=== PATIENT | male | born 1950 | race Caucasian/White ===

== ENCOUNTER 2017-05-04 03:11 | Emergency (ER) | payer MEDICARE, SELFPAY ==
[2017-05-04 03:12] VITALS: BP 147/76; PULSE 65; RESP 17; TEMP 36.6; O2SAT 98; BMI 24.0
--- NOTE | 2017-05-04 03:29 | CT_ITS ---
STUDY: CT ABDOMEN AND PELVIS WITHOUT CONTRAST REASON FOR EXAM: Male, 66 years old. Left flank pain RADIATION DOSAGE (If Supplied By Facility): CTDIvol = ( 6.31 ) mGy, DLP = ( 321.82 ) mGycm TECHNIQUE: Transaxial images were obtained from the dome of the diaphragm to the symphysis pubis without oral contrast, and without intravenous contrast. Sagittal and coronal images were reconstructed. Individualized dose optimization techniques were used for this CT. COMPARISON: October 28, 2013 FINDINGS: A stable 5 mm nodule is present in the right lower lobe, considered benign. The visualized portions of the heart are within normal limits. Normal liver. Normal gallbladder and extrahepatic biliary system. Normal spleen. Normal pancreas. Normal bilateral adrenal glands. Multiple bilateral nonobstructing renal calculi. A 5 mm stone is present in the distal left ureter at the level of the ureterovesical junction. There are changes of moderate acute obstructive uropathy on the left. Normal visualized stomach. Normal small intestine. Normal colon. The appendix is visualized and appears normal. There is diffuse atherosclerotic calcification of the abdominal aorta, without a demonstrated aneurysm. Normal inferior vena cava. Normal retroperitoneum. Normal urinary bladder. Normal abdominal wall. Bilateral nondisplaced L5-S1 pars interarticularis defects. CT/Abdomen/Pelvis without Cont IMPRESSION: A 5 mm stone is present in the distal left ureter at the level of the ureterovesical junction. There are changes of moderate acute obstructive uropathy on the left. Electronically Signed: Carlos Graham MD at 4:13 EST Tel , Service support ,
[2017-05-04 03:42] LABS: Absolute Lymphocyte Count 1.65 X10^3/ul (0.83-4.51); Absolute Neutrophil Count 9.8 X10^3/uL (2.0-7.7); Basophil# 0.02 X10^3/uL; Basophil% 0.2 % (0-1); Eosinophil# 0.45 X10^3/uL; Eosinophils% 3.4 % (0-5); Hemoglobin 13.3 g/dl (13.0-16.5); Lymphocyte # 1.65 X10^3/ul (4.0); Lymphocyte % 12.6 % (19-41); Mean Corpuscular Hgb 31.8 pg (27.0-32.0); Mean Corpuscular Volume 90.9 fL (80-94); Mean Platelet Vol. 8.7 fl (6.2-12.0); Monocyte# 1.16 X10^3/uL; Monocyte% 8.8 % (0-10); Neutrophil # 9.81 X10^3/uL (2.7-7.7); Neutrophil % 74.8 % (47-70); Platelet Count 307 K/mm3 (150-450); RBC Distribution Width SD 42.4 fl (35.1-43.9); Red Blood Count 4.18 M/mm3 (4.6-6.2); White Blood Count 13.1 K/mm3 (4.4-11.0)
[2017-05-04 03:46] LABS: POSITIVE COUNT NO; POSITIVE DIFFERENTIAL NO; POSITIVE MORPHOLOGY NO
[2017-05-04 03:51] LABS: Anion Gap 11 (5-15); BUN 31 mg/dL (7-18); BUN/Creat Ratio 19.6 RATIO (10-20); Calcium,Total 9.3 mg/dL (8.5-10.1); Chloride 105 mmol/L (98-107); Creatinine, Serum 1.58 mg/dL (0.70-1.30); EST Glomerular Filtration Rate 47 mL/min (>60); Est Glom Filt Rate - Afr Amer 56 mL/min (>60); Estimated Creatinine Clearance 46.84 ml/min; Glucose 127 mg/dL (74-106); Potassium 4.3 mmol/L (3.5-5.1); Sodium Level 140 mmol/L (136-145)
[2017-05-04] MEDS: Ketorolac 30 MG/ML Syringe IV (04:04)
[2017-05-04] MEDS: 0.9% Normal Saline 1,000 ML 250 ML IV (04:04)
[2017-05-04 04:14] LABS: Mucous, Urine 0 SEEN /hpf (<or=2+); Red Blood Cells-Urine 0 SEEN /hpf (0-5)
[2017-05-04 04:28] LABS: Color, Urine Yellow (Yellow); Glucose, Dipstick Normal (Normal); Ketone-Dipstick Negative (Negative); Leukocyte Esterase-Dipstick Negative /ul (Negative); Nitrite-Dipstick Negative (Negative); Occult Blood-Urine 150 /ul (Negative); Protein-Dipstick Negative (Negative); Urine Bilirubin Dipstick Negative (Negative); Urine Clarity Sl. Cloudy (Clear); Urine Urobilinogen Normal (Normal)
--- NOTE | 2017-05-04 04:29 | ED.VISSUMM ---
- ER Visit Summary Date of Service: 05/04/17 Chief Complaint: Suprapubic pain History of Present Illness: The patient is a 66 M sudden suprapubic tenderness awakening him at midnight. No nausea or vomiting. Normal bowel movement prior to midnight. Patient states similar symptoms in 2013 was found to have a kidney stone. Denies urinary symptoms. Her pain states constipation feeling however 7 out of 10. Colonoscopy 5-7 years ago with no acute findings. Denies any history of gastric ulcers or acute kidney injury. Past medical history: Hypertension, hypercholesterolemia, IA with one right coronary stent. GERD, sarcoidosis, kidney stones. Physical Examination: General: Alert and oriented ?3, mild distress HEENT: Normocephalic, atraumatic. Moist mucosa membranes Neck: supple, nontender. Cardiovascular: Regular rate and rhythm, no murmurs Respiratory: Normal breath sounds, symmetric, no distress Abdomen: Soft, mild suprapubic tenderness without guarding or rebound, nondistended. Normal bowel sounds. Back: No CVA tenderness. Extremities: Nontender, no edema, pulses intact ?4 Neuro: no focal neurological deficits. Test Results: WBC 13.1. Creatinine 1.58. Urine hematuria, no infection. CT abdomen pelvis: 5 mm left UVJ stone with moderate hydro- Emergency Department Course and Treatment: Patient nontoxic, nonsurgical abdomen. History similar with suprapubic discomfort, renal stone protocol initiated. States he had no kidney injuries or ulcers in the past therefore morphine and Toradol with and fluids were given. Creatinine did return slightly elevated 1.58. White count 13. Urine with blood without infection. CT scan notes a 5 mm left UVJ stone with moderate hydronephrosis. His symptoms were more controlled. He was started on Flomax he does see Dr. Lane. Plan will be continue Flomax, Percocet and Zofran as needed. Will hold NSAIDs due to renal insufficiency. States he has stone tested in the past may have been calcium stones. Treatment Plan: Symptomatic Disposition: [] Impression: Left urolithiasis This note was generated with [employer] dictation software. It may contain incorrect words, spelling, and punctuation that were not noted in review of the chart prior to signing ED Disposition - Plan for ED Patient: Disposition: Home or Assisted Living Chief Complaint: Abd Pain Diagnosis: Urolithiasis Instructions: ED Stone Renal W Colic Prescriptions: Oxycodone HCl/Acetaminophen [Percocet 5/325] 1 tablet PO Q6H PRN PRN 3 Days #12 tablet PRN Reason: Pain Ondansetron [Zofran Odt] 8 mg PO Q8H PRN PRN #10 tab PRN Reason: Nausea Tamsulosin HCl [Flomax] 0.4 mg PO DAILY #7 capsule Referrals: Abel Cunningham [Primary Care Provider] - Rufus Lane MD [STAFF PHYSICIAN] - 3-5 Days
[2017-05-04 04:35] LABS: White Blood Cells 0-5 SEEN /hpf (0-5)
[2017-05-04 04:36] LABS: Amorphous Sediment 1+; Bacteria 1+ /hpf (None Seen); Squamous Epithelial Cells - UA 0-5 SEEN /hpf (0-5)
[2017-05-04] MEDS: Tamsulosin HCl 0.4 MG Capsule PO (05:09)
[2017-05-04 05:15] VITALS: BP 132/59; PULSE 71; RESP 17; O2SAT 98
--- NOTE | 2017-05-04 05:15 | ED.RN ---
IV DC'ED, CATHETER INTACT, SMALL GAUZE DRESSING PLACED. PT WAITING UNTIL APPROX 6 AM TO CALL FOR RIDE.
--- NOTE | 2017-05-04 06:22 | ED.RN ---
DISCHARGE INSTRUCTIONS GIVEN TO AND REVIEWED WITH PATIENT, PATIENT DENIES QUESTIONS OR CONCERNS AND VOICES UNDERSTANDING OF DISCHARGE INSTRUCTIONS. PT AMBULATES OUT OF ROOM WITHOUT DIFFICULTY.
== END 2017-05-04 06:23 | disposition home or self-care (01) ==
PROVIDERS: Emergency Provider Emergency Medicine; Family Provider Internal Medicine; PCP Internal Medicine
DX: N13.2 Hydronephrosis with renal and ureteral calculous obstruction (principal); I25.10 Atherosclerotic heart disease of native coronary artery without angina pectoris; I25.2 Old myocardial infarction; K21.9 Gastro-esophageal reflux disease without esophagitis; I10 Essential (primary) hypertension; E78.00 Pure hypercholesterolemia, unspecified; D86.9 Sarcoidosis, unspecified; Z87.442 Personal history of urinary calculi; Z95.5 Presence of coronary angioplasty implant and graft; Z79.82 Long term (current) use of aspirin; Z79.899 Other long term (current) drug therapy
CPT/HCPCS: 74176; 80048; 81001; 85025; 96361; 96374; 96375; 99284; J7030; A4216

== ENCOUNTER 2017-05-18 12:20 | Day surgery (SDC) | payer MEDICARE, SELFPAY ==
[2017-05-11 09:19] VITALS: BP 142/68; PULSE 64; RESP 16; TEMP 36.6; O2SAT 99; BMI 24.5
[2017-05-18 12:40] VITALS: BP 136/71; PULSE 63; RESP 14; TEMP 36.9; O2SAT 98; BMI 24.5
[2017-05-18] MEDS: Cefazolin 2 GM in 0.9% Normal Saline 100 ML IV (15:15)
--- NOTE | 2017-05-18 15:49 | PCM.DC.URO ---
Discharge Diet: Light diet - advance as tolerated Discharge Activity: Return to Normal Activity Call your doctor if you observe: Fever of 101 or Higher, Uncontrolled pain Instructions: Shock Wave Lithotripsy Allergies/Adverse Reactions: Allergies No Known Allergies Allergy (Verified 05/11/17 08:58) Medications to take at Discharge Amlodipine [Norvasc] 10 mg PO QHS 05/04/17 Aspirin [Aspirin, Baby] 81 mg PO DAILY@0800 05/04/17 Atorvastatin Calcium [Lipitor] 40 mg PO QHS 05/04/17 Clopidogrel Bisulfate [Clopidogrel] 75 mg PO DAILY 05/04/17 Losartan Potassium [Cozaar] 100 mg PO DAILY 05/04/17 Omeprazole [Prilosec] 20 mg PO QODAY 05/04/17 Ranitidine [Zantac] 150 mg PO QODAY 05/04/17 Tamsulosin HCl [Flomax] 0.4 mg PO DAILY #7 capsule 05/04/17 Ascorbic Acid [Vitamin C] 500 mg PO DAILY 05/11/17 Hydrocodone/Acetaminophen [[place] 5-325 Tablet] 1 ea PO Q4H PRN PRN 7 Days #20 tab 05/18/17 The following prescriptions were given: Hydrocodone/Acetaminophen [[place] 5-325 Tablet] 1 ea PO Q4H PRN PRN 7 Days #20 tab PRN Reason: Pain Primary Care Physician: Abel Cunningham [Primary Care Provider] - Please Follow Up With: Rufus Lane MD - call if need to change appt. When: SundayJune 05 at 11 am, get xray before appt.
--- NOTE | 2017-05-18 15:55 | DCINST_ITS ---
Discharge Diet: Light diet - advance as tolerated Discharge Activity: Return to Normal Activity Call your doctor if you observe: Fever of 101 or Higher, Uncontrolled pain Instructions: Shock Wave Lithotripsy Allergies/Adverse Reactions: Allergies No Known Allergies Allergy (Verified 05/11/17 08:58) Medications to take at Discharge Amlodipine [Norvasc] 10 mg PO QHS 05/04/17 Aspirin [Aspirin, Baby] 81 mg PO DAILY@0800 05/04/17 Atorvastatin Calcium [Lipitor] 40 mg PO QHS 05/04/17 Clopidogrel Bisulfate [Clopidogrel] 75 mg PO DAILY 05/04/17 Losartan Potassium [Cozaar] 100 mg PO DAILY 05/04/17 Omeprazole [Prilosec] 20 mg PO QODAY 05/04/17 Ranitidine [Zantac] 150 mg PO QODAY 05/04/17 Tamsulosin HCl [Flomax] 0.4 mg PO DAILY #7 capsule 05/04/17 Ascorbic Acid [Vitamin C] 500 mg PO DAILY 05/11/17 Hydrocodone/Acetaminophen [[place] 5-325 Tablet] 1 ea PO Q4H PRN PRN 7 Days #20 tab 05/18/17 The following prescriptions were given: Hydrocodone/Acetaminophen [[place] 5-325 Tablet] 1 ea PO Q4H PRN PRN 7 Days #20 tab PRN Reason: Pain Primary Care Physician: Abel Cunningham [Primary Care Provider] - Please Follow Up With: Rufus Lane MD - call if need to change appt. When: SundayJune 05 at 11 am, get xray before appt.
--- NOTE | 2017-05-18 16:12 | PCM.OPRPT ---
Problem List (1) Calculus of left kidney Status: Acute Report of Operation Date of Procedure: 05/18/17 Pre-Operative Diagnosis: Left kidney stones and distal left ureter stone Post-Operative Diagnosis: Ureteral stone had passed, treatment of left kidney stones Surgery/Procedure Performed:: Cystoscopy and placement of a left ureteral catheter and left extracorporeal shockwave lithotripsy Description of Surgical Findings:: 66-year-old male was taken back to the operating room at the smooth induction of general anesthesia he was placed supine on the table the penis and testicles were prepped and draped in usual sterile fashion. Went into the bladder with a 21 [place] rigid cystourethroscope, the entire length the urethra is normal sphincter normal the prostate is normal cannulated the left ureteral orifice with a Glidewire and a Pollack catheter and was made not able to see a stone in the distal left ureter therefore no treatment was done to get past the stone. Preoperatively reported no more pain. I then removed the wire and drain the bladder remove the cystoscope we then repositioned the patient on the lithotripter table he had some stones lower pole the left kidney the stones and underwent treatment with shockwave lithotripsy a total of 3000 shocks were delivered to the stones at a rate of 90, power of 7. At the end of the treatment cycle looks of the stones only broken some not a complete fragmentation appeared to be really hard stones he may require either a second treatment or ureteroscopy and laser to break the stones no stent was placed at the stones are nonobstructive patient anesthetic was reversed and he was taken back to PACU in good condition. He will follow-up in the office with a KUB. Type of Anesthesia:: General Drains: none - Admit VTE Documentation VTE Present on Admission: No VTE Mechan Device Prophylaxis: SCD's
[2017-05-18 16:26] VITALS: BP 120/68; BP 136/71; PULSE 68; RESP 18; TEMP 36.4; O2SAT 95
[2017-05-18 16:30] VITALS: BP 126/71; BP 136/71; PULSE 68; RESP 18; O2SAT 96
[2017-05-18 16:46] VITALS: BP 135/74; BP 136/71; PULSE 70; RESP 18; TEMP 36.2; O2SAT 98
[2017-05-18 18:25] VITALS: BP 136/71
== END 2017-05-18 18:26 | disposition home or self-care (01) ==
LOC: SDC 12:21 → AC 12:22
PROVIDERS: Family Provider Internal Medicine; PCP Internal Medicine; Visit Provider Urology
PROC: (CPT 50590; principal; 2017-05-18 14:00)
DX: N20.2 Calculus of kidney with calculus of ureter (principal); I25.2 Old myocardial infarction; H91.90 Unspecified hearing loss, unspecified ear; H54.7 Unspecified visual loss; I10 Essential (primary) hypertension; Z95.5 Presence of coronary angioplasty implant and graft; Z79.02 Long term (current) use of antithrombotics/antiplatelets; Z79.899 Other long term (current) drug therapy; Z79.82 Long term (current) use of aspirin; K21.9 Gastro-esophageal reflux disease without esophagitis; E78.00 Pure hypercholesterolemia, unspecified; Z87.442 Personal history of urinary calculi; Z85.828 Personal history of other malignant neoplasm of skin
CPT/HCPCS: 50590; 86850; 86900; J7120; C1769; J2405

== ENCOUNTER → 2017-06-04 16:00 | Outpatient (CLI) | payer MEDICARE, SELFPAY ==
--- NOTE | 2017-06-04 16:00 | RAD_ITS ---
STUDY: X-RAY - ABDOMEN/PELVIS REASON FOR EXAM: Male, 66 years old. Left kidney stone status post lithotripsy. TECHNIQUE: Single AP view of the abdomen / pelvis. COMPARISON: CT scan 05/04/2017, KUB 11/21/2016. FINDINGS: Normal visualized lung bases. There is an unremarkable bowel gas pattern. There is no demonstrated free abdominal air. There is a 1.4 cm elongated stone or collection of tiny stones in the lower pole of the left kidney, very likely a collection of gravel from previous lithotripsy. No other definite renal or ureteral stones. The visualized liver, spleen and kidneys are grossly normal in size and morphology. Normal soft tissue structures. Normal visualized osseous structures. RAD/Abdomen Single View IMPRESSION: Probable 1.4 cm collection of tiny stones in the lower pole of the left kidney. Electronically Signed: Amol Fiore MD at 23:35 EDT , Service support ,
== END ==
PROVIDERS: Family Provider Internal Medicine; PCP Internal Medicine; Visit Provider Nurse Practitioner Adult Health
DX: N20.0 Calculus of kidney (principal)
CPT/HCPCS: 74018

== ENCOUNTER → 2017-06-12 15:55 | Outpatient (CLI) | payer MEDICARE, SELFPAY ==
[2017-06-12 17:34] LABS: BNP,B-Type NATRIURETIC PEPTIDE 24.4 pg/mL (0-100)
[2017-06-12 17:37] LABS: Anion Gap 8 (5-15); BUN 23 mg/dL (7-18); BUN/Creat Ratio 16.2 RATIO (10-20); Calcium,Total 9.2 mg/dL (8.5-10.1); Chloride 107 mmol/L (98-107); Creatinine, Serum 1.42 mg/dL (0.70-1.30); EST Glomerular Filtration Rate 53 mL/min (>60); Est Glom Filt Rate - Afr Amer 64 mL/min (>60); Glucose 74 mg/dL (74-106); Potassium 4.4 mmol/L (3.5-5.1); Sodium Level 141 mmol/L (136-145)
== END ==
PROVIDERS: Family Provider Internal Medicine; PCP Internal Medicine; Visit Provider Physician Assistant Medical
DX: I25.10 Atherosclerotic heart disease of native coronary artery without angina pectoris (principal); I15.9 Secondary hypertension, unspecified; R06.09 Other forms of dyspnea
CPT/HCPCS: 36415; 80048; 83880

== ENCOUNTER → 2017-09-07 06:45 | Outpatient (CLI) | payer MEDICARE, SELFPAY ==
--- NOTE | 2017-09-07 14:30 | STRESSREP_ITS ---
Stress Test Report Exercise myocardial perfusion stress test. 67-year-old man with a history of shortness of breath previous known coronary artery disease in the left anterior descending artery distribution. Medication aspirin clopidogrel Cozaar Prilosec amlodipine atorvastatin. Stress protocol: Resting EKG demonstrates sinus rhythm with a rate of 62 bpm normal intervals and noted resting blood pressure is 138/80 mmHg. The patient exercised according to regular Teo protocol for 7 minutes and 15 seconds attaining a maximum heart rate of 141 bpm 92% of maximum predicted heart rate. Patient completed 1 minute and 15 seconds to stage III of the Teo protocol. The maximum workload attained was 8.9 metabolic equivalents. At rest no ST or T- wave changes were noted suggest ischemia. At peak exercise was approximately 1.[address] depression noted in lead V5 and V6 which rapidly normalized during recovery. The above findings are not diagnostic of ischemia. The resting blood pressure 138/80 mmHg with a peak blood pressure 184/40 mmHg rate pressure product was 24,400. Patient experienced slight shortness of breath but no chest pain. Myocardial perfusion protocol: 10.8 mCi of technetium 99m sestamibi was injected at rest. The patient exercised according to regular Teo protocol for 7 minutes and 15 seconds attaining 92% of maximum predicted heart rate at peak exercise 32.3 mCi of technetium 99m sestamibi was injected stress images were obtained stress and rest images were reconstructed and compared in the short axis vertical long and horizontal long axis. Gated images were also obtained. Perfusion SPECT analysis: Review of the stress images demonstrate normal uptake of tracer noted in all areas of the myocardium. The resting images similarly demonstrate normal uptake of tracer noted in all areas of the myocardium. No areas of reversibility are noted suggest ischemia and no previous infarct is noted. Gated SPECT analysis. The gated ejection fraction is 63%. Conclusion: Exercise myocardial perfusion stress test with no evidence of ischemia noted at a moderate workload. No clinical angina noted. Preserved ejection fraction.
== END ==
PROVIDERS: Family Provider Internal Medicine; PCP Internal Medicine; Visit Provider Internal Medicine Cardiovascular Disease
DX: R06.02 Shortness of breath (principal)
CPT/HCPCS: 78452; 93017; A9500; A4216

== ENCOUNTER → 2017-11-23 07:20 | Outpatient (CLI) | payer MEDICARE, SELFPAY ==
[2017-11-23 07:46] LABS: Absolute Lymphocyte Count 1.08 X10^3/ul (0.83-4.51); Absolute Neutrophil Count 4.6 X10^3/uL (2.0-7.7); Basophil# 0.02 X10^3/uL; Basophil% 0.3 % (0-1); Eosinophil# 0.57 X10^3/uL; Eosinophils% 7.7 % (0-5); Hematocrit 37.7 % (40-54); Hemoglobin 12.7 g/dl (13.0-16.5); Lymphocyte # 1.08 X10^3/ul (4.0); Lymphocyte % 14.6 % (19-41); Mean Corp Hgb Conc 33.7 g/gl (32-36); Mean Corpuscular Hgb 30.9 pg (27.0-32.0); Mean Corpuscular Volume 91.7 fL (80-94); Mean Platelet Vol. 8.4 fl (6.2-12.0); Monocyte% 14.9 % (0-10); Neutrophil # 4.61 X10^3/uL (2.7-7.7); Neutrophil % 62.4 % (47-70); POSITIVE COUNT NO; POSITIVE DIFFERENTIAL NO; POSITIVE MORPHOLOGY NO; Platelet Count 262 K/mm3 (150-450); RBC Distribution Width CV 13.1 % (11.6-14.6); RBC Distribution Width SD 43.8 fl (35.1-43.9); Red Blood Count 4.11 M/mm3 (4.6-6.2); White Blood Count 7.4 K/mm3 (4.4-11.0)
[2017-11-23 08:12] LABS: AST(SGOT) 21 U/L (15-37); Alanine Aminotransfer ALT/SGPT 31 U/L (16-61); Albumin, Serum 3.8 g/dL (3.2-5.0); Alkaline Phosphatase 80 U/L (45-117); Anion Gap 6 (5-15); BUN 32 mg/dL (7-18); BUN/Creat Ratio 18.7 RATIO (10-20); Calcium,Total 9.2 mg/dL (8.5-10.1); Chloride 107 mmol/L (98-107); Cholesterol 128 mg/dL (200); Creatinine, Serum 1.71 mg/dL (0.70-1.30); EST Glomerular Filtration Rate 43 mL/min (>60); Est Glom Filt Rate - Afr Amer 51 mL/min (>60); Globulin 3.8 g/dL (2.2-4.2); Glucose 92 mg/dL (74-106); High Density Lipoprotein 38 mg/dL; PSA,Total - Annual Screen 3.61 ng/mL (0.00-4.00); Potassium 4.7 mmol/L (3.5-5.1); Protein, Total 7.6 g/dL (6.4-8.2); Sodium Level 142 mmol/L (136-145); Triglycerides 181 mg/dL; Very Low Density Lipoprotein 36 mg/dL (5-40)
== END ==
PROVIDERS: Family Provider Internal Medicine; PCP Internal Medicine; Referring Provider Internal Medicine; Visit Provider Internal Medicine
DX: I25.10 Atherosclerotic heart disease of native coronary artery without angina pectoris (principal); Z12.5 Encounter for screening for malignant neoplasm of prostate
CPT/HCPCS: 36415; 80053; 80061; 84153; 85025; G0103

== ENCOUNTER → 2018-01-07 14:07 | Outpatient (CLI) | payer MEDICARE, SELFPAY ==
[2018-01-07 16:08] LABS: BUN 36 mg/dL (7-18); Creatinine, Serum 1.64 mg/dL (0.70-1.30); Glucose 86 mg/dL (74-106)
[2018-01-07 16:09] LABS: Anion Gap 9 (5-15); Chloride 108 mmol/L (98-107); EST Glomerular Filtration Rate 45 mL/min (>60); Est Glom Filt Rate - Afr Amer 54 mL/min (>60); Potassium 4.1 mmol/L (3.5-5.1); Sodium Level 140 mmol/L (136-145)
== END ==
PROVIDERS: Family Provider Internal Medicine; PCP Internal Medicine; Referring Provider Internal Medicine; Visit Provider Internal Medicine
DX: N18.3 Chronic kidney disease, stage 3 (moderate) (principal)
CPT/HCPCS: 36415; 80048

== ENCOUNTER → 2018-02-20 08:16 | Outpatient (CLI) | payer MEDICARE, SELFPAY ==
--- NOTE | 2018-02-20 08:19 | US_ITS ---
STUDY: RENAL ULTRASOUND - COMPLETE REASON FOR EXAM: Male, 67 years old. TECHNIQUE: Ultrasound evaluation of the kidneys was performed with real-time and static kenney-scale imaging. COMPARISON: None. FINDINGS: RIGHT KIDNEY: Normal location of the right kidney, which is normal in size. The right kidney measures 9.7 x 4.5 x 4 cm cm. There is a normal cortex of the right kidney. The renal cortex measures 1 cm. There is no right renal mass or cyst. There are no right renal calculi. There is no right hydronephrosis. DISTAL RIGHT URETER: There is non-visualization of the distal right ureter. There is no demonstrated right ureterovesical junction calculus. There is a visualized right ureteral jet. LEFT KIDNEY: Normal location of the left kidney, which is normal in size. The left kidney measures 9.7 x 5.9 x 5 cm cm. There is a normal cortex of the left kidney. The renal cortex measures 1.5 cm. There is no left renal mass or cyst. There are 3 calculi measure: 5 mm, 2 mm of 2 mm. There is no left hydronephrosis. DISTAL LEFT URETER: There is non-visualization of the distal left ureter. There is no demonstrated left ureterovesical junction calculus. There is a visualized left ureteral jet. BLADDER: The distended urinary bladder has a volume of 327 ml. The empty urinary bladder has a volume of 39 ml. There is a normal wall thickness of the distended urinary bladder. There is no demonstrated mass within the urinary bladder. There are no demonstrated bladder calculi. US/Kidney and Bladder IMPRESSION: Normal ultrasound of the kidneys and urinary bladder. Electronically Signed: Luisa Velazquez, at 11:03 EST Tel , Service support ,
== END ==
PROVIDERS: Family Provider Internal Medicine; PCP Internal Medicine; Referring Provider Internal Medicine Nephrology; Visit Provider Internal Medicine Nephrology
DX: N18.3 Chronic kidney disease, stage 3 (moderate) (principal)
CPT/HCPCS: 76770

== ENCOUNTER → 2018-05-03 06:45 | Outpatient (CLI) | payer MEDICARE, SELFPAY ==
[2017-08-16 13:23] VITALS: BMI 23.9
[2018-05-03 07:40] LABS: ALB/GLOB Ratio 1.1 RATIO (0.9-2.4); AST(SGOT) 25 U/L (15-37); Alanine Aminotransfer ALT/SGPT 29 U/L (16-61); Albumin, Serum 3.9 g/dL (3.2-5.0); Alkaline Phosphatase 91 U/L (45-117); Anion Gap 6 (5-15); BUN 26 mg/dL (7-18); BUN/Creat Ratio 17.8 RATIO (10-20); Calcium,Total 8.7 mg/dL (8.5-10.1); Chloride 109 mmol/L (98-107); Creatinine, Serum 1.46 mg/dL (0.70-1.30); EST Glomerular Filtration Rate 51 mL/min (>60); Est Glom Filt Rate - Afr Amer 62 mL/min (>60); Globulin 3.7 g/dL (2.2-4.2); Glucose 95 mg/dL (74-106); Potassium 4.7 mmol/L (3.5-5.1); Protein, Total 7.6 g/dL (6.4-8.2); Sodium Level 139 mmol/L (136-145)
== END ==
PROVIDERS: Family Provider Internal Medicine; PCP Internal Medicine; Referring Provider Internal Medicine; Visit Provider Internal Medicine
DX: N18.3 Chronic kidney disease, stage 3 (moderate) (principal); I25.10 Atherosclerotic heart disease of native coronary artery without angina pectoris
CPT/HCPCS: 36415; 80053

== ENCOUNTER → 2018-06-18 | Outpatient (CLI) | payer MEDICARE, SELFPAY ==
[2018-06-18 15:34] LABS: Absolute Neutrophil Count 3.8 X10^3/uL (2.0-7.7); Basophil# 0.02 X10^3/uL; Basophil% 0.3 % (0-1); Eosinophil# 0.42 X10^3/uL; Eosinophils% 6.7 % (0-5); Hematocrit 36.7 % (40-54); Hemoglobin 12.5 g/dl (13.0-16.5); Lymphocyte % 17.5 % (19-41); Mean Corp Hgb Conc 34.1 g/gl (32-36); Mean Corpuscular Hgb 31.1 pg (27.0-32.0); Mean Corpuscular Volume 91.3 fL (80-94); Mean Platelet Vol. 8.3 fl (6.2-12.0); Monocyte# 0.96 X10^3/uL; Monocyte% 15.3 % (0-10); Neutrophil # 3.78 X10^3/uL (2.7-7.7); Platelet Count 271 K/mm3 (150-450); Red Blood Count 4.02 M/mm3 (4.6-6.2); White Blood Count 6.3 K/mm3 (4.4-11.0)
[2018-06-18 15:35] LABS: POSITIVE COUNT NO; POSITIVE DIFFERENTIAL NO; POSITIVE MORPHOLOGY NO
[2018-06-18 15:46] LABS: Albumin, Serum 4.1 g/dL (3.2-5.0); BUN 28 mg/dL (7-18); BUN/Creat Ratio 19.2 RATIO (10-20); Chloride 108 mmol/L (98-107); Creatinine, Serum 1.46 mg/dL (0.70-1.30); EST Glomerular Filtration Rate 51 mL/min (>60); Est Glom Filt Rate - Afr Amer 62 mL/min (>60); Glucose 91 mg/dL (74-106); PSA,Total- Diagnostic 4.03 ng/mL (0.0-4.0); Phosphorus 3.2 mg/dL (2.5-4.9); Potassium 4.5 mmol/L (3.5-5.1); Sodium Level 137 mmol/L (136-145)
[2018-06-18 15:56] LABS: PTHIN 31.2 pg/mL (18.4-80.1); Vitamin D,25 Hydroxy 15.5 ng/mL (29.95-100.01)
[2018-06-18 16:10] LABS: Protein, Urine (Random) < 6.0 mg/dL (<11.9)
== END | disposition home or self-care (01) ==
PROVIDERS: Family Provider Internal Medicine; PCP Internal Medicine; Referring Provider Internal Medicine Nephrology; Visit Provider Internal Medicine Nephrology
DX: N18.3 Chronic kidney disease, stage 3 (moderate) (principal); R97.20 Elevated prostate specific antigen [PSA]; Z13.0 Encounter for screening for diseases of the blood and blood-forming organs and certain disorders involving the immune mechanism
CPT/HCPCS: 36415; 80069; 82306; 82570; 83970; 84153; 84156; 85025

== ENCOUNTER → 2018-08-08 | Outpatient (CLI) | payer MEDICARE, SELFPAY ==
[2017-08-16 13:23] VITALS: BMI 23.9
--- NOTE | 2018-08-08 | IMM_PTH ---
PATIENT: ANDRÉS GUEVARA LOC: [facility] U#:[id number] AGE/SX: 68/M ROOM: RE08/08/[address]: Dr. Rufus Lane MD : 1950 BED: DIS: 08/08/2018 SPEC #: [id number] RECD: 08/12/18 10:31 STATUS: GUERITA REQ #: [id number] ALE: 08/08/18 00:[address]: Rufus Lane DEPT: IMMUNOHISTOCHEMISTRY RECD BY: Jayde Melo ENTERED: 08/12/18 10:33 SP TYPE: IMMUNO OTHR DR: Dr. Abel Cunningham MD Tissues: C - PROSTATE RIGHT D - PROSTATE LEFT E - PROSTATE LEFT F - PROSTATE LEFT Procedures: 34BE12 (add) P40 (add) 34BE12 (initial) PHYSICIAN & INSTITUTION [place] [id number] SPECIMEN INFORMATION: Tissue Source: C - Right base, D - Left apex, E - Left mid, F - Left base Clinical Info: Elevated PSA Specimen Number: [id number] C-F CPT code: 85675, 06846 x7 METHODOLOGY: Deparaffinized sections of prefer/formalin-fixed tissue or PAP/DQ stained slides are incubated with monoclonal/polyclonal antibodies/oligonucleotide probes. Localization is made via biotin free immunoperoxidase method. Appropriate controls are performed and reacted as expected. Results on target cell population are indicated in the following table: RESULTS: ANTIBODY / CLONE RESULT Block C P40 (BC28) negative 34BE12 (34BE12) negative Block D P40 (BC28) negative 34BE12 (34BE12) negative Block E P40 (BC28) positive 34BE12 (34BE12) positive Block F P40 (BC28) positive 34BE12 (34BE12) positive These tests were developed and their performance characteristics determined by [facility]. They may not have been cleared or approved by the U.S. Food and Drug Administration. The FDA has determined that such clearance or approval is not necessary. INTERPRETATION: C. Right prostate, base, core biopsy: Adenocarcinoma. D. Left prostate, apex, core biopsy: Adenocarcinoma. E. Left prostate, mid, core biopsy: Focal high-grade prostatic intraepithelial neoplasia. F. Left prostate, base, core biopsy: Focal high-grade prostatic intraepithelial neoplasia. AM:tutu 08/13/18
--- NOTE | 2018-08-08 08:00 | PROSBIL_PTH ---
PATIENT: ANDRÉS GUEVARA LOC: [facility] U#:[id number] AGE/SX: 68/M ROOM: RE08/08/[address]: Dr. Rufus Lane MD : 1950 BED: DIS: 08/08/2018 SPEC #: [id number] RECD: 08/08/18 14:51 STATUS: GUERITA DINESH #: [id number] ALE: 08/08/18 08:[address]: Rufus Lane DEPT: SURGICAL PATHOLOGY RECD BY: Madan Martinez ENTERED: 08/09/18 09:05 SP TYPE: PROST BX SUN DR: Dr. Abel Cunningham MD Tissues: A - PROSTATE RIGHT B - PROSTATE RIGHT C - PROSTATE RIGHT D - PROSTATE LEFT E - PROSTATE LEFT F - PROSTATE LEFT Procedures: PROSTATE BX HEADER OPERATION: Prostate biopsy PRE-OP DIAGNOSIS: R97.20 TISSUE SUBMITTED: A - Right apex, B - Right mid, C - Right base, D - Left apex, E - Left mid, F - Left base MICROSCOPIC DIAGNOSIS A. Right prostate, apex, core biopsy: Adenocarcinoma: Nelson grade: 6 (3+3) Cores involved: 1 out of 1 core Tissue involved: 60% Greatest tumor length: 9 mm (discontinuous) B. Right prostate, mid, core biopsy: Adenocarcinoma: [place] grade: 6 (3+3) Cores involved: 2 out of 2 cores Tissue involved: 35% Greatest tumor length: 4 mm C. Right prostate, base, core biopsy: Adenocarcinoma: Nelson grade: 6 (3+3) Cores involved: 2 out of 2 cores Tissue involved: 35% Greatest tumor length: <1 mm (two foci each measuring <1 mm each) See comment. D. Left prostate, apex, core biopsy: Adenocarcinoma: [place] grade: 6 (3+3) Cores involved: 1 out of 1 core Tissue involved: 2% Greatest tumor length: 1 mm See comment. E. Left prostate, mid, core biopsy: Focal high-grade prostatic intraepithelial neoplasia (HGPIN). See comment. F. Left prostate, base, core biopsy: Focal high-grade prostatic intraepithelial neoplasia (HGPIN). See comment. AM:tutu 08/12/18 COMMENT C-F. Immunohistochemistry ([id number]) supports the above diagnosis. Case has been reviewed in consultation with Dr. Perez who concurs with the above diagnosis. IDC:SJ MICROSCOPIC DESCRIPTION Slides are reviewed. GROSS DESCRIPTION A - Received is one container designated prostate, right apex. The specimen consists of one elongated fragment of light gonzales-white soft tissue measuring 1.5 cm in length and 0.1 cm in diameter. The specimen is totally submitted in one cassette. B - Received is one container designated prostate, right mid. The specimen consists of two elongated fragments of light gonzales-white soft tissue measuring 1.5 and 1.8 cm in length and 0.1 cm in diameter. The specimen is totally submitted in one cassette. C - Received is one container designated prostate, right base. The specimen consists of two elongated fragments of light gonzales-white soft tissue measuring 1 and 1.5 cm in length and 0.1 cm in diameter. The specimen is totally submitted in one cassette. D - Received is one container designated prostate, left apex. The specimen consists of one elongated fragment of light gonzales-white soft tissue measuring 1 cm in length and 0.1 cm in diameter. The specimen is totally submitted in one cassette. E - Received is one container designated prostate, left mid. The specimen consists of two elongated fragments of light gonzales-white soft tissue each measuring 1.3 cm in length and 0.1 cm in diameter. The specimen is totally submitted in one cassette. F - Received is one container designated prostate, left base. The specimen consists of two elongated fragments of light gonzales-white soft tissue each measuring 1.7 cm in length and 0.1 cm in diameter. The specimen is totally submitted in one cassette. / SJ:rg 08/09/18 TC:0 [facility]: [id number]
== END | disposition home or self-care (01) ==
LOC: LABSPEC 15:00
PROVIDERS: Family Provider Internal Medicine; PCP Internal Medicine; Referring Provider Urology; Visit Provider Urology
DX: C61 Malignant neoplasm of prostate (principal)
CPT/HCPCS: 88305; 88341; 88342; G0416

== ENCOUNTER 2018-09-18 05:56 | Day surgery (SDC) | payer MEDICARE, SELFPAY ==
[2018-08-21 08:51] VITALS: BMI 23.8
[2018-09-09 13:39] VITALS: BP 134/71; PULSE 56; RESP 16; TEMP 36.5; O2SAT 98; BMI 24.2
--- NOTE | 2018-09-09 13:54 | SDCEKG_ITS ---
Test Reason : Blood Pressure : / mmHG Vent. Rate : 053 BPM Atrial Rate : 053 BPM P-R Int : 200 ms QRS Dur : 106 ms QT Int : 418 ms P-R-T Axes : 044 062 041 degrees QTc Int : 392 ms Sinus bradycardia Otherwise normal ECG Confirmed by JUNE MEDINA, EVELYN ([id number]), editor book JOSEPH MAO ([id number]) on 09/13/2018 1:43:33 PM Referred By: Rufus Lane Confirmed By:JOSH WATKINS MD
[2018-09-10 11:50] LABS: Hematocrit 35.9 % (40-54); Hemoglobin 12.1 g/dL (13.0-16.5); Mean Corp Hgb Conc 33.7 g/dL (32-36); Mean Corpuscular Hgb 31.5 pg (27.0-32.0); Mean Corpuscular Volume 93.5 fL (80-94); Mean Platelet Vol. 8.9 fl (6.2-12.0); Platelet Count 251 K/mm3 (150-450); RBC Distribution Width CV 12.6 % (11.6-14.6); RBC Distribution Width SD 42.9 fl (35.1-43.9); Red Blood Count 3.84 M/mm3 (4.6-6.2); White Blood Count 5.6 K/mm3 (4.4-11.0)
[2018-09-10 12:16] LABS: Anion Gap 9 (5-15); BUN 30 mg/dL (7-18); BUN/Creat Ratio 19.5 RATIO (10-20); Calcium,Total 9.2 mg/dL (8.5-10.1); Chloride 108 mmol/L (98-107); Creatinine, Serum 1.54 mg/dL (0.70-1.30); EST Glomerular Filtration Rate 48 mL/min (>60); Est Glom Filt Rate - Afr Amer 58 mL/min (>60); Estimated Creatinine Clearance 45.27 ml/min; Glucose 89 mg/dL (74-106); Potassium 4.4 mmol/L (3.5-5.1); Sodium Level 142 mmol/L (136-145)
[2018-09-18] VITALS (10 sets, daily range): BP systolic 88–119; BP diastolic 47–67; PULSE 53–74; RESP 14–18; TEMP 36.1–37.7; O2SAT 92–100; BMI 24.2
[2018-09-18] MEDS: Cefazolin 2 GM in 0.9% Normal Saline 100 ML IV (00:26)
--- NOTE | 2018-09-18 07:30 | PROST_PTH ---
PATIENT: ANDRÉS GUEVARA LOC: [facility] U#:[id number] AGE/SX: 68/M ROOM: RE09/18/[address]: Dr. Rufus Lane MD : 1950 BED: DIS: 09/19/2018 SPEC #: [id number] RECD: 09/18/18 11:33 STATUS: GUERITA REGenet #: [id number] ALE: 09/18/18 07:[address]: Rufus Lane DEPT: SURGICAL PATHOLOGY RECD BY: Aleksandr Fofana ENTERED: 09/18/18 12:30 SP TYPE: PROSTATE OTHR DR: Dr. Abel Cunningham MD Tissues: B - Prostate, NOS A - Prostate, NOS Procedures: Surgery Specimen Level IV Surgery Specimen Level HEADER OPERATION: Laparoscopic robotic radical prostatectomy with nerve monitor PRE-OP DIAGNOSIS: Malignant neoplasm of prostate; family history of malignant neoplasm of prostate; elevated PSA TISSUE SUBMITTED: A - Fat over prostate, B - Prostate MICROSCOPIC DIAGNOSIS A. Fat over prostate, biopsy: Mature adipose tissue. Negative for carcinoma. B. Prostate, radical prostatectomy: Invasive adenocarcinoma. See cancer checklist below. AM:tutu 09/20/18 COMMENT PROSTATE CANCER (RADICAL) SUMMARY: Procedure - radical prostatectomy Prostate size - 4 x 3.5 x 3 cm Prostate weight - 34.5gm Lymph node sampling - one incidental, benign microscopic idania prostatic lymph node Histologic type - adenocarcinoma Histologic grade (Kemmerer Pattern): Primary pattern - 3 Secondary pattern - 4 Tertiary pattern - N/A Total Kemmerer score - 7 Tumor Quantitation - 2.5 x 2 x 1.2 cm (from glass slides) Extraprostatic extension - not identified Seminal vesicle invasion - not identified Margins - Margins focally involved by invasive carcinoma (anterior margin). Treatment effect on carcinoma - unknown Lymph-Vascular invasion - not identified Perineural invasion - focally present Other findings - Focal high-grade prostatic intraepithelial neoplasia. PATHOLOGIC STAGE: pT2c N0 Mx The above summary is in compliance with [employer] [place] Pathology (CAP) Cancer Protocols Checklist and [place] Joint Committee on Cancer (AJCC), Staging Manual, 8th Ed. A single minute periprostatic lymph node is identified and is negative for metastatic carcinoma. Case has been reviewed in consultation with Dr. Perez who concurs with the above diagnosis. IDC:[id number] MICROSCOPIC DESCRIPTION Slides are reviewed. GROSS DESCRIPTION A - Received in fixative is one container labeled with the patient's name and designated fat over prostate. The specimen consists of a piece of yellow adipose tissue measuring 3.5 x 2.5 x 0.4 cm. No mass lesion is identified. The entire specimen is submitted in one cassette. The specimen will be submitted after overnight fixation. / SJ:rg 09/18/18 B - Received in fixative is one container labeled with the patient's name and designated prostate. The specimen consists of a radical prostatectomy specimen consisting of prostate and bilateral seminal vesicle and vas deferens weighing 34.5 gm. The prostate measures 4 cm transversely, 3.5 cm anterior-posteriorly and 3 cm from superior to inferior margin. The right seminal vesicle measures 3 x 2.5 x 0.5 cm and right vas deferens measures 2.5 cm in length and 0.4 cm in diameter and left seminal vesicle measures 2.5 x 1 x 0.5 cm and left vas deferens measures 2 cm in length and 0.4 cm in diameter. The specimen is inked as follows: prostate anterior surface - yellow, posterior surface - black, right lateral surface - blue, left lateral surface - green, anterior surface right seminal vesicle and vas deferens - blue, anterior surface left seminal vesicle and vas deferens - green and posterior surface, bilateral seminal vesicle and vas deferens - black. Sections do not reveal any obviously mass lesion. Mileage Clerk sections are submitted in 20 cassettes as follows: 1 - right vas deferens and seminal vesicle, 2 - left vas deferens and seminal vesicle, 3 - distal urethral margin, 4 & 5 - bladder shave (distal mucosal margin) and including most basal portion of prostate, 6-10 - apical portion of prostate, 11-14 - middle portion of prostate, 1520 - basal portion of prostate. More than 95% of the prostate is submitted. / SJ:rg 09/19/18 TC:0 CPT: 75909, 65746
--- NOTE | 2018-09-18 07:42 | DCINST_ITS ---
Discharge Diet: Light diet - advance as tolerated Discharge Activity: May not drive while taking narcotic pain medications., May Shower Return to work on:: 10/30/18 May shower in (days): 1 Call your doctor if your incision/area has: Continuous Slow Oozing, Sudden Increased Bleeding, Increased Pain/ Swelling, Increased Redness, Foul Smelling Discharge, Swelling at the incision site Call your doctor if you observe: Fever of 101 or Higher, Inability to urinate, Inability to have a bowel movement, Shortness of breath, Chest pain, Calf discomfort, Uncontrolled pain Suture Line Care: Avoid Pulling/Pushing, Avoid Pinching/Bending Cleanse incision/area with: Soap & Water Catheter: Moya to leg bag, Moya to large bag Drain: [place] Instructions: Radical Prostatectomy Allergies/Adverse Reactions: Allergies No Known Allergies Allergy (Verified 09/09/18 13:21) Medications to take at Discharge Aspirin [Aspirin, Baby] 81 mg PO DAILY@0800 05/04/17 clopidogrel 75 mg tablet 75 mg PO DAILY #90 tab 03/18/18 losartan 100 mg tablet 100 mg PO DAILY #90 tab 04/12/18 amlodipine 10 mg tablet 10 mg PO QHS #90 tab 05/22/18 atorvastatin 40 mg tablet 40 mg PO QHS #90 tab 05/22/18 ranitidine 75 mg tablet 75 mg PO BID 08/21/18 Orders to be completed after discharge: T&S with Crossmatch, Red Cells Time Frame: 09/09/18, Facility: [facility], Location: Laboratory Type & Screen Time Frame: 09/09/18, Facility: [facility], Location: Laboratory Basic Metabolic Profile (BMP) Time Frame: 09/09/18, Facility: [facility], Location: Laboratory CBC-Complete Blood Cnt No Diff Time Frame: 09/09/18, Facility: [facility], Location: Laboratory Primary Care Physician: Abel Cunningham [Primary Care Provider] - Test Results: Test results from this visit will be discussed in further detail at your follow- up appointment, if applicable. Please Follow Up With: Rufus Lane MD When: please call to make an appointment- next to karen moya Proposed Discharge Date: 09/19/18
[2018-09-18] MEDS: Bupivacaine Mpf 0.5% 30 ML VIAL (10:30)
--- NOTE | 2018-09-18 10:38 | PCM.OPRPT ---
Report of Operation Date of Procedure: 09/18/18 Pre-Operative Diagnosis: Prostate cancer Post-Operative Diagnosis: Same Surgery/Procedure Performed:: Laparoscopic robotic assisted radical prostatectomy with bilateral nerve sparing, EMG monitoring of pelvic nerves, suture suspension of the urethra. Description of Surgical Findings:: 68-year-old male was taken back to the operating room after smooth induction of general anesthesia he was placed in dorsal lithotomy position with the legs in stirrups we made sure all his pressure points were padded. He underwent general anesthesia with Dr. Chang. After endotracheal intubation was completed he was given IV antibiotics, SCDs were in place for DVT prophylaxis. The abdomen was shaved prepped and draped in usual sterile fashion as well as the penis and testicles were prepped into the field. We then draped the field. Gibbs catheter was placed into the bladder with 10 cc of put into the catheter and yellow return of urine. I then made in the infiltrated the umbilicus made a small incision across the umbilicus and advanced the Veress needle into the peritoneal cavity and infiltrated the peritoneal cavity with CO2 gas. Once pneumoperitoneum was obtained then we placed our camera trocar in the midline we went to the right side and placed lidocaine gel into the incision made a small incision in the abdomen place her right arm trocar that the same thing on the left side with the left arm trocar and a second left arm trocar. We then placed our air seal port for the dental assistant teacher and then we placed a 5 mm port for suction. Once all the ports were placed then the robot was docked and were proceeded with the dissection. I used the right arm scissors monopolar with no no cautery left and bipolar dissected posterior to the bladder identified the vas deferens on the right side dissected down the right vas deferens to the prostate posteriorly. Dissected out the right vas deferens and seminal vesicles in the right side using bipolar only and no monopolar. After dissecting out the vas deferens and seminal vesicles we went to the left side dissected out the left side vas deferens and seminal vesicles. I then identified tenotomies fascia I was able to go above the knee obvious fascia between the obvious fascia and the prostate. I swept the non-BAs fascia off the prostate and created a space below the prostate and the deny obvious fascia. At this point the right and left seminal vesicle and vas deferens were dissected free I then went up and we drop the bladder I used electrocautery for this part of the main incision and the peritoneum into the space of Retzius drop the bladder but the bladder on traction with the fourth arm and then very carefully cleaned off the fatty tissue above the prostate this was sent off as a separate specimen we then incised the endopelvic fascia and the junction between the prostate and the levator muscles and dissected the prostate off the levator muscles and up to the apex dissected through the puboprostatic ligaments on the right and left side and identify the dorsal vein complex stitch was then placed in the dorsal vein complex to secure this the vein venous complex. I then pulled back to identify the junction between the prostate and the bladder and then dissected using electrocautery between the prostate and bladder all the way down until we encountered the catheter catheter but the balloon was taken down the catheter was pulled back and then I dissected dissected between the prostate and the catheter further down until I encountered the seminal vesicles and vasa deferens posteriorly. Then at this point we placed the EMG electrodes into the abdomen we placed electrodes into the levator muscles the right left side of the pelvis we traced the EMG electrode nerve tracing on the right side and are trace in the left side to identify the pudendal branches nerves going to the sphincter and the prostate in the right and left side once these were identified for dissection then I proceeded with dissection of the right side I took the pedicle in the right side we incised the prostatic fascia over the prostate and then sized the fatty tissue of the prostate swept a soft laterally in order to sweep off the neurovascular bundle in the on the right side identified the space between the neurovascular bundle of the prostate on the right lateral side swept back to the prostate took to the prostatic vascular pedicles with clips and then I was able to dissect the neurovascular bundle off the prostate underside all the way to the prostate and very nice meticulous fashion we then went to the left side and again incised the endopelvic fascia over the prostate identified the fatty tissue and the capsule over the prostate this was incised and swept laterally in order to sweep the neurovascular bundle off the lateral side of the prostate and then created the space between the neurovascular bundle and the prostate in the left side dissected back towards the pedicle the pedicles and taken with clips I then dissected inferiorly to sweep the neurovascular bundle off the prostate and fairly all the way up to the apex. We then went back in with the electrodes and checked the right and left side with the EMG stimulation in both right and left side stimulation was intact with good action potential seen on right side pelvic lymph nerves and left-sided pelvic pudendal nerves were then identified and spared using the EMG tracer to identify these. I then proceeded with transecting through the dorsal vein complex we then place an extra stitch of the dorsal vein complex with 3-0 Vicryl in a running fashion to secure the dorsal vein complex there is no bleeding we lower lower the 2 5 and again there was no bleeding we then transected between the prostate apex and the urethra making sure not to violate any prostatic tissue once this is transected and the prostate was removed and put an Endo Catch bag. We then proceeded with a suture splint to the urethra of the urethra was suspended up to the bladder neck with a 30V lock stitch in a running fashion starting at the 6:00 and ending at the 12 o'clock position this was completed over catheter we then put the catheter into the bladder and flushed the catheter was no leakage whatsoever. Then at this point the prostate bag was switched to the camera trocar we undocked the robot we closed the air seal port with a 1012 Jorge start Ramsey stitch we extracted the prostate to the supra umbilical site we undocked the robot we placed the position patient flat on the table and closed all the stent is a particular stitches with with stitches using 4-0 Monocryl dressings and bandages were placed the catheter was flushed it was draining well clear with no blood in the urine. The patient anesthetic was reversed varies but very minimal to no bleeding during the case good nerve sparing bilaterally good good EMG tracing bilaterally all the lymph node tissue that was identified and the case was not enlarged we did not do a lymph node dissection. Patient was clinically stable was extubated taken back to the PACU in good condition. Type of Anesthesia:: General Anesthesiologist: Wesley Chang Specimen's removed: prostate Estimated Blood Loss (mL): 50 - Admit VTE Documentation VTE Present on Admission: No VTE Mechan Device Prophylaxis: SCD's
[2018-09-18] MEDS: 0.9% Normal Saline 1,000 ML 125 ML IV ×2 (11:01→20:34)
[2018-09-18] MEDS: Ciprofloxacin 500 MG Tablet PO ×2 (13:21→22:43)
[2018-09-18] MEDS: Pantoprazole Sodium 40 MG Tablet PO (13:21)
[2018-09-18] MEDS: Docusate Sodium 100 MG Capsule PO ×2 (13:21→22:43)
[2018-09-18] MEDS: Atorvastatin Calcium 40 MG Tablet PO (22:43)
[2018-09-18] MEDS: amLODIPine 10 MG Tablet PO (22:43)
[2018-09-18] MEDS: Acetaminophen 325 MG Tablet PO (22:50)
[2018-09-19 04:30] VITALS: BP 103/43; PULSE 65; RESP 18; TEMP 37.3; O2SAT 92
[2018-09-19] MEDS: 0.9% Normal Saline 1,000 ML 125 ML IV (05:40)
[2018-09-19 06:18] LABS: Anion Gap 8 (5-15); BUN 20 mg/dL (7-18); BUN/Creat Ratio 13.2 RATIO (10-20); Calcium,Total 7.6 mg/dL (8.5-10.1); Chloride 113 mmol/L (98-107); Creatinine, Serum 1.52 mg/dL (0.70-1.30); EST Glomerular Filtration Rate 49 mL/min (>60); Est Glom Filt Rate - Afr Amer 59 mL/min (>60); Estimated Creatinine Clearance 45.87 ml/min; Glucose 94 mg/dL (74-106); Potassium 4.2 mmol/L (3.5-5.1); Sodium Level 144 mmol/L (136-145)
[2018-09-19 06:23] LABS: Hematocrit 36.6 % (40-54); Hemoglobin 12.4 g/dL (13.0-16.5); Mean Corp Hgb Conc 33.9 g/dL (32-36); Mean Corpuscular Hgb 31.6 pg (27.0-32.0); Mean Corpuscular Volume 93.1 fL (80-94); Mean Platelet Vol. 8.8 fl (6.2-12.0); Platelet Count 173 K/mm3 (150-450); RBC Distribution Width CV 12.9 % (11.6-14.6); RBC Distribution Width SD 44.4 fl (35.1-43.9); Red Blood Count 3.93 M/mm3 (4.6-6.2); White Blood Count 7.7 K/mm3 (4.4-11.0)
[2018-09-19 09:28] VITALS: BP 108/51; PULSE 61; RESP 16; TEMP 37.1; O2SAT 94
[2018-09-19] MEDS: Acetaminophen 325 MG Tablet PO (09:52)
[2018-09-19] MEDS: Famotidine 20 MG Tablet PO (09:53)
[2018-09-19] MEDS: Docusate Sodium 100 MG Capsule PO (09:53)
[2018-09-19] MEDS: Ciprofloxacin 500 MG Tablet PO (09:53)
[2018-09-19] MEDS: Losartan Potassium 100 MG Tablet PO (09:54)
[2018-09-19 12:00] VITALS: BP 110/52; PULSE 62; RESP 16; TEMP 37.1; O2SAT 95
--- NOTE | 2018-09-19 14:49 | CASEMGMT ---
As per nursing assessment, pt has LW/POA but is not able to bring in the documents. Son and daughter are POAs. BANDAR Cha
--- NOTE | 2018-09-19 15:37 | NURSING ---
Addendum entered by Riccadro Savage 09/19/18 15:38: Pt and daughter both verbalized understanding of d/c instructions. Original Note: Patient d/c home w/moya to leg bag. Extensive teaching done to him and his daughter regarding care. Also provided Krames education about catheter care.
== END 2018-09-19 15:07 | disposition home or self-care (01) ==
LOC: SDC 05:57 → AC 05:57 → ACINP 10:19 → PCU 12:23
PROVIDERS: Family Provider Internal Medicine; PCP Internal Medicine; Referring Provider Urology; Visit Provider Urology
PROC: 0VT04ZZ Resection of Prostate, Percutaneous Endoscopic Approach (ICD-10-PCS; CPT 55866; principal; 2018-09-18 07:10)
DX: C61 Malignant neoplasm of prostate (principal); K21.9 Gastro-esophageal reflux disease without esophagitis; Z79.899 Other long term (current) drug therapy; Z79.82 Long term (current) use of aspirin; Z79.02 Long term (current) use of antithrombotics/antiplatelets; I25.10 Atherosclerotic heart disease of native coronary artery without angina pectoris; I25.2 Old myocardial infarction; Z95.5 Presence of coronary angioplasty implant and graft; R00.1 Bradycardia, unspecified; I10 Essential (primary) hypertension; E78.5 Hyperlipidemia, unspecified
CPT/HCPCS: 00860; 55866; 36415; 80048; 85027; 86850; 86900; 86920; 86922; 88305; 88309; 93005; J7030; J7120; J2405

== ENCOUNTER → 2018-10-29 | Outpatient (CLI) | payer MEDICARE, SELFPAY ==
[2018-09-18 06:43] VITALS: BMI 24.2
[2018-10-30 10:05] LABS: ALB/GLOB Ratio 1.1 RATIO (0.9-2.4); AST(SGOT) 22 U/L (15-37); Alanine Aminotransfer ALT/SGPT 22 U/L (16-61); Albumin, Serum 3.9 g/dL (3.2-5.0); Alkaline Phosphatase 84 U/L (45-117); Anion Gap 7 (5-15); BUN 29 mg/dL (7-18); BUN/Creat Ratio 19.5 RATIO (10-20); Calcium,Total 8.9 mg/dL (8.5-10.1); Chloride 107 mmol/L (98-107); Creatinine, Serum 1.49 mg/dL (0.70-1.30); EST Glomerular Filtration Rate 50 mL/min (>60); Est Glom Filt Rate - Afr Amer 60 mL/min (>60); Globulin 3.6 g/dL (2.2-4.2); Glucose 66 mg/dL (74-106); Potassium 4.4 mmol/L (3.5-5.1); Protein, Total 7.5 g/dL (6.4-8.2); Sodium Level 140 mmol/L (136-145)
[2018-10-30 10:09] LABS: Vitamin D,25 Hydroxy 23.2 ng/mL (29.95-100.01)
[2018-10-30 10:10] LABS: Absolute Lymphocyte Count 1.23 X10^3/uL (0.83-4.51); Absolute Neutrophil Count 5.6 X10^3/uL (2.0-7.7); Basophil# 0.05 X10^3/uL; Basophil% 0.6 % (0-1); Eosinophil# 0.56 X10^3/uL; Eosinophils% 6.6 % (0-5); Hematocrit 38.1 % (40-54); Hemoglobin 12.7 g/dL (13.0-16.5); Lymphocyte # 1.23 X10^3/ul (4.0); Lymphocyte % 14.4 % (19-41); Mean Corp Hgb Conc 33.3 g/dL (32-36); Mean Corpuscular Hgb 31.8 pg (27.0-32.0); Mean Corpuscular Volume 95.3 fL (80-94); Mean Platelet Vol. 8.9 fl (6.2-12.0); Monocyte# 1.06 X10^3/uL; Monocyte% 12.4 % (0-10); NRBC Flagged by Analyzer 0 % (0-5); Neutrophil # 5.62 X10^3/uL (2.7-7.7); Neutrophil % 65.8 % (47-70); Platelet Count 280 K/mm3 (150-450); RBC Distribution Width CV 12.9 % (11.6-14.6); RBC Distribution Width SD 45.4 fl (35.1-43.9); White Blood Count 8.5 K/mm3 (4.4-11.0)
== END | disposition home or self-care (01) ==
PROVIDERS: Family Provider Internal Medicine; PCP Internal Medicine; Referring Provider Internal Medicine; Visit Provider Internal Medicine
DX: F41.8 Other specified anxiety disorders (principal); N18.2 Chronic kidney disease, stage 2 (mild); E55.9 Vitamin D deficiency, unspecified
CPT/HCPCS: 36415; 80053; 82306; 85025

== ENCOUNTER → 2018-12-19 15:04 | Outpatient (CLI) | payer MEDICARE, SELFPAY ==
[2018-09-18 06:43] VITALS: BMI 24.2
[2018-12-19 16:16] LABS: PSA,Total- Diagnostic 0.02 ng/mL (0.0-4.0)
== END ==
PROVIDERS: Family Provider Internal Medicine; PCP Internal Medicine; Referring Provider Urology; Visit Provider Urology
DX: C61 Malignant neoplasm of prostate (principal)
CPT/HCPCS: 36415; 84153

== ENCOUNTER → 2019-02-10 14:27 | Outpatient (CLI) | payer MEDICARE, SELFPAY ==
[2018-09-18 06:43] VITALS: BMI 24.2
--- NOTE | 2019-02-10 14:40 | RAD_ITS ---
STUDY: X-RAY - LEFT HAND REASON FOR EXAM: Male, 68 years old. Pain, more at the thumb. TECHNIQUE: 3 view(s) of the hand. COMPARISON: None. FINDINGS: Normal radiocarpal articulation. Normal distal radioulnar joint. Normal visualized carpal bones. Normal carpal articulations Normal carpometacarpal articulation of the thumb. Normal second through fifth carpometacarpal joints. Normal metacarpi. Normal metacarpophalangeal joint of the thumb. Normal interphalangeal joint of the thumb. Normal proximal and distal phalanges of the thumb. Normal metacarpophalangeal joints of the second through fifth fingers. Normal proximal and distal interphalangeal joints of the second through fifth fingers. Normal phalanges of the second through fifth fingers. The soft tissue structures are unremarkable. RAD/Hand Min 3 Views IMPRESSION: Normal x-ray examination of the hand. Electronically Signed: Dasha Garza MD at 0:32 EST , Service support ,
== END ==
PROVIDERS: Family Provider Internal Medicine; PCP Internal Medicine; Referring Provider Internal Medicine; Visit Provider Internal Medicine
DX: M79.642 Pain in left hand (principal); R60.0 Localized edema
CPT/HCPCS: 73130

== ENCOUNTER → 2019-03-21 14:27 | Outpatient (CLI) | payer MEDICARE, SELFPAY ==
[2018-09-18 06:43] VITALS: BMI 24.2
[2019-03-21 16:32] LABS: PSA,Total- Diagnostic 0.01 ng/mL (0.0-4.0)
== END ==
PROVIDERS: PCP Internal Medicine; Referring Provider Urology; Visit Provider Urology
DX: C61 Malignant neoplasm of prostate (principal)
CPT/HCPCS: 36415; 84153

== ENCOUNTER 2019-03-29 04:55 | Observation (INO) | payer MEDICARE, SELFPAY ==
[2018-09-18 06:43] VITALS: BMI 24.2
[2019-03-29] VITALS (8 sets, daily range): BP systolic 128–164; BP diastolic 60–80; PULSE 64–95; RESP 11–18; TEMP 36.5–36.7; O2SAT 95–98; BMI 24.5; BMI 24.0; BMI 24.1
--- NOTE | 2019-03-29 05:02 | EKG12_ITS ---
Test Reason : CP Blood Pressure : / mmHG Vent. Rate : 089 BPM Atrial Rate : 089 BPM P-R Int : 192 ms QRS Dur : 104 ms QT Int : 370 ms P-R-T Axes : 027 073 046 degrees QTc Int : 450 ms Normal sinus rhythm Normal ECG Confirmed by SUZETTE MEDINA, JASBIR ([id number]), editor magazine [employer]ED TOLEDO ([id number]) on 04/01/2019 8:28:32 AM Referred By: Abel Cunningham Confirmed By:JASBIR BRADFORD MD
--- NOTE | 2019-03-29 05:15 | RAD_ITS ---
STUDY: X-RAY CHEST REASON FOR EXAM: Male, 68 years old. CHEST PAIN TECHNIQUE: AP portable COMPARISON: 05/15/2016 FINDINGS: The lungs are clear and expanded. There is no demonstrated pleural abnormality. Normal size heart. Normal mediastinum and beto. Normal visualized pulmonary arteries. Normal visualized aortic arch and descending thoracic aorta. Normal visualized thoracic spine. Normal visualized ribs, clavicles, and shoulders. There is no demonstrated abnormality of the visualized soft tissue structures of the upper abdomen. RAD/Chest 1 View (Portable) IMPRESSION: Negative x-ray examination of the chest. Electronically Signed: Minor Rizo, at 5:54 EST Tel , Service support ,
[2019-03-29] MEDS: Aspirin 81 MG TAB.CHEW 324 MG PO (05:20)
[2019-03-29 05:23] LABS: Absolute Lymphocyte Count 1.31 X10^3/uL (0.83-4.51); Absolute Neutrophil Count 5.5 X10^3/uL (2.0-7.7); Basophil# 0.02 X10^3/uL; Basophil% 0.2 % (0-1); Eosinophil# 0.18 X10^3/uL; Eosinophils% 2.2 % (0-5); Hematocrit 39.7 % (40-54); Hemoglobin 13.7 g/dL (13.0-16.5); Lymphocyte # 1.31 X10^3/ul (4.0); Lymphocyte % 16.4 % (19-41); Mean Corp Hgb Conc 34.5 g/dL (32-36); Mean Corpuscular Hgb 31.9 pg (27.0-32.0); Mean Corpuscular Volume 92.3 fL (80-94); Mean Platelet Vol. 8.4 fl (6.2-12.0); Monocyte# 1.03 X10^3/uL; Monocyte% 12.9 % (0-10); NRBC Flagged by Analyzer 0 % (0-5); Neutrophil # 5.45 X10^3/uL (2.7-7.7); Neutrophil % 68.1 % (47-70); Platelet Count 281 K/mm3 (150-450); RBC Distribution Width CV 12.8 % (11.6-14.6); RBC Distribution Width SD 43.4 fl (35.1-43.9)
[2019-03-29 05:46] LABS: Anion Gap 7 (5-15); BUN 26 mg/dL (7-18); Chloride 107 mmol/L (98-107); Creatinine, Serum 1.53 mg/dL (0.70-1.30); EST Glomerular Filtration Rate 48 mL/min (>60); Est Glom Filt Rate - Afr Amer 58 mL/min (>60); Estimated Creatinine Clearance 47.05 ml/min; Glucose 90 mg/dL (74-106); Potassium 4.4 mmol/L (3.5-5.1); Sodium Level 138 mmol/L (136-145)
--- NOTE | 2019-03-29 05:54 | ED.VISSUMM ---
- ER Visit Summary Date of Service: 03/29/19 Chief Complaint: Chest pain History of Present Illness: The patient is a [address] Medina for he and Dr. Victoria Moore. He reports that he has indigestion that is been intermittent for the past 3 days. States initially it was lasting minutes at a time. Is been constant for the past 5 hours. States this is similar to when he had an NV in the past. States is 5-10 worsened to a 10 currently. Is worsened by nothing. It is also relieved by nothing. He is taken antacids without relief. Reports it makes him nauseated and diaphoretic. Is also felt very fatigued. Physical Examination: Vitals: Stable. Afebrile. General: Well-nourished and well-developed. Head: Normocephalic atraumatic. Neck: Supple, no lymphadenopathy. No JVD. Nontender. Cardiovascular: Regular rate and rhythm. No murmurs. Respiratory: No respiratory distress. Clear to auscultation bilaterally. Abdominal: Soft, nontender, nondistended, normal bowel sounds. No guarding, rebound, or peritoneal signs. Back: Nontender. Extremities: Nontender, no edema. Skin: Normal color, no rash. Neurologic: Alert and oriented ?3. Cranial nerves II through XII are intact. Normal strength and sensation. Psych: Normal affect. Test Results: EKG is sinus at [address] changes. Troponin is negative. Chem-7 shows a BUN 26 and creatinine 1.53. CBC shows a hematocrit of 39.7, lymphocytes of 16, monocytes of 13. Chest x-ray shows chronic changes. Emergency Department Course and Treatment: Patient was given aspirin. Is resting comfortably. Is been pain-free while here. Treatment Plan: Patient's heart score is 5. His LINA score is 4. His pain is atypical, but this is similar to his prior pain that required a stent. He was discussed with Dr. Crews. He will be admitted for further evaluation and treatment. Disposition: Admitted in stable condition. Impression: 1 1. Chest pain. 2. Heart score of 5. 3. LINA score of 4. This note was generated with [employer] software. It may contain incorrect words, spelling, and punctuation that were not noted in review of the chart prior to signing ED Disposition - Plan for ED Patient: Referrals: Abel Cunningham [Primary Care Provider] -
--- NOTE | 2019-03-29 06:13 | PCM.HP.STD ---
Problem List (1) Stage III chronic kidney disease Status: Chronic (2) Prostate cancer Status: Chronic (3) History of non-ST elevation myocardial infarction (NSTEMI) Status: Chronic (4) Atherosclerosis of coronary artery of [place] heart without angina pectoris Status: Chronic Comment: PCI-KENA-RCA 05/22/15 (5) History of coronary artery stent placement Status: Chronic Comment: PCI-KENA-RCA 05/22/15 (6) Essential (primary) hypertension Status: Chronic (7) Hyperlipidemia Status: Chronic History of Present Illness Date of Admission: 03/29/19 Chief Complaint: Chest pain. The patient is a 68 year old M patient with past medical history as mentioned above presented to the emergency room because of chest pain. He woke up this morning around 3 AM from sleep because of chest pain, described as indigestion, retrosternal and epigastric in location, not radiating, 3-4 out of 10 in severity, associated with diaphoresis and without aggravating or relieving factors. He mentioned that he has been not feeling well over the last week, has been having intermittent indigestion which he described as similar to the chest pain that he had 4 years ago when he had heart attack. He denied abdominal pain, nausea or vomiting. In the emergency department, initial blood pressure was elevated but later improved, other vital signs were stable. Routine blood work was remarkable for BUN of 26 and creatinine of 1.53 and those are chronic. EKG revealed normal sinus rhythm, normal OH interval, normal QRS, normal QTC, no acute segment changes. Troponin was negative. Chest x-ray showed no acute findings. He is being admitted for atypical chest pain for evaluation. Past Medical History Past Medical History (Chronic Problems): Chronic Problems (Last Updated 03/29/19 @ 05:57 by Lamin Crews MD) Stage III chronic kidney disease (Chronic) Prostate cancer (Chronic) Nonrheumatic mitral (valve) insufficiency (Chronic) History of non-ST elevation myocardial infarction (NSTEMI) (Chronic 05/22/15) Atherosclerosis of coronary artery of [place] heart without angina pectoris (Chronic) PCI-KENA-RCA 05/22/15 History of coronary artery stent placement (Chronic 05/22/15) PCI-KENA-RCA 05/22/15 Essential (primary) hypertension (Chronic) Hyperlipidemia (Chronic) Medical History: Medical History (Last Updated 03/29/19 @ 05:57 by Lamin Crews MD) Nonrheumatic mitral (valve) insufficiency (Chronic) I34.0 History of non-ST elevation myocardial infarction (NSTEMI) (Chronic) Onset Date: 05/22/15 I25.2 Atherosclerosis of coronary artery of [place] heart without angina pectoris (Chronic) I25.10 PCI-KENA-RCA 05/22/15 Essential (primary) hypertension (Chronic) I10 Hyperlipidemia (Chronic) E78.5 GERD (gastroesophageal reflux disease) K21.9 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 Calculus of left kidney N20.0 Allergies No Known Allergies Allergy (Verified 03/29/19 04:56) Home Medications: Ambulatory Orders Medication Instructions Recorded atorvastatin 40 mg tablet 40 mg PO QHS #90 tab 05/22/18 Amlodipine [Norvasc] 1 tab PO QHS 09/18/18 Aspirin [Aspirin, Baby] 81 mg PO DAILY@0800 09/18/18 Clopidogrel Bisulfate [Clopidogrel] 1 tab PO DAILY 09/18/18 Losartan Potassium 1 tab PO DAILY 09/18/18 Ranitidine HCl 1 tab PO BID 09/18/18 Surgical History: Surgical History (Last Updated 03/29/19 @ 05:57 by Lamin Crews MD) History of coronary artery stent placement (Chronic) Onset Date: 05/22/15 Z95.5 PCI-KENA-RCA 05/22/15 H/O shoulder surgery Z98.890 History of extraction of renal calculus Z98.890, Z87.448 may 2017 Surgical History: cataract - Prostatectomy for prostate cancer., rotator cuff repair - Left shoulder, kidney stones twice w/ lithrotripsy, colonoscopy., - Psychiatric History: No pertinent psych hx Lives: Spouse/ Significant Other Smoking Status: Never smoker Alcohol: None Drugs: None - *Family History Maternal Family History: Family History (Last Reviewed 03/29/19 @ 06:17 by Lamin Crews MD) Father Hypertension Review of Systems Constitutional: Denies: Anorexia, Chills, Fever, Weakness Eyes: Denies: Blurred vision, Double vision, Drainage, Redness HEENT: Denies: Difficulty Hearing, Ear Pain, Eye Pain, Nasal Congestion, Sore Throat Cardiovascular: Reports: Chest Pain, Chest Pressure. Denies: Heaviness, Light Headedness, Palpitations, Paroxysmal Noc. Dyspnea, Syncope Respiratory: Denies: Cough, Pleuritic Pain, Shortness of Breath, Sputum production, Wheezing Gastrointestinal: Reports: Nausea. Denies: Abdominal Pain, Constipation, Diarrhea, Vomiting Genitourinary: Denies: Dysuria, Frequency, Hematuria Musculoskeletal: Denies: Arm Pain, Back Pain, Foot Pain Skin: Denies: Dryness, Rash Neurological: Denies: Balance problems, Double vision, Slurred speech, Confusion, Headaches, Incoordination, Numbness Psychiatric: Denies: Anxiety, Depression Endocrine: Denies: Change in Body Habitus, Polydipsia, Polyuria VTE Information - Inpt Only VTE Present on Admission: No VTE Mechan Device Prophylaxis: None VTE Pharm Prophylaxis ordered?: Yes - Physical Exam Vitals/I&O's: Vital Signs Temp Pulse Resp BP Pulse Ox 98.0 F 76 11 L 129/74 H 97 03/29/19 04:57 03/29/19 06:07 03/29/19 06:07 03/29/19 06:07 03/29/19 06:07 Oxygen Delivery Method Room Air Weight: 170 lb 13.732 oz Body Mass Index (BMI) 24.5 General: Alert, Oriented x3, Cooperative, No apparent distress HEENT: Atraumatic, PERRLA, EOMI, Normocephalic Oral: Moist Mucosa, No Gingival or Mucosal Lesions/ Ulcerations Neck: Supple, No JVD, Negative Carotid Bruits Lungs: Clear to auscultation, Normal air movement, No rhonchi, No wheeze, No rales Cardiovascular: Regular rate, Regular Rhythm, Normal S1, Normal S2, No murmurs, PMI Normal Abdomen: Bowel Sounds Present, Soft, Non Tender, Non-Distended, No Hepato-splenomegaly Extremities: No clubbing, No cyanosis, No edema Skin: No rashes, No breakdown Lymphatic: No Cervical, Supraclavicular, or Inguinal Adenopathy Neurological: Cranial nerves II-XII grossly intact, Motor Exam 5/5 strength throughout Psych/Mental Status: Normal Affect, Appropriate, Alert and oriented to time, place, person, mood and affect Laboratory Results 03/29/19 05:15: WBC 8.0, RBC 4.30 L, Hgb 13.7, Hct 39.7 L, MCV 92.3, MCH 31.9, MCHC 34.5, RDW Std Deviation 43.4, RDW Coeff of Gaby 12.8, Plt Count 281, MPV 8.4, Immature Gran % (Auto) 0.200, Neut % (Auto) 68.1, Lymph % (Auto) 16.4 L, [place] % (Auto) 12.9 H, Eos % (Auto) 2.2, Baso % (Auto) 0.2, Absolute Neuts (auto) 5.5, Absolute Lymphs (auto) 1.31, Nucleated RBC % 0 03/29/19 05:15: Sodium 138, Potassium 4.4, Chloride 107, Carbon Dioxide 24.0, Anion Gap 7, BUN 26 H, Creatinine 1.53 H, Estim Creat Clear Calc 47.05, Est GFR (MDRD) Af Amer 58 L, Est GFR (MDRD) Non-Af 48 L, BUN/Creatinine Ratio 17.0, Glucose 90, Calcium 9.0, Troponin I < 0.015 Clinical Impression(s) from Imaging Studies Chest X-Ray 03/29/19 05:15 IMPRESSION: Negative x-ray examination of the chest. Electronically Signed: Minor Darrius, at 5:54 EST Tel , Service support , Assessment/Plan This is a 68-year-old male patient presented to the emergency room because of chest pain described as indigestion and he is being admitted for atypical chest pain for evaluation. #1 atypical chest pain: Described as indigestion, similar to the pain that he had 4 years ago when he was found to have heart attack and had stents. His HEART score is 5, moderate risk. KG showed no acute ischemic changes. Troponin was negative. Chest x-ray was unremarkable. This pain could be due to CAD versus GERD. Plan: Admit to PCU for observation, cardiac monitoring, serial cardiac enzymes, nitroglycerin PRN, IV fluids, IV antiemetics PRN, nuclear stress test this morning if cardiac enzymes are negative, continue aspirin, statins, Plavix, losartan, will check lipid profile, serum lipase, trial of Protonix and Mylanta as needed. #2 CAD status post stents: Plan as above, continue aspirin, Plavix, statins and statin. #3 stage III chronic kidney disease: Baseline creatinine has been around 1.3 to 1.6 mg/dL. Admission creatinine is 1.53, stable at baseline. #4 hypertension: Initial blood pressure was elevated but improved. Continue Norvasc and losartan. #5 hyperlipidemia: Continue statins. #6 history of prostate cancer: Status post prostatectomy, stable in remission. #7 DVT prophylaxis, subcu heparin. This note was generated with [employer] dictation software. It may contain incorrect words, spelling, and punctuation that were not noted in checking the note before signing. Code Visit OBSV E&M: 61138 Initial observation care L3
--- NOTE | 2019-03-29 06:40 | ED.RN ---
ATTEMPTED TO GIVE REPORT TO ICU NURSE AFTER 25 MINUTES OF WAITING, AND THEY SAID THEY WOULD CALL ME BACK.
--- NOTE | 2019-03-29 07:03 | EKG12_ITS ---
Test Reason : CP Blood Pressure : / mmHG Vent. Rate : 066 BPM Atrial Rate : 066 BPM P-R Int : 182 ms QRS Dur : 104 ms QT Int : 392 ms P-R-T Axes : 045 085 038 degrees QTc Int : 410 ms Normal sinus rhythm Normal ECG No previous ECGs available Confirmed by SUZETTE MEDINA, JASBIR ([id number]), film editor supervisor TOÑA SERRANO ([id number]) on 04/01/2019 11:01:39 AM Referred By: Abel Cunningham Confirmed By:JASBIR BRADOFRD MD
--- NOTE | 2019-03-29 07:08 | PN_ITS ---
Subjective: Patient denies any acute events overnight per self and per nursing report since admission and notes that prior chest discomfort which had been retrosternal and epigastric in location with burping has not recurred but he does note he has had some bilateral lower extremity muscle cramping. Discussed patient activity and he is extremely active with questionable appropriate matching oral hydration intake. Electrolytes were obtained and was noted to have low phosphorus and was amenable to supplementation. Cardiac stress testing was performed and unremarkable with normal EKGs and serial cardiac enzymes remained unremarkable. Discussed current presentation at length with decision for discharge to home given improvement with follow-up with PCP and cardiology to which him and his daughter were amenable. Patient denies fevers, chills, nausea, emesis, abdominal pain, recurrent or worsened chest pain or dyspnea. Objective: Physical Examination: General: awake, alert, oriented x 3 and cooperative, seated upright in the PCU status ICU bed, no acute distress, no current chest pain. Skin: normal color, turgor, no icterus, cyanosis. HEENT: AT/NC, EOMI, PERRLA, MMM. Lungs: CTA bilaterally, moderate effort, mild decrease BL bases, no rales, ronchi or wheezing. Heart: Regular rate and rhythm; no gallop, rub audible. Abdomen: soft, NTTP, ND, normal BS. Extremities: no cyanosis, clubbing, or edema. Neurological: patient awake, alert, oriented x 3; cognitive function intact; pupils equally reactive to light and accomodation; cranial nerves II-XII grossly normal, moving all 4 extremities, no focal deficits, strength proved, mildly global decrease given recent complaints but nearly preserved now. Psychiatric: affect appears mildly fatigued, otherwise normal, no acute evidence of depressive or anxiety feelings. Vitals/I&O's: Vital Signs Temp Pulse Resp BP Pulse Ox 98.0 F 76 11 L 129/74 H 97 03/29/19 04:57 03/29/19 06:07 03/29/19 06:07 03/29/19 06:07 03/29/19 06:07 Oxygen Delivery Method Room Air Weight: 170 lb 13.732 oz Body Mass Index (BMI) 24.5 Laboratory Results 03/29/19 05:15: WBC 8.0, RBC 4.30 L, Hgb 13.7, Hct 39.7 L, MCV 92.3, MCH 31.9, MCHC 34.5, RDW Std Deviation 43.4, RDW Coeff of Gaby 12.8, Plt Count 281, MPV 8.4 , Immature Gran % (Auto) 0.200, Neut % (Auto) 68.1, Lymph % (Auto) 16.4 L, [place] % (Auto) 12.9 H, Eos % (Auto) 2.2, Baso % (Auto) 0.2, Absolute Neuts (auto) 5.5, Absolute Lymphs (auto) 1.31, Nucleated RBC % 0 03/29/19 05:15: Sodium 138, Potassium 4.4, Chloride 107, Carbon Dioxide 24.0, Anion Gap 7, BUN 26 H, Creatinine 1.53 H, Estim Creat Clear Calc 47.05, Est GFR (MDRD) Af Amer 58 L, Est GFR (MDRD) Non-Af 48 L, BUN/Creatinine Ratio 17.0, Glucose 90, Calcium 9.0, Troponin I < 0.015 STROKE Vital Signs/Narrative: Vital Signs Temp Pulse Resp BP Pulse Ox 03/29/19 06:07 76 11 L 129/74 H 97 03/29/19 05:05 95 03/29/19 04:57 98.0 F 95 18 164/74 H 97 Medical Necessity - Tobacco Use Smoking Status: Never smoker Assessment/Plan The patient is a 68 y/o M w/ PMHx: CAD s/p PCI KENA RCA 2016, HTN, HLD, Hx NSTEMI, Hx prostate CA, CKD stage III who presents to the [facility] ED on 03/29/19 with history of onset retrosternal epigastric chest discomfort awakening him at approximately 3 AM with concurrent indigestion, burping, rated 3-10 in severity with mild diaphoresis prompting eventual ED presentation. 1. Atypical chest pain, suspected noncardiac, possibly reflux related: EKG in ED with no acute evidence of ischemia with repeat similar, CXR w/ no acute cardiopulmonary findings, initial trop normal x1. Patient admitted to the ICU as PCU status, place on a monitored bed to assure no acute myocardial infarction with serial cardiac enzymes and EKGs which remained unremarkable. Patient underwent 03/29/2019 a.m. cardiac nuclear stress testing which demonstrated no evidence of reproducible ischemia. Magnesium level was obtained and normal. Phosphorus level was obtained and supplementation was administered. CK level also obtained given patient's history of muscle cramping and was noted to be normal. Patient given education on appropriate oral hydration given his level of activity. Recommended that patient temporarily hold his statin therapy and monitor for improvement of muscle cramping with plan follow-up with cardiology office [facility] [facility] in 1 to 2 weeks with discussions at that time if appears to resolve for alterations to statin therapy of potentially the etiology if no improvement with titration concurrently as noted. ASA, NG, morphine. 2. Hypophosphatemia: Phosphorus level 1.7, level obtained secondary to complaints of muscle cramping, supplementation administered. 3. CAD: Status post PCI as noted, continued on aspirin, Plavix, losartan, not on beta-john therapy. 4. Hypertension: Continue home regimen including losartan, Norvasc, PRN hydralazine. Initially elevated upon presentation, improved during admission, no medication changes made to hypertensive regimen. Close follow-up requested at discharge with patient cardiology [facility]. 5. Hyperlipidemia: Home statin with recommendation for hold upon discharge given patient cramping and muscle complaints, phosphorus supplemented otherwise potassium and magnesium normal level, encouraged appropriate hydration given activity level with follow-up closely with [facility] [facility] cardiology office within 1 to 2 weeks with alterations to statin therapy if felt needed. 6. Chronic Kidney Disease Stage III: Admission BUN/Cr 26/1.53, baseline renal function 1.4-1.6 appears baseline, similar, stable. 7. History of prostate cancer: Noted to be in remission, encourage continued follow-up outpatient. 8. DVT prophylaxis: SCDs, heparin.
[2019-03-29 08:34] LABS: Magnesium 2.2 mg/dL (1.6-2.6); Phosphorus 1.7 mg/dL (2.5-4.9)
[2019-03-29 08:41] LABS: AST(SGOT) 28 U/L (15-37); Alanine Aminotransfer ALT/SGPT 34 U/L (16-61); Albumin, Serum 3.6 g/dL (3.2-5.0); Alkaline Phosphatase 84 U/L (45-117); Bilirubin, Direct 0.22 mg/dL (0.00-0.30); Globulin 3.6 g/dL (2.2-4.2); Lipase 127 U/L (73-393); Protein, Total 7.2 g/dL (6.4-8.2)
[2019-03-29 10:30] LABS: CPK Total, Creatine Kinase 78 U/L (39-308)
[2019-03-29] MEDS: Famotidine 20 MG Tablet PO (12:18)
[2019-03-29] MEDS: Pantoprazole Sodium 40 MG Tablet PO (12:18)
[2019-03-29] MEDS: Losartan Potassium 100 MG Tablet PO (12:18)
[2019-03-29] MEDS: Clopidogrel Bisulfate 75 MG Tablet PO (12:18)
--- NOTE | 2019-03-29 12:42 | STRESSREP ---
Stress Test Report Date: 03-29-2019 Procedure: Pharmacologic stress nuclear imaging study Indications: Chest pain Consent: Per the patient Procedure: The patient underwent pharmacologic (Regadenoson) evaluation with a peak heart rate of 85 beats per minute (56 %predicted maximal heart rate) and a peak blood pressure of 124/62 mmHg. The baseline ECG demonstrated sinus rhythm. The peak pharmacologic ECG demonstrated no obvious ECG changes. There were no cardiac dysrhythmias pretest, during pharmacologic infusion, or recovery. There was no complaint of chest discomfort during pharmacologic infusion or recovery. The examination was discontinued secondary to completion of protocol. Impression: 1. Pharmacologic (Regadenoson) evaluation 2. Peak pharmacologic ECG with with no obvious ECG changes. 3. There were no cardiac dysrhythmias pretest, during pharmacologic infusion, or recovery. 4. Nuclear images pending Myocardial perfusion imaging study: Technique: The patient was injected with 12.0 millicuries of technetium 99m Cardiolite and subsequently rest SPECT Cardiolite nuclear imaging was obtained in the horizontal long, vertical long, and short axis views. The patient underwent pharmacologic (Regadenoson) evaluation with a peak heart rate of 85 beats per minute (56 % percent predicted maximal heart rate) and a peak blood pressure of 124/62 mmHg. The patient was injected with 36.0 millicuries of technetium 99m Cardiolite and subsequently stress SPECT Cardiolite nuclear imaging was obtained in the horizontal long, vertical long, and short axis views. A gated Cardiolite study at peak stress was obtained. Interpretation: Rest and stress SPECT Cardiolite nuclear imaging status post realignment, normalization, and attenuation correction demonstrate relative uniform tracer uptake and myocardial perfusion appearing within normal limits. There is end systolic thickening and brightening. The gated Cardiolite study demonstrates myocardial thickening and inward wall motion. The reported LVEF is 67 %. Impression: 1. Rest and stress SPECT Cardiolite nuclear imaging demonstrate relative uniform tracer uptake and myocardial perfusion appearing within normal limits. 2. The gated Cardiolite study reports an LVEF of 67 %. This note was generated with [employer] software. It may contain incorrect words, spelling, and punctuation that were not noted in checking the note before signing.
--- NOTE | 2019-03-29 12:59 | PCM.DC ---
- Discharge Diagnoses Current Active Problems: Current Active and Chronic Problems (Last Updated 03/29/19 @ 05:57 by Lamin Crews MD) #1 Atypical chest pain, suspected non-cardiac with normal stress testing, normal cardiac enzymes and EKGs #2 CAD status post stents #3 Stage III chronic kidney disease #4 Hypertension #5 Hyperlipidemia #6 History of prostate cancer #7 Hypopotassium You will use the following diet at home:: Cardiac Your food should be the consistency of: Regular Your liquids should be the consistency of: Regular/Thin Discharge Activity: - - Please continue your prior level of activity; however, we strongly recommend you maintain appropriate hydration to avoid muscle cramping given your heightened level of exercise. May resume sexual activity in: No Restrictions Call your doctor if you observe: Fever of 101 or Higher, Inability to urinate, Inability to have a bowel movement, Shortness of breath, Dizziness, Fainting spells, Chest pain, Uncontrolled pain Instructions: CHEST PAIN, NonCardiac, CHEST PAIN, Uncertain Cause, Dehydration Additional Instructions: The chest pain you experienced is not from your heart. The stress test is negative and your heart squeezed normally. The alarm security or surveillance monitor you wore showed no problem with the rhythm of your heart. Additionally, the cardiac enzyme series performed remained normal. Sometimes chest pain can come from a problem with the muscles or skeleton and/or associated with straining or doing some strenuous activity you do not normally perform. Generally Aleve or Motrin will help allieviate this discomfort if these medications are appropriate for you to take. Chest pain can also be associated with anxiety and with this you frequently have racing heart, trouble sleeping and irritability. It can also come from gastroesophageal reflux disease or heartburn. People who smoke experience increased heartburn because nicotine decreases the pressure in the lower esophageal sphincter and causes reflux. This type of discomfort is well treated with drinking a large glass of cold water which strips the acid out of the esophagus or taking Mylanta, Maalox or Pepto-Bismol. Other foods to avoid if you have reflux are chocolate, peppermint and calcium containing products such as Tums. During the admission also your phosporous level was decreased and IV supplementation was administered. Please assure you maintain appropriate hydration given your elevated level of activity routinely. Allergies/Adverse Reactions: Allergies No Known Allergies Allergy (Verified 02/01/20 04:56) Medications to take at Discharge atorvastatin 40 mg tablet 40 mg PO QHS #90 tab 05/22/18 Amlodipine [Norvasc] 1 tab PO QHS 09/18/18 Aspirin [Aspirin, Baby] 81 mg PO DAILY@0800 09/18/18 Clopidogrel Bisulfate [Clopidogrel] 1 tab PO DAILY 09/18/18 Losartan Potassium 1 tab PO DAILY 09/18/18 Ranitidine HCl 1 tab PO BID 09/18/18 Primary Care Physician: Abel Cunningham [Primary Care Provider] - Please follow up with your Primary Care Physician in: Follow-up within 3-5 days to review admission. Test Results: Test results from this visit will be discussed in further detail at your follow-up appointment, if applicable. Please Follow Up With: Himanshu Koch MD When: Please follow-up with Dr. Koch office, may see Cardio [facility]ESTHETIC ASSISTANT, 1-2 weeks. Proposed Discharge Date: 03/29/19
--- NOTE | 2019-03-29 13:06 | DS.PCM_ITS ---
Discharge Date and Diagnosis Date of Admission: 03/29/19 Date of Discharge: 03/29/19 - Primary Discharge Diagnosis 1. Atypical chest pain, suspected noncardiac, possibly reflux related 2. Hypophosphatemia 3. CAD 4. Hypertension 5. Hyperlipidemia 6. Chronic Kidney Disease Stage III 7. History of prostate cancer 8. Muscle cramping, unclear specific etiology, possible dehydration, electrolyte disturbance as noted versus possible statin side effect - Secondary Discharge Diagnosis Chronic Problems (Last Updated 03/29/19 @ 05:57 by Lamin Crews MD) Stage III chronic kidney disease (Chronic) Prostate cancer (Chronic) Nonrheumatic mitral (valve) insufficiency (Chronic) History of non-ST elevation myocardial infarction (NSTEMI) (Chronic 05/22/15) Atherosclerosis of coronary artery of [place] heart without angina pectoris (Chronic) PCI-KENA-RCA 05/22/15 History of coronary artery stent placement (Chronic 05/22/15) PCI-KENA-RCA 05/22/15 Essential (primary) hypertension (Chronic) Hyperlipidemia (Chronic) Hospital Course and Treatment Imaging Results: 03/29/19 05:15 Chest 1 View (Portable) [RAD] Stat 03/29/19 07:12 Nuclear Stress Test - Chemical [NM] Urgent Operations: None Procedures: EKG, Stress test Summary of Care Provided: The patient is a 68 y/o M w/ PMHx: CAD s/p PCI KENA RCA 2016, HTN, HLD, Hx NSTEMI, Hx prostate CA, CKD stage III who presented to the [facility] ED on 03/29/19 with history of onset retrosternal epigastric chest discomfort awakening him at approximately 3 AM with concurrent indigestion, burping, rated 3-10 in severity with mild diaphoresis prompting eventual ED presentation. EKG in ED with no acute evidence of ischemia with repeat similar, CXR w/ no acute cardiopulmonary findings, initial trop normal x1. Patient admitted to the ICU as PCU status, place on a monitored bed to assure no acute myocardial infarction with serial cardiac enzymes and EKGs which remained unremarkable. Patient underwent 03/29/2019 a.m. cardiac nuclear stress testing which demonstrated no evidence of reproducible ischemia. Magnesium level was obtained and normal. Phosphorus level was obtained and supplementation was administered. CK level also obtained given patient's history of muscle cramping and was noted to be normal. Patient given education on appropriate oral hydration given his level of activity. Recommended that patient temporarily hold his statin therapy and monitor for improvement of muscle cramping with plan follow-up with cardiology office [facility] in 1 to 2 weeks with discussions at that time if appears to resolve for alterations to statin therapy of potentially the etiology if no improvement with titration concurrently as noted. ASA, NG, morphine. - Physical Exam Vitals/I&O's: Vital Signs Temp Pulse Resp BP Pulse Ox 97.7 F L 69 17 128/60 H 98 03/29/19 12:00 03/29/19 12:00 03/29/19 12:00 03/29/19 12:03/29/19 12:00 Oxygen Delivery Method Room Air Weight: 167 lb 12.348 oz Body Mass Index (BMI) 24.0 Laboratory Results 03/29/19 05:15: WBC 8.0, RBC 4.30 L, Hgb 13.7, Hct 39.7 L, MCV 92.3, MCH 31.9, MCHC 34.5, RDW Std Deviation 43.4, RDW Coeff of Gaby 12.8, Plt Count 281, MPV 8.4, Immature Gran % (Auto) 0.200, Neut % (Auto) 68.1, Lymph % (Auto) 16.4 L, [place] % (Auto) 12.9 H, Eos % (Auto) 2.2, Baso % (Auto) 0.2, Absolute Neuts (auto) 5.5, Absolute Lymphs (auto) 1.31, Nucleated RBC % 0 03/29/19 05:15: Sodium 138, Potassium 4.4, Chloride 107, Carbon Dioxide 24.0, Anion Gap 7, BUN 26 H, Creatinine 1.53 H, Estim Creat Clear Calc 47.05, Est GFR (MDRD) Af Amer 58 L, Est GFR (MDRD) Non-Af 48 L, BUN/Creatinine Ratio 17.0, Glucose 90, Calcium 9.0, Troponin I < 0.015 03/29/19 08:00: Total Bilirubin 0.70, Direct Bilirubin 0.22, AST 28, ALT 34, Alkaline Phosphatase 84, Troponin I < 0.015, Total Protein 7.2, Albumin 3.6, Globulin 3.6, Lipase 127 03/29/19 08:00: Phosphorus 1.7 L, Magnesium 2.2 03/29/19 08:00: Total Creatine Kinase 78 03/29/19 11:10: Troponin I < 0.015 Current Medications Acetaminophen (Tylenol) 650 mg PO Q6H PRN PRN PRN Reason: Pain Score 1-3/Temp > 100.7 F Al Hydroxide/Mg Hydroxide (Mylanta Ii) 30 ml PO Q6H PRN PRN PRN Reason: Heartburn, indigestion. Amlodipine Besylate (Norvasc) 10 mg PO QHS [facility] Aspirin (Aspirin, Baby) 81 mg PO DAILY@0800 [facility] Atorvastatin Calcium (Lipitor) 40 mg PO QHS [facility] Clopidogrel Bisulfate (Plavix) 75 mg PO DAILY [facility] Last Admin: 03/29/19 12:18 Dose: 75 mg Documented by: Famotidine (Pepcid) 20 mg PO DAILY [facility] Last Admin: 03/29/19 12:18 Dose: 20 mg Documented by: Heparin Sodium (Porcine) (Heparin Na) 5,000 unit SC Q8 [facility] Sodium Chloride () 250 mls @ 15 mls/hr IV .[id number] PRN PRN Reason: Saline Flush Sodium Chloride () 250 mls @ 15 mls/hr IV .[id number] PRN PRN Reason: Additional IVPB Infusion Sodium Phosphate 21 mm/ Sodium (Chloride) 257 mls @ 84 mls/hr IV X1 ONE Stop: 03/29/19 13:48 Last Admin: 03/29/19 12:18 Dose: 84 mls/hr Documented by: Losartan Potassium (Cozaar) 100 mg PO DAILY [facility] Last Admin: 03/29/19 12:18 Dose: 100 mg Documented by: Nitroglycerin (Nitrostat) 0.4 mg SUBLINGUAL Q5M PRN PRN Reason: CARDIAC/CHEST PAIN Ondansetron HCl (Zofran) 4 mg IV Q8H PRN PRN PRN Reason: NAUSEA/VOMITING Pantoprazole Sodium (Protonix) 40 mg PO DAILY [facility] Last Admin: 03/29/19 12:18 Dose: 40 mg Documented by: Sodium Chloride () 10 - 40 ml IV UD PRN PRN Reason: SALINE FLUSH Discharge Activity: - - Please continue your prior level of activity; however, we strongly recommend you maintain appropriate hydration to avoid muscle cramping given your heightened level of exercise. May resume sexual activity in: No Restrictions Call your doctor if you observe: Fever of 101 or Higher, Inability to urinate, Inability to have a bowel movement, Shortness of breath, Dizziness, Fainting spells, Chest pain, Uncontrolled pain Home Medications: Medications to take at Discharge atorvastatin 40 mg tablet 40 mg PO QHS #90 tab 05/22/18 Amlodipine [Norvasc] 1 tab PO QHS 09/18/18 Aspirin [Aspirin, Baby] 81 mg PO DAILY@0800 09/18/18 Clopidogrel Bisulfate [Clopidogrel] 1 tab PO DAILY 09/18/18 Losartan Potassium 1 tab PO DAILY 09/18/18 Ranitidine HCl 1 tab PO BID 09/18/18 Primary Care Physician: Abel Cunningham [Primary Care Provider] - Please follow up with your Primary Care Physician in: Follow-up within 3-5 days to review admission. Please Follow Up With: Himanshu Koch MD When: Please follow-up with Dr. Koch office, may see Cardio [facility], 1-2 weeks. Patient Instructions: Dehydration, CHEST PAIN, NonCardiac, CHEST PAIN, Uncertain Cause Disposition: Home Minutes spent on discharge:: 35 Patient Condition:: Fair Medical Necessity - Tobacco Use Smoking Status: Never smoker Meaningful Use Info Meaningful Use Diagnoses (Choose all that apply): None applicable Code Visit OBSV E&M: 97213 Observation care discharge
== END 2019-03-29 15:50 | disposition home or self-care (01) ==
LOC: ED 05:30 → ICU 06:13
PROVIDERS: Admitting Provider Hospitalist; Emergency Provider Emergency Medicine; PCP Internal Medicine; Referring Provider Internal Medicine; Visit Provider Family Medicine
DX: R07.89 Other chest pain (principal); I25.10 Atherosclerotic heart disease of native coronary artery without angina pectoris; E78.5 Hyperlipidemia, unspecified; I25.2 Old myocardial infarction; E83.39 Other disorders of phosphorus metabolism; I12.9 Hypertensive chronic kidney disease with stage 1 through stage 4 chronic kidney disease, or unspecified chronic kidney disease; N18.3 Chronic kidney disease, stage 3 (moderate); Z85.46 Personal history of malignant neoplasm of prostate; Z79.899 Other long term (current) drug therapy; Z79.82 Long term (current) use of aspirin; Z79.02 Long term (current) use of antithrombotics/antiplatelets
CPT/HCPCS: 71045; 78452; 80048; 80076; 82550; 83690; 83735; 84100; 84484; 85025; 93005; 93017; 96360; 96361; 99218; 99285; A9500; J7030; J7050; A4216; G0378; J2785

== ENCOUNTER → 2019-04-01 09:42 | Outpatient (CLI) | payer MEDICARE, SELFPAY ==
[2019-03-29 06:47] VITALS: BMI 24.0
[2019-04-01 10:48] LABS: Absolute Lymphocyte Count 1.09 X10^3/uL (0.83-4.51); Absolute Neutrophil Count 3.9 X10^3/uL (2.0-7.7); Basophil# 0.02 X10^3/uL; Basophil% 0.3 % (0-1); Eosinophil# 0.17 X10^3/uL; Eosinophils% 2.9 % (0-5); Hematocrit 35.6 % (40-54); Lymphocyte # 1.09 X10^3/ul (4.0); Lymphocyte % 18.9 % (19-41); Mean Corp Hgb Conc 33.7 g/dL (32-36); Mean Corpuscular Hgb 31.3 pg (27.0-32.0); Mean Platelet Vol. 8.5 fl (6.2-12.0); Monocyte# 0.55 X10^3/uL; Monocyte% 9.5 % (0-10); NRBC Flagged by Analyzer 0 % (0-5); Neutrophil # 3.93 X10^3/uL (2.7-7.7); Neutrophil % 68.1 % (47-70); Platelet Count 300 K/mm3 (150-450); RBC Distribution Width CV 12.9 % (11.6-14.6); RBC Distribution Width SD 43.7 fl (35.1-43.9); Red Blood Count 3.83 M/mm3 (4.6-6.2); White Blood Count 5.8 K/mm3 (4.4-11.0)
[2019-04-01 11:01] LABS: Erythrocyte Sedimentation Rate 6 mm/hr (0-20)
[2019-04-01 11:19] LABS: PTHIN 66.2 pg/mL (18.4-80.1); Vitamin D,25 Hydroxy 60.4 ng/mL (29.95-100.01)
[2019-04-01 11:34] LABS: ALB/GLOB Ratio 1.1 RATIO (0.9-2.4); AST(SGOT) 20 U/L (15-37); Alanine Aminotransfer ALT/SGPT 29 U/L (16-61); Albumin, Serum 3.9 g/dL (3.2-5.0); Alkaline Phosphatase 79 U/L (45-117); Anion Gap 6 (5-15); BUN 26 mg/dL (7-18); BUN/Creat Ratio 18.1 RATIO (10-20); Chloride 111 mmol/L (98-107); Creatinine, Serum 1.44 mg/dL (0.70-1.30); EST Glomerular Filtration Rate 52 mL/min (>60); Est Glom Filt Rate - Afr Amer 62 mL/min (>60); Globulin 3.5 g/dL (2.2-4.2); Glucose 86 mg/dL (74-106); Magnesium 1.9 mg/dL (1.6-2.6); Phosphorus 2.1 mg/dL (2.5-4.9); Potassium 4.3 mmol/L (3.5-5.1); Protein, Total 7.4 g/dL (6.4-8.2); Sodium Level 140 mmol/L (136-145); T4 Free Direct 0.97 ng/dL (0.76-1.46); Thyroid Stim Hormone (TSH) 2.46 uIU/mL (0.358-3.74)
== END ==
PROVIDERS: PCP Internal Medicine; Referring Provider Internal Medicine; Visit Provider Internal Medicine
DX: R25.2 Cramp and spasm (principal); R53.1 Weakness; E83.39 Other disorders of phosphorus metabolism
CPT/HCPCS: 80053; 82306; 83735; 83970; 84100; 84439; 84443; 85025; 85652

== ENCOUNTER → 2019-04-02 07:15 | Outpatient (CLI) | payer MEDICARE, SELFPAY ==
[2019-03-29 06:47] VITALS: BMI 24.0
== END ==
PROVIDERS: PCP Internal Medicine; Referring Provider Internal Medicine; Visit Provider Internal Medicine
DX: R25.2 Cramp and spasm (principal); R53.1 Weakness; E83.39 Other disorders of phosphorus metabolism
CPT/HCPCS: 81050

== ENCOUNTER → 2019-05-08 06:51 | Outpatient (CLI) | payer MEDICARE, SELFPAY ==
[2019-04-11 08:38] VITALS: BMI 23.9
[2019-05-08 08:17] LABS: Absolute Lymphocyte Count 1.19 X10^3/uL (0.83-4.51); Absolute Neutrophil Count 4.7 X10^3/uL (2.0-7.7); Basophil# 0.02 X10^3/uL; Basophil% 0.3 % (0-1); Eosinophil# 0.38 X10^3/uL; Eosinophils% 5.3 % (0-5); Hematocrit 37.6 % (40-54); Hemoglobin 12.7 g/dL (13.0-16.5); Lymphocyte # 1.19 X10^3/ul (4.0); Lymphocyte % 16.7 % (19-41); Mean Corp Hgb Conc 33.8 g/dL (32-36); Mean Corpuscular Hgb 31.5 pg (27.0-32.0); Mean Corpuscular Volume 93.3 fL (80-94); Mean Platelet Vol. 8.8 fl (6.2-12.0); Monocyte# 0.76 X10^3/uL; Monocyte% 10.7 % (0-10); NRBC Flagged by Analyzer 0 % (0-5); Neutrophil # 4.74 X10^3/uL (2.7-7.7); Neutrophil % 66.4 % (47-70); Platelet Count 351 K/mm3 (150-450); RBC Distribution Width CV 12.8 % (11.6-14.6); RBC Distribution Width SD 43.9 fl (35.1-43.9); Red Blood Count 4.03 M/mm3 (4.6-6.2); White Blood Count 7.1 K/mm3 (4.4-11.0)
[2019-05-08 09:01] LABS: Vitamin B12 403 pg/mL (211-911)
[2019-05-08 09:12] LABS: AST(SGOT) 30 U/L (15-37); Alanine Aminotransfer ALT/SGPT 33 U/L (16-61); Albumin, Serum 3.7 g/dL (3.2-5.0); Alkaline Phosphatase 98 U/L (45-117); Anion Gap 5 (5-15); BUN 23 mg/dL (7-18); Calcium,Total 8.9 mg/dL (8.5-10.1); Chloride 111 mmol/L (98-107); Creatinine, Serum 1.53 mg/dL (0.70-1.30); EST Glomerular Filtration Rate 48 mL/min (>60); Est Glom Filt Rate - Afr Amer 58 mL/min (>60); Ferritin 122 ng/mL (26-388); Globulin 3.6 g/dL (2.2-4.2); Glucose 86 mg/dL (74-106); Iron 53 ug/dL (65-175); Iron Binding Capacity,Total 286 ug/dL (250-450); Phosphorus 3.1 mg/dL (2.5-4.9); Potassium 4.7 mmol/L (3.5-5.1); Protein, Total 7.3 g/dL (6.4-8.2); Sodium Level 141 mmol/L (136-145)
== END ==
PROVIDERS: PCP Internal Medicine; Referring Provider Internal Medicine; Visit Provider Internal Medicine
DX: I25.10 Atherosclerotic heart disease of native coronary artery without angina pectoris (principal); N18.3 Chronic kidney disease, stage 3 (moderate); K21.9 Gastro-esophageal reflux disease without esophagitis; E55.9 Vitamin D deficiency, unspecified; D64.9 Anemia, unspecified
CPT/HCPCS: 36415; 80053; 82607; 82728; 82746; 83540; 83550; 84100; 85025

== ENCOUNTER → 2019-06-27 10:30 | Outpatient (CLI) | payer MEDICARE, SELFPAY ==
[2019-04-11 08:38] VITALS: BMI 23.9
[2019-06-27 11:24] LABS: Hematocrit 42.1 % (40-54); Hemoglobin 13.9 g/dL (13.0-16.5); Mean Corpuscular Hgb 31.1 pg (27.0-32.0); Mean Corpuscular Volume 94.2 fL (80-94); Mean Platelet Vol. 8.5 fl (6.2-12.0); Platelet Count 306 K/mm3 (150-450); RBC Distribution Width CV 13.3 % (11.6-14.6); RBC Distribution Width SD 45.9 fl (35.1-43.9); Red Blood Count 4.47 M/mm3 (4.6-6.2); White Blood Count 7.6 K/mm3 (4.4-11.0)
[2019-06-27 11:39] LABS: Protein, Urine (Random) < 6.0 mg/dL (<11.9); Protein:Creat Ratio 61 mg/g CRE (0-200)
[2019-06-27 11:49] LABS: BUN 33 mg/dL (7-18); BUN/Creat Ratio 23.7 RATIO (10-20); Calcium,Total 9.7 mg/dL (8.5-10.1); Chloride 109 mmol/L (98-107); Creatinine, Serum 1.39 mg/dL (0.70-1.30); EST Glomerular Filtration Rate 54 mL/min (>60); Est Glom Filt Rate - Afr Amer 65 mL/min (>60); Glucose 80 mg/dL (74-106); Phosphorus 3.6 mg/dL (2.5-4.9); Potassium 4.5 mmol/L (3.5-5.1); Sodium Level 140 mmol/L (136-145)
[2019-06-27 12:02] LABS: PTHIN 25.6 pg/mL (18.4-80.1)
[2019-06-27 12:06] LABS: Vitamin D,25 Hydroxy 62.3 ng/mL
== END ==
PROVIDERS: PCP Internal Medicine; Referring Provider Internal Medicine Nephrology; Visit Provider Internal Medicine Nephrology
DX: N18.3 Chronic kidney disease, stage 3 (moderate) (principal); Z13.0 Encounter for screening for diseases of the blood and blood-forming organs and certain disorders involving the immune mechanism
CPT/HCPCS: 36415; 80069; 82306; 82570; 83970; 84156; 85027

== ENCOUNTER 2019-07-09 07:58 | Day surgery (SDC) | payer MEDICARE, SELFPAY ==
--- NOTE | 2019-07-01 03:27 | HP_ITS ---
Intake Vital Signs 07/01/19 BMI 23.9 07/01/19 Height 5 ft 10 in 07/01/19 Weight: 165 lb 07/01/19 BMI 23.6 07/01/19 BP 127/86 H 07/01/19 Blood Pressure Location Rt brachial 07/01/19 Position Sitting 07/01/19 Respiration 18 07/01/19 Pulse 65 07/01/19 Pulse Source Monitor 07/01/19 Temp 97.9 F 07/01/19 Temp Source Oral 07/01/19 Pulse Oximetry (%) 99 07/01/19 Oxygen Delivery Method room air Intake Visit Reasons: INGUINAL HERNIA Chief Complaint: evaluate for hernia right groin Group Counselor Required: No Accompanied by: Daughter Is patient in pain?: No Allergies No Known Allergies Allergy (Verified 07/01/19 13:48) Medications Aspirin [Aspirin, Baby] 81 mg PO DAILY@0800 09/18/18 [History Confirmed 07/01/19] ergocalciferol (vitamin D2) 1,250 mcg (50,000 unit) capsule 1,250 mcg PO QWEEK 04/11/19 [History Confirmed 07/01/19] famotidine 20 mg tablet 20 mg PO DAILY 04/11/19 [History Confirmed 07/01/19] losartan 100 mg tablet 100 mg PO DAILY #90 tab 05/05/19 [Rx Confirmed 07/01/19] clopidogrel 75 mg tablet 75 mg PO DAILY #90 tab 05/19/19 [Rx Confirmed 07/01/19] amlodipine 10 mg tablet 2.5 mg PO QHS tab 07/01/19 [History] ascorbate calcium (vitamin C) 500 mg tablet 500 mg PO DAILY 07/01/19 [History Confirmed 07/01/19] atorvastatin 40 mg tablet 40 mg PO .qod tab 07/01/19 [History Confirmed 07/01/19] multivitamin-ferrous fumarate-folic acid 18 mg-400 mcg tablet 1 tab PO DAILY 07/01/19 [History Confirmed 07/01/19] potassium, sodium phosphates 280 mg-160 mg-250 mg oral powder packet 1 packet PO DAILY ea 07/01/19 [History Confirmed 07/01/19] PFSH Medical History (Updated 07/01/19 @ 15:[address] Dario Amin MD) Right inguinal hernia (Acute) Nonrheumatic mitral (valve) insufficiency (Chronic) History of non-ST elevation myocardial infarction (NSTEMI) (Chronic 05/22/15) Atherosclerosis of coronary artery of [place] heart without angina pectoris (Chronic) Essential (primary) hypertension (Chronic) Hyperlipidemia (Chronic) History of back problems (Acute) Right inguinal hernia (Acute) GERD (gastroesophageal reflux disease) (Chronic) Sarcoidosis of lung (Chronic) Calculus of left kidney (Resolved) Surgical History (Updated 07/01/19 @ 13:47 by Adry Diego) History of coronary artery stent placement (Chronic 05/22/15) History of cataract surgery (Acute) History of colonoscopy (Acute ~2011) History of prostatectomy (Acute) H/O shoulder surgery (Chronic) History of extraction of renal calculus (Resolved) Family History Father Hypertension Social History (Updated 07/01/19 @ 15:[address] Dario Amin MD) Smoking Status: Never smoker alcohol intake: never substance use type: does not use caffeine: Yes Type: carbonated beverages Number of servings: 1 what type of physical activity do you participate in: walking, bicycling frequency: daily duration: 60-90 minutes/day seatbelt use: always do you feel safe at home: Yes HPI HPI HPI: ANDRÉS GUEVARA, is a 69 M who presents to the office today for HPI HPI Surgical H&P: Yes HPI: ANDRÉS GUEVARA, is a 69 M who presents to the office today for surgical consultation regarding a symptomatic right inguinal hernia. Dr Cunningham is his primary care physician and Dr. Himanshu Koch is his software qa system specialist. Dr Lane is his urologist and he referred the patient for general surgical review after detecting this hernia on exam. A written copy of my surgical consult and recommendations will be returned to him.. Ongoing now for several weeks he has had a bulge and discomfort in the right groin. It is particularly uncomfortable when he is standing. He is approximately 1 year status post a robotic prostatectomy for prostate cancer. He has never previously had an inguinal hernia repair. He presents with his daughter Senait RojasJOSE A. About 4 weeks ago he had a syncopal spell. He wore a heart monitor for 7 days. Heart rate can be variable but on occasion down into the 40s. His typical heart rate is 40s to 50s. He had previous been on amlodipine. That was at 10 mg and he is now at 2.5 mg. He does have occasional nocturia and occasional urinary incontinence. To date there is been no discussion regarding placement of the pacemaker as far as I am aware. Laboratory as of June 27, 2019 shows a BUN of 33 and creatinine of 1.39. White blood cell count 7.6 with a hemoglobin 13.9 and hematocrit 42.1 and a platelet count of 306,000 It is of additional note at the [facility] on March 29, 2019 had a cardiac stress test showing an ejection fraction of 67%. No evidence for ischemia ROS General General: No weight change, appetite, fatigue, colon cancer, breast cancer or weakness HEENT HEENT: Yes eye surgery; no difficulty swallowing, eye injury, swollen glands or hoarseness Endo Endocrine: No thyroid disease, diabetes mellitus, thyroid cancer, Hair loss, heat intolerance or cold intolerance Skin Skin: No rash or changing moles Breast Breast: No left breast lump, right breast lump, nipple discharge, breast pain, abnormal mammogram, abnormal US or breast enlargement Musc Musculoskeletal: Yes back problems; no arthritis, rheumatoid arthritis, gout or joint pain Cardio Cardiovascular: Yes heart disease, high blood pressure, heart attack and heart stent; no murmur, pacemaker, atrial fibrillation, palpitations, shortness of breat with exertion or chest pain Psych Psychiatric: No depression, anxiety or hearing voices Resp Respiratory: No shortness of breath, No sleep apnea, No cough, No COPD, No asthma, No emphysema, No wheezing Gastro Gastrointestinal: No abdominal pain, No nausea or vomiting, No diarrhea, No constipation, No blood in stool, Yes acid reflux, No hemorrhoids, No ulcers, No gallbladder problem, No black,tarry stools [place] Hematologic: Yes blood thinners, No blood disorders, No bleeding, No anemia, No blood clots Neuro Neurologic: No system reviewed and no additional complaints, except as docu, No as per HPI, No abnormal walking, No abnormal hearing, No abnormal movements, No abnormal speech, No behavioral changes, No burning sensations, No confusion, No seizure-like activity, No unsteadiness, No dizziness, No localized weakness, No frequent falls, No headache(s), No lack of coordination, No loss of vision, No memory loss, No numbness, No other visual disturbances, No radiating pain, No restless legs, No sensory deficit, No fainting, No tingling, No tremor(s), No weakness, No other Exam Const General: cooperative, healthy appearing, comfortable, no acute distress, well developed Nutritional Appearance: average body habitus Orientation: alert, awake, oriented x3 HENMT Head: normal to inspection Eyes General: appearance normal, both eyes and all related structures Chest Chest palpation & inspection: normal inspection of the chest Breast Palpation: No nipple discharge Resp Effort & Inspection: normal respiratory effort Auscultation: clear to auscultation bilaterally Cardio Rate: regular rate Rhythm: regular rhythm Heart Sounds: no murmurs GI Palpation: soft, no hepatosplenomegaly Auscultation: normal bowel sounds, no bruits Other: Testicles are descended bilaterally without mass. Obvious indirect right inguinal hernia currently reducible. Very slight give left external ring no obvious hernia Musc Cervical Spine: normal cervical lordosis Skin Other: Skin of the abdomen and groins clean Neuro Cognition: normal cognition Extrem General: calf tenderness Psych Affect: normal affect Assessment & Plan Problems 1. Right inguinal hernia K40.90 Plan 69-year-old gentleman with a symptomatic right inguinal hernia. He has had a robotic prostatectomy. I propose for him a Kirby right inguinal herniorrhaphy performed with monitored anesthesia care and local anesthetic. I have described him technique, benefit, risk, alternatives. He is on aspirin and clopidogrel. He may continue the aspirin. We will confer with Dr. Himanshu Koch regarding duration of time off the clopidogrel. I would request 4 days. We will also need to discuss with Dr. Himanshu Koch the patient's recent history of relative bradycardia. Otherwise the patient is interested in pursuing scheduling and treatment. He is very active for 69 years of age. He is interested in returning to his gardening. I very much appreciate the opportunity of assisting with his surgical care. We will contact Dr. Himanshu Koch and we will send copies of this note to Dr. Koch and and Dr Ariana Amin M.D., F.A.C.S. Coding Level of Care Code 86937 Diagnoses Right inguinal hernia K40.90 07/01/19 1527 <Electronically signed by Dario brown MD> Date _ Dario Amin MD
[2019-07-01 13:53] VITALS: BMI 23.9
[2019-07-09] VITALS (9 sets, daily range): BP systolic 81–115; BP diastolic 58–69; PULSE 45–65; RESP 15–16; TEMP 36.2–36.9; O2SAT 94–100; BMI 23.0
--- NOTE | 2019-07-09 08:21 | HP.PCM_ITS ---
Problem List (1) Right inguinal hernia Status: Acute History and Physical Date of Admission: 07/09/19 Intake Visit Reasons: INGUINAL HERNIA Chief Complaint: evaluate for hernia right groin Tray Drier Operator Required: No Accompanied by: Daughter Is patient in pain?: No Allergies No Known Allergies Allergy (Verified 07/01/19 13:48) Medications Aspirin [Aspirin, Baby] 81 mg PO DAILY@0800 09/18/18 [History Confirmed 07/01/19] ergocalciferol (vitamin D2) 1,250 mcg (50,000 unit) capsule 1,250 mcg PO QWEEK 04/11/19 [History Confirmed 07/01/19] famotidine 20 mg tablet 20 mg PO DAILY 04/11/19 [History Confirmed 07/01/19] losartan 100 mg tablet 100 mg PO DAILY #90 tab 05/05/19 [Rx Confirmed 07/01/19] clopidogrel 75 mg tablet 75 mg PO DAILY #90 tab 05/19/19 [Rx Confirmed 07/01/19] amlodipine 10 mg tablet 2.5 mg PO QHS tab 07/01/19 [History] ascorbate calcium (vitamin C) 500 mg tablet 500 mg PO DAILY 07/01/19 [History Confirmed 07/01/19] atorvastatin 40 mg tablet 40 mg PO .qod tab 07/01/19 [History Confirmed 0 07/01/19] multivitamin-ferrous fumarate-folic acid 18 mg-400 mcg tablet 1 tab PO DAILY 07/01/19 [History Confirmed 07/01/19] potassium, sodium phosphates 280 mg-160 mg-250 mg oral powder packet 1 packet PO DAILY ea 07/01/19 [History Confirmed 07/01/19] [facility] Medical History (Updated 07/01/19 @ 15:[address] Dario Amin MD) Right inguinal hernia (Acute) Nonrheumatic mitral (valve) insufficiency (Chronic) History of non-ST elevation myocardial infarction (NSTEMI) (Chronic 05/22/15) Atherosclerosis of coronary artery of [place] heart without angina pectoris (Chronic) Essential (primary) hypertension (Chronic) Hyperlipidemia (Chronic) History of back problems (Acute) Right inguinal hernia (Acute) GERD (gastroesophageal reflux disease) (Chronic) Sarcoidosis of lung (Chronic) Calculus of left kidney (Resolved) Surgical History (Updated 07/01/19 @ 13:47 by Adry Diego) History of coronary artery stent placement (Chronic 05/22/15) History of cataract surgery (Acute) History of colonoscopy (Acute ~2011) History of prostatectomy (Acute) H/O shoulder surgery (Chronic) History of extraction of renal calculus (Resolved) Family History Father Hypertension Social History (Updated 07/01/19 @ 15:[address] Dario Amin MD) Smoking Status: Never smoker alcohol intake: never substance use type: does not use caffeine: Yes Type: carbonated beverages Number of servings: 1 what type of physical activity do you participate in: walking, bicycling frequency: daily duration: 60-90 minutes/day seatbelt use: always do you feel safe at home: Yes HPI HPI HPI: ANDRÉS GUEVARA, is a 69 M who presents to the office today for HPI HPI Surgical H&P: Yes HPI: ANDRÉS GUEVARA, is a 69 M who presents to the office today for surgical consultation regarding a symptomatic right inguinal hernia. Dr Cunningham is his primary care physician and Dr. Himanshu Koch is his scientist propagator. Dr Lane is his urologist and he referred the patient for general surgical review after detecting this hernia on exam. A written copy of my surgical consult and recommendations will be returned to him.. Ongoing now for several weeks he has had a bulge and discomfort in the right groin. It is particularly uncomfortable when he is standing. He is approximately 1 year status post a robotic prostatectomy for prostate cancer. He has never previously had an inguinal hernia repair. He presents with his daughter Senait JOSE A Rojas. About 4 weeks ago he had a syncopal spell. He wore a heart monitor for 7 days. Heart rate can be variable but on occasion down into the 40s. His typical heart rate is 40s to 50s. He had previous been on amlodipine. That was at 10 mg and he is now at 2.5 mg. He does have occasional nocturia and occasional urinary incontinence. To date there is been no discussion regarding placement of the pacemaker as far as I am aware. Laboratory as of June 27, 2019 shows a BUN of 33 and creatinine of 1.39. White blood cell count 7.6 with a hemoglobin 13.9 and hematocrit 42.1 and a platelet count of 306,000 It is of additional note at the [facility] on March 29, 2019 had a cardiac stress test showing an ejection fraction of 67%. No evidence for ischemia ROS General General: No weight change, appetite, fatigue, colon cancer, breast cancer or weakness HEENT HEENT: Yes eye surgery; no difficulty swallowing, eye injury, swollen glands or hoarseness Endo Endocrine: No thyroid disease, diabetes mellitus, thyroid cancer, Hair loss, heat intolerance or cold intolerance Skin Skin: No rash or changing moles Breast Breast: No left breast lump, right breast lump, nipple discharge, breast pain, abnormal mammogram, abnormal US or breast enlargement Musc Musculoskeletal: Yes back problems; no arthritis, rheumatoid arthritis, gout or joint pain Cardio Cardiovascular: Yes heart disease, high blood pressure, heart attack and heart stent; no murmur, pacemaker, atrial fibrillation, palpitations, shortness of breat with exertion or chest pain Psych Psychiatric: No depression, anxiety or hearing voices Resp Respiratory: No shortness of breath, No sleep apnea, No cough, No COPD, No asthma, No emphysema, No wheezing Gastro Gastrointestinal: No abdominal pain, No nausea or vomiting, No diarrhea, No constipation, No blood in stool, Yes acid reflux, No hemorrhoids, No ulcers, No gallbladder problem, No black,tarry stools [place] Hematologic: Yes blood thinners, No blood disorders, No bleeding, No anemia, No blood clots Neuro Neurologic: No system reviewed and no additional complaints, except as docu, No as per HPI, No abnormal walking, No abnormal hearing, No abnormal movements, No abnormal speech, No behavioral changes, No burning sensations, No confusion, No seizure-like activity, No unsteadiness, No dizziness, No localized weakness, No frequent falls, No headache(s), No lack of coordination, No loss of vision, No memory loss, No numbness, No other visual disturbances, No radiating pain, No restless legs, No sensory deficit, No fainting, No tingling, No tremor(s), No weakness, No other Exam Const General: cooperative, healthy appearing, comfortable, no acute distress, well de veloped Nutritional Appearance: average body habitus Orientation: alert, awake, oriented x3 HENMT Head: normal to inspection Eyes General: appearance normal, both eyes and all related structures Chest Chest palpation & inspection: normal inspection of the chest Breast Palpation: No nipple discharge Resp Effort & Inspection: normal respiratory effort Auscultation: clear to auscultation bilaterally Cardio Rate: regular rate Rhythm: regular rhythm Heart Sounds: no murmurs GI Palpation: soft, no hepatosplenomegaly Auscultation: normal bowel sounds, no bruits Other: Testicles are descended bilaterally without mass. Obvious indirect right inguinal hernia currently reducible. Very slight give left external ring no obvious hernia Musc Cervical Spine: normal cervical lordosis Skin Other: Skin of the abdomen and groins clean Neuro Cognition: normal cognition Extrem General: calf tenderness Psych Affect: normal affect Assessment & Plan Problems 1. Right inguinal hernia K40.90 Plan 69-year-old gentleman with a symptomatic right inguinal hernia. He has had a robotic prostatectomy. I propose for him a Kirby right inguinal herniorrhaphy performed with monitored anesthesia care and local anesthetic. I have described him technique, benefit, risk, alternatives. He is on aspirin and clopidogrel. He may continue the aspirin. We will confer with Dr. Himanshu Koch regarding duration of time off the clopidogrel. I would request 4 days. We will also need to discuss with Dr. Himanshu Koch the patient's recent history of relative bradycardia. Otherwise the patient is interested in pursuing scheduling and treatment. He is very active for 69 years of age. He is interested in returning to his gardening. I very much appreciate the opportunity of assisting with his surgical care. We will contact Dr. Himanshu Koch and we will send copies of this note to Dr. Koch and and Dr Ariana Amin M.D., F.A.C.S. Coding Level of Care Code 34580 Diagnoses Right inguinal hernia K40.90 07/01/19 1527 <Electronically signed by Dario brown MD> Date _ Dario Amin MD I have re-examined the patient. There are no clinical changes since date of exam. I have discussed with the patient that this is being performed during the COVID- 19 pandemic. The [facility] as demonstrated a lower risk though of course no guarantees can be offered. The patient is aware.
--- NOTE | 2019-07-09 08:24 | PCM.DC.GS ---
Discharge Diet: Light diet - advance as tolerated - if you have questions about your diet instructions, please talk to you doctor. Discharge Activity: May Not Drive - for 1 week or while taking narcotic pain medicine. May shower in (days): 1 Lifting Restrictions: 10 pounds Call your doctor if your incision/area has: Continuous Slow Oozing, Sudden Increased Bleeding, Increased Pain/ Swelling, Increased Redness, Foul Smelling Discharge Call your doctor if you observe: Fever of 101 or Higher Suture Line Care: Avoid Pulling/Pushing, Avoid Pinching/Bending Additional Dressing/Incision Instructions:: Change or remove dressing in 4 days. Leave steri-strips in place for 1 week. Additional Instructions: May restart clopidogrel on if no evidence of bleeding from the time of surgery please Allergies/Adverse Reactions: Allergies No Known Allergies Allergy (Verified 07/09/19 08:14) Medications to take at Discharge Aspirin [Aspirin, Baby] 81 mg PO DAILY@0800 09/18/18 ergocalciferol (vitamin D2) 1,250 mcg (50,000 unit) capsule 1,250 mcg PO QWEEK 04/11/19 famotidine 20 mg tablet 20 mg PO QHS 04/11/19 clopidogrel 75 mg tablet 75 mg PO DAILY #90 tab 05/19/19 amlodipine 10 mg tablet 2.5 mg PO QHS tab 07/01/19 ascorbate calcium (vitamin C) 500 mg tablet 500 mg PO DAILY 07/01/19 atorvastatin 40 mg tablet 40 mg PO .qod tab 07/01/19 multivitamin-ferrous fumarate-folic acid 18 mg-400 mcg tablet 1 tab PO QHS 07/01/19 potassium, sodium phosphates 280 mg-160 mg-250 mg oral powder packet 1 packet PO DAILY ea 07/01/19 Losartan Potassium 1 tab PO DAILY 07/07/19 Peg 400/Hypromellose/Glycerin [Dry Eye Relief Eye Drops] 1 drp OP DAILY 07/07/19 Hydrocodone Bitart/Apap 5-325 [[place] 5MG-325MG] 1 tablet PO Q6H PRN PRN 2 Days #5 tablet 07/09/19 The following prescriptions were given: Hydrocodone Bitart/Apap 5-325 [[place] 5MG-325MG] 1 tablet PO Q6H PRN PRN 2 Days #5 tablet PRN Reason: Pain Transmission Status: Sent to [facility] Primary Care Physician: Abel Cunningham MD [Primary Care Provider] - Test Results: Test results from this visit will be discussed in further detail at your follow-up appointment, if applicable. Please Follow Up With: Dario Amin MD - [phone] When: Call to make an appointment to be seen in about 10 days. Virtual
[2019-07-09] MEDS: Lactated Ringers 1,000 ML 100 ML IV ×2 (08:44→11:38)
[2019-07-09] MEDS: Cefazolin 2 GM in 0.9% Normal Saline 100 ML IV (09:44)
--- NOTE | 2019-07-09 10:00 | HERN_PTH ---
PATIENT: ANDRÉS GUEVARA [place] [facility] [place][id number] AGE/SX: 69/M ROOM: RE07/09/[address]: Dr. Dario Amin MD : [id number] BED: DIS: 07/09/2019 SPEC #: [id number] RECD: 07/09/19 12:10 STATUS: GUERITA DINESH #: [id number] ALE: 07/09/19 10:[address]: Dario Amin DEPT: SURGICAL PATHOLOGY RECD BY: Shamir Gifford ENTERED: 07/10/19 08:46 SP TYPE: Hernia OTHR DR: Dr. Abel Cunningham MD Tissues: HERNIA Procedures: Surgery Specimen Level II HEADER OPERATION: Right inguinal hernia with mesh PRE-OP DIAGNOSIS: Right inguinal hernia K40.90 TISSUE SUBMITTED: Right inguinal hernia sac MICROSCOPIC DIAGNOSIS Soft tissue of right inguinal region, excision: Hernia sac with fibrosis and minimal chronic inflammation. AM:tutu 07/11/19 MICROSCOPIC DESCRIPTION Slides are reviewed. GROSS DESCRIPTION Received in fixative is one container labeled with the patient's name and designated right inguinal hernia sac and cord lipoma. The specimen consists of a piece of gonzales, membranous sac measuring 2 cm in length and up to 1.5 cm in diameter. Also present in the container is a piece of yellow adipose tissue measuring 7 x 2.5 x 1 cm. Sectioning of the adipose tissue reveal yellow adipose cut surfaces without area of necrosis, cystic degeneration or hemorrhage. Shell Machine Operator sections are submitted in one cassette. / SJ:tutu 07/10/19 TC:5 CPT: 84559
[2019-07-09] MEDS: Bupivacaine Mpf 0.5% 30 ML VIAL (10:44)
--- NOTE | 2019-07-09 10:56 | OP.PCM_ITS ---
Problem List (1) Right inguinal hernia Status: Acute Report of Operation Date of Procedure: 07/09/19 Pre-Operative Diagnosis: Indirect right inguinal hernia Post-Operative Diagnosis: Indirect right inguinal hernia with cord lipoma Surgery/Procedure Performed:: Kirby right inguinal herniorrhaphy with excision cord lipoma Description of Surgical Findings:: Timeout and informed consent was obtained. 69-year-old gentleman was taken the operating placed by the table underwent monitored anesthesia care. Ancef 2 g were given intravenously. The right groin was sterilely prepped and draped. 1% lidocaine mixed 50-50 with 0.5% Marcaine was used as a local anesthetic. Throughout the procedure total 20 cc was used. Transverse incision was made in the right groin sharp dissection carried down through the subcutaneous tissue. The external oblique identified and was inside along with this fascia. The ileal nerve identified protected. Circumferential control was taken to the cord structures. The internal ring was identified and a hernia sac identified. This was dissected free to the internal ring. A cord I do not lipoma was identified this was high ligated with 2-0 Vicryl and submitted the specimen. The hernia sac was twisted and then secured with suture ligature of 3-0 Vicryl. I then had the direct space dissected free. I approximated the transversalis fascia to itself with a running 3-0 Ethibond and I used that to reapproximate the internal ring. I then placed a apron cover mesh placed around the internal ring and secured it to itself with 3-0 Ethibond. The ilioinguinal nerve was protected with the cord structures. The lateral tails were trimmed and placed beneath the external oblique. The mesh was then secured to the pubic tubercle the shelving edge of Poupart's and the aponeurosis of the internal/external oblique with multiple interrupted 3-0 Ethibond sutures. Excellent positioning and securement was achieved. The external oblique was approximated laterally with a running 3- 0 Vicryl. Subdermal tissues approximated with simple sutures of interrupted 2-0 Vicryl. The skin edges approximated running septic or 4-0 Monocryl. Steri- Strips Telfa OpSite dressings applied. Sponge and instrument and needle counts were reported to the surgeon to be correct. Blood loss minimal. Specimen hernia sac and cord lipoma. Drains none. Blood loss minimal. He was taken to the recovery room in satisfactory condition without apparent complication Dario D. Cebul, M.D., F.A.C.S. Type of Anesthesia:: Local MAC Anesthesiologist: Evan Villegas
== END 2019-07-09 12:49 | disposition home or self-care (01) ==
LOC: SDC 07:58 → AC 07:58
PROVIDERS: PCP Internal Medicine; Referring Provider Surgery; Visit Provider Surgery
PROC: (CPT 49505; principal; 2019-07-09 09:45)
DX: K40.90 Unilateral inguinal hernia, without obstruction or gangrene, not specified as recurrent (principal); D17.6 Benign lipomatous neoplasm of spermatic cord; Z11.59 Encounter for screening for other viral diseases; I10 Essential (primary) hypertension; I34.0 Nonrheumatic mitral (valve) insufficiency; I25.2 Old myocardial infarction; I25.10 Atherosclerotic heart disease of native coronary artery without angina pectoris; K21.9 Gastro-esophageal reflux disease without esophagitis; D86.0 Sarcoidosis of lung; E78.00 Pure hypercholesterolemia, unspecified; Z85.46 Personal history of malignant neoplasm of prostate; Z87.442 Personal history of urinary calculi; Z85.828 Personal history of other malignant neoplasm of skin; Z95.5 Presence of coronary angioplasty implant and graft; Z79.82 Long term (current) use of aspirin; Z79.02 Long term (current) use of antithrombotics/antiplatelets; Z79.899 Other long term (current) drug therapy
CPT/HCPCS: 00840; 49505; 87635; 88302; G2023; J7120; C1781; J2405; U0002

== ENCOUNTER → 2019-09-25 11:46 | Outpatient (CLI) | payer MEDICARE, SELFPAY ==
[2019-07-09 08:17] VITALS: BMI 23.0
[2019-09-25 12:48] LABS: PSA,Total- Diagnostic < 0.01 ng/mL (0.0-4.0)
== END ==
PROVIDERS: PCP Internal Medicine; Referring Provider Urology; Visit Provider Urology
DX: C61 Malignant neoplasm of prostate (principal)
CPT/HCPCS: 36415; 84153

== ENCOUNTER → 2019-11-24 06:56 | Outpatient (CLI) | payer MEDICARE, SELFPAY ==
[2019-10-07 13:49] VITALS: BMI 23.3
[2019-11-24 07:30] LABS: Absolute Lymphocyte Count 1.04 X10^3/uL (0.83-4.51); Absolute Neutrophil Count 4.3 X10^3/uL (2.0-7.7); Basophil# 0.02 X10^3/uL; Basophil% 0.3 % (0-1); Eosinophils% 7.5 % (0-5); Hematocrit 40.1 % (40-54); Hemoglobin 13.4 g/dL (13.0-16.5); Lymphocyte # 1.04 X10^3/ul (4.0); Lymphocyte % 15.6 % (19-41); Mean Corp Hgb Conc 33.4 g/dL (32-36); Mean Corpuscular Hgb 31.8 pg (27.0-32.0); Mean Corpuscular Volume 95.2 fL (80-94); Mean Platelet Vol. 8.5 fl (6.2-12.0); NRBC Flagged by Analyzer 0 % (0-5); Neutrophil % 64.3 % (47-70); Platelet Count 306 K/mm3 (150-450); RBC Distribution Width SD 45.1 fl (35.1-43.9); Red Blood Count 4.21 M/mm3 (4.6-6.2); White Blood Count 6.7 K/mm3 (4.4-11.0)
[2019-11-24 07:47] LABS: AST(SGOT) 27 U/L (15-37); Alanine Aminotransfer ALT/SGPT 27 U/L (16-61); Albumin, Serum 3.9 g/dL (3.2-5.0); Alkaline Phosphatase 76 U/L (45-117); Anion Gap 4 (5-15); BUN 34 mg/dL (7-18); BUN/Creat Ratio 22.1 RATIO (10-20); Calcium,Total 9.2 mg/dL (8.5-10.1); Chloride 106 mmol/L (98-107); Cholesterol 164 mg/dL (200); Creatinine, Serum 1.54 mg/dL (0.70-1.30); EST Glomerular Filtration Rate 48 mL/min (>60); Est Glom Filt Rate - Afr Amer 58 mL/min (>60); Globulin 3.8 g/dL (2.2-4.2); Glucose 82 mg/dL (74-106); High Density Lipoprotein 54 mg/dL; Potassium 4.2 mmol/L (3.5-5.1); Protein, Total 7.7 g/dL (6.4-8.2); Sodium Level 137 mmol/L (136-145); Triglycerides 109 mg/dL; Very Low Density Lipoprotein 22 mg/dL (5-40)
[2019-11-24 08:44] LABS: Vitamin D,25 Hydroxy 66.2 ng/mL
== END ==
PROVIDERS: PCP Internal Medicine; Referring Provider Internal Medicine; Visit Provider Internal Medicine
DX: I25.10 Atherosclerotic heart disease of native coronary artery without angina pectoris (principal); E55.9 Vitamin D deficiency, unspecified; E83.39 Other disorders of phosphorus metabolism; I12.9 Hypertensive chronic kidney disease with stage 1 through stage 4 chronic kidney disease, or unspecified chronic kidney disease; N18.3 Chronic kidney disease, stage 3 (moderate)
CPT/HCPCS: 36415; 80053; 80061; 82306; 85025

== ENCOUNTER → 2019-12-12 08:42 | Outpatient (CLI) | payer MEDICARE, SELFPAY ==
[2019-10-07 13:49] VITALS: BMI 23.3
--- NOTE | 2019-12-12 08:44 | AAAS_ITS ---
Reason For Study: AAA, Z13.6 Aorta Measurements Aorta Doppler Measurements Proximal aorta measures1.8 X 1.8cm. in cross- Peak systolic flow velocities within the proximal sectional axis. aorta measure 117 cm/sec. Proximal aorta measures1.8cm. in longitudinal Peak systolic flow velocities within the mid aorta axis. measure 89 cm/sec. Mid aorta measures1.6 X 1.6cm. in cross-sectional Peak systolic flow velocities within the distal axis. aorta measure 78 cm/sec. Mid aorta measures1.6cm. in longitudinal axis. Distal aorta measures1.4 X 1.4cm. in cross- sectional axis. Distal aorta measures1.4cm. in longitudinal axis. Left Iliac Artery Left iliac artery measures 1.1 X 1.1 cm. in the longitudinal axis. Left iliac artery measures 1.1 cm. in the cross-sectional axis. Peak systolic velocity in the left iliac artery measures 132 cm/sec. Right Iliac Artery Right iliac artery measures 1.2 X 1.2 cm. in the cross-sectional axis. Right iliac artery measures 1.2 cm. in the longitudinal axis. Peak systolic velocity in the right iliac artery measures 99 cm/sec. Procedure Aorta IVC Iliac vasculature or bypass grafts 67131. Exam performed in department. Interpretation Summary Maximal aortic diameter 1.8 x 1.8 cm proximally Left common iliac 1.1 x 1.1 cm Right common iliac 1.2 x 1.2 cm No evidence for abdominal aortic aneurysm. Ordering Physician: Abel Cunningham Referring Physician: Abel Cunningham Performed By: Kira Guerra, RDCS, RVT
== END ==
PROVIDERS: PCP Internal Medicine; Referring Provider Internal Medicine; Visit Provider Internal Medicine
DX: Z13.6 Encounter for screening for cardiovascular disorders (principal)
CPT/HCPCS: 76706

== ENCOUNTER → 2020-03-30 09:37 | Outpatient (CLI) | payer MEDICARE, SELFPAY ==
[2020-03-30 10:46] LABS: PSA,Total- Diagnostic < 0.01 ng/mL (0.0-4.0)
== END ==
PROVIDERS: PCP Internal Medicine; Referring Provider Urology; Visit Provider Urology
DX: C61 Malignant neoplasm of prostate (principal)
CPT/HCPCS: 36415; 84153

== ENCOUNTER → 2020-05-25 09:36 | Outpatient (CLI) | payer MEDICARE, SELFPAY ==
[2020-05-25 10:38] LABS: Absolute Lymphocyte Count 0.84 X10^3/uL (0.83-4.51); Basophil# 0.03 X10^3/uL; Basophil% 0.4 % (0-1); Eosinophil# 0.41 X10^3/uL; Eosinophils% 5.7 % (0-5); Hematocrit 37.8 % (40-54); Hemoglobin 12.6 g/dL (13.0-16.5); Lymphocyte # 0.84 X10^3/ul (4.0); Lymphocyte % 11.6 % (19-41); Mean Corp Hgb Conc 33.3 g/dL (32-36); Mean Corpuscular Hgb 31.7 pg (27.0-32.0); Mean Corpuscular Volume 95.2 fL (80-94); Mean Platelet Vol. 8.9 fl (6.2-12.0); Monocyte% 12.4 % (0-10); NRBC Flagged by Analyzer 0 % (0-5); Neutrophil # 5.04 X10^3/uL (2.7-7.7); Neutrophil % 69.6 % (47-70); Platelet Count 323 K/mm3 (150-450); RBC Distribution Width CV 12.7 % (11.6-14.6); RBC Distribution Width SD 44.3 fl (35.1-43.9); Red Blood Count 3.97 M/mm3 (4.6-6.2); White Blood Count 7.2 K/mm3 (4.4-11.0)
[2020-05-25 10:56] LABS: Protein:Creat Ratio 44 mg/g CRE (0-200)
[2020-05-25 11:06] LABS: PTHIN 38.9 pg/mL (18.4-80.1)
[2020-05-25 11:10] LABS: Vitamin D,25 Hydroxy 53.6 ng/mL
[2020-05-25 11:15] LABS: ALB/GLOB Ratio 1.1 RATIO (0.9-2.4); AST(SGOT) 20 U/L (15-37); Alanine Aminotransfer ALT/SGPT 26 U/L (16-61); Albumin, Serum 3.8 g/dL (3.2-5.0); Alkaline Phosphatase 74 U/L (45-117); Anion Gap 5 (5-15); BUN 29 mg/dL (7-18); Calcium,Total 9.1 mg/dL (8.5-10.1); Chloride 108 mmol/L (98-107); Creatinine, Serum 1.53 mg/dL (0.70-1.30); EST Glomerular Filtration Rate 48 mL/min (>60); Est Glom Filt Rate - Afr Amer 58 mL/min (>60); Globulin 3.5 g/dL (2.2-4.2); Glucose 89 mg/dL (74-106); Phosphorus 3.1 mg/dL (2.5-4.9); Potassium 4.4 mmol/L (3.5-5.1); Protein, Total 7.3 g/dL (6.4-8.2); Sodium Level 140 mmol/L (136-145)
== END ==
PROVIDERS: PCP Internal Medicine; Referring Provider Internal Medicine Nephrology; Visit Provider Internal Medicine Nephrology
DX: I12.9 Hypertensive chronic kidney disease with stage 1 through stage 4 chronic kidney disease, or unspecified chronic kidney disease (principal); N18.30 Chronic kidney disease, stage 3 unspecified; E55.9 Vitamin D deficiency, unspecified; Z13.0 Encounter for screening for diseases of the blood and blood-forming organs and certain disorders involving the immune mechanism
CPT/HCPCS: 36415; 80053; 82306; 82570; 83970; 84100; 84156; 85025

== ENCOUNTER → 2020-10-01 07:02 | Outpatient (CLI) | payer MEDICARE, SELFPAY ==
--- NOTE | 2020-10-01 07:17 | RAD_ITS ---
STUDY: X-RAY - ABDOMEN/PELVIS REASON FOR EXAM: Male, 70 years old. CALCULUS OF KIDNEY TECHNIQUE: Single AP view of the abdomen / pelvis. COMPARISON: CT 05/04/2017 FINDINGS: Excluded lung bases. There is an unremarkable bowel gas pattern. There is no demonstrated free abdominal air. Calcifications project over the inferior left kidney measuring up to 11 mm. No suspicious calcifications along the expected course of either ureter. There are calcified phleboliths in the pelvis. Normal visualized osseous structures. RAD/Abdomen Single View IMPRESSION: Inferior left kidney nephrolithiasis, similar since prior CT. Electronically Signed: Tom Rosado MD ([place]) at 11:35 EDT , Service support ,
[2020-10-01 08:19] LABS: PSA,Total- Diagnostic < 0.01 ng/mL (0.0-4.0)
== END ==
PROVIDERS: PCP Internal Medicine; Referring Provider Urology; Visit Provider Urology
DX: N20.0 Calculus of kidney (principal); C61 Malignant neoplasm of prostate
CPT/HCPCS: 36415; 74018; 84153

== ENCOUNTER → 2020-11-27 07:29 | Outpatient (CLI) | payer MEDICARE, SELFPAY ==
[2020-11-27 07:59] LABS: Absolute Lymphocyte Count 1.22 X10^3/uL (0.83-4.51); Absolute Neutrophil Count 4.7 X10^3/uL (2.0-7.7); Basophil# 0.03 X10^3/uL; Basophil% 0.4 % (0-1); Eosinophil# 0.56 X10^3/uL; Eosinophils% 7.7 % (0-5); Hematocrit 39.1 % (40-54); Hemoglobin 13.3 g/dL (13.0-16.5); Lymphocyte # 1.22 X10^3/ul (0.83-4.51); Lymphocyte % 16.8 % (19-41); Mean Corpuscular Hgb 31.7 pg (27.0-32.0); Mean Corpuscular Volume 93.3 fL (80-94); Mean Platelet Vol. 8.4 fl (6.2-12.0); Monocyte# 0.77 X10^3/uL; Monocyte% 10.6 % (0-10); NRBC Flagged by Analyzer 0 % (0-5); Neutrophil # 4.68 X10^3/uL (2.7-7.7); Neutrophil % 64.4 % (47-70); Platelet Count 293 K/mm3 (150-450); RBC Distribution Width CV 13.2 % (11.6-14.6); RBC Distribution Width SD 45.1 fl (35.1-43.9); Red Blood Count 4.19 M/mm3 (4.6-6.2); White Blood Count 7.3 K/mm3 (4.4-11.0)
[2020-11-27 08:34] LABS: ALB/GLOB Ratio 0.9 RATIO (0.9-2.4); AST(SGOT) 18 U/L (15-37); Alanine Aminotransfer ALT/SGPT 28 U/L (16-61); Albumin, Serum 3.7 g/dL (3.2-5.0); Alkaline Phosphatase 75 U/L (45-117); Anion Gap 8 (5-15); BUN 30 mg/dL (7-18); BUN/Creat Ratio 20.3 RATIO (10-20); Calcium,Total 9.2 mg/dL (8.5-10.1); Chloride 106 mmol/L (98-107); Cholesterol 162 mg/dL (200); Creatinine, Serum 1.48 mg/dL (0.70-1.30); EST Glomerular Filtration Rate 50 mL/min (>60); Est Glom Filt Rate - Afr Amer 60 mL/min (>60); Globulin 4.3 g/dL (2.2-4.2); Glucose 86 mg/dL (74-106); High Density Lipoprotein 48 mg/dL; Potassium 4.2 mmol/L (3.5-5.1); Sodium Level 140 mmol/L (136-145); Triglycerides 135 mg/dL; Very Low Density Lipoprotein 27 mg/dL (5-40)
[2020-11-27 09:24] LABS: Erythrocyte Sedimentation Rate 10 mm/hr (0-20)
[2020-11-29 08:31] LABS: Vitamin D,25 Hydroxy 50.8 ng/mL
== END ==
PROVIDERS: PCP Internal Medicine; Referring Provider Internal Medicine; Visit Provider Internal Medicine
DX: I12.9 Hypertensive chronic kidney disease with stage 1 through stage 4 chronic kidney disease, or unspecified chronic kidney disease (principal); N18.30 Chronic kidney disease, stage 3 unspecified; E55.9 Vitamin D deficiency, unspecified; E83.39 Other disorders of phosphorus metabolism
CPT/HCPCS: 36415; 80053; 80061; 82306; 85025; 85652

== ENCOUNTER 2021-04-08 07:35 | Outpatient (CLI) | payer MEDICARE, SELFPAY ==
[2021-04-08 08:48] LABS: PSA,Total- Diagnostic 0.01 ng/mL (0.0-4.0)
== END 2021-04-08 23:59 | disposition home or self-care (01) ==
LOC: LAB 07:38
PROVIDERS: PCP Internal Medicine; Referring Provider Urology; Visit Provider Urology
DX: C61 Malignant neoplasm of prostate (principal)
CPT/HCPCS: 36415; 84153

== ENCOUNTER 2021-05-25 06:43 | Outpatient (CLI) | payer MEDICARE, SELFPAY ==
[2021-05-25 07:31] LABS: Absolute Lymphocyte Count 1.11 X10^3/uL (0.83-4.51); Absolute Neutrophil Count 5.5 X10^3/uL (2.0-7.7); Basophil# 0.03 X10^3/uL; Basophil% 0.4 % (0-1); Eosinophil# 0.57 X10^3/uL; Eosinophils% 6.9 % (0-5); Hematocrit 40.5 % (40-54); Hemoglobin 14.4 g/dL (13.0-16.5); Lymphocyte # 1.11 X10^3/ul (0.83-4.51); Lymphocyte % 13.5 % (19-41); Mean Corp Hgb Conc 35.6 g/dL (32-36); Mean Corpuscular Volume 92.7 fL (80-94); Mean Platelet Vol. 8.6 fl (6.2-12.0); Monocyte# 0.94 X10^3/uL; Monocyte% 11.4 % (0-10); NRBC Flagged by Analyzer 0 % (0-5); Neutrophil # 5.52 X10^3/uL (2.7-7.7); Neutrophil % 67.3 % (47-70); Platelet Count 326 K/mm3 (150-450); RBC Distribution Width SD 44.3 fl (35.1-43.9); Red Blood Count 4.37 M/mm3 (4.6-6.2); White Blood Count 8.2 K/mm3 (4.4-11.0)
[2021-05-25 08:48] LABS: AST(SGOT) 33 U/L (15-37); Alanine Aminotransfer ALT/SGPT 43 U/L (16-61); Alkaline Phosphatase 88 U/L (45-117); Anion Gap 5 (5-15); BUN 34 mg/dL (7-18); BUN/Creat Ratio 21.2 RATIO (10-20); Calcium,Total 9.7 mg/dL (8.5-10.1); Chloride 107 mmol/L (98-107); EST Glomerular Filtration Rate 45 mL/min (>60); Est Glom Filt Rate - Afr Amer 55 mL/min (>60); Globulin 3.9 g/dL (2.2-4.2); Glucose 93 mg/dL (74-106); Potassium 4.4 mmol/L (3.5-5.1); Protein, Total 7.9 g/dL (6.4-8.2); Sodium Level 139 mmol/L (136-145); Thyroid Stim Hormone (TSH) 2.28 uIU/mL (0.358-3.74); Vitamin B12 > 2000 pg/mL (211-911); Vitamin D,25 Hydroxy 49.7 ng/mL
[2021-05-25 10:36] LABS: Folates, (Folic Acid) > 100.00 ng/mL (3.1-55.4)
== END 2021-05-25 23:59 | disposition home or self-care (01) ==
PROVIDERS: PCP Internal Medicine; Referring Provider Internal Medicine; Visit Provider Internal Medicine
DX: E55.9 Vitamin D deficiency, unspecified (principal); C61 Malignant neoplasm of prostate; N18.30 Chronic kidney disease, stage 3 unspecified; I12.9 Hypertensive chronic kidney disease with stage 1 through stage 4 chronic kidney disease, or unspecified chronic kidney disease
CPT/HCPCS: 36415; 80053; 82306; 82607; 82746; 84443; 85025

== ENCOUNTER → 2021-06-21 | Outpatient (CLI) | payer MEDICARE, SELFPAY ==
[2021-06-21 11:08] LABS: Absolute Lymphocyte Count 1.01 X10^3/uL (0.83-4.51); Absolute Neutrophil Count 8.6 X10^3/uL (2.0-7.7); Basophil# 0.04 X10^3/uL; Basophil% 0.3 % (0-1); Eosinophil# 0.58 X10^3/uL; Hematocrit 37.1 % (40-54); Hemoglobin 12.6 g/dL (13.0-16.5); Lymphocyte # 1.01 X10^3/ul (0.83-4.51); Lymphocyte % 8.7 % (19-41); Mean Corpuscular Hgb 32.1 pg (27.0-32.0); Mean Corpuscular Volume 94.6 fL (80-94); Mean Platelet Vol. 8.7 fl (6.2-12.0); Monocyte# 1.35 X10^3/uL; Monocyte% 11.6 % (0-10); NRBC Flagged by Analyzer 0 % (0-5); Neutrophil # 8.62 X10^3/uL (2.7-7.7); Neutrophil % 74.1 % (47-70); Platelet Count 321 K/mm3 (150-450); RBC Distribution Width CV 13.1 % (11.6-14.6); RBC Distribution Width SD 45.6 fl (35.1-43.9); Red Blood Count 3.92 M/mm3 (4.6-6.2); White Blood Count 11.6 K/mm3 (4.4-11.0)
[2021-06-21 11:27] LABS: Protein:Creat Ratio 94 mg/g CRE (0-200)
[2021-06-21 11:35] LABS: PTHIN 38.2 pg/mL (18.4-80.1)
[2021-06-21 11:38] LABS: ALB/GLOB Ratio 0.8 RATIO (0.9-2.4); AST(SGOT) 33 U/L (15-37); Alanine Aminotransfer ALT/SGPT 35 U/L (16-61); Albumin, Serum 3.6 g/dL (3.2-5.0); Alkaline Phosphatase 86 U/L (45-117); Anion Gap 6 (5-15); BUN 33 mg/dL (7-18); BUN/Creat Ratio 18.9 RATIO (10-20); Calcium,Total 9.4 mg/dL (8.5-10.1); Chloride 108 mmol/L (98-107); Creatinine, Serum 1.75 mg/dL (0.70-1.30); EST Glomerular Filtration Rate 41 mL/min (>60); Est Glom Filt Rate - Afr Amer 50 mL/min (>60); Globulin 4.3 g/dL (2.2-4.2); Glucose 95 mg/dL (74-106); Magnesium 2.2 mg/dL (1.6-2.6); Phosphorus 2.6 mg/dL (2.5-4.9); Potassium 4.3 mmol/L (3.5-5.1); Protein, Total 7.9 g/dL (6.4-8.2); Sodium Level 138 mmol/L (136-145)
[2021-06-21 11:39] LABS: Vitamin D,25 Hydroxy 47.5 ng/mL
== END | disposition home or self-care (01) ==
LOC: LAB 10:15
PROVIDERS: PCP Internal Medicine; Referring Provider Internal Medicine; Visit Provider Internal Medicine
DX: N18.31 Chronic kidney disease, stage 3a (principal); R25.2 Cramp and spasm; J06.9 Acute upper respiratory infection, unspecified
CPT/HCPCS: 36415; 80053; 82306; 82570; 83735; 83970; 84100; 84156; 85025

== ENCOUNTER → 2021-10-04 | Outpatient (CLI) | payer MEDICARE, SELFPAY ==
[2021-10-04 10:20] LABS: PSA,Total- Diagnostic 0.04 ng/mL (0.0-4.0)
== END | disposition home or self-care (01) ==
LOC: LAB 08:27
PROVIDERS: PCP Internal Medicine; Referring Provider Urology; Visit Provider Urology
DX: C61 Malignant neoplasm of prostate (principal)
CPT/HCPCS: 36415; 84153

== ENCOUNTER → 2021-12-02 | Outpatient (CLI) | payer MEDICARE, SELFPAY ==
--- NOTE | 2021-12-02 08:02 | RAD_ITS ---
INDICATION: D86.0 EXAMINATION/TECHNIQUE: X-RAY - XR Chest 2 Views COMPARISON: 03/29/2019. FINDINGS: The lungs are clear. The cardiomediastinal silhouette is unremarkable. No pleural effusion or pneumothorax. Degenerative changes of the thoracic spine. RAD/Chest PA and Lateral IMPRESSION: No acute radiographic abnormalities. Electronically Signed: Minor Hyde MD at 16:57 EDT ,
[2021-12-02 09:07] LABS: Erythrocyte Sedimentation Rate 10 mm/hr (0-20)
[2021-12-02 09:21] LABS: Vitamin D,25 Hydroxy 58.8 ng/mL
[2021-12-02 10:05] LABS: ALB/GLOB Ratio 1.1 RATIO (0.9-2.4); AST(SGOT) 27 U/L (15-37); Alanine Aminotransfer ALT/SGPT 38 U/L (16-61); Albumin, Serum 3.9 g/dL (3.2-5.0); Alkaline Phosphatase 80 U/L (45-117); Anion Gap 7 (5-15); BUN 28 mg/dL (7-18); BUN/Creat Ratio 18.3 RATIO (10-20); CRP < 2.90 mg/L (0.0-3.0); Calcium,Total 9.3 mg/dL (8.5-10.1); Chloride 108 mmol/L (98-107); Cholesterol 182 mg/dL (200); Creatinine, Serum 1.53 mg/dL (0.70-1.30); EST Glomerular Filtration Rate 48 mL/min (>60); Est Glom Filt Rate - Afr Amer 58 mL/min (>60); Ferritin 192 ng/mL (26-388); Globulin 3.6 g/dL (2.2-4.2); Glucose 90 mg/dL (74-106); High Density Lipoprotein 51 mg/dL; Iron 102 ug/dL (65-175); Iron Binding Capacity,Total 300 ug/dL (250-450); Potassium 4.6 mmol/L (3.5-5.1); Protein, Total 7.5 g/dL (6.4-8.2); Sodium Level 140 mmol/L (136-145); Thyroid Stim Hormone (TSH) 2.04 uIU/mL (0.358-3.74); Triglycerides 158 mg/dL; Very Low Density Lipoprotein 32 mg/dL (5-40)
[2021-12-06 08:37] LABS: Angiotensin Convert Enzyme 34 U/L (14-82)
== END | disposition home or self-care (01) ==
LOC: LAB 07:41
PROVIDERS: PCP Internal Medicine; Visit Provider Internal Medicine
DX: D86.0 Sarcoidosis of lung (principal); N18.30 Chronic kidney disease, stage 3 unspecified; I12.9 Hypertensive chronic kidney disease with stage 1 through stage 4 chronic kidney disease, or unspecified chronic kidney disease; I25.10 Atherosclerotic heart disease of native coronary artery without angina pectoris; E55.9 Vitamin D deficiency, unspecified; D64.9 Anemia, unspecified
CPT/HCPCS: 36415; 71046; 80053; 80061; 82164; 82306; 82728; 82746; 83540; 83550; 84443; 85652; 86140

== ENCOUNTER 2021-12-08 06:49 | Emergency (ER) | payer MEDICARE, SELFPAY ==
[2021-12-08 06:50] VITALS: BP 162/83; PULSE 95; RESP 18; TEMP 36.5; O2SAT 98; BMI 24.0
--- NOTE | 2021-12-08 07:33 | RAD_ITS ---
EXAM: XR CHEST, 1 VIEW CLINICAL INDICATION: chest pain TECHNIQUE: Frontal view of the chest. This report was created using HeartFlow report generation technology. COMPARISON: XR Chest dated 12/02/2021 FINDINGS: LUNGS AND PLEURAL SPACES: Residual left lower lobe pneumonia/atelectasis/scarring. No pneumothorax. No effusion. HEART: Normal heart size. MEDIASTINUM: No mediastinal or hilar mass. BONES/JOINTS: No acute abnormality. SOFT TISSUES: Normal. RAD/Chest 1 View (Portable) IMPRESSION: Left lower lobe pneumonia/atelectasis/scarring. Electronically Signed: Jaydon Terry MD at 8:18 EDT ,
--- NOTE | 2021-12-08 07:33 | EKG12_ITS ---
Test Reason : CP Blood Pressure : / mmHG Vent. Rate : 076 BPM Atrial Rate : 076 BPM P-R Int : 180 ms QRS Dur : 102 ms QT Int : 380 ms P-R-T Axes : 020 081 042 degrees QTc Int : 427 ms Normal sinus rhythm Normal ECG Confirmed by JESSICA MEDINA, EDIS ([id number]), commissioning editor FRED TOLEDO ([id number]) on 12/13/2021 11:07:12 AM Referred By: JACKIE Confirmed By:EDIS LOPEZ MD
[2021-12-08 07:50] VITALS: O2SAT 95
[2021-12-08] MEDS: Aspirin 81 MG TAB.CHEW 324 MG PO (07:51)
--- NOTE | 2021-12-08 07:52 | EDS_ITS ---
HPI History of Present Illness Chief Complaint: Chest Other Narrative Narrative: Patient presents with epigastric pain that began approximate 11 hours prior to arrival. Patient states it came on gradually. Patient states he had difficulty sleeping last night due to the pain. Patient states it has been constant. Patient describes the pain as dull. Patient states pain is over the mid epigastric area and mid abdomen. Patient states nothing makes it better nothing makes it worse. Patient denies any nausea or vomiting. Patient denies any diaphoresis but states he felt clammy. Patient denies any fevers or chills. Patient denies any shortness of breath. Patient does admit to a sore throat and thinks this may be pain from his GERD. CVD Risk Factors: Positive for Hypertension; Negative for Diabetes, Hypercholesterolemia, Family History 1' </=55 or Smoking PE Risk Factors: Positive for Cancer; Negative for Recent Travel/Surgery, Recent Immobilization, Prior DVT or PE or OCP + Smoking + >/=35 PFSH PFSH Medical History Atherosclerosis of coronary artery of [place] heart without angina pectoris Calculus of left kidney Essential (primary) hypertension GERD (gastroesophageal reflux disease) History of back problems History of non-ST elevation myocardial infarction (NSTEMI) (05/22/15) Hyperlipidemia Myocardial infarct Neuralgia of groin Nonrheumatic mitral (valve) insufficiency Prostate cancer Right inguinal hernia 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 Home Medications aspirin 81 mg chewable tablet 81 mg PO DAILY@0800 09/18/18 [History Last Taken Unknown] famotidine 20 mg tablet (Acid Tax Examining Technician (famotidine)) 20 mg PO QHS gerd 04/11/19 [History Last Taken Unknown] ascorbate calcium (vitamin C) 500 mg tablet 500 mg PO DAILY 07/01/19 [History Last Taken Unknown] multivitamin-ferrous fumarate-folic acid 18 mg-400 mcg tablet (Centrum Complete) 1 tab PO QHS 07/01/19 [History Last Taken Unknown] potassium, sodium phosphates 280 mg-160 mg-250 mg oral powder packet (Phos-NaK) 1 packet PO DAILY supplement 07/01/19 [History Last Taken Unknown] ergocalciferol (vitamin D2) 1,250 mcg (50,000 unit) capsule (Vitamin D2) 1,250 mcg PO Q2W 10/07/19 [History Last Taken Unknown] losartan 100 mg tablet 100 mg PO DAILY htn #90 tabs 04/28/21 [Rx Last Taken Unknown] clopidogrel 75 mg tablet 75 mg PO DAILY #90 tabs 06/02/21 [Rx Last Taken Unknown] atorvastatin 40 mg tablet 40 mg PO .qod #45 tabs 09/12/21 [Rx Last Taken Unknown] amlodipine 2.5 mg tablet 2.5 mg PO BID #180 tabs 09/22/21 [Rx Last Taken Unknown] dicyclomine 10 mg capsule 20 mg PO TIDAC PRN Abdominal Discomfort #20 CAPSULES 12/08/21 [Rx Last Taken Unknown] Allergy/AdvReac Type Severity Reaction Status Date / Time No Known Allergies Allergy Verified 12/08/21 06:53 Family History Father Hypertension Surgical History H/O shoulder surgery History of cataract surgery History of colonoscopy (2011) History of coronary artery stent placement (05/22/15) History of extraction of renal calculus History of inguinal herniorrhaphy (07/09/19) History of prostatectomy Social History Smoking Status: Never smoker alcohol intake: never substance use type: does not use caffeine: Yes Type: carbonated beverages Number of servings: 1 what type of physical activity do you participate in: walking and bicycling frequency: daily duration: 60-90 minutes/day seatbelt use: always do you feel safe at home: Yes ROS ROS ED Constitutional Constitutional ED: Denies chills or fever(s) Eyes Eyes: Denies blurry vision or change in vision ENT ENT ED: Reports sore throat; Denies rhinorrhea Cardiovascular Cardiovascular: Denies chest pain or palpitations Respiratory/Chest Respiratory/Chest: Denies cough or dyspnea Gastrointestinal Gastrointestinal: Denies nausea or vomiting Genitourinary Genitourinary ED: Denies dysuria or hematuria Musculoskeletal Musculoskeletal: Denies back pain or neck pain Integumentary Denies abscess or rash Neurologic Neurologic: Denies headache(s) or weakness Allergic/Immunologic Allergic/Immunologic ED: Denies mouth swelling or urticaria EXAM Physical Exam Const Vital Signs: 12/08/21 06:50 12/08/21 06:55 12/08/21 07:50 Temperature 97.7 F L Temperature Source Temporal Pulse Rate 95 Respiratory Rate 18 Respiratory Effort Normal Non-Labored Blood Pressure 162/83 H Blood Pressure Mean 109 Pulse Ox 98 95 Oxygen Delivery Method Room Air Room Air 12/08/21 10:24 Temperature Temperature Source Pulse Rate 76 Respiratory Rate 13 Respiratory Effort Blood Pressure 126/79 H Blood Pressure Mean 94 Pulse Ox 94 Oxygen Delivery Method Room Air Positive well nourished and well developed General Appearance ED: well developed and NAD HEENT Reports moist mucous membranes Neck supple and no JVD Resp normal respiratory effort and clear to auscultation bilaterally Cardio regular rate, regular rhythm and no murmurs GI normal to inspection, nondistended, normoactive bowel sounds GI Narrative: There is mild tenderness over the epigastric area. There is no rebound or guarding noted. Palpation: soft Extremity normal to inspection General Extremety ED: Negative for edema or tenderness General Extremity: Negative for edema Neuro oriented x3, CN's II-XII intact bilaterally and no sensory deficits noted Sensorium / Orientation: alert Motor Exam: strength 5/5 throughout Psych mental status grossly normal Skin no rashes or lesions noted Heart Score History: Slightly/Non-Suspicious ECG: Normal Age: >/= 65 years Risk Factors: 1 or 2 Risk Factors Troponin: </= Normal Limit Score: 3 MDM MDM MDM Narrative Medical decision making narrative: Patient was given aspirin. Patient was given a GI cocktail. EKG was obtained. On my interpretation, it showed a normal sinus rhythm with a rate of 76. MA interval, QRS interval, and QTc intervals were all normal. Sparks was normal. There are no acute ST or T wave changes. Portable 1 view chest x-ray was obtained. On my interpretation, lung bhatt show atelectasis and scarring in the left lower lobe. There is normal cardiac silhouette. Bony thorax is normal. There is no acute process noted. Radiologist also interpreted the x- ray and agrees. CBC shows a mild leukocytosis of 13.4. Basic metabolic profile shows a BUN of 26 and creatinine of 1.6. These are consistent with prior results. Initial high-sensitivity troponin was 7. 2-hour repeat high-sensiti vity troponin was 10. Patient is feeling better on reevaluation. Patient was advised of his findings. Patient was given a prescription for Bentyl. Patient has a HEART score of 3. Patient was advised that this is low risk for acute cardiac event. Patient was instructed to follow-up with his primary care physician in 5 to 7 days. Patient understood and was agreeable with the plan. All questions were answered. Lab Data Attestation: I reviewed the patient's lab results. Labs: Laboratory Results - last 24 hr 12/08/21 12/08/21 12/08/21 07:50 07:50 10:23 WBC 13.4 H RBC 4.22 L Hgb 13.5 Hct 39.3 L MCV 93.1 MCH 32.0 MCHC 34.4 RDW Std Deviation 46.7 H RDW Coeff of Gaby 13.8 Plt Count 335 MPV 8.6 Immature Gran % (Auto) 0.500 Neut % (Auto) 84.4 H Lymph % (Auto) 7.9 L [place] % (Auto) 6.9 Eos % (Auto) 0.2 Baso % (Auto) 0.1 Absolute Neuts (auto) 11.3 H Absolute Lymphs (auto) 1.06 Nucleated RBC % 0 Sodium 137 Potassium 4.4 Chloride 106 Carbon Dioxide 25.0 Anion Gap 6 BUN 26 H Creatinine 1.60 H Estim Creat Clear Calc 43.09 Est GFR (MDRD) Af Amer 55 L Est GFR (MDRD) Non-Af 45 L BUN/Creatinine Ratio 16.2 Glucose 130 H Calcium 9.9 Troponin I High Sens 7 10 Radiography Diagnostic Testing: Clinical Impression(s) from Imaging Studies Chest X-Ray 12/08/21 07:33 IMPRESSION: Left lower lobe pneumonia/atelectasis/scarring. Electronically Signed: Jaydon Terry MD at 8:18 EDT , EKG Initial EKG: Attestation: I personally reviewed and interpreted this EKG as follows: Interpretation: Sinus Rhythm (76) and No Acute Injury Pattern Prior EKG tracings: available for review Prior: Unchanged (03/29/2019) Discharge Plan Triage Chief Complaint: Chest Other ED Provider: Wesley Rios Dx/Rx/DC Orders Clinical Impression: Chest pain of uncertain etiology, Gastritis, Gastroesophageal reflux disease Instructions: ED Chest Pain, Uncertain Cause, ED GERD (Adult), ED Gastritis (Adult) Prescriptions: New dicyclomine 10 MG capsule 20 mg PO TIDAC PRN (Reason: Abdominal Discomfort) Qty: 20 0RF No Action famotidine [Acid Tax Examining Technician (famotidine)] 20 mg tablet 20 mg PO QHS ergocalciferol (vitamin D2) [Vitamin D2] 1,250 mcg (50,000 unit) capsule 1,250 mcg PO Q2W Label Comments: states every other month potassium, sodium phosphates [Phos-NaK] 280-160-250 mg powder in packet 1 packet PO DAILY ascorbate calcium (vitamin C) 500 mg tablet 500 mg PO DAILY Centrum Complete 18-400 mg-mcg tablet 1 tab PO QHS aspirin 81 MG tablet,chewable 81 mg PO DAILY@0800 Label Comments: states dr woods did not want held losartan 100 mg tablet 100 mg PO DAILY Qty: 90 3RF clopidogrel 75 mg tablet 75 mg PO DAILY Qty: 90 4RF Label Comments: stopped per instructions for surgery atorvastatin 40 mg tablet 40 mg PO .qod Qty: 45 3RF amlodipine 2.5 mg tablet 2.5 mg PO BID Qty: 180 3RF Primary Care Provider: Abel Cunningham Referrals: Abel Cunningham MD [Primary Care Provider] - 5-7 Days Disposition Disposition: Home, Self Care Discharge Date/Time: 12/08/21 11:41
[2021-12-08 07:53] LABS: Absolute Lymphocyte Count 1.06 X10^3/uL (0.83-4.51); Absolute Neutrophil Count 11.3 X10^3/uL (2.0-7.7); Basophil# 0.02 X10^3/uL; Basophil% 0.1 % (0-1); Eosinophil# 0.03 X10^3/uL; Eosinophils% 0.2 % (0-5); Hematocrit 39.3 % (40-54); Hemoglobin 13.5 g/dL (13.0-16.5); Lymphocyte # 1.06 X10^3/ul (0.83-4.51); Lymphocyte % 7.9 % (19-41); Mean Corp Hgb Conc 34.4 g/dL (32-36); Mean Corpuscular Volume 93.1 fL (80-94); Mean Platelet Vol. 8.6 fl (6.2-12.0); Monocyte# 0.93 X10^3/uL; Monocyte% 6.9 % (0-10); NRBC Flagged by Analyzer 0 % (0-5); Neutrophil % 84.4 % (47-70); Platelet Count 335 K/mm3 (150-450); RBC Distribution Width CV 13.8 % (11.6-14.6); RBC Distribution Width SD 46.7 fl (35.1-43.9); Red Blood Count 4.22 M/mm3 (4.6-6.2); White Blood Count 13.4 K/mm3 (4.4-11.0)
[2021-12-08] MEDS: Mag Hydrox/Al Hydrox/Simeth 30 ML UDC PO (07:54)
[2021-12-08 08:20] LABS: Anion Gap 6 (5-15); BUN 26 mg/dL (7-18); BUN/Creat Ratio 16.2 RATIO (10-20); Calcium,Total 9.9 mg/dL (8.5-10.1); Chloride 106 mmol/L (98-107); EST Glomerular Filtration Rate 45 mL/min (>60); Est Glom Filt Rate - Afr Amer 55 mL/min (>60); Estimated Creatinine Clearance 43.09 ml/min; Glucose 130 mg/dL (74-106); Potassium 4.4 mmol/L (3.5-5.1); Sodium Level 137 mmol/L (136-145); Troponin-I HS (w/2H Reflex) 7 pg/mL (3.0-78.0)
[2021-12-08 09:51] LABS: Reflex Troponin-HS? (from REC) Y
[2021-12-08 10:24] VITALS: BP 126/79; PULSE 76; RESP 13; O2SAT 94
[2021-12-08 10:48] LABS: Troponin-I HS 10 pg/mL (3.0-78.0)
== END 2021-12-08 11:41 | disposition home or self-care (01) ==
PROVIDERS: Emergency Provider Emergency Medicine; PCP Internal Medicine; Visit Provider Emergency Medicine
DX: R07.9 Chest pain, unspecified (principal); N18.30 Chronic kidney disease, stage 3 unspecified; J02.9 Acute pharyngitis, unspecified; K29.70 Gastritis, unspecified, without bleeding; E78.5 Hyperlipidemia, unspecified; I25.10 Atherosclerotic heart disease of native coronary artery without angina pectoris; I12.9 Hypertensive chronic kidney disease with stage 1 through stage 4 chronic kidney disease, or unspecified chronic kidney disease; K21.9 Gastro-esophageal reflux disease without esophagitis; R10.13 Epigastric pain
CPT/HCPCS: 71045; 80048; 84484; 85025; 93005; 99283

== ENCOUNTER → 2022-01-06 | Outpatient (CLI) | payer MEDICARE, SELFPAY ==
--- NOTE | 2022-01-06 09:05 | RAD_ITS ---
EXAM: XR LUMBOSACRAL SPINE, 4 OR 5 VIEWS CLINICAL INDICATION: PAIN TECHNIQUE: Frontal, lateral and bilateral oblique views of the lumbar spine. This report was created using [employer] report [employer] technology. COMPARISON: None. FINDINGS: VERTEBRAE: Unremarkable. Preserved vertebral body height. No fracture. No spondylolisthesis. Preservation of the normal lumbar lordosis. No significant facet arthropathy. DISC SPACES: No acute findings. Disc spaces are maintained. GASTROINTESTINAL TRACT: Unremarkable as visualized. Included bowel gas pattern is non-obstructive. RAD/L/S Spine Min 4 Views IMPRESSION: No evidence of lumbar spinal fracture or spondylolisthesis. Electronically Signed: Devin Sutton MD at 19:45 EST ,
== END | disposition home or self-care (01) ==
LOC: RAD 08:59
PROVIDERS: PCP Internal Medicine; Visit Provider Internal Medicine
DX: M54.50 Low back pain, unspecified (principal)
CPT/HCPCS: 72110

== ENCOUNTER 2022-01-13 14:21 | Outpatient (CLI) | payer MEDICARE, SELFPAY ==
--- NOTE | 2022-01-13 14:24 | CT_ITS ---
INDICATION: Chronic cough. History of sarcoidosis and hypertension. EXAMINATION: CT CHEST WITHOUT CONTRAST - CT Chest W/O Contrast Injection TECHNIQUE: Helically acquired images were obtained of the chest. A radiation dose optimization technique was used for this scan. IV Contrast dosage and agent: None. COMPARISON: Chest, December 08, 2021. FINDINGS: LUNGS, PLEURA AND LARGE AIRWAYS: Lungs are well expanded. There are scattered soft tissue nodules throughout both lung most marked in the perihilar regions. These are subcentimeter in size. There is linear atelectasis at the left lung base. No consolidation. No pleural effusion or thickening. No pneumothorax. THYROID: No thyroid lesions. HEART AND PERICARDIUM: Heart size is normal. No pericardial effusion. CORONARY ARTERIES: Mild coronary artery calcifications. VESSELS: Minimal atherosclerotic changes of the thoracic aorta without aneurysm. Normal pulmonary arteries. MEDIASTINUM AND KENDY: Mediastinal lymphadenopathy. Bilateral hilar lymphadenopathy most marked on the right. Normal esophagus. No evidence of hiatal hernia. UPPER ABDOMEN: No acute pathology. BONES: Degenerative changes of the thoracic spine. No fracture. No lytic or blastic lesions are seen. CT/Chest without Contrast IMPRESSION: 1. Mediastinal and right hilar lymphadenopathy consistent with pulmonary sarcoidosis. 2. Scattered subcentimeter pulmonary nodules. This is consistent with his last common manifestation of sarcoid. The possibility of other etiologies cannot be ruled out on the current exam. Electronically Signed: Prosper Abreu DO at 19:45 [facility] ,
== END 2022-01-13 23:59 | disposition home or self-care (01) ==
LOC: CT 14:21
PROVIDERS: PCP Internal Medicine; Referring Provider Internal Medicine Pulmonary Disease; Visit Provider Internal Medicine Pulmonary Disease
DX: R05.3 Chronic cough (principal); D86.0 Sarcoidosis of lung
CPT/HCPCS: 71250

== ENCOUNTER → 2022-02-28 | Outpatient (CLI) | payer MEDICARE, SELFPAY ==
[2022-02-28 09:17] LABS: Absolute Lymphocyte Count 1.83 X10^3/uL (0.83-4.51); Absolute Neutrophil Count 11.6 X10^3/uL (2.0-7.7); Basophil# 0.03 X10^3/uL; Basophil% 0.2 % (0-1); Eosinophil# 0.03 X10^3/uL; Eosinophils% 0.2 % (0-5); Hematocrit 40.1 % (40-54); Hemoglobin 13.3 g/dL (13.0-16.5); Lymphocyte # 1.83 X10^3/ul (0.83-4.51); Lymphocyte % 12.4 % (19-41); Mean Corp Hgb Conc 33.2 g/dL (32-36); Mean Corpuscular Hgb 32.4 pg (27.0-32.0); Mean Corpuscular Volume 97.6 fL (80-94); Mean Platelet Vol. 8.8 fl (6.2-12.0); Monocyte% 7.4 % (0-10); NRBC Flagged by Analyzer 0 % (0-5); Neutrophil # 11.63 X10^3/uL (2.7-7.7); Neutrophil % 78.5 % (47-70); Platelet Count 336 K/mm3 (150-450); Red Blood Count 4.11 M/mm3 (4.6-6.2); White Blood Count 14.8 K/mm3 (4.4-11.0)
[2022-02-28 09:54] LABS: AST(SGOT) 16 U/L (15-37); Alanine Aminotransfer ALT/SGPT 37 U/L (16-61); Albumin, Serum 3.5 g/dL (3.2-5.0); Alkaline Phosphatase 70 U/L (45-117); Bilirubin, Direct 0.22 mg/dL (0.00-0.30); CRP < 2.90 mg/L (0.0-3.0); Calcium,Total 9.2 mg/dL (8.5-10.1); Globulin 3.4 g/dL (2.2-4.2); Protein, Total 6.9 g/dL (6.4-8.2)
== END | disposition home or self-care (01) ==
LOC: LAB 08:25
PROVIDERS: PCP Internal Medicine; Referring Provider Internal Medicine Pulmonary Disease; Visit Provider Internal Medicine Pulmonary Disease
DX: D86.0 Sarcoidosis of lung (principal); R05.9 Cough, unspecified
CPT/HCPCS: 36415; 80076; 82310; 85025; 86140

== ENCOUNTER → 2022-04-07 | Outpatient (CLI) | payer MEDICARE, SELFPAY ==
[2022-04-07 09:35] LABS: PSA,Total- Diagnostic < 0.01 ng/mL (0.0-4.0)
== END | disposition home or self-care (01) ==
LOC: LAB 08:41
PROVIDERS: PCP Internal Medicine; Referring Provider Registered Nurse; Visit Provider Registered Nurse
DX: C61 Malignant neoplasm of prostate (principal)
CPT/HCPCS: 36415; 84153

== ENCOUNTER → 2022-04-19 | Outpatient (CLI) | payer MEDICARE, SELFPAY ==
--- NOTE | 2022-04-19 13:36 | CT_ITS ---
STUDY: CT CHEST WITHOUT CONTRAST REASON FOR EXAM: Male, 71 years old. SARCOIDOSIS RADIATION DOSAGE (If Supplied By Facility): CTDIvol = ( 10.05 ) mGy, DLP = ( 407.02 ) mGycm TECHNIQUE: Transaxial imaging was performed without the administration of intravenous contrast material. Multiplanar coronal and sagittal images were reformatted. Individualized dose optimization techniques were used for this CT. COMPARISON: Comparison is made with prior study dated 01/13/2022. FINDINGS: CHEST Stable scarring in both lower lobes as well as in the medial aspect of the right middle lobe and lingula segment of the left upper lobe. Stable scattered bilateral subcentimeter pulmonary nodules. There is no demonstrated pleural abnormality. There are calcifications of the coronary arteries. There are multiple small lymph nodes within the mediastinum, which are normal in size and morphology most compatible with reactive lymph hyperplasia. Mild degree of right hilar enlargement. Normal unenhanced pulmonary arteries. There is atherosclerotic calcification of the aortic arch with tortuosity and elongation of the aortic arch and descending thoracic aorta. There are degenerative changes of the thoracic spine. There is no demonstrated abnormality of the visualized upper abdomen. CT/Chest without Contrast IMPRESSION: Stable examination. Electronically Signed: Aiden Giordano MD at 15:11 EST ,
== END | disposition home or self-care (01) ==
LOC: CT 13:35
PROVIDERS: PCP Internal Medicine; Referring Provider Internal Medicine Pulmonary Disease; Visit Provider Internal Medicine Pulmonary Disease
DX: D86.0 Sarcoidosis of lung (principal); R05.9 Cough, unspecified
CPT/HCPCS: 71250

== ENCOUNTER → 2022-06-08 | Outpatient (CLI) | payer MEDICARE, SELFPAY ==
[2022-06-08 07:43] LABS: Absolute Lymphocyte Count 1.52 X10^3/uL (0.83-4.51); Absolute Neutrophil Count 3.1 X10^3/uL (2.0-7.7); Basophil# 0.02 X10^3/uL; Basophil% 0.3 % (0-1); Eosinophil# 0.46 X10^3/uL; Eosinophils% 7.8 % (0-5); Hematocrit 39.1 % (40-54); Hemoglobin 13.1 g/dL (13.0-16.5); Lymphocyte # 1.52 X10^3/ul (0.83-4.51); Lymphocyte % 25.9 % (19-41); Mean Corp Hgb Conc 33.5 g/dL (32-36); Mean Corpuscular Hgb 32.4 pg (27.0-32.0); Mean Corpuscular Volume 96.8 fL (80-94); Mean Platelet Vol. 8.5 fl (6.2-12.0); Monocyte# 0.77 X10^3/uL; Monocyte% 13.1 % (0-10); NRBC Flagged by Analyzer 0 % (0-5); Neutrophil % 52.7 % (47-70); Platelet Count 319 K/mm3 (150-450); RBC Distribution Width CV 12.9 % (11.6-14.6); RBC Distribution Width SD 46.1 fl (35.1-43.9); Red Blood Count 4.04 M/mm3 (4.6-6.2); White Blood Count 5.9 K/mm3 (4.4-11.0)
[2022-06-08 07:54] LABS: Protein, Urine (Random) 6.2 mg/dL (<11.9); Protein:Creat Ratio 38 mg/g CRE (0-200)
[2022-06-08 08:10] LABS: PTHIN 50.7 pg/mL (18.4-80.1)
[2022-06-08 08:14] LABS: Vitamin D,25 Hydroxy 64.8 ng/mL
[2022-06-08 08:18] LABS: ALB/GLOB Ratio 1.3 RATIO (0.9-2.4); AST(SGOT) 25 U/L (15-37); Alanine Aminotransfer ALT/SGPT 30 U/L (16-61); Albumin, Serum 3.9 g/dL (3.2-5.0); Alkaline Phosphatase 82 U/L (45-117); Anion Gap 4 (5-15); BUN 27 mg/dL (7-18); BUN/Creat Ratio 16.6 RATIO (10-20); Calcium,Total 9.3 mg/dL (8.5-10.1); Chloride 110 mmol/L (98-107); Creatinine, Serum 1.63 mg/dL (0.70-1.30); EST Glomerular Filtration Rate 44 mL/min (>60); Est Glom Filt Rate - Afr Amer 54 mL/min (>60); Globulin 3.1 g/dL (2.2-4.2); Glucose 94 mg/dL (74-106); Phosphorus 3.2 mg/dL (2.5-4.9); Potassium 4.4 mmol/L (3.5-5.1); Sodium Level 138 mmol/L (136-145)
== END | disposition home or self-care (01) ==
LOC: LAB 06:57
PROVIDERS: PCP Internal Medicine; Referring Provider Internal Medicine Nephrology; Visit Provider Internal Medicine Nephrology
DX: D64.9 Anemia, unspecified (principal); N18.31 Chronic kidney disease, stage 3a; E55.9 Vitamin D deficiency, unspecified
CPT/HCPCS: 36415; 80053; 82306; 82570; 83970; 84100; 84156; 85025

== ENCOUNTER → 2022-07-18 | Outpatient (CLI) | payer MEDICARE, SELFPAY ==
[2022-07-18 14:42] LABS: Erythrocyte Sedimentation Rate 8 mm/hr (0-20)
[2022-07-18 15:31] LABS: CRP < 2.90 mg/L (0.0-3.0)
[2022-07-20 15:08] LABS: Angiotensin Convert Enzyme 37 U/L (14-82)
== END | disposition home or self-care (01) ==
LOC: LAB 14:12
PROVIDERS: PCP Internal Medicine; Referring Provider Internal Medicine Pulmonary Disease; Visit Provider Internal Medicine Pulmonary Disease
DX: R05.9 Cough, unspecified (principal); D86.0 Sarcoidosis of lung
CPT/HCPCS: 36415; 82164; 85652; 86140

== ENCOUNTER → 2022-12-08 | Outpatient (CLI) | payer MEDICARE, SELFPAY ==
[2022-12-08 09:25] LABS: Absolute Lymphocyte Count 1.26 X10^3/uL (0.83-4.51); Absolute Neutrophil Count 4.4 X10^3/uL (2.0-7.7); Basophil# 0.02 X10^3/uL; Basophil% 0.3 % (0-1); Eosinophil# 0.42 X10^3/uL; Hematocrit 38.5 % (40-54); Lymphocyte # 1.26 X10^3/ul (0.83-4.51); Lymphocyte % 18.1 % (19-41); Mean Corp Hgb Conc 33.8 g/dL (32-36); Mean Corpuscular Hgb 32.3 pg (27.0-32.0); Mean Corpuscular Volume 95.8 fL (80-94); Mean Platelet Vol. 8.8 fl (6.2-12.0); Monocyte# 0.87 X10^3/uL; Monocyte% 12.5 % (0-10); NRBC Flagged by Analyzer 0 % (0-5); Neutrophil # 4.37 X10^3/uL (2.7-7.7); Neutrophil % 62.5 % (47-70); Platelet Count 354 K/mm3 (150-450); RBC Distribution Width CV 13.2 % (11.6-14.6); RBC Distribution Width SD 46.5 fl (35.1-43.9); Red Blood Count 4.02 M/mm3 (4.6-6.2)
[2022-12-08 09:46] LABS: ALB/GLOB Ratio 1.1 RATIO (0.9-2.4); AST(SGOT) 30 U/L (15-37); Alanine Aminotransfer ALT/SGPT 31 U/L (16-61); Albumin, Serum 3.7 g/dL (3.2-5.0); Alkaline Phosphatase 80 U/L (45-117); Anion Gap 3 (5-15); BUN 37 mg/dL (7-18); BUN/Creat Ratio 25.3 RATIO (10-20); Calcium,Total 9.3 mg/dL (8.5-10.1); Chloride 111 mmol/L (98-107); Cholesterol 166 mg/dL (200); Creatinine, Serum 1.46 mg/dL (0.70-1.30); EST Glomerular Filtration Rate 50 mL/min (>60); Est Glom Filt Rate - Afr Amer 61 mL/min (>60); Globulin 3.5 g/dL (2.2-4.2); Glucose 88 mg/dL (74-106); High Density Lipoprotein 47 mg/dL; Phosphorus 3.1 mg/dL (2.5-4.9); Potassium 4.5 mmol/L (3.5-5.1); Protein, Total 7.2 g/dL (6.4-8.2); Sodium Level 141 mmol/L (136-145); Triglycerides 110 mg/dL; Very Low Density Lipoprotein 22 mg/dL (5-40)
[2022-12-08 10:29] LABS: Vitamin D,25 Hydroxy 58.9 ng/mL
== END | disposition home or self-care (01) ==
LOC: LAB 08:07
PROVIDERS: PCP Internal Medicine; Referring Provider Internal Medicine; Visit Provider Internal Medicine
DX: I25.10 Atherosclerotic heart disease of native coronary artery without angina pectoris (principal); N18.30 Chronic kidney disease, stage 3 unspecified; E55.9 Vitamin D deficiency, unspecified
CPT/HCPCS: 36415; 80053; 80061; 82306; 84100; 85025

== ENCOUNTER → 2023-01-05 | Outpatient (CLI) | payer MEDICARE, SELFPAY ==
[2023-01-05 08:39] LABS: PSA,Total - Annual Screen < 0.01 ng/mL (0.00-4.00)
== END | disposition home or self-care (01) ==
LOC: LAB 07:37
PROVIDERS: PCP Internal Medicine; Referring Provider Registered Nurse; Visit Provider Registered Nurse
DX: C61 Malignant neoplasm of prostate (principal); Z12.5 Encounter for screening for malignant neoplasm of prostate
CPT/HCPCS: 36415; 84153; G0103

== ENCOUNTER 2023-04-08 17:10 | Inpatient (IN) | payer MEDICARE, SELFPAY ==
[2023-04-08] VITALS (12 sets, daily range): BP systolic 74–170; BP diastolic 52–94; PULSE 80–120; RESP 14–44; TEMP 36.6–40.9; O2SAT 78–97; BMI 23.1; BMI 23.6
--- NOTE | 2023-04-08 17:43 | EKG12_ITS ---
Test Reason : SOB Blood Pressure : / mmHG Vent. Rate : 083 BPM Atrial Rate : 083 BPM P-R Int : 172 ms QRS Dur : 104 ms QT Int : 346 ms P-R-T Axes : 021 069 034 degrees QTc Int : 406 ms Normal sinus rhythm Normal ECG Confirmed by Palomo Garay ([id number]), editor & co founder FRED TOLEDO ([id number]) on 04/10/2023 9:25:03 AM Referred By: Confirmed By:Palomo Garay
--- NOTE | 2023-04-08 17:53 | EDS_ITS ---
HPI <LISETTE Swift - Last Filed: 04/08/23 21:20> History of Present Illness Chief Complaint: Fever Narrative Narrative: Patient is 72-year-old male with history of CAD, hyperlipidemia, kidney disease, GERD, [place] who presents to the emergency department with 3 days of generalized malaise, 2 days of fever and chills, nausea and vomiting, shortness of breath. Patient states that he is just so weak over the last 24 hours, is having trouble getting out of bed. Per the daughter who is also in the medical field, is not acting like himself. Denies any sick contacts, denies any recent antibiotic use. [facility] <LISETTE Swift - Last Filed: 04/08/23 21:20> [facility] Medical History (Updated 04/09/23 @ 10:[address] Mau Acharya MD) Atherosclerosis of coronary artery of [place] heart without angina pectoris Calculus of left kidney Essential (primary) hypertension GERD (gastroesophageal reflux disease) History of back problems History of non-ST elevation myocardial infarction (NSTEMI) (05/22/15) Hyperlipidemia Myocardial infarct Neuralgia of groin Nonrheumatic mitral (valve) insufficiency Prostate cancer Right inguinal hernia 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 Home Medications aspirin 81 mg chewable tablet 81 mg PO DAILY@0800 09/18/18 [History Last Taken Unknown] famotidine 20 mg tablet (Acid Marketing Program Coordinator (famotidine)) 20 mg PO QHS gerd 04/11/19 [History Last Taken Unknown] ascorbate calcium (vitamin C) 500 mg tablet 500 mg PO DAILY 07/01/19 [History Last Taken Unknown] multivitamin-ferrous fumarate-folic acid 18 mg-400 mcg tablet (Centrum Complete) 1 tab PO QHS 07/01/19 [History Last Taken Unknown] ergocalciferol (vitamin D2) 1,250 mcg (50,000 unit) capsule (Vitamin D2) 1,250 mcg PO Q2W 10/07/19 [History Last Taken Unknown] losartan 100 mg tablet 100 mg PO DAILY htn #90 tabs 04/25/22 [Rx Last Taken Unknown] atorvastatin 40 mg tablet 40 mg PO .qod #45 tabs 08/17/22 [Rx Last Taken Unknown] clopidogrel 75 mg tablet 75 mg PO DAILY #90 tabs 08/30/22 [Rx Last Taken Unknown] amlodipine 2.5 mg tablet 2.5 mg PO BID #180 tabs 09/15/22 [Rx Last Taken Unknown] Allergy/AdvReac Type Severity Reaction Status Date / Time No Known Allergies Allergy Verified 04/08/23 17:12 Family History Father Hypertension Surgical History H/O shoulder surgery History of cataract surgery History of colonoscopy (2011) History of coronary artery stent placement (05/22/15) History of extraction of renal calculus History of inguinal herniorrhaphy (07/09/19) History of prostatectomy Social History Smoking Status: Never smoker alcohol intake: never substance use type: does not use caffeine: Yes Type: carbonated beverages Number of servings: 1 what type of physical activity do you participate in: walking and bicycling frequency: daily duration: 60-90 minutes/day seatbelt use: always do you feel safe at home: Yes ROS <LISETTE Swift - Last Filed: 04/08/23 21:20> ROS ED ROS Narrative Constitutional: Negative for weight loss. Positive fever chills nausea vomiting Eyes: Negative for vision loss, vision change, double vision ENT: Negative for any sore throat, ear pain, congestion Cardiovascular: Negative for any chest pain, tightness, palpitations Respiratory: Negative for any cough, sputum production, hemoptysis, dyspnea, dyspnea on exertion, orthopnea Gastrointestinal: Negative for any abdominal pain, diarrhea, constipation, blood in stool, blood in vomit. Positive for nausea vomiting : Negative for any urinary frequency, dysuria, retention, blood in urine Muscle skeletal: Negative for any neck pain, back pain. Positive for generalized malaise, muscle pains Neurological: Negative for any headache, syncope, dizziness Skin: Negative for any rashes, itching, abrasions, lacerations Psychiatric: Negative for any depression, anxiety, stress, suicidal ideation, homicidal ideation Hematologic: Negative for any excessive bruising, easy bleeding EXAM <LISETTE Swift - Last Filed: 04/08/23 21:20> Physical Exam Narrative Exam Narrative: Vital signs reviewed. Patient is in no distress, patient is slightly hypotensive, patient does look dry however he is alert and orient x 4. HEET: Head normocephalic atraumatic, TMs clear bilaterally. Posterior pharynx is clear, dry mucous membranes. Nares clear bilaterally. Neck: Supple with no lymphadenopathy or tenderness. No signs of meningismus. Cardiac: Regular rate and rhythm no murmurs gallops or rubs, equal peripheral pulses bilaterally. Respiratory: Lungs clear to auscultation bilaterally. No chest tenderness. Abdomen: Soft, nontender, nondistended. No abdominal bruit or pulsatile masses. No hepatosplenomegaly Extremities: No peripheral edema, no signs of gross trauma or deformity. Active full range of motion of all extremities. Neuro: Cranial nerves II through XII intact, no focal neurological deficits. Skin: Clean dry and intact with no rash, purpura, petechiae, vesicles or pustules. Backs/flank: No CVA tenderness, no midline spinal tenderness, no deformity. Psych: Normal mood and affect. No SI, HI or acute psychosis. Const Vital Signs: 04/08/23 17:11 04/08/23 18:35 04/08/23 20:21 Temperature 97.9 F 97.9 F Temperature Source Temporal Oral Pulse Rate 89 89 80 Respiratory Rate 14 14 17 Blood Pressure 89/52 L 74/69 L 96/57 L Blood Pressure Mean 64 70 70 Pulse Ox 97 97 94 Oxygen Delivery Method Room Air Room Air Room Air Positive well nourished and well developed General Appearance ED: well developed <Dr. Fatmata Brower, DO - Last Filed: 04/13/23 08:30> Physical Exam Const Vital Signs: 04/08/23 17:11 04/08/23 18:35 04/08/23 20:21 Temperature 97.9 F 97.9 F Temperature Source Temporal Oral Pulse Rate 89 89 80 Respiratory Rate 14 14 17 Blood Pressure 89/52 L 74/69 L 96/57 L Blood Pressure Mean 64 70 70 Pulse Ox 97 97 94 Oxygen Delivery Method Room Air Room Air Room Air Sepsis Attestation <Dr. Fatmata Brower, DO - Last Filed: 04/13/23 08:30> Sepsis Alert: Yes Sepsis Attestation: Agree w/Sepsis Date exam was performed: 04/08/23 Time exam was performed: 22:51 Possible Source of Sepsis: Genitourinary Sepsis Organ Dysfunction Criteria Present: SBP < 90 mmHg or MAP < 65 mmHg, Creatinine > 2.0 mg/dL and Lactic Acid > 2 mmol/L Fluid Resuscitation Fluid resuscitation indicated?: Yes Fluid Resuscitation ordered: 30 ml/kg fluid bolus ordered Amount of fluid ordered: 3,000 Sepsis Note Date exam was performed: 04/08/23 Time exam was performed: 23:00 Sepsis Attestation: Sepsis re-evaluation was performed Response to fluids: Fluid responsive hypotension MDM <LISETTE Swift - Last Filed: 04/08/23 21:20> ANTH[facility]Y Lab Data Labs: Laboratory Results - last 24 hr 04/08/23 04/08/23 04/08/23 18:00 18:40 19:45 WBC 15.6 H RBC 3.57 L Hgb 11.3 L Hct 33.0 L MCV 92.4 MCH 31.7 MCHC 34.2 RDW Std Deviation 44.8 H RDW Coeff of Gaby 13.2 Plt Count 183 MPV 8.7 Immature Gran % (Auto) 0.900 Neut % (Auto) 96.0 H Lymph % (Auto) 2.2 L Dickey % (Auto) 0.8 Eos % (Auto) 0.0 Baso % (Auto) 0.1 Absolute Neuts (auto) 15.0 H Absolute Lymphs (auto) 0.35 L Nucleated RBC % 0 Differential Comment SCANNED Sodium 143 Potassium 3.9 Chloride 111 H Carbon Dioxide 20.0 L Anion Gap 12 BUN 44 H Creatinine 3.33 H Estim Creat Clear Calc 20.40 Est GFR (MDRD) Af Amer 24 L Est GFR (MDRD) Non-Af 19 L BUN/Creatinine Ratio 13.2 Glucose 118 H Lactic Acid 6.9 H* Calcium 9.3 Phosphorus 1.2 L Total Bilirubin 1.40 H AST 40 H ALT 35 Alkaline Phosphatase 116 Total Creatine Kinase 176 Total Protein 6.3 L Albumin 3.1 L Globulin 3.2 Albumin/Globulin Ratio 1.0 Lipase 21 Blood Type O POSITIVE Antibody Screen NEGATIVE Radiography Diagnostic Testing: Clinical Impression(s) from Imaging Studies Chest X-Ray 04/08/23 18:40 IMPRESSION: No radiographic evidence of acute cardiopulmonary disease. Electronically Signed: Melchor Oviedo MD at 18:57 EST , Chest/Abdomen/Pelvis CT 04/08/23 19:45 IMPRESSION: 1. Diffuse scattered bilateral pulmonary nodules are stable. 2. Moderate left hydronephroureter caused by multiple distal ureteral stones. The largest measures 4 mm. Electronically Signed: Melchor Oviedo MD at 20:48 EST , EKG EKG shows normal sinus rhythm: Attestation: I personally reviewed and interpreted this EKG as follows: Comments: Normal sinus rhythm, rate of 83 bpm, OH interval 172 ms, QRS duration 104 ms, no acute ST elevation, no acute infarct noted. Treatment and Re-Evaluation :: Patient appears generally well, patient appears nontoxic vital signs are stable. Presenting to the emergency department with complaints of malaise, fever and chills, cough, shortness of breath. Patient will receive a full workup. Differential diagnose includes community-acquired pneumonia, viral illness such as COVID, influenza, RSV. Patient received a two-view chest x-ray rule out any other findings. Laboratory values including a phosphorus per her request. Patient was given IV fluids, nausea medicine. Patient will be reevaluated. All radiologic examinations were read, reviewed by the emergency department attending. From these reads, a plan of care will be put in place. Patient's blood pressure remains soft. Patient's laboratory values show a leukocytosis with a white blood count of 15.6, patient's hemoglobin is 11.3, this is low for the patient, patient baseline was 13 in November 2022. Patient's chemistries show acute kidney injury with a BUN of 44 with a creatinine of 3.33, lactic acid grossly at 6.9. Patient received 30 cc/kg IV bolus. Total bilirubin was 1.4 lipase negative. Patient started IV Zosyn. Patient did receive a CT scan chest abdomen pelvis that shows diffuse scattered bilateral pulmonary nodules are stable. Moderate left hydroureter caused by multiple distal ureteral stones. The largest measures 4 mm. Again patient started on IV Zosyn. We did speak to Dr. Lane, patient will be admitted here to the hospital. I will speak to the hospitalist. At this time, patient is currently being treated with sepsis, infected obstructing uropathy. Acute kidney injury. Patient stable for admission <Dr. Fatmata Brower, DO - Last Filed: 04/13/23 08:30> [facility] Narrative Medical decision making narrative: I have personally performed a face to face assessment of the patient and have reviewed the DOMINIQUE Note. I performed a substantive portion of the visit including all aspects of the following. My [place] findings include: History is patient is a 72-year-old male with history of coronary artery disease, hypertension, hyperlipidemia, prostate cancer, CKD 3 and sarcoidosis of the lung presenting with generalized weakness and generalized malaise. Patient had a vague abdominal discomfort for the past month but had not thought much of it. When asked he did state it hurts more in his lower abdomen/suprapubic region. Infectious workup is obtained as patient has reporting fever and chills. Blood pressure is maps above 60 but is soft in the emergency room. Patient is ill- appearing. He is found to have a leukocytosis of 15.6 with left shift and mild anemia with a hemoglobin 11.3 of uncertain etiology. Does not appear to be on any blood thinners. Platelets are normal. Creatinine significantly elevated at 3.33 which is above his baseline of 1.4-1.5. His lactate is also significantly elevated at 6.9. Flu, COVID and strep are negative. Patient given total of 3 L of fluid in the emergency room. CT of the chest abdomen pelvis is added on as there is no obvious source of infection on chest x-ray. Patient still not provided and able to provide a urine sample. CT of the kidneys that showed moderate left hydro nephro ureter caused by multiple distal ureteral stones the largest measuring 4 mm. I suspect this is a source. Is started on IV Zosyn, cultures are pending at this time. Will be admitted to the ICU given his blood pressures and significant lactic acidosis. Case is discussed admitting physician as well as urology, Dr. Lane, who plans to take the patient to the OR tomorrow for lithotripsy. Instructed to keep n.p.o. after midnight. As patient is fluid responsive does not require pressors at this time but will need close monitoring in the ICU. Plan of care and updates provided to patient as well as family. I was notified that patient did start having rigors and spiked a temperature of 104.3 about 45 minutes an hour after receiving the antibiotics. Is given a gram of Tylenol and will be transferred to the ICU. Other additions or changes: [None] History & Record Review Discussion w/independent historian: Patient and Family Lab Data Attestation: I reviewed the patient's lab results. Labs: Laboratory Results - last 24 hr 04/08/23 04/08/23 04/08/23 18:00 18:40 19:45 WBC 15.6 H RBC 3.57 L Hgb 11.3 L Hct 33.0 L MCV 92.4 MCH 31.7 MCHC 34.2 RDW Std Deviation 44.8 H RDW Coeff of Gaby 13.2 Plt Count 183 MPV 8.7 Immature Gran % (Auto) 0.900 Neut % (Auto) 96.0 H Lymph % (Auto) 2.2 L Dickey % (Auto) 0.8 Eos % (Auto) 0.0 Baso % (Auto) 0.1 Absolute Neuts (auto) 15.0 H Absolute Lymphs (auto) 0.35 L Nucleated RBC % 0 Differential Comment SCANNED Sodium 143 Potassium 3.9 Chloride 111 H Carbon Dioxide 20.0 L Anion Gap 12 BUN 44 H Creatinine 3.33 H Estim Creat Clear Calc 20.40 Est GFR (MDRD) Af Amer 24 L Est GFR (MDRD) Non-Af 19 L BUN/Creatinine Ratio 13.2 Glucose 118 H Lactic Acid 6.9 H* Calcium 9.3 Phosphorus 1.2 L Total Bilirubin 1.40 H AST 40 H ALT 35 Alkaline Phosphatase 116 Total Creatine Kinase 176 Total Protein 6.3 L Albumin 3.1 L Globulin 3.2 Albumin/Globulin Ratio 1.0 Lipase 21 Blood Type O POSITIVE Antibody Screen NEGATIVE Radiography Chest X-Ray - ED: 1 View, Read by ED Physician, Read by Radiologist and No Acute Disease Diagnostic Testing: Clinical Impression(s) from Imaging Studies Chest X-Ray 04/08/23 18:40 IMPRESSION: No radiographic evidence of acute cardiopulmonary disease. Electronically Signed: Melchor Oviedo MD at 18:57 EST , Chest/Abdomen/Pelvis CT 04/08/23 19:45 IMPRESSION: 1. Diffuse scattered bilateral pulmonary nodules are stable. 2. Moderate left hydronephroureter caused by multiple distal ureteral stones. The largest measures 4 mm. Electronically Signed: Melchor Oviedo MD at 20:48 EST Reading Location ID and State: [facility] / [place] , Service support , <LISETTE Swift - Last Filed: 04/08/23 21:20> Critical Care Time Critical Care Time: Yes Critical care time (excluding procedures): 30-74 minutes, Discussing w/Patient &/or Family/Resident Physician, Discussing w/Consultants and Performing Direct Patient Care at Bedside <Dr. Fatmata Brower DO - Last Filed: 04/13/23 08:30> Critical Care Time Critical care time (excluding procedures): 30-74 minutes (50) Discharge Plan Dx/Rx/DC Orders Clinical Impression: Acute kidney injury, Kidney stone, Hydroureter, Sepsis, Abdominal pain, Acidosis, lactic Disposition Disposition: Acute Care Hospital [facility] Discharge Date/Time: 04/08/23 22:55
--- OUTSIDE RECORDS SUMMARY | 2023-04-08 18:15 | XMS RPT_ITS | CCD ---
Author Name Unknown Address [address] [place] [address] Organization [facility] Care Team Providers Care Blocker And Polisher Name Role Phone SIMON Garrison, Tiffanie Garay Unavailable Unavailabl e TavallaeeShekhar Attending Unavailable TavallaeeShekhar Primary Care Unavailable TavallaeeShekhar Attending Unavailable TavallaeeShekhar Primary Care Unavailable TavallaeeShekhar Admitting Unavailable TavallaeeShekhar Attending Unavailable TavallaeeShekhar Primary Care Unavailable TavallaeeShekhar Attending Unavailable TavallaeeShekhar Primary Care Unavailable TavallaeeShekhar Attending Unavailable TavallaeeMarcelolShekhar M Primary Care Unavailable Bassett, Vanessa Unavailable Unavailable Tavallaee, Shekhar Unavailable Unavailable TavallaeeShekhar Unavailable Unavailable TavallaeeMeShekhar Jarrod Unavailable Unavailable Unavailable NataliaallaeeShekhar Primary Care Unav ailable TavallaeeShekhar Attending Unav ailable TavallaeeShekhar Referring Unav ailable TavallaeeShekhar Primary Care Unav ailable TavallaeeShekhar Attending Unav ailable TavallaeeShekhar Referring Unav ailable Tavallaee, Shekhar Wade Primary Care Unav ailable Tavallaee, Shekhar Wade Attending Unav ailable Tavallaee, Shekhar Wade Referring Unav ailable Tavallaee, Shekhar Wade Attending Unav ailable Tavallaee, Shekhar Wade Referring Unav ailable Tavallaee, Shekhar Wade Primary Care Unav ailable Tavallaee, Shekhar Wade Attending Unav ailable Tavallaee, Shekhar Wade Referring Unav ailable Tavallaee, Shekhar Wade Primary Care Unav ailable Tavallaee, Shekhar Wade Attending Unav ailable Tavallaee, Shekhar Wade Referring Unav ailable Tavallaee, Shekhar Wade Primary Care Unav ailable Shekhar Madrigal MD Primary Care Provider Shekhar Madrigal MD Unavailable Shekhar Madrigal MD Unavailable SHEKHAR MADRIGAL Attending Unavailable SHEKHAR MADRIGAL Primary Care Unavailable SHEKHAR MADRIGAL Attending Unavailable SHEKHAR MADRIGAL Primary Care Unavailable SHEKHAR MADRIGAL Attending Unavailable SHEKHAR MADRIGAL Primary Care Unavailable Allergies Allergy Classification Reported Allergen(s) Allergy Type Date of Onset Reaction(s) Facility (1 source) No Known Medication Allergies; Translations: [No Known Medication Allergies] Propensity to adverse reactions to drug (disorder) [facility] Repository Medications Current Medications Medication Drug Class(es) Dates Sig (Normalized) Sig (Original) amLODIPine 2.5 mg oral tablet (15 sources) Dihydropyridine Calcium Channel Genaro Start: 06-25-2019 amLODIPine (Norvasc) 2.5 mg tablet Take 1 tablet (2.5 mg) by mouth. TAKE 1 TABLET TWICE DAILY 0 06/25/2019 Active Completed/Discontinued Medications Medication Drug Class(es) Dates Sig (Normalized) Sig (Original) azithromycin 250 mg oral tablet (6 sources) Macrolide Antimicrobial Start: 06-21-2021 End: 12-12-2021 Azithromycin 250 MG Oral Tablet TAKE DIRECTED PER PACKAGE INSTRUCTIONS. Quantity: 1 Refills: 0 Ordered: 21-Jun-2021 Shekhar Madrigal MD Start : 21-Jun-2021 End : 12-Dec-2021 Complete Problems Active Problems Problem Classification Problem Date Documented Date Episodic/Chronic Acute and unspecified renal failure (18 sources) Chronic renal failure; Translations: [Chronic kidney disease, Stage III (moderate)] Onset: 04-16-2022 06-12-2022 Chronic Administrative/social admission (8 sources) Advance directive discussed with patient; Translations: [Other specified counseling] Episodic Anxiety disorders (17 sources) Mixed anxiety and depressive disorder; Translations: [Anxiety state, unspecified] Onset: 04-16-2022 04-16-2022 Chronic Cancer of prostate (17 sources) Malignant tumor of prostate; Translations: [Malignant neoplasm of prostate] Onset: 04-16-2022 06-12-2022 Chronic Chronic kidney disease (2 sources) Chronic kidney disease; Translations: [Chronic kidney disease, stage 3 unspecified (CMS/HCC)] Onset: 04-16-2022 Coronary atherosclerosis and other heart disease (20 sources) Old myocardial infarction; Translations: [Coronary arteriosclerosis] Onset: 04-16-2022 06-12-2022 Chronic Esophageal disorders (17 sources) Gastroesophageal reflux disease; Translations: [Esophageal reflux] Onset: 04-16-2022 04-16-2022 Chronic Essential hypertension (18 sources) Hypertensive disorder; Translations: [Unspecified essential hypertension] Onset: 04-16-2022 06-12-2022 Chronic Immunity disorders (5 sources) Sarcoidosis; Translations: [Sarcoidosis] Onset: 04-16-2022 04-16-2022 Chronic Nutritional deficiencies (20 sources) Vitamin D deficiency; Translations: [Unspecified vitamin D deficiency] Onset: 04-16-2022 06-12-2022 Chronic Other aftercare (2 sources) Other chcf (current) drug therapy; Translations: [Other emt intermediate (current) drug therapy] Onset: 12-11-2022 Episodic Other nervous system disorders (13 sources) Peripheral nerve disease ; Translations: [Unspecified hereditary and idiopathic peripheral neuropathy] Onset: 04-16-2022 04-16-2022 Chronic Other nutritional; endocrine; and metabolic disorders (17 sources) Hypophosphatemia; 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] Onset: 04-16-2022 04-16-2022 Chronic Screening and history of mental health and substance abuse codes (8 sources) Screening - NAD; Translations: [Screening for depression] Episodic Unclassified (1 source) No current problems or disability 03-12-2017 Viral infection (1 source) Disease caused by 2019-nCoV; Translations: [COVID-19] 03-08-2023 Episodic Viral infection (2 sources) COVID-19; Translations: [COVID-19] Onset: 03-08-2023 Past or Other Problems Problem Classification Problem Date Documented Da te Episodic/Chronic Calculus of urinary tract (17 sources) History of calculus of kidney; Translations: [Personal history of urinary calculi] Onset: 04-16-2022 04-16-2022 Episodic Cancer of prostate (3 sources) History of malignant neoplasm of prostate; Translations: [History of malignant neoplasm of prostate] Episodic Deficiency and other anemia (7 sources) Anemia; Translations: [Anemia, unspecified] Onset: 04-16-2022 Resolved: 06-12-2022 06-12-2022 Episodic Immunizations and screening for infectious disease (20 sources) Patient encounter status; Translations: [Other specified vaccination] Onset: 06-18-2018 04-16-2022 Episodic Results Test Name Value Interpretation Reference Range Facil ity Vital Signs Date Time Vital Sign Value Performing Clinician Jessica cuenca 06-12-2022 07:55-0400 Body height 177.8 cm Shekhar Madrigal MD Work Phone: [facility] 06-12-2022 07:55-0400 Body mass index (BMI) [Ratio] 24.25 kg/m2 Shekhar Madrigal MD Work Phone: [facility] 06-12-2022 07:55-0400 Body weight 76.66 kg Shekhar Madrigal MD Work Phone: [facility] 06-12-2022 07:55-0400 Diastolic blood pressure 68 mm[Hg] Shekhar Madrigal MD Work Phone: [facility] 06-12-2022 07:55-0400 Heart rate 60 /min Shekhar Madrigal MD Work Phone: [facility] 06-12-2022 07:55-0400 Systolic blood pressure 114 mm[Hg] Shekhar Madrigal MD Work Phone: [facility] 01-10-2022 16:41-0500 Body height 177.8 cm Shekharrenea Sternaee Work Phone: [facility] Work Phone: 01-10-2022 16:41-0500 Body mass index (BMI) [Ratio] 23.82 kg/m2 Shekharrenea Sternaee Work Phone: [facility] Work Phone: 01-10-2022 16:41-0500 Body surface area Derived from formula 1.93 m2 Shekharrenea Sternaee Work Phone: [facility] Work Phone: 01-10-2022 16:41-0500 Body weight 75.3 kg Shekharrenea Sternaee Work Phone: [facility] Work Phone: 01-10-2022 16:41-0500 Diastolic blood pressure 76 mm[Hg] Shekharrenea Sternaee Work Phone: [facility] Work Phone: 01-10-2022 16:41-0500 Heart rate 72 /min Shekhar Sternaee Work Phone: [facility] Work Phone: 01-10-2022 16:41-0500 Systolic blood pressure 126 mm[Hg] Shekhar Sternaee Work Phone: [facility] Work Phone: 01-04-2022 08:58-0500 Body height 177.8 cm Shekhar M Tavallaee Work Phone: [facility] Work Phone: 01-04-2022 08:58-0500 Body mass index (BMI) [Ratio] 24.11 kg/m2 Shekhar M Tavallaee Work Phone: [facility] Work Phone: 01-04-2022 08:58-0500 Body surface area Derived from formula 1.94 m2 Shekhar M Tavallaee Work Phone: [facility] Work Phone: 01-04-2022 08:58-0500 Body weight 76.2 kg Shekhar M Tavallaee Work Phone: [facility] Work Phone: 01-04-2022 08:58-0500 Diastolic blood pressure 79 mm[Hg] Shekhar M Tavallaee Work Phone: [facility] Work Phone: 01-04-2022 08:58-0500 Heart rate 69 /min Shekhar M Tavallaee Work Phone: [facility] Work Phone: 01-04-2022 08:58-0500 Systolic blood pressure 138 mm[Hg] Shekhar M Tavallaee Work Phone: [facility] Work Phone: 12-12-2021 08:01-0400 Body height 177.8 cm Shekhar M Tavallaee Work Phone: [facility] Work Phone: 12-12-2021 08:01-0400 Body mass index (BMI) [Ratio] 23.96 kg/m2 Shekhar M Tavallaee Work Phone: [facility] Work Phone: 12-12-2021 08:01-0400 Body surface area Derived from formula 1.93 m2 Shekhar Jarrod Tavallaee Work Phone: [facility] Work Phone: 12-12-2021 08:01-0400 Body weight 75.75 kg Shekhar Jarrod Tavallaee Work Phone: [facility] Work Phone: 12-12-2021 08:01-0400 Diastolic blood pressure 72 mm[Hg] Shekhar Jarrod Tavallaee Work Phone: [facility] Work Phone: 12-12-2021 08:01-0400 Heart rate 62 /min Shekhar Jarrod Fisherallaee Work Phone: [facility] Work Phone: 12-12-2021 08:01-0400 Systolic blood pressure 128 mm[Hg] Shekhar Jarrod Tavallaee Work Phone: [facility] Work Phone: 05-30-2021 07:59-0400 Body height 177.8 cm Shekhar Jarrod Fisherallaee Work Phone: [facility] Work Phone: 05-30-2021 07:59-0400 Body mass index (BMI) [Ratio] 24.89 kg/m2 Shekhar Jarrod Tavallaee Work Phone: [facility] Work Phone: 05-30-2021 07:59-0400 Body surface area Derived from formula 1.96 m2 Shekhar Jarrod Tavallaee Work Phone: [facility] Work Phone: 05-30-2021 07:59-0400 Body weight 78.7 kg Shekhar M Tavallaee Work Phone: [facility] Work Phone: 05-30-2021 07:59-0400 Diastolic blood pressure 78 mm[Hg] Shekhar Jarrod Tavallaee Work Phone: [facility] Work Phone: 05-30-2021 07:59-0400 Heart rate 68 /min Shekhar Jarrod Tavallaee Work Phone: [facility] Work Phone: 05-30-2021 07:59-0400 Systolic blood pressure 122 mm[Hg] Shekhar Jarrod Tavallaee Work Phone: [facility] Work Phone: 11-29-2020 08:03-0400 Body height 177.8 cm Shekharrenea Fisherallaee Work Phone: [facility] Work Phone: 11-29-2020 08:03-0400 Body mass index (BMI) [Ratio] 23.82 kg/m2 Shekharrenea Fihserallaee Work Phone: [facility] Work Phone: 11-29-2020 08:03-0400 Body surface area Derived from formula 1.93 m2 Shekhar Fisherallaee Work Phone: [facility] Work Phone: 11-29-2020 08:03-0400 Body weight 75.3 kg Shekhar Jarrod Fisherallaee Work Phone: [facility] Work Phone: 11-29-2020 08:03-0400 Diastolic blood pressure 78 mm[Hg] Shekhar Jarrod Tavallaee Work Phone: [facility] Work Phone: 11-29-2020 08:03-0400 Heart rate 66 /min Shekhar Madrigal Work Phone: [facility] Work Phone: 11-29-2020 08:03-0400 Systolic blood pressure 112 mm[Hg] Shekhar Madrigal Work Phone: [facility] Work Phone: Encounters Encounter Date Encounter Type Care Provider Facility Start: 03-08-2023 End: 03-08-2023 [facility] Start: 03-08-2023 End: 03-08-2023 Phys/qhp telephone evaluation 11-20 min Shekhar Madrigal MD Work Phone: [facility] Procedures Date Procedure Procedure Detail Performing Clinician Start: 12-11-2022 INFLUENZA, HIGH-DOSE SEASONAL. QUADRIVALENT, PRESERVATIVE FREE SHEKHAR MADRIGAL Start: 04-16-2022 H/O: surgery H/O prostatectomy Doreen Madrigal MD Work Phone: Start: 02-13-2020 Colonoscopy Shekhar davis MD Work Phone: Start: 02-13-2020 Colonoscopy Shekhar Madrigal Work Phone: Plan of Treatment Date Care Activity Detail Author Start: 02-12-2030 Screening for malignant neoplasm of colon [facility] Start: 05-24-2028 DTaP/Tdap/Td Vaccine s (3 - Td or Tdap) DTaP/Tdap/Td Vaccines (3 - Td or Tdap) [facility] Start: 06-18-2023 End: 06-18-2023 Patient encounter procedure 06/18/2023 3:00 PM EDT Office Visit [facility] [address] [place] [id number] Shekhar Madrigal MD [address] [place] [address] [facility] Start: 06-14-2023 Medicare Annual Wellness Visit Medicare Annual Wellness Visit (AWV) [facility] Start: 06-12-2022 End: 06-13-2023 25-hydroxyvitamin D3 [Mass/volume] in Serum or Plasma Vitamin D, Total Lab Routine Vitamin D deficiency Expected: 06/12/2022 (Approximate), Expires: 06/13/2023 [facility] Work Phone: Immunizations Immunization Date Immunization Notes Care Provider Fa cility 01-03-2023 Pneumococcal conjuga te vaccine, 20-valent (PREVNAR 20) Shekhar Madrigal MD Work Phone: [facility] Work Phone: 12-11-2022 Flu vaccine, quadrivalent, high-dose, preservative free, age 65y+ (FLUZONE) Shekhar Madrigal MD Work Phone: [facility] Work Phone: 06-12-2022 diphtheria, tetanus toxoids and acellular pertussis vaccine, unspecified formulation Shekhar Madrigal MD Work Phone: [facility] Work Phone: 06-12-2022 zoster vaccine-recombinant adjuvanted (Shingrix, PF,) 50 mcg/0.5 mL vaccine Shekhar Madrigal MD Work Phone: [facility] Work Phone: 06-12-2022 pneumoc 20-micaela conj- dip cr,PF, (Prevnar 20, PF,) 0.5 mL vaccine Shekhar Madrigal MD Work Phone: [facility] Work Phone: 12-12-2021 Fluzone High-Dose Quadrivalent 0.7 ML Intramuscular Suspension Prefilled Syringe; Translations: [Fluzone High-Dose Quadrivalent 0.7 ML Intramuscular Suspension Prefilled Syringe] Shekhar Madrigal Work Phone: [facility] Work Phone: Payers Date Payer Category Payer Medicare [employer] MEDICARE A NATHAN FLEMING MEDICARE [id number] 2021-Present [address] [place] [address] [id number] 2019 Private Health Insurance [id number] 2017 Private Health Insurance 1950 Unknown [id number] 17 1949 Unknown [id number] 17 1949 Unknown [id number] 17 1949 Unknown [id number] 17 1949 Unknown [id number] 17 1949 Unknown [id number] 56 1949 Unknown [id number] 56 1949 Unknown [id number] 56 1949 Unknown [id number] 56 1949 Unknown [id number] [id number] 56 1949 Unknown [id number] 56 1949 Unknown [id number] 244 1949 Unknown [id number] 244 1949 Unknown [id number] 244 Unknown [employer] Social History Date Type Detail Facility Assertion Tobacco smoking consumption unknown (finding) [facility] Work Phone: Start: 04-16-2022 End: 06-12-2022 Non-smoker Non-smoker [facility] Work Phone: Start: 04-16-2022 Tobacco smoking stat us NHIS Never smoked tobacco [facility] Work Phone: Start: 04-16-2022 Tobacco use and exposure Smokeless tobacco non-user [facility] Work Phone: Start: 06-12-2022 End: 03-08-2023 Alcohol intake Lifetime non-drinker (finding) [facility] Work Phone: Start: 04-16-2022 End: 06-12-2022 Tobacco use panel [facility] Work Phone: Start: 1950 Sex Assigned At Not on file [facility] Work Phone: Start: 06-02-2022 End: 06-12-2022 Exposure to SARS-CoV-2 (event) Not sure [facility] Start: 02-26-2023 End: 03-08-2023 Exposure to SARS-CoV-2 (event) Unable to assess [facility] Work Phone: Functional Status Date Assessment Result Facility NEGATED: Highlighted row Functional performance Functional status health issues are not documented Disease [facility] Work Phone: Mental Status Date Assessment Result Facility NEGATED: Highlighted row Cognitive function [Interpretation] Cognitive status health issues are not documented Disease [facility] Work Phone: History of Present illness Narrative 06-12-2022 Shekhar Madrigal MD - 06/12/2022 8:00 AM EDT Note Date & Type Note Facility 06-12-2022 History of Present illness Narrative Subjective Reason for Visit: Andrés Guevara is an 71 y.o. male here for a Medicare Wellness visit. Past Medical, Surgical, and Family History reviewed and updated in chart. Reviewed all medications by prescribing practitioner or clinical pharmacist (such as prescriptions, OTCs, herbal therapies and supplements) and documented in the medical record. FEELS FINE, NO COMPLANT Wellness exam Patient Care Team: Shekhar Madrigal MD as PCP - General Shekhar Madrigal MD as PCP - [employer] Medicare Advantage PCP Review of Systems Constitutional: Negative. Negative for chills and fever. HENT: Negative. Negative for congestion. Eyes: Negative. Negative for discharge. Respiratory: Negative. Negative for cough, shortness of breath and wheezing. Cardiovascular: Negative. Negative for chest pain, palpitations and leg swelling. Gastrointestinal: Negative. Negative for abdominal distention, abdominal pain, constipation, diarrhea, nausea and vomiting. Endocrine: Negative. Genitourinary: Negative. Negative for dysuria and urgency. Musculoskeletal: Negative. Negative for back pain, joint swelling and neck stiffness. Skin: Negative. Negative for rash. Allergic/Immunologic: Negative. Negative for immunocompromised state. Neurological: Negative. Negative for light-headedness, numbness and headaches. Hematological: Negative. Negative for adenopathy. Psychiatric/Behavioral: Negative. Negative for agitation, behavioral problems and confusion. All other systems reviewed and are negative. Objective Vitals: BP 114/68 (BP Location: Left arm, Patient Position: Sitting) Pulse 60 Ht 1.778 m (5' 10 ) Wt 76.7 kg (169 lb) BMI 24.25 kg/m Physical Exam Vitals reviewed. Constitutional: General: He is not in acute distress. Appearance: Normal appearance. HENT: Head: Normocephalic and atraumatic. Nose: Nose normal. Eyes: Conjunctiva/sclera: Conjunctivae normal. Pupils: Pupils are equal, round, and reactive to light. Neck: Vascular: No carotid bruit. Cardiovascular: Rate and Rhythm: Normal rate and regular rhythm. Pulses: Normal pulses. Heart sounds: No gallop. Pulmonary: Effort: Pulmonary effort is normal. No respiratory distress. Breath sounds: Normal breath sounds. No wheezing. Abdominal: General: Bowel sounds are normal. Palpations: Abdomen is soft. Tenderness: There is no abdominal tenderness. Musculoskeletal: General: Normal range of motion. Cervical back: Normal range of motion. No rigidity. Lymphadenopathy: Cervical: No cervical adenopathy. Skin: General: Skin is warm. Findings: No rash. Neurological: General: No focal deficit present. Mental Status: He is alert and oriented to person, place, and time. Psychiatric: Mood and Affect: Mood normal. Behavior: Behavior normal. Assessment/Plan Problem List Items Addressed This Visit Circulatory CAD (coronary artery disease) Relevant Orders Lipid Panel HTN (hypertension) Genitourinary Chronic kidney failure, stage 3 (moderate) (CMS/HCC) Relevant Orders Comprehensive Metabolic Panel CBC and Auto Differential Malignant neoplasm of prostate (CMS/HCC) Endocrine/Metabolic Vitamin D deficiency Relevant Orders Vitamin D, Total Other Visit Diagnoses Routine general medical examination at health care facility - Primary Relevant Medications diphth,pertus,acell,,tetanus (BoostRIX) 2.5-8-5 Lf-mcg-Lf/0.5mL injection zoster vaccine-recombinant adjuvanted (Shingrix, PF,) 50 mcg/0.5 mL vaccine pneumoc 20-micaela conj-dip cr,PF, (Prevnar 20, PF,) 0.5 mL vaccine Advanced Care Planing discussed, diagnosis , treatment and prognosis discussed with pt,pt has capacity to make own decision, pt has a living will, to bring a copy for the chart. AVOID NSAIDS INCREASE FLUID INTAKE MONITOR BP GOAL BP LOWER THAN 130/80 LOW SALT EXERCISE DAILY MDM 1) COMPLEXITY: MORE THAN 1 STABLE CHRONIC CONDITION ADDRESSED 2)DATA: TESTS INTERPRETED AND OR ORDERED, TOOK INDEPENDENT HISTORY OR RECORDS REVIEWED 3)RISK: MODERATE RISK DUE TO NATURE OF MEDICAL CONDITIONS/COMORBIDITY OR MEDICATIONS ORDERED OR SURGICAL OR PROCEDURE REFERRAL, . Fu 6 mo bw documented in this encounter [facility] Work Phone: Evaluation note Note Date & Type Note Facility documented in this encounter [facility] Work Phone: Evaluation note Note Date & Type Note Facility documented in this encounter [facility] Work Phone: History of Present illness Narrative Note Date & Type Note Facility History of Present illness Narrative PT C/O left wrist pain no numbness no tinglingFOR a couple of monthSEVERITY: mildCHARACTERISTIC: chronicEXACERBATION FACTOR: noneRELIEVING FACTOR: noneASSOCIATED SYMPTOMS: nonePRIOR [place]: race [facility] Work Phone: History of Present illness Narrative Note Date & Type Note Facility History of Present illness Narrative The patient is being seen for the subsequent annual wellness visit.Past Medical, Surgical and Family History: reviewed and updated in chart.Medications and Supplements: Review of all medications by a prescribing practitioner or clinical pharmacist (such as prescriptions, OTCs, herbal therapies and supplements) documented in the medical record.No, the patient is not using opioids.Patient Self Assessment of Health Status: excellent.Tobacco use: Non-UserAlcohol use: Non-UserIllicit drug use: Non-UserCurrent diet: well balanced diet.Exercise Frequency: regularly.Depression/Suicide Screening: .During the past 2 weeks, the patient has not felt down, depressed or hopeless.During the past 2 weeks, the patient has not felt little interest or pleasure in doing things.Hearing Impairment: none.Cognitive Impairment: No cognitive impairment observed.Bathing: performs independently.Dressing: performs independently.Walking: performs independently.Managing Finances: performs independently.Shopping: performs independently.Managing Medications: performs independently.Housework / Basic Home Maintenance: performs independently.Falls Risk Screening:. ANDRÉS has not fallen in the last 6 months.Home safety risk factors: none.Advance directives:. Advance Care Planning discussed and documented in the medical record, patient did not wish or was not able to name a surrogate decision maker or provide an advance care plan.Additional Information: BRING A COPY.HERE FOR F/U WITH LABSLBP , CHRONIC FOR YEARS OFF AND ON, MILD , DOES NOT HAVE TO TAKE ANY THING USUALLY, ICE WORKSNUMBNESS AND TINGLING IN FEET, MILD , NOT INTRESTED TO TAKE MEDS FOR ITWELLNESS EXAM [facility] Work Phone: History of Present illness Narrative Note Date & Type Note Facility History of Present illness Narrative HERE FOR F/U WITH [facility], DID NOT HAVE PNEUMONIA JUST SCAR OF SARCOIDOSIS [facility] Work Phone: History of Present illness Narrative Note Date & Type Note Facility History of Present illness Narrative PT C/O LBP WITH RADIATION TO THE RIGHT LE, AFTER RACKINGFOR 5 DAYSSEVERITY: MODERATECHARACTERISTIC: ACUTEEXACERBATION FACTOR: EXERTIONRELIEVING FACTOR: RESTASSOCIATED SYMPTOMS:TINGLING RIGHT LEPRIOR TX: TYLRNOL, ICEING [facility] Work Phone: History of Present illness Narrative Note Date & Type Note Facility History of Present illness Narrative HERE FOR F/U FEELS BETTER [facility] Work Phone: History of Present illness Narrative Shekhar Madrigal MD - 03/08/2023 4:00 PM EST Note Date & Type Note Facility History of Present illness Narrative Subjective Patient ID: Andrés Guevara is a 72 y.o. male who presents for Follow-up (Pt covid positive today has cough some times a minor headache was taking airborne ). Phone visit Cough a couple of days, covid test positive Some nasal congestion and sneezing No SOB No fever no chills Review of Systems Objective Physical Exam There were no vitals taken for this visit. PSA external Date/Time Value Ref Range Status 01/05/2023 12:54 PM 0.01 ng/mL Final Assessment/Plan Problem List Items Addressed This Visit None Visit Diagnoses COVID-19 - Primary PT. WAS INSTRUCTED TO INCREASE FLUID INTAKE ,TAKE TYLENOL 650 MG PO Q6H/PRN FOR PAIN OR FEVER AND TAKE ROBITUSSIN OTC 2 TSP Q 6H/PRN FOR COUGH. Self q. Very mild case , discussed paxlovid, but since it is a very mild erika ewill just watch Call me if worse documented in this encounter [facility] Work Phone: Summary Purpose Family History No Family History Records Found Mother Name Dates Details Family history of Alzheimer' s disease(V17.2, Z82.0) Status:Active Father Name Dates Details Family history of malignant neoplasm of prostate(V16.42, Z80.42) Status:Active Family history of malignant neoplasm of skin(V16.8, Z80.8) Status:Active Sister Name Dates Details Family history of malignant neoplasm of skin(V16.8, Z80.8) Status:Active Brother Name Dates Details Family history of malignant neoplasm of prostate(V16.42, Z80.42) Status:Active Mother Name Dates Details Family history of Alzheimer' s disease(V17.2, Z82.0) Status:Active Father Name Dates Details Family history of malignant neoplasm of prostate(V16.42, Z80.42) Status:Active Family history of malignant neoplasm of skin(V16.8, Z80.8) Status:Active Sister Name Dates Details Family history of malignant neoplasm of skin(V16.8, Z80.8) Status:Active Brother Name Dates Details Family history of malignant neoplasm of prostate(V16.42, Z80.42) Status:Active Mother Name Dates Details Family history of Alzheimer' s disease(V17.2, Z82.0) Status:Active Father Name Dates Details Family history of malignant neoplasm of prostate(V16.42, Z80.42) Status:Active Family history of malignant neoplasm of skin(V16.8, Z80.8) Status:Active Sister Name Dates Details Family history of malignant neoplasm of skin(V16.8, Z80.8) Status:Active Brother Name Dates Details Family history of malignant neoplasm of prostate(V16.42, Z80.42) Status:Active Unknown Family Member Name Dates Details Family history of Alzheimer' s disease: Mother(V17.2, Z82.0) Status:Active Family history of malignant neoplasm of prostate: Father, Brother(V16.42, Z80.42) Status:Active Family history of malignant neoplasm of skin: Father, Sister(V16.8, Z80.8) Status:Active Unknown Family Member Name Dates Details Family history of Alzheimer' s disease: Mother(V17.2, Z82.0) Status:Active Family history of malignant neoplasm of prostate: Father, Brother(V16.42, Z80.42) Status:Active Family history of malignant neoplasm of skin: Father, Sister(V16.8, Z80.8) Status:Active Unknown Family Member Name Dates Details Family history of Alzheimer' s disease: Mother(V17.2, Z82.0) Status:Active Family history of malignant neoplasm of prostate: Father, Brother(V16.42, Z80.42) Status:Active Family history of malignant neoplasm of skin: Father, Sister(V16.8, Z80.8) Status:Active Unknown Family Member Name Dates Details Family history of Alzheimer' s disease: Mother(V17.2, Z82.0) Status:Active Family history of malignant neoplasm of prostate: Father, Brother(V16.42, Z80.42) Status:Active Family history of malignant neoplasm of skin: Father, Sister(V16.8, Z80.8) Status:Active Unknown Family Member Name Dates Details Family history of Alzheimer' s disease: Mother(V17.2, Z82.0) Status:Active Family history of malignant neoplasm of prostate: Father, Brother(V16.42, Z80.42) Status:Active Family history of malignant neoplasm of skin: Father, Sister(V16.8, Z80.8) Status:Active Unknown Family Member Name Dates Details Family history of malignant neoplasm of skin: Father, Sister(V16.8, Z80.8) Status:Active Family history of malignant neoplasm of prostate: Father, Brother(V16.42, Z80.42) Status:Active Family history of Alzheimer' s disease: Mother(V17.2, Z82.0) Status:Active Unknown Family Member Name Dates Details Family history of malignant neoplasm of skin: Father, Sister(V16.8, Z80.8) Status:Active Family history of malignant neoplasm of prostate: Father, Brother(V16.42, Z80.42) Status:Active Family history of Alzheimer' s disease: Mother(V17.2, Z82.0) Status:Active Unknown Family Member Name Dates Details Family history of malignant neoplasm of skin: Father, Sister(V16.8, Z80.8) Status:Active Family history of malignant neoplasm of prostate: Father, Brother(V16.42, Z80.42) Status:Active Family history of Alzheimer' s disease: Mother(V17.2, Z82.0) Status:Active Unknown Family Member Name Dates Details Family history of Alzheimer' s disease: Mother(V17.2, Z82.0) Status:Active Family history of malignant neoplasm of prostate: Father, Brother(V16.42, Z80.42) Status:Active Family history of malignant neoplasm of skin: Father, Sister(V16.8, Z80.8) Status:Active Unknown Family Member Name Dates Details Family history of malignant neoplasm of prostate: Father, Brother(V16.42, Z80.42) Status:Active Family history of malignant neoplasm of skin: Father, Sister(V16.8, Z80.8) Status:Active Family history of Alzheimer' s disease: Mother(V17.2, Z82.0) Status:Active Unknown Family Member Name Dates Details Family history of Alzheimer' s disease: Mother(V17.2, Z82.0) Status:Active Family history of malignant neoplasm of prostate: Father, Brother(V16.42, Z80.42) Status:Active Family history of malignant neoplasm of skin: Father, Sister(V16.8, Z80.8) Status:Active Unknown Family Member Name Dates Details Family history of malignant neoplasm of skin: Father, Sister(V16.8, Z80.8) Status:Active Family history of malignant neoplasm of prostate: Father, Brother(V16.42, Z80.42) Status:Active Family history of Alzheimer' s disease: Mother(V17.2, Z82.0) Status:Active Advance Directives No Advanced Directives Records FoundNo Advanced Directives Records FoundNo Advanced Directives Records FoundNo Advanced Directives Records Found Chief Complaint 6 MO F/U WITH LABS. C/O NEUROPATHY AND LT WRIST PAIN6 [facility] F/U LABS-[facility]; C/O LOW BACK PAIN AND B/L FOOT PAIN AND TINGLING AT TIMES6 MO FU LAB TODAY PT WAS SEEN IN ER FOR INDIGESTION BUT EVERYTHING CHECKED OUT OKC/O LOW BACK PAIN RADIATING INTO RT LEG.PT HERE TODAY TO F/U AFTER XRAY. PT STATES HE IS FEELING BETTER Additional Source Comments (unrecognized sect ion and content) No Status Records FoundNo Status Records FoundNo Status Records FoundNo Status Records Found INFORMATION SOURCE (unrecogn ized section and content) DATE CREATED AUTHOR AUTHOR'S ORGANIZ ATION 01/12/2022 [facility] DATE CREATED AUTHOR AUTHOR'S ORGANIZ ATION 01/12/2022 [employer] DATE CREATED AUTHOR AUTHOR'S ORGANROMMEL ATION 03/11/2023 [facility] Reason for Visit (unrecogniz ed section and content) Reason Comments Follow-up Pt covid positive to day has cough some times a minor headache was taking airborne Care Teams (unrecognized sec tion and content) [employer] Relationship Specialty Start Date End Date Shekhar Madrigal MD [address] [place] [address] PCP - General 04/03/19 Shekhar Madrigal MD [address] [place] [address] PCP - [employer]age PCP 02/26/21 FOR RECORDS PERTAINING TO PATIENTS WHO ARE OR HAVE BEEN ENROLLED IN A CHEMICAL DEPENDENCY/SUBSTANCEABUSE PROGRAM, SOME INFORMATION MAY BE OMITTED. This clinical summary was aggregated from multiple sources. Caution should be exercised in using it in the provision of clinical care. This summary normalizes information from multiple sources, and as a consequence, information in this document may materially change the coding, format and clinical context of patient data. In addition, data may be omitted in some cases. CLINICAL DECISIONS SHOULD BE BASED ON THE PRIMARY CLINICAL RECORDS. [facility] [employer] provides no warranty or guarantee of the accuracy or completeness of information in this document.
[2023-04-08 18:17] LABS: Absolute Lymphocyte Count 0.35 X10^3/uL (0.83-4.51); Basophil# 0.02 X10^3/uL; Basophil% 0.1 % (0-1); Hemoglobin 11.3 g/dL (13.0-16.5); Lymphocyte # 0.35 X10^3/ul (0.83-4.51); Lymphocyte % 2.2 % (19-41); Mean Corp Hgb Conc 34.2 g/dL (32-36); Mean Corpuscular Hgb 31.7 pg (27.0-32.0); Mean Corpuscular Volume 92.4 fL (80-94); Mean Platelet Vol. 8.7 fl (6.2-12.0); Monocyte# 0.12 X10^3/uL; Monocyte% 0.8 % (0-10); NRBC Flagged by Analyzer 0 % (0-5); Neutrophil # 14.98 X10^3/uL (2.7-7.7); POSITIVE DIFFERENTIAL YES; POSITIVE MORPHOLOGY YES; Platelet Count 183 K/mm3 (150-450); RBC Distribution Width CV 13.2 % (11.6-14.6); RBC Distribution Width SD 44.8 fl (35.1-43.9); Red Blood Count 3.57 M/mm3 (4.6-6.2); White Blood Count 15.6 K/mm3 (4.4-11.0)
[2023-04-08 18:19] LABS: Differential Indicated SCAN CRITERIA MET
[2023-04-08] MEDS: Ondansetron 4 MG/2 ML Vial IV (18:25)
[2023-04-08] MEDS: 0.9% Normal Saline (1000mL) 1,000 ML 1000 ML IV (18:25)
[2023-04-08 18:35] LABS: AST(SGOT) 40 U/L (15-37); Alanine Aminotransfer ALT/SGPT 35 U/L (16-61); Albumin, Serum 3.1 g/dL (3.2-5.0); Alkaline Phosphatase 116 U/L (45-117); Anion Gap 12 (5-15); BUN 44 mg/dL (7-18); BUN/Creat Ratio 13.2 RATIO (10-20); Calcium,Total 9.3 mg/dL (8.5-10.1); Chloride 111 mmol/L (98-107); Creatinine, Serum 3.33 mg/dL (0.70-1.30); EST Glomerular Filtration Rate 19 mL/min (>60); Est Glom Filt Rate - Afr Amer 24 mL/min (>60); Globulin 3.2 g/dL (2.2-4.2); Glucose 118 mg/dL (74-106); Lipase 21 U/L (13-75); Phosphorus 1.2 mg/dL (2.5-4.9); Potassium 3.9 mmol/L (3.5-5.1); Protein, Total 6.3 g/dL (6.4-8.2); Sodium Level 143 mmol/L (136-145)
--- NOTE | 2023-04-08 18:40 | RAD_ITS ---
EXAM: XR CHEST, 2 VIEWS CLINICAL INDICATION: cough TECHNIQUE: Frontal and lateral views of the chest. COMPARISON: 12.08.21 FINDINGS: LUNGS AND PLEURAL SPACES: Unremarkable. No consolidation or edema. No pneumothorax. No effusion. HEART: Unremarkable. Cardiac silhouette not enlarged. MEDIASTINUM: Central airways and mediastinal contour are unremarkable. BONES/JOINTS: Unremarkable. No acute fracture. SOFT TISSUES: Unremarkable. RAD/Chest PA and Lateral IMPRESSION: No radiographic evidence of acute cardiopulmonary disease. Electronically Signed: Melchor Oviedo MD at 18:57 EST ,
[2023-04-08 18:47] LABS: Differential Comment SCANNED
[2023-04-08] MEDS: 0.9% Normal Saline (1000mL) 1,000 ML 999 ML IV ×3 (18:56→23:00)
[2023-04-08 19:41] LABS: Lactic Acid 6.9 mmol/L (0.4-1.9)
--- NOTE | 2023-04-08 19:45 | CT_ITS ---
EXAM: CT CHEST, ABDOMEN AND PELVIS WITHOUT INTRAVENOUS CONTRAST CLINICAL INDICATION: lactic sob, weakness x 3 days, fever, hx ckd, htn, prostate ca, heart surg TECHNIQUE: Helically acquired images were obtained of the chest, abdomen and pelvis without intravenous contrast. This CT exam was performed using one or more of the following dose reduction techniques: automated exposure control, adjustment of the mA and/or kV according to patient size, and/or use of iterative reconstruction technique. RADIATION DOSE: CTDIvol = 8.44 mGy, DLP = 1024.05 mGy-cm COMPARISON: 04.19.22 ct chest FINDINGS: CHEST: LUNGS AND PLEURAL SPACES: There is no pneumothorax. There is no demonstrated pleural abnormality. Diffuse scattered bilateral pulmonary nodules are stable. HEART: There are calcifications of the coronary arteries. Heart size is normal. No pericardial effusion. MEDIASTINUM: Multiple stable mediastinal lymph nodes. Esophagus is unremarkable. No hiatal hernia. THYROID: Unremarkable. No thyroid lesions. ABDOMEN: LIVER: Normal liver. GALLBLADDER AND BILE DUCTS: Unremarkable. No calcified gallstones. No gallbladder distention or wall edema. No intra- or extrahepatic biliary ductal dilation. Normal gallbladder and extrahepatic biliary system. PANCREAS: Unremarkable. No focal cystic mass. Normal pancreas. SPLEEN: Unremarkable. Normal spleen. ADRENALS: Unremarkable. Normal bilateral adrenal glands. KIDNEYS AND URETERS: Non obstructive 2 mm right renal parenchymal stones. Non obstructive 2 mm left renal parenchymal stones. Bilateral chronic appearing perinephric inflammatory stranding. Moderate left hydronephroureter caused by multiple distal ureteral stones. The largest measures [address] Stein[address] is noted on the left. Ureteral calculi are forming a column of stone fragments that blocks the ureter. Normal renal size and position. STOMACH AND BOWEL: Unremarkable. No stomach or bowel distention. No focal inflammatory change. Normal visualized stomach. Normal small intestine. Normal colon. PELVIS: APPENDIX: The appendix is visualized and appears normal. BLADDER: Unremarkable. Normal urinary bladder. REPRODUCTIVE: Unremarkable as visualized. No mass. CHEST, ABDOMEN and PELVIS: INTRAPERITONEAL SPACE: Unremarkable. No ascites or other fluid collection. No free air. BONES/JOINTS: There are degenerative changes of the shoulders. There are multi-level degenerative changes of the thoracic spine. There are bilateral pars articularis defects at L5-S1. There is bilateral neural foraminal stenosis at L4-5 and L5-S1. No suspicious lytic or blastic abnormality. SOFT TISSUES: There is an umbilical hernia containing fat. VASCULATURE: There is atherosclerotic calcification of the aortic arch with tortuosity and elongation of the aortic arch and descending thoracic aorta. There are calcifications of the abdominal aorta. This is consistent for atherosclerotic disease. There is no abdominal aortic aneurysm. Normal pulmonary arteries. LYMPH NODES: See above. CT/CT Chest, Abd, Pelvis WO Cont IMPRESSION: 1. Diffuse scattered bilateral pulmonary nodules are stable. 2. Moderate left hydronephroureter caused by multiple distal ureteral stones. The largest measures 4 mm. Electronically Signed: Melchor Oviedo MD at 20:48 EST ,
--- NOTE | 2023-04-08 21:17 | CON.PCM.UR_ITS ---
Assessment & Plan Assessment/Plan (1) Sepsis associated hypotension: HPI Consult Data Date of Consult: 04/08/23 HPI Narrative Reason for Consultation: sepsis w left ureteral stone HPI Narrative: ANDRÉS GUEVARA, is a 72 M who presents to ER w sonja and several obstructing stone in the left ureter, admitted to ICU add on tomorrow for cysto left st3nt placement HIRAM in Am once stabalized. [facility] Medical History Atherosclerosis of coronary artery of [place] heart without angina pectoris Calculus of left kidney Essential (primary) hypertension GERD (gastroesophageal reflux disease) History of back problems History of non-ST elevation myocardial infarction (NSTEMI) (05/22/15) Hyperlipidemia Myocardial infarct Neuralgia of groin Nonrheumatic mitral (valve) insufficiency Prostate cancer Right inguinal hernia 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 Home Medications aspirin 81 mg chewable tablet 81 mg PO DAILY@0800 09/18/18 [History Last Taken Unknown] famotidine 20 mg tablet (Acid Specimen Collector (famotidine)) 20 mg PO QHS gerd 04/11/19 [History Last Taken Unknown] ascorbate calcium (vitamin C) 500 mg tablet 500 mg PO DAILY 07/01/19 [History Last Taken Unknown] multivitamin-ferrous fumarate-folic acid 18 mg-400 mcg tablet (Centrum Complete) 1 tab PO QHS 07/01/19 [History Last Taken Unknown] ergocalciferol (vitamin D2) 1,250 mcg (50,000 unit) capsule (Vitamin D2) 1,250 mcg PO Q2W 10/07/19 [History Last Taken Unknown] losartan 100 mg tablet 100 mg PO DAILY htn #90 tabs 04/25/22 [Rx Last Taken Unknown] atorvastatin 40 mg tablet 40 mg PO .qod #45 tabs 08/17/22 [Rx Last Taken Unknown] clopidogrel 75 mg tablet 75 mg PO DAILY #90 tabs 08/30/22 [Rx Last Taken Unknown] amlodipine 2.5 mg tablet 2.5 mg PO BID #180 tabs 09/15/22 [Rx Last Taken Unknown] Allergy/AdvReac Type Severity Reaction Status Date / Time No Known Allergies Allergy Verified 04/08/23 17:12 Family History Father Hypertension Surgical History H/O shoulder surgery History of cataract surgery History of colonoscopy (2011) History of coronary artery stent placement (05/22/15) History of extraction of renal calculus History of inguinal herniorrhaphy (07/09/19) History of prostatectomy Social History Smoking Status: Never smoker alcohol intake: never substance use type: does not use caffeine: Yes Type: carbonated beverages Number of servings: 1 what type of physical activity do you participate in: walking and bicycling frequency: daily duration: 60-90 minutes/day seatbelt use: always do you feel safe at home: Yes Physical Exam Const alert and oriented x3 General Appearance: cooperative HEENT normocephalic and head/scalp atraumatic Eyes PERRL and EOMs intact bilaterally Neck supple, no JVD and no carotid bruits Resp normal respiratory effort, normal air movement and clear to auscultation bilaterally Cardio regular rate and no murmurs GI normal to inspection, nondistended, normoactive bowel sounds and soft to palpation Extremity normal capillary refill General Extremity: no tenderness to palpation of joints or extremities; Negative for edema Skin no rashes or lesions noted and no wounds General Skin Exam: no breakdown Neuro CN's II-XII intact bilaterally Psych affect normal Appearance: appropriate Lab / Micro Data 04/08/23 18:00 04/08/23 18:00 Labs: Laboratory Results - last 24 hr 04/08/23 18:00: WBC 15.6 H, RBC 3.57 L, Hgb 11.3 L, Hct 33.0 L, MCV 92.4, MCH 31.7, MCHC 34.2, RDW Std Deviation 44.8 H, RDW Coeff of Gaby 13.2, Plt Count 183, MPV 8.7, Immature Gran % (Auto) 0.900, Neut % (Auto) 96.0 H, Lymph % (Auto) 2.2 L, Tillman % (Auto) 0.8, Eos % (Auto) 0.0, Baso % (Auto) 0.1, Absolute Neuts (auto) 15.0 H, Absolute Lymphs (auto) 0.35 L, Nucleated RBC % 0, Differential Comment SCANNED, Sodium 143, Potassium 3.9, Chloride 111 H, Carbon Dioxide 20.0 L, Anion Gap 12, BUN 44 H, Creatinine 3.33 H, Estim Creat Clear Calc 20.40, Est GFR (MDRD) Af Amer 24 L, Est GFR (MDRD) Non-Af 19 L, BUN/Creatinine Ratio 13.2, Glucose 118 H, Calcium 9.3, Phosphorus 1.2 L, Total Bilirubin 1.40 H, AST 40 H, ALT 35, Alkaline Phosphatase 116, Total Protein 6.3 L, Albumin 3.1 L, Globulin 3.2, Albumin/Globulin Ratio 1.0, Lipase 21 04/08/23 18:40: Lactic Acid 6.9 H* 04/08/23 19:45: Blood Type O POSITIVE, Antibody Screen NEGATIVE Micro: Microbiology 04/08/23 18:40 Stool Stool Occult Blood (ALFONSO) - Final Occult Blood Positive 04/08/23 18:30 Mucosa - Nose SARS-CoV-2, Influenza & RSV (PCR) - Final Imaging Radiology Impression Chest X-Ray 04/08/23 18:40 IMPRESSION: No radiographic evidence of acute cardiopulmonary disease. Electronically Signed: Melchor Oviedo MD at 18:57 EST , Chest/Abdomen/Pelvis CT 04/08/23 19:45 IMPRESSION: 1. Diffuse scattered bilateral pulmonary nodules are stable. 2. Moderate left hydronephroureter caused by multiple distal ureteral stones. The largest measures 4 mm. Electronically Signed: Melchor Oviedo MD at 20:48 EST ,
[2023-04-08] MEDS: Piperacil/Tazobactam 3.375 GM in 0.9% Normal Saline (50mL MB+) 50 ML IV (21:26)
--- NOTE | 2023-04-08 21:31 | HP.PCM.HOS_ITS ---
[facility] - General General Date of Admission: 04/08/23 Date of Service: 04/08/23 Chief Complaint: Left lower quadrant abdominal pain for about 6 to 7 days. High-grade fever, 102.4 Fahrenheit, vomiting. HPI Narrative ANDRÉS GUEVARA, is a 72 M with history of kidney stone in the past came to ED for high-grade fever at home 101.8 Fahrenheit, 102.4 Fahrenheit, vomiting total 3 times followed by dry heaving along with left pain as intermittent abdominal pain for 6 days. He described LLQ abdominal pain as intermittent, not periodic, colicky, sometimes as high 8-9/10 intensity progressed over last 2 to 3 days. Patient also has history of prostate cancer with history of prostatectomy. His urologist is Dr. Lane. In ED, vitals shows fever 104.3 Fahrenheit, tachypnea, tachycardia, low blood pressure 74/69, 89/52. Patient had chest abdomen pelvis CT which shows moderate left hydronephroureter caused by multiple distal ureteric stones largest 4 mm. ED physician discussed with urologist and plan for cystoscopy and stent tomorrow morning. Patient is started on IV ceftriaxone and sepsis protocol. [facility] Medical History Atherosclerosis of coronary artery of [place] heart without angina pectoris Calculus of left kidney Essential (primary) hypertension GERD (gastroesophageal reflux disease) History of back problems History of non-ST elevation myocardial infarction (NSTEMI) (05/22/15) Hyperlipidemia Myocardial infarct Neuralgia of groin Nonrheumatic mitral (valve) insufficiency Prostate cancer Right inguinal hernia 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 Home Medications aspirin 81 mg chewable tablet 81 mg PO DAILY@0800 09/18/18 [History Last Taken Unknown] famotidine 20 mg tablet (Acid Crew Scheduler (famotidine)) 20 mg PO QHS gerd 04/11/19 [History Last Taken Unknown] ascorbate calcium (vitamin C) 500 mg tablet 500 mg PO DAILY 07/01/19 [History Last Taken Unknown] multivitamin-ferrous fumarate-folic acid 18 mg-400 mcg tablet (Centrum Complete) 1 tab PO QHS 07/01/19 [History Last Taken Unknown] ergocalciferol (vitamin D2) 1,250 mcg (50,000 unit) capsule (Vitamin D2) 1,250 mcg PO Q2W 10/07/19 [History Last Taken Unknown] losartan 100 mg tablet 100 mg PO DAILY htn #90 tabs 04/25/22 [Rx Last Taken Unknown] atorvastatin 40 mg tablet 40 mg PO .qod #45 tabs 08/17/22 [Rx Last Taken Unknown] clopidogrel 75 mg tablet 75 mg PO DAILY #90 tabs 08/30/22 [Rx Last Taken Unknown] amlodipine 2.5 mg tablet 2.5 mg PO BID #180 tabs 09/15/22 [Rx Last Taken Unknown] Allergy/AdvReac Type Severity Reaction Status Date / Time No Known Allergies Allergy Verified 04/08/23 17:12 Family History Father Hypertension Surgical History H/O shoulder surgery History of cataract surgery History of colonoscopy (2011) History of coronary artery stent placement (05/22/15) History of extraction of renal calculus History of inguinal herniorrhaphy (07/09/19) History of prostatectomy Social History Smoking Status: Never smoker alcohol intake: never substance use type: does not use caffeine: Yes Type: carbonated beverages Number of servings: 1 what type of physical activity do you participate in: walking and bicycling frequency: daily duration: 60-90 minutes/day seatbelt use: always do you feel safe at home: Yes ROS ROS Narrative Constitutional: Fever, shivering, cold. Generalized shortness of breath. HEENT: Reports systems reviewed and no addt'l complaints, except as documented Respiratory/Chest: History of sarcoidosis. Shortness of breath/dyspnea at rest. CVS: No chest pain or pressure. Gastrointestinal: Vomiting with dry heaving. No GI bleed. Genitourinary: Denies burning urination. Has chronic incontinence status post prostatectomy. Abdominal pain as described in HPI Musculoskeletal: Denies acute joint pain or limited range of motion. No acute injury Neurologic: Denies seizure-like symptoms. skin: No ulcer. No rash Endocrinology: Reports systems reviewed and no addt'l complaints, except as documented Hematologic/Lymphatic: Reports systems reviewed and no addt'l complaints, except as documented Rest 14 ROS are negative except as mentioned in HPI Vital Signs Vital Signs Vital Signs: 04/08/23 17:11 04/08/23 18:35 04/08/23 20:21 Temperature 97.9 F 97.9 F Temperature Source Temporal Oral Pulse Rate 89 89 80 Respiratory Rate 14 14 17 Blood Pressure 89/52 L 74/69 L 96/57 L Blood Pressure Mean 64 70 70 Pulse Ox 97 97 94 Oxygen Delivery Method Room Air Room Air Room Air Weight Weight: 161 lb 9 oz Body Mass Index (BMI) 23.1 Results Lab / Micro Data 04/08/23 18:00 04/08/23 18:00 Labs: Laboratory Results - last 24 hr 04/08/23 18:00: WBC 15.6 H, RBC 3.57 L, Hgb 11.3 L, Hct 33.0 L, MCV 92.4, MCH 31.7, MCHC 34.2, RDW Std Deviation 44.8 H, RDW Coeff of Gaby 13.2, Plt Count 183, MPV 8.7, Immature Gran % (Auto) 0.900, Neut % (Auto) 96.0 H, Lymph % (Auto) 2.2 L, Beadle % (Auto) 0.8, Eos % (Auto) 0.0, Baso % (Auto) 0.1, Absolute Neuts (auto) 15.0 H, Absolute Lymphs (auto) 0.35 L, Nucleated RBC % 0, Differential Comment S CANNED, Sodium 143, Potassium 3.9, Chloride 111 H, Carbon Dioxide 20.0 L, Anion Gap 12, BUN 44 H, Creatinine 3.33 H, Estim Creat Clear Calc 20.40, Est GFR (MDRD) Af Amer 24 L, Est GFR (MDRD) Non-Af 19 L, BUN/Creatinine Ratio 13.2, Glucose 118 H, Calcium 9.3, Phosphorus 1.2 L, Total Bilirubin 1.40 H, AST 40 H, ALT 35, Alkaline Phosphatase 116, Total Protein 6.3 L, Albumin 3.1 L, Globulin 3.2, Albumin/Globulin Ratio 1.0, Lipase 21 04/08/23 18:40: Lactic Acid 6.9 H* 04/08/23 19:45: Blood Type O POSITIVE, Antibody Screen NEGATIVE Micro: Microbiology 04/08/23 18:40 Stool Stool Occult Blood (ALFONSO) - Final Occult Blood Positive 04/08/23 18:30 Mucosa - Nose SARS-CoV-2, Influenza & RSV (PCR) - Final Imaging Radiology Impression Chest X-Ray 04/08/23 18:40 IMPRESSION: No radiographic evidence of acute cardiopulmonary disease. Electronically Signed: Melchor Oviedo MD at 18:57 EST , Chest/Abdomen/Pelvis CT 04/08/23 19:45 IMPRESSION: 1. Diffuse scattered bilateral pulmonary nodules are stable. 2. Moderate left hydronephroureter caused by multiple distal ureteral stones. The largest measures 4 mm. Electronically Signed: Melchor Oviedo MD at 20:48 EST , Assessment & Plan Assessment/Plan (1) Sepsis associated hypotension: (2) UTI (urinary tract infection): QUALIFIERS: Urinary tract infection type: acute pyelonephritis Qualified Code(s): N10 - Acute pyelonephritis PLAN: Plan This 72-year-old gentleman came to ED with clinical features suggestive of sepsis secondary to UTI 1. Sepsis due to UTI most likely left pyelonephritis from obstructive multiple left ureteral calculi largest 4 mm: Patient is being admitted in ICU. The patient presented with sepsis with clinical indicators of high-grade fever, tachycardia, tachypnea, leukocytosis with neutrophil 96% due to left-sided pyelonephritis with acute sepsis-related organ dysfunction as evidenced by hypotension noted x 2, responsive to fluid, lactic acidosis and KAROL on CKD. Sepsis protocol followed with IV fluid, antibiotics and reevaluation. CT abdomen pelvis reviewed. Also reported bilateral chronic appearing perinephric inflammatory stranding but [place] for [place] of stone fragments blocking left ureter suggestive of pyelonephritis, started on IV Zosyn. The patient evaluated by urologist and plan for cystoscopy tomorrow AM. Veterinary Technician Assistant consulted for further management. 2 CAD status post stents: continue aspirin, Plavix, and atorvastatin. Patient not on beta-john, reason unclear follow-up with cardiology as an outpatient. 3. Acute kidney injury on stage III chronic kidney disease: Baseline creatinine has been around 1.6-1.75 last year. Admitted with BUNs/creatinine 44/3.33. Hold losartan. Patient follows underground drill operator Dr. Acharya and will consult him. 4 hypertension: Currently patient has hypotension responding to IV fluid therefore hold Norvasc and losartan. Norvasc low-dose 2.5 twice daily can be started from tomorrow if patient's blood pressure is high. 5. Dyslipidemia: Patient on atorvastatin continued. 6. History of prostate cancer: Status post prostatectomy, in remission. #7 DVT prophylaxis, high risk: Stool for occult blood positive although patient does not have active GI bleed. H&H 11.3/33% suggestive of chronic anemia. Platelet count 1 83,000. Heparin 500 subcutaneous twice daily. Bilateral SCDs. Discontinue if platelet count drops less than 50,000 or hemoglobin less than 8 g% Living will/advanced directive/end of life care: Patient does have living will or advanced directive. Her daughter who is patient plastic surgery assistant by profession is also his healthcare POA. After discussion of benefits/risks procedures involved with full code, DNR CC arrest and DNR CC, the patient and her daughter opted for full code. Patient does want artificial life support including intubation, tube feed, ventilator and/chest compression, central venous catheter, vasopressor and DC shock if needed Total time spent in [id number] encounter in discussion of advanced directive 17 minutes. Microbiology Past 72 Hours 04/08/23 18:40 Stool Stool Occult Blood (ALFONSO) - Final Occult Blood Positive 04/08/23 18:30 Mucosa - Nose SARS-CoV-2, Influenza & RSV (PCR) - Final Laboratory Results 04/08/23 18:00: WBC 15.6 H, RBC 3.57 L, Hgb 11.3 L, Hct 33.0 L, MCV 92.4, MCH 31.7, MCHC 34.2, RDW Std Deviation 44.8 H, RDW Coeff of Gaby 13.2, Plt Count 183, MPV 8.7, Immature Gran % (Auto) 0.900, Neut % (Auto) 96.0 H, Lymph % (Auto) 2.2 L, Beadle % (Auto) 0.8, Eos % (Auto) 0.0, Baso % (Auto) 0.1, Absolute Neuts (auto) 15.0 H, Absolute Lymphs (auto) 0.35 L, Nucleated RBC % 0, Differential Comment SCANNED, Sodium 143, Potassium 3.9, Chloride 111 H, Carbon Dioxide 20.0 L, Anion Gap 12, BUN 44 H, Creatinine 3.33 H, Estim Creat Clear Calc 20.40, Est GFR (MDRD) Af Amer 24 L, Est GFR (MDRD) Non-Af 19 L, BUN/Creatinine Ratio 13.2, Glucose 118 H, Calcium 9.3, Phosphorus 1.2 L, Total Bilirubin 1.40 H, AST 40 H, ALT 35, Alkaline Phosphatase 116, Total Creatine Kinase 176, Total Protein 6.3 L, Albumin 3.1 L, Globulin 3.2, Albumin/Globulin Ratio 1.0, Lipase 21 04/08/23 18:40: Lactic Acid 6.9 H* 04/08/23 19:45: Blood Type O POSITIVE, Antibody Screen NEGATIVE 04/08/23 21:46: PT 16.8 H, INR 1.4, APTT 34.5 04/08/23 22:36: Urine Color Yellow, Urine Clarity Clear, Urine pH 5.0, Ur Specific [place] 1.015, Urine Protein 30 H, Urine Glucose (UA) Normal, Urine Ketones Negative, Urine Occult Blood 50 H, Urine Nitrite Positive H, Urine Bilirubin Negative, Urine Urobilinogen Normal, Ur Leukocyte Esterase 100 H, Urine RBC Pending, Urine WBC Pending, Ur Squamous Epith Cells Pending, Urine Bacteria Pending, Urine Mucus Pending 04/08/23 23:18: Lactic Acid Pending Clinical Impression(s) from Imaging Studies Chest X-Ray 04/08/23 18:40 IMPRESSION: No radiographic evidence of acute cardiopulmonary disease. Chest/Abdomen/Pelvis CT 04/08/23 19:45 IMPRESSION: 1. Diffuse scattered bilateral pulmonary nodules are stable. 2. Moderate left hydronephroureter caused by multiple distal ureteral stones. The largest measures 4 mm. Charges/Coding Visit Charges Inpatient E&M: 78772 Init Hosp L3 Procedures Hospitalists Procedures: 85424 Advncd Care Plan 30 Min
[2023-04-08 22:03] LABS: CPK Total, Creatine Kinase 176 U/L (39-308)
--- OUTSIDE RECORDS SUMMARY | 2023-04-08 22:05 | XMS RPT_ITS | CCD ---
Author Name Unknown Address [address] [place] [address] Organization [facility] Care Team Providers Care Strap Buckler Machine Name Role Phone SIMON Garrison, Tiffanie Garay Unavailable Unavailabl e TavallaeeShekhar Attending Unavailable TavallaeeShekhar Primary Care Unavailable TavallaeeShekhar Attending Unavailable TavallaeeShekhar Primary Care Unavailable TavallaeeShekhar Admitting Unavailable TavallaeeShekhar Attending Unavailable TavallaeeShekhar Primary Care Unavailable TavallaeeShekhar Attending Unavailable TavallaeeShekhar Primary Care Unavailable TavallaeeShekhar Attending Unavailable TavallaeeMarcelloShekhar M Primary Care Unavailable Bassett, Vanessa Unavailable Unavailable Tavallaee, Shekhar Unavailable Unavailable TavallaeeShekhar Unavailable Unavailable TavallaeeMeShekhar Jarrod Unavailable [phone] Unavailable Unavailable NataliaallaeeShekhar Primary Care Unav ailable TavallaeeShekhar Attending Unav ailable TavallaeeShekhar Referring Unav ailable TavallaeeShekhar Primary Care Unav ailable TavallaeeShekhar Attending Unav ailable TavallaeeShekhar Referring Unav ailable Tavallaee, Shekhar Wade Primary Care Unav ailable Tavallaee, Shekhar Wade Attending Unav ailable Tavallaee, Shekhar Wade Referring Unav ailable Tavallaee, hSekhar Wade Attending Unav ailable Tavallaee, Shekhar Wade [...] Propensity to adverse reactions to drug (disorder) [facility] Repository Medications Current Medications Medication Drug Class(es) [...] Other chcf (current) drug therapy; Translations: [Other keno terminal operator (current) drug therapy] Onset: 12-11-2022 Episodic Other [...] 177.8 cm Shekhar Madrigal MD Work Phone: [facility] 06-12-2022 07:55-0400 Body mass index (BMI) [Ratio] 24.25 kg/m2 Shekhar Madrigal MD Work Phone: [facility] 06-12-2022 07:55-0400 Body weight 76.66 kg Shekhar Madrigal MD Work Phone: [facility] 06-12-2022 07:55-0400 Diastolic blood pressure 68 mm[Hg] Shekhar Madrigal MD Work Phone: [facility] 06-12-2022 07:55-0400 Heart rate 60 /min Shekhar Madrigal MD Work Phone: [facility] 06-12-2022 07:55-0400 Systolic blood pressure 114 mm[Hg] Shekhar Madrigal MD Work Phone: [facility] 01-10-2022 16:41-0500 Body height 177.8 cm Shekharrenea Sternaee Work Phone: [facility] Work Phone: 01-10-2022 16:41-0500 Body mass index (BMI) [Ratio] 23.82 kg/m2 Shekharrenea Sternaee Work Phone: [facility] Work Phone: 01-10-2022 16:41-0500 Body surface area Derived from formula 1.93 m2 Shekharrenea Sternaee Work Phone: [facility] Work Phone: 01-10-2022 16:41-0500 Body weight 75.3 kg Shekharrenea Sternaee Work Phone: [facility] Work Phone: 01-10-2022 16:41-0500 Diastolic blood pressure 76 mm[Hg] Shekharrenea Sternaee Work Phone: [facility] Work Phone: 01-10-2022 16:41-0500 Heart rate 72 /min Shekhar Sternaee Work Phone: [facility] Work Phone: 01-10-2022 16:41-0500 Systolic blood pressure 126 mm[Hg] Shekhar Sternaee Work Phone: [facility] Work Phone: 01-04-2022 08:58-0500 Body height 177.8 cm Shekhar M Tavallaee Work Phone: [facility] Work Phone: 01-04-2022 08:58-0500 Body mass index (BMI) [Ratio] 24.11 kg/m2 Shekhar M Tavallaee Work Phone: [facility] Work Phone: 01-04-2022 08:58-0500 Body surface area Derived from formula 1.94 m2 Shekhar M Tavallaee Work Phone: [facility] Work Phone: 01-04-2022 08:58-0500 Body weight 76.2 kg Shekhar M Tavallaee Work Phone: [facility] Work Phone: 01-04-2022 08:58-0500 Diastolic blood pressure 79 mm[Hg] Shekhar M Tavallaee Work Phone: [facility] Work Phone: 01-04-2022 08:58-0500 Heart rate 69 /min Shekhar M Tavallaee Work Phone: [facility] Work Phone: 01-04-2022 08:58-0500 Systolic blood pressure 138 mm[Hg] Shekhar M Tavallaee Work Phone: [facility] Work Phone: 12-12-2021 08:01-0400 Body height 177.8 cm Shekhar M Tavallaee Work Phone: [facility] Work Phone: 12-12-2021 08:01-0400 Body mass index (BMI) [Ratio] 23.96 kg/m2 Shekhar M Tavallaee Work Phone: [facility] Work Phone: 12-12-2021 08:01-0400 Body surface area Derived from formula 1.93 m2 Shekhar Jarrod Tavallaee Work Phone: [facility] Work Phone: 12-12-2021 08:01-0400 Body weight 75.75 kg Shekhar Jarrod Tavallaee Work Phone: [facility] Work Phone: 12-12-2021 08:01-0400 Diastolic blood pressure 72 mm[Hg] Shekhar Jarrod Tavallaee Work Phone: [facility] Work Phone: 12-12-2021 08:01-0400 Heart rate 62 /min Shekhar Jarrod Fisherallaee Work Phone: [facility] Work Phone: 12-12-2021 08:01-0400 Systolic blood pressure 128 mm[Hg] Shekhar Jarrod Tavallaee Work Phone: [facility] Work Phone: 05-30-2021 07:59-0400 Body height 177.8 cm Shekhar Jarrod Fisherallaee Work Phone: [facility] Work Phone: 05-30-2021 07:59-0400 Body mass index (BMI) [Ratio] 24.89 kg/m2 Shekhar Jarrod Tavallaee Work Phone: [facility] Work Phone: 05-30-2021 07:59-0400 Body surface area Derived from formula 1.96 m2 Shekhar Jarrod Tavallaee Work Phone: [facility] Work Phone: 05-30-2021 07:59-0400 Body weight 78.7 kg Shekhar M Tavallaee Work Phone: [facility] Work Phone: 05-30-2021 07:59-0400 Diastolic blood pressure 78 mm[Hg] Shekhar Jarrod Tavallaee Work Phone: [facility] Work Phone: 05-30-2021 07:59-0400 Heart rate 68 /min Shekhar Jarrod Tavallaee Work Phone: [facility] Work Phone: 05-30-2021 07:59-0400 Systolic blood pressure 122 mm[Hg] Shekhar Jarrod Tavallaee Work Phone: [facility] Work Phone: 11-29-2020 08:03-0400 Body height 177.8 cm Shekharrenea Fisherallaee Work Phone: [facility] Work Phone: 11-29-2020 08:03-0400 Body mass index (BMI) [Ratio] 23.82 kg/m2 Shekharrenea Fisherallaee Work Phone: [facility] Work Phone: 11-29-2020 08:03-0400 Body surface area Derived from formula 1.93 m2 Shekhar Fisherallaee Work Phone: [facility] Work Phone: 11-29-2020 08:03-0400 Body weight 75.3 kg Shekhar Jarrod Fisherallaee Work Phone: [facility] Work Phone: 11-29-2020 08:03-0400 Diastolic blood pressure 78 mm[Hg] Shekahr Jarrod Tavallaee Work Phone: [facility] Work Phone: 11-29-2020 08:03-0400 Heart rate 66 /min Shekhar Madrigal Work Phone: [facility] Work Phone: 11-29-2020 08:03-0400 Systolic blood pressure 112 mm[Hg] Shekhar Madrigal Work Phone: [facility] Work Phone: Encounters Encounter Date Encounter Type Care Provider Facility Start: 03-08-2023 End: 03-08-2023 [facility] Start: 03-08-2023 End: 03-08-2023 Phys/qhp telephone evaluation 11-20 min Shekhar Madrigal MD Work Phone: [facility] Procedures Date Procedure Procedure Detail Performing Clinician Start: 12-11-2022 INFLUENZA, HIGH-DOSE SEASONAL. QUADRIVALENT, PRESERVATIVE FREE SHEKHAR MADRIGAL Start: 04-16-2022 H/O: surgery H/O prostatectomy Doreen Madrigal MD Work Phone: Start: 02-13-2020 Colonoscopy Shekhar davis MD Work Phone: Start: 02-13-2020 Colonoscopy Shekhar Madrigal Work Phone: Plan of Treatment Date Care Activity Detail Author Start: 02-12-2030 Screening for malignant neoplasm of colon [facility] Start: 05-24-2028 DTaP/Tdap/Td Vaccine s (3 - Td or Tdap) DTaP/Tdap/Td Vaccines (3 - Td or Tdap) [facility] Start: 06-18-2023 End: 06-18-2023 Patient encounter procedure 06/18/2023 3:00 PM EDT Office Visit [facility] [address] [place] [id number] Shekhar Madrigal MD [address] [place] [address] [facility] Start: 06-14-2023 Medicare Annual Wellness Visit Medicare Annual Wellness Visit (AWV) [facility] Start: 06-12-2022 End: 06-13-2023 25-hydroxyvitamin D3 [Mass/volume] in Serum or Plasma Vitamin D, Total Lab Routine Vitamin D deficiency Expected: 06/12/2022 (Approximate), Expires: 06/13/2023 [facility] Work Phone: Immunizations Immunization Date Immunization Notes Care Provider Fa cility 01-03-2023 Pneumococcal conjuga te vaccine, 20-valent (PREVNAR 20) Shekhar Madrigal MD Work Phone: [facility] Work Phone: 12-11-2022 Flu vaccine, quadrivalent, high-dose, preservative free, age 65y+ (FLUZONE) Shekhar Madrigal MD Work Phone: [facility] Work Phone: 06-12-2022 diphtheria, tetanus toxoids and acellular pertussis vaccine, unspecified formulation Shekhar Madrigal MD Work Phone: [facility] Work Phone: 06-12-2022 zoster vaccine-recombinant adjuvanted (Shingrix, PF,) 50 mcg/0.5 mL vaccine Shekhar Madrigal MD Work Phone: [facility] Work Phone: 06-12-2022 pneumoc 20-micaela conj- dip cr,PF, (Prevnar 20, PF,) 0.5 mL vaccine Shekhar Madrigal MD Work Phone: [facility] Work Phone: 12-12-2021 Fluzone High-Dose Quadrivalent 0.7 ML Intramuscular Suspension Prefilled Syringe; Translations: [Fluzone High-Dose Quadrivalent 0.7 ML Intramuscular Suspension Prefilled Syringe] Shekhar Madrigal Work Phone: [facility] Work Phone: Payers Date Payer Category Payer Medicare [employer] MEDICARE A NATHAN FLEMING MEDICARE [id number] 2021-Present [address] [place] [address] [id number] 2019 Private Health Insurance [id number] 2017 Private Health Insurance 1950 Unknown [id number] 17 1950 Unknown [id number] 17 1949 Unknown [id number] 17 1949 Unknown [id number] [id number] 17 1949 Unknown [id number] [id number] 17 1949 Unknown [id number] [id number] 56 1949 Unknown [id number] [id number] 56 1949 Unknown [id number] [id number] 56 1949 Unknown [id number] [id number] 56 1949 Unknown [id number] [id number] 56 1949 Unknown [id number] [id number] 56 1949 Unknown [id number] [id number] 244 1949 Unknown [id number] 244 1949 Unknown [id number] 244 Unknown [employer] Social History Date Type Detail Facility Assertion Tobacco smoking consumption unknown (finding) [facility] Work Phone: Start: 04-16-2022 End: 06-12-2022 Non-smoker Non-smoker [facility] Work Phone: Start: 04-16-2022 Tobacco smoking stat us NHIS Never smoked tobacco [facility] Work Phone: Start: 04-16-2022 Tobacco use and exposure Smokeless tobacco non-user [facility] Work Phone: Start: 06-12-2022 End: 03-08-2023 Alcohol intake Lifetime non-drinker (finding) [facility] Work Phone: Start: 04-16-2022 End: 06-12-2022 Tobacco use panel [facility] Work Phone: Start: 1950 Sex Assigned At Not on file [facility] Work Phone: Start: 06-02-2022 End: 06-12-2022 Exposure to SARS-CoV-2 (event) Not sure [facility] Start: 02-26-2023 End: 03-08-2023 Exposure to SARS-CoV-2 (event) Unable to assess [facility] Work Phone: Functional Status Date Assessment Result Facility NEGATED: Highlighted row Functional performance Functional status health issues are not documented Disease [facility] Work Phone: Mental Status Date Assessment Result Facility NEGATED: Highlighted row Cognitive function [Interpretation] Cognitive status health issues are not documented Disease [facility] Work Phone: History of Present [...] 6 mo bw documented in this encounter [facility] Work Phone: Evaluation note Note Date & Type Note Facility documented in this encounter [facility] Work Phone: Evaluation note Note Date & Type Note Facility documented in this encounter [facility] Work Phone: History of Present illness Narrative Note Date & Type Note Facility History of Present illness Narrative PT C/O left wrist pain no numbness no tinglingFOR a couple of monthSEVERITY: mildCHARACTERISTIC: chronicEXACERBATION FACTOR: noneRELIEVING FACTOR: noneASSOCIATED SYMPTOMS: nonePRIOR [place]: race [facility] Work Phone: History of Present [...] TO TAKE MEDS FOR ITWELLNESS EXAM [facility] Work Phone: History of Present illness Narrative Note Date & Type Note Facility History of Present illness Narrative HERE FOR F/U WITH [facility], DID NOT HAVE PNEUMONIA JUST SCAR OF SARCOIDOSIS [facility] Work Phone: History of Present illness Narrative Note Date & Type Note Facility History of Present illness Narrative PT C/O LBP WITH RADIATION TO THE RIGHT LE, AFTER RACKINGFOR 5 DAYSSEVERITY: MODERATECHARACTERISTIC: ACUTEEXACERBATION FACTOR: EXERTIONRELIEVING FACTOR: RESTASSOCIATED SYMPTOMS:TINGLING RIGHT LEPRIOR TX: TYLRNOL, ICEING [facility] Work Phone: History of Present illness Narrative Note Date & Type Note Facility History of Present illness Narrative HERE FOR F/U FEELS BETTER [facility] Work Phone: History of [...] me if worse documented in this encounter [facility] Work Phone: Summary Purpose Family History [...] DATE CREATED AUTHOR AUTHOR'S ORGANIZ ATION 01/12/2022 [facility] DATE CREATED AUTHOR AUTHOR'S ORGANIZ ATION 01/12/2022 [employer] DATE CREATED AUTHOR AUTHOR'S ORGANROMMEL ATION 03/11/2023 [facility] Reason for Visit (unrecogniz ed section and content) Reason Comments Follow-up Pt covid positive to day has cough some times a minor headache was taking airborne Care Teams (unrecognized sec tion and content) Strap Buckler Machine Relationship Specialty Start Date End Date Shekhar Madrigal MD [address] [place] [address] PCP - General 04/03/19 Shekhar Madrigal MD [address] [place] [address] PCP - [employer]age PCP 02/26/21 [...] BE BASED ON THE PRIMARY CLINICAL RECORDS. [facility] [email or web address] provides no warranty or guarantee of the accuracy or completeness of information in this document.
[2023-04-08 22:20] LABS: International Normalized Ratio 1.4; Prothrombin Time (Protime)PT. 16.8 SECONDS (11.7-14.9)
[2023-04-08 22:25] LABS: Partial Thromboplast Time 34.5 Seconds (24.1-36.2)
[2023-04-08] MEDS: Acetaminophen 500 MG Tablet 1000 MG PO (22:47)
[2023-04-08 22:54] LABS: Mucous, Urine 0 SEEN /hpf (<or=2+); Squamous Epithelial Cells - UA 0 SEEN /hpf (0-5)
[2023-04-08 23:04] LABS: Color, Urine Yellow (Yellow); Glucose, Dipstick Normal (Normal); Ketone-Dipstick Negative (Negative); Leukocyte Esterase-Dipstick 100 /ul (Negative); Nitrite-Dipstick Positive (Negative); Occult Blood-Urine 50 /ul (Negative); Protein-Dipstick 30 mg/dl (Negative); Specific Gravity, Urine 1.015 (1.002-1.030); Urine Bilirubin Dipstick Negative (Negative); Urine Clarity Clear (Clear); Urine Urobilinogen Normal (Normal)
[2023-04-08 23:09] LABS: Reflex Lactate? Y
--- NOTE | 2023-04-08 23:12 | ED.RN ---
RN notified of pt pulse ox dropped to 80%. Jalil STOCK aware, Dr. Youngblood in room. Pt placed on 5L NC. Pt condition continued to deteriorate. Temp checked, 98.6 oral. Pt shaking, not complaining of pain. Both Jalil STOCK and Dr. Brower aware. Temp foly placed via verbal order from . Core temp 104.3. 1g tylenol verbal order given by Dr. Brower. Report given to ICU, taking upstairs to their care.
--- NOTE | 2023-04-08 23:15 | NURSING ---
Pt placed on cooling blanket due to fever of 105.7. Ice packs also applied to underarms.
[2023-04-08] MEDS: 0.9% Saline Lock 10 ML Syringe IV (23:25)
[2023-04-08] MEDS: Potassium Phosphate 21 MM in 0.9% Normal Saline (250mL Bag) 250 ML 84 MM IV (23:26)
[2023-04-08 23:42] LABS: White Blood Cells 50-100 SEEN /hpf (0-5)
[2023-04-08 23:43] LABS: Bacteria 3+ /hpf (None Seen); Red Blood Cells-Urine 10-25 SEEN /hpf (0-5)
[2023-04-09] VITALS (69 sets, daily range): BP systolic 61–114; BP diastolic 37–91; PULSE 68–97; RESP 12–31; TEMP 36.3–39.6; O2SAT 79–98; BMI 23.6
[2023-04-09 00:18] LABS: Lactic Acid 8.9 mmol/L (0.4-1.9)
[2023-04-09] MEDS: Dext 5%-0.45% NS 1,000 ML 75 ML IV (01:02)
[2023-04-09] MEDS: Famotidine 20 MG Tablet PO ×2 (01:05→20:50)
[2023-04-09] MEDS: oxyCODONE 5 MG Tablet PO (01:05)
--- NOTE | 2023-04-09 01:32 | PCMCONS.TICU ---
HPI Consult Data Date of Consult: 04/09/23 HPI Narrative Reason for Consultation: Septic shock, Hydronephroureter HPI Narrative: ANDRÉS GUEVARA, is a 72 M who presents for Dehydration and vomiting. Patient has been complaining of suprapubic pain on and off for 6 weeks that was radiating to his back on the left side. Pain is 8-9/10 intensity. Patient has been vomiting since last 24 hrs about 2 - 3 times and felt dizzy therefore came into ER for further evaluation. Patient also complains of fever, chills associated with above symptoms. In ER patient was found to be hypotensive and received about 4L NS and patient was started on Ceftriaxone and then switched to zosyn. Patient has not required any pressers for now. [facility] Medical History Atherosclerosis of coronary artery of [place] heart without angina pectoris Calculus of left kidney Essential (primary) hypertension GERD (gastroesophageal reflux disease) History of back problems History of non-ST elevation myocardial infarction (NSTEMI) (05/22/15) Hyperlipidemia Myocardial infarct Neuralgia of groin Nonrheumatic mitral (valve) insufficiency Prostate cancer Right inguinal hernia 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 Home Medications aspirin 81 mg chewable tablet 81 mg PO DAILY@0800 09/18/18 [History Last Taken Unknown] famotidine 20 mg tablet (Acid Screen Repairer Crusher (famotidine)) 20 mg PO QHS gerd 04/11/19 [History Last Taken Unknown] ascorbate calcium (vitamin C) 500 mg tablet 500 mg PO DAILY 07/01/19 [History Last Taken Unknown] multivitamin-ferrous fumarate-folic acid 18 mg-400 mcg tablet (Centrum Complete) 1 tab PO QHS 07/01/19 [History Last Taken Unknown] ergocalciferol (vitamin D2) 1,250 mcg (50,000 unit) capsule (Vitamin D2) 1,250 mcg PO Q2W 10/07/19 [History Last Taken Unknown] losartan 100 mg tablet 100 mg PO DAILY htn #90 tabs 04/25/22 [Rx Last Taken Unknown] atorvastatin 40 mg tablet 40 mg PO .qod #45 tabs 08/17/22 [Rx Last Taken Unknown] clopidogrel 75 mg tablet 75 mg PO DAILY #90 tabs 08/30/22 [Rx Last Taken Unknown] amlodipine 2.5 mg tablet 2.5 mg PO BID #180 tabs 09/15/22 [Rx Last Taken Unknown] Allergy/AdvReac Type Severity Reaction Status Date / Time No Known Allergies Allergy Verified 04/08/23 17:12 Family History Father Hypertension Surgical History H/O shoulder surgery History of cataract surgery History of colonoscopy (2011) History of coronary artery stent placement (05/22/15) History of extraction of renal calculus History of inguinal herniorrhaphy (07/09/19) History of prostatectomy Social History Smoking Status: Never smoker alcohol intake: never substance use type: does not use caffeine: Yes Type: carbonated beverages Number of servings: 1 what type of physical activity do you participate in: walking and bicycling frequency: daily duration: 60-90 minutes/day seatbelt use: always do you feel safe at home: Yes ROS ROS Narrative As per HPI Objective Data Objective Data Vital Signs: Vital Signs Last response Temperature 38.2 C H 04/09/23 01:00 Temperature Source Core 04/09/23 01:00 Pulse Rate 97 04/09/23 01:00 Respiratory Rate 29 H 04/09/23 01:00 Blood Pressure 106/91 H 04/09/23 01:00 Blood Pressure Mean 96 04/09/23 01:00 Blood Pressure Source Monitor 04/09/23 01:00 Blood Pressure Position Semi-Fowlers 04/09/23 01:00 Blood Pressure Location Right Arm 04/09/23 01:00 Pulse Ox 93 04/09/23 01:00 Oxygen Delivery Method High Flow 04/09/23 01:00 Oxygen Flow Rate (L/min) 15 04/09/23 01:00 I&O: I&O Last 24 Hours 04/08/23 04/08/23 04/09/23 11:59 23:59 11:59 Intake Total 3050 / 3050 1000 / 1000 Output Total 125 / 125 Balance 3050 / 2925 875 / 875 I&O: Total Stay 04/08/23 17:10 thru 04/09/23 00:07 Intake Total 4050 Output Total 125 Balance 3925 Current Meds Ordered / Administered: Current meds ordered / Administered Generic Name Dose Route Start Last Admin Trade Name Maria Teresa PRN Reason Stop Dose Admin Amlodipine Besylate 2.5 mg 04/09/23 10:00 Amlodipine 2.5 Mg Tablet PO BID [facility] Protocol Ascorbic Acid 500 mg 04/09/23 10:00 Ascorbic Acid 500 Mg Tablet PO DAILY [facility] Aspirin 81 mg 04/09/23 08:00 Aspirin 81 Mg Tab.Chew PO DAILY@0800 [facility] Atorvastatin Calcium 40 mg 04/09/23 22:00 Atorvastatin Calcium 40 Mg Tablet PO Q48H [facility] Clopidogrel Bisulfate 75 mg 04/09/23 10:00 Clopidogrel Bisulfate 75 Mg Tablet PO DAILY [facility] Famotidine 20 mg 04/08/23 22:47 04/09/23 01:05 Famotidine 20 Mg Tablet PO 20 mg QHS [facility] Administration Heparin Sodium (Porcine) 5,000 unit 04/09/23 10:00 Heparin Injection (Vial) 5,000 Unit/Ml Vial SC Q12 [facility] Piperacillin Sod/Tazobactam 50 mls @ 12.5 mls/hr 04/09/23 06:00 Sod 3.375 gm/ Sodium Chloride IV Q8 FANNY Sodium Chloride 250 mls @ 15 mls/hr 04/08/23 22:57 IV .[id number] PRN Additional IVPB Infusion Dextrose/Sodium Chloride 1,000 mls @ 75 mls/hr 04/09/23 00:40 04/09/23 01:02 IV 75 mls/hr .[id number] FANNY Administration Oxycodone HCl 2.5 - 5 mg 04/09/23 00:37 04/09/23 01:05 Oxycodone 5 Mg Tablet PO 5 mg Q4H PRN PRN Administration Pain Score 4-10 Sodium Chloride 10 - 40 ml 04/08/23 22:57 04/08/23 23:25 0.9% Saline Lock 10 Ml Syringe IV 20 ml UD PRN Administration SALINE FLUSH Physical Exam Narrative PHYSICAL EXAMINATION General: no acute distress; alert and oriented x 4 HEENT: PERRL; Anicteric Sclera; No thyromegaly, JVD Cardiovascular: Regular Rate and Rhythm; No murmurs, rubs, gallops; no displaced PMI Respiratory: no crackles, wheezes, or rhonchi Abdominal: Non-tender; Non-distended; Active BS x 4; No Hepatosplenomegaly, no CVA tenderness Extremities: Warm, well perfused; No clubbing, cyanosis, edema; capillary refill < 2sec Neurological: 5/5 Motor and Sensory Upper and Lower Extremities; CN 2-12 intact Lab / Micro Data Attestation: I reviewed the patient's lab results. 04/08/23 18:00 04/08/23 18:00 Labs: Laboratory Results - last 24 hr 04/08/23 18:00: WBC 15.6 H, RBC 3.57 L, Hgb 11.3 L, Hct 33.0 L, MCV 92.4, MCH 31.7, MCHC 34.2, RDW Std Deviation 44.8 H, RDW Coeff of Gaby 13.2, Plt Count 183, MPV 8.7, Immature Gran % (Auto) 0.900, Neut % (Auto) 96.0 H, Lymph % (Auto) 2.2 L, Plumas % (Auto) 0.8, Eos % (Auto) 0.0, Baso % (Auto) 0.1, Absolute Neuts (auto) 15.0 H, Absolute Lymphs (auto) 0.35 L, Nucleated RBC % 0, Differential Comment SCANNED, Sodium 143, Potassium 3.9, Chloride 111 H, Carbon Dioxide 20.0 L, Anion Gap 12, BUN 44 H, Creatinine 3.33 H, Estim Creat Clear Calc 20.40, Est GFR (MDRD) Af Amer 24 L, Est GFR (MDRD) Non-Af 19 L, BUN/Creatinine Ratio 13.2, Glucose 118 H, Calcium 9.3, Phosphorus 1.2 L, Total Bilirubin 1.40 H, AST 40 H, ALT 35, Alkaline Phosphatase 116, Total Creatine Kinase 176, Total Protein 6.3 L, Albumin 3.1 L, Globulin 3.2, Albumin/Globulin Ratio 1.0, Lipase 21 04/08/23 18:40: Lactic Acid 6.9 H* 04/08/23 19:45: Blood Type O POSITIVE, Antibody Screen NEGATIVE 04/08/23 21:46: PT 16.8 H, INR 1.4, APTT 34.5 04/08/23 22:36: Urine Color Yellow, Urine Clarity Clear, Urine pH 5.0, Ur Specific [place] 1.015, Urine Protein 30 H, Urine Glucose (UA) Normal, Urine Ketones Negative, Urine Occult Blood 50 H, Urine Nitrite Positive H, Urine Bilirubin Negative, Urine Urobilinogen Normal, Ur Leukocyte Esterase 100 H, Urine RBC 10-25 SEEN, Urine WBC 50-100 SEEN, Ur Squamous Epith Cells 0 SEEN, Urine Bacteria 3+, Urine Mucus 0 SEEN 04/08/23 23:18: Lactic Acid 8.9 H* Micro: Microbiology 04/08/23 18:40 Stool Stool Occult Blood (ALFONSO) - Final Occult Blood Positive 04/08/23 18:30 Mucosa - Nose SARS-CoV-2, Influenza & RSV (PCR) - Final Imaging Radiology Impression Chest X-Ray 04/08/23 18:40 IMPRESSION: No radiographic evidence of acute cardiopulmonary disease. Electronically Signed: Melchor Oviedo MD at 18:57 EST , Chest/Abdomen/Pelvis CT 04/08/23 19:45 IMPRESSION: 1. Diffuse scattered bilateral pulmonary nodules are stable. 2. Moderate left hydronephroureter caused by multiple distal ureteral stones. The largest measures 4 mm. Electronically Signed: Melchor Oviedo MD at 20:48 EST , Assessment and Plan . Assessment and plan: #UTI #Left Hydronephrosis #Renal Stones #Severe Sepsis #Acute respiratory failure, Hypoxia #Severe metabolic acidosis mostlikely due to renal failure and Sepsis #KAROL on CKD #CAD S/P Stents #HTN #HLD #MVR #Prostate Ca s/p prostatectomy #Sarcoidosis not on any medications Plan -Monitor patient's hemodynamics and respiratory status in ICU -Start on Incentive spirometer -Continue NC O2 -ABG as needed -PanCultures including Blood, sputum and urine as indicated -IVF +/- 30ml/Kg bolus - given previously -Patient currently on maintenance fluids -If needed will start on IV pressors - Levophed/Vasopressin/Neosynephrine -No steroids needed at this time -Monitor Lactic acid -Hold all HTN meds for now, start if SBP>130 -IV abx- Started on Zosyn -Urology consulted -Plan to place Ureteral stent -Tylenol for fever -Cooling blankets -Monitor Renal Function daily -Avoid nephrotoxic medications -Gibbs catheter to monitor I/O?s -Consider lasix if BP can tolerate -Consider Nephrology consult -DVT Px - Heparin SQ Critical Care Time: 63mins The entirety of this encounter was done via Telemedicine
--- OUTSIDE RECORDS SUMMARY | 2023-04-09 01:55 | XMS RPT_ITS | CCD ---
Author Name Unknown Address [address] [place] [address] Organization [facility] Care Team Providers Care Case Specialist Name Role Phone SIMON Garrison, Tiffanie Garay Unavailable Unavailabl e TavallaeeShekhar Attending Unavailable TavallaeeShekhar Primary Care Unavailable TavallaeeShekhar Attending Unavailable TavallaeeShekhar Primary Care Unavailable TavallaeeShekhar Admitting Unavailable TavallaeeShekhar Attending Unavailable TavallaeeShekhar Primary Care Unavailable TavallaeeShekhar Attending Unavailable TavallaeeShekhar Primary Care Unavailable TavallaeeMarcelloShekhar M Attending Unavailable TavallaeeMarcelloShekhar M Primary Care Unavailable [...] Tavallaee, Shekhar Wade Referring Unav ailable Tavallaee, Shekahr Wade Primary Care Unav ailable Tavallaee, Shekhar [...] Propensity to adverse reactions to drug (disorder) [facility] Medications Current Medications Medication Drug [...] 06-12-2022 Chronic Other aftercare (2 sources) Other correction (current) drug therapy; Translations: [Other intermediate frame tender (current) drug therapy] Onset: 12-11-2022 Episodic Other [...] Date Time Vital Sign Value Performing Clinician Jesisca cuenca 06-12-2022 07:55-0400 Body height 177.8 cm Shekhar Madrigal MD Work Phone: [facility] 06-12-2022 07:55-0400 Body mass index (BMI) [Ratio] 24.25 kg/m2 Shekhar Madrigal MD Work Phone: [facility] 06-12-2022 07:55-0400 Body weight 76.66 kg Shekhar Madrigal MD Work Phone: [facility] 06-12-2022 07:55-0400 Diastolic blood pressure 68 mm[Hg] Shekhar Madrigal MD Work Phone: [facility] 06-12-2022 07:55-0400 Heart rate 60 /min Shekhar Madrigal MD Work Phone: [facility] 06-12-2022 07:55-0400 Systolic blood pressure 114 mm[Hg] Shekhar Madrigal MD Work Phone: [facility] 01-10-2022 16:41-0500 Body height 177.8 cm Shekharrenea Sternaee Work Phone: [facility] Work Phone: 01-10-2022 16:41-0500 Body mass index (BMI) [Ratio] 23.82 kg/m2 Shekharrenea Sternaee Work Phone: [facility] Work Phone: 01-10-2022 16:41-0500 Body surface area Derived from formula 1.93 m2 Shekharrenea Sternaee Work Phone: [facility] Work Phone: 01-10-2022 16:41-0500 Body weight 75.3 kg Shekharrenea Sternaee Work Phone: [facility] Work Phone: 01-10-2022 16:41-0500 Diastolic blood pressure 76 mm[Hg] Shekharrenea Sternaee Work Phone: [facility] Work Phone: 01-10-2022 16:41-0500 Heart rate 72 /min Shekhar Sternaee Work Phone: [facility] Work Phone: 01-10-2022 16:41-0500 Systolic blood pressure 126 mm[Hg] Shekhar Sternaee Work Phone: [facility] Work Phone: 01-04-2022 08:58-0500 Body height 177.8 cm Shekhar M Tavallaee Work Phone: [facility] Work Phone: 01-04-2022 08:58-0500 Body mass index (BMI) [Ratio] 24.11 kg/m2 Shekhar M Tavallaee Work Phone: [facility] Work Phone: 01-04-2022 08:58-0500 Body surface area Derived from formula 1.94 m2 Shekhar M Tavallaee Work Phone: [facility] Work Phone: 01-04-2022 08:58-0500 Body weight 76.2 kg Shekhar M Tavallaee Work Phone: [facility] Work Phone: 01-04-2022 08:58-0500 Diastolic blood pressure 79 mm[Hg] Shekhar M Tavallaee Work Phone: [facility] Work Phone: 01-04-2022 08:58-0500 Heart rate 69 /min Shekhar M Tavallaee Work Phone: [facility] Work Phone: 01-04-2022 08:58-0500 Systolic blood pressure 138 mm[Hg] Shekhar M Tavallaee Work Phone: [facility] Work Phone: 12-12-2021 08:01-0400 Body height 177.8 cm Shekhar M Tavallaee Work Phone: [facility] Work Phone: 12-12-2021 08:01-0400 Body mass index (BMI) [Ratio] 23.96 kg/m2 Shekhar M Tavallaee Work Phone: [facility] Work Phone: 12-12-2021 08:01-0400 Body surface area Derived from formula 1.93 m2 Shekhar Jarrod Tavallaee Work Phone: [facility] Work Phone: 12-12-2021 08:01-0400 Body weight 75.75 kg Shekhar Jarrod Tavallaee Work Phone: [facility] Work Phone: 12-12-2021 08:01-0400 Diastolic blood pressure 72 mm[Hg] Shekhar Jarrod Tavallaee Work Phone: [facility] Work Phone: 12-12-2021 08:01-0400 Heart rate 62 /min Shekhar Jarrod Fisherallaee Work Phone: [facility] Work Phone: 12-12-2021 08:01-0400 Systolic blood pressure 128 mm[Hg] Shekhar Jarrod Tavallaee Work Phone: [facility] Work Phone: 05-30-2021 07:59-0400 Body height 177.8 cm Shekhar Jarrod Fisherallaee Work Phone: [facility] Work Phone: 05-30-2021 07:59-0400 Body mass index (BMI) [Ratio] 24.89 kg/m2 Shekhar Jarrod Tavallaee Work Phone: [facility] Work Phone: 05-30-2021 07:59-0400 Body surface area Derived from formula 1.96 m2 Shekhar Jarrod Tavallaee Work Phone: [facility] Work Phone: 05-30-2021 07:59-0400 Body weight 78.7 kg Shekhar M Tavallaee Work Phone: [facility] Work Phone: 05-30-2021 07:59-0400 Diastolic blood pressure 78 mm[Hg] Shekhar Jarrod Tavallaee Work Phone: [facility] Work Phone: 05-30-2021 07:59-0400 Heart rate 68 /min Shekhar Jarrod Tavallaee Work Phone: [facility] Work Phone: 05-30-2021 07:59-0400 Systolic blood pressure 122 mm[Hg] Shekhar Jarrod Tavallaee Work Phone: [facility] Work Phone: 11-29-2020 08:03-0400 Body height 177.8 cm Shekharrenea Fisherallaee Work Phone: [facility] Work Phone: 11-29-2020 08:03-0400 Body mass index (BMI) [Ratio] 23.82 kg/m2 Shekharrenea Fisherallaee Work Phone: [facility] Work Phone: 11-29-2020 08:03-0400 Body surface area Derived from formula 1.93 m2 Shekhar Fisherallaee Work Phone: [facility] Work Phone: 11-29-2020 08:03-0400 Body weight 75.3 kg Shekhar Jarrod Fisherallaee Work Phone: [facility] Work Phone: 11-29-2020 08:03-0400 Diastolic blood pressure 78 mm[Hg] Shekhar Jarrod Tavallaee Work Phone: [facility] Work Phone: 11-29-2020 08:03-0400 Heart rate 66 /min Shekhar Madrigal Work Phone: [facility] Work Phone: 11-29-2020 08:03-0400 Systolic blood pressure 112 mm[Hg] Shekhar Madrigal Work Phone: [facility] Work Phone: Encounters Encounter Date Encounter Type Care Provider Facility Start: 03-08-2023 End: 03-08-2023 [facility] Start: 03-08-2023 End: 03-08-2023 Phys/qhp telephone evaluation 11-20 min Shekhar Madrigal MD Work Phone: [facility] Procedures Date Procedure Procedure Detail Performing Clinician Start: 12-11-2022 INFLUENZA, HIGH-DOSE SEASONAL. QUADRIVALENT, PRESERVATIVE FREE SHEKHAR MADRIGAL Start: 04-16-2022 H/O: surgery H/O prostatectomy Doreen Madrigal MD Work Phone: Start: 02-13-2020 Colonoscopy Shekhar davis MD Work Phone: Start: 02-13-2020 Colonoscopy Shekhar Madrigal Work Phone: Plan of Treatment Date Care Activity Detail Author Start: 02-12-2030 Screening for malignant neoplasm of colon [facility] Start: 05-24-2028 DTaP/Tdap/Td Vaccine s (3 - Td or Tdap) DTaP/Tdap/Td Vaccines (3 - Td or Tdap) [facility] Start: 06-18-2023 End: 06-18-2023 Patient encounter procedure 06/18/2023 3:00 PM EDT Office Visit [facility] [address] [place] [id number] Shekhar Madrigal MD [address] [place] [address] [facility] Start: 06-14-2023 Medicare Annual Wellness Visit Medicare Annual Wellness Visit (AWV) [facility] Start: 06-12-2022 End: 06-13-2023 25-hydroxyvitamin D3 [Mass/volume] in Serum or Plasma Vitamin D, Total Lab Routine Vitamin D deficiency Expected: 06/12/2022 (Approximate), Expires: 06/13/2023 [facility] Work Phone: Immunizations Immunization Date Immunization Notes Care Provider Fa cility 01-03-2023 Pneumococcal conjuga te vaccine, 20-valent (PREVNAR 20) Shekhar Madrigal MD Work Phone: [facility] Work Phone: 12-11-2022 Flu vaccine, quadrivalent, high-dose, preservative free, age 65y+ (FLUZONE) Shekhar Madrigal MD Work Phone: [facility] Work Phone: 06-12-2022 diphtheria, tetanus toxoids and acellular pertussis vaccine, unspecified formulation Shekhar Madrigal MD Work Phone: [facility] Work Phone: 06-12-2022 zoster vaccine-recombinant adjuvanted (Shingrix, PF,) 50 mcg/0.5 mL vaccine Shekhar Madrigal MD Work Phone: [facility] Work Phone: 06-12-2022 pneumoc 20-micaela conj- dip cr,PF, (Prevnar 20, PF,) 0.5 mL vaccine Shekhar Madrigal MD Work Phone: [facility] Work Phone: 12-12-2021 Fluzone High-Dose Quadrivalent 0.7 ML Intramuscular Suspension Prefilled Syringe; Translations: [Fluzone High-Dose Quadrivalent 0.7 ML Intramuscular Suspension Prefilled Syringe] Shekhar Madrigal Work Phone: [facility] Work Phone: Payers Date Payer Category Payer Medicare [employer] MEDICARE A NATHAN FLEMING MEDICARE [id number] 2021-Present [address] [place] [address] [id number] 2019 Private Health Insurance [id number] 2017 Private Health Insurance 1950 Unknown [id number] 17 1949 Unknown [id number] 17 1949 Unknown [id number] 17 1949 Unknown [id number] 17 1949 Unknown [id number] 17 1949 Unknown [id number] 56 1949 Unknown [id number] 56 1949 Unknown [id number] 56 1949 Unknown [id number] 56 1949 Unknown [id number] 56 1949 Unknown [id number] 56 1949 Unknown [id number] 244 1949 Unknown [id number] 244 1949 Unknown [id number] 244 Unknown [employer] Social History Date Type Detail Facility Assertion Tobacco smoking consumption unknown (finding) [facility] Work Phone: Start: 04-16-2022 End: 06-12-2022 Non-smoker Non-smoker [facility] Work Phone: Start: 04-16-2022 Tobacco smoking stat us NHIS Never smoked tobacco [facility] Work Phone: Start: 04-16-2022 Tobacco use and exposure Smokeless tobacco non-user [facility] Work Phone: Start: 06-12-2022 End: 03-08-2023 Alcohol intake Lifetime non-drinker (finding) [facility] Work Phone: Start: 04-16-2022 End: 06-12-2022 Tobacco use panel [facility] Work Phone: Start: 1950 Sex Assigned At Not on file [facility] Work Phone: Start: 06-02-2022 End: 06-12-2022 Exposure to SARS-CoV-2 (event) Not sure [facility] Start: 02-26-2023 End: 03-08-2023 Exposure to SARS-CoV-2 (event) Unable to assess [facility] Work Phone: Functional Status Date Assessment Result Facility NEGATED: Highlighted row Functional performance Functional status health issues are not documented Disease [facility] Work Phone: Mental Status Date Assessment Result Facility NEGATED: Highlighted row Cognitive function [Interpretation] Cognitive status health issues are not documented Disease [facility] Work Phone: History [...] 6 mo bw documented in this encounter [facility] Work Phone: Evaluation note Note Date & Type Note Facility documented in this encounter [facility] Work Phone: Evaluation note Note Date & Type Note Facility documented in this encounter [facility] Work Phone: History of Present illness Narrative Note Date & Type Note Facility History of Present illness Narrative PT C/O left wrist pain no numbness no tinglingFOR a couple of monthSEVERITY: mildCHARACTERISTIC: chronicEXACERBATION FACTOR: noneRELIEVING FACTOR: noneASSOCIATED SYMPTOMS: nonePRIOR [place]: race [facility] Work Phone: History [...] INTRESTED TO TAKE MEDS FOR ITWELLNESS EXAM [facility] Work Phone: History of Present illness Narrative Note Date & Type Note Facility History of Present illness Narrative HERE FOR F/U WITH [facility], DID NOT HAVE PNEUMONIA JUST SCAR OF SARCOIDOSIS [facility] Work Phone: History of Present illness Narrative Note Date & Type Note Facility History of Present illness Narrative PT C/O LBP WITH RADIATION TO THE RIGHT LE, AFTER RACKINGFOR 5 DAYSSEVERITY: MODERATECHARACTERISTIC: ACUTEEXACERBATION FACTOR: EXERTIONRELIEVING FACTOR: RESTASSOCIATED SYMPTOMS:TINGLING RIGHT LEPRIOR [place]: TYLRNOL, ICEING [facility] Work Phone: History of Present illness Narrative Note Date & Type Note Facility History of Present illness Narrative HERE FOR F/U FEELS BETTER [facility] Work Phone: [...] me if worse documented in this encounter [facility] Work Phone: Summary Purpose Family History No [...] DATE CREATED AUTHOR AUTHOR'S ORGANIZ ATION 01/12/2022 [facility] [place] DATE CREATED AUTHOR AUTHOR'S ORGANIZ ATION 01/12/2022 [employer] DATE CREATED AUTHOR AUTHOR'S ORGANROMMEL ATION 03/11/2023 [facility] Reason for Visit (unrecogniz ed section and content) Reason Comments Follow-up Pt covid positive to day has cough some times a minor headache was taking airborne Care Teams (unrecognized sec tion and content) Case Specialist Relationship Specialty Start Date End Date Shekhar Madrigal MD [address] [place] [address] PCP - General 04/03/19 Shekhar Madrigal MD [address] [place] [address] PCP - [employer] Medicare Advantage PCP 02/26/21 [...] BE BASED ON THE PRIMARY CLINICAL RECORDS. [facility] [employer] provides no warranty or guarantee of the accuracy or completeness of information in this document.
--- NOTE | 2023-04-09 02:00 | NURSING ---
0200 cooling blanket removed from underneath patient. core temp 99.9.
--- NOTE | 2023-04-09 02:30 | NURSING ---
Pt transported to OR.
--- NOTE | 2023-04-09 02:53 | OP.PCM_ITS ---
Report of Operation Date of Procedure: 04/09/23 Pre-Operative Diagnosis: Obstructing left ureteral calculi multiple with sepsis Post-Operative Diagnosis: The same Surgery/Procedure Performed:: Cystoscopy and left stent placement and retrograde pyelogram Description of Surgical Findings:: Patient was taken back to the operating room from the ICU he was placed on the operating table underwent MAC local sedation Gibbs catheter was removed and legs were placed in stirrups penis and testicles were prepped and draped in usual sterile fashion went into the bladder with a 21 [place] rigid cystourethroscope entire length the urethra is normal sphincter was intact prostate was absent from prior prostatectomy I then was able to identify the left ureteral orifice inside the bladder I then cannulated this with a Glidewire and assistance of a Pollick catheter immediately had pipo pus coming from the left kidney, I then used the wire and the Pollick catheter to go up to the left kidney we then performed a retrograde pyelogram to confirm the location of the wire and then after that was placed then over the wire placed a stent and a 6 [place] by 26 cm stent advance the stent over the wire and then once the wire was in good position and the stent in good position then the wire was pulled and the stent coiled in the kidney and bladder in good position. The bladder was then drained I placed a 16 [place] catheter into the bladder and patient acetic was reversed and taken back to the PACU in good condition after stent placement Surgeon: Rufus Lane Type of Anesthesia: MAC and Topical Anesth Drains: 16 fr Estimated Blood Loss (mL): 0 Admit VTE Documentation VTE Present on Admission: No VTE Mechan Device Prophylaxis: SCD's VTE Pharm Prophylaxis ordered?: No
[2023-04-09] MEDS: Lidocaine Jelly 2% 20 ML Syringe (URO-JET) 1 APPLIC (02:59)
--- NOTE | 2023-04-09 03:05 | NURSING ---
Pt brought back to room by surgery team.
--- NOTE | 2023-04-09 03:15 | PCM.HOSP.N ---
Hospitalist Note Patient already had 4 L of IV fluid. Initially blood pressure was responsive to IV fluid and it was elevated 130/80, 150/94 and 170/69. Patient pulse ox was initially 93% on room air and then 80% room air required 5 to 6 L of oxygen. Patient was emergently taken to the surgery for sepsis associated hypotension. Patient had cystoscopy and left stent placement and retrograde pyelogram. On return from surgery patient is hypotensive very probably associated from anesthetic medications. BP 83/54, temperature 99.5 and pulse ox 15 L/min. Started on low-dose of Levophed. Discussed with the nursing staff Sepsis Attestation Sepsis Alert: Yes Sepsis Attestation: Agree w/Sepsis Date exam was performed: 04/08/23 Time exam was performed: 09:15 Possible Source of Sepsis: Genitourinary Sepsis Organ Dysfunction Criteria Present: SBP < 90 mmHg or MAP < 65 mmHg, Acute Respiratory Failure (New need for BiPAP/CPAP or MV), Creatinine > 2.0 mg/dL and Lactic Acid > 2 mmol/L Fluid Resuscitation Fluid resuscitation indicated?: Yes Fluid Resuscitation ordered: 30 ml/kg fluid bolus ordered Amount of fluid ordered: 3,000 Sepsis Note Date exam was performed: 04/08/23 Time exam was performed: 11:45 Sepsis Attestation: Sepsis re-evaluation was performed Response to fluids: Non Fluid responsive hypotension and Vasopressors started
[2023-04-09] MEDS: Norepinephrine 8 MG in 0.9% Normal Saline (250mL Bag) 242 ML 9.40000000000000036 MG CONT INF (03:45)
[2023-04-09] MEDS: 0.9% Saline Lock 10 ML Syringe IV ×3 (03:53→14:17)
[2023-04-09] MEDS: Piperacil/Tazobactam 3.375 GM in 0.9% Normal Saline (50mL MB+) 50 ML IV ×2 (03:54→20:54)
--- NOTE | 2023-04-09 06:30 | RAD_ITS ---
STUDY: X-RAY CHEST REASON FOR EXAM: Male, 72 years old. CVC placement TECHNIQUE: Single AP portable view of the chest. COMPARISON: Comparison is made with prior study dated April 08, 2023. FINDINGS: A right-sided internal jugular venous catheter has been placed with the tip at the junction of the superior vena cava and right atrium. EKG electrodes are seen. Stable mild increased markings at the lung bases likely worse on the left side suggestive of bibasilar atelectasis. There is no demonstrated pleural abnormality. Normal size heart. Normal mediastinum and beto. Normal visualized pulmonary arteries. Normal visualized aortic arch and descending thoracic aorta. Normal visualized thoracic spine. Normal visualized ribs, clavicles, and shoulders. There is no demonstrated abnormality of the visualized soft tissue structures of the upper abdomen. RAD/CXR for Line Placement IMPRESSION: The tip of the right-sided internal jugular venous catheter is at the junction of the superior vena cava and right atrium. Mild degree of bibasilar atelectasis slightly worse on the left side. Electronically Signed: Aiden Giordano MD at 8:31 EST ,
--- NOTE | 2023-04-09 06:37 | PCM.OP.PRO ---
Procedure Report Date of Procedure: 04/09/23 Ultrasound-guided central venous catheter insertion Indication: Septic shock. Patient already had received a full liter of IV fluid but is still blood pressure low requiring vasopressor. Procedure note: Under ultrasound guidance, right IJ and right ICA was identified and marked. Right IJ is collapsible with no identifiable clot or fistula. Neck and upper chest area was sterilized and draped. Under aseptic precaution, right neck was locally anesthetized with lidocaine. Under ultrasound guidance, right IJ was identified, punctured and free flow of venous blood on the syringe. Guidewire was easily passed through and was dilated with a dilator. Under guidewire, triple-lumen catheter was passed through and guidewire was removed. Good blood flow return from all 3 ports of triple-lumen catheter. TLC was sutured in place with silk 2 0. Portable chest x-ray ordered and chest x-ray films reviewed. Tip of right IJ catheter in right atrium/cavoatrial junction. Triple-lumen catheter is okay to be used.
[2023-04-09 06:39] LABS: Absolute Lymphocyte Count 0.38 X10^3/uL (0.83-4.51); Absolute Neutrophil Count 9.7 X10^3/uL (2.0-7.7); Basophil# 0.03 X10^3/uL; Basophil% 0.3 % (0-1); Eosinophil# 0.01 X10^3/uL; Eosinophils% 0.1 % (0-5); Hematocrit 31.7 % (40-54); Lymphocyte # 0.38 X10^3/ul (0.83-4.51); Lymphocyte % 3.6 % (19-41); Mean Corp Hgb Conc 31.5 g/dL (32-36); Mean Corpuscular Hgb 31.1 pg (27.0-32.0); Mean Corpuscular Volume 98.4 fL (80-94); Mean Platelet Vol. 9.4 fl (6.2-12.0); Monocyte# 0.21 X10^3/uL; NRBC Flagged by Analyzer 0 % (0-5); Neutrophil # 9.67 X10^3/uL (2.7-7.7); Neutrophil % 92.3 % (47-70); POSITIVE DIFFERENTIAL YES; POSITIVE MORPHOLOGY YES; Platelet Count 119 K/mm3 (150-450); RBC Distribution Width SD 51.1 fl (35.1-43.9); Red Blood Count 3.22 M/mm3 (4.6-6.2); White Blood Count 10.5 K/mm3 (4.4-11.0)
[2023-04-09 06:46] LABS: Differential Indicated SCAN CRITERIA MET
--- NOTE | 2023-04-09 07:04 | PCM.PN.HOSP ---
Reason for Visit Reason for Visit: Diagnoses Sepsis, unspecified organism (04/08/23) Hypotension, unspecified (04/08/23) Acute pyelonephritis (04/08/23) Subjective Subjective Feeling better overall. Objective Data Objective Data Vital Signs: Vital Signs Temp Pulse Resp BP Pulse Ox O2 Del Method O2 Flow Rate 36.6 C 79 21 H 71/55 L 94 High Flow 15 04/09/23 04:00 04/09/23 05:30 04/09/23 05:30 04/09/23 04:45 04/09/23 05:30 04/09/23 04:50 04/09/23 04:50 FiO2 30 04/09/23 05:30 Oxygen Flow Rate (L/min) 15 Oxygen Delivery Method High Flow Weight: 74.6 kg Body Mass Index (BMI) 23.6 Intake & Output: Intake and Output for Last 24 Hours 04/07/23 04/08/23 04/09/23 23:59 23:59 23:59 Intake Total 3050 / 3050 1271.10 / 1271.10 Output Total 125 / 125 Balance 3050 / 2925 1146.10 / 1146.10 Lab / Micro Data 04/09/23 03:50 04/09/23 03:50 Labs: Laboratory Results - last 24 hr 04/08/23 18:00: WBC 15.6 H, RBC 3.57 L, Hgb 11.3 L, Hct 33.0 L, MCV 92.4, MCH 31.7, MCHC 34.2, RDW Std Deviation 44.8 H, RDW Coeff of Gaby 13.2, Plt Count 183, MPV 8.7, Immature Gran % (Auto) 0.900, Neut % (Auto) 96.0 H, Lymph % (Auto) 2.2 L, [place] % (Auto) 0.8, Eos % (Auto) 0.0, Baso % (Auto) 0.1, Absolute Neuts (auto) 15.0 H, Absolute Lymphs (auto) 0.35 L, Nucleated RBC % 0, Differential Comment SCANNED, Sodium 143, Potassium 3.9, Chloride 111 H, Carbon Dioxide 20.0 L, Anion Gap 12, BUN 44 H, Creatinine 3.33 H, Estim Creat Clear Calc 20.40, Est GFR (MDRD) Af Amer 24 L, Est GFR (MDRD) Non-Af 19 L, BUN/Creatinine Ratio 13.2, Glucose 118 H, Calcium 9.3, Phosphorus 1.2 L, Total Bilirubin 1.40 H, AST 40 H, ALT 35, Alkaline Phosphatase 116, Total Creatine Kinase 176, Total Protein 6.3 L, Albumin 3.1 L, Globulin 3.2, Albumin/Globulin Ratio 1.0, Lipase 21 04/08/23 18:40: Lactic Acid 6.9 H* 04/08/23 19:45: Blood Type O POSITIVE, Antibody Screen NEGATIVE 04/08/23 21:46: PT 16.8 H, INR 1.4, APTT 34.5 04/08/23 22:36: Urine Color Yellow, Urine Clarity Clear, Urine pH 5.0, Ur Specific [place] 1.015, Urine Protein 30 H, Urine Glucose (UA) Normal, Urine Ketones Negative, Urine Occult Blood 50 H, Urine Nitrite Positive H, Urine Bilirubin Negative, Urine Urobilinogen Normal, Ur Leukocyte Esterase 100 H, Urine RBC 10-25 SEEN, Urine WBC 50-100 SEEN, Ur Squamous Epith Cells 0 SEEN, Urine Bacteria 3+, Urine Mucus 0 SEEN 04/08/23 23:18: Lactic Acid 8.9 H* 04/09/23 03:50: WBC 10.5, RBC 3.22 L, Hgb 10.0 L, Hct 31.7 L, MCV 98.4 H D, MCH 31.1, MCHC 31.5 L D, RDW Std Deviation 51.1 H, RDW Coeff of Gaby 14.0, Plt Count 119 L, MPV 9.4, Immature Gran % (Auto) 1.700 H, Neut % (Auto) 92.3 H, Lymph % (Auto) 3.6 L, [place] % (Auto) 2.0, Eos % (Auto) 0.1, Baso % (Auto) 0.3, Absolute Neuts (auto) 9.7 H, Absolute Lymphs (auto) 0.38 L, Nucleated RBC % 0 Micro: Microbiology 04/08/23 18:40 Stool Stool Occult Blood (ALFONSO) - Final Occult Blood Positive 04/08/23 18:30 Mucosa - Nose SARS-CoV-2, Influenza & RSV (PCR) - Final Radiography Diagnostic Testing: Radiology Impression Chest X-Ray 04/08/23 18:40 IMPRESSION: No radiographic evidence of acute cardiopulmonary disease. Electronically Signed: Melchor Oviedo MD at 18:57 EST , Chest/Abdomen/Pelvis CT 04/08/23 19:45 IMPRESSION: 1. Diffuse scattered bilateral pulmonary nodules are stable. 2. Moderate left hydronephroureter caused by multiple distal ureteral stones. The largest measures 4 mm. Electronically Signed: Melchor Oviedo MD at 20:48 EST , Physical Exam Const alert and no apparent distress HEENT head/scalp atraumatic Neck Neck Narrative: Right IJ triple-lumen catheter in place Resp normal respiratory effort and no retractions Resp Narrative: Bibasilar crackles Cardio regular rate, regular rhythm, S1 normal heart sound and S2 normal heart sound GI normal to inspection, nondistended, normoactive bowel sounds, soft to palpation and non-tender Extremity normal to inspection Assessment & Plan Assessment/Plan (1) Sepsis associated hypotension: (2) UTI (urinary tract infection): QUALIFIERS: Urinary tract infection type: acute pyelonephritis Qualified Code(s): N10 - Acute pyelonephritis PLAN: Plan septic shock. 2/2 to pyelonephritis RIJ TLC placed 04/09 on norepi gtt and vasopressin follow up cultures Patient has since been placed on stress dose hydrocortisone. pyelonephritis. 2/2 obstructing calculi underwent cystoscopy w left stent placement and retrograde pyelogram 04/09 abx w pip/tazo KAROL POA admission creatinine 3.33, up to 3.61. Baseline around 1.6 continue IVF Mai 0.54% suspect prerenal and ischemic ATN Nephrology following. Chronic conditions: CAD status post stents: continue aspirin, Plavix, and atorvastatin. Patient not on beta-john, reason unclear follow-up with cardiology as an outpatient.3. Acute kidney injury on stage III chronic kidney disease: Baseline creatinine has been around 1.6-1.75 last year. Admitted with BUNs/creatinine 44/3.33. Hold losartan. 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 hypertension: antihypertensive held given shock Dyslipidemia: Patient on atorvastatin continued. History of prostate cancer: Status post prostatectomy, in remission. DVT prophylaxis, high risk: Heparin 500 subcutaneous twice daily. Bilateral SCDs. Discontinue if platelet count drops less than 50,000 or hemoglobin less than 8 g% Discussed with the patient's daughters at bedside. Charges/Coding Visit Charges Inpatient E&M: 75229 Subs Hosp L2
[2023-04-09 07:09] LABS: ALB/GLOB Ratio 0.8 RATIO (0.9-2.4); AST(SGOT) 40 U/L (15-37); Alanine Aminotransfer ALT/SGPT 28 U/L (16-61); Albumin, Serum 2.3 g/dL (3.2-5.0); Alkaline Phosphatase 129 U/L (45-117); Anion Gap 13 (5-15); BUN 46 mg/dL (7-18); BUN/Creat Ratio 12.7 RATIO (10-20); Calcium,Total 7.5 mg/dL (8.5-10.1); Chloride 116 mmol/L (98-107); Creatinine, Serum 3.61 mg/dL (0.70-1.30); EST Glomerular Filtration Rate 18 mL/min (>60); Est Glom Filt Rate - Afr Amer 21 mL/min (>60); Estimated Creatinine Clearance 18.82 ml/min; Globulin 2.8 g/dL (2.2-4.2); Glucose 140 mg/dL (74-106); Potassium 4.1 mmol/L (3.5-5.1); Protein, Total 5.1 g/dL (6.4-8.2); Sodium Level 145 mmol/L (136-145)
--- NOTE | 2023-04-09 07:27 | EX.PCM.CONCC ---
Assessment & Plan Assessment/Plan (1) Septic shock due to urinary tract infection: (2) Calculus of left kidney: (3) Stage III chronic kidney disease: QUALIFIERS: Chronic kidney disease stage 3 subtype: stage 3a (GFR 45-59) Qualified Code(s): N18.31 - Chronic kidney disease, stage 3a (4) Sarcoidosis of lung: PLAN: Plan RECOMMENDATIONS: 1. No further fluid administration 2. Titrate pressors as necessary. Stress dose steroids if second pressor required 3. Continue Zosyn pending cultures 4. Add coags and fibrinogen to morning labs 5. BiPAP breaks as tolerated 6. Wean oxygen as tolerated IMPRESSIONS: 1. Septic shock secondary to probable gram-negative UTI with obstructing stones Patient has had intervention overnight with ureteral stent and subsequent hypotension. This pattern is highly suggestive of a gram-negative infection. Patient is on Zosyn at this time. Will narrow antibiotic spectrum once further information is available. Patient should not receive additional fluids. Pressors can be titrated as necessary. If patient requires a second pressor, stress dose steroids will be added. 2. Acute kidney injury on CKD stage IIIa Clinical suspicion for pre and post prerenal etiology. Patient did have significant hypotension on presentation, but also had obstructing stones. Both of these are being addressed at this time. Patient does have urine output, so we will continue to monitor. No indication for renal replacement therapy at this time. 3. Acute hypoxic respiratory failure in the setting of sarcoidosis Patient does have a history of sarcoidosis last treated in March of last year. Patient does not appear to have a baseline oxygen requirement, but is currently on BiPAP. Clinical suspicion for an element of congestive heart failure secondary to fluid resuscitation associated with problem #1. Will hold off on additional IV fluids at this time. Patient will not be given Lasix given ongoing hypotension. 4. Advanced age/hyperlipidemia/history of prostate cancer/jaundice Complicates care, management, recovery and prognosis. Discussion with patient and daughter confirmed patient is a full CODE STATUS. Patient does have significant jaundice at this time, so there is some concern for development of DIC with increased bilirubin. Will check CMP in the morning. Patient does have nodules on the lung, but this may be secondary to sarcoid. This can be followed up as an outpatient. TIME: 40 minutes of additional critical care time spent addressing patient's septic shock, acute kidney injury, respiratory failure, review of all data and collaboration with care team HPI Consult Data Date of Consult: 04/09/23 HPI Narrative Reason for Consultation: Septic shock HPI Narrative: ANDRÉS GUEVARA is a 72 M, with past medical history listed below, who presents to [facility] on 04/08/2023 secondary to fever. Patient does have a history of kidney stones in the past and had reported 3 days of generalized malaise, 2 days of fevers and chills with associated nausea, vomiting and dyspnea. The 24 hours previous, patient developed significant weakness to the point he could not get out of bed. Patient was accompanied by his daughter who thought that he was not acting right and appeared more orange. In the emergency department, patient was initially afebrile, but hypotensive at 89/52 and saturating well on room air. Laboratory workup showed a white blood cell count of 15.6, hemoglobin of 11.3 and platelets of 183. Chemistry showed a bicarbonate of 20, BUN of 44 and a creatinine of 3.33. Patient did have an elevated lactate at 6.9 and liver enzymes showed an elevated bilirubin at 1.4. Chest x-ray was unremarkable, but his CT of the chest abdomen pelvis showed diffuse scattered pulmonary nodules along with a moderate left hydronephrosis with multiple distal stones. The patient was given IV fluids at 30 cc/kg given hypotension along with IV Zosyn. Patient was admitted to the intensive care unit, but persistent and hypotension. Patient was ultimately taken down for stent placement and continued to have hypotension. Patient received a total of 7 L of IV fluids with continued hypotension, so a central line was placed by the hospitalist overnight. Patient is currently on Levophed. Since being in the intensive care unit, patient has been initiated on pressors. Patient feels subjectively slightly improved to presentation. Patient's daughter believes that he is mentating slightly more appropriately. Patient does have jaundice, but daughter states that that is common for him. Patient does not have any history of liver disease that he is aware of. Patient does have a history of sarcoidosis and believes he was placed on steroids by Dr. Sanders in March of last year. Patient is not reporting any antibiotics or steroids since that time. Patient has had renal stones previously, but has never developed sepsis because of them. Patient does have a history of prostate cancer, but does not believe this is currently active. The patient is not able to provide much additional information, but per the daughter, review of systems otherwise negative from a constitutional, HEENT, respiratory, cardiovascular, GI, genitourinary, musculoskeletal, skin, neurologic, psychiatric and hematologic system unless stated above. [facility] Medical History (Updated 04/09/23 @ 07:[address] Teo Pelaez MD) Atherosclerosis of coronary artery of [place] heart without angina pectoris Calculus of left kidney Essential (primary) hypertension GERD (gastroesophageal reflux disease) History of back problems History of non-ST elevation myocardial infarction (NSTEMI) (05/22/15) Hyperlipidemia Myocardial infarct Neuralgia of groin Nonrheumatic mitral (valve) insufficiency Prostate cancer Right inguinal hernia 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 Home Medications aspirin 81 mg chewable tablet 81 mg PO DAILY@0800 09/18/18 [History Last Taken Unknown] famotidine 20 mg tablet (Acid Qa Consultant (famotidine)) 20 mg PO QHS gerd 04/11/19 [History Last Taken Unknown] ascorbate calcium (vitamin C) 500 mg tablet 500 mg PO DAILY 07/01/19 [History Last Taken Unknown] multivitamin-ferrous fumarate-folic acid 18 mg-400 mcg tablet (Centrum Complete) 1 tab PO QHS 07/01/19 [History Last Taken Unknown] ergocalciferol (vitamin D2) 1,250 mcg (50,000 unit) capsule (Vitamin D2) 1,250 mcg PO Q2W 10/07/19 [History Last Taken Unknown] losartan 100 mg tablet 100 mg PO DAILY htn #90 tabs 04/25/22 [Rx Last Taken Unknown] atorvastatin 40 mg tablet 40 mg PO .qod #45 tabs 08/17/22 [Rx Last Taken Unknown] clopidogrel 75 mg tablet 75 mg PO DAILY #90 tabs 08/30/22 [Rx Last Taken Unknown] amlodipine 2.5 mg tablet 2.5 mg PO BID #180 tabs 09/15/22 [Rx Last Taken Unknown] Allergy/AdvReac Type Severity Reaction Status Date / Time No Known Allergies Allergy Verified 04/08/23 17:12 Family History Father Hypertension Surgical History H/O shoulder surgery History of cataract surgery History of colonoscopy (2011) History of coronary artery stent placement (05/22/15) History of extraction of renal calculus History of inguinal herniorrhaphy (07/09/19) History of prostatectomy Social History Smoking Status: Never smoker alcohol intake: never substance use type: does not use caffeine: Yes Type: carbonated beverages Number of servings: 1 what type of physical activity do you participate in: walking and bicycling frequency: daily duration: 60-90 minutes/day seatbelt use: always do you feel safe at home: Yes ROS ROS Narrative See HPI Physical Exam Const alert and no apparent distress Constitutional Narrative: Good BiPAP synchrony. Jaundice noted. HEENT normocephalic and head/scalp atraumatic Eyes PERRL, EOMs intact bilaterally and conjunctivae normal Eyes Narrative: Icterus noted Neck full ROM and no lymphadenopathy Neck Narrative: Right IJ is clean, dry and intact Chest inspection of chest normal Resp normal respiratory effort Auscultation: clear to auscultation bilaterally; Negative for rales, rhonchi or wheezes Cardio S1 normal heart sound, S2 normal heart sound, no murmurs, no rub and no gallops Rate: tachycardic GI normal to inspection, nondistended, normoactive bowel sounds Extremity no clubbing, cyanosis or edema Skin no rashes or lesions noted Neuro CN's II-XII intact bilaterally and moves all extremities Neuro Narrative: Slightly slow to respond to questioning Psych cooperative Mood & Affect: flat affect Medical Records Data Attestation: I reviewed the patient's medical records Lab / Micro Data Attestation: I reviewed the patient's lab results. 04/09/23 03:50 04/09/23 03:50 Labs: Laboratory Results - last 24 hr 04/08/23 18:00: WBC 15.6 H, RBC 3.57 L, Hgb 11.3 L, Hct 33.0 L, MCV 92.4, MCH 31.7, MCHC 34.2, RDW Std Deviation 44.8 H, RDW Coeff of Gaby 13.2, Plt Count 183, MPV 8.7, Immature Gran % (Auto) 0.900, Neut % (Auto) 96.0 H, Lymph % (Auto) 2.2 L, [place] % (Auto) 0.8, Eos % (Auto) 0.0, Baso % (Auto) 0.1, Absolute Neuts (auto) 15.0 H, Absolute Lymphs (auto) 0.35 L, Nucleated RBC % 0, Differential Comment SCANNED, Sodium 143, Potassium 3.9, Chloride 111 H, Carbon Dioxide 20.0 L, Anion Gap 12, BUN 44 H, Creatinine 3.33 H, Estim Creat Clear Calc 20.40, Est GFR (MDRD) Af Amer 24 L, Est GFR (MDRD) Non-Af 19 L, BUN/Creatinine Ratio 13.2, Glucose 118 H, Calcium 9.3, Phosphorus 1.2 L, Total Bilirubin 1.40 H, AST 40 H, ALT 35, Alkaline Phosphatase 116, Total Creatine Kinase 176, Total Protein 6.3 L, Albumin 3.1 L, Globulin 3.2, Albumin/Globulin Ratio 1.0, Lipase 21 04/08/23 18:40: Lactic Acid 6.9 H* 04/08/23 19:45: Blood Type O POSITIVE, Antibody Screen NEGATIVE 04/08/23 21:46: PT 16.8 H, INR 1.4, APTT 34.5 04/08/23 22:36: Urine Color Yellow, Urine Clarity Clear, Urine pH 5.0, Ur Specific [place] 1.015, Urine Protein 30 H, Urine Glucose (UA) Normal, Urine Ketones Negative, Urine Occult Blood 50 H, Urine Nitrite Positive H, Urine Bilirubin Negative, Urine Urobilinogen Normal, Ur Leukocyte Esterase 100 H, Urine RBC 10-25 SEEN, Urine WBC 50-100 SEEN, Ur Squamous Epith Cells 0 SEEN, Urine Bacteria 3+, Urine Mucus 0 SEEN 04/08/23 23:18: Lactic Acid 8.9 H* 04/09/23 03:50: WBC 10.5, RBC 3.22 L, Hgb 10.0 L, Hct 31.7 L, MCV 98.4 H D, MCH 31.1, MCHC 31.5 L D, RDW Std Deviation 51.1 H, RDW Coeff of Gaby 14.0, Plt Count 119 L, MPV 9.4, Immature Gran % (Auto) 1.700 H, Neut % (Auto) 92.3 H, Lymph % (Auto) 3.6 L, [place] % (Auto) 2.0, Eos % (Auto) 0.1, Baso % (Auto) 0.3, Absolute Neuts (auto) 9.7 H, Absolute Lymphs (auto) 0.38 L, Nucleated RBC % 0, Sodium 145, Potassium 4.1, Chloride 116 H, Carbon Dioxide 16.0 L, Anion Gap 13, BUN 46 H, Creatinine 3.61 H, Estim Creat Clear Calc 18.82, Est GFR (MDRD) Af Amer 21 L, Est GFR (MDRD) Non-Af 18 L, BUN/Creatinine Ratio 12.7, Glucose 140 H, Calcium 7.5 L, Total Bilirubin 0.60, AST 40 H, ALT 28, Alkaline Phosphatase 129 H, Total Protein 5.1 L, Albumin 2.3 L, Globulin 2.8, Albumin/Globulin Ratio 0.8 L Micro: Microbiology 04/08/23 18:40 Stool Stool Occult Blood (ALFONSO) - Final Occult Blood Positive 04/08/23 18:30 Mucosa - Nose SARS-CoV-2, Influenza & RSV (PCR) - Final Imaging Radiology Impression Chest X-Ray 04/08/23 18:40 IMPRESSION: No radiographic evidence of acute cardiopulmonary disease. Electronically Signed: Melchor Oviedo MD at 18:57 EST , Chest/Abdomen/Pelvis CT 04/08/23 19:45 IMPRESSION: 1. Diffuse scattered bilateral pulmonary nodules are stable. 2. Moderate left hydronephroureter caused by multiple distal ureteral stones. The largest measures 4 mm. Electronically Signed: Melchor Oviedo MD at 20:48 EST , Chest x-ray following central line shows no evidence of pneumothorax and appropriate positioning Charges/Coding Procedures Hospitalists Procedures: 32645 Critical Care Addl 30 Min
[2023-04-09] MEDS: Hydrocortisone Sod Succinate 100 MG/2 ML Vial IV ×3 (08:22→20:50)
[2023-04-09] MEDS: Vasopressin 20 UNITS in 0.9% Normal Saline (50mL Bag) 24 ML 3 UNITS CONT INF ×2 (08:25→12:30)
[2023-04-09 08:46] LABS: Partial Thromboplast Time 39.3 Seconds (24.1-36.2)
[2023-04-09 08:49] LABS: Fibrinogen 512 mg/dl (203-444)
[2023-04-09 08:51] LABS: International Normalized Ratio 1.7; Prothrombin Time (Protime)PT. 19.7 SECONDS (11.7-14.9)
[2023-04-09 09:40] LABS: Urine Sodium 48 mmol/L (Not Establ.)
--- NOTE | 2023-04-09 10:26 | PCM.CONS.R ---
Assessment & Plan Assessment/Plan (1) Stage III chronic kidney disease: QUALIFIERS: Chronic kidney disease stage 3 subtype: stage 3a (GFR 45-59) Qualified Code(s): N18.31 - Chronic kidney disease, stage 3a (2) KAROL (acute kidney injury): PLAN: CKD stage IIIa, baseline creatinine around 1.5. Came in with severe septic shock. Likely ATN in the setting of sepsis. CT abdomen with left-sided hydronephrosis, he is s/p stenting. Clinically somewhat better. Continue aggressive medical therapy. Lactic acidosis. S/p IV fluid resuscitation. Pressors as needed Will hold off on renal replacement therapy for now. If no urine output in the next 1 to 2 days, may need temporary renal replacement therapy HPI Consult Data Date of Consult: 04/09/23 HPI Narrative Reason for Consultation: Acute renal failure HPI Narrative: ANDRÉS GUEVARA, is a 72 M who presents to the hospital with fever, altered mental status. Nephrology on consultation in view of acute on chronic renal failure. He has known history of CKD stage IIIa, he is well-known to me from office. Baseline creatinine is around 1.5. Presented with what seems like pyelonephritis, hydronephrosis, bacteremia, septic shock. Overnight had severe septic shock with lactate as high as 9. Was aggressively resuscitated. He is s/p ureteral stenting. Clinically somewhat better. Still on 2 pressors but breathing looks comfortable. Blood pressure is slightly better than this morning. Not much urine output. Moya catheter indwelling. Review of systems negative except above. [facility] Medical History (Updated 04/09/23 @ 10:[address] Mau Acharya MD) Atherosclerosis of coronary artery of [place] heart without angina pectoris Calculus of left kidney Essential (primary) hypertension GERD (gastroesophageal reflux disease) History of back problems History of non-ST elevation myocardial infarction (NSTEMI) (05/22/15) Hyperlipidemia Myocardial infarct Neuralgia of groin Nonrheumatic mitral (valve) insufficiency Prostate cancer Right inguinal hernia 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 Home Medications aspirin 81 mg chewable tablet 81 mg PO DAILY@0800 09/18/18 [History Last Taken Unknown] famotidine 20 mg tablet (Acid Lap Winding Machine Operator (famotidine)) 20 mg PO QHS gerd 04/11/19 [History Last Taken Unknown] ascorbate calcium (vitamin C) 500 mg tablet 500 mg PO DAILY 05/05/20 [History Last Taken Unknown] multivitamin-ferrous fumarate-folic acid 18 mg-400 mcg tablet (Centrum Complete) 1 tab PO QHS 07/01/19 [History Last Taken Unknown] ergocalciferol (vitamin D2) 1,250 mcg (50,000 unit) capsule (Vitamin D2) 1,250 mcg PO Q2W 10/07/19 [History Last Taken Unknown] losartan 100 mg tablet 100 mg PO DAILY htn #90 tabs 04/25/22 [Rx Last Taken Unknown] atorvastatin 40 mg tablet 40 mg PO .qod #45 tabs 08/17/22 [Rx Last Taken Unknown] clopidogrel 75 mg tablet 75 mg PO DAILY #90 tabs 08/30/22 [Rx Last Taken Unknown] amlodipine 2.5 mg tablet 2.5 mg PO BID #180 tabs 09/15/22 [Rx Last Taken Unknown] Allergy/AdvReac Type Severity Reaction Status Date / Time No Known Allergies Allergy Verified 04/08/23 17:12 Family History Father Hypertension Surgical History H/O shoulder surgery History of cataract surgery History of colonoscopy (2011) History of coronary artery stent placement (05/22/15) History of extraction of renal calculus History of inguinal herniorrhaphy (07/09/19) History of prostatectomy Social History Smoking Status: Never smoker alcohol intake: never substance use type: does not use caffeine: Yes Type: carbonated beverages Number of servings: 1 what type of physical activity do you participate in: walking and bicycling frequency: daily duration: 60-90 minutes/day seatbelt use: always do you feel safe at home: Yes Physical Exam Narrative Alert awake oriented x 3 no obvious distress no pallor no icterus no JVD s1s2 no murmurs lungs clear abdomen soft no organomegaly no edema no cyanosis moya + Lab / Micro Data 04/09/23 03:50 04/09/23 03:50 Labs: Laboratory Results - last 24 hr 04/08/23 18:00: WBC 15.6 H, RBC 3.57 L, Hgb 11.3 L, Hct 33.0 L, MCV 92.4, MCH 31.7, MCHC 34.2, RDW Std Deviation 44.8 H, RDW Coeff of Gaby 13.2, Plt Count 183, MPV 8.7, Immature Gran % (Auto) 0.900, Neut % (Auto) 96.0 H, Lymph % (Auto) 2.2 L, Benzie % (Auto) 0.8, Eos % (Auto) 0.0, Baso % (Auto) 0.1, Absolute Neuts (auto) 15.0 H, Absolute Lymphs (auto) 0.35 L, Nucleated RBC % 0, Differential Comment SCANNED, Sodium 143, Potassium 3.9, Chloride 111 H, Carbon Dioxide 20.0 L, Anion Gap 12, BUN 44 H, Creatinine 3.33 H, Estim Creat Clear Calc 20.40, Est GFR (MDRD) Af Amer 24 L, Est GFR (MDRD) Non-Af 19 L, BUN/Creatinine Ratio 13.2, Glucose 118 H, Calcium 9.3, Phosphorus 1.2 L, Total Bilirubin 1.40 H, AST 40 H, ALT 35, Alkaline Phosphatase 116, Total Creatine Kinase 176, Total Protein 6.3 L, Albumin 3.1 L, Globulin 3.2, Albumin/Globulin Ratio 1.0, Lipase 21 04/08/23 18:40: Lactic Acid 6.9 H* 04/08/23 19:45: Blood Type O POSITIVE, Antibody Screen NEGATIVE 04/08/23 21:46: PT 16.8 H, INR 1.4, APTT 34.5 04/08/23 22:36: Urine Color Yellow, Urine Clarity Clear, Urine pH 5.0, Ur Specific [place] 1.015, Urine Protein 30 H, Urine Glucose (UA) Normal, Urine Ketones Negative, Urine Occult Blood 50 H, Urine Nitrite Positive H, Urine Bilirubin Negative, Urine Urobilinogen Normal, Ur Leukocyte Esterase 100 H, Urine RBC 10-25 SEEN, Urine WBC 50-100 SEEN, Ur Squamous Epith Cells 0 SEEN, Urine Bacteria 3+, Urine Mucus 0 SEEN 04/08/23 23:18: Lactic Acid 8.9 H* 04/09/23 03:50: WBC 10.5, RBC 3.22 L, Hgb 10.0 L, Hct 31.7 L, MCV 98.4 H D, MCH 31.1, MCHC 31.5 L D, RDW Std Deviation 51.1 H, RDW Coeff of Gaby 14.0, Plt Count 119 L, MPV 9.4, Immature Gran % (Auto) 1.700 H, Neut % (Auto) 92.3 H, Lymph % (Auto) 3.6 L, Benzie % (Auto) 2.0, Eos % (Auto) 0.1, Baso % (Auto) 0.3, Absolute Neuts (auto) 9.7 H, Absolute Lymphs (auto) 0.38 L, Nucleated RBC % 0, Diff Path Review June, Sodium 145, Potassium 4.1, Chloride 116 H, Carbon Dioxide 16.0 L, Anion Gap 13, BUN 46 H, Creatinine 3.61 H, Estim Creat Clear Calc 18.82, Est GFR (MDRD) Af Amer 21 L, Est GFR (MDRD) Non-Af 18 L, BUN/Creatinine Ratio 12.7, Glucose 140 H, Calcium 7.5 L, Total Bilirubin 0.60, AST 40 H, ALT 28, Alkaline Phosphatase 129 H, Total Protein 5.1 L, Albumin 2.3 L, Globulin 2.8, Albumin/Globulin Ratio 0.8 L 04/09/23 07:37: PT 19.7 H, INR 1.7, APTT 39.3 H, Fibrinogen 512 H 04/09/23 08:30: Ur Random Sodium 48, Urine Creatinine 221.00 Micro: Microbiology 04/08/23 18:50 Blood Culture (Wb) - Anticubital Right Blood Culture - Preliminary 04/08/23 18:58 Blood Culture (Wb) - Anticubital Left Blood Culture - Preliminary 04/08/23 18:40 Stool Stool Occult Blood (ALFONSO) - Final Occult Blood Positive 04/08/23 18:30 Mucosa - Nose SARS-CoV-2, Influenza & RSV (PCR) - Final Imaging Radiology Impression Chest X-Ray 04/08/23 18:40 IMPRESSION: No radiographic evidence of acute cardiopulmonary disease. Electronically Signed: Melchor Oviedo MD at 18:57 EST , Chest/Abdomen/Pelvis CT 04/08/23 19:45 IMPRESSION: 1. Diffuse scattered bilateral pulmonary nodules are stable. 2. Moderate left hydronephroureter caused by multiple distal ureteral stones. The largest measures 4 mm. Electronically Signed: Melchor Oviedo MD at 20:48 EST , Chest X-Ray 04/09/23 06:30 IMPRESSION: The tip of the right-sided internal jugular venous catheter is at the junction of the superior vena cava and right atrium. Mild degree of bibasilar atelectasis slightly worse on the left side. Electronically Signed: Aiden Giordano MD at 8:31 EST ,
[2023-04-09] MEDS: Heparin Injection (Vial) 5,000 UNIT/ML VIAL 5000 UNIT SC ×2 (10:29→20:50)
--- NOTE | 2023-04-09 10:48 | CASEMGMT ---
SIMON DE SANTIAGO Assessment: Face to Face with pt for initial transition planning/care coordination assessment. RN ANYI introduced self and role at [facility], pt voices understanding and consents to assessment. Pt is A&O x4 and answers all questions appropriately at this time. Pt lying in bed with bipap on in no distress. Pt family at bedside. Pt reports he wants to get back to work post dc. Care providers, pharmacy, and demographics verified/updated. Admitting Dx: sepsis with UTI PCP:Marisa Specialists:Tommy puljadiel; Ariana, uro; Marck, nephro; Allie Guerrero [facility]ermat[facility] Preferred [facility]acy: [facility] Insurance: [employer] Prescription Benefit: yes LNOK: Senait Rojas, dtr; Reji Corona, son Living Arrangements: Pt lives alone in a single story home with 2 steps to enter. Pt reports being I in ADL's and denies concerns at home. Pt is at [facility]. Transportation: Pt drives self and denies concerns with transportation. DME:walker, w/c- does not use [facility] HHC/SNF: Denies hx of Pt states no concerns with going home at time of dc. Pt fails mobility today, no therapy ordered currently. Pt states no further concerns/needs. CM to follow. Advised pt to ask CM if any further question/concerns/needs arise, voices understanding. Pt Goal: Home Plan: TBD
[2023-04-09] MEDS: Ascorbic Acid 500 MG Tablet PO (11:09)
[2023-04-09] MEDS: Clopidogrel Bisulfate 75 MG Tablet PO (11:09)
[2023-04-09] MEDS: Aspirin 81 MG TAB.CHEW PO (11:09)
[2023-04-09] MEDS: Norepinephrine 8 MG in 0.9% Normal Saline (250mL Bag) 242 ML 37.5 MG CONT INF (11:11)
[2023-04-09 13:45] LABS: Pathologist Review Reviewed
[2023-04-09] MEDS: Atorvastatin Calcium 40 MG Tablet PO (20:50)
--- NOTE | 2023-04-09 23:17 | CPS ---
PAP pressures increased to 16/10 for pt comfort.
[2023-04-10] VITALS (31 sets, daily range): BP systolic 89–126; BP diastolic 50–78; PULSE 73–95; RESP 12–28; TEMP 36.4–37.3; O2SAT 89–97; BMI 23.7
--- NOTE | 2023-04-10 01:05 | VDLE_ITS ---
Reason For Study: Elevated D Dimer RIGHT LEFT GSV is normal. GSV is normal. CFV is compressible, spontaneous, phasic, CFV is compressible, spontaneous, phasic, competent and demonstrates normal competent, and demonstrates normal augmentation. augmentation. FV is compressible, spontaneous, phasic, FV is compressible, spontaneous, phasic, competent and demonstrates normal competent and demonstrates normal augmentation. augmentation. POP V is compressible, spontaneous, phasic, POP V is compressible, spontaneous, phasic, competent and demonstrates normal competent and demonstrates normal augmentation. augmentation. T/P Trunk is compressible. T/P Trunk is compressible. PTV is compressible. PTV is compressible. RT PerV is compressible. LT PerV is compressible. Procedure This is a venous duplex using B-mode, color flow and spectral Doppler. Exam performed portable in ICU/CCU. The exam was diagnostic. A preliminary report was called and/or faxed to [employer] [facility]. VL/Venous Duplex US - Edgardo Extrem Interpretation Summary Deep veins of the bilateral lower extremities are patent and compressible segme ntally. There is no evidence of bilateral lower extremity deep vein thrombosis. The bilateral great saphenous veins appear patent and compressible segmentally. Ordering Physician: Jeremy Melo Performed By: Evan Tomlin RVT
[2023-04-10 03:42] LABS: Hematocrit 28.5 % (40-54); Hemoglobin 9.7 g/dL (13.0-16.5); Mean Corpuscular Hgb 31.9 pg (27.0-32.0); Mean Corpuscular Volume 93.8 fL (80-94); Mean Platelet Vol. 9.9 fl (6.2-12.0); POSITIVE COUNT YES; POSITIVE DIFFERENTIAL YES; POSITIVE MORPHOLOGY YES; Platelet Count 82 K/mm3 (150-450); RBC Distribution Width CV 14.6 % (11.6-14.6); RBC Distribution Width SD 49.6 fl (35.1-43.9); Red Blood Count 3.04 M/mm3 (4.6-6.2)
[2023-04-10 03:57] LABS: ALB/GLOB Ratio 0.6 RATIO (0.9-2.4); AST(SGOT) 402 U/L (15-37); Alanine Aminotransfer ALT/SGPT 500 U/L (16-61); Albumin, Serum 2.1 g/dL (3.2-5.0); Alkaline Phosphatase 71 U/L (45-117); Anion Gap 10 (5-15); BUN 59 mg/dL (7-18); BUN/Creat Ratio 17.5 RATIO (10-20); Calcium,Total 7.1 mg/dL (8.5-10.1); Chloride 120 mmol/L (98-107); Creatinine, Serum 3.38 mg/dL (0.70-1.30); Differential Indicated MANUAL DIFF; EST Glomerular Filtration Rate 19 mL/min (>60); Est Glom Filt Rate - Afr Amer 23 mL/min (>60); Globulin 3.3 g/dL (2.2-4.2); Glucose 153 mg/dL (74-106); Potassium 4.6 mmol/L (3.5-5.1); Protein, Total 5.4 g/dL (6.4-8.2); Sodium Level 147 mmol/L (136-145); White Blood Count 30.2 K/mm3 (4.4-11.0)
[2023-04-10 04:42] LABS: Metamyelocyte 3 % (0-1); Myelocyte 3 % (0-0); Neutrophil-Band 15 % (0-5); Neutrophil-Segmented 59 % (47-70); Total Cells Counted 100 (MANUAL DIFF)
[2023-04-10 04:43] LABS: Differential Comment SCANNED; Lymphocyte 2 % (19-41); Monocyte 17 % (0-10); Promyelocyte 1 % (0-0)
[2023-04-10 04:44] LABS: Absolute Neutrophil Count 22.3 X10^3/uL (2.0-7.7); Platelet Estimate SLT DEC (ADEQ); Smudge Cells RARE
[2023-04-10 05:03] LABS: D-Dimer Quantitative (DVT/PE) > 20.00 FEU/ug/m (0.27-0.49)
[2023-04-10] MEDS: Hydrocortisone Sod Succinate 100 MG/2 ML Vial IV (06:36)
[2023-04-10] MEDS: 0.9% Saline Lock 10 ML Syringe IV ×3 (06:37→20:22)
[2023-04-10] MEDS: Enoxaparin 80 MG/0.8 ML Syringe 75 MG SC (06:37)
--- NOTE | 2023-04-10 07:00 | PN.HOSP_ITS ---
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 Strength improving with utilizing IS. Objective Data Objective Data Vital Signs: Vital Signs Temp Pulse Resp BP Pulse Ox O2 Del Method O2 Flow Rate 37.0 C 85 28 H 107/62 91 High Flow 8 04/10/23 04:00 04/10/23 06:00 04/10/23 06:00 04/10/23 06:00 04/10/23 06:00 04/10/23 06:00 04/10/23 06:00 FiO2 30 04/10/23 01:00 Oxygen Flow Rate (L/min) 8 Oxygen Delivery Method High Flow Weight: 75.1 kg Body Mass Index (BMI) 23.7 Intake & Output: Intake and Output for Last 24 Hours 04/08/23 04/09/23 04/10/23 23:59 23:59 23:59 Intake Total 3050 / 3050 2219.26 / 2219.26 390 / 390 Output Total 920 / 920 490 / 490 Balance 3050 / 2925 1299.26 / 1299.26 -100 / -100 Lab / Micro Data 04/10/23 03:10 04/10/23 03:10 Labs: Laboratory Results - last 24 hr 04/09/23 03:50: Diff Path Review Reviewed, Sodium 145, Potassium 4.1, Chloride 116 H, Carbon Dioxide 16.0 L, Anion Gap 13, BUN 46 H, Creatinine 3.61 H, Estim Creat Clear Calc 18.82, Est GFR (MDRD) Af Amer 21 L, Est GFR (MDRD) Non-Af 18 L, BUN/Creatinine Ratio 12.7, Glucose 140 H, Calcium 7.5 L, Total Bilirubin 0.60, AST 40 H, ALT 28, Alkaline Phosphatase 129 H, Total Protein 5.1 L, Albumin 2.3 L , Globulin 2.8, Albumin/Globulin Ratio 0.8 L 04/09/23 07:37: PT 19.7 H, INR 1.7, APTT 39.3 H, Fibrinogen 512 H 04/09/23 08:30: Ur Random Sodium 48, Urine Creatinine 221.00 04/10/23 03:10: WBC 30.2 H*, RBC 3.04 L, Hgb 9.7 L, Hct 28.5 L, MCV 93.8, MCH 31.9, MCHC 34.0 D, RDW Std Deviation 49.6 H, RDW Coeff of Gaby 14.6, Plt Count 82 L, MPV 9.9, Neut % (Auto) Not Reportable, Absolute Neuts (auto) 22.3 H, A bsolute Lymphs (auto) 0.60 L, Total Counted 100, Neutrophils % (Manual) 59, Band Neutrophils % 15 H, Lymphocytes % (Manual) 2 L, Monocytes % (Manual) 17 H, Metamyelocytes % 3 H, Myelocytes % 3 H, Promyelocytes % 1 H, Differential Comment SCANNED, Diff Path Review May foll, Smudge Cells RARE, Platelet Estimate SLT DEC, D-Dimer Quant (PE/DVT) > 20.00 H*, Sodium 147 H, Potassium 4.6, Chloride 120 H, Carbon Dioxide 17.0 L, Anion Gap 10, BUN 59 H, Creatinine 3.38 H , Estim Creat Clear Calc 20.10, Est GFR (MDRD) Af Amer 23 L, Est GFR (MDRD) Non- Af 19 L, BUN/Creatinine Ratio 17.5, Glucose 153 H, Calcium 7.1 L, Total Bilirubin 1.30 H, AST 402 H, ALT 500 H, Alkaline Phosphatase 71, Total Protein 5.4 L, Albumin 2.1 L, Globulin 3.3, Albumin/Globulin Ratio 0.6 L Micro: Microbiology 04/08/23 18:50 Blood Culture (Wb) - Anticubital Right Blood Culture - Preliminary 04/08/23 18:58 Blood Culture (Wb) - Anticubital Left Blood Culture - Preliminary 04/08/23 18:40 Stool Stool Occult Blood (ALFONSO) - Final Occult Blood Positive 04/08/23 18:30 Mucosa - Nose SARS-CoV-2, Influenza & RSV (PCR) - Final Radiography Diagnostic Testing: Radiology Impression Chest X-Ray 04/09/23 06:30 IMPRESSION: The tip of the right-sided internal jugular venous catheter is at the junction of the superior vena cava and right atrium. Mild degree of bibasilar atelectasis slightly worse on the left side. Electronically Signed: Aiden Giordano MD at 8:31 EST , Physical Exam Const alert and no apparent distress Constitutional Narrative: up in bed. afebrile. Resp normal respiratory effort and no retractions Resp Narrative: bibasilar crackles Cardio regular rate, regular rhythm, S1 normal heart sound and S2 normal heart sound GI normal to inspection, nondistended, normoactive bowel sounds and soft to palpation Neuro Sensorium / Orientation: awake and alert Psych affect normal Assessment & Plan Assessment/Plan (1) Sepsis associated hypotension: (2) UTI (urinary tract infection): QUALIFIERS: Urinary tract infection type: acute pyelonephritis Qualified Code(s): N10 - Acute pyelonephritis PLAN: Plan septic shock. * 2/2 to pyelonephritis * RIJ TLC placed 04/09 * was on norepi gtt and vasopressin, since weaned off * follow up cultures * Continue hydrocortisone. pyelonephritis. * 2/2 obstructing calculi * underwent cystoscopy w left stent placement and retrograde pyelogram 04/09 * abx w pip/tazo KAROL * POA * admission creatinine 3.33, up to 3.61, down to 3.38. Baseline around 1.6 * continue IVF * FENA 0.54% * suspect prerenal and ischemic ATN * Nephrology following. Transaminitis * developing. AST and ALT up to 402 and 500, respectively. * suspect due to septic shock. * monitor Leukocytosis * dramatic jump today. Likely 2/2 steroids that were started 04/09 * monitor Thrombocytopenia * trending down during course of admission. Suspect due to underlying sepsis and DIC. * monitor * doubt TTP, HIT DIC, suspected * noted coagulopathy with elevated aPTT, PT, Fibrinogen, D-dimer. Thrombocytopenia, worsening anemia. * consider idania-smear, LDH, haptoglobin if concern for hemolysis Chronic conditions: * CAD status post stents: continue aspirin, Plavix, and atorvastatin. Patient not on beta-john, reason unclear follow-up with cardiology as an outpatient.3. * hypertension: antihypertensive held given shock * Dyslipidemia: Patient on atorvastatin continued. * History of prostate cancer: Status post prostatectomy, in remission. DVT prophylaxis, high risk: SCDs DW pt's dtr at bedside. Charges/Coding Visit Charges Inpatient E&M: 27458 Subs Hosp L2
--- NOTE | 2023-04-10 07:10 | PN.CC_ITS ---
Assessment & Plan Assessment/Plan (1) Septic shock due to urinary tract infection: (2) Calculus of left kidney: (3) Stage III chronic kidney disease: QUALIFIERS: Chronic kidney disease stage 3 subtype: stage 3a (GFR 45-59) Qualified Code(s): N18.31 - Chronic kidney disease, stage 3a (4) Sarcoidosis of lung: PLAN: Plan RECOMMENDATIONS: 1. Await lower extremity Dopplers. Diuretics versus continued anticoagulation 2. Wean stress dose steroids 3. Continue Zosyn pending sensitivities 4. Okay to advance diet 5. BiPAP rescue as needed 6. Wean oxygen as tolerated IMPRESSIONS: 1. Septic shock secondary to probable gram-negative UTI with obstructing stones Patient has had intervention overnight with ureteral stent and subsequent hypotension. This pattern is highly suggestive of a gram-negative infection and blood cultures are already positive. Patient is on Zosyn at this time. Will narrow antibiotic spectrum once further information is available. Patient should not receive additional fluids. Patient would benefit from free water p.o. Stress dose steroids will be weaned. 2. Acute kidney injury on CKD stage IIIa Slightly improved. Clinical suspicion for pre and post prerenal etiology. Patient did have significant hypotension on presentation, but also had obstructing stones. Both of these are being addressed at this time. Patient does have urine output, so we will continue to monitor. No indication for renal replacement therapy at this time. Nephrology following. Possible Lasix later today 3. Acute hypoxic respiratory failure in the setting of sarcoidosis Patient does have a history of sarcoidosis last treated in March of last year. Patient does not appear to have a baseline oxygen requirement, but is currently on BiPAP. Clinical suspicion for an element of congestive heart failure secondary to fluid resuscitation associated with problem #1. Will hold off on additional IV fluids at this time. Patient may be a candidate for Lasix if no DVT is found. 4. Advanced age/hyperlipidemia/history of prostate cancer/jaundice Complicates care, management, recovery and prognosis. Discussion with patient and daughter confirmed patient is a full CODE STATUS. Jaundice does appear to be improved. Patient does have nodules on the lung, but this may be secondary to sarcoid. This can be followed up as an outpatient. Subjective Subjective Patient did okay overnight. Patient did attempt to avoid BiPAP for most of the evening requiring 8 L to maintain saturations. Patient did have an episode of significant pain in the medial calf bilaterally. Given concern for DVT, one- time dose of Lovenox was ordered. Patient has remained hemodynamically stable and was able to be taken off of all pressors by 4 PM yesterday. Objective Data Objective Data Both blood cultures have come back positive in less than 24 hours with gram- negative rods. Species and sensitivities are still pending. Vital Signs: Vital Signs Temp Pulse Resp BP Pulse Ox O2 Del Method O2 Flow Rate 37.0 C 77 23 H 101/64 93 High Flow 8 04/10/23 04:00 04/10/23 07:00 04/10/23 07:00 04/10/23 07:00 04/10/23 07:00 04/10/23 07:00 04/10/23 07:00 FiO2 30 04/10/23 01:00 Oxygen Flow Rate (L/min) 8 Oxygen Delivery Method High Flow Weight: 75.1 kg Body Mass Index (BMI) 23.7 Intake & Output: Intake and Output for Last 24 Hours 04/08/23 04/09/23 04/10/23 23:59 23:59 23:59 Intake Total 3050 / 3050 2219.26 / 2219.26 390 / 390 Output Total 920 / 920 490 / 490 Balance 3050 / 2925 1299.26 / 1299.26 -100 / -100 Lab / Micro Data Attestation: I reviewed the patient's lab results. 04/10/23 03:10 04/10/23 03:10 Labs: Laboratory Results - last 24 hr 04/09/23 03:50: Diff Path Review Reviewed 04/09/23 07:37: PT 19.7 H, INR 1.7, APTT 39.3 H, Fibrinogen 512 H 04/09/23 08:30: Ur Random Sodium 48, Urine Creatinine 221.00 04/10/23 03:10: WBC 30.2 H*, RBC 3.04 L, Hgb 9.7 L, Hct 28.5 L, MCV 93.8, MCH 31.9, MCHC 34.0 D, RDW Std Deviation 49.6 H, RDW Coeff of Gaby 14.6, Plt Count 82 L, MPV 9.9, Neut % (Auto) Not Reportable, Absolute Neuts (auto) 22.3 H, Absolute Lymphs (auto) 0.60 L, Total Counted 100, Neutrophils % (Manual) 59, Band Neutrophils % 15 H, Lymphocytes % (Manual) 2 L, Monocytes % (Manual) 17 H, Metamyelocytes % 3 H, Myelocytes % 3 H, Promyelocytes % 1 H, Differential Comment SCANNED, Diff Path Review May foll, Smudge Cells RARE, Platelet Estimate SLT DEC, D-Dimer Quant (PE/DVT) > 20.00 H*, Sodium 147 H, Potassium 4.6, Chloride 120 H, Carbon Dioxide 17.0 L, Anion Gap 10, BUN 59 H, Creatinine 3.38 H , Estim Creat Clear Calc 20.10, Est GFR (MDRD) Af Amer 23 L, Est GFR (MDRD) Non- Af 19 L, BUN/Creatinine Ratio 17.5, Glucose 153 H, Calcium 7.1 L, Total Bilirubin 1.30 H, AST 402 H, ALT 500 H, Alkaline Phosphatase 71, Total Protein 5.4 L, Albumin 2.1 L, Globulin 3.3, Albumin/Globulin Ratio 0.6 L Micro: Microbiology 04/08/23 18:50 Blood Culture (Wb) - Anticubital Right Blood Culture - Preliminary 04/08/23 18:58 Blood Culture (Wb) - Anticubital Left Blood Culture - Preliminary 04/08/23 18:40 Stool Stool Occult Blood (ALFONSO) - Final Occult Blood Positive 04/08/23 18:30 Mucosa - Nose SARS-CoV-2, Influenza & RSV (PCR) - Final Radiography Diagnostic Testing: Radiology Impression Chest X-Ray 04/09/23 06:30 IMPRESSION: The tip of the right-sided internal jugular venous catheter is at the junction of the superior vena cava and right atrium. Mild degree of bibasilar atelectasis slightly worse on the left side. Electronically Signed: Aiden Giordano MD at 8:31 EST , Physical Exam Const alert and no apparent distress Constitutional Narrative: Good BiPAP synchrony. Jaundice improved. HEENT normocephalic and head/scalp atraumatic Eyes PERRL, EOMs intact bilaterally and conjunctivae normal Eyes Narrative: Icterus noted Neck full ROM and no lymphadenopathy Neck Narrative: Right IJ is clean, dry and intact Chest inspection of chest normal Resp normal respiratory effort Auscultation: clear to auscultation bilaterally; Negative for rales, rhonchi or wheezes Cardio regular rate, S1 normal heart sound, S2 normal heart sound, no murmurs, no rub and no gallops GI normal to inspection, nondistended, normoactive bowel sounds Extremity no clubbing, cyanosis or edema Extremity Narrative: Tenderness to palpation on the medial gastrocnemius head. Increased tenderness with dorsiflexion. No palpable cords. Skin no rashes or lesions noted Neuro CN's II-XII intact bilaterally and moves all extremities Neuro Narrative: Responding more appropriately today Psych cooperative Mood & Affect: flat affect Charges/Coding Visit Charges Inpatient E&M: 43126 Subs Hosp L3
--- NOTE | 2023-04-10 07:25 | PCM.CONS.B ---
Consult Date of Consult: 04/10/23 Reason for Consult 72-year-old male who came in with septic shock with a kidney stone underwent emergency stent placement the other day, he still in critical condition but at least more stable in the ICU he is on BiPAP and high flow oxygen he received a significant amount of fluid for resuscitation for septic shock and now has compromised pulmonary function because of this but hopefully with Lasix etc. and ICU care he will improve his blood pressure is much better white blood count still fairly high. No plan to do any intervention for his stones until he is completely resolved from his sepsis and shock. Will follow peripherally
[2023-04-10] MEDS: Aspirin 81 MG TAB.CHEW PO (07:54)
[2023-04-10] MEDS: Clopidogrel Bisulfate 75 MG Tablet PO (07:54)
[2023-04-10] MEDS: Ascorbic Acid 500 MG Tablet PO (07:54)
[2023-04-10] MEDS: Piperacil/Tazobactam 3.375 GM in 0.9% Normal Saline (50mL MB+) 50 ML IV ×2 (09:13→20:21)
[2023-04-10] MEDS: Furosemide 40 MG/4 ML Vial IV (10:07)
[2023-04-10] MEDS: Hydrocortisone Sod Succinate 100 MG/2 ML Vial 50 MG IV ×2 (13:31→20:21)
[2023-04-10 14:25] LABS: Pathologist Review Reviewed
--- NOTE | 2023-04-10 14:27 | PN.RENAL_ITS ---
Subjective Subjective Sitting in chair, just finished walking with therapy. Reports feeling better today. Daughter at bedside. Objective Data Objective Data Vital Signs: Vital Signs Temp Pulse Resp BP Pulse Ox O2 Del Method O2 Flow Rate 98.1 F 82 22 H 94/78 93 High Flow 8 04/10/23 14:00 04/10/23 14:00 04/10/23 14:00 04/10/23 14:00 04/10/23 14:00 04/10/23 14:00 04/10/23 14:00 FiO2 35 04/10/23 07:12 Oxygen Flow Rate (L/min) 8 Oxygen Delivery Method High Flow Weight: 75.1 kg Body Mass Index (BMI) 23.7 Intake & Output: Intake and Output for Last 24 Hours 04/08/23 04/09/23 04/10/23 23:59 23:59 23:59 Intake Total 3050 / 3050 2219.26 / 2219.26 780 / 780 Output Total 920 / 920 1740 / 1740 Balance 3050 / 2925 1299.26 / 1299.26 -960 / -960 Lab / Micro Data 04/10/23 03:10 04/10/23 03:10 Labs: Laboratory Results - last 24 hr 04/10/23 03:10: WBC 30.2 H*, RBC 3.04 L, Hgb 9.7 L, Hct 28.5 L, MCV 93.8, MCH 31.9, MCHC 34.0 D, RDW Std Deviation 49.6 H, RDW Coeff of Gaby 14.6, Plt Count 82 L, MPV 9.9, Neut % (Auto) Not Reportable, Absolute Neuts (auto) 22.3 H, Absolute Lymphs (auto) 0.60 L, Total Counted 100, Neutrophils % (Manual) 59, Band Neutrophils % 15 H, Lymphocytes % (Manual) 2 L, Monocytes % (Manual) 17 H, Metamyelocytes % 3 H, Myelocytes % 3 H, Promyelocytes % 1 H, Differential Comment SCANNED, Diff Path Review Reviewed, Smudge Cells RARE, Platelet Estimate SLT DEC, D-Dimer Quant (PE/DVT) > 20.00 H*, Sodium 147 H, Potassium 4.6, Chloride 120 H, Carbon Dioxide 17.0 L, Anion Gap 10, BUN 59 H, Creatinine 3.38 H , Estim Creat Clear Calc 20.10, Est GFR (MDRD) Af Amer 23 L, Est GFR (MDRD) Non- Af 19 L, BUN/Creatinine Ratio 17.5, Glucose 153 H, Calcium 7.1 L, Total Bilirubin 1.30 H, AST 402 H, ALT 500 H, Alkaline Phosphatase 71, Total Protein 5.4 L, Albumin 2.1 L, Globulin 3.3, Albumin/Globulin Ratio 0.6 L Micro: Microbiology 04/08/23 18:50 Blood Culture (Wb) - Anticubital Right Blood Culture - Preliminary 04/08/23 18:58 Blood Culture (Wb) - Anticubital Left Blood Culture - Preliminary GNR lactose integration assistant 04/08/23 22:36 Urine, Clean Catch Urine Culture - Preliminary GNR lactose integration assistant 04/08/23 18:40 Stool Stool Occult Blood (ALFONSO) - Final Occult Blood Positive 04/08/23 18:30 Mucosa - Nose SARS-CoV-2, Influenza & RSV (PCR) - Final Physical Exam Narrative Alert awake oriented x 3 no obvious distress s1s2 no murmurs lungs clear abdomen soft no edema moya + Assessment & Plan Assessment/Plan (1) Stage III chronic kidney disease: QUALIFIERS: Chronic kidney disease stage 3 subtype: stage 3a (GFR 45-59) Qualified Code(s): N18.31 - Chronic kidney disease, stage 3a (2) KAROL (acute kidney injury): PLAN: - CKD stage IIIa, baseline creatinine around 1.5. Patient was admitted with severe septic shock. KAROL likely ATN in the setting of sepsis, hypotension. CT abdomen with left-sided hydronephrosis, he is s/p stenting 04/09. Clinically improving. Off Levophed drip as of last evening. SCr 3.61mg/dL 04/09--> today Scr 3.38. 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 Patient has good urine output, so far ~1.7L today - Patient has a history of hypophosphatemia in past and was on phos supplements. Will check phosphorus level tomorrow. - Lactic acidosis. S/p IV fluid resuscitation. Pressors as needed -Septic shock secondary to UTI with obstructing stones; ureteral stent placement. Patient is on IV antibiotics, Zosyn. - acute hypoxic respiratory failure; Required bipap overnight, received dose lasix this am, now on O2.
[2023-04-10] MEDS: Famotidine 20 MG Tablet PO (20:21)
[2023-04-10] MEDS: Glycerin/Hypromellose/PEG400 15 ml Bottle 1 DRP EACH EYE (21:06)
[2023-04-11] VITALS (19 sets, daily range): BP systolic 111–132; BP diastolic 67–84; PULSE 63–88; RESP 16–27; TEMP 36.4–37.3; O2SAT 91–96; BMI 23.1
[2023-04-11 03:32] LABS: Absolute Lymphocyte Count 0.61 X10^3/uL (0.83-4.51); Absolute Neutrophil Count 41.2 X10^3/uL (2.0-7.7); Basophil# 0.01 X10^3/uL; Hematocrit 27.7 % (40-54); Hemoglobin 9.3 g/dL (13.0-16.5); Lymphocyte # 0.61 X10^3/ul (0.83-4.51); Lymphocyte % 1.4 % (19-41); Mean Corp Hgb Conc 33.6 g/dL (32-36); Mean Corpuscular Hgb 31.2 pg (27.0-32.0); Mean Platelet Vol. 10.2 fl (6.2-12.0); Monocyte% 3.8 % (0-10); NRBC Flagged by Analyzer 0 % (0-5); Neutrophil # 41.17 X10^3/uL (2.7-7.7); POSITIVE COUNT YES; POSITIVE DIFFERENTIAL YES; POSITIVE MORPHOLOGY YES; Platelet Count 65 K/mm3 (150-450); RBC Distribution Width CV 14.6 % (11.6-14.6); RBC Distribution Width SD 49.9 fl (35.1-43.9); Red Blood Count 2.98 M/mm3 (4.6-6.2)
[2023-04-11 03:36] LABS: Differential Indicated SCAN CRITERIA MET; White Blood Count 44.3 K/mm3 (4.4-11.0)
[2023-04-11 04:05] LABS: Albumin, Serum 2.1 g/dL (3.2-5.0); BUN 73 mg/dL (7-18); BUN/Creat Ratio 26.3 RATIO (10-20); Calcium,Total 7.5 mg/dL (8.5-10.1); Chloride 115 mmol/L (98-107); Creatinine, Serum 2.78 mg/dL (0.70-1.30); EST Glomerular Filtration Rate 24 mL/min (>60); Est Glom Filt Rate - Afr Amer 29 mL/min (>60); Estimated Creatinine Clearance 24.44 ml/min; Glucose 119 mg/dL (74-106); Potassium 3.5 mmol/L (3.5-5.1); Sodium Level 146 mmol/L (136-145)
[2023-04-11 05:13] LABS: Differential Comment SCANNED; Platelet Estimate MOD DEC (ADEQ)
[2023-04-11] MEDS: Hydrocortisone Sod Succinate 100 MG/2 ML Vial 50 MG IV (05:24)
[2023-04-11] MEDS: Glycerin/Hypromellose/PEG400 15 ml Bottle 1 DRP EACH EYE ×3 (05:24→19:53)
--- NOTE | 2023-04-11 06:54 | PN.HOSP_ITS ---
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 Anxious to go back to work. Objective Data Objective Data Vital Signs: Vital Signs Temp Pulse Resp BP Pulse Ox O2 Del Method O2 Flow Rate 36.9 C 71 17 123/78 H 96 Bi-pap 3 04/11/23 03:00 04/11/23 06:00 04/11/23 06:00 04/11/23 06:00 04/11/23 06:00 04/11/23 06:00 04/11/23 04:00 FiO2 30 04/11/23 06:00 Oxygen Flow Rate (L/min) 3 Oxygen Delivery Method Bi-pap Weight: 73.3 kg Body Mass Index (BMI) 23.1 Intake & Output: Intake and Output for Last 24 Hours 04/09/23 04/10/23 04/11/23 23:59 23:59 23:59 Intake Total 2219.26 / 2219.26 980 / 980 50 / 50 Output Total 920 / 920 3240 / 3240 500 / 500 Balance 1299.26 / 1299.26 -2260 / -2260 -450 / -450 Lab / Micro Data 04/11/23 03:08 04/11/23 03:08 Labs: Laboratory Results - last 24 hr 04/10/23 03:10: Diff Path Review Reviewed 04/11/23 03:08: WBC 44.3 H*, RBC 2.98 L, Hgb 9.3 L, Hct 27.7 L, MCV 93.0, MCH 31.2, MCHC 33.6, RDW Std Deviation 49.9 H, RDW Coeff of Gaby 14.6, Plt Count 65 L , MPV 10.2, Immature Gran % (Auto) 1.800 H, Neut % (Auto) 93.0 H, Lymph % (Auto) 1.4 L, [place] % (Auto) 3.8, Eos % (Auto) 0.0, Baso % (Auto) 0.0, Absolute Neuts (auto) 41.2 H, Absolute Lymphs (auto) 0.61 L, Nucleated RBC % 0, Differential Comment SCANNED, Diff Path Review May foll, Platelet Estimate MOD DEC, Sodium 146 H, Potassium 3.5, Chloride 115 H, Carbon Dioxide 20.0 L, BUN 73 H, Creatinine 2.78 H, Estim Creat Clear Calc 24.44, Est GFR (MDRD) Af Amer 29 L, Est GFR (MDRD) Non-Af 24 L, BUN/Creatinine Ratio 26.3 H, Glucose 119 H, Calcium 7.5 L, Phosphorus 3.0, Albumin 2.1 L Micro: Microbiology 04/08/23 18:50 Blood Culture (Wb) - Anticubital Right Blood Culture - Preliminary 04/08/23 18:58 Blood Culture (Wb) - Anticubital Left Blood Culture - Preliminary GNR lactose master control technician 04/08/23 22:36 Urine, Clean Catch Urine Culture - Preliminary GNR lactose master control technician 04/08/23 18:40 Stool Stool Occult Blood (ALFONSO) - Final Occult Blood Positive 04/08/23 18:30 Mucosa - Nose SARS-CoV-2, Influenza & RSV (PCR) - Final Physical Exam Const alert and no apparent distress Constitutional Narrative: Up in chair. Nontoxic. Appears well overall. Patient seen earlier ambulate in the hallway with therapy. Patient was using a walker and had a normal gait though slow. HEENT head/scalp atraumatic Eyes Eyes Narrative: Glasses. No icterus. Resp normal respiratory effort and no retractions Resp Narrative: Bibasilar crackles Cardio regular rate, regular rhythm, S1 normal heart sound and S2 normal heart sound GI normal to inspection, nondistended, normoactive bowel sounds and soft to palpation Extremity normal to inspection and full ROM Neuro Sensorium / Orientation: awake and alert Psych affect normal Assessment & Plan Assessment/Plan (1) Sepsis associated hypotension: (2) UTI (urinary tract infection): QUALIFIERS: Urinary tract infection type: acute pyelonephritis Qualified Code(s): N10 - Acute pyelonephritis PLAN: Plan septic shock. * 2/2 to pyelonephritis and bacteremia. * RIJ TLC placed 04/09 * was on norepi gtt and vasopressin, since weaned off * follow up cultures * Continue hydrocortisone. acute hypoxic respiratory failure * POA with pulse of 79% on high flow oxygen * overall improved. * wean oxygen as able * pt received furosemide 40 IV on 04/10. Acute pyelonephritis. * 2 obstructing calculi * underwent cystoscopy w left stent placement and retrograde pyelogram 04/09 * UCx w E. coli. Antibiotics changed from pip-tazo to ceftriaxone Bacteremia * + E. coli, suspected source from pyelonephritis. * On ceftriaxone. KAROL * POA * admission creatinine 3.33, up to 3.61, down to 2.78. Baseline around 1.6 * continue IVF * FENA 0.54% * suspect prerenal and ischemic ATN * Nephrology following. Transaminitis * developing. AST and ALT up to 402 and 500, respectively. * suspect due to septic shock. * monitor Leukocytosis * ongoing, secondary to underlying sepsis, infection and steroids (which have been discontinued 04/11) * monitor Thrombocytopenia * trending down during course of admission. Suspect due to underlying sepsis and DIC. * monitor * doubt TTP, HIT DIC, suspected * noted coagulopathy with elevated aPTT, PT, Fibrinogen, D-dimer. Thrombocytopenia, worsening anemia. * consider idania-smear, LDH, haptoglobin if concern for hemolysis Chronic conditions: * CAD status post stents: continue aspirin, Plavix, and atorvastatin. Patient not on beta-john, reason unclear follow-up with cardiology as an outpatient.3. * hypertension: antihypertensive held given shock * Dyslipidemia: Patient on atorvastatin continued. * History of prostate cancer: Status post prostatectomy, in remission. DVT prophylaxis, high risk: SCDs . Discussed with the patient's daughters. 1 daughter was in the room and the other daughter was contacted on the phone. Explained in depth the patient's course and eventual plan. Also discussing with the patient about returning to work. Told him I could not say that he could return to work next week but I advised against its given the severity of his illness and the fact that he is still in the hospital should give more time before he can get back to his normal routine. Greater than 50 minutes of which greater than 50% time was counseling the patient and his daughters at bedside about the issues above. Charges/Coding Visit Charges Inpatient E&M: 31703 Subs Hosp L3
--- NOTE | 2023-04-11 06:55 | PCM.PN.INT ---
Assessment & Plan Assessment/Plan (1) Septic shock due to urinary tract infection: (2) Calculus of left kidney: (3) Stage III chronic kidney disease: QUALIFIERS: Chronic kidney disease stage 3 subtype: stage 3a (GFR 45-59) Qualified Code(s): N18.31 - Chronic kidney disease, stage 3a (4) Sarcoidosis of lung: PLAN: Plan RECOMMENDATIONS: 1. Possible dose with Lasix this afternoon if poor urine output 2. Discontinue stress dose steroids 3. Continue Zosyn pending sensitivities 4. Increase activity as tolerated 5. BiPAP rescue as needed. Wean oxygen as tolerated 6. Okay to leave the intensive care unit from my perspective IMPRESSIONS: 1. Septic shock secondary to probable gram-negative UTI with obstructing stones Patient has had intervention overnight with ureteral stent and subsequent hypotension. This pattern is highly suggestive of a gram-negative infection and blood cultures are already positive. Patient is on Zosyn at this time. Will narrow antibiotic spectrum once further information is available. Patient should not receive additional fluids. Will discontinue stress dose steroids. 2. Acute kidney injury on CKD stage IIIa Slightly improved. Clinical suspicion for pre and post prerenal etiology. Patient did have significant hypotension on presentation, but also had obstructing stones. Both of these are resolved at this time. Patient did receive Lasix yesterday with good response. Clinical suspicion is patient will enter the polyuric phase of ATN today. If patient's urine output remains marginal, Lasix could be given. 3. Acute hypoxic respiratory failure in the setting of sarcoidosis Patient does have a history of sarcoidosis last treated in March of last year. Patient does not appear to have a baseline oxygen requirement, but is currently on BiPAP as needed. Clinical suspicion for an element of congestive heart failure secondary to fluid resuscitation associated with problem #1. Will hold off on additional IV fluids at this time. Patient may be a candidate for Lasix if not having significant urine output spontaneously 4. Advanced age/hyperlipidemia/history of prostate cancer/jaundice Complicates care, management, recovery and prognosis. Discussion with patient and daughter confirmed patient is a full CODE STATUS. Jaundice does appear to be improved. Patient does have nodules on the lung, but this may be secondary to sarcoid. This can be followed up as an outpatient. Subjective Subjective Patient did well overnight. Patient responded well to Lasix yesterday afternoon. Patient is still requiring some supplemental oxygen, which is concerning to the patient. Patient is not reporting any abdominal pain, nausea or vomiting. Patient did tolerate p.o. diet yesterday. Objective Data Objective Data Vital Signs: Vital Signs Temp Pulse Resp BP Pulse Ox O2 Del Method O2 Flow Rate 36.9 C 71 17 123/78 H 96 Bi-pap 3 04/11/23 03:00 04/11/23 06:00 04/11/23 06:00 04/11/23 06:00 04/11/23 06:00 04/11/23 06:00 04/11/23 04:00 FiO2 30 04/11/23 06:00 Oxygen Flow Rate (L/min) 3 Oxygen Delivery Method Bi-pap Weight: 73.3 kg Body Mass Index (BMI) 23.1 Intake & Output: Intake and Output for Last 24 Hours 04/09/23 04/10/23 04/11/23 23:59 23:59 23:59 Intake Total 2219.26 / 2219.26 980 / 980 50 / 50 Output Total 920 / 920 3240 / 3240 500 / 500 Balance 1299.26 / 1299.26 -2260 / -2260 -450 / -450 Lab / Micro Data Attestation: I reviewed the patient's lab results. 04/11/23 03:08 04/11/23 03:08 Labs: Laboratory Results - last 24 hr 04/10/23 03:10: Diff Path Review Reviewed 04/11/23 03:08: WBC 44.3 H*, RBC 2.98 L, Hgb 9.3 L, Hct 27.7 L, MCV 93.0, MCH 31.2, MCHC 33.6, RDW Std Deviation 49.9 H, RDW Coeff of Gaby 14.6, Plt Count 65 L, MPV 10.2, Immature Gran % (Auto) 1.800 H, Neut % (Auto) 93.0 H, Lymph % (Auto) 1.4 L, [place] % (Auto) 3.8, Eos % (Auto) 0.0, Baso % (Auto) 0.0, Absolute Neuts (auto) 41.2 H, Absolute Lymphs (auto) 0.61 L, Nucleated RBC % 0, Differential Comment SCANNED, Diff Path Review May foll, Platelet Estimate MOD DEC, Sodium 146 H, Potassium 3.5, Chloride 115 H, Carbon Dioxide 20.0 L, BUN 73 H, Creatinine 2.78 H, Estim Creat Clear Calc 24.44, Est GFR (MDRD) Af Amer 29 L, Est GFR (MDRD) Non-Af 24 L, BUN/Creatinine Ratio 26.3 H, Glucose 119 H, Calcium 7.5 L, Phosphorus 3.0, Albumin 2.1 L Micro: Microbiology 04/08/23 18:50 Blood Culture (Wb) - Anticubital Right Blood Culture - Preliminary 04/08/23 18:58 Blood Culture (Wb) - Anticubital Left Blood Culture - Preliminary GNR lactose taping foreman 04/08/23 22:36 Urine, Clean Catch Urine Culture - Preliminary GNR lactose taping foreman 04/08/23 18:40 Stool Stool Occult Blood (ALFONSO) - Final Occult Blood Positive 04/08/23 18:30 Mucosa - Nose SARS-CoV-2, Influenza & RSV (PCR) - Final Physical Exam Const alert and no apparent distress Constitutional Narrative: Good BiPAP synchrony. Jaundice resolved HEENT normocephalic and head/scalp atraumatic Eyes PERRL, EOMs intact bilaterally and conjunctivae normal Eyes Narrative: Icterus resolved Neck full ROM and no lymphadenopathy Neck Narrative: Right IJ is clean, dry and intact Chest inspection of chest normal Resp normal respiratory effort Auscultation: clear to auscultation bilaterally; Negative for rales, rhonchi or wheezes Cardio regular rate, regular rhythm, S1 normal heart sound, S2 normal heart sound, no murmurs, no rub and no gallops GI normal to inspection, nondistended, normoactive bowel sounds Extremity no clubbing, cyanosis or edema Extremity Narrative: Resolution of pain on palpation of the calves Skin no rashes or lesions noted Neuro oriented x3, CN's II-XII intact bilaterally and moves all extremities Psych cooperative Mood & Affect: flat affect Charges/Coding Visit Charges Inpatient E&M: 12073 Subs Hosp L3
[2023-04-11] MEDS: Aspirin 81 MG TAB.CHEW PO (08:23)
[2023-04-11] MEDS: Clopidogrel Bisulfate 75 MG Tablet PO (08:23)
[2023-04-11] MEDS: Ascorbic Acid 500 MG Tablet PO (08:23)
[2023-04-11] MEDS: Ceftriaxone 1 GM/50 ML BAG IV (09:37)
[2023-04-11 12:53] LABS: Pathologist Review Reviewed
--- NOTE | 2023-04-11 12:54 | PN.RENAL_ITS ---
Subjective Subjective Sitting up in bed eating lunch. Daughter at bedside. No overnight events. Reports breathing has improved today. Objective Data Objective Data Vital Signs: Vital Signs Temp Pulse Resp BP Pulse Ox O2 Del Method O2 Flow Rate 98.1 F 63 16 112/69 91 Nasal Cannula 2 04/11/23 12:00 04/11/23 12:00 04/11/23 12:00 04/11/23 12:00 04/11/23 12:00 04/11/23 12:00 04/11/23 12:00 FiO2 30 04/11/23 06:00 Oxygen Flow Rate (L/min) 2 Oxygen Delivery Method Nasal Cannula Weight: 73.3 kg Body Mass Index (BMI) 23.1 Intake & Output: Intake and Output for Last 24 Hours 04/09/23 04/10/23 04/11/23 23:59 23:59 23:59 Intake Total 2219.26 / 2219.26 980 / 980 400 / 400 Output Total 920 / 920 3240 / 3240 950 / 950 Balance 1299.26 / 1299.26 -2260 / -2260 -550 / -550 Lab / Micro Data 04/11/23 03:08 04/11/23 03:08 Labs: Laboratory Results - last 24 hr 04/10/23 03:10: Diff Path Review Reviewed 04/11/23 03:08: WBC 44.3 H*, RBC 2.98 L, Hgb 9.3 L, Hct 27.7 L, MCV 93.0, MCH 31.2, MCHC 33.6, RDW Std Deviation 49.9 H, RDW Coeff of Gaby 14.6, Plt Count 65 L , MPV 10.2, Immature Gran % (Auto) 1.800 H, Neut % (Auto) 93.0 H, Lymph % (Auto) 1.4 L, [place] % (Auto) 3.8, Eos % (Auto) 0.0, Baso % (Auto) 0.0, Absolute Neuts (auto) 41.2 H, Absolute Lymphs (auto) 0.61 L, Nucleated RBC % 0, Differential Comment SCANNED, Diff Path Review Reviewed, Platelet Estimate MOD DEC, Sodium 146 H, Potassium 3.5, Chloride 115 H, Carbon Dioxide 20.0 L, BUN 73 H, Creatinine 2.78 H, Estim Creat Clear Calc 24.44, Est GFR (MDRD) Af Amer 29 L, Est GFR (MDRD) Non-Af 24 L, BUN/Creatinine Ratio 26.3 H, Glucose 119 H, Calcium 7.5 L, Phosphorus 3.0, Albumin 2.1 L Micro: Microbiology 04/08/23 22:36 Urine, Clean Catch Urine Culture - Final Escherichia coli 04/08/23 18:58 Blood Culture (Wb) - Anticubital Left Blood Culture - Final Escherichia coli 04/08/23 18:50 Blood Culture (Wb) - Anticubital Right Blood Culture - Preliminary 04/08/23 18:40 Stool Stool Occult Blood (ALFONSO) - Final Occult Blood Positive 04/08/23 18:30 Mucosa - Nose SARS-CoV-2, Influenza & RSV (PCR) - Final Radiography Diagnostic Testing: Radiology Impression Venous Doppler Study 04/10/23 01:05 Interpretation Summary Deep veins of the bilateral lower extremities are patent and compressible segmentally. There is no evidence of bilateral lower extremity deep vein thrombosis. The bilateral great saphenous veins appear patent and compressible segmentally. Ordering Physician: Jeremy Melo Performed By: Evan Tomlin, RVT Physical Exam Narrative Alert awake oriented x 3 no obvious distress s1s2 no murmurs lungs clear anteriorly, diminished breath sounds posterior bases. On O2 2 L nasal cannula abdomen soft, nontender no edema moya + Assessment & Plan Assessment/Plan (1) Stage III chronic kidney disease: QUALIFIERS: Chronic kidney disease stage 3 subtype: stage 3a (GFR 45-59) Qualified Code(s): N18.31 - Chronic kidney disease, stage 3a (2) KAROL (acute kidney injury): PLAN: - CKD stage IIIa, baseline creatinine around 1.5. Patient was admitted with severe septic shock. KAROL likely ATN in the setting of sepsis, hypotension. CT abdomen with left-sided hydronephrosis, he is s/p stenting 04/09. Clinically improving. Off Levophed drip for over 24 hours. SCr 3.61mg/dL 04/09--> today Scr 2.78. 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 Patient has good urine output, had about 3 L urine output yesterday. Patient did have 1 dose of Lasix yesterday. Will hold off on Lasix for today and evaluate diuretic tomorrow - Patient has a history of hypophosphatemia in past and was on phos supplements. Today's phosphorus normal at 3.0. He has not had any phosphorus supplements in last 24 hours. Will check phosphorus again tomorrow. - Lactic acidosis. S/p IV fluid resuscitation. Off pressors -Septic shock secondary to ecoli UTI, with obstructing stones; s/p ureteral stent placement. Patient is on IV antibiotics, was on Zosyn. Now on ceftriaxone. No further intervention per urology until sepsis resolved. - acute hypoxic respiratory failure; Required bipap overnight, received dose lasix yesterday, now on O2 nasal canula.
--- NOTE | 2023-04-11 20:12 | CPS ---
Pt refused PAP therapy for the night.
[2023-04-11] MEDS: Famotidine 20 MG Tablet PO (20:57)
[2023-04-12] VITALS (9 sets, daily range): BP systolic 101–138; BP diastolic 52–68; PULSE 63–73; RESP 15–18; TEMP 36.5–37.5; O2SAT 86–95; BMI 24.7
[2023-04-12 07:12] LABS: Absolute Lymphocyte Count 1.08 X10^3/uL (0.83-4.51); Absolute Neutrophil Count 33.9 X10^3/uL (2.0-7.7); Basophil# 0.15 X10^3/uL; Basophil% 0.4 % (0-1); Eosinophil# 0.05 X10^3/uL; Eosinophils% 0.1 % (0-5); Hematocrit 26.9 % (40-54); Hemoglobin 9.4 g/dL (13.0-16.5); Lymphocyte # 1.08 X10^3/ul (0.83-4.51); Lymphocyte % 2.8 % (19-41); Mean Corp Hgb Conc 34.9 g/dL (32-36); Mean Corpuscular Hgb 31.5 pg (27.0-32.0); Mean Corpuscular Volume 90.3 fL (80-94); Mean Platelet Vol. 10.8 fl (6.2-12.0); Monocyte% 5.4 % (0-10); NRBC Flagged by Analyzer 0.1 % (0-5); Neutrophil # 33.85 X10^3/uL (2.7-7.7); Neutrophil % 87.4 % (47-70); POSITIVE COUNT YES; POSITIVE DIFFERENTIAL YES; Platelet Count 59 K/mm3 (150-450); RBC Distribution Width CV 14.2 % (11.6-14.6); RBC Distribution Width SD 47.7 fl (35.1-43.9); Red Blood Count 2.98 M/mm3 (4.6-6.2); White Blood Count 38.8 K/mm3 (4.4-11.0)
[2023-04-12 07:13] LABS: Differential Indicated SCAN CRITERIA MET
--- NOTE | 2023-04-12 07:42 | PCM.CONS.B ---
Consult Date of Consult: 04/12/23 Reason for Consult Patient is now transferred out of the ICU after septic shock from infected kidney stone status post stent placement he is doing better creatinine is improving still with a Gibbs catheter in place once his diuresis is done I think we can remove the catheter by think for now keep it in until he is fully diuresis probably good. I have my office set him up for outpatient surgery to laser the stones but he will to recover fully I see in the office for preop. I will continue to follow peripherally as he gets better
[2023-04-12 07:50] LABS: ALB/GLOB Ratio 0.5 RATIO (0.9-2.4); AST(SGOT) 100 U/L (15-37); Alanine Aminotransfer ALT/SGPT 278 U/L (16-61); Albumin, Serum 1.9 g/dL (3.2-5.0); Alkaline Phosphatase 207 U/L (45-117); Anion Gap 9 (5-15); BUN 75 mg/dL (7-18); BUN/Creat Ratio 36.1 RATIO (10-20); Calcium,Total 8.1 mg/dL (8.5-10.1); Chloride 118 mmol/L (98-107); Creatinine, Serum 2.08 mg/dL (0.70-1.30); EST Glomerular Filtration Rate 33 mL/min (>60); Est Glom Filt Rate - Afr Amer 40 mL/min (>60); Estimated Creatinine Clearance 32.66 ml/min; Globulin 3.7 g/dL (2.2-4.2); Glucose 155 mg/dL (74-106); Phosphorus 1.9 mg/dL (2.5-4.9); Potassium 3.1 mmol/L (3.5-5.1); Protein, Total 5.6 g/dL (6.4-8.2); Sodium Level 147 mmol/L (136-145)
[2023-04-12] MEDS: Ascorbic Acid 500 MG Tablet PO (08:55)
[2023-04-12] MEDS: Ceftriaxone 1 GM/50 ML BAG IV (08:55)
[2023-04-12] MEDS: Furosemide 40 MG/4 ML Vial IV (08:56)
[2023-04-12] MEDS: 0.9% Saline Lock 10 ML Syringe IV ×2 (08:57→17:21)
--- NOTE | 2023-04-12 09:14 | PN.HOSP_ITS ---
Reason for Visit Reason for Visit: Diagnoses Sepsis, unspecified organism (04/08/23) Sarcoidosis of lung (04/08/23) Hypotension, unspecified (04/08/23) Acute pyelonephritis (04/08/23) Acute kidney failure, unspecified (04/08/23) Chronic kidney disease, stage 3a (04/08/23) Calculus of kidney (04/08/23) Urinary tract infection, site not specified (04/08/23) Severe sepsis with septic shock (04/08/23) Objective Data Objective Data Vital Signs: Vital Signs Temp Pulse Resp BP Pulse Ox O2 Del Method O2 Flow Rate 36.5 C L 65 17 112/61 94 Nasal Cannula 3 04/12/23 08:40 04/12/23 08:40 04/12/23 08:40 04/12/23 08:40 04/12/23 08:40 04/12/23 08:44 04/12/23 08:44 FiO2 30 04/11/23 06:00 Oxygen Flow Rate (L/min) 3 Oxygen Delivery Method Nasal Cannula Weight: 78.1 kg Body Mass Index (BMI) 24.7 Intake & Output: Intake and Output for Last 24 Hours 04/10/23 04/11/23 04/12/23 23:59 23:59 23:59 Intake Total 980 / 980 400 / 400 Output Total 3240 / 3240 1675 / 1675 750 / 750 Balance -2260 / -2260 -1275 / -1275 -750 / -750 Lab / Micro Data 04/12/23 06:50 04/12/23 06:50 Labs: Laboratory Results - last 24 hr 04/11/23 03:08: Diff Path Review Reviewed 04/12/23 06:50: WBC 38.8 H*, RBC 2.98 L, Hgb 9.4 L, Hct 26.9 L, MCV 90.3, MCH 31.5, MCHC 34.9, RDW Std Deviation 47.7 H, RDW Coeff of Gaby 14.2, Plt Count 59 L , MPV 10.8, Immature Gran % (Auto) 3.900 H, Neut % (Auto) 87.4 H, Lymph % (Auto) 2.8 L, [place] % (Auto) 5.4, Eos % (Auto) 0.1, Baso % (Auto) 0.4, Absolute Neuts (auto) 33.9 H, Absolute Lymphs (auto) 1.08, Nucleated RBC % 0.1, Diff Path Revie w June foll, Sodium 147 H, Potassium 3.1 L, Chloride 118 H, Carbon Dioxide 20.0 L , Anion Gap 9, BUN 75 H, Creatinine 2.08 H, Estim Creat Clear Calc 32.66, Est GFR (MDRD) Af Amer 40 L, Est GFR (MDRD) Non-Af 33 L, BUN/Creatinine Ratio 36.1 H , Glucose 155 H, Calcium 8.1 L, Phosphorus 1.9 L, Total Bilirubin 0.90, AST 100 H, ALT 278 H, Alkaline Phosphatase 207 H, Total Protein 5.6 L, Albumin 1.9 L, Globulin 3.7, Albumin/Globulin Ratio 0.5 L Micro: Microbiology 04/08/23 22:36 Urine, Clean Catch Urine Culture - Final Escherichia coli 04/08/23 18:58 Blood Culture (Wb) - Anticubital Left Blood Culture - Final Escherichia coli 04/08/23 18:50 Blood Culture (Wb) - Anticubital Right Blood Culture - Preliminary 04/08/23 18:40 Stool Stool Occult Blood (ALFONSO) - Final Occult Blood Positive 04/08/23 18:30 Mucosa - Nose SARS-CoV-2, Influenza & RSV (PCR) - Final Assessment & Plan Assessment/Plan (1) Sepsis associated hypotension: (2) UTI (urinary tract infection): QUALIFIERS: Urinary tract infection type: acute pyelonephritis Qualified Code(s): N10 - Acute pyelonephritis PLAN: Plan septic shock. * 2/2 to pyelonephritis and bacteremia. * RIJ TLC placed 04/09 * was on norepi gtt and vasopressin, since weaned off. Was also on hyd rocortisone, which has also been weaned off. * Blood and urine Cx both showing E. coli. * on CTX. Continue abx through the . acute hypoxic respiratory failure * POA with pulse of 79% on high flow oxygen * overall improved. * wean oxygen as able * pt received furosemide 40 IV on 04/10 and 04/12. Acute pyelonephritis. * 2/2 obstructing calculi * underwent cystoscopy w left stent placement and retrograde pyelogram 04/09 * UCx w E. coli. Antibiotics changed from pip-tazo to ceftriaxone Bacteremia * + E. coli, suspected source from pyelonephritis. * On ceftriaxone. KAROL * POA * admission creatinine 3.33, up to 3.61, down to 2. Baseline around 1.6 * FENA 0.54% * suspect prerenal and ischemic ATN * Nephrology following. Transaminitis * Improving * AST and ALT up to 402 and 500, respectively. * suspect due to septic shock. * monitor Leukocytosis * slightly improved today. ongoing, secondary to underlying sepsis, infection and steroids (which have been discontinued 04/11) * monitor Thrombocytopenia * ongoing * trending down during course of admission. Suspect due to underlying sepsis and DIC. * monitor * doubt TTP, HIT DIC, suspected * clinically improving. * noted coagulopathy with elevated aPTT, PT, Fibrinogen, D-dimer. Thrombocytopenia, worsening anemia. * consider idania-smear, LDH, haptoglobin if concern for hemolysis Chronic conditions: * CAD status post stents: continue aspirin, Plavix, and atorvastatin. Patient not on beta-john, reason unclear follow-up with cardiology as an outpatien t.3. * hypertension: antihypertensive held given shock * Dyslipidemia: Patient on atorvastatin continued. * History of prostate cancer: Status post prostatectomy, in remission. DVT prophylaxis, high risk: SCDs 04/11: Discussed with the patient's daughters. 1 daughter was in the room and the other daughter was contacted on the phone. Explained in depth the patient's course and eventual plan. Also discussing with the patient about returning to work. Told him I could not say that he could return to work next week but I advised against its given the severity of his illness and the fact that he is still in the hospital should give more time before he can get back to his normal routine.
--- NOTE | 2023-04-12 09:14 | PCM.PN.HOSP ---
Reason for Visit Reason for Visit: Diagnoses Sepsis, unspecified organism (04/08/23) Sarcoidosis of lung (04/08/23) Hypotension, unspecified (04/08/23) Acute pyelonephritis (04/08/23) Acute kidney failure, unspecified (04/08/23) Chronic kidney disease, stage 3a (04/08/23) Calculus of kidney (04/08/23) Urinary tract infection, site not specified (04/08/23) Severe sepsis with septic shock (04/08/23) Subjective Subjective Tired today. Having some chills. Did have some hematuria last night but that is since resolved. Objective Data Objective Data Vital Signs: Vital Signs Temp Pulse Resp BP Pulse Ox O2 Del Method O2 Flow Rate 36.5 C L 65 17 112/61 94 Nasal Cannula 3 04/12/23 08:40 04/12/23 08:40 04/12/23 08:40 04/12/23 08:40 04/12/23 08:40 04/12/23 08:44 04/12/23 08:44 FiO2 30 04/11/23 06:00 Oxygen Flow Rate (L/min) 3 Oxygen Delivery Method Nasal Cannula Weight: 78.1 kg Body Mass Index (BMI) 24.7 Intake & Output: Intake and Output for Last 24 Hours 04/10/23 04/11/23 04/12/23 23:59 23:59 23:59 Intake Total 980 / 980 400 / 400 Output Total 3240 / 3240 1675 / 1675 750 / 750 Balance -2260 / -2260 -1275 / -1275 -750 / -750 Lab / Micro Data 04/12/23 06:50 04/12/23 06:50 Labs: Laboratory Results - last 24 hr 04/11/23 03:08: Diff Path Review Reviewed 04/12/23 06:50: WBC 38.8 H*, RBC 2.98 L, Hgb 9.4 L, Hct 26.9 L, MCV 90.3, MCH 31.5, MCHC 34.9, RDW Std Deviation 47.7 H, RDW Coeff of Gaby 14.2, Plt Count 59 L, MPV 10.8, Immature Gran % (Auto) 3.900 H, Neut % (Auto) 87.4 H, Lymph % (Auto) 2.8 L, [place] % (Auto) 5.4, Eos % (Auto) 0.1, Baso % (Auto) 0.4, Absolute Neuts (auto) 33.9 H, Absolute Lymphs (auto) 1.08, Nucleated RBC % 0.1, Diff Path Review June, Sodium 147 H, Potassium 3.1 L, Chloride 118 H, Carbon Dioxide 20.0 L, Anion Gap 9, BUN 75 H, Creatinine 2.08 H, Estim Creat Clear Calc 32.66, Est GFR (MDRD) Af Amer 40 L, Est GFR (MDRD) Non-Af 33 L, BUN/Creatinine Ratio 36.1 H, Glucose 155 H, Calcium 8.1 L, Phosphorus 1.9 L, Total Bilirubin 0.90, AST 100 H, ALT 278 H, Alkaline Phosphatase 207 H, Total Protein 5.6 L, Albumin 1.9 L, Globulin 3.7, Albumin/Globulin Ratio 0.5 L Micro: Microbiology 04/08/23 22:36 Urine, Clean Catch Urine Culture - Final Escherichia coli 04/08/23 18:58 Blood Culture (Wb) - Anticubital Left Blood Culture - Final Escherichia coli 04/08/23 18:50 Blood Culture (Wb) - Anticubital Right Blood Culture - Preliminary 04/08/23 18:40 Stool Stool Occult Blood (ALFONSO) - Final Occult Blood Positive 04/08/23 18:30 Mucosa - Nose SARS-CoV-2, Influenza & RSV (PCR) - Final Physical Exam Const Constitutional Narrative: Saw earlier in the morning patient was sleeping but did wake briefly. Later seen up eating breakfast no acute distress and afebrile. Resp normal respiratory effort, no retractions, no use of accessory muscles and clear to auscultation bilaterally Cardio regular rate, regular rhythm, S1 normal heart sound and S2 normal heart sound GI normal to inspection, nondistended, normoactive bowel sounds, soft to palpation, non-tender and non-distended Extremity normal to inspection and full ROM Neuro Sensorium / Orientation: awake and alert Assessment & Plan Assessment/Plan (1) Sepsis associated hypotension: (2) UTI (urinary tract infection): QUALIFIERS: Urinary tract infection type: acute pyelonephritis Qualified Code(s): N10 - Acute pyelonephritis PLAN: Plan septic shock. 03/30 to pyelonephritis and bacteremia. RIJ TLC placed 04/09 was on norepi gtt and vasopressin, since weaned off. Was also on hydrocortisone, which has also been weaned off. Blood and urine Cx both showing E. coli. on CTX. Continue abx through the . acute hypoxic respiratory failure Improving POA with pulse of 79% on high flow oxygen overall improved. wean oxygen as able pt received furosemide 40 IV on 04/10 and 04/12. Acute pyelonephritis. 03/30 obstructing calculi underwent cystoscopy w left stent placement and retrograde pyelogram 04/09 UCx w E. coli. Antibiotics changed from pip-tazo to ceftriaxone Bacteremia + E. coli, suspected source from pyelonephritis. On ceftriaxone. KAROL POA admission creatinine 3.33, up to 3.61, down to 2. Baseline around 1.6 FENA 0.54% suspect prerenal and ischemic ATN Nephrology following. Transaminitis Improving AST and ALT up to 402 and 500, respectively. suspect due to septic shock. monitor Leukocytosis slightly improved today. ongoing, secondary to underlying sepsis, infection and steroids (which have been discontinued 04/11) monitor Thrombocytopenia ongoing trending down during course of admission. Suspect due to underlying sepsis and DIC. monitor doubt TTP, HIT DIC, suspected clinically improving. noted coagulopathy with elevated aPTT, PT, Fibrinogen, D-dimer. Thrombocytopenia, worsening anemia. consider idania-smear, LDH, haptoglobin if concern for hemolysis Chronic conditions: CAD status post stents: continue aspirin, Plavix, and atorvastatin. Patient not on beta-john, reason unclear follow-up with cardiology as an outpatient.3. hypertension: antihypertensive held given shock Dyslipidemia: Patient on atorvastatin continued. History of prostate cancer: Status post prostatectomy, in remission. DVT prophylaxis, high risk: SCDs 04/11: Discussed with the patient's daughters. 1 daughter was in the room and the other daughter was contacted on the phone. Explained in depth the patient's course and eventual plan. Also discussing with the patient about returning to work. Told him I could not say that he could return to work next week but I advised against its given the severity of his illness and the fact that he is still in the hospital should give more time before he can get back to his normal routine. 04/12: Discussed with the patient daughters again. 1 daughter was very anxious about Tanisha including the DIC and septic shock. Reassured her that when I put those diagnoses and chest reflect what was actually going on with the patient. Overall, he is doing much better and I do anticipate him being able to be discharged. I did caution her in regards to researching these very diagnoses that many times the initial search options will be worst-case scenarios. Told her not to focus on those but to look more at the patient's overall improvement. Also reassured her about the hematuria likely combination of the ball of the catheter abutting his bladder compounded by his thrombocytopenia. Hematuria since resolved. We also did interdisciplinary rounds today and addressed with both daughters, the 1 who is a physician carpenter assistant over the phone. Greater than 55 minutes of which greater than 50% of time was counseling the patient and family at bedside about current status,. Medical diagnoses and emphasizing the overall improved clinical picture. Charges/Coding Visit Charges Inpatient E&M: 22413 Subs Hosp L3
--- NOTE | 2023-04-12 09:53 | PN.CC_ITS ---
Assessment & Plan Assessment/Plan (1) Septic shock due to urinary tract infection: (2) Calculus of left kidney: (3) Stage III chronic kidney disease: QUALIFIERS: Chronic kidney disease stage 3 subtype: stage 3a (GFR 45-59) Qualified Code(s): N18.31 - Chronic kidney disease, stage 3a (4) Sarcoidosis of lung: PLAN: Plan RECOMMENDATIONS: 1. Challenge with Lasix 2. Monitor clinically off stress dose steroids 3. Continue ceftriaxone to complete antibiotic course 4. Increase activity as tolerated 5. Walking oximetry prior to discharge. Wean oxygen as tolerated 6. Potential discharge if able to tolerate ambulation without supplemental oxygen IMPRESSIONS: 1. Septic shock secondary to pansensitive E. coli UTI with obstructing stones Patient has had intervention overnight with ureteral stent and subsequent hypotension. This pattern is highly suggestive of a gram-negative infection and blood cultures are already positive. Patient is on ceftriaxone at this time. Monitor off stress dose steroids. Will need to discuss with urology on long- term plan and need for Gibbs on discharge. 2. Acute kidney injury on CKD stage IIIa Continues to improve. Clinical suspicion for pre and post prerenal etiology. Patient did have significant hypotension on presentation, but also had obstructing stones. Both of these are resolved at this time. Patient did receive Lasix 48 hours ago with good response. Patient will be challenged with Lasix. Potassium has been supplemented. 3. Acute hypoxic respiratory failure in the setting of sarcoidosis Patient does have a history of sarcoidosis last treated in March of last year. Patient does not appear to have a baseline oxygen requirement, but is currently on BiPAP as needed. Clinical suspicion for an element of congestive heart failure secondary to fluid resuscitation associated with problem #1. Will hold off on additional IV fluids at this time. Patient will be challenged with Lasix today. Patient will need a walking oximetry prior to discharge. 4. Advanced age/hyperlipidemia/history of prostate cancer/jaundice Complicates care, management, recovery and prognosis. Discussion with patient and daughter confirmed patient is a full CODE STATUS. Jaundice does appear to be improved. Patient does have nodules on the lung, but this may be secondary to sarcoid. This can be followed up as an outpatient. Subjective Subjective Patient did well overnight. Patient is somewhat disgruntled about still requiring supplemental oxygen. Patient was working on increasing ambulation yesterday and feels his strength is improving. Patient is not reporting any chest pain, vomiting pain, nausea or vomiting. Objective Data Objective Data Vital Signs: Vital Signs Temp Pulse Resp BP Pulse Ox O2 Del Method O2 Flow Rate 36.5 C L 65 17 112/61 94 Nasal Cannula 3 04/12/23 08:40 04/12/23 08:40 04/12/23 08:40 04/12/23 08:40 04/12/23 08:40 04/12/23 08:44 04/12/23 08:44 FiO2 30 04/11/23 06:00 Oxygen Flow Rate (L/min) 3 Oxygen Delivery Method Nasal Cannula Weight: 78.1 kg Body Mass Index (BMI) 24.7 Intake & Output: Intake and Output for Last 24 Hours 04/10/23 04/11/23 04/12/23 23:59 23:59 23:59 Intake Total 980 / 980 400 / 400 Output Total 3240 / 3240 1675 / 1675 750 / 750 Balance -2260 / -2260 -1275 / -1275 -750 / -750 Lab / Micro Data Attestation: I reviewed the patient's lab results. 04/12/23 06:50 04/12/23 06:50 Labs: Laboratory Results - last 24 hr 04/11/23 03:08: Diff Path Review Reviewed 04/12/23 06:50: WBC 38.8 H*, RBC 2.98 L, Hgb 9.4 L, Hct 26.9 L, MCV 90.3, MCH 31.5, MCHC 34.9, RDW Std Deviation 47.7 H, RDW Coeff of Gaby 14.2, Plt Count 59 L , MPV 10.8, Immature Gran % (Auto) 3.900 H, Neut % (Auto) 87.4 H, Lymph % (Auto) 2.8 L, [place] % (Auto) 5.4, Eos % (Auto) 0.1, Baso % (Auto) 0.4, Absolute Neuts (auto) 33.9 H, Absolute Lymphs (auto) 1.08, Nucleated RBC % 0.1, Diff Path Review May , Sodium 147 H, Potassium 3.1 L, Chloride 118 H, Carbon Dioxide 20.0 L, Anion Gap 9, BUN 75 H, Creatinine 2.08 H, Estim Creat Clear Calc 32.66, Est GFR (MDRD) Af Amer 40 L, Est GFR (MDRD) Non-Af 33 L, BUN/Creatinine Ratio 36.1 H, Glucose 155 H, Calcium 8.1 L, Phosphorus 1.9 L, Total Bilirubin 0.90, AST 100 H, ALT 278 H, Alkaline Phosphatase 207 H, Total Protein 5.6 L, Albumin 1.9 L, Globulin 3.7, Albumin/Globulin Ratio 0.5 L Micro: Microbiology 04/08/23 22:36 Urine, Clean Catch Urine Culture - Final Escherichia coli 04/08/23 18:58 Blood Culture (Wb) - Anticubital Left Blood Culture - Final Escherichia coli 04/08/23 18:50 Blood Culture (Wb) - Anticubital Right Blood Culture - Preliminary 04/08/23 18:40 Stool Stool Occult Blood (ALFONSO) - Final Occult Blood Positive 04/08/23 18:30 Mucosa - Nose SARS-CoV-2, Influenza & RSV (PCR) - Final Physical Exam Const alert and no apparent distress Constitutional Narrative: Off BiPAP. Jaundice resolved HEENT normocephalic and head/scalp atraumatic Eyes PERRL, EOMs intact bilaterally and conjunctivae normal Eyes Narrative: Icterus resolved Neck full ROM and no lymphadenopathy Neck Narrative: Right IJ is clean, dry and intact Chest inspection of chest normal Resp normal respiratory effort Auscultation: clear to auscultation bilaterally; Negative for rales, rhonchi or wheezes Cardio regular rate, regular rhythm, S1 normal heart sound, S2 normal heart sound, no murmurs, no rub and no gallops Rate: tachycardic GI normal to inspection, nondistended, normoactive bowel sounds Extremity no clubbing, cyanosis or edema Extremity Narrative: Resolution of pain on palpation of the calves Skin no rashes or lesions noted Neuro oriented x3, CN's II-XII intact bilaterally and moves all extremities Neuro Narrative: Responding more appropriately today Psych cooperative Mood & Affect: flat affect Charges/Coding Visit Charges Inpatient E&M: 12652 Subs Hosp L2
[2023-04-12] MEDS: 0.9% Normal Saline (250mL Bag) 250 ML 15 ML IV (10:45)
--- NOTE | 2023-04-12 11:04 | PN.RENAL_ITS ---
Subjective Subjective Patient is resting in bed. No overnight events. Moved out of ICU. Daughter at bedside but also spoke with other daughter via speaker phone Objective Data Objective Data Vital Signs: Vital Signs Temp Pulse Resp BP Pulse Ox O2 Del Method O2 Flow Rate 97.7 F L 65 17 112/61 94 Nasal Cannula 3 04/12/23 08:40 04/12/23 08:40 04/12/23 08:40 04/12/23 08:40 04/12/23 08:40 04/12/23 08:44 04/12/23 08:44 FiO2 30 04/11/23 06:00 Oxygen Flow Rate (L/min) 3 Oxygen Delivery Method Nasal Cannula Weight: 78.1 kg Body Mass Index (BMI) 24.7 Intake & Output: Intake and Output for Last 24 Hours 04/10/23 04/11/23 04/12/23 23:59 23:59 23:59 Intake Total 980 / 980 400 / 400 50 / 50 Output Total 3240 / 3240 1675 / 1675 1750 / 1750 Balance -2260 / -2260 -1275 / -1275 -1700 / -1700 Lab / Micro Data 04/12/23 06:50 04/12/23 06:50 Labs: Laboratory Results - last 24 hr 04/11/23 03:08: Diff Path Review Reviewed 04/12/23 06:50: WBC 38.8 H*, RBC 2.98 L, Hgb 9.4 L, Hct 26.9 L, MCV 90.3, MCH 31.5, MCHC 34.9, RDW Std Deviation 47.7 H, RDW Coeff of Gaby 14.2, Plt Count 59 L , MPV 10.8, Immature Gran % (Auto) 3.900 H, Neut % (Auto) 87.4 H, Lymph % (Auto) 2.8 L, [place] % (Auto) 5.4, Eos % (Auto) 0.1, Baso % (Auto) 0.4, Absolute Neuts (auto) 33.9 H, Absolute Lymphs (auto) 1.08, Nucleated RBC % 0.1, Diff Path Review June, Sodium 147 H, Potassium 3.1 L, Chloride 118 H, Carbon Dioxide 20.0 L, Anion Gap 9, BUN 75 H, Creatinine 2.08 H, Estim Creat Clear Calc 32.66, Est GFR (MDRD) Af Amer 40 L, Est GFR (MDRD) Non-Af 33 L, BUN/Creatinine Ratio 36.1 H, Glucose 155 H, Calcium 8.1 L, Phosphorus 1.9 L, Total Bilirubin 0.90, AST 100 H, ALT 278 H, Alkaline Phosphatase 207 H, Total Protein 5.6 L, Albumin 1.9 L, Globulin 3.7, Albumin/Globulin Ratio 0.5 L Micro: Microbiology 04/08/23 22:36 Urine, Clean Catch Urine Culture - Final Escherichia coli 04/08/23 18:58 Blood Culture (Wb) - Anticubital Left Blood Culture - Final Escherichia coli 04/08/23 18:50 Blood Culture (Wb) - Anticubital Right Blood Culture - Preliminary 04/08/23 18:40 Stool Stool Occult Blood (ALFONSO) - Final Occult Blood Positive 04/08/23 18:30 Mucosa - Nose SARS-CoV-2, Influenza & RSV (PCR) - Final Physical Exam Narrative Alert awake oriented x 3 no obvious distress s1s2 no murmurs lungs clear anteriorly, diminished breath sounds posterior bases. On O2 2 L nasal cannula abdomen soft, nontender no edema moya + with pinkish-yellow urine in bag, no clots Assessment & Plan Assessment/Plan (1) Stage III chronic kidney disease: QUALIFIERS: Chronic kidney disease stage 3 subtype: stage 3a (GFR 45-59) Qualified Code(s): N18.31 - Chronic kidney disease, stage 3a (2) KAROL (acute kidney injury): PLAN: - CKD stage IIIa, baseline creatinine around 1.5. Patient was admitted with severe septic shock. KAROL likely ATN in the setting of sepsis, hypotension. CT abdomen with left-sided hydronephrosis, he is s/p stenting 2. Clinically improving. Off Levophed drip for few days. SCr 3.61mg/dL 04/09--> today Scr 2.08. There is no acute indication for [employer]. Patient has good urine output. Received lasix 40mg IV again today. Potassium is 3.1, getting supplement today. Labs ordered for tomorrow. Reviewed potassium rich foods with patient and daughter today - Patient has a history of hypophosphatemia in past and was on phos supplements. Off supplements when admitted to hospital. Yesterday phosphorus 3.0, today phosphorus dropped to 1.9 and is getting IV K-Phos. Will check phosphorus again tomorrow. Patient may need phosphorus supplement at time of discharge - Lactic acidosis. S/p IV fluid resuscitation. Off pressors. White count peaked at 44,000 yesterday, today 38.8. -Septic shock secondary to ecoli UTI, with obstructing stones; s/p ureteral stent placement. IV antibiotics changed from Zosyn to now on ceftriaxone. No further intervention per urology until sepsis resolved. - acute hypoxic respiratory failure; Required bipap, now on O2 nasal cannula at 3 L. Received dose lasix again today. -Discussed nephrology plan with Dr. Martinez.
[2023-04-12] MEDS: Potassium Phosphate 40 MM in 0.9% Normal Saline (500mL Bag) 500 ML 62.5 MM IV (11:14)
[2023-04-12 12:59] LABS: Pathologist Review Reviewed
[2023-04-12] MEDS: Potassium Chloride Oral Tablet 20 MEQ 60 MEQ PO (14:10)
[2023-04-12] MEDS: Famotidine 20 MG Tablet PO (21:19)
[2023-04-13 03:20] VITALS: BP 124/70; PULSE 66; RESP 18; TEMP 36.7; O2SAT 93
[2023-04-13 03:43] VITALS: BMI 24.9
[2023-04-13 07:30] LABS: Absolute Lymphocyte Count 1.21 X10^3/uL (0.83-4.51); Absolute Neutrophil Count 24.5 X10^3/uL (2.0-7.7); Basophil# 0.14 X10^3/uL; Eosinophil# 0.36 X10^3/uL; Hematocrit 29.4 % (40-54); Hemoglobin 10.1 g/dL (13.0-16.5); Lymphocyte # 1.21 X10^3/ul (0.83-4.51); Mean Corp Hgb Conc 34.4 g/dL (32-36); Mean Corpuscular Hgb 31.4 pg (27.0-32.0); Mean Corpuscular Volume 91.3 fL (80-94); Mean Platelet Vol. 10.9 fl (6.2-12.0); Monocyte# 2.49 X10^3/uL; NRBC Flagged by Analyzer 0.2 % (0-5); Neutrophil # 24.49 X10^3/uL (2.7-7.7); POSITIVE COUNT YES; POSITIVE DIFFERENTIAL YES; POSITIVE MORPHOLOGY YES; Platelet Count 68 K/mm3 (150-450); RBC Distribution Width CV 14.6 % (11.6-14.6); RBC Distribution Width SD 49.1 fl (35.1-43.9); Red Blood Count 3.22 M/mm3 (4.6-6.2); White Blood Count 30.6 K/mm3 (4.4-11.0)
[2023-04-13 07:33] LABS: Differential Indicated SCAN CRITERIA MET
[2023-04-13 07:51] VITALS: O2SAT 98
[2023-04-13 08:09] LABS: Differential Comment SCANNED
--- NOTE | 2023-04-13 08:10 | PN.HOSP_ITS ---
Reason for Visit Reason for Visit: Diagnoses Sepsis, unspecified organism (04/08/23) Sarcoidosis of lung (04/08/23) Hypotension, unspecified (04/08/23) Acute pyelonephritis (04/08/23) Acute kidney failure, unspecified (04/08/23) Chronic kidney disease, stage 3a (04/08/23) Calculus of kidney (04/08/23) Urinary tract infection, site not specified (04/08/23) Severe sepsis with septic shock (04/08/23) Subjective Subjective Feeling well. Objective Data Objective Data Vital Signs: Vital Signs Temp Pulse Resp BP Pulse Ox O2 Del Method O2 Flow Rate 36.7 C 66 18 124/70 H 98 Nasal Cannula 2 04/13/23 03:20 04/13/23 03:20 04/13/23 03:20 04/13/23 03:20 04/13/23 07:51 04/13/23 04:04 04/13/23 07:51 FiO2 30 04/11/23 06:00 Oxygen Flow Rate (L/min) 2 Oxygen Delivery Method Nasal Cannula Weight: 78.7 kg Body Mass Index (BMI) 24.9 Intake & Output: Intake and Output for Last 24 Hours 04/11/23 04/12/23 04/13/23 23:59 23:59 23:59 Intake Total 400 / 400 1450.5833 / 1450.5833 Output Total 1675 / 1675 4600 / 4600 650 / 650 Balance -1275 / -1275 -3149.4167 / -3149.4167 -650 / -650 Lab / Micro Data 04/13/23 06:40 04/13/23 06:40 Labs: Laboratory Results - last 24 hr 04/12/23 06:50: Diff Path Review Reviewed 04/13/23 06:40: WBC 30.6 H*, RBC 3.22 L, Hgb 10.1 L, Hct 29.4 L, MCV 91.3, MCH 31.4, MCHC 34.4, RDW Std Deviation 49.1 H, RDW Coeff of Gaby 14.6, Plt Count 68 L , MPV 10.9, Immature Gran % (Auto) 6.100 H, Neut % (Auto) 80.0 H, Lymph % (Auto) 4.0 L, [place] % (Auto) 8.2, Eos % (Auto) 1.2, Baso % (Auto) 0.5, Absolute Neuts (auto) 24.5 H, Absolute Lymphs (auto) 1.21, Nucleated RBC % 0.2 Micro: Microbiology 04/08/23 22:36 Urine, Clean Catch Urine Culture - Final Escherichia coli 04/08/23 18:58 Blood Culture (Wb) - Anticubital Left Blood Culture - Final Escherichia coli 04/08/23 18:50 Blood Culture (Wb) - Anticubital Right Blood Culture - Preliminary 04/08/23 18:40 Stool Stool Occult Blood (ALFONSO) - Final Occult Blood Positive 04/08/23 18:30 Mucosa - Nose SARS-CoV-2, Influenza & RSV (PCR) - Final Physical Exam Narrative moya catheter with roshan colored urine. Const alert and no apparent distress HEENT head/scalp atraumatic and moist oral mucous membranes Resp normal respiratory effort and no retractions Cardio regular rate, regular rhythm, S1 normal heart sound and S2 normal heart sound GI normal to inspection, nondistended, normoactive bowel sounds, soft to palpation, non-tender and non-distended Extremity normal to inspection Assessment & Plan Assessment/Plan (1) Sepsis associated hypotension: (2) UTI (urinary tract infection): QUALIFIERS: Urinary tract infection type: acute pyelonephritis Qualified Code(s): N10 - Acute pyelonephritis PLAN: Plan septic shock. * resolved * 03/30 to pyelonephritis and bacteremia. * RIJ TLC placed 04/09 * was on norepi gtt and vasopressin, since weaned off. Was also on stress-dose hydrocortisone, which has also been weaned off. * Blood and urine Cx both showing E. coli. * on CTX. Continue abx through the . Discharge with levofloxacin. acute hypoxic respiratory failure * Improving * POA with pulse of 79% on high flow oxygen * overall improved. * wean oxygen as able * pt received furosemide 40 IV on 04/10 and 04/12. Acute pyelonephritis. * 2/ obstructing calculi * underwent cystoscopy w left stent placement and retrograde pyelogram 04/09 * UCx w E. coli. * DC moya * Follow up with as outpt. Bacteremia * + E. coli, suspected source from pyelonephritis. * On ceftriaxone. KAROL * POA * admission creatinine 3.33, up to 3.61, down to 2. Baseline around 1.6 * FENA 0.54% * suspect prerenal and ischemic ATN * Nephrology following. Transaminitis * Improving * AST and ALT up to 402 and 500, respectively. * suspect due to septic shock. * monitor Leukocytosis * improved today. * secondary to underlying sepsis, infection and steroids (which have been discontinued 04/11) Thrombocytopenia * imprved * trending down during course of admission. Suspect due to underlying sepsis and DIC. * doubt TTP, HIT DIC, suspected * clinically improving. * noted coagulopathy with elevated aPTT, PT, Fibrinogen, D-dimer. Thrombocytopenia, worsening anemia. * consider idania-smear, LDH, haptoglobin if concern for hemolysis Chronic conditions: * CAD status post stents: continue aspirin, Plavix, and atorvastatin. Patient not on beta-john, reason unclear follow-up with cardiology as an outpatient.3. * hypertension: antihypertensive held given shock * Dyslipidemia: Patient on atorvastatin continued. * History of prostate cancer: Status post prostatectomy, in remission. DVT prophylaxis, high risk: SCDs 04/11: Discussed with the patient's daughters. 1 daughter was in the room and the other daughter was contacted on the phone. Explained in depth the patient's course and eventual plan. Also discussing with the patient about returning to work. Told him I could not say that he could return to work next week but I advised against its given the severity of his illness and the fact that he is still in the hospital should give more time before he can get back to his normal routine. 04/12: Discussed with the patient daughters again. 1 daughter was very anxious about Tanisha including the DIC and septic shock. Reassured her that when I put those diagnoses and chest reflect what was actually going on with the patient. Overall, he is doing much better and I do anticipate him being able to be discharged. I did caution her in regards to researching these very diagnoses that many times the initial search options will be worst-case scenarios. Told her not to focus on those but to look more at the patient's overall improvement. Also reassured her about the hematuria likely combination of the ball of the catheter abutting his bladder compounded by his thrombocytopenia. Hematuria since resolved. We also did interdisciplinary rounds today and addressed with both daughters, the 1 who is a physician admin assistant over the phone. 04/13: DC TLC, DC moya. Ambulatory pulse ox WNL, home oxygen not needed. DC home. DW pt's dtr.
[2023-04-13 08:15] LABS: Lymphocyte 4 % (19-41); Monocyte 8 % (0-10); Neutrophil-Segmented 87 % (47-70); Other WBC Type 1 %; Total Cells Counted 100 (MANUAL DIFF)
[2023-04-13 08:17] LABS: Scan Smear per Review Criteria MANUAL DIFF
[2023-04-13 08:35] VITALS: O2SAT 94
[2023-04-13 08:41] LABS: ALB/GLOB Ratio 0.5 RATIO (0.9-2.4); AST(SGOT) 109 U/L (15-37); Alanine Aminotransfer ALT/SGPT 259 U/L (16-61); Albumin, Serum 1.9 g/dL (3.2-5.0); Alkaline Phosphatase 256 U/L (45-117); Anion Gap 6 (5-15); BUN 59 mg/dL (7-18); BUN/Creat Ratio 34.7 RATIO (10-20); Chloride 117 mmol/L (98-107); EST Glomerular Filtration Rate 42 mL/min (>60); Est Glom Filt Rate - Afr Amer 51 mL/min (>60); Estimated Creatinine Clearance 39.96 ml/min; Glucose 99 mg/dL (74-106); Potassium 3.9 mmol/L (3.5-5.1); Protein, Total 5.9 g/dL (6.4-8.2); Sodium Level 146 mmol/L (136-145)
--- NOTE | 2023-04-13 09:01 | PCM.PN.INT ---
Assessment & Plan Assessment/Plan (1) Septic shock due to urinary tract infection: (2) Calculus of left kidney: (3) Stage III chronic kidney disease: QUALIFIERS: Chronic kidney disease stage 3 subtype: stage 3a (GFR 45-59) Qualified Code(s): N18.31 - Chronic kidney disease, stage 3a (4) Sarcoidosis of lung: PLAN: Plan RECOMMENDATIONS: 1. Obtain walking oximetry on room air 2. Monitor clinically off stress dose steroids 3. Continue ceftriaxone to complete antibiotic course 4. Increase activity as tolerated 5. Potentially discharge if able to ambulate on room air 6. Consider chest x-ray if supplemental oxygen is still required IMPRESSIONS: 1. Septic shock secondary to pansensitive E. coli UTI with obstructing stones Patient has had intervention overnight with ureteral stent and subsequent hypotension. This pattern is highly suggestive of a gram-negative infection and blood cultures are already positive. Patient is on ceftriaxone at this time. Monitor off stress dose steroids. Will need to discuss with urology on long-term plan and need for Gibbs on discharge. No concerns from my perspective for recurrence of sepsis. 2. Acute kidney injury on CKD stage IIIa Continues to improve. Clinical suspicion for pre and post prerenal etiology. Patient did have significant hypotension on presentation, but also had obstructing stones. Both of these are resolved at this time. Patient did receive Lasix yesterday with good response. Potassium is appropriate at this time. 3. Acute hypoxic respiratory failure in the setting of sarcoidosis Patient does have a history of sarcoidosis last treated in March of last year. Patient does not appear to have a baseline oxygen requirement, but is currently on BiPAP as needed. Clinical suspicion for an element of congestive heart failure secondary to fluid resuscitation associated with problem #1. Will hold off on additional IV fluids at this time. Patient was challenged with Lasix yesterday. Patient will need a walking oximetry prior to discharge. Clinical suspicion for continued oxygen requirement secondary to nasal congestion. Will add nasal saline. Obtain walking oximetry on room air. If patient still requires supplemental oxygen, could consider chest x-ray for evaluation. 4. Advanced age/hyperlipidemia/history of prostate cancer/jaundice Complicates care, management, recovery and prognosis. Discussion with patient and daughter confirmed patient is a full CODE STATUS. Jaundice does appear to be improved. Patient does have nodules on the lung, but this may be secondary to sarcoid. This can be followed up as an outpatient. Subjective Subjective Patient did well overnight. Patient has reported some nasal congestion, but cough is much improved compared to previous. Patient was able to ambulate without difficulty from hypoxemia. Patient is not reporting any abdominal or flank pain. Patient tolerating a p.o. diet. Objective Data Objective Data Vital Signs: Vital Signs Temp Pulse Resp BP Pulse Ox O2 Del Method O2 Flow Rate 36.7 C 66 18 124/70 H 94 Room Air 2 04/13/23 03:20 04/13/23 03:20 04/13/23 03:20 04/13/23 03:20 04/13/23 08:35 04/13/23 08:35 04/13/23 07:51 FiO2 30 04/11/23 06:00 Oxygen Flow Rate (L/min) 2 Oxygen Delivery Method Room Air Weight: 78.7 kg Body Mass Index (BMI) 24.9 Intake & Output: Intake and Output for Last 24 Hours 04/11/23 04/12/23 04/13/23 23:59 23:59 23:59 Intake Total 400 / 400 1450.5833 / 1450.5833 Output Total 1675 / 1675 4600 / 4600 650 / 650 Balance -1275 / -1275 -3149.4167 / -3149.4167 -650 / -650 Lab / Micro Data Attestation: I reviewed the patient's lab results. 04/13/23 06:40 04/13/23 06:40 Labs: Laboratory Results - last 24 hr 04/12/23 06:50: Diff Path Review Reviewed 04/13/23 06:40: WBC 30.6 H*, RBC 3.22 L, Hgb 10.1 L, Hct 29.4 L, MCV 91.3, MCH 31.4, MCHC 34.4, RDW Std Deviation 49.1 H, RDW Coeff of Gaby 14.6, Plt Count 68 L, MPV 10.9, Immature Gran % (Auto) RESEARCH GENETICIST, Neut % (Auto) RESEARCH GENETICIST, Lymph % (Auto) RESEARCH GENETICIST, [place] % (Auto) RESEARCH GENETICIST, Eos % (Auto) RESEARCH GENETICIST, Baso % (Auto) RESEARCH GENETICIST, Absolute Neuts (auto) 24.5 H, Absolute Lymphs (auto) 1.21, Total Counted 100, Neutrophils % (Manual) 87 H, Lymphocytes % (Manual) 4 L, Monocytes % (Manual) 8, Other Cells % 1, Nucleated RBC % 0.2, Differential Comment SCANNED, Diff Path Review June, Sodium 146 H, Potassium 3.9, Chloride 117 H, Carbon Dioxide 23.0, Anion Gap 6, BUN 59 H, Creatinine 1.70 H, Estim Creat Clear Calc 39.96, Est GFR (MDRD) Af Amer 51 L, Est GFR (MDRD) Non-Af 42 L, BUN/Creatinine Ratio 34.7 H, Glucose 99, Calcium 8.0 L, Total Bilirubin 1.20 H, AST 109 H, ALT 259 H, Alkaline Phosphatase 256 H, Total Protein 5.9 L, Albumin 1.9 L, Globulin 4.0, Albumin/Globulin Ratio 0.5 L Micro: Microbiology 04/08/23 22:36 Urine, Clean Catch Urine Culture - Final Escherichia coli 04/08/23 18:58 Blood Culture (Wb) - Anticubital Left Blood Culture - Final Escherichia coli 04/08/23 18:50 Blood Culture (Wb) - Anticubital Right Blood Culture - Preliminary 04/08/23 18:40 Stool Stool Occult Blood (ALFONSO) - Final Occult Blood Positive 04/08/23 18:30 Mucosa - Nose SARS-CoV-2, Influenza & RSV (PCR) - Final Physical Exam Const alert and no apparent distress Constitutional Narrative: Off BiPAP. Jaundice resolved HEENT normocephalic and head/scalp atraumatic Eyes PERRL, EOMs intact bilaterally and conjunctivae normal Eyes Narrative: Icterus resolved Neck full ROM and no lymphadenopathy Neck Narrative: Right IJ is clean, dry and intact Chest inspection of chest normal Resp normal respiratory effort Auscultation: clear to auscultation bilaterally; Negative for rales, rhonchi or wheezes Cardio regular rate, regular rhythm, S1 normal heart sound, S2 normal heart sound, no murmurs, no rub and no gallops Rate: tachycardic GI normal to inspection, nondistended, normoactive bowel sounds Extremity no clubbing, cyanosis or edema Extremity Narrative: Resolution of pain on palpation of the calves Skin no rashes or lesions noted Neuro oriented x3, CN's II-XII intact bilaterally and moves all extremities Psych cooperative Mood & Affect: flat affect Charges/Coding Visit Charges Inpatient E&M: 28772 Subs Hosp L2
[2023-04-13 09:11] VITALS: BP 131/62; PULSE 79; RESP 16; TEMP 36.5; O2SAT 95
[2023-04-13] MEDS: Ascorbic Acid 500 MG Tablet PO (09:16)
[2023-04-13] MEDS: Ceftriaxone 1 GM/50 ML BAG IV (09:22)
[2023-04-13] MEDS: Sodium Chloride 0.65% 1 SPRAY SPRAY.BTL 2 SPRAY NASAL (10:26)
[2023-04-13] MEDS: 0.9% Saline Lock 10 ML Syringe IV (10:26)
[2023-04-13 10:45] VITALS: O2SAT 89; O2SAT 94
[2023-04-13 11:12] LABS: Phosphorus 3.1 mg/dL (2.5-4.9)
--- NOTE | 2023-04-13 15:29 | DS.PCM_ITS ---
Providers Date of Admission: 04/08/23 Primary Care Physician: Dr. Abel Cunningham MD Consultations 04/08/23 21:21 Consult: Urology Routine Consulting Provider: Rufus Lane Reason for Consult: stone EMERGENT Consult: No Notified: Yes Date Notified: 04/08/23 Time Notified: 21:21 Method of Notification: ED Physician Initiated 04/08/23 22:47 Consult: Social Service Coordinator / Pulmonary Medicine Routine Consulting Provider: Intensivists/Pulmonary Med Reason for Consult: sepsis with hypotension EMERGENT Consult: No Notified: Yes Date Notified: 04/08/23 Time Notified: 21:34 Method of Notification: ED Physician Initiated Consult: Nephrology Routine Consulting Provider: Mau Acharya Reason for Consult: KAROL on CKD, SEPSIS, Pyelonephritis EMERGENT Consult: No Notified: Yes Date Notified: 04/08/23 Time Notified: 21:37 Method of Notification: Text Consult: Urology Routine Consulting Provider: Rufus Lane Reason for Consult: Left ureteral stone EMERGENT Consult: No Notified: Yes Date Notified: 04/08/23 Time Notified: 21:34 Method of Notification: ED Physician Initiated Reason For Visit: SEPSIS WITH UTI Diagnosis Discharge Diagnosis (1) Sepsis associated hypotension: Status: Acute Code(s): A41.9 - Sepsis, unspecified organism; I95.9 - Hypotension, unspecified (2) UTI (urinary tract infection): Status: Acute Code(s): N39.0 - Urinary tract infection, site not specified Qualifiers: Urinary tract infection type: acute pyelonephritis Qualified Code(s): N10 - Acute pyelonephritis Plan septic shock. * resolved * 2/ to pyelonephritis and bacteremia. * RIJ TLC placed 04/09 * was on norepi gtt and vasopressin, since weaned off. Was also on stress-dose hydrocortisone, which has also been weaned off. * Blood and urine Cx both showing E. coli. * on CTX. Continue abx through the . Discharge with levofloxacin. acute hypoxic respiratory failure * Improving * POA with pulse of 79% on high flow oxygen * overall improved. * wean oxygen as able * pt received furosemide 40 IV on 04/10 and 04/12. Acute pyelonephritis. * 2/2 obstructing calculi * underwent cystoscopy w left stent placement and retrograde pyelogram 04/09 * UCx w E. coli. * DC moya * Follow up with as outpt. Bacteremia * + E. coli, suspected source from pyelonephritis. * On ceftriaxone. KAROL * POA * admission creatinine 3.33, up to 3.61, down to 2. Baseline around 1.6 * FENA 0.54% * suspect prerenal and ischemic ATN * Nephrology following. Transaminitis * Improving * AST and ALT up to 402 and 500, respectively. * suspect due to septic shock. * monitor Leukocytosis * improved today. * secondary to underlying sepsis, infection and steroids (which have been discontinued 04/11) Thrombocytopenia * imprved * trending down during course of admission. Suspect due to underlying sepsis and DIC. * doubt TTP, HIT DIC, suspected * clinically improving. * noted coagulopathy with elevated aPTT, PT, Fibrinogen, D-dimer. Thrombocytopenia, worsening anemia. * consider idania-smear, LDH, haptoglobin if concern for hemolysis Chronic conditions: * CAD status post stents: continue aspirin, Plavix, and atorvastatin. Patient not on beta-john, reason unclear follow-up with cardiology as an outpatient.3. * hypertension: antihypertensive held given shock * Dyslipidemia: Patient on atorvastatin continued. * History of prostate cancer: Status post prostatectomy, in remission. DVT prophylaxis, high risk: SCDs 04/11: Discussed with the patient's daughters. 1 daughter was in the room and the other daughter was contacted on the phone. Explained in depth the patient's course and eventual plan. Also discussing with the patient about returning to work. Told him I could not say that he could return to work next week but I advised against its given the severity of his illness and the fact that he is still in the hospital should give more time before he can get back to his normal routine. 04/12: Discussed with the patient daughters again. 1 daughter was very anxious about Tanisha including the DIC and septic shock. Reassured her that when I put those diagnoses and chest reflect what was actually going on with the patient. Overall, he is doing much better and I do anticipate him being able to be discharged. I did caution her in regards to researching these very diagnoses that many times the initial search options will be worst-case scenarios. Told her not to focus on those but to look more at the patient's overall improvement. Also reassured her about the hematuria likely combination of the ball of the catheter abutting his bladder compounded by his thrombocytopenia. Hematuria since resolved. We also did interdisciplinary rounds today and addressed with both daughters, the 1 who is a physician community program assistant over the phone. 04/13: DC TLC, DC moya. Ambulatory pulse ox WNL, home oxygen not needed. DC home. DW pt's dtr. Medications at Discharge Home Medications aspirin 81 mg chewable tablet 81 mg PO DAILY@0800 09/18/18 famotidine 20 mg tablet (Acid Holiday Detector Operator (famotidine)) 20 mg PO QHS gerd 04/11/19 ascorbate calcium (vitamin C) 500 mg tablet 500 mg PO DAILY 07/01/19 multivitamin-ferrous fumarate-folic acid 18 mg-400 mcg tablet (Centrum Complete) 1 tab PO QHS 07/01/19 ergocalciferol (vitamin D2) 1,250 mcg (50,000 unit) capsule (Vitamin D2) 1,250 mcg PO Q2W 10/07/19 losartan 100 mg tablet 100 mg PO DAILY htn #90 tabs 04/25/22 atorvastatin 40 mg tablet 40 mg PO .qod #45 tabs 08/17/22 clopidogrel 75 mg tablet 75 mg PO DAILY #90 tabs 08/30/22 amlodipine 2.5 mg tablet 2.5 mg PO BID #180 tabs 09/15/22 levofloxacin 750 mg tablet 750 mg PO Q48H #3 tabs 04/13/23 sodium chloride 0.65 % nasal spray aerosol (Deep Sea Nasal) 2 spray NASAL TID PRN PRN NASAL DRYNESS #0 mL 04/13/23 Hospital Course Operations None Procedures Central line placement Summary of Care Provided Minutes Spent on Discharge: 50 Weight / BMI Weight Weight: 78.7 kg Body Mass Index (BMI) 24.9 ABG / Lab / Microbiology Data 04/13/23 06:40 04/13/23 06:40 Laboratory: Laboratory Results - last 24 hr 04/13/23 06:40: WBC 30.6 H*, RBC 3.22 L, Hgb 10.1 L, Hct 29.4 L, MCV 91.3, MCH 31.4, MCHC 34.4, RDW Std Deviation 49.1 H, RDW Coeff of Gaby 14.6, Plt Count 68 L , MPV 10.9, Immature Gran % (Auto) BENDING FRAME OPERATOR, Neut % (Auto) BENDING FRAME OPERATOR, Lymph % (Auto) BENDING FRAME OPERATOR, [place] % (Auto) BENDING FRAME OPERATOR, Eos % (Auto) BENDING FRAME OPERATOR, Baso % (Auto) BENDING FRAME OPERATOR, Absolute Neuts (auto) 24.5 H, Absolute Lymphs (auto) 1.21, Total Counted 100, Neutrophils % (Manual) 87 H, Lymphocytes % (Manual) 4 L, Monocytes % (Manual) 8, Other Cells % 1, Nucleated RBC % 0.2, Differential Comment SCANNED, Diff Path Review June, Sodium 146 H , Potassium 3.9, Chloride 117 H, Carbon Dioxide 23.0, Anion Gap 6, BUN 59 H, Creatinine 1.70 H, Estim Creat Clear Calc 39.96, Est GFR (MDRD) Af Amer 51 L, Est GFR (MDRD) Non-Af 42 L, BUN/Creatinine Ratio 34.7 H, Glucose 99, Calcium 8.0 L, Phosphorus 3.1, Total Bilirubin 1.20 H, AST 109 H, ALT 259 H, Alkaline Phosphatase 256 H, Total Protein 5.9 L, Albumin 1.9 L, Globulin 4.0, Albumin/Globulin Ratio 0.5 L Microbiology: Microbiology 04/08/23 22:36 Urine, Clean Catch Urine Culture - Final Escherichia coli 04/08/23 18:58 Blood Culture (Wb) - Anticubital Left Blood Culture - Final Escherichia coli 04/08/23 18:50 Blood Culture (Wb) - Anticubital Right Blood Culture - Preli minary 04/08/23 18:40 Stool Stool Occult Blood (ALFONSO) - Final Occult Blood Positive 04/08/23 18:30 Mucosa - Nose SARS-CoV-2, Influenza & RSV (PCR) - Final D/C Instructions Discharge Diet: No restrictions Return to work on: 04/23/23 Weight Bearing Status: Weight bearing as tolerated Call your doctor if you observe: Fever of 101 or Higher, Inability to urinate and - Meaningful Use Info Meaningful Use Diagnoses (Choose all that apply): None applicable Discharge Plan Admission Admit Date/Time: 04/08/23 21:29 Primary Reason for Your Visit: septic shock. Attending Provider: Wesley Martinez Primary Care Provider: Abel Cunningham Consulting Providers: Rufus Lane; Bubba Youngblood; Wenceslao Marquez; Teo Pelaez; Stephane Padilla; Gil Disla; Sruthi Billings; Dennys Melgoza; Lori Gomes; Maynor Reaves; Patricio Amador; Roger Feng; Oscar Calix; Carlos Burgos; Mau Acharya Discharge Orders/Prescriptions Prescriptions: New Deep Sea Nasal 0.65 % Aerosol,[place] 2 spray NASAL TID PRN PRN (Reason: NASAL DRYNESS) Qty: 0 0RF levofloxacin 750 mg tablet 750 mg PO Q48H Qty: 3 0RF Continued famotidine [Acid Holiday Detector Operator (famotidine)] 20 mg tablet 20 mg PO QHS ergocalciferol (vitamin D2) [Vitamin D2] 1,250 mcg (50,000 unit) capsule 1,250 mcg PO Q2W Patient Comments: states every other month ascorbate calcium (vitamin C) 500 mg tablet 500 mg PO DAILY Centrum Complete 18-400 mg-mcg tablet 1 tab PO QHS atorvastatin 40 mg tablet 40 mg PO .qod Qty: 45 3RF amlodipine 2.5 mg tablet 2.5 mg PO BID Qty: 180 3RF Held aspirin 81 MG tablet,chewable 81 mg PO DAILY@0800 Hold Instructions: Until you see your primary care provider and labs show that your platelets are improved Patient Comments: states dr woods did not want held losartan 100 mg tablet 100 mg PO DAILY Qty: 90 4RF Hold Instructions: until you see your primary care physician and have labs that show your kidney function improving. clopidogrel 75 mg tablet 75 mg PO DAILY Qty: 90 4RF Hold Instructions: Hold until you follow-up your primary care doctor and have laboratory work shows that your platelets and hemoglobin are improving. Patient Comments: stopped per instructions for surgery Referrals / Follow Up: Rufus Lane MD [Med Staff - Active Staff] - Within 1 Month Abel Cunningham MD [Primary Care Provider] - Within 2 Weeks Disposition Disposition (needs filled in before D/C Order can be placed): Home, Self Care Charges/Coding Visit Charges Inpatient E&M: 92461 Disch Hosp >30min
[2023-04-13 15:34] VITALS: BP 140/67; PULSE 72; RESP 16; TEMP 36.7; O2SAT 92
--- NOTE | 2023-04-13 16:00 | PHA.DC.MC.R ---
Pharmacy [facility] has performed discharge medication reconciliation and counseling for this patient. 1. LEVOFLOXACIN 750MG PO Q48 X 3 DOSES 2. NASAL SPRAY 2SPRAYS TID PRN NASAL DRYNESS The patient's discharge medication list was reviewed for discrepancies and discrepancies were resolved. The patient was counseled on the following discharge medications and changes in medications for homegoing were reviewed. The Reason for Use, instructions for use, and potential side effects were reviewed for all new medications. The patient's questions regarding all of their medications were answered. The patient was able to verbally demonstrate an understanding of their discharge medications. Medications at Discharge Home Medications aspirin 81 mg chewable tablet 81 mg PO DAILY@0800 09/18/18 famotidine 20 mg tablet (Acid Chemical Dependency Therapist (famotidine)) 20 mg PO QHS gerd 04/11/19 ascorbate calcium (vitamin C) 500 mg tablet 500 mg PO DAILY 07/01/19 multivitamin-ferrous fumarate-folic acid 18 mg-400 mcg tablet (Centrum Complete) 1 tab PO QHS 07/01/19 ergocalciferol (vitamin D2) 1,250 mcg (50,000 unit) capsule (Vitamin D2) 1,250 mcg PO Q2W 10/07/19 losartan 100 mg tablet 100 mg PO DAILY htn #90 tabs 04/25/22 atorvastatin 40 mg tablet 40 mg PO .qod #45 tabs 08/17/22 clopidogrel 75 mg tablet 75 mg PO DAILY #90 tabs 08/30/22 amlodipine 2.5 mg tablet 2.5 mg PO BID #180 tabs 09/15/22 levofloxacin 750 mg tablet 750 mg PO Q48H #3 tabs 04/13/23 sodium chloride 0.65 % nasal spray aerosol (Deep Sea Nasal) 2 spray NASAL TID PRN PRN NASAL DRYNESS #0 mL 04/13/23
--- NOTE | 2023-04-13 16:43 | PCM.PN.REN ---
Subjective Subjective Following for KAROL and CKD. The patient is being discharged today. He denies chest pain or shortness of breath. He does complain of fatigue although he did just finish physical therapy. There is no nausea or vomiting. Objective Data Objective Data Vital Signs: Vital Signs Temp Pulse Resp BP Pulse Ox O2 Del Method O2 Flow Rate 98.0 F 72 16 140/67 H 92 Room Air 2 04/13/23 15:34 04/13/23 15:34 04/13/23 15:34 04/13/23 15:34 04/13/23 15:34 04/13/23 15:49 04/13/23 07:51 FiO2 30 04/11/23 06:00 Oxygen Flow Rate (L/min) 2 Oxygen Delivery Method Room Air Weight: 78.7 kg Body Mass Index (BMI) 24.9 Intake & Output: Intake and Output for Last 24 Hours 04/11/23 04/12/23 04/13/23 23:59 23:59 23:59 Intake Total 400 / 400 1450.5833 / 1450.5833 56.25 / 56.25 Output Total 1675 / 1675 4600 / 4600 1375 / 1375 Balance -1275 / -1275 -3149.4167 / -3149.4167 -1318.75 / -1318.75 Lab / Micro Data 04/13/23 06:40 04/13/23 06:40 Labs: Laboratory Results - last 24 hr 04/13/23 06:40: WBC 30.6 H*, RBC 3.22 L, Hgb 10.1 L, Hct 29.4 L, MCV 91.3, MCH 31.4, MCHC 34.4, RDW Std Deviation 49.1 H, RDW Coeff of Gaby 14.6, Plt Count 68 L, MPV 10.9, Immature Gran % (Auto) BLOOD SPLATTER ANALYST, Neut % (Auto) BLOOD SPLATTER ANALYST, Lymph % (Auto) BLOOD SPLATTER ANALYST, [place] % (Auto) BLOOD SPLATTER ANALYST, Eos % (Auto) BLOOD SPLATTER ANALYST, Baso % (Auto) BLOOD SPLATTER ANALYST, Absolute Neuts (auto) 24.5 H, Absolute Lymphs (auto) 1.21, Total Counted 100, Neutrophils % (Manual) 87 H, Lymphocytes % (Manual) 4 L, Monocytes % (Manual) 8, Other Cells % 1, Nucleated RBC % 0.2, Differential Comment SCANNED, Diff Path Review May foll, Sodium 146 H, Potassium 3.9, Chloride 117 H, Carbon Dioxide 23.0, Anion Gap 6, BUN 59 H, Creatinine 1.70 H, Estim Creat Clear Calc 39.96, Est GFR (MDRD) Af Amer 51 L, Est GFR (MDRD) Non-Af 42 L, BUN/Creatinine Ratio 34.7 H, Glucose 99, Calcium 8.0 L, Phosphorus 3.1, Total Bilirubin 1.20 H, AST 109 H, ALT 259 H, Alkaline Phosphatase 256 H, Total Protein 5.9 L, Albumin 1.9 L, Globulin 4.0, Albumin/Globulin Ratio 0.5 L Micro: Microbiology 04/08/23 22:36 Urine, Clean Catch Urine Culture - Final Escherichia coli 04/08/23 18:58 Blood Culture (Wb) - Anticubital Left Blood Culture - Final Escherichia coli 04/08/23 18:50 Blood Culture (Wb) - Anticubital Right Blood Culture - Preliminary 04/08/23 18:40 Stool Stool Occult Blood (ALFONSO) - Final Occult Blood Positive 04/08/23 18:30 Mucosa - Nose SARS-CoV-2, Influenza & RSV (PCR) - Final Physical Exam Narrative Alert awake oriented x 3 no obvious distress s1s2 no murmurs lungs clear anteriorly, diminished breath sounds posterior bases. On O2 2 L nasal cannula abdomen soft, nontender no edema moya + with pinkish-yellow urine in bag, no clots Assessment & Plan Assessment/Plan (1) KAROL (acute kidney injury): PLAN: - CKD stage IIIa, baseline creatinine around 1.5. Patient was admitted with severe septic shock. KAROL likely ATN in the setting of sepsis, hypotension. CT abdomen with left-sided hydronephrosis, he is s/p stenting 04/09. Clinically improving. Off Levophed drip for few days. SCr 3.61mg/dL 04/09--> today Scr 1.70. There is no acute indication for CREDIT COLLECTIONS REP. Patient has good urine output. Potassium is 3.9. -Discussed follow-up plan with the patient and his daughter. The patient should be seen within a month of discharge. In regards to his hypokalemia and hypophosphatemia, his renal function is good enough that he should be able to drink milk to replace both. The patient had been complaining about the cost of Neutra-Phos. - Patient has a history of hypophosphatemia in past and was on phos supplements. However, the cause of Neutra-Phos was high recently. I think and get away with 1 to 2 glasses of milk per day which is basically what is in Neutra-Phos. We will recheck phosphorus level along with renal function and potassium level prior to next visit. - Lactic acidosis. S/p IV fluid resuscitation. Off pressors. White count peaked at 44,000 yesterday, today 30.6. -Septic shock secondary to ecoli UTI, with obstructing stones; s/p ureteral stent placement. IV antibiotics changed from Zosyn to now on ceftriaxone. No further intervention per urology until sepsis resolved. - acute hypoxic respiratory failure; Required bipap, now on O2 nasal cannula at 3 L. Received dose lasix again yesterday. -Discussed nephrology plan with Dr. Martinez. (2) Stage III chronic kidney disease: QUALIFIERS: Chronic kidney disease stage 3 subtype: stage 3a (GFR 45-59) Qualified Code(s): N18.31 - Chronic kidney disease, stage 3a
--- NOTE | 2023-04-13 16:44 | CASEMGMT ---
Patient has order for discharge. RN CM in to discuss needs at discharge, daughter at bedside. Patient and daughter deny needs at discharge. Patient and daughter had no further questions or concerns.
[2023-04-17 10:16] LABS: Pathologist Review Reviewed
== END 2023-04-13 17:54 | disposition home or self-care (01) | DRG 853 ==
LOC: ED 21:46 → ICU 04-09 01:45 → PCU 04-11 16:24
PROVIDERS: Internal Medicine; Internal Medicine Critical Care Medicine; Nurse Practitioner; Nurse Practitioner Adult Health; Urology; Admitting Provider Internal Medicine; Emergency Provider Emergency Medicine; PCP Internal Medicine
PROC: 0T7B8DZ Dilation of Bladder with Intraluminal Device, Via Natural or Artificial Opening Endoscopic (ICD-10-PCS; CPT 52332; principal; 2023-04-09 06:00)
DX: A41.51 Sepsis due to Escherichia coli [E. coli] (principal); J96.01 Acute respiratory failure with hypoxia; D65 Disseminated intravascular coagulation [defibrination syndrome]; N17.0 Acute kidney failure with tubular necrosis; R65.21 Severe sepsis with septic shock; E87.20 Acidosis, unspecified; R17 Unspecified jaundice; N18.4 Chronic kidney disease, stage 4 (severe); N13.6 Pyonephrosis; N10 Acute pyelonephritis; D86.0 Sarcoidosis of lung; I12.9 Hypertensive chronic kidney disease with stage 1 through stage 4 chronic kidney disease, or unspecified chronic kidney disease; I34.0 Nonrheumatic mitral (valve) insufficiency; E78.5 Hyperlipidemia, unspecified; K21.9 Gastro-esophageal reflux disease without esophagitis; I25.10 Atherosclerotic heart disease of native coronary artery without angina pectoris; E87.6 Hypokalemia; Z79.02 Long term (current) use of antithrombotics/antiplatelets; Z79.82 Long term (current) use of aspirin; Z95.5 Presence of coronary angioplasty implant and graft; N16 Renal tubulo-interstitial disorders in diseases classified elsewhere; Z79.52 Long term (current) use of systemic steroids; Z85.46 Personal history of malignant neoplasm of prostate
CPT/HCPCS: 36415; 71045; 71046; 71250; 74176; 76000; 80053; 80069; 81001; 82274; 82550; 82570; 83605; 83690; 84100; 84300; 85025; 85379; 85384; 85610; 85730; 86850; 86900; 86901; 87040; 87077; 87086; 87088; 87186; 87631; 93005; 93970; 94002; 94668; 94762; 97116; 97162; 97166; 97530; 99284; J7030; J7040; J7050; A4216; C1769; C2617; J1940; J2405; J3490; J7799

== ENCOUNTER → 2023-04-18 | Outpatient (CLI) | payer MEDICARE, SELFPAY ==
--- OUTSIDE RECORDS SUMMARY | 2023-04-18 08:54 | XMS RPT_ITS | CCD ---
Author Name Unknown Address [address] [place] [address] Organization [facility] Care Team Providers Care Prototype Machinist Name Role Phone SIMON Garrison, Tiffanie Garay Unavailable Unavailabl e TavallaeeShekhar Attending Unavailable TavallaeeShekhar Primary Care Unavailable TavallaeeMeShekhar M Attending Unavailable TavallaeeShekhar Primary Care Unavailable TavallaeeShekhar Admitting Unavailable TavallaeeShekhar Attending Unavailable Tavallaee, Shekhar M Primary Care Unavailable TavallaeeMeShekhar M Attending Unavailable Tavallaee, Shekhar M Primary Care Unavailable Tavallaee, Shekhar Jarrod Attending Unavailable Tavallaee, Shekhar M Primary Care Unavailable Bassett, Vanessa Unavailable Unavailable Tavallaee, Shekhar Unavailable Unavailable Tavallaee, Shekhar M Unavailable Unavailable Tavallaee, Shekhar Jarrod Unavailable Unavailable Unavailable Tavallaee, Shekhar Gregazzam Primary Care Unav ailable TavallaeeShekhar Attending Unav ailable TavallaeeShekhar Referring Unav ailable Tavallaee, Shekhar Monazzoilam Primary Care Unav ailable TavallaeeShekhar Attending Unav ailable TavallaeeShekhar Referring Unav ailable Tavallaee, Shekharsofiya Wade Primary Care Unav ailable Tavallaee, Shekhar [...] Shekhar Wade Referring Unav ailable Tavallaee, Shekhar Garzaazdavid Primary Care Unav ailable TavallShekhar villarreal MD Primary Care Provider Shekhar Madrigal MD Unavailable [phone] Shekhar Madirgal MD Unavailable [phone] SHEKHAR MADRIGAL Attending Unavailable SHEKHAR MADRIGAL Primary Care Unavailable SHEKHAR MADRIGAL Attending Unavailable SHEKHAR MADRIGAL Primary Care Unavailable SHEKHAR MADRIGAL Attending Unavailable SHEKHAR MADRIGAL Primary Care Unavailable Amarilis Swanson RN Unavailable Unavailable Allergies Allergy Classification Reported Allergen(s) Allergy Type Date of Onset Reaction(s) Facility (1 source) No Known Medication Allergies; Translations: [No Known Medication Allergies] Propensity to adverse reactions to drug (disorder) [facility] Repository Medications Current Medications Medication Drug Class(es) Dates Sig (Normalized) Sig (Original) amLODIPine 2.5 mg oral tablet (16 sources) Dihydropyridine Calcium Channel Genaro Start: 06-25-2019 [...] Date Episodic/Chronic Acute and unspecified renal failure (20 sources) Chronic renal failure; Translations: [Chronic kidney disease, Stage III (moderate)] Onset: 04-16-2022 06-12-2022 Chronic Administrative/social admission (8 sources) Advance directive discussed with patient; Translations: [Other specified counseling] Episodic Anxiety disorders (18 sources) Mixed anxiety and depressive disorder; Translations: [Anxiety state, unspecified] Onset: 04-16-2022 04-16-2022 Chronic Calculus of urinary tract (19 sources) History of calculus of kidney; Translations: [Personal history of urinary calculi] Onset: 04-16-2022 04-16-2022 Episodic Cancer of prostate (19 sources) Malignant tumor of prostate; Translations: [Malignant neoplasm of prostate] Onset: 04-16-2022 06-12-2022 Chronic Chronic kidney disease (2 sources) Chronic kidney disease; Translations: [Chronic kidney disease, stage 3 unspecified (CMS/HCC)] Onset: 04-16-2022 Coronary atherosclerosis and other heart disease (20 sources) Old myocardial infarction; Translations: [Coronary arteriosclerosis] Onset: 04-16-2022 06-12-2022 Chronic Esophageal disorders (18 sources) Gastroesophageal reflux disease; Translations: [Esophageal reflux] Onset: 04-16-2022 04-16-2022 Chronic Essential hypertension (19 sources) Hypertensive disorder; Translations: [Unspecified essential hypertension] Onset: 04-16-2022 06-12-2022 Chronic Genitourinary symptoms and ill-defined conditions (1 source) History of urinary tract infection; Translations: [Personal history of urinary (tract) infections] 04-17-2023 Episodic Immunity disorders (6 sources) Sarcoidosis; Translations: [Sarcoidosis] Onset: 04-16-2022 04-16-2022 Chronic Nutritional deficiencies (20 sources) Vitamin D deficiency; Translations: [Unspecified vitamin D deficiency] Onset: 04-16-2022 06-12-2022 Chronic Other aftercare (2 sources) Other senior living (current) drug therapy; Translations: [Other senior living (current) drug therapy] Onset: 12-11-2022 Episodic Other nervous system disorders (14 sources) Peripheral nerve disease ; Translations: [Unspecified hereditary and idiopathic peripheral neuropathy] Onset: 04-16-2022 04-16-2022 Chronic Other nutritional; endocrine; and metabolic disorders (18 sources) Hypophosphatemia; 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] Onset: 04-16-2022 04-16-2022 Chronic Residual codes; unclassified (1 source) Bilateral lower limb edema; Translations: [Localized edema] 04-17-2023 Episodic Screening and history of mental health and substance abuse codes (8 sources) Screening - NAD; Translations: [Screening for depression] Episodic Unclassified (1 source) No current problems or disability 03-12-2017 Viral infection (1 source) Disease caused by 2019-nCoV; Translations: [COVID-19] 03-08-2023 Episodic Viral infection (2 sources) COVID-19; Translations: [COVID-19] Onset: 03-08-2023 Past or Other Problems Problem Classification Problem Date Documented Da te Episodic/Chronic Cancer of prostate (3 sources) History of malignant neoplasm of prostate; Translations: [History of malignant neoplasm of prostate] Episodic Deficiency and other anemia (8 sources) Anemia; Translations: [Anemia, unspecified] Onset: 04-16-2022 Resolved: 06-12-2022 06-12-2022 Episodic Immunizations and screening for infectious disease (20 sources) Patient encounter status; Translations: [Other specified vaccination] Onset: 06-18-2018 04-16-2022 Episodic Results Test Name Value Interpretation Reference Range Facil ity Vital Signs Date Time Vital Sign Value Performing Clinician Faci lity 04-17-2023 12:36-0500 Body height 177.8 cm Shekhar Madrigal MD Work Phone: [facility] 04-17-2023 12:36-0500 Body mass index (BMI) [Ratio] 22.38 kg/m2 Shekhar Madrigal MD Work Phone: [facility] 04-17-2023 12:36-0500 Body weight 70.76 kg Shekhar Madrigal MD Work Phone: [facility] 04-17-2023 12:36-0500 Diastolic blood pressure 77 mm[Hg] Shekhar Madrigal MD Work Phone: [facility] 04-17-2023 12:36-0500 Heart rate 73 /min Shekhar Madrigal MD Work Phone: [facility] 04-17-2023 12:36-0500 Systolic blood pressure 138 mm[Hg] Shekhar Madrigal MD Work Phone: [facility] 06-12-2022 07:55-0400 Body height 177.8 cm Shekhar Madrigal MD Work Phone: [facility] 06-12-2022 07:55-0400 Body mass index (BMI) [Ratio] 24.25 kg/m2 Shekhar Madrigal MD Work Phone: [facility] 06-12-2022 07:55-0400 Body weight 76.66 kg Shekhar Madrigal MD Work Phone: [facility] 06-12-2022 07:55-0400 Diastolic blood pressure 68 mm[Hg] Shekhar Madrigal MD Work Phone: [facility] 06-12-2022 07:55-0400 Heart rate 60 /min Shekhar Madrigal MD Work Phone: [facility] 06-12-2022 07:55-0400 Systolic blood pressure 114 mm[Hg] Shekhar Madrigal MD Work Phone: [facility] 01-10-2022 16:41-0500 Body height 177.8 cm Shekhar Madrigal Work Phone: [facility] Work Phone: 01-10-2022 16:41-0500 Body mass index (BMI) [Ratio] 23.82 kg/m2 Shekhar Jarrod Tavallaee Work Phone: [facility] Work Phone: 01-10-2022 16:41-0500 Body surface area Derived from formula 1.93 m2 Shekhar M Tavallaee Work Phone: [facility] Work Phone: 01-10-2022 16:41-0500 Body weight 75.3 kg Shekhar M Tavallaee Work Phone: [facility] Work Phone: 01-10-2022 16:41-0500 Diastolic blood pressure 76 mm[Hg] Shekhar Jarrod Tavallaee Work Phone: [facility] Work Phone: 01-10-2022 16:41-0500 Heart rate 72 /min Shekhar Jarrod Tavallaee Work Phone: [facility] Work Phone: 01-10-2022 16:41-0500 Systolic blood pressure 126 mm[Hg] Shekhar Jarrod Tavallaee Work Phone: [facility] Work Phone: 01-04-2022 08:58-0500 Body height 177.8 cm Shekhar Jarrod Tavallaee Work Phone: [facility] Work Phone: 01-04-2022 08:58-0500 Body mass index (BMI) [Ratio] 24.11 kg/m2 Shekhar M Tavallaee Work Phone: [facility] Work Phone: 01-04-2022 08:58-0500 Body surface area Derived from formula 1.94 m2 Shekhar M Tavallaee Work Phone: [facility] Work Phone: 01-04-2022 08:58-0500 Body weight 76.2 kg Shekhar Jarrod Tavallaee Work Phone: [facility] Work Phone: 01-04-2022 08:58-0500 Diastolic blood pressure 79 mm[Hg] Shekahr Jarrod Tavallaee Work Phone: [facility] Work Phone: 01-04-2022 08:58-0500 Heart rate 69 /min Shekhar Jarrod Tavallaee Work Phone: [facility] Work Phone: 01-04-2022 08:58-0500 Systolic blood pressure 138 mm[Hg] Shekhar M Tavallaee Work Phone: [facility] Work Phone: 12-12-2021 08:01-0400 Body height 177.8 cm Shekhar Jarrod Tavallaee Work Phone: [facility] Work Phone: 12-12-2021 08:01-0400 Body mass index (BMI) [Ratio] 23.96 kg/m2 Shekhar Jarrod Tavallaee Work Phone: [facility] Work Phone: 12-12-2021 08:01-0400 Body surface area Derived from formula 1.93 m2 Shekhar M Tavallaee Work Phone: [facility] Work Phone: 12-12-2021 08:01-0400 Body weight 75.75 kg Shekhar M Tavallaee Work Phone: [facility] Work Phone: 12-12-2021 08:01-0400 Diastolic blood pressure 72 mm[Hg] Shekhar M Tavallaee Work Phone: [facility] Work Phone: 12-12-2021 08:01-0400 Heart rate 62 /min Shekhar M Tavallaee Work Phone: [facility] Work Phone: 12-12-2021 08:01-0400 Systolic blood pressure 128 mm[Hg] Shekhar Jarrod Fisherallaee Work Phone: [facility] Work Phone: 05-30-2021 07:59-0400 Body height 177.8 cm Shekhar Jarrod Fisherallaee Work Phone: [facility] Work Phone: 05-30-2021 07:59-0400 Body mass index (BMI) [Ratio] 24.89 kg/m2 Shekharrenea Fisherallaee Work Phone: [facility] Work Phone: 05-30-2021 07:59-0400 Body surface area Derived from formula 1.96 m2 Shekhar Fisherallaee Work Phone: [facility] Work Phone: 05-30-2021 07:59-0400 Body weight 78.7 kg Shekhar Sternaee Work Phone: [facility] Work Phone: 05-30-2021 07:59-0400 Diastolic blood pressure 78 mm[Hg] Shekhar Jarrod Tavallaee Work Phone: [facility] Work Phone: 05-30-2021 07:59-0400 Heart rate 68 /min Shekhar Jarrod Tavallaee Work Phone: [facility] Work Phone: 05-30-2021 07:59-0400 Systolic blood pressure 122 mm[Hg] Shekhar Garay Tavallaee Work Phone: [facility] Work Phone: 11-29-2020 08:03-0400 Body height 177.8 cm Shekhar M Tavallaee Work Phone: [facility] Work Phone: 11-29-2020 08:03-0400 Body mass index (BMI) [Ratio] 23.82 kg/m2 Shekhar M Tavallaee Work Phone: [facility] Work Phone: 11-29-2020 08:03-0400 Body surface area Derived from formula 1.93 m2 Shekharrenea Fisherallaee Work Phone: [facility] Work Phone: 11-29-2020 08:03-0400 Body weight 75.3 kg Shekharrenea Sternaee Work Phone: [facility] Work Phone: 11-29-2020 08:03-0400 Diastolic blood pressure 78 mm[Hg] Shekhar M Tavallaee Work Phone: [facility] Work Phone: 11-29-2020 08:03-0400 Heart rate 66 /min Shekharrenea Fisherallaee Work Phone: [facility] Work Phone: 11-29-2020 08:03-0400 Systolic blood pressure 112 mm[Hg] Shekhar M Tavallaee Work Phone: [facility] Work Phone: Encounters Encounter Date Encounter Type Care Provider Facility Start: 04-17-2023 End: 04-17-2023 Office outpatient visit 25 minutes Shekhar Madrigal MD Work Phone: [facility] Procedures Date Procedure Procedure Detail Performing Clinician Start: 04-17-2023 Urnls dip stick/tabl et rgnt auto w/o microscopy Shekhar Madrigal MD Work Phone: Start: 12-11-2022 INFLUENZA, HIGH-DOSE SEASONAL. QUADRIVALENT, PRESERVATIVE FREE SHEKHAR MADRIGAL Start: 04-16-2022 H/O: surgery H/O prostatectomy Doreen Madrigal MD Work Phone: Start: 02-13-2020 Colonoscopy Shekhar davis MD Work Phone: Start: 02-13-2020 Colonoscopy Shekhar Madrigal Work Phone: Plan of Treatment Date Care Activity Detail Author Start: 02-12-2030 Screening for malignant neoplasm of colon [facility] Start: 05-24-2028 DTaP/Tdap/Td Vaccines (3 - Td or Tdap) DTaP/Tdap/Td Vaccines (3 - Td or Tdap) [facility] Start: 06-18-2023 End: 06-18-2023 Patient encounter procedure 06/18/2023 3:00 PM EDT Office Visit [facility] [address] [place] [address] Shekhar Madrigal MD [address] [place] [address] [facility] Start: 06-14-2023 Medicare Annual Wellness Visit Medicare Annual Wellness Visit (AWV) [facility] Start: 05-01-2023 End: 05-01-2023 Patient encounter procedure 05/01/2023 3:45 PM EST Office Visit [facility] [address] [place] [address] Shekhar Madrigal MD [address] [place] [address] [facility] Start: 04-17-2023 End: 04-17-2024 CBC W Auto Differential panel - Blood CBC and Auto Differential Lab Routine Chronic kidney failure, stage 3 (moderate) (CMS/HCC) H/O urinary tract infection Nephrolithiasis Expected: 04/17/2023 (Approximate), Expires: 04/17/2024 [facility] Service Area Work Phone: Immunizations Immunization Date Immunization Notes Care Provider Fa cility 01-03-2023 Pneumococcal conjuga te vaccine, 20-valent (PREVNAR 20) Shekhar Madrigal MD Work Phone: [facility] Work Phone: 12-11-2022 Flu vaccine, quadrivalent, high-dose, preservative free, age 65y+ (FLUZONE) Shekhar Madrigal MD Work Phone: [facility] Work Phone: 06-12-2022 diphtheria, tetanus toxoids and acellular pertussis vaccine, unspecified formulation Shekhar Madrigal MD Work Phone: [facility] Work Phone: 06-12-2022 zoster vaccine-recombinant adjuvanted (Shingrix, PF,) 50 mcg/0.5 mL vaccine Shekhar Madrigal MD Work Phone: [facility] Work Phone: 06-12-2022 pneumoc 20-micaela conj- dip cr,PF, (Prevnar 20, PF,) 0.5 mL vaccine Shekhar Madrigal MD Work Phone: [facility] Work Phone: 12-12-2021 Fluzone High-Dose Quadrivalent 0.7 ML Intramuscular Suspension Prefilled Syringe; Translations: [Fluzone High-Dose Quadrivalent 0.7 ML Intramuscular Suspension Prefilled Syringe] Shekhar Madrigal Work Phone: [facility] Work Phone: Payers Date Payer Category Payer Medicare [employer] MEDICARE A ETEZIO FLEMING MEDICARE [id number] 2021-Present [address] [place] [address] [id number] 2019 Private Health Insurance [id number] 2017 Private Health Insurance 1950 Unknown [id number] 17 1949 Unknown [id number] 17 1949 Unknown [id number] 17 1949 Unknown [id number] 17 1949 Unknown [id number] 17 1949 Unknown [id number] 56 1949 Unknown [id number] 56 1949 Unknown [id number] 56 1949 Unknown [id number] 56 1949 Unknown [id number] 56 1949 Unknown [id number] 56 1949 Unknown [id number] 244 1949 Unknown [id number] 244 1949 Unknown [id number] 244 Unknown [employer] Social History Date Type Detail Facility Assertion Tobacco smoking consumption unknown (finding) [facility] Work Phone: Start: 04-16-2022 End: 03-08-2023 Non-smoker Non-smoker [facility] Work Phone: Start: 04-16-2022 Tobacco smoking stat us TXIS Never smoked tobacco [facility] Work Phone: Start: 04-16-2022 Tobacco use and exposure Smokeless tobacco non-user [facility] Work Phone: Start: 06-12-2022 End: 04-17-2023 Alcohol intake Lifetime non-drinker (finding) [facility] Work Phone: Start: 04-16-2022 End: 03-08-2023 Tobacco use panel [facility] Work Phone: Start: 1950 Sex Assigned At Not on file U [facility] Work Phone: Start: 06-02-2022 End: 04-17-2023 Exposure to SARS-CoV-2 (event) Not sure [facility] Start: 02-26-2023 End: 03-08-2023 Exposure to SARS-CoV-2 (event) Unable to assess [facility] Work Phone: Functional Status Date Assessment Result Facility NEGATED: Highlighted row Functional performance Functional status health issues are not documented Disease [facility] Work Phone: Mental Status Date Assessment Result Facility NEGATED: Highlighted row Cognitive function [Interpretation] Cognitive status health issues are not documented Disease [facility] Work Phone: Clinical Notes 06-12-2022 to 04-17-2023 Shekhar Madrigal MD - 04/17/2023 12:30 PM Melissa Madrigal MD - 06/12/2022 8:00 AM EDT Note Date & Type Note Facility 04-17-2023 History of Present illness Narrative Subjective Patient ID: Andrés Corona is a 72 y.o. male who presents for Follow-up (Hospitals discharge for septic shock and kidney stone). Fu after dc for sepsis and kidney stone Feels better, but feel tired and some PND Last levaquin is for tomorrow Review of Systems Constitutional: Negative. Negative for [...] other systems reviewed and are negative. Objective Physical Exam Vitals reviewed. Constitutional: General: He [...] back: Normal range of motion. No rigidity. Right lower leg: Edema (mild) present. Left lower leg: Edema (mild) present. Lymphadenopathy: Cervical: No cervical adenopathy. Skin: General: Skin is warm. Findings: No rash. Neurological: General: No focal deficit present. Mental Status: He is alert and oriented to person, place, and time. Psychiatric: Mood and Affect: Mood normal. Behavior: Behavior normal. BP 138/77 (BP Location: Left arm, Patient Position: Sitting) Pulse 73 Ht 1.778 m (5' 10 ) Wt 70.8 kg (156 lb) BMI 22.38 kg/m PSA external Date/Time Value Ref Range Status 01/05/2023 12:54 PM 0.01 ng/mL Final Assessment/Plan Problem List Items Addressed This Visit Chronic kidney failure, stage 3 (moderate) (CMS/HCC) - Primary Relevant Orders CBC and Auto Differential Comprehensive Metabolic Panel Phosphorus POCT UA Automated manually resulted (Completed) Malignant neoplasm of prostate ([facility]) Other Visit Diagnoses H/O urinary tract infection Relevant Orders CBC and Auto Differential Comprehensive Metabolic Panel Phosphorus POCT UA Automated manually resulted (Completed) Nephrolithiasis Relevant Orders CBC and Auto Differential Comprehensive Metabolic Panel Phosphorus POCT UA Automated manually resulted (Completed) Bilateral lower extremity edema Relevant Orders Compression Stockings 15-20 mmHg Ua negative Clinically improving Labs reviewed with pt Marisol 1 week with bw MDM 1) COMPLEXITY: MORE THAN 1 STABLE CHRONIC CONDITION ADDRESSED 2)DATA: TESTS INTERPRETED AND OR ORDERED, TOOK INDEPENDENT HISTORY OR RECORDS REVIEWED 3)RISK: MODERATE RISK DUE TO NATURE OF MEDICAL CONDITIONS/COMORBIDITY OR MEDICATIONS ORDERED OR SURGICAL OR PROCEDURE REFERRAL, . documented in this encounter [facility] Work Phone: 06-12-2022 History of Present illness Narrative Subjective Reason for Visit: Andrés Corona is an 71 y.o. male here for [...] 6 mo bw documented in this encounter [facility] Work Phone: documented in this encounter [facility] Work Phone: Evaluation note* Diagnosis COVID-19- Primary documented in this encounter [facility] Work Phone: Evaluation note* Diagnosis Chronic kidney failure, stage 3 (moderate) ([facility])- Primary H/O urinary tract infection Nephrolithiasis Calculus of kidney Malignant neoplasm of prostate ([facility]/HCC) Malignant neoplasm of prostate Bilateral lower extremity edema documented in this encounter [facility] Work Phone: History of Present illness Narrative* PT C/O left wrist pain no numbness no tingling * FOR a couple of month * SEVERITY: mild * CHARACTERISTIC: chronic * EXACERBATION FACTOR: none * RELIEVING FACTOR: none * ASSOCIATED SYMPTOMS: none * PRIOR [place]: race -[facility] Work Phone: History of Present illness Narrative* The patient is being seen for the subsequent annual wellness visit. * Past Medical, Surgical and Family History: reviewed and updated in chart. * Medications and Supplements: Review of all medications by a prescribing practitioner or clinical pharmacist (such as prescriptions, OTCs, herbal therapies and supplements) documented in the medical record. * No, the patient is not using opioids. * Patient Self Assessment of Health Status: excellent. * Tobacco use: Non-User * Alcohol use: Non-User * Illicit drug use: Non-User * Current diet: well balanced diet. * Exercise Frequency: regularly. * Depression/Suicide Screening: . * During the past 2 weeks, the patient has not felt down, depressed or hopeless. * During the past 2 weeks, the patient has not felt little interest or pleasure in doing things. * Hearing Impairment: none. * Cognitive Impairment: No cognitive impairment observed. * Bathing: performs independently. * Dressing: performs independently. * Walking: performs independently. * Managing Finances: performs independently. * Shopping: performs independently. * Managing Medications: performs independently. * Housework / Basic Home Maintenance: performs independently. * Falls Risk Screening:. ANDRÉS has not fallen in the last 6 months. * Home safety risk factors: none. * Advance directives:. Advance Care Planning discussed and documented in the medical record, patient did not wish or was not able to name a surrogate decision maker or provide an advance care plan. * Additional Information: BRING A COPY. * HERE FOR F/U WITH LABS * LBP , CHRONIC FOR YEARS OFF AND ON, MILD , DOES NOT HAVE TO TAKE ANY THING USUALLY, ICE WORKS * NUMBNESS AND TINGLING IN FEET, MILD , NOT INTRESTED TO TAKE MEDS FOR IT * WELLNESS EXAM [facility] Work Phone: History of Present illness Narrative* HERE FOR F/U WITH LAB * FEELS FINE * POST ER, DID NOT HAVE PNEUMONIA JUST SCAR OF SARCOIDOSIS [facility] Work Phone: History of Present illness Narrative* PT C/O LBP WITH RADIATION TO THE RIGHT LE, AFTER RACKING * FOR 5 DAYS * SEVERITY: MODERATE * CHARACTERISTIC: ACUTE * EXACERBATION FACTOR: EXERTION * RELIEVING FACTOR: REST * ASSOCIATED SYMPTOMS:TINGLING RIGHT LE * PRIOR [place]: TYLRNOL, ICEING [facility] Work Phone: History of Present illness NarrativeHERE FOR F/U FEELS [facility]TER[facility] Work Phone: History of Present illness Narrative* Shekhar Madrigal MD - 03/08/2023 4:00 PM EST Subjective Patient ID: Andrés Corona is a 72 y.o. male who presents [...] Call me if worse documented in this [facility] Work Phone: Summary Purpose Family History Mother Name Dates Details Family history of [...] DATE CREATED AUTHOR AUTHOR'S ORGANIZ ATION 01/12/2022 [facility] DATE CREATED AUTHOR AUTHOR'S ORGANIZ ATION 01/12/2022 [employer] DATE CREATED AUTHOR AUTHOR'S ORGANIZ ATION 03/11/2023 [facility] Reason for Visit (unrecogniz ed section and content) Reason Comments Follow-up Pt covid positive to day has cough some times a minor headache was taking airborne Reason Comments Follow-up Hospitals discharge for septic shock and kidney stone Care Teams (unrecognized sec tion and content) Prototype Machinist Relationship Specialty Start Date End Date Shekhar Madrigal MD [address] [place] [address] PCP - General 04/03/19 Shekhar Madrigal MD [address] [place] [address] PCP - [employer] Medicare Advantage PCP 02/26/21 Prototype Machinist Relationship Specialty Start Date End Date Shekhar Madrigal MD [address] [place] [address] PCP - General 04/03/19 Shekhar Madrigal MD [address] [place] [address] PCP - [employer] Medicare Advantage PCP 02/26/21 Amarilis Swanson, transmission calibration engineerHead Silverman 04/16/23 FOR RECORDS PERTAINING TO PATIENTS WHO ARE [...] BE BASED ON THE PRIMARY CLINICAL RECORDS. [facility] Applied Identity [facility]. provides no warranty or guarantee of the accuracy or completeness of information in this document.
[2023-04-18 09:13] LABS: Absolute Lymphocyte Count 1.21 X10^3/uL (0.83-4.51); Absolute Neutrophil Count 8.9 X10^3/uL (2.0-7.7); Basophil# 0.03 X10^3/uL; Basophil% 0.3 % (0-1); Eosinophil# 0.26 X10^3/uL; Eosinophils% 2.3 % (0-5); Hematocrit 31.3 % (40-54); Hemoglobin 10.3 g/dL (13.0-16.5); Lymphocyte # 1.21 X10^3/ul (0.83-4.51); Lymphocyte % 10.5 % (19-41); Mean Corp Hgb Conc 32.9 g/dL (32-36); Mean Corpuscular Hgb 31.5 pg (27.0-32.0); Mean Corpuscular Volume 95.7 fL (80-94); Mean Platelet Vol. 9.9 fl (6.2-12.0); Monocyte# 0.97 X10^3/uL; Monocyte% 8.4 % (0-10); NRBC Flagged by Analyzer 0 % (0-5); Neutrophil # 8.85 X10^3/uL (2.7-7.7); Neutrophil % 76.5 % (47-70); Platelet Count 422 K/mm3 (150-450); RBC Distribution Width CV 14.1 % (11.6-14.6); RBC Distribution Width SD 49.7 fl (35.1-43.9); Red Blood Count 3.27 M/mm3 (4.6-6.2); White Blood Count 11.6 K/mm3 (4.4-11.0)
[2023-04-18 09:30] LABS: PTHIN 38.5 pg/mL (18.4-80.1)
[2023-04-18 09:33] LABS: Vitamin D,25 Hydroxy 58.6 ng/mL
[2023-04-18 10:08] LABS: ALB/GLOB Ratio 0.6 RATIO (0.9-2.4); AST(SGOT) 24 U/L (15-37); Alanine Aminotransfer ALT/SGPT 91 U/L (16-61); Albumin, Serum 2.6 g/dL (3.2-5.0); Alkaline Phosphatase 183 U/L (45-117); Anion Gap 6 (5-15); BUN 38 mg/dL (7-18); BUN/Creat Ratio 21.5 RATIO (10-20); Calcium,Total 9.2 mg/dL (8.5-10.1); Chloride 114 mmol/L (98-107); Creatinine, Serum 1.77 mg/dL (0.70-1.30); EST Glomerular Filtration Rate 40 mL/min (>60); Est Glom Filt Rate - Afr Amer 49 mL/min (>60); Globulin 4.7 g/dL (2.2-4.2); Glucose 94 mg/dL (74-106); Magnesium 2.1 mg/dL (1.6-2.6); Phosphorus 3.1 mg/dL (2.5-4.9); Potassium 4.2 mmol/L (3.5-5.1); Protein, Total 7.3 g/dL (6.4-8.2); Sodium Level 141 mmol/L (136-145)
[2023-04-18 10:11] LABS: Microalbumin,Random Urine 12.3 mg/L (NO RANGE EST.); Microalbumin:Creatinine Ratio 16.5 mg/g CRE (<30 mg/g CRE)
== END | disposition home or self-care (01) ==
PROVIDERS: PCP Internal Medicine; Referring Provider Internal Medicine; Visit Provider Internal Medicine Nephrology
DX: N18.31 Chronic kidney disease, stage 3a (principal); Z13.0 Encounter for screening for diseases of the blood and blood-forming organs and certain disorders involving the immune mechanism; Z87.440 Personal history of urinary (tract) infections; N20.0 Calculus of kidney; E55.9 Vitamin D deficiency, unspecified
CPT/HCPCS: 36415; 80053; 82043; 82306; 82570; 83735; 83970; 84100; 85025

== ENCOUNTER → 2023-06-15 | Outpatient (CLI) | payer MEDICARE, SELFPAY ==
[2023-06-15 09:15] LABS: Absolute Lymphocyte Count 1.02 X10^3/uL (0.83-4.51); Absolute Neutrophil Count 3.9 X10^3/uL (2.0-7.7); Basophil# 0.02 X10^3/uL; Basophil% 0.3 % (0-1); Eosinophil# 0.33 X10^3/uL; Eosinophils% 5.5 % (0-5); Hematocrit 36.2 % (40-54); Hemoglobin 11.9 g/dL (13.0-16.5); Lymphocyte # 1.02 X10^3/ul (0.83-4.51); Lymphocyte % 16.9 % (19-41); Mean Corp Hgb Conc 32.9 g/dL (32-36); Mean Corpuscular Hgb 31.1 pg (27.0-32.0); Mean Corpuscular Volume 94.5 fL (80-94); Mean Platelet Vol. 8.4 fl (6.2-12.0); Monocyte# 0.75 X10^3/uL; Monocyte% 12.4 % (0-10); NRBC Flagged by Analyzer 0 % (0-5); Neutrophil # 3.92 X10^3/uL (2.7-7.7); Neutrophil % 64.7 % (47-70); Platelet Count 299 K/mm3 (150-450); RBC Distribution Width CV 14.1 % (11.6-14.6); RBC Distribution Width SD 48.8 fl (35.1-43.9); Red Blood Count 3.83 M/mm3 (4.6-6.2); White Blood Count 6.1 K/mm3 (4.4-11.0)
[2023-06-15 10:02] LABS: PTHIN 24.5 pg/mL (18.4-80.1)
[2023-06-15 10:04] LABS: ALB/GLOB Ratio 0.9 RATIO (0.9-2.4); AST(SGOT) 22 U/L (15-37); Alanine Aminotransfer ALT/SGPT 26 U/L (16-61); Albumin, Serum 3.5 g/dL (3.2-5.0); Alkaline Phosphatase 84 U/L (45-117); Anion Gap 3 (5-15); BUN 29 mg/dL (7-18); BUN/Creat Ratio 19.1 RATIO (10-20); Calcium,Total 9.1 mg/dL (8.5-10.1); Chloride 110 mmol/L (98-107); Creatinine, Serum 1.52 mg/dL (0.70-1.30); EST Glomerular Filtration Rate 48 mL/min (>60); Est Glom Filt Rate - Afr Amer 58 mL/min (>60); Globulin 3.7 g/dL (2.2-4.2); Glucose 94 mg/dL (74-106); Magnesium 2.2 mg/dL (1.6-2.6); Phosphorus 2.8 mg/dL (2.5-4.9); Potassium 4.4 mmol/L (3.5-5.1); Protein, Total 7.2 g/dL (6.4-8.2); Sodium Level 139 mmol/L (136-145); Uric Acid 7.9 mg/dL (3.5-7.2)
[2023-06-15 10:05] LABS: Vitamin D,25 Hydroxy 59.6 ng/mL
[2023-06-15 10:08] LABS: Microalbumin,Random Urine 5.7 mg/L (NO RANGE EST.); Microalbumin:Creatinine Ratio 5.8 mg/g CRE (<30 mg/g CRE)
[2023-06-18 12:08] LABS: Vitamin D 1,25-Dihydroxy 58.4 pg/mL (24.8-81.5)
== END | disposition home or self-care (01) ==
LOC: LAB 08:49
PROVIDERS: PCP Internal Medicine; Referring Provider Internal Medicine Nephrology; Visit Provider Internal Medicine Nephrology
DX: I12.9 Hypertensive chronic kidney disease with stage 1 through stage 4 chronic kidney disease, or unspecified chronic kidney disease (principal); N18.31 Chronic kidney disease, stage 3a; Z13.0 Encounter for screening for diseases of the blood and blood-forming organs and certain disorders involving the immune mechanism; E55.9 Vitamin D deficiency, unspecified
CPT/HCPCS: 36415; 80053; 82043; 82306; 82570; 82652; 83735; 83970; 84100; 84550; 85025

== ENCOUNTER → 2023-10-03 | Outpatient (CLI) | payer MEDICARE, SELFPAY ==
[2023-10-03 09:13] LABS: CRP < 2.90 mg/L (0.0-3.0)
[2023-10-03 09:15] LABS: Erythrocyte Sedimentation Rate 7 mm/hr (0-20)
[2023-10-04 13:08] LABS: Angiotensin Convert Enzyme 42 U/L (14-82)
== END | disposition home or self-care (01) ==
LOC: LAB 07:59
PROVIDERS: PCP Internal Medicine; Referring Provider Internal Medicine Pulmonary Disease; Visit Provider Internal Medicine Pulmonary Disease
DX: R05.9 Cough, unspecified (principal); D86.0 Sarcoidosis of lung
CPT/HCPCS: 36415; 82164; 85652; 86140

== ENCOUNTER → 2023-12-08 | Outpatient (CLI) | payer MEDICARE, SELFPAY ==
[2023-12-08 07:55] LABS: Absolute Lymphocyte Count 1.39 X10^3/uL (0.83-4.51); Basophil# 0.03 X10^3/uL; Basophil% 0.3 % (0-1); Eosinophil# 0.43 X10^3/uL; Eosinophils% 4.9 % (0-5); Hematocrit 38.7 % (40-54); Hemoglobin 12.6 g/dL (13.0-16.5); Lymphocyte # 1.39 X10^3/ul (0.83-4.51); Lymphocyte % 15.7 % (19-41); Mean Corp Hgb Conc 32.6 g/dL (32-36); Mean Corpuscular Volume 95.1 fL (80-94); Mean Platelet Vol. 8.4 fl (6.2-12.0); Monocyte# 0.91 X10^3/uL; Monocyte% 10.3 % (0-10); NRBC Flagged by Analyzer 0 % (0-5); Neutrophil # 6.03 X10^3/uL (2.7-7.7); Neutrophil % 68.3 % (47-70); Platelet Count 291 K/mm3 (150-450); RBC Distribution Width CV 13.8 % (11.6-14.6); RBC Distribution Width SD 48.5 fl (35.1-43.9); Red Blood Count 4.07 M/mm3 (4.6-6.2); White Blood Count 8.8 K/mm3 (4.4-11.0)
[2023-12-08 09:51] LABS: ALB/GLOB Ratio 1.1 RATIO (0.9-2.4); AST(SGOT) 21 U/L (15-37); Alanine Aminotransfer ALT/SGPT 25 U/L (16-61); Albumin, Serum 3.8 g/dL (3.2-5.0); Alkaline Phosphatase 83 U/L (45-117); Anion Gap 5 (5-15); BUN 27 mg/dL (7-18); BUN/Creat Ratio 18.2 RATIO (10-20); Calcium,Total 9.4 mg/dL (8.5-10.1); Chloride 110 mmol/L (98-107); Cholesterol 158 mg/dL (200); Creatinine, Serum 1.48 mg/dL (0.70-1.30); EST Glomerular Filtration Rate 49 mL/min (>60); Est Glom Filt Rate - Afr Amer 60 mL/min (>60); Globulin 3.4 g/dL (2.2-4.2); Glucose 93 mg/dL (74-106); High Density Lipoprotein 52 mg/dL; Phosphorus 2.8 mg/dL (2.5-4.9); Potassium 4.2 mmol/L (3.5-5.1); Protein, Total 7.2 g/dL (6.4-8.2); Sodium Level 140 mmol/L (136-145); Triglycerides 130 mg/dL; Very Low Density Lipoprotein 26 mg/dL (5-40)
== END | disposition home or self-care (01) ==
LOC: LAB 07:26
PROVIDERS: PCP Internal Medicine; Referring Provider Internal Medicine; Visit Provider Internal Medicine
DX: Z00.00 Encounter for general adult medical examination without abnormal findings (principal); N18.30 Chronic kidney disease, stage 3 unspecified; E55.9 Vitamin D deficiency, unspecified; E78.00 Pure hypercholesterolemia, unspecified; I12.9 Hypertensive chronic kidney disease with stage 1 through stage 4 chronic kidney disease, or unspecified chronic kidney disease
CPT/HCPCS: 36415; 80053; 80061; 82306; 84100; 85025

== ENCOUNTER → 2024-02-06 | Outpatient (CLI) | payer MEDICARE, SELFPAY ==
--- NOTE | 2024-02-06 14:55 | RAD_ITS ---
EXAM: XR ABDOMEN, 1 VIEW CLINICAL INDICATION: CALCULUS OF URETER TECHNIQUE: Frontal supine view of the abdomen/pelvis. COMPARISON: No relevant prior studies available. FINDINGS: LOWER THORAX: No acute pathology. GASTROINTESTINAL TRACT: Unremarkable. Non-obstructive. No bowel or stomach distention. ORGANS: Calcification measuring 3 mm over the left kidney. No organomegaly. BONES/JOINTS: No acute pathology. SOFT TISSUES: No acute pathology. VASCULATURE: Small calcification in the right side of the pelvis likely represents a phlebolith. RAD/Abdomen Single View IMPRESSION: 1. Calcification measuring 3 mm over the left kidney. 2. Small calcification in the right side of the pelvis likely represents a phlebolith. Electronically Signed: Palomo Mcbride MD at 0:26 EST ,
[2024-02-06 16:25] LABS: PSA,Total- Diagnostic < 0.01 ng/mL (0.0-4.0)
== END | disposition home or self-care (01) ==
LOC: LAB 14:43
PROVIDERS: PCP Internal Medicine; Referring Provider Nurse Practitioner; Visit Provider Nurse Practitioner
DX: N20.1 Calculus of ureter (principal); C61 Malignant neoplasm of prostate
CPT/HCPCS: 36415; 74018; 84153

== ENCOUNTER → 2024-04-11 | Outpatient (CLI) | payer MEDICARE, SELFPAY ==
--- NOTE | 2024-04-11 17:05 | STRESSREP ---
Stress Test Report Exercise myocardial perfusion stress test. 73-year-old man with a history of coronary artery disease Stress protocol: Resting EKG demonstrates sinus bradycardia with a rate of 59 bpm resting blood pressure is 140/70 mmHg. The patient exercised according to the regular Teo protocol for a total duration of 12 minutes attaining a maximum heart rate of 144 bpm which was 98% of maximum predicted heart rate; the maximum workload was 13.7 metabolic equivalents. At rest there were no ST or T wave changes noted to suggest ischemia and at peak exercise upsloping ST changes only were noted which did not meet the criteria for ischemia. No clinical angina was noted the test was terminated due to the target heart rate being achieved/fatigue. The peak blood pressure was 180/52 mmHg. Rate-pressure product was 25,300. Myocardial perfusion protocol. 11.8 mCi of technetium 99m sestamibi was injected at rest. The patient exercised according to regular Teo protocol for total duration of 12 minutes and at peak exercise 34.5 mCi of technetium 99m sestamibi was injected stress images were obtained stress and rest images were reconstructed in comparing the short axis vertical long and horizontal long axis. Gated images were also obtained. Perfusion SPECT analysis: Review of the stress images demonstrate normal uptake of tracer noted in all areas of the myocardium. The resting images similarly demonstrate normal uptake of tracer noted in all areas of the myocardium. No areas of reversibility are noted to suggest ischemia no previous infarct was noted. Gated SPECT analysis: The gated ejection fraction is 69%. Conclusion: Normal exercise myocardial perfusion stress test at a high workload Preserved ejection fraction.
== END | disposition home or self-care (01) ==
PROVIDERS: PCP Internal Medicine; Referring Provider Physician Assistant Medical; Visit Provider Physician Assistant Medical
DX: I25.10 Atherosclerotic heart disease of native coronary artery without angina pectoris (principal); Z95.5 Presence of coronary angioplasty implant and graft
CPT/HCPCS: 78452; 93017; A9500

== ENCOUNTER → 2024-06-06 | Outpatient (CLI) | payer MEDICARE, SELFPAY ==
[2024-06-06 08:39] LABS: Absolute Lymphocyte Count 1.31 X10^3/uL (0.83-4.51); Absolute Neutrophil Count 4.6 X10^3/uL (2.0-7.7); Basophil# 0.02 X10^3/uL; Basophil% 0.3 % (0-1); Eosinophil# 0.42 X10^3/uL; Eosinophils% 5.9 % (0-5); Hematocrit 39.3 % (40-54); Hemoglobin 13.3 g/dL (13.0-16.5); Lymphocyte # 1.31 X10^3/ul (0.83-4.51); Lymphocyte % 18.3 % (19-41); Mean Corp Hgb Conc 33.8 g/dL (32-36); Mean Corpuscular Hgb 32.1 pg (27.0-32.0); Mean Corpuscular Volume 94.9 fL (80-94); Mean Platelet Vol. 8.9 fl (6.2-12.0); Monocyte# 0.78 X10^3/uL; Monocyte% 10.9 % (0-10); NRBC Flagged by Analyzer 0 % (0-5); Neutrophil % 64.3 % (47-70); Platelet Count 311 K/mm3 (150-450); RBC Distribution Width CV 13.2 % (11.6-14.6); RBC Distribution Width SD 46.6 fl (35.1-43.9); Red Blood Count 4.14 M/mm3 (4.6-6.2); White Blood Count 7.2 K/mm3 (4.4-11.0)
[2024-06-06 09:52] LABS: ALB/GLOB Ratio 1.5 RATIO (0.9-2.4); AST(SGOT) 25 U/L (<=37); Alanine Aminotransfer ALT/SGPT 18 U/L (<=46); Albumin, Serum 4.4 g/dL (3.4-4.8); Alkaline Phosphatase 81 U/L (40-129); Anion Gap 12 (5-15); BUN 28 mg/dL (4-19); BUN/Creat Ratio 17.3 RATIO (10-20); Calcium,Total 9.6 mg/dL (7.6-11.0); Carbon Dioxide 21.6 mmol/L (21.0-32.0); Chloride 106 mmol/L (98-108); Creatinine, Serum 1.61 mg/dL (0.70-1.20); EST Glomerular Filtration Rate 45 (>60); Globulin 2.9 g/dL (2.2-4.2); Glucose 90 mg/dL (70-99); Potassium 4.7 mmol/L (3.3-5.1); Protein, Total 7.3 g/dL (5.9-8.4); Sodium Level 139 mmol/L (133-145); Total Bilirubin 0.64 mg/dL (0.00-1.30); Vitamin D,25 Hydroxy 49.3 ng/mL (30-100)
== END | disposition home or self-care (01) ==
LOC: LAB 07:52
PROVIDERS: PCP Internal Medicine; Referring Provider Internal Medicine; Visit Provider Internal Medicine
DX: N18.30 Chronic kidney disease, stage 3 unspecified (principal); E78.00 Pure hypercholesterolemia, unspecified; I12.9 Hypertensive chronic kidney disease with stage 1 through stage 4 chronic kidney disease, or unspecified chronic kidney disease
CPT/HCPCS: 36415; 80053; 82306; 85025

== ENCOUNTER → 2024-06-20 | Outpatient (CLI) | payer MEDICARE, SELFPAY ==
--- NOTE | 2024-06-20 07:45 | RAD_ITS ---
PROCEDURE: HIP, UNI W/ PELVIS 2-3 VIEWS 06/20/2024 REASON FOR EXAM: RIGHT INGUINAL PAIN. PAIN INCREASED WITH WALKING AND FAST PACE WALKING. TECHNIQUE: Three (3) view of the right hip COMPARISON: No relevant prior. FINDINGS: No fractures, dislocations, or subluxations. No other osseous abnormalities. Soft tissues are unremarkable. RAD/HIP, UNI W/ Pelvis 2-3 Views IMPRESSION: No osseous abnormalities. Reading Location: [facility]
== END | disposition home or self-care (01) ==
LOC: RAD 07:39
PROVIDERS: PCP Internal Medicine; Referring Provider Internal Medicine; Visit Provider Internal Medicine
DX: R10.31 Right lower quadrant pain (principal)
CPT/HCPCS: 73502

== ENCOUNTER 2024-09-29 08:00 | Outpatient (RCR) | payer MEDICARE, SELFPAY ==
--- NOTE | 2024-09-16 13:30 | HP.PTEVAL ---
Patient's Visit Information Visit Information Visit Information: ANDRÉS GUEVARA is a 74 year old M referred to Physical Therapy by EVE Saucedo with a diagnosis of STRAIN FASCIA/TENDIN/MUSCJKE POSTERERIOR GROUP RIGHT THIGH. Date of Evaluation: 09/16/24 Physical Therapist: Yuniel Banda, PT, Cert MDT, OCS Visit Plan Frequency: 2-3x /Week Duration: 6 Weeks Plan: PT INTERVENTIONS MANUAL THERAPY HAMSTRINGS ( STM) ,MODALITIES ,PROGRESS TO GRADUALLY FLEXABILITY , GRADUALLY STRENGTHENING ECCENTRICS HAMSTRINGS AND FUNCTIONAL STRENGTHENING . Subjective Subjective: This 74 y/o male presents to physical therapy with right hamstrings . Patient September 08 ,playing pickleball pulled hamstrings. Patient has discomfort. Next day symptoms was not getting better. Noticed pain with extended walking. Location posterior knee hamstrings. Patient seen did x-rays -. No MRI. No medication for pain. Try voltaren gel. Aggravating factors driving , some pain with squatting,,sitting chair. Alleviating factors ice. Denies paresthesia/ting in feet . Patient is active walking 3-4 times,gardening. Patient has bruising distal hamstring. Patient occasional gets occasional sharp pain otherwise dull ache. Patient condition affects housework and gardening.Goals to decrease pain and return to prior level function SOCIAL: VOACTION: professor and retired Pain Right Lower Extremity: Pain Intensity (Out of 10): 2 Pain Intensity Range: 2 and 7 Objective Objective: POSTURE: WFL GAIT: reciprocal pattern NEURO: c/o paresthesia feet due to neuropathy PALPATION: mid muscle belly tenderness of hamstrings OBSERVATION: note ecchymosis distal hamstrings FLEXABILITY: hamstrings mod/severe tight AROM : hip/knee WFL MMT: quads 4/5 ,hip flexion /abduction 4/5 ,( peak force ) hamstrings 19.2 Balance/Special Test Scores Lower Extremity Functional Score: 34 Goals Goal 1:: Patient to be I with HEP for hamstrings Goal Time Frame: 4-6 Weeks Goal 2:: Patient to improve peak force hamstrings by 5-10 # to improve function and ADL's Goal Time Frame: 4-6 Weeks Goal 3:: Patient to improve flexibility hamstrings by to min/mod tight to improve function and stairs Goal Time Frame: 4-6 Weeks Goal 4:: Patient to improve LFES score by 5 points to improve function and QOL Goal Time Frame: 4-6 Weeks Goal 5:: Patient to demonstrate 50% improvement decrease improve function ADLS Goal Time Frame: 4-6 Weeks Rehabilitation Potential Physical Therapy Diagnosis: Patient pull hamstrings playing pickleball caused pain and bruising with tight hamstrings , weakness impairs general activity and housework thus benefit from skilled PT Rehabilitation Potential: Good Anticipated Interventions Patient/Client Instruction: Educate patient on: Condition and Plan of Care For the Purpose of:: To decrease pain, To improve nutrient delivery to tissue, To improve muscle performance and motor function, To improve ability to perform ADL's, To increase tolerance to activity/condition/position, To improve ability of physical actions for home/community/work/leisure, To improve health of tissue, To decrease soft tissue restriction, To increase flexibility/ROM, To improve endurance and To improve balance Therapeutic Exercise to Include: Strength training, Power training, Endurance training, Balance training, Flexibilty training and Active ROM For the Purpose of:: To decrease pain, To increase ROM, To improve muscle performance and motor function, To improve ability to perform ADL's, To increase tolerance to activity/condition/position, To improve ability of physical actions for home/community/work/leisure, To improve health of tissue, To decrease soft tissue restriction, To increase flexibility/ROM, To improve endurance and To improve balance Manual Therapy Techniques to Include: Soft tissue mobilization Comment: HAMSTRINGS For the Purpose of:: To decrease pain, To decrease swelling/inflammation, To increase ROM, To improve nutrient delivery to tissue, To increase oxygenation perfusion, To improve health of tissue, To decrease soft tissue restriction, To increase flexibility/ROM and To improve tolerance to ADL's TENS: Yes IF ES: Yes Cryotherapy (ice pack, ice massage): Yes Thermo therapy (hot pack): Yes Ultrasound (thermal/non thermal): Yes For the Purpose of:: To decrease pain, To increase ROM, To improve nutrient delivery to tissue, To increase oxygenation perfusion, To improve health of tissue and To decrease soft tissue restriction Text: Thank you for the opportunity to evaluate your patient. For Medicare and Medicare HMO plans, please review the plan of care and approve it. It will need to be FAXED BACK to us at [phone] for Medicare purposes. For Medicare only, by signing this I certify the plan of care. Please let me know if there are questions or concerns regarding this plan of care. Physician Signature: Date:
== END 2024-09-29 19:00 | disposition home or self-care (01) ==
LOC: PT 08:00
PROVIDERS: PCP Internal Medicine; Referring Provider Physician Assistant Surgical; Visit Provider Physician Assistant Surgical
DX: S76.311D Strain of muscle, fascia and tendon of the posterior muscle group at thigh level, right thigh, subsequent encounter (principal); M79.604 Pain in right leg
CPT/HCPCS: 97110; 97140; 97162

== ENCOUNTER → 2024-11-21 | Outpatient (CLI) | payer MEDICARE, SELFPAY ==
[2024-11-21 09:09] LABS: Hematocrit 38.2 % (40-54); Hemoglobin 13.0 g/dL (13.0-16.5); Immature Granulocytes Count 0.020 X10^3/uL (0.0-0.0); Mean Corp Hgb Conc 34.0 g/dL (32-36); Mean Corpuscular Volume 94.3 fL (80-94); Mean Platelet Vol. 8.3 fl (6.2-12.0); NRBC Flagged by Analyzer 0 % (0-5); Platelet Count 283 K/mm3 (150-450); RBC Distribution Width CV 13.3 % (11.6-14.6); RBC Distribution Width SD 46.5 fl (35.1-43.9); Red Blood Count 4.05 M/mm3 (4.6-6.2); White Blood Count 7.7 K/mm3 (4.4-11.0)
[2024-11-21 09:26] LABS: Creatinine, Urine (random) 64.60 mg/dL (39.00-259.00); Microalbumin,Random Urine < 12.0 mg/L (<20 mg/L)
[2024-11-21 10:05] LABS: AST(SGOT) 21 U/L (<=37); Alanine Aminotransfer ALT/SGPT 17 U/L (<=46); Albumin, Serum 4.3 g/dL (3.4-4.8); Alkaline Phosphatase 71 U/L (40-129); Anion Gap 22 (5-15); BUN 20 mg/dL (4-19); BUN/Creat Ratio 13.4 RATIO (10-20); Calcium,Total 8.5 mg/dL (7.6-11.0); Carbon Dioxide 11.7 mmol/L (21.0-32.0); Chloride 107 mmol/L (98-108); Globulin 2.7 g/dL (2.2-4.2); Glucose 71 mg/dL (70-99); Potassium 5.0 mmol/L (3.3-5.1); Vitamin D,25 Hydroxy 50.0 ng/mL (30-100)
== END | disposition home or self-care (01) ==
LOC: LAB 08:35
PROVIDERS: PCP Internal Medicine; Referring Provider Internal Medicine; Visit Provider Internal Medicine
DX: I12.9 Hypertensive chronic kidney disease with stage 1 through stage 4 chronic kidney disease, or unspecified chronic kidney disease (principal); C61 Malignant neoplasm of prostate; N18.30 Chronic kidney disease, stage 3 unspecified; E78.00 Pure hypercholesterolemia, unspecified
CPT/HCPCS: 36415; 80053; 82043; 82306; 82570; 85025

== ENCOUNTER → 2024-12-02 | Outpatient (CLI) | payer MEDICARE, SELFPAY ==
[2024-12-02 11:51] LABS: AST(SGOT) 23 U/L (<=37); Alanine Aminotransfer ALT/SGPT 18 U/L (<=46); Albumin, Serum 4.3 g/dL (3.4-4.8); Alkaline Phosphatase 84 U/L (40-129); Bilirubin, Direct 0.26 mg/dL (0.00-0.30); Cholesterol 158 mg/dL (<=200); Globulin 2.8 g/dL (2.2-4.2); Low Density Lipoprotein Calc. 77 mg/dL; Triglycerides 151 mg/dL; Very Low Density Lipoprotein 30 mg/dL (5-40); cholesterol:hdl ratio screen 3.11
== END | disposition home or self-care (01) ==
LOC: LAB 09:33
PROVIDERS: PCP Internal Medicine; Referring Provider Internal Medicine Cardiovascular Disease; Visit Provider Internal Medicine Cardiovascular Disease
DX: E78.5 Hyperlipidemia, unspecified (principal)
CPT/HCPCS: 36415; 80061; 80076

== ENCOUNTER → 2025-01-02 | Outpatient (CLI) | payer MEDICARE, SELFPAY ==
--- NOTE | 2025-01-02 12:54 | ECHOD_ITS ---
Reason For Study Reason For Study: CAD/ASHD Procedure This was a 2D Doppler, Color Flow transthoracic echocardiogram. Exam performed in department. Left Ventricle Normal LV size. Left ventricular systolic function is normal. The left ventricular ejection fraction is 65 %. Stage 1 diastolic dysfunction. No regional wall motion abnormalities noted. Right Ventricle Normal RV size. Normal systolic function. Atria Normal left atrium. Normal right atrium. Mitral Valve Normal mitral valve. Tricuspid Valve Normal tricuspid valve. Mild (1+) tricuspid valve insufficiency. Aortic Valve Trisinus/trileaflet aortic valve. Pulmonic Valve Normal pulmonic valve. Great Vessels Normal aortic root. The pulmonary artery is normal size. Inferior vena cava collapse with respiration. Pericardium/Pleural No pericardial effusion. MMode/2D Measurements & Calculations LVIDd: 4.8 cm IVSd: 0.91 cm Ao root diam: 2.9 cm LVIDs: 2.9 cm LVPWd: 0.91 cm RVDd: 3.3 cm FS: 38.6 % asc Aorta Diam: 3.5 cm LAV(MOD-bp): 55.9 ml LVAd ap4: 30.1 cm2 LAV(MOD-bp) Indexed: 29.1 ml/m2 LVLd ap4: 8.0 cm LAV(MOD-sp2): 50.1 ml EDV(MOD-sp4): 93.2 ml LAV(MOD-sp4): 56.5 ml EDV(sp4-el): 96.2 ml LVAs ap4: 16.0 cm2 LVLs ap4: 6.8 cm ESV(MOD-sp4): 32.3 ml ESV(sp4-el): 31.9 ml EF(MOD-sp4): 65.4 % EF(sp4-el): 66.8 % LVAd ap2: 30.3 cm2 SV(MOD-sp4): 60.9 ml SV(MOD-sp2): 58.0 ml LVLd ap2: 8.7 cm SI(MOD-sp4): 31.7 ml/m2 SI(MOD-sp2): 30.1 ml/m2 EDV(MOD-sp2): 88.9 ml EDV(sp2-el): 90.1 ml LVAs ap2: 15.7 cm2 LVLs ap2: 6.7 cm ESV(MOD-sp2): 30.9 ml ESV(sp2-el): 31.2 ml EF(MOD-sp2): 65.2 % SV(sp4-el): 64.3 ml LA dimension(2D): 4.0 cm LA A4 area: 18.9 cm2 RA A4 area: 17.8 cm2 TAPSE: 2.1 cm Time Measurements MV dec time: 0.25 sec Doppler Measurements & Calculations MV E max moise: 64.6 cm/sec Lat Peak E' Moise: 11.0 cm/sec Med Peak E' Moise: 9.7 cm/sec MV A max moise: 73.7 cm/sec E/E' lat: 5.8 E/E' med: 6.7 MV E/A: 0.88 MV V2 max: 82.5 cm/sec MV P1/2t max moise: 66.3 cm/sec Ao V2 max: 131.3 cm/sec MV max P.7 mmHg MV P1/2t: 76.4 msec Ao max P.9 mmHg MV V2 mean: 39.8 cm/sec Ao V2 mean: 85.6 cm/sec MV mean P.76 mmHg MV dec slope: 254.1 cm/sec2 Ao mean P.5 mmHg MV V2 VTI: 24.4 cm MVA(P1/2t): 2.9 cm2 Ao V2 VTI: 29.8 cm AV (velocity ratio): 0.88 LV V1 max: 125.4 cm/sec PA V2 max: 95.3 cm/sec TR max moise: 189.2 cm/sec LV V1 max P.3 mmHg TR max P.3 mmHg LV V1 mean P.4 mmHg LV V1 mean: 86.4 cm/sec LV V1 VTI: 26.2 cm ECHO/Echo Complete Interpretation Summary Left ventricular systolic function is normal. The left ventricular ejection fraction is 65 %. Stage 1 diastolic dysfunction. Normal LV size. Ordering Physician: August^Himanshu^^^ Referring Physician: Abel Cunningham Performed By: Adry Avery, EITAN, RVT
== END | disposition home or self-care (01) ==
PROVIDERS: PCP Internal Medicine; Referring Provider Internal Medicine Cardiovascular Disease; Visit Provider Internal Medicine Cardiovascular Disease
DX: I34.0 Nonrheumatic mitral (valve) insufficiency (principal); I25.10 Atherosclerotic heart disease of native coronary artery without angina pectoris
CPT/HCPCS: 93306

== ENCOUNTER → 2025-01-23 | Outpatient (CLI) | payer MEDICARE, SELFPAY ==
--- OUTSIDE RECORDS SUMMARY | 2025-01-23 07:13 | XMS RPT_ITS | CCD ---
Author Organization [facility] Care Team Providers Care Supervisor Intelligence Analyst Name Role Phone SIMON Garrison, Tiffanie Garay Unavailable Unavailabl e TavallAbel villarreal Attending Unavailable TavallaeAbel bustos Primary Care Unavailable TavallaeeAbel Attending Unavailable TavallaeAbel bustos Primary Care Unavailable TavallaeeAbel Admitting Unavailable TavallaeAbel bustos Attending Unavailable TavallAbel villarreal Primary Care Unavailable TavallaeeAbel Attending Unavailable TavallaeeAbel Primary Care Unavailable TavallaeeAbel Attending Unavailable TavallaeeMarcelloAbel M Primary Care Unavailable Bassett, Vanessa Unavailable Unavailable Tavallaee, Abel Unavailable Unavailable Tavallaee, Abel M Unavailable Unavailable Tavallaee, Abel M Unavailable [phone] Abel Madrigal Primary Care Provider Dr. Abel Madrigal Referring Provider Dr. Himanshu Koch Attending Provider Abel Madrigal Primary Care Unav ailable TavallAbel villarreal Attending Unav ailable TavallAbel villarreal Referring Unav ailable TavAbel aparicio Primary Care Unav ailable Nataliaallaee, Abel Monazzam Attending Unav ailable Tavallaee, Abel Garzaazzam Referring Unav ailable Tavallaee, Abel Garzaazzajadiel Primary Care Unav ailable Tavallaee, Abel Monazzam Attending Unav ailable Tavallaee, Abel Monazzam Referring Unav ailable Tavallaee, Abel Monazzam Attending Unav ailable Tavallaee, Abel Monazzam Referring Unav ailable Tavallaee, Abel Garzaazzam Primary Care Unav ailable Tavallaee, Abel Monazzam Attending Unav ailable Tavallaee, Abel Monazzam Referring Unav ailable Tavallaee, Abel Garzaazzam Primary Care Unav ailable Tavallaee, Abel Garzaazzam Attending Unav ailable Tavallaee, Abel Garzaazzam Referring Unav ailable Tavallaee, Abel Espitiazam Primary Care Unav ailable Tavalllm, Dr. Roman Primary Care Provider Dr. Abel Madrigal Referring Provider Dr. Himanshu Koch Attending Provider Dr. Jalil Yun Attending Provider Dr. Rodriguez Bridges Referring Provider [phone] Abel Madrigal Primary Care Provider Abel Madrigal MD Primary Care Provider [phone] Abel Madrigal MD Unavailable Dr. Abel Madrigal Primary Care Provider Dr. Abel Madrigal Referring Provider EVE Viveros Attending Provider Dr. Abel Madrigal Primary Care Provider Dr. Abel Madrigal Referring Provider Tosha PRADO, PA Phyllis Garay Attending Provider Abel Madrigal MD Unavailable Dr. Abel Madrigal Primary Care Provider Dr. Fatmata Brower Emergency Provider Dr. Rufus Lane Other Provider Dr. Bubba Youngblood Admit Provider Dr. Bubba Youngblood Attending Provider Dr. Bubba Youngblood Other Provider Dr. Wenceslao Marquez Other Provider Dr. Teo Pelaez Other Provider Dr. Stephane Padilla Other Provider Dr. Gil Disla Other Provider [phone] Dr. Sruthi Billings Other Provider Dr. Dennys Melgoza Other Provider Dr. Lori Gomes Other Provider Dr. Maynor Reaves Other Provider Unavailable Dr. Patricio Amador Other Provider Dr. Roger Feng Other Provider Dr. Oscar Calix Other Provider Dr. Carlos Burgos Other Provider [phone] Dr. Mau Acharya Other Provider [phone] Teo Pleaez Attending Provider [phone] Dr. Wesley Martinez Other Provider Dr. Wesley Martinez Attending Provider Dr. Wesley Uriostegui Attending Provider Sky RN, Amarilis Unavailable Unavailable Dr. Abel Madrigal Primary Care Provider Dr. Fatmata Brower Emergency Provider Dr. Rufus Lane Other Provider Ford, Dr. Mac Admit Provider Dr. Bubba Youngblood Attending Provider Ford, Dr. Mac Other Provider Dr. Wenceslao Marquez Other Provider [phone] Teo Pelaez Other Provider Dr. Stephane Padilla Other Provider Dr. Gil Disla Other Provider Dr. Sruthi Billinsg Other Provider [phone] Dr. Dennys Melgoza Other Provider Dr. Lori Gomes Other Provider Dr. Maynor Reaves Other Provider Unavailable Dr. Patricio Amador Other Provider [phone] Dr. Roger Fegn Other Provider Dr. Oscar Calix Other Provider Dr. Carlos Burgos Other Provider [phone] Dr. Mau Acharya Other Provider [phone] Teo Pelaez Attending Provider Dr. Wesley Martinez Referring Provider Dr. Wesley Martinez Other Provider Dr. Wesley Martinez Attending Provider Dr. Wesley Uriostegui Attending Provider Dr. Jeremy Melo Referring Provider Unavail able Marisa MEDINA, Dr. Roman Primary Care Provider Dr. Abel Madrigal MD Referring Provider [phone] Phyllis Viveros Attending Provider Phyllis Viveros Referring Provider Phyllis Viveros Other Provider [phone] MEDINA, Dr. Downs Attending Provider [phone] Dr. Abel Madrigal MD Attending Provider Abel Madrigal MD Primary Care Provider Abel Madrigal MD Unavailable Marisa MEDINA, Dr. Roman Primary Care Physician Lynda Macedo Attending Physician Lynda Macedo Referring Provider Dr. Abel Madrigal MD Attending Physician Dr. Abel Madrigal MD Referring Provider Dr. Himanshu Koch MD Attending Physician TAVALLLM ABEL M Attending Unavailable TAVALLAEEMEABEL Jadiel Primary Care Unavailable TAVALLHOLLIEABEL Attending Unavailable ABEL MADRIGAL Primary Care Unavailable Dr. Abel Madrigal MD Primary Care Physician Lynda Macedo Attending Physician Lynda Macedo Referring Provider Dr. Abel Madrigal MD Attending Physician Dr. Abel Madrigal MD Referring Provider Dr. Himanshu Koch MD Attending Physician Dr. Himanshu Koch MD Referring Provider Tavalllm, Abel Primary Care Unavailable Tavallaee, Abel Attending Unavailable TavallaeeAbel Referring Unavailable Tavallaee, Abel Primary Care Unavailable Tavallaee, Abel Attending Unavailable Tavallaee, Abel Referring Unavailable August, Himanshu Attending Unavailable August, [place] Referring Unavailable Tavallaee, Abel Primary Care Unavailable August, Himanshu Attending Unavailable August, [place] Referring Unavailable Tavallaee, Abel Primary Care Unavailable Tavallaee, Abel Primary Care Unavailable Colbert, Theodora Attending Unavailable Colbert, Theodora Referring Unavailable Phyllis Viveros Attending Unavail able Phyllis Viveros Referring Unavail able Tavallaee, Abel Primary Care Unavailable Tavallaee, Abel Primary Care Unavailable Lynda Arguello Attending Unavailable Lynda Arguello Referring Unavailable Phyllis Viveros Attending Unavail able Tavallaee, Abel Primary Care Unavailable Tavallaee, Abel Referring Unavailable August, Himanshu Attending Unavailable Tavallaee, Abel Referring Unavailable Tavallaee, Abel Primary Care Unavailable Phyllis Viveros Consulting Unavail able Phyllis Viveros Referring Unavail able Tavallaee, Abel Primary Care Unavailable August, Himanshu Attending Unavailable Tavallaee, Abel Primary Care Unavailable Tavallaee, Abel Attending Unavailable Tavallaee, Abel Referring Unavailable Allergies Allergy Classification Reported Allergen(s) Allergy Type Date of Onset Reaction(s) Facility (1 source) No Known Medication Allergies; Translations: [No Known Medication Allergies] Propensity to adverse reactions to drug (disorder) [facility] Repository Medications Current Medications Medication Drug Class(es) Dates Sig (Normalized) Sig (Original) amLODIPine 5 mg oral tablet (20 sources) Dihydropyridine Calcium Channel John Start: 06-16-2024 End: 06-16-2025 take 1 tablet by mouth twice daily Start: 10-18-2020 End: 09-22-2021 take 2.5 mg by mouth once daily in the morning, then take 1 tablet by mouth once daily in the evening Amlodipine 5 mg tablet Discontinued 5 mg PO .COMPLEX October 18, 2020 12:38pm September 22, 2021 9:10am 5 mg PO; 2.5 mg qam, 5mg qpm Start: 05-10-2020 End: 03-15-2021 take 5 mg by mouth twice daily Amlodipine 10 mg tablet Discontinued 5 mg PO TWICE A DAY May 10, 2020 12:23pm May 10, 2020 12:24pm Start: 05-10-2020 End: 05-10-2020 take 5 mg by mouth twice daily Amlodipine Discontinued 5 MG PO TWICE A DAY May 10, 2020 1:23pm May 10, 2020 1:24pm Start: 04-22-2020 End: 05-10-2020 take 5 mg by mouth once daily Amlodipine 10 mg tablet Discontinued 5 mg PO DAILY April 22, 2020 12:00am May 10, 2020 12:23pm Start: 04-22-2020 End: 05-10-2020 take 5 mg by mouth once daily Amlodipine Discontinued 5 MG PO DAILY April 22, 2020 1:00am May 10, 2020 1:23pm Start: 07-01-2019 End: 10-07-2019 take 2.5 mg by mouth at bedtime Amlodipine 10 mg table t Discontinued 2.5 mg PO AT BEDTIME July 01, 2019 12:49pm October 07, 2019 12:53pm Start: 07-01-2019 End: 10-07-2019 take 2.5 mg by mouth at bedtime Amlodipine Discontinue d 2.5 MG PO AT BEDTIME July 01, 2019 1:49pm October 07, 2019 1:53pm Start: 06-25-2019 End: 10-18-2020 take 1 tablet by mouth twice daily Amlodipine 5 mg tablet Discontinued 5 mg PO TWICE A DAY 180 3 May 10, 2020 12:24pm October 18, 2020 12:12pm Start: 06-25-2019 End: 04-22-2020 take 1 tablet by mouth once daily Amlodipine 2.5 mg tablet Discontinued 2.5 mg PO DAILY October 06, 2019 11:00pm April 22, 2020 8:37am Start: 06-25-2019 End: 12-02-2024 take 1 tablet by mouth twice daily Amlodipine 2.5 mg tablet Discontinued 2.5 mg PO TWICE A DAY 180 September 26, 2023 6:58am December 02, 2024 8:01am Start: 06-25-2019 take 0.25 tablet by mouth once daily amLODIPine Besylate 10 MG Oral Tablet TAKE 0.25 TABLET Daily Quantity: 30 Refills: 0 Tavallaee MD, Abel Start : 25-Jun-2019 Active Start: 05-19-2019 End: 07-01-2019 take 1 tablet by mouth at bedtime Amlodipine 10 mg tablet Discontinued 10 mg PO AT BEDTIME 90 3 May 19, 2019 9:58am July 01, 2019 12:52pm Start: 09-18-2018 End: 05-19-2019 Amlodipine 10 MG tablet Discontinued 1 {tbl} PO AT BEDTIME September 17, 2018 11:00pm May 19, 2019 9:59am Start: 09-18-2018 End: 05-19-2019 take 1 tablet by mouth at bedtime Amlodipine Discontinued 1 TABLET PO AT BEDTIME September 18, 2018 12:00am May 19, 2019 10:59am Start: 05-04-2017 End: 05-22-2018 take 1 tablet by mouth at bedtime Amlodipine 10 mg tablet Discontinued 10 mg PO AT BEDTIME 90 3 August 16, 2017 1:28pm May 22, 2018 3:53pm Start: 04-19-2017 End: 04-25-2017 take 1 tablet by mouth once daily Amlodipine 5 mg tablet Discontinued 5 mg PO daily April 19, 2017 12:00am April 25, 2017 12:51pm Start: 04-06-2017 End: 04-12-2017 take 1 tablet by mouth once daily Amlodipine 10 mg tablet Discontinued 10 mg PO daily 25 01April 06, 2017 12:00am April 12, 2017 4:55pm Start: 03-28-2017 End: 04-06-2017 take 1 tablet by mouth once daily Amlodipine 5 mg tablet Discontinued 5 mg PO daily 25 01March 28, 2017 12:00am April 06, 2017 3:52pm calcium ascorbate 500 mg oral tablet (16 sources) Start: 07-01-2019 take 1 tablet by mouth once daily ergocalciferol 1.25 mg oral capsule (20 sources) Provitamin D2 Compound Start: 05-06-2024 take 1 capsule by mouth once, then take 1 capsule by mouth every other week ergocalciferol (Vitamin D-2) 1250 mcg (50,000 units) capsule Indications: Vitamin D deficiency Take 1 capsule (50,000 Units) by mouth every 14 (fourteen) days. TAKE 1 CAPSULE EVERY 2 WEEKS 6 capsule 3 05/06/2024 Active Start: 05-28-2023 take 1 capsule by mo uth once, then take 1 capsule by mouth every other week ergocalciferol (Vitamin D-2) 1.25 MG (35023 UT) capsule Indications: Vitamin D deficiency Take 1 capsule (50,000 Units) by mouth every 14 (fourteen) days. TAKE 1 CAPSULE EVERY 2 WEEKS 6 capsule 3 05/28/2023 Active Start: 05-28-2022 End: 05-01-2023 take 1 capsule by mouth once, then take 1 capsule by mouth every other week ergocalciferol (Vitamin D-2) 1.25 MG (31372 UT) capsule Indications: Vitamin D deficiency Take 1 capsule (50,000 Units) by mouth every 14 (fourteen) days. TAKE 1 CAPSULE EVERY 2 WEEKS 6 capsule 3 05/01/2023 Active Start: 10-07-2019 Start: 04-11-2019 End: 10-07-2019 Ergocalciferol (Vitamin D2) (Vitamin D2) 1,250 mcg (50,000 unit) capsule Discontinued 1250 ug PO EVERY WEEK April 11, 2019 12:00am October 07, 2019 12:56pm famotidine 20 mg oral tablet (20 sources) Histamine-2 Receptor Antagonist Start: 04-03-2019 End: 05-01-2023 famotidine (Pepcid) 20 mg tablet Indications: Gastroesophageal reflux disease, unspecified whether esophagitis present TAKE 1 TABLET ONCE DAILY 90 tablet 3 07/28/2024 Active ketoconazole 20 mg/ml medicated shampoo (3 sources) Azole Antifungal Start: 12-17-2023 ketoconazole (NIZOral) 2 % shampoo Indications: Seborrheic dermatitis Apply topically 2 times a week. Shampoo daily, leave on for 5-10 minutes, then rinse. 120 mL 11 12/17/2023 Active Pcnjacedh-O4-Gos90 -Algal Oil (Metanx (Algal Oil)) 3 mg-35 mg-2 mg -90.314 mg capsule (16 sources) Start: 10-18-2020 take 1 capsule by mouth twice daily Klpjmbkfm-J1-Zdb98-Al gal Oil (Metanx (Algal Oil)) 3 mg-35 mg-2 mg -90.314 mg capsule Active 1 CAP PO TWICE A DAY October 18, 2020 1:11pm Start: 10-18-2020 End: 09-27-2021 take 1 capsule by mouth twice daily Enypirwct-W7-Bac64-Algal Oil (Metanx (Algal Oil)) 3 mg-35 mg-2 mg -90.314 mg capsule Discontinued 1 NMA PO TWICE A DAY October 17, 2020 11:00pm September 27, 2021 1:08pm Start: 10-18-2020 End: 09-27-2021 take 1 capsule by mouth twice daily Czsplpbyz-Z1-Vak94-Algal Oil (Metanx (Algal Oil)) 3 mg-35 mg-2 mg -90.314 mg capsule Discontinued 1 NMA PO TWICE A DAY October 18, 2020 12:00am September 27, 2021 2:08pm Start: 10-18-2020 End: 09-27-2021 take 1 capsule by mouth twice daily Xdfkyibok-L1-Uvs98-Algal Oil (Metanx (Algal Oil)) 3 mg-35 mg-2 mg -90.314 mg capsule Discontinued 1 CAP PO TWICE A DAY October 17, 2020 11:00pm September 27, 2021 1:08pm Start: 10-18-2020 End: 09-27-2021 take 1 capsule by mouth twice daily Wevvjpacd-I3-Vhb23-Algal Oil (Metanx (Algal Oil)) 3 mg-35 mg-2 mg -90.314 mg capsule Discontinued 1 CAP PO TWICE A DAY October 18, 2020 12:00am September 27, 2021 2:08pm losartan potassium 50 mg oral tablet (20 sources) Angiotensin 2 Receptor John Start: 04-13-2024 End: 04-18-2024 take 1 tablet by mouth once daily Start: 05-01-2023 End: 11-01-2024 take 1 tablet by mouth once daily Losartan 25 mg tablet Discontinued 25 mg PO DAILY October 02, 2023 11:00pm April 13, 2024 8:11am Start: 07-07-2019 End: 04-22-2020 Losartan 100 MG tablet Disco ntinued 1 {tbl} PO DAILY July 07, 2019 12:24pm April 22, 2020 4:17pm htn Start: 09-18-2018 End: 05-05-2019 Losartan 100 MG tablet Disco ntinued 1 {tbl} PO DAILY September 17, 2018 11:00pm May 05, 2019 8:38am Start: 02-13-2017 End: 04-12-2017 take 1 tablet by mouth once daily Losartan 50 mg tablet Discontinued 50 mg PO daily February 13, 2017 12:00am April 12, 2017 4:55pm Start: 05-16-2016 End: 10-03-2023 take 1 tablet by mouth once daily Losartan 100 mg tablet Discontinued 100 mg PO DAILY 90 4 April 25, 2022 4:40pm October 03, 2023 7:36am htn On Hold: until you see your primary care physician and have labs that show your kidney function improving. Losartan Potarturoi um 100 MG Oral Tablet Quantity: 0 Refills: 0 Ordered: 29-Nov-2020 DO Active multivitamin tablet (8 sources) take 1 tablet by perry th once daily multivitamin tablet Take 1 tablet by mouth once daily. Active take 1 tablet by mouth once monae y multivitamin tablet Take 1 tablet by mouth once daily. 0 Active Jyvnvrkecrpy-Oujs-Efhxq Acid (Centrum Complete) 18-400 mg-mcg tablet (16 sources) Start: 07-01-2019 take 1 tablet by mouth at bedtime Efxtfpobziqd-Xklz-Ubjyf Acid (Centrum Complete) 18-400 mg-mcg tablet Active 1 TABLET PO AT BEDTIME July 01, 2019 1:52pm Start: 07-01-2019 Start: 07-01-2019 Multivitamin-I ann-Folic Acid (Centrum Complete) 18-400 mg-mcg tablet Active 1 {tbl} PO AT BEDTIME July 01, 2019 12:00am Complies with drug therapy Start: 07-01-2019 Multivitamin-I ann-Folic Acid (Centrum Complete) 18-400 mg-mcg tablet Active 1 {tbl} PO AT BEDTIME July 01, 2019 12:00am Start: 07-01-2019 take 1 tablet by mouth at bedt stefan Blzargemdnzd-Zdsh-Kfizf Acid (Centrum Complete) 18-400 mg-mcg tablet Active 1 TABLET PO AT BEDTIME June 30, 2019 11:00pm Start: 07-01-2019 take 1 tablet by mouth at bedt stefan Ishngicjleon-Ipyc-Dvvun Acid (Centrum Complete) 18-400 mg-mcg tablet Active 1 TABLET PO AT BEDTIME July 01, 2019 12:00am Potassium, Sodium Phosphates (Phos-Nak) 280-160-250 mg powder in packet (16 sources) Start: 07-01-2019 Potassium, Sod ium Phosphates (Phos-Nak) 280-160-250 mg powder in packet Active 1 PACKET PO DAILY July 01, 2019 1:50pm Start: 07-01-2019 End: 04-08-2023 Potassium, Sodium Phosphates (Phos-Nak) 280-160-250 mg powder in packet Discontinued 1 NMA PO DAILY June 30, 2019 11:00pm April 08, 2023 8:21pm supplement Start: 07-01-2019 End: 04-08-2023 Potassium, Sodium Phosphates (Phos-Nak) 280-160-250 mg powder in packet Discontinued 1 NMA PO DAILY July 01, 2019 12:00am April 08, 2023 9:21pm supplement Start: 07-01-2019 End: 04-08-2023 Potassium, Sodium Phosphates (Phos-Nak) 280-160-250 mg powder in packet Discontinued 1 NMA PO DAILY July 01, 2019 12:00am April 08, 2023 9:21pm Start: 07-01-2019 End: 04-08-2023 Potassium, Sodium Phosphates (Phos-Nak) 280-160-250 mg powder in packet Discontinued 1 PACKET PO DAILY July 01, 2019 12:00am April 08, 2023 9:21pm Start: 07-01-2019 End: 04-08-2023 Potassium, Sodium Phosphates (Phos-Nak) 280-160-250 mg powder in packet Discontinued 1 PACKET PO DAILY June 30, 2019 11:00pm April 08, 2023 8:21pm Start: 07-01-2019 Potassium, Sod ium Phosphates (Phos-Nak) 280-160-250 mg powder in packet Active 1 PACKET PO DAILY June 30, 2019 11:00pm Start: 07-01-2019 Potassium, Sod ium Phosphates (Phos-Nak) 280-160-250 mg powder in packet Active 1 PACKET PO DAILY July 01, 2019 12:00am sodium chloride 0.111 meq/ml nasal spray (6 sources) Start: 04-13-2023 Start: 04-13-2023 Sodium Chlorid e ([place] Sea Nasal) 0.65 % Aerosol,[place] Active 2 SPRAY NASAL 3 TIMES DAILY NEEDED 0 April 13, 2023 1:00am Completed/Discontinued Medications Medication Drug Class(es) Dates Sig (Normalized) Sig (Original) acetaminophen 325 mg / HYDROcodone bitartrate 5 mg oral tablet (20 sources) Opioid Agonist Start: 07-09-2019 End: 07-11-2019 Hydrocodone-Acetamino phen 1 TABLET tablet Discontinued 1 {tbl} PO EVERY 6 HOURS NEEDED as needed for Pain 5 2 0 July 09, 2019 July 09, 2019 11:00pm July 10, 2019 11:02pm Postoperative pain Other acute postprocedural pain Start: 07-09-2019 End: 07-11-2019 take 1 tablet by mouth every six hours as needed Hydrocodone-Acetaminophen Discontinued 1 TABLET PO EVERY 6 HOURS NEEDED 5 2 July 09, 2019 July 11, 2019 12:02am Start: 05-18-2017 End: 06-12-2017 Hydrocodone-Acetaminophen 1 EACH tablet Discontinued 1 NMA PO EVERY 4 HOURS NEEDED as needed for Pain 20 7 0 May 18, 2017 2:48pm June 12, 2017 2:12pm Personal history of urinary calculi Start: 05-18-2017 End: 06-12-2017 Hydrocodone-Acetaminophen Di scontinued 1 EACH PO EVERY 4 HOURS NEEDED 20 7 May 18, 2017 3:48pm June 12, 2017 3:12pm ascorbic acid 500 mg extended release oral tablet (20 sources) Vitamin C Start: 05-11-2017 End: 06-12-2017 take 1 tablet by mouth once daily Ascorbic Acid (Vitamin C) 500 MG tablet extended release Discontinued 500 mg PO DAILY May 10, 2017 11:00pm June 12, 2017 2:12pm take 1 tablet by mouth once monae y ascorbic acid (Vitamin C) 250 mg tablet Take 1 tablet (250 mg) by mouth once daily. Active aspirin 81 mg chewable tablet (20 sources) Platelet Aggregation Inhibitor, Nonsteroidal Anti-inflammatory Drug Start: 09-18-2018 End: 10-03-2023 take 1 tablet by mouth once daily Aspirin 81 MG tablet,chewable Discontinued 81 mg PO DAILY@0800 September 17, 2018 11:00pm October 03, 2023 7:36am On Hold: Until you see your primary care provider and labs show that your platelets are improved End: 05-01-2023 take 1 tablet by mouth once daily aspirin 81 mg EC tab let Take 1 tablet (81 mg) by mouth once daily. Active atorvastatin 40 mg oral tablet (20 sources) HMG-CoA Reductase Inhibitor Start: 07-01-2019 End: 08-01-2024 take 1 tablet by mouth every other day Atorvastatin 40 mg tablet Discontinued 40 mg PO .qod 45 3 August 20, 2023 1:36pm August 01, 2024 10:33am Start: 05-04-2017 End: 04-11-2019 take 1 tablet by mouth at bedtime Atorvastatin 40 mg tablet Discontinued 40 mg PO AT BEDTIME 90 3 May 22, 2018 3:53pm April 11, 2019 8:41am take 1 tablet by perry th once daily Lipitor 40 MG Oral Tablet Take 1 tablet daily Refills: 0 DO Active azithromycin 250 mg oral tablet (6 sources) Macrolide Antimicrobial Start: 06-21-2021 End: 12-12-2021 Azithromycin 250 MG Oral Tablet TAKE DIRECTED PER PACKAGE INSTRUCTIONS. Quantity: 1 Refills: 0 Ordered: 21-Jun-2021 Abel Madrigal MD Start : 21-Jun-2021 End : 12-Dec-2021 Complete Start: 02-25-2021 End: 05-30-2021 Azithromycin 250 MG Oral Tab let TAKE DIRECTED PER PACKAGE INSTRUCTIONS. Quantity: 6 Refills: 0 Ordered: 25-Feb-2021 Catherine Rojas PA-C Start : 25-Feb-2021 End : 30-May-2021 Complete breath-actuated 120 actuat beclomethasone dipropionate 0.04 mg/actuat metered dose inhaler (7 sources) Corticosteroid Start: 12-12-2021 End: 05-01-2023 beclomethasone HFA (Qvar RediHaler) 40 mcg/actuation inhaler Inhale 1 Inhalation once daily. 0 12/12/2021 05/01/2023 Discontinued (Therapy completed) Start: 12-12-2021 take 2 puff(s) by in halation once daily Qvar RediHaler 40 MCG/ACT Inhalation Aerosol Breath Activated 2 puffs daily Quantity: 1 Refills: 5 Ordered: 12-Dec-2021 Abel Madrigal MD Start : 12-Dec-2021 Active budesonide 0.125 mg/ml inhalation suspension (3 sources) Corticosteroid End: 12-15-2024 take 2 mL by mouth twice daily budesonide (Pulmicort) 0.25 mg/2 mL nebulizer solution Take 2 mL (0.25 mg) by nebulization 2 times a day. Rinse mouth with water after use to reduce aftertaste and incidence of candidiasis. Do not swallow. 12/15/2024 Discontinued (Therapy completed) clobetasol propionate 0.5 mg/ml topical foam (4 sources) Corticosteroid Start: 12-25-2023 End: 12-15-2024 apply 100 g topically twice daily clobetasol (Olux) 0.05 % topical foam Indications: Medication management Apply topically 2 times a day. 100 g 3 12/25/2023 12/15/2024 Discontinued (Med List Cleanup) Start: 12-17-2023 End: 08-13-2024 clobetasol (Temovate) 0.05 % cream Indications: Seborrheic dermatitis Apply topically 2 times a day as needed (rash). 60 g 11 12/17/2023 08/13/2024 Active clopidogrel 75 mg oral tablet (20 sources) P2Y12 Platelet Inhibitor Start: 09-18-2018 End: 05-19-2019 Clopidogrel 75 MG tablet Discontinued 1 {tbl} PO DAILY September 17, 2018 11:00pm May 19, 2019 9:59am Start: 05-15-2016 End: 12-15-2024 take 1 tablet by mouth once daily Clopidogrel 75 mg tablet Discontinued 75 mg PO DAILY 90 4 June 09, 2024 7:49am June 16, 2024 8:05am cyclobenzaprine hydrochloride 10 mg oral tablet (2 sources) Muscle Relaxant Start: 01-04-2022 End: 01-10-2022 take 1 tablet by mouth three times daily as needed Cyclobenzaprine HCl - 10 MG Oral Tablet TAKE 1 TABLET 3 TIMES DAILY NEEDED. Quantity: 15 Refills: 0 Ordered: 04-Jan-2022 Abel Madrigal MD Start : 04-Jan-2022 End : 10-Jan-2022 Complete 1 ml dexamethasone phosphate 4 mg/ml injection (1 source) Corticosteroid Start: 01-04-2022 Dexamethasone Sodium Phosphate 4 MG/ML Injection Solution INJECT 1 ML Intramuscular Quantity: 0 Refills: 0 Ordered: 04-Jan-2022 Abel Madrigal MD Start : 04-Jan-2022 Complete dicyclomine hydrochloride 10 mg oral capsule (13 sources) Anticholinergic Start: 12-08-2021 End: 04-08-2023 take 2 capsules by mouth three times daily before mealtime as needed Dicyclomine 10 MG capsule Discontinued 20 mg PO THREE TIMES DAILY BEFORE MEALS as needed for Abdominal Discomfort December 08, 2021 11:12am April 08, 2023 8:20pm Start: 12-08-2021 End: 04-08-2023 take 20 mg by mouth three times daily before mealtime Dicyclomine Discontinued 20 MG PO THREE TIMES DAILY BEFORE MEALS December 08, 2021 12:12pm April 08, 2023 9:20pm gabapentin 100 mg oral capsule (16 sources) Anti-epileptic Agent Start: 03-03-2020 End: 10-18-2020 take 1 capsule by mouth at bedtime Gabapentin (Neurontin) 100 mg capsule Discontinued 100 mg PO AT BEDTIME 30 March 03, 2020 12:00am October 18, 2020 12:11pm glycerin 2 mg/ml / hypromellose 2 mg/ml / polyethylene glycol 400 10 mg/ml ophthalmic solution (16 sources) Non-Standardized Chemical Allergen Start: 07-07-2019 End: 10-07-2019 take 15 mL into the eye(s) once daily Peg 417-Bchgzpdrgepw-Gyet robyn 15 ML drops Discontinued 1 NMA OP DAILY July 06, 2019 11:00pm October 07, 2019 12:56pm dry eyes hydrocortisone 25 mg/ml topical cream (3 sources) Corticosteroid Start: 12-11-2022 End: 12-11-2023 hydrocortisone (Anusol-HC) 2.5 % rectal cream Indications: Medication management Insert into the rectum 4 times a day as needed for hemorrhoids (rectal discomfort). Apply to affected areas 30 g 2 12/11/2022 05/01/2023 Discontinued (Therapy completed) levoFLOXacin 750 mg oral tablet (6 sources) Quinolone Antimicrobial Start: 04-13-2023 End: 10-03-2023 Levofloxacin 750 mg tablet Discontinued 750 mg PO Q48H 3 0 April 13, 2023 12:00am October 03, 2023 7:36am Metanx CAPS (3 sources) Metanx CAPS 1 bi d Quantity: 0 Refills: 0 Ordered: 29-Nov-2020 DO Active methylPREDNISolone 4 MG Oral Tablet Therapy Pack (2 sources) Start: 02-25-2021 End: 05-30-2021 methylPREDNISolone 4 MG Oral Tablet Therapy Pack as directed Quantity: 1 Refills: 0 Ordered: 25-Feb-2021 Catherine Rojas PA-C Start : 25-Feb-2021 End : 30-May-2021 Complete Start: 02-25-2021 methylPREDNISo lone 4 MG Oral Tablet Therapy Pack as directed Quantity: 1 Refills: 0 Ordered: 25-Feb-2021 Catherine Rojas PA-C Start : 25-Feb-2021 Active Multi-Vitamins Oral Tablet (2 sources) take 1 tablet by mouth once daily Multi-Vitamins Oral Tablet TAKE 1 TABLET DAILY. Refills: 0 Active Multi-Vitamins TABS (1 source) Multi-Vitamins T ABS TAKE 1 TABLET DAILY. Refills: 0 DO Active Multi-Vitamins TABS (12 sources) Multi-Vitamins T ABS TAKE 1 TABLET DAILY. Quantity: 0 Refills: 0 Ordered: 28-May-2019 DO Active Drug Treatment Unknown - unknown (1 source) No information available. omeprazole 20 mg delayed release oral capsule (16 sources) Proton Pump Inhibitor Start: 05-05-19 18 End: 08-22-19 19 take 1 capsule by mouth every other day Omeprazole 20 MG capsule Discontinued 20 mg PO EVERY OTHER DAY May 04, 2017 12:00am August 21, 2018 8:30am Phosphorus Supplement 280-160-250 MG Oral Packet (3 sources) Start: 04-03-19 20 Phosphorus Supplement 280-160-250 MG Oral Packet TAKE DIRECTED. Quantity: 30 Refills: 11 Abel Madrigal MD Start : 03-Apr-2019 Active Start: 04-03-2019 Phosphorus Sup plement 280-160-250 MG Oral Packet TAKE DIRECTED. Quantity: 30 Refills: 5 Abel Madrigal MD Start : 03-Apr-2019 Active Phosphorus Supplement 280-160-250 MG Oral Packet (12 sources) Start: 04-03-2019 Phosphorus Sup plement 280-160-250 MG Oral Packet TAKE DIRECTED. Quantity: 30 Refills: 11 Ordered: 28-Sep-2021 Abel Madrigal MD Start : 03-Apr-2019 Active Start: 04-03-2019 Phosphorus Sup plement 280-160-250 MG Oral Packet TAKE DIRECTED. Quantity: 30 Refills: 11 Ordered: 27-Sep-2020 Abel Madrigal MD Start : 03-Apr-2019 Active potassium, sodium phosphates (Phos-NaK) 280-160-250 mg packet (5 sources) Start: 09-26-2022 End: 07-03-2023 take 1 dose by mouth in the morning potassium, sodium phosphates (Phos-NaK) 280-160-250 mg packet Indications: Hypophosphatemia Take 1 packet by mouth early in the morning.. 30 each 09/26/2022 07/03/2023 Discontinued (Therapy completed) Start: 09-26-2022 take 1 dose by mouth in the morning potassium, sodium phosphates (Phos-NaK) 280-160-250 mg packet Indications: Hypophosphatemia Take 1 packet by mouth early in the morning.. 30 each 09/26/2022 Active Start: 04-03-2019 potassium, sod ium phosphates (Phos-NaK) 280-160-250 mg packet Take by mouth. 0 04/03/2019 Active predniSONE 10 mg oral tablet (6 sources) Start: 01-04-2022 End: 01-10-2022 take 1 tablet by mouth three times daily predniSONE 10 MG Oral Tablet TAKE 1 TABLET 3 TIMES DAILY. Quantity: 15 Refills: 0 Ordered: 04-Jan-2022 Abel Madrigal MD Start : 04-Jan-2022 End : 10-Jan-2022 Complete Start: 06-21-2021 End: 12-12-2021 take 1 tablet by mouth three times daily predniSONE 10 MG Oral Tablet TAKE 1 TABLET 3 TIMES DAILY. Quantity: 9 Refills: 0 Ordered: 21-Jun-2021 Abel Madrigal MD Start : 21-Jun-2021 End : 12-Dec-2021 Complete raNITIdine 75 mg oral tablet (20 sources) Histamine-2 Receptor Antagonist Start: 09-18-2018 End: 04-11-2019 Ranitidine Hcl 75 mg tablet Discontinued 1 {tbl} PO TWICE A DAY September 17, 2018 11:00pm April 11, 2019 8:41am Start: 05-04-2017 End: 08-21-2018 take 1 tablet by mouth every other day Ranitidine Hcl 150 MG tablet Discontinued 150 mg PO EVERY OTHER DAY May 04, 2017 12:00am August 21, 2018 8:30am tamsulosin hydrochloride 0.4 mg oral capsule (16 sources) alpha-Adrenergic John Start: 05-04-2017 End: 06-12-2017 take 1 capsule by mouth once daily Tamsulosin 0.4 MG capsule Discontinued 0.4 mg PO DAILY 7 0 May 04, 2017 12:00am June 12, 2017 2:13pm Vitamin C TABS (11 sources) Vitamin C TABS TAKE 1 TABLET DAILY. Quantity: 0 Refills: 0 Ordered: 29-Nov-2020 DO Active Problems Active Problems Problem Classification Problem Date Documented Date Episodic/Chronic Acute and unspecified renal failure (20 sources) Chronic renal failure; Translations: [Chronic kidney disease, Stage III (moderate)] Onset: 04-16-2022 06-12-2022 Chronic Acute and unspecified renal failure (8 sources) Acute renal failure syndrome; Translations: [Acute kidney failure, unspecified] 04-09-2023 Episodic Administrative/social admission (8 sources) Advance directive discussed with patient; Translations: [Other specified counseling] Episodic Anxiety disorders (20 sources) Mixed anxiety and depressive disorder; Translations: [Anxiety state, unspecified] Onset: 04-16-2022 04-16-2022 Chronic Cancer of prostate (20 sources) Malignant tumor of prostate; Translations: [Malignant neoplasm of prostate] Onset: 04-16-2022 10-06-2019 Chronic Chronic kidney disease (17 sources) Chronic kidney disease stage 3; Translations: [Stage 3 chronic kidney disease] 10-06-2019 Chronic Chronic kidney disease (3 sources) Chronic kidney disease; Translations: [Chronic kidney disease, stage 3 unspecified ([facility])] Onset: 04-16-2022 Coronary atherosclerosis and other heart disease (20 sources) Old myocardial infarction; Translations: [Coronary arteriosclerosis] Onset: 05-22-2015 09-26-2021 Chronic Disorders of lipid metabolism (20 sources) Hyperlipidemia; Translations: [Hyperlipidemia, unspecified] Onset: 07-03-2023 03-29-2019 Chronic Esophageal disorders (20 sources) Gastroesophageal reflux disease; Translations: [Esophageal reflux] Onset: 04-16-2022 12-16-2021 Chronic Essential hypertension (20 sources) Hypertensive disorder; Translations: [Unspecified essential hypertension] Onset: 04-16-2022 Chronic Gastritis and duodenitis (13 sources) Gastritis; Translations: [Gastritis, unspecified, without bleeding] 12-16-2021 Episodic Genitourinary symptoms and ill-defined conditions (1 source) History of urinary tract infection; Translations: [Personal history of urinary (tract) infections] 04-17-2023 Episodic Heart valve disorders (17 sources) Non-rheumatic mitral regurgitation ; Translations: [Nonrheumatic mitral (valve) insufficiency] Onset: 01-02-2025 09-18-2018 Chronic Hypertension with complications and secondary hypertension (1 source) Hypertensive chronic kidney disease with stage 1 through stage 4 chronic kidney disease, or unspecified chronic kidney disease; Translations: [Hypertensive chronic kidney disease with stage 1 through stage 4 chronic kidney disease, or unspecified chronic kidney disease] Onset: 12-16-2024 Chronic Immunity disorders (20 sources) Pulmonary sarcoidosis; Translations: [Sarcoidosis of lung] Onset: 04-16-2022 09-26-2021 Chronic Nonspecific chest pain (13 sources) Chest pain; Translations: [Chest pain, unspecified] 12-16-2021 Episodic Nutritional deficiencies (20 sources) Vitamin D deficiency; Translations: [Unspecified vitamin D deficiency] Onset: 04-16-2022 06-12-2022 Chronic Other connective tissue disease (16 sources) Inguinal pain; Translations: [Neuralgia and neuritis, unspecified] 09-26-2021 Episodic Other inflammatory condition of skin (1 source) Seborrheic dermatitis; Translations: [Seborrheic dermatitis, unspecified] 12-17-2023 Episodic Other nervous system disorders (19 sources) Peripheral nerve disease ; Translations: [Unspecified hereditary and idiopathic peripheral neuropathy] Onset: 04-16-2022 04-16-2022 Chronic Other nutritional; endocrine; and metabolic disorders (20 sources) Hypophosphatemia; 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] Onset: 04-16-2022 04-16-2022 Chronic Residual codes; unclassified (1 source) Bilateral lower limb edema; Translations: [Localized edema] 04-17-2023 Episodic Screening and history of mental health and substance abuse codes (8 sources) Screening - NAD; Translations: [Screening for depression] Episodic Septicemia (except in labor) (16 sources) Sepsis; Translations: [Sepsis, unspecified organism] 04-08-2023 Episodic Unclassified (1 source) No current problems or disability 03-12-2017 Unclassified (4 sources) Patient encounter status; Translations: [History of Screening PSA (prostate specific antigen)] 06-16-2024 Urinary tract infections (8 sources) Urinary tract infectious disease; Translations: [Urinary tract infection, site not specified] 04-08-2023 Episodic Viral infection (1 source) Disease caused by 2019-nCoV; Translations: [COVID-19] 03-08-2023 Episodic Past or Other Problems Problem Classification Problem Date Documented Da te Episodic/Chronic Abdominal pain (3 sources) Right inguinal pain; Translations: [Right lower quadrant pain] Onset: 06-24-2024 06-16-2024 Episodic Calculus of urinary tract (20 sources) History of calculus of kidney; Translations: [Personal history of urinary calculi] Onset: 04-16-2022 09-18-2018 Episodic Cancer of prostate (3 sources) History of malignant neoplasm of prostate; Translations: [History of malignant neoplasm of prostate] Episodic Coronary atherosclerosis and other heart disease (7 sources) Presence of coronary angioplasty implant and graft; Translations: [Percutaneous transluminal coronary angioplasty status] Onset: 05-22-2015 Episodic Deficiency and other anemia (13 sources) Anemia; Translations: [Anemia, unspecified] Onset: 04-16-2022 Resolved: 06-12-2022 06-12-2022 Episodic Immunizations and screening for infectious disease (20 sources) Patient encounter status; Translations: [Other specified vaccination] Onset: 06-18-2018 04-16-2022 Episodic Comment on above: 4.03 - [facility]; Other connective tissue disease (15 sources) Cramp; Translations: [Cramp of limb] Onset: 04-16-2022 04-16-2022 Episodic Other infections; including parasitic (20 sources) Erythema chronica migrans; Translations: [Lyme Disease] Onset: 04-16-2022 04-16-2022 Episodic Other upper respiratory infections (20 sources) Acute frontal sinusitis; Translations: [Acute frontal sinusitis] Onset: 04-16-2022 Resolved: 07-03-2023 04-16-2022 Episodic Spondylosis; intervertebral disc disorders; other back problems (20 sources) Low back pain; Translations: [Lumbago] Onset: 04-16-2022 04-16-2022 Episodic Syncope (20 sources) Near syncope; Translations: [Syncope and collapse] Onset: 04-16-2022 04-16-2022 Episodic Unclassified (8 sources) Onset: 06-12-2022 Resolved: 12-15-2024 06-12-2022 NEGATED: Highlighted row has not occurred!Residual codes; unclassified (11 sources) Disease Episodic Results Test Name Value Interpretation Reference Range Facility Bilirubin directOrdered By: Himanshu Koch on 12-02-2024 Bilirubin.direct [Mass/Vol] 0.26 mg/dL 0.00-0.30 [facility] Bilirubin, totalOrdered By: Himanshu Koch on 12-02-2024 Bilirubin [Mass/Vol] 0.59 mg/dL 0.00-1.30 [facility] Calculated very low density lipoprotein (VLDL) cholesterol measurementOrdered By: Himanshu Koch on 12-02-2024 Calculated very low density lipoprotein (VLDL) cholesterol measurement 30 mg/dL 5-40 [facility] Cardiology Visit Reporton Cardiology Visit Report [facility] [address] [place] [address]. [address] [place], [place] [address] OFFICE VISIT Date of Service: 12/02/24 MR#: [id number] Acct: [id number] Name: ANDRÉS GUEVARA Rep #: [id number] 4 : 1950 Provider: Dr. Himanshu Koch MD Age/Sex: 74/M Location: [facility] [place] Status: Signed HPI HPI History of Present Illness Details: ANDRÉS GUEVARA, is a 74 M who presents to the office today for a follow-up visit. He is a gentleman with a history of coronary artery disease status post angioplasty and stenting of the right coronary artery with moderate disease in the LAD, diagonal vessel and circumflex artery. 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 Stress test in 2019 demonstrated no evidence of ischemia after he had presented with chest pain. An echocardiogram which had also been performed a year prior to demonstrate ejection fraction of 55-60%. He was in the hospital in 03/2023 with sepsis for a kidney stone. From a cardiac standpoint, patient is doing well. He does not have any chest discomfort/heaviness/tig htness. His exercise tolerance is stable for his age. He does not have any worsening symptoms of shortness of breath. He denies any PND. He does not have any orthopnea. He does not have any symptoms of congestive heart failure. He does not have any palpitations that he is aware of. He does not have any lightheadedness or dizziness. He does not have any near-syncope or syncope. He does not have any lower extremity edema. He does not have any symptoms of claudication. Intake Vital Signs 10/03/23 08:33 03/31/24 15:25 12/02/24 08:57 Height 5 ft 10 in 5 ft 10 in 5 ft 10 in Weight: 165 lb BMI 23.6 BP 138/76 H Blood Pressure Location Lt brachial Position Sitting Respiration 16 Pulse 61 Pulse Source Monitor Intake Visit Reasons: 1 Y FU Inbound Call Center Agent Required: No Accompanied by: Self Is patient in pain?: No Allergies No Known Allergies Allergy (Verified 12/02/24 09:00) Medications ???Medication ???Instructions ???Recorded ???Confirmed ???Type famotidine 20 mg tablet (Acid 20 mg PO QHS gerd 04/11/19 5 History Innersole Maker (famotidine)) ascorbate calcium (vitamin C) 500 500 mg PO DAILY 07/01/19 12/02/24 History mg tablet multivitamin-ferrous 1 tab PO QHS 07/01/19 12/02/24 His tory fumarate-folic acid 18 mg-400 mcg tablet (Centrum Complete) ergocalciferol (vitamin D2) 1,250 1,250 mcg PO Q2W 10/07/19 5 History mcg (50,000 unit) capsule (Vitamin D2) sodium chloride 0.65 % nasal spray 2 spray NASAL TID PRN PRN NASAL 04/13/23 12/02/24 Rx aerosol (Deep Sea Nasal) DRYNESS #0 mL losartan 50 mg tablet 50 mg PO DAILY #90 tabs 04/18/24 1 Rx clopidogrel 75 mg tablet 75 mg PO DAILY #90 tabs 06/16/24 1 0/07/25 Rx atorvastatin 40 mg tablet 40 mg PO .qod #45 tabs 08/01/24 Rx amlodipine 5 mg tablet 5 mg PO BID 12/02/24 12/02/24 Hist ory Ejection fraction %: 65 Have you fallen in the past year?: Yes PFSH Medical History Myocardial infarct Neuralgia of groin Right inguinal hernia History of back problems Stage III chronic kidney disease Prostate cancer Nonrheumatic mitral (valve) insufficiency History of non-ST elevation myocardial infarction (NSTEMI) (05/22/15) Atherosclerosis of coronary artery of [place] heart without angina pectoris Essential (primary) hypertension Calculus of left kidney Sarcoidosis of lung GERD (gastroesophageal reflux disease) Hyperlipidemia Surgical History History of inguinal herniorrhaphy (07/09/19) History of colonoscopy (2011) History of prostatectomy History of cataract surgery History of coronary artery stent placement (05/22/15) History of extraction of renal calculus H/O shoulder surgery Family History Father Hypertension Social History Smoking Status: Never smoker alcohol intake: never substance use type: does not use caffeine: Yes Type: carbonated beverages Number of servings: 1 what type of physical activity do you participate in: walking and bicycling frequency: daily duration: 60-90 minutes/day seatbelt use: always do you feel safe at home: Yes ROS Const Const: Negative for fatigue, weakness, daytime sleepiness or difficulty sleeping ENT ENT: Negative for dizziness or Nosebleed/epistaxis Cardio Chest Pain: No Palpitations: No Edema: Bilateral (ankles trace at times R>L) Resp Respiratory: Negative for SOB with activity, SOB at rest, SOB orthopnea SOB lying down or Cough GI GI: Negative nausea, vomiting or hea (more content not included)... Normal [facility] LDL calc ser/plasOrdered By: Himanshu Koch on 12-02-2024 Cholesterol in LDL [Mass/Vol] 77 mg/dL [facility] Comment on above: Haefdobyup=981-480 m g/dL & Higher Zrob=205 mg/dL or greaterFriedwald Equation for LDL-C Laboratory - Chemistry and C hemistry - challengeOrdered By: Himanshu Koch on 12-02-2024 AST [Catalytic activity/Vol] 23 U/L <38 [facility] Lipid Profileon 12-02-2024 CHOL:HDL 3.11 Normal [facility] Comment on above: Performed By: #### L 500.4100, L500.3400 #### [facility] [address] [place], [address] Cholesterol [Mass/Vol] 158 mg/dL Normal <=200 [facility] Comment on above: Result Comment: Chol esterol level, Desirable <200 mg/dL Borderline high cholesterol 200-239 mg/dL High cholesterol >=240 mg/dL Recommendations of the NCEP Adult Treatment Panel for the following risk-cutoff thresholds for the [place] population. Performed By: #### L 500.4100, L500.3400 #### [facility] [address] [place], [address] Cholesterol in HDL [Mass/Vol] 51 mg/dL Normal [facility] Comment on above: Result Comment: [place] onal Cholesterol Education Program (NCEP) guidelines: <40 mg/dL: Low HDL-cholesterol (major risk factor for CHD) >= 60 mg/dL: High HDL-cholesterol (negative risk factor for CHD) HDL-cholesterol is affected by a number of factors, e.g. smoking, exercise, hormones, sex and age. Performed By: #### L 500.4100, L500.3400 #### [facility] [address] [place], [address] Cholesterol in LDL [Mass/Vol] 77 mg/dL Normal [facility] Comment on above: Result Comment: Bord udwzht=462-628 mg/dL Higher Xtjv=073 mg/dL or greater Friedwald Equation for LDL-C Performed By: #### L 500.4100, L500.3400 #### [facility] [address] [place], [address] Cholesterol in VLDL [Mass/Vol] 30 mg/dL Normal 5-40 [facility] Comment on above: Performed By: #### L 500.4100, L500.3400 #### [facility] [address] [place], [address] Triglyceride [Mass/Vol] 151 mg/dL Normal [facility] Comment on above: Result Comment: The drugs N-Acetylcysteine and Metamizole may falsely depress this assay. Normal range: <150 mg/dL Borderline High: 150-199 mg/dL High: 200-499 mg/dL Very High: >500 mg/dL Performed By: #### L 500.4100, L500.3400 #### [facility] [address] [place], [address] Liver Profileon 12-02-2024 Albumin [Mass/Vol] 4.3 g/dL Normal 3.4-4.8 [facility] Comment on above: Performed By: #### L 500.4100, L500.3400 #### [facility] [address] [place], [address] ALK PHOS 84 U/L Normal 40-129 [facility] Comment on above: Performed By: #### L 500.4100, L500.3400 #### [facility] [address] [place], [address] ALT [Catalytic activity/Vol] 18 U/L Normal <=46 [facility] Comment on above: Performed By: #### L 500.4100, L500.3400 #### [facility] [address] [place], [address] AST [Catalytic activity/Vol] 23 U/L Normal <=37 [facility] Comment on above: Performed By: #### L 500.4100, L500.3400 #### [facility] [address] [place], [address] Bilirubin [Mass/Vol] 0.59 mg/dL Normal 0.00-1.30 [facility] Comment on above: Performed By: #### L 500.4100, L500.3400 #### [facility] [address] [place], [address] Bilirubin.direct [Mass/Vol] 0.26 mg/dL Normal 0.00-0.30 [facility] Comment on above: Performed By: #### L 500.4100, L500.3400 #### [facility] [address] [place], [address] Globulin (S) [Mass/Vol] 2.8 g/dL Normal 2.2-4.2 [facility] Comment on above: Performed By: #### L 500.4100, L500.3400 #### [facility] [address] [place], [address] T PROT 7.1 g/dL Normal 5.9-8.4 [facility] Comment on above: Performed By: #### L 500.4100, L500.3400 #### [facility] [address] [place], [address] Screening total cholesterol/ high density lipoprotein (HDL) cholesterol ratioOrdered By: Himanshu Koch on 12-02-2024 Cholesterol.total/Sanam sterol in HDL [Mass ratio] 3.11 {ratio} [facility] Serum globulin measurementOr dered By: Himanshu Koch on 12-02-2024 Globulin (S) [Mass/Vol] 2.8 g/dL 2.2-4.2 [facility] Serum or plasma alanine booth otransferase (ALT) measurementOrdered By: Himanshu August on 12-02-2024 ALT [Catalytic activity/Vol] 18 U/L <47 [facility] Serum or plasma albumin kiya urement (mass/volume)Ordered By: Himanshu Koch on 12-02-2024 Albumin [Mass/Vol] 4.3 g/dL 3.4-4.8 [facility] Serum or plasma alkaline yuriy sphatase measurementOrdered By: Himanshu August on 12-02-2024 ALP [Catalytic activity/Vol] 84 U/L 40-129 [facility] Serum or plasma cholesterol in HDL measurement (mass/volume)Ordered By: Himanshu August on 12-02-2024 Cholesterol in HDL [Mass/Vol] 51 mg/dL >40 [facility] Comment on above: National Cholesterol Education Program (NCEP) guidelines:<40 mg/dL: Low HDL-cholesterol (major risk factor for CHD)>= 60 mg/dL: High HDL-cholesterol (negative risk factor for CHD)HDL-cholesterol is affected by a number of factors, e.g. smoking, exercise, hormones, sex and age. Serum or plasma cholesterol measurement (mass/volume)Ordered By: [place] August on 12-02-2024 Cholesterol [Mass/Vol] 158 mg/dL <201 [facility] Comment on above: Cholesterol level, D esirable <200 mg/dLBorderline high cholesterol 200-239 mg/dLHigh cholesterol >=240 mg/dLRecommendations of the NCEP Adult Treatment Panel for the following risk-cutoff thresholds for the [place] population. Total proteinOrdered By: Alverto Hopeori on 12-02-2024 Protein [Mass/Vol] 7.1 g/dL 5.9-8.4 [facility] Triglycerides measurementOrd ered By: Himanshu August on 12-02-2024 Triglyceride [Mass/Vol] 151 mg/dL <199 [facility] Comment on above: The drugs N-Acetylcy steine and Metamizole may falsely depress this assay. Normal range: <150 mg/dLBorderline High: 150-199 mg/dLHigh: 200-499 mg/dLVery High: >500 mg/dL Absolute lymphocyte countOrd ered By: Abel Madrigal on 11-21-2024 Lymphocytes Auto (Unsp spec) [#/Vol] 1.36 10*3/uL 0.83-4.51 [facility] Absolute neutrophil countOrd ered By: Abel Madrigal on 11-21-2024 Neutrophils (Bld) [#/Vol] 5.0 10*3/uL 2.0-7.7 [facility] Anion gap in Serum or Plasma Ordered By: Abel Madrigal on 11-21-2024 Anion gap [Moles/Vol] 22 mmol/L High 5-15 [facility] Automated lymphocyte count a s percentage of total leukocytesOrdered By: Abel Madrigal on 11-21-2024 Lymphocytes/100 WBC Auto (Unsp spec) 17.7 % Low 19-41 [facility] BUN/creatinine ratioOrdered By: Abel Madrigal on 11-21-2024 Urea nitrogen/Creatinine [Mass ratio] 13.4 mg/mg 10-20 [facility] Basophil percentageOrdered B y: Abel Madrigal on 11-21-2024 Basophils/100 WBC (Bld) 0.3 % 0-1 [facility] Bilirubin, totalOrdered By: Abel Madrigal on 11-21-2024 Bilirubin [Mass/Vol] 0.47 mg/dL 0.00-1.30 [facility] CBC W/Diff, Automatedon 10-28 Absolute Lymph 1.36 X10 3/uL Normal 0.83-4.51 [facility] Comment on above: Performed By: #### L 500.4050, L502.0250, L506.1001, L100.0100 #### [facility] [address] [place], [address] Absolute Neut 5.0 X10 3/uL Normal 2.0-7.7 [facility] Comment on above: Performed By: #### L 500.4050, L502.0250, L506.1001, L100.0100 #### [facility] [address] [place], [address] Basophils/100 WBC (Bld) 0.3 % Normal 0-1 [facility] Comment on above: Performed By: #### L 500.4050, L502.0250, L506.1001, L100.0100 #### [facility] [address] [place], [address] Eosinophils/100 WBC (Bld) 6.0 % High 0-5 [facility] Comment on above: Performed By: #### L 500.4050, L502.0250, L506.1001, L100.0100 #### [facility] [address] [place], [address] Erythrocyte distribution width (RBC) [Ratio] 13.3 % Normal 11.6-14.6 [facility] Comment on above: Performed By: #### L 500.4050, L502.0250, L506.1001, L100.0100 #### [facility] [address] [place], [address] Hematocrit (Bld) [Volume fraction] 38.2 % Low 40-54 [facility] Comment on above: Performed By: #### L 500.4050, L502.0250, L506.1001, L100.0100 #### [facility] [address] [place], [address] Hemoglobin (Bld) [Mass/Vol] 13.0 g/dL Normal 13.0-16.5 [facility] Comment on above: Performed By: #### L 500.4050, L502.0250, L506.1001, L100.0100 #### [facility] [address] [place], [address] IG% 0.300 Normal 0.0-0.9 [facility] Comment on above: Result Comment: IG% - Immature Granulocytes (promyelocytes, myelocytes and metamyelocytes) > 1% indicates that a LEFT SHIFT is Present. Performed By: #### L 500.4050, L502.0250, L506.1001, L100.0100 #### [facility] [address] [place], [address] Lymphocytes/100 WBC (Bld) 17.7 % Low 19-41 [facility] Comment on above: Performed By: #### L 500.4050, L502.0250, L506.1001, L100.0100 #### [facility] [address] [place], [address] MCH (RBC) [Entitic mass] 32.1 pg High 27.0-32.0 [facility] Comment on above: Performed By: #### L 500.4050, L502.0250, L506.1001, L100.0100 #### [facility] [address] [place], [address] MCHC (RBC) [Mass/Vol] 34.0 g/dL Normal 32-36 [facility] Comment on above: Performed By: #### L 500.4050, L502.0250, L506.1001, L100.0100 #### [facility] [address] [place], [address] MCV (RBC) [Entitic vol] 94.3 fL High 80-94 [facility] Comment on above: Performed By: #### L 500.4050, L502.0250, L506.1001, L100.0100 #### [facility] [address] [place], [address] Monocytes/100 WBC (Bld) 11.2 % High 0-10 [facility] Comment on above: Performed By: #### L 500.4050, L502.0250, L506.1001, L100.0100 #### [facility] [address] [place], [address] Neutrophils/100 WBC (Bld) 64.5 % Normal 47-70 [facility] Comment on above: Performed By: #### L 500.4050, L502.0250, L506.1001, L100.0100 #### [facility] [address] [place], [address] Nucleated RBC (Bld) [#/Vol] 0 10*3/uL Normal 0-5 [facility] Comment on above: Performed By: #### L 500.4050, L502.0250, L506.1001, L100.0100 #### [facility] [address] [place], [address] Platelet mean volume (Bld) [Entitic vol] 8.3 fL Normal 6.2-12.0 [facility] Comment on above: Performed By: #### L 500.4050, L502.0250, L506.1001, L100.0100 #### [facility] [address] [place], [address] Platelets (Bld) [#/Vol] 283 10*3/uL Normal 150-450 [facility] Comment on above: Performed By: #### L 500.4050, L502.0250, L506.1001, L100.0100 #### [facility] [address] [place], [address] RBC (Bld) [#/Vol] 4.05 10*6/uL Low 4.6-6.2 [facility] Comment on above: Performed By: #### L 500.4050, L502.0250, L506.1001, L100.0100 #### [facility] [address] [place], [address] RDW SD 46.5 fl High 35.1-43.9 [facility] Comment on above: Performed By: #### L 500.4050, L502.0250, L506.1001, L100.0100 #### [facility] [address] [place], [address] WBC (Bld) [#/Vol] 7.7 10*3/uL Normal 4.4-11.0 [facility] Comment on above: Performed By: #### L 500.4050, L502.0250, L506.1001, L100.0100 #### [facility] [address] [place], [address] Carbon dioxide, total [Moles /volume] in Central venous bloodOrdered By: Abel Madrigal on 11-21-2024 CO2 [Moles/Vol] 11.7 mmol/L Low 21.0-32.0 [facility] Chloride assayOrdered By: Me renea Madrigal on 11-21-2024 Chloride [Moles/Vol] 107 mmol/L 98-108 [facility] Comprehensive Metabolic Prof ilon 11-21-2024 Albumin [Mass/Vol] 4.3 g/dL Normal 3.4-4.8 [facility] Comment on above: Performed By: #### L 500.4050, L502.0250, L506.1001, L100.0100 ####[facility] [address] [place], [address] Albumin/Globulin [Mass ratio] 1.6 {ratio} Normal 0.9-2.4 [facility] Comment on above: Performed By: #### L 500.4050, L502.0250, L506.1001, L100.0100 ####[facility] [address] [place], [address] ALK PHOS 71 U/L Normal 40-129 [facility] Comment on above: Performed By: #### L 500.4050, L502.0250, L506.1001, L100.0100 ####[facility] [address] [place], [address] ALT [Catalytic activity/Vol] 17 U/L Normal <=46 [facility] Comment on above: Performed By: #### L 500.4050, L502.0250, L506.1001, L100.0100 ####[facility] [address], [address] AST [Catalytic activity/Vol] 21 U/L Normal <=37 [facility] Comment on above: Performed By: #### L 500.4050, L502.0250, L506.1001, L100.0100 ####[facility] [address] [place], [address] Bilirubin [Mass/Vol] 0.47 mg/dL Normal 0.00-1.30 [facility] Comment on above: Performed By: #### L 500.4050, L502.0250, L506.1001, L100.0100 ####[facility] [address] [place], [address] BUN/CRE 13.4 RATIO Normal 10-20 [facility] Comment on above: Performed By: #### L 500.4050, L502.0250, L506.1001, L100.0100 ####[facility] [address] [place], [address] Calcium [Mass/Vol] 8.5 mg/dL Normal 7.6-11.0 [facility] Comment on above: Performed By: #### L 500.4050, L502.0250, L506.1001, L100.0100 ####[facility] [address] [place], [address] Chloride [Moles/Vol] 107 mmol/L Normal 98-108 [facility] Comment on above: Performed By: #### L 500.4050, L502.0250, L506.1001, L100.0100 ####[facility] [address] [place], [address] CO2 [Moles/Vol] 11.7 mmol/L Low 21.0-32.0 [facility] Comment on above: Performed By: #### L 500.4050, L502.0250, L506.1001, L100.0100 ####[facility] [address] [place], [address] Creatinine [Mass/Vol] 1.46 mg/dL High 0.70-1.20 [facility] Comment on above: Performed By: #### L 500.4050, L502.0250, L506.1001, L100.0100 ####[facility] [address] [place], [address] GAP 22 High 5-15 [facility] Comment on above: Performed By: #### L 500.4050, L502.0250, L506.1001, L100.0100 ####[facility] [address] [place], [address] GFR/1.73 sq M.predicted among non-blacks MDRD (S/P/Bld) [Vol rate/Area] 50 mL/min/{1.73_m2} Low >60 [facility] Comment on above: Result Comment: mL/m in/1.73m2 CKD-EPI Creatinine Equation (2020) Performed By: #### L 500.4050, L502.0250, L506.1001, L100.0100 ####[facility] [address] [place], [address] Globulin (S) [Mass/Vol] 2.7 g/dL Normal 2.2-4.2 [facility] Comment on above: Performed By: #### L 500.4050, L502.0250, L506.1001, L100.0100 ####[facility] [address] [place], [address] Glucose [Mass/Vol] 71 mg/dL Normal 70-99 [facility] Comment on above: Performed By: #### L 500.4050, L502.0250, L506.1001, L100.0100 ####[facility] [address] [place], [address] Potassium [Moles/Vol] 5.0 mmol/L Normal 3.3-5.1 [facility] Comment on above: Performed By: #### L 500.4050, L502.0250, L506.1001, L100.0100 ####[facility] [address] [place], [address] Sodium [Moles/Vol] 140 mmol/L Normal 133-145 [facility] Comment on above: Performed By: #### L 500.4050, L502.0250, L506.1001, L100.0100 ####[facility] [address] [place], [address] T PROT 7.0 g/dL Normal 5.9-8.4 [facility] Comment on above: Performed By: #### L 500.4050, L502.0250, L506.1001, L100.0100 ####[facility] [address] [place], [address] Urea nitrogen [Mass/Vol] 20 mg/dL High 4-19 [facility] Comment on above: Performed By: #### L 500.4050, L502.0250, L506.1001, L100.0100 ####[facility] [address] [place], [address] Eosinophil percentageOrdered By: Abel Madrigal on 11-21-2024 Eosinophils/100 WBC (Bld) 6.0 % High 0-5 [facility] Erythrocyte distribution wid th ratioOrdered By: Abel Madrigal on 11-21-2024 Erythrocyte distribution width (RBC) [Ratio] 13.3 % 11.6-14.6 [facility] Erythrocyte distribution wid th standard deviationOrdered By: Abel Madrigal on 11-21-2024 Erythrocyte distribution width (RBC) [Ratio] 46.5 fl High 35.1-43.9 [facility] Glomerular filtration rate ( GFR) estimation/1.73 sq m using serum, plasma, or whole bOrdered By: Abel Madrigal on 11-21-2024 GFR/1.73 sq M.predicted among non-blacks MDRD (S/P/Bld) [Vol rate/Area] 50 mL/min/{1.73_m2} Low >60 [facility] Comment on above: mL/min/1.73m2 CKD-EP I Creatinine Equation (2020) Hematocrit Auto (Bld) [Volum e fraction]Ordered By: Abel Madrigal on 11-21-2024 Hematocrit (Bld) [Volume fraction] 38.2 % Low 40-54 [facility] Hemoglobin measurementOrdere d By: Abel Madrigal on 11-21-2024 Hemoglobin (Bld) [Mass/Vol] 13.0 g/dL 13.0-16.5 [facility] Immature granulocytes/100 WB C Auto (Bld)Ordered By: Abel Madrigal on 11-21-2024 Immature granulocytes/100 WBC (Bld) 0.300 % 0.0-0.9 [facility] Comment on above: IG% - Immature Granu locytes (promyelocytes, myelocytes and metamyelocytes) > 1% indicates that a LEFT SHIFT is Present. Laboratory - Chemistry and C hemistry - challengeOrdered By: Abel Madrigal on 11-21-2024 AST [Catalytic activity/Vol] 21 U/L <38 [facility] MCV (mean corpuscular volume ) determinationOrdered By: Abel Madrigal on 11-21-2024 MCV (RBC) [Entitic vol] 94.3 fL High 80-94 [facility] Mean corpuscular hemoglobin (MCH) determinationOrdered By: Abel Madrigal on 11-21-2024 MCH (RBC) [Entitic mass] 32.1 pg High 27.0-32.0 [facility] Mean corpuscular hemoglobin concentration (MCHC) determinationOrdered By: Abel Madrigal on 11-21-2024 MCHC (RBC) [Mass/Vol] 34.0 g/dL 32-36 [facility] Mean platelet volume determi nationOrdered By: Abel Sternaeakash on 11-21-2024 Platelet mean volume (Bld) [Entitic vol] 8.3 fL 6.2-12.0 [facility] Microalb:Creat Ratio,Random URon 11-21-2024 Creatinine [Mass/Vol] 64.60 mg/dL Normal 39.00-259.00 [facility] Comment on above: Performed By: #### L 500.4050, L502.0250, L506.1001, L100.0100 #### [facility] [address] [place], [address] MALB:CREAT UNABLE TO CALCULATE Normal <30 mg/g CRE [facility] Comment on above: Performed By: #### L 500.4050, L502.0250, L506.1001, L100.0100 #### [facility] [address] [place], [address] MICROALBUMIN,UR < 12.0 Normal <20 mg/L [facility] Comment on above: Performed By: #### L 500.4050, L502.0250, L506.1001, L100.0100 #### [facility] [address] [place], [address] Microalbumin/creat ratio urO rdered By: Abel Sternaeakash on 11-21-2024 Urine microalbumin/creatinine ratio measurement UNABLE TO CALCULATE mg/g CRE <30 [facility] Monocyte percentageOrdered B y: Abel Nataliaallaee on 11-21-2024 Monocytes/100 WBC (Bld) 11.2 % High 0-10 [facility] Neutrophil percentageOrdered By: Abel Tavallaee on 11-21-2024 Neutrophils/100 WBC (Bld) 64.5 % 47-70 [facility] Nucleated red blood cell per centageOrdered By: Abel Tavallaee on 11-21-2024 Nucleated RBC/100 WBC (Bld) [Ratio] 0 % 0-5 [facility] Platelet countOrdered By: Me renea Madrigal on 11-21-2024 Platelets (Bld) [#/Vol] 283 10*3/uL 150-450 [facility] Potassium measurement (mass/ volume)Ordered By: Abel Madrigal on 11-21-2024 Potassium (Unsp spec) [Mass/Vol] 5.0 mmol/L 3.3-5.1 [facility] RBC Auto (Bld) [#/Vol]Ordere d By: Abel Madrigal on 11-21-2024 RBC (Bld) [#/Vol] 4.05 10*6/uL Low 4.6-6.2 [facility] Random urine creatinine kiya urement (mass/volume)Ordered By: Abel Madrigal on 11-21-2024 Creatinine Unsp time (U) [Mass/Vol] 64.60 mg/dL 39.00-259.00 [facility] Serum creatinine measurement (mass/volume)Ordered By: Abel Madrigal on 11-21-2024 Creatinine [Mass/Vol] 1.46 mg/dL High 0.70-1.20 [facility] Serum globulin measurementOr dered By: Abel Madrigal on 11-21-2024 Globulin (S) [Mass/Vol] 2.7 g/dL 2.2-4.2 [facility] Serum glucose measurement (m ass/volume)Ordered By: Abel Madrigal on 11-21-2024 Glucose [Mass/Vol] 71 mg/dL 70-99 [facility] Serum or plasma alanine booth otransferase (ALT) measurementOrdered By: Abel Madrigal on 11-21-2024 ALT [Catalytic activity/Vol] 17 U/L <47 [facility] Serum or plasma albumin kiya urement (mass/volume)Ordered By: Abel Madrigal on 11-21-2024 Albumin [Mass/Vol] 4.3 g/dL 3.4-4.8 [facility] Serum or plasma albumin/glob ulin mass ratioOrdered By: Abel Madrigal on 11-21-2024 Albumin/Globulin [Mass ratio] 1.6 {ratio} 0.9-2.4 [facility] Serum or plasma alkaline yuriy sphatase measurementOrdered By: Abelrenea Madrigal on 11-21-2024 ALP [Catalytic activity/Vol] 71 U/L 40-129 [facility] Serum or plasma calcium kiya urement (mass/volume)Ordered By: Abelrenea Madrigal on 11-21-2024 Calcium [Mass/Vol] 8.5 mg/dL 7.6-11.0 [facility] Serum or plasma urea nitroge n measurement (mass/volume)Ordered By: Abelmathieu Madrigal on 11-21-2024 Urea nitrogen [Mass/Vol] 20 mg/dL High 4-19 [facility] Sodium levelOrdered By: [facility] mathieu Madrigal on 11-21-2024 Sodium [Moles/Vol] 140 mmol/L 133-145 [facility] Total proteinOrdered By: [facility] frank Madrigal on 11-21-2024 Protein [Mass/Vol] 7.0 g/dL 5.9-8.4 [facility] Urine albumin measurement [facility] detection limit of 20 mg/L or less (mass/volume)Ordered By: Abel Madrigal on 11-21-2024 Albumin DL <= 20 mg/L (U) [Mass/Vol] < 12.0 mg/L <20 mg/L [facility] Vitamin D,25 Hydroxyon 11-21 Vitamin D 25-OH 50.0 ng/mL Normal 30-100 [facility] Comment on above: Result Comment: Rosalinda min D Status Deficiency: <20 ng/mL (50nmol/L) Insufficiency: 20-30 ng/mL (50-75 nmol/L) Sufficiency: 30-100 ng/mL (75-250 nmol/L) Toxicity: >100 ng/mL (>250 nmol/L) Performed By: #### L 500.4050, L502.0250, L506.1001, L100.0100 ####[facility] [address] [place], [address] White blood cell (WBC) count Ordered By: Abel Madrigal on 11-21-2024 WBC (Bld) [#/Vol] 7.7 10*3/uL 4.4-11.0 [facility] Inital Evaluation (1) - PTon 09-16-2024 Inital Evaluation (1) - PT [facility] [address] [place] [address] / REHABILITATION SERVICES INITIAL EVALUATION MR#: [id number] Acct: [id number] Name: ANDRÉS GUEVARA Rep #: [id number] : 1950 74 From: Yuniel Banda PT, Cert. MD Jimenez, OCS Referring Dr.: EVE Saucedo Status: REG R Insurance: [facility] SELF PAY INSURANCE Patient's Visit Information Visit Information Visit Information: ANDRÉS GUEVARA is a 74 year old M referred to Physical Therapy by EVE Saucedo with a diagnosis of STRAIN FASCIA/TENDIN/MUSCJKE POSTERERIOR GROUP RIGHT THIGH. Date of Evaluation: 09/16/24 Physical Therapist: Yuniel Banda, PT, Cert MDT, OCS Visit Plan Frequency: 2-3x /Week Duration: 6 Weeks Plan: PT INTERVENTIONS MANUAL THERAPY HAMSTRINGS ( STM) ,MODALITIES ,PROGRESS TO GRADUALLY FLEXABILITY , GRADUALLY STRENGTHENING ECCENTRICS HAMSTRINGS AND FUNCTIONAL STRENGTHENING . Subjective Subjective: This 74 y/o male presents to physical therapy with right hamstrings . Patient September 08 ,playing pickleball pulled hamstrings. Patient has discomfort. Next day symptoms was not getting better. Noticed pain with extended walking. Location posterior knee hamstrings. Patient seen DR did x-rays -. No MRI. No medication for pain. Try voltaren gel. Aggravating factors driving , some pain with squatting,,sitting chair. Alleviating factors ice. Denies paresthesia/ting in feet . Patient is active walking 3-4 times,gardening. Patient has bruising distal hamstring. Patient occasional gets occasional sharp pain otherwise dull ache. Patient condition affects housework and gardening.Goals to decrease pain and return to prior level function SOCIAL: VOACTION: professor and retired Pain Right Lower Extremity: Pain Intensity (Out of 10): 2 Pain Intensity Range: 2 and 7 Objective Objective: POSTURE: WFL GAIT: reciprocal pattern NEURO: c/o paresthesia feet due to neuropathy PALPATION: mid muscle belly tenderness of hamstrings OBSERVATION: note ecchymosis distal hamstrings FLEXABILITY: hamstrings mod/severe tight AROM : hip/knee WFL MMT: quads 4/5 ,hip flexion /abduction 4/5 ,( peak force ) hamstrings 19.2 Balance/Special Test Scores Lower Extremity Functional Score: 34 Goals Goal 1:: Patient to be I with HEP for hamstrings Goal Time Frame: 4-6 Weeks Goal 2:: Patient to improve peak force hamstrings by 5-10 # to improve function and ADL's Goal Time Frame: 4-6 Weeks Goal 3:: Patient to improve flexibility hamstrings by to min/mod tight to improve function and stairs Goal Time Frame: 4-6 Weeks Goal 4:: Patient to improve LFES score by 5 points to improve function and QOL Goal Time Frame: 4-6 Weeks Goal 5:: Patient to demonstrate 50% improvement decrease improve function ADLS Goal Time Frame: 4-6 Weeks Rehabilitation Potential Physical Therapy Diagnosis: Patient pull hamstrings playing pickleball caused pain and bruising with tight hamstrings , weakness impairs general activity and housework thus benefit from skilled PT Rehabilitation Potential: Good Anticipated Interventions Patient/Client Instruction: Educate patient on: Condition and Plan of Care For the Purpose of:: To decrease pain, To improve nutrient delivery to tissue, To improve muscle performance and motor function, To improve ability to perform ADL's, To increase tolerance to activity/condition/posit ion, To improve ability of physical actions for home/community/work/leis ure, To improve health of tissue, To decrease soft tissue restriction, To increase flexibility/ROM, To improve endurance and To improve balance Therapeutic Exercise to Include: Strength training, Power training, Endurance training, Balance training, Flexibilty training and Active ROM For the Purpose of:: To decrease pain, To increase ROM, To improve muscle performance and motor function, To improve ability to perform ADL's, To increase tolerance to activity/condition/posit ion, To improve ability of physical actions for home/community/work/leis ure, To improve health of tissue, To decrease soft tissue restriction, To increase flexibility/ROM, To improve endurance and To improve balance Manual Therapy Techniques to Include: Soft tissue mobilization Comment: HAMSTRINGS For the Purpose of:: To decrease pain, To decrease swelling/inflammation, To increase ROM, To improve nutrient delivery to tissue, To increase oxygenation perfusion, To improve health of tissue, To decrease soft tissue restriction, To increase flexibility/ROM and To improve tolerance to ADL's TENS: Yes IF ES: Yes Cryotherapy (ice pack, ice massage): Yes Thermo therapy (hot pack): Yes Ultrasound (thermal/non thermal): Yes For the Purpose of:: To decrease pain, To increase ROM, To improve nutrient delivery to tissue, To increase oxygenation perfusion, To improve health of ti (more content not included)... Normal [facility] HIP, UNI W/ Pelvis 2-3 Views on 06-20-2024 HIP, UNI W/ Pelvis 2-3 Views [facility] Imaging Services [address] [place] [address] HIP, UNI W/ Pelvis 2-3 Views MR#: [id number] Acct: [id number] Name: ANDRÉS GUEVARA Rep #: [id number] : 1950 M 74 From: Wesley Mendoza MD PCP: Dr. Abel Mardigal MD Status: REG CLI Study: HIP, UNI W/ Pelvis 2-3 Views Date of Exam: Exam# [id number] Ordering Dr: Abel Madrigal MD PROCEDURE: HIP, UNI W/ PELVIS 2-3 VIEWS 06/20/2024 REASON FOR EXAM: RIGHT INGUINAL PAIN. PAIN INCREASED WITH WALKING AND FAST PACE WALKING. TECHNIQUE: Three (3) view of the right hip COMPARISON: No relevant prior. FINDINGS: No fractures, dislocations, or subluxations. No other osseous abnormalities. Soft tissues are unremarkable. RAD/HIP, UNI W/ Pelvis 2-3 Views IMPRESSION: No osseous abnormalities. Reading Location: [facility] CC: Dr. Abel Madrigal MD [place] Maker: Signed Normal [facility] Absolute neutrophil countOrd ered By: Abel Madrigal on 06-06-2024 Neutrophils (Bld) [#/Vol] 4.6 10*3/uL 2.0-7.7 [facility] Anion gap in Serum or Plasma Ordered By: Abel Madrigal on 06-06-2024 Anion gap [Moles/Vol] 12 mmol/L 5-15 [facility] BUN/creatinine ratioOrdered By: Abel Madrigal on 06-06-2024 Urea nitrogen/Creatinine [Mass ratio] 17.3 mg/mg 10-20 [facility] Basophil percentageOrdered B y: Abel Madrigal on 06-06-2024 Basophils/100 WBC (Bld) 0.3 % 0-1 [facility] Bilirubin, totalOrdered By: Abel Madrigal on 06-06-2024 Bilirubin [Mass/Vol] 0.64 mg/dL 0.00-1.30 [facility] CBC W/Diff, Automatedon 05-27 Absolute Lymph 1.31 X10 3/uL Normal 0.83-4.51 [facility] Comment on above: Performed By: #### L 500.4050, L100.0100, L506.1001 ####[facility] [address] [place], [address] Absolute Neut 4.6 X10 3/uL Normal 2.0-7.7 [facility] Comment on above: Performed By: #### L 500.4050, L100.0100, L506.1001 ####[facility] [address] [place], [address] Basophils/100 WBC (Bld) 0.3 % Normal 0-1 [facility] Comment on above: Performed By: #### L 500.4050, L100.0100, L506.1001 ####[facility] [address] [place], [address] Eosinophils/100 WBC (Bld) 5.9 % High 0-5 [facility] Comment on above: Performed By: #### L 500.4050, L100.0100, L506.1001 ####[facility] [address] [place], [address] Erythrocyte distribution width (RBC) [Ratio] 13.2 % Normal 11.6-14.6 [facility] Comment on above: Performed By: #### L 500.4050, L100.0100, L506.1001 ####[facility] [address] [place], [address] Hematocrit (Bld) [Volume fraction] 39.3 % Low 40-54 [facility] Comment on above: Performed By: #### L 500.4050, L100.0100, L506.1001 ####[facility] [address] [place], [address] Hemoglobin (Bld) [Mass/Vol] 13.3 g/dL Normal 13.0-16.5 [facility] Comment on above: Performed By: #### L 500.4050, L100.0100, L506.1001 ####[facility] [address] [place], [address] IG% 0.300 Normal 0.0-0.9 [facility] Comment on above: Result Comment: IG% - Immature Granulocytes (promyelocytes, myelocytes and metamyelocytes) > 1% indicates that a LEFT SHIFT is Present. Performed By: #### L 500.4050, L100.0100, L506.1001 ####[facility] [address] [place], [address] Lymphocytes/100 WBC (Bld) 18.3 % Low 19-41 [facility] Comment on above: Performed By: #### L 500.4050, L100.0100, L506.1001 ####[facility] [address] [place], [address] MCH (RBC) [Entitic mass] 32.1 pg High 27.0-32.0 [facility] Comment on above: Performed By: #### L 500.4050, L100.0100, L506.1001 ####[facility] [address] [place], [address] MCHC (RBC) [Mass/Vol] 33.8 g/dL Normal 32-36 [facility] Comment on above: Performed By: #### L 500.4050, L100.0100, L506.1001 ####[facility] [address] [place], [address] MCV (RBC) [Entitic vol] 94.9 fL High 80-94 [facility] Comment on above: Performed By: #### L 500.4050, L100.0100, L506.1001 ####[facility] [address] [place], [address] Monocytes/100 WBC (Bld) 10.9 % High 0-10 [facility] Comment on above: Performed By: #### L 500.4050, L100.0100, L506.1001 ####[facility] [address] [place], [address] Neutrophils/100 WBC (Bld) 64.3 % Normal 47-70 [facility] Comment on above: Performed By: #### L 500.4050, L100.0100, L506.1001 ####[facility] [address] [place], [address] Nucleated RBC (Bld) [#/Vol] 0 10*3/uL Normal 0-5 [facility] Comment on above: Performed By: #### L 500.4050, L100.0100, L506.1001 ####[facility] [address] [place], [address] Platelet mean volume (Bld) [Entitic vol] 8.9 fL Normal 6.2-12.0 [facility] Comment on above: Performed By: #### L 500.4050, L100.0100, L506.1001 ####[facility] [address] [place], [address] Platelets (Bld) [#/Vol] 311 10*3/uL Normal 150-450 [facility] Comment on above: Performed By: #### L 500.4050, L100.0100, L506.1001 ####[facility] [address] [place], [address] RBC (Bld) [#/Vol] 4.14 10*6/uL Low 4.6-6.2 [facility] Comment on above: Performed By: #### L 500.4050, L100.0100, L506.1001 ####[facility] [address] [place], [address] RDW SD 46.6 fl High 35.1-43.9 [facility] Comment on above: Performed By: #### L 500.4050, L100.0100, L506.1001 ####[facility] [address] [place], [address] WBC (Bld) [#/Vol] 7.2 10*3/uL Normal 4.4-11.0 [facility] Comment on above: Performed By: #### L 500.4050, L100.0100, L506.1001 ####[facility] [address] [place], [address] Carbon dioxide, total [Moles /volume] in Central venous bloodOrdered By: Abel Madrigal on 06-06-2024 CO2 [Moles/Vol] 21.6 mmol/L 21.0-32.0 [facility] Chloride assayOrdered By: Me renea Madrigal on 06-06-2024 Chloride [Moles/Vol] 106 mmol/L 98-108 [facility] Comprehensive Metabolic Prof ilon 06-06-2024 Albumin [Mass/Vol] 4.4 g/dL Normal 3.4-4.8 [facility] Comment on above: Performed By: #### L 500.4050, L100.0100, L506.1001 ####[facility] [address] [place], [address] Albumin/Globulin [Mass ratio] 1.5 {ratio} Normal 0.9-2.4 [facility] Comment on above: Performed By: #### L 500.4050, L100.0100, L506.1001 ####[facility] [address] [place], [address] ALK PHOS 81 U/L Normal 40-129 [facility] Comment on above: Performed By: #### L 500.4050, L100.0100, L506.1001 ####[facility] [address] [place], [address] ALT [Catalytic activity/Vol] 18 U/L Normal <=46 [facility] Comment on above: Performed By: #### L 500.4050, L100.0100, L506.1001 ####[facility] [address] [place], [address] AST [Catalytic activity/Vol] 25 U/L Normal <=37 [facility] Comment on above: Performed By: #### L 500.4050, L100.0100, L506.1001 ####[facility] [address] [place], [address] Bilirubin [Mass/Vol] 0.64 mg/dL Normal 0.00-1.30 [facility] Comment on above: Performed By: #### L 500.4050, L100.0100, L506.1001 ####[facility] [address] [place], [address] BUN/CRE 17.3 RATIO Normal 10-20 [facility] Comment on above: Performed By: #### L 500.4050, L100.0100, L506.1001 ####[facility] [address] [place], [address] Calcium [Mass/Vol] 9.6 mg/dL Normal 7.6-11.0 [facility] Comment on above: Performed By: #### L 500.4050, L100.0100, L506.1001 ####[facility] [address] [place], [address] Chloride [Moles/Vol] 106 mmol/L Normal 98-108 [facility] Comment on above: Performed By: #### L 500.4050, L100.0100, L506.1001 ####[facility] [address] [place], [address] CO2 [Moles/Vol] 21.6 mmol/L Normal 21.0-32.0 [facility] Comment on above: Performed By: #### L 500.4050, L100.0100, L506.1001 ####[facility] [address] [place], [address] Creatinine [Mass/Vol] 1.61 mg/dL High 0.70-1.20 [facility] Comment on above: Performed By: #### L 500.4050, L100.0100, L506.1001 ####[facility] [address] [place], [address] GAP 12 Normal 5-15 [facility] Comment on above: Performed By: #### L 500.4050, L100.0100, L506.1001 ####[facility] [address] [place], [address] GFR/1.73 sq M.predicted among non-blacks MDRD (S/P/Bld) [Vol rate/Area] 45 mL/min/{1.73_m2} Low >60 [facility] Comment on above: Result Comment: mL/m in/1.73m2 CKD-EPI Creatinine Equation (2020) Performed By: #### L 500.4050, L100.0100, L506.1001 ####[facility] [address] [place], [address] Globulin (S) [Mass/Vol] 2.9 g/dL Normal 2.2-4.2 [facility] Comment on above: Performed By: #### L 500.4050, L100.0100, L506.1001 ####[facility] [address] [place], [address] Glucose [Mass/Vol] 90 mg/dL Normal 70-99 [facility] Comment on above: Performed By: #### L 500.4050, L100.0100, L506.1001 ####[facility] [address], [address] Potassium [Moles/Vol] 4.7 mmol/L Normal 3.3-5.1 [facility] Comment on above: Performed By: #### L 500.4050, L100.0100, L506.1001 ####[facility] [address] [place], [address] Sodium [Moles/Vol] 139 mmol/L Normal 133-145 [facility] Comment on above: Performed By: #### L 500.4050, L100.0100, L506.1001 ####[facility] [address] [place], [address] T PROT 7.3 g/dL Normal 5.9-8.4 [facility] Comment on above: Performed By: #### L 500.4050, L100.0100, L506.1001 ####[facility] [address] [place], [address] Urea nitrogen [Mass/Vol] 28 mg/dL High 4-19 [facility] Comment on above: Performed By: #### L 500.4050, L100.0100, L506.1001 ####[facility] [address] [place], [address] Eosinophil percentageOrdered By: Abel Madrigal on 06-06-2024 Eosinophils/100 WBC (Bld) 5.9 % High 0-5 [facility] Erythrocyte distribution wid th (RBC) [Ratio]Ordered By: Abel Madrigal on 06-06-2024 Erythrocyte distribution width (RBC) [Entitic vol] 46.6 fL High 35.1-43.9 [facility] Erythrocyte distribution wid th ratioOrdered By: Abel Madrigal on 06-06-2024 Erythrocyte distribution width (RBC) [Ratio] 13.2 % 11.6-14.6 [facility] GFR/1.73 sq M.predicted corona g non-blacks MDRD (S/P/Bld) [Vol rate/Area]Ordered By: Abel Madrigal on 06-06-2024 Estimated GFR (MDRD) Non-Af Amer 45 Low >60 [facility] Comment on above: mL/min/1.73m2 CKD-EP I Creatinine Equation (2020) Hematocrit Auto (Bld) [Volum e fraction]Ordered By: Abel Madrigal on 06-06-2024 Hematocrit (Bld) [Volume fraction] 39.3 % Low 40-54 [facility] Hemoglobin measurementOrdere d By: Abel Madrigal on 06-06-2024 Hemoglobin (Bld) [Mass/Vol] 13.3 g/dL 13.0-16.5 [facility] Immature granulocytes/100 WB C Auto (Bld)Ordered By: Abel Madrigal on 06-06-2024 Immature granulocytes/100 WBC (Bld) 0.300 % 0.0-0.9 [facility] Comment on above: IG% - Immature Granu locytes (promyelocytes, myelocytes and metamyelocytes) > 1% indicates that a LEFT SHIFT is Present. Laboratory - Chemistry and C hemistry - challengeOrdered By: Abel Madrigal on 06-06-2024 AST [Catalytic activity/Vol] 25 U/L <38 [facility] Lymphocytes Auto (Unsp spec) [#/Vol]Ordered By: Abel Madrigal on 06-06-2024 Lymphocytes (Bld) [#/Vol] 1.31 10*3/uL 0.83-4.51 [facility] Lymphocytes/100 WBC Auto (Un sp spec)Ordered By: Abel Nataliaallaee on 06-06-2024 Lymphocytes/100 WBC (Bld) 18.3 % Low 19-41 [facility] MCV (mean corpuscular volume ) determinationOrdered By: Abelerlin Sternaee on 06-06-2024 MCV (RBC) [Entitic vol] 94.9 fL High 80-94 [facility] Mean corpuscular hemoglobin (MCH) determinationOrdered By: Abel Tavallaee on 06-06-2024 MCH (RBC) [Entitic mass] 32.1 pg High 27.0-32.0 [facility] Mean corpuscular hemoglobin concentration (MCHC) determinationOrdered By: Abelerlin Sternaee on 06-06-2024 MCHC (RBC) [Mass/Vol] 33.8 g/dL 32-36 [facility] Mean platelet volume determi nationOrdered By: Abel Leenaaee on 06-06-2024 Platelet mean volume (Bld) [Entitic vol] 8.9 fL 6.2-12.0 [facility] Monocyte percentageOrdered B y: Abelerlin Solere on 06-06-2024 Monocytes/100 WBC (Bld) 10.9 % High 0-10 [facility] Neutrophil percentageOrdered By: Abel Leenaaee on 06-06-2024 Neutrophils/100 WBC (Bld) 64.3 % 47-70 [facility] Nucleated red blood cell per centageOrdered By: Abel Leenaaee on 06-06-2024 Nucleated RBC/100 WBC (Bld) [Ratio] 0 % 0-5 [facility] Platelet countOrdered By: Me peckdaerlin Sternaee on 06-06-2024 Platelets (Bld) [#/Vol] 311 10*3/uL 150-450 [facility] Potassium (Unsp spec) [Mass/ Vol]Ordered By: Abel Madrigal on 06-06-2024 Potassium [Moles/Vol] 4.7 mmol/L 3.3-5.1 [facility] RBC Auto (Bld) [#/Vol]Ordere d By: Abel Madrigal on 06-06-2024 RBC (Bld) [#/Vol] 4.14 10*6/uL Low 4.6-6.2 [facility] Serum creatinine measurement (mass/volume)Ordered By: Abel Madrigal on 06-06-2024 Creatinine [Mass/Vol] 1.61 mg/dL High 0.70-1.20 [facility] Serum globulin measurementOr dered By: Abel Madrigal on 06-06-2024 Globulin (S) [Mass/Vol] 2.9 g/dL 2.2-4.2 [facility] Serum glucose measurement (m ass/volume)Ordered By: Abel Madrigal on 06-06-2024 Glucose [Mass/Vol] 90 mg/dL 70-99 [facility] Serum or plasma alanine booth otransferase (ALT) measurementOrdered By: Abel Madrigal on 06-06-2024 ALT [Catalytic activity/Vol] 18 U/L <47 [facility] Serum or plasma albumin kiya urement (mass/volume)Ordered By: Abel Madrigal on 06-06-2024 Albumin [Mass/Vol] 4.4 g/dL 3.4-4.8 [facility] Serum or plasma albumin/glob ulin mass ratioOrdered By: Abel Madrigal on 06-06-2024 Albumin/Globulin [Mass ratio] 1.5 {ratio} 0.9-2.4 [facility] Serum or plasma alkaline yuriy sphatase measurementOrdered By: Abel Madrigal on 06-06-2024 ALP [Catalytic activity/Vol] 81 U/L 40-129 [facility] Serum or plasma calcium kiya urement (mass/volume)Ordered By: Abel Madrigal on 06-06-2024 Calcium [Mass/Vol] 9.6 mg/dL 7.6-11.0 [facility] Serum or plasma urea nitroge n measurement (mass/volume)Ordered By: Abel Madrigal on 06-06-2024 Urea nitrogen [Mass/Vol] 28 mg/dL High 4-19 [facility] Sodium levelOrdered By: Marcellohr mathieu Madrigal on 06-06-2024 Sodium [Moles/Vol] 139 mmol/L 133-145 [facility] Total proteinOrdered By: [facility] frank Madrigal on 06-06-2024 Protein [Mass/Vol] 7.3 g/dL 5.9-8.4 [facility] Vitamin D, 25-hydroxyOrdered By: Abel Madrigal on 06-06-2024 Vitamin D 25-Hydroxy 49.3 ng/mL 30-100 [facility] Comment on above: Vitamin D StatusDefi ciency: <20 ng/mL (50nmol/L)Insufficiency: 20-30 ng/mL (50-75 nmol/L)Sufficiency: 30-100 ng/mL (75-250 nmol/L)Toxicity: >100 ng/mL (>250 nmol/L) Vitamin D,25 Hydroxyon 06-06 Vitamin D 25-OH 49.3 ng/mL Normal 30-100 [facility] Comment on above: Result Comment: Rosalinda min D Status Deficiency: <20 ng/mL (50nmol/L) Insufficiency: 20-30 ng/mL (50-75 nmol/L) Sufficiency: 30-100 ng/mL (75-250 nmol/L) Toxicity: >100 ng/mL (>250 nmol/L) Performed By: #### L 500.4050, L100.0100, L506.1001 ####[facility] [address] [place], [address] White blood cell (WBC) count Ordered By: Abel Madrigal on 06-06-2024 WBC (Bld) [#/Vol] 7.2 10*3/uL 4.4-11.0 [facility] Stress Reporton 04-11-2024 Stress Report [facility] [address] [place] [address] MR#: [id number] Acct: [id number] Name: ANDRÉS GUEVARA Rep #: [id number] : 1950 73 From: Himanshu Koch MD Primary Care: Dr. Abel Madrigal MD Status: REG CLI Referring Dr: Phyllis Givens Sex: M C Stress Test Report Exercise myocardial perfusion stress test. 73-year-old man with a history of coronary artery disease Stress protocol: Resting EKG demonstrates sinus bradycardia with a rate of 59 bpm resting blood pressure is 140/70 mmHg. The patient exercised according to the regular Teo protocol for a total duration of 12 minutes attaining a maximum heart rate of 144 bpm which was 98% of maximum predicted heart rate; the maximum workload was 13.7 metabolic equivalents. At rest there were no ST or T wave changes noted to suggest ischemia and at peak exercise upsloping ST changes only were noted which did not meet the criteria for ischemia. No clinical angina was noted the test was terminated due to the target heart rate being achieved/fatigue. The peak blood pressure was 180/52 mmHg. Rate-pressure product was 25,300. Myocardial perfusion protocol. 11.8 mCi of technetium 99m sestamibi was injected at rest. The patient exercised according to regular Teo protocol for total duration of 12 minutes and at peak exercise 34.5 mCi of technetium 99m sestamibi was injected stress images were obtained stress and rest images were reconstructed in comparing the short axis vertical long and horizontal long axis. Gated images were also obtained. Perfusion SPECT analysis: Review of the stress images demonstrate normal uptake of tracer noted in all areas of the myocardium. The resting images similarly demonstrate normal uptake of tracer noted in all areas of the myocardium. No areas of reversibility are noted to suggest ischemia no previous infarct was noted. Gated SPECT analysis: The gated ejection fraction is 69%. Conclusion: Normal exercise myocardial perfusion stress test at a high workload Preserved ejection fraction. 04/11/24 170 Date Himanshu Koch MD CC: Dr. Abel Madrigal MD; EVE Jiménez Date Dictated: 04/11/241704 Date Transcribed: 04/11/241704 [place] Maker: [place] Signed Normal [facility] Cardiology Visit Reporton Cardiology Visit Report [facility] [address] [place] [address] OFFICE VISIT Date of Service: 03/31/24 MR#: [id number] Acct: [id number] Name: ANDRÉS GUEVARA Rep #: [id number] : 1950 Provider: EVE Damon Age/Sex: 73/M Location: [facility] Status: Signed HPI HPI History of Present Illness Details: ANDRÉS GUEVARA, is a 73 M who presents to the office today for a follow-up visit. He is a gentleman with a history of coronary artery disease status post angioplasty and stenting of the right coronary artery with moderate disease in the LAD, diagonal vessel and circumflex artery. 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 Stress test in 2019 demonstrated no evidence of ischemia after he had presented with chest pain. An echocardiogram which had also been performed a year prior to demonstrate ejection fraction of 55-60%. He was in the hospital in 03/2023 with sepsis for a kidney stone. From a cardiac standpoint, patient is doing well. He does not have any chest discomfort/heaviness/tig htness. His exercise tolerance is stable for his age. He does not have any worsening symptoms of shortness of breath. He denies any PND. He does not have any orthopnea. He does not have any symptoms of congestive heart failure. He does not have any palpitations that he is aware of. He does not have any lightheadedness or dizziness. He does not have any near-syncope or syncope. He does not have any lower extremity edema. He does not have any symptoms of claudication. Intake Vital Signs 10/03/23 08:33 03/31/24 15:25 03/31/24 15:59 Height 5 ft 10 in 5 ft 10 in Weight: 162 lb 168 lb BMI 23.2 24.0 BP 125/75 H 137/73 H 142/80 H Blood Pressure Location Lt brachial Lt brachial Position Sitting Sitting Respiration 18 18 Pulse 57 L 59 L Pulse Source Monitor Monitor Pulse Oximetry (%) 97 Intake Visit Reasons: 6 M FU Inbound Call Center Agent Required: No Is patient in pain?: No Allergies No Known Allergies Allergy (Verified 03/31/24 15:26) Medications ???Medication ???Instructions ???Recorded ???Confirmed ???Type famotidine 20 mg tablet (Acid 20 mg PO QHS gerd 04/11/19 5 History Innersole Maker (famotidine)) ascorbate calcium (vitamin C) 500 500 mg PO DAILY 07/01/19 03/31/24 History mg tablet multivitamin-ferrous 1 tab PO QHS 07/01/19 03/31/24 His tory fumarate-folic acid 18 mg-400 mcg tablet (Centrum Complete) ergocalciferol (vitamin D2) 1,250 1,250 mcg PO Q2W 10/07/19 5 History mcg (50,000 unit) capsule (Vitamin D2) sodium chloride 0.65 % nasal spray 2 spray NASAL TID PRN PRN NASAL 04/13/23 03/31/24 Rx aerosol (Deep Sea Nasal) DRYNESS #0 mL clopidogrel 75 mg tablet 75 mg PO DAILY #90 tabs 06/27/23 0 03/31/24 Rx atorvastatin 40 mg tablet 40 mg PO .qod #45 tabs 08/20/23 Rx amlodipine 2.5 mg tablet 2.5 mg PO BID #180 TABLETS 4 03/31/24 Rx losartan 25 mg tablet 25 mg PO DAILY 10/03/23 03/31/24 H istory Have you fallen in the past year?: No PFSH Medical History Myocardial infarct Neuralgia of groin Right inguinal hernia History of back problems Stage III chronic kidney disease Prostate cancer Nonrheumatic mitral (valve) insufficiency History of non-ST elevation myocardial infarction (NSTEMI) (05/22/15) Atherosclerosis of coronary artery of [place] heart without angina pectoris Essential (primary) hypertension Calculus of left kidney Sarcoidosis of lung GERD (gastroesophageal reflux disease) Hyperlipidemia Surgical History History of inguinal herniorrhaphy (07/09/19) History of colonoscopy (2011) History of prostatectomy History of cataract surgery History of coronary artery stent placement (05/22/15) History of extraction of renal calculus H/O shoulder surgery Family History Father Hypertension Social History Smoking Status: Never smoker alcohol intake: never substance use type: does not use caffeine: Yes Type: carbonated beverages Number of servings: 1 what type of physical activity do you participate in: walking and bicycling frequency: daily duration: 60-90 minutes/day seatbelt use: always do you feel safe at home: Yes ROS Const Const: Negative for fatigue, weakness, fever(s) or headache(s) Eyes Eyes: Negative for blind spots, loss of peripheral vision or transient loss of vision ENT ENT: Negative for headache(s), dizziness, tinnitus, Nosebleed/epistaxis or balance problems Cardio Chest Pain: No Palpitations: N (more content not included)... Normal [facility] Abdomen Single Viewon 2023 Abdomen Single View [facility] Imaging Services [address] [place] [address] [id number] Abdomen Single View MR#: [id number] Acct: [id number] Name: ANDRÉS GUEVARA Rep #: [id number] : 1950 M 73 From: Palomo Kern PCP: Dr. Abel Madrigal MD Status: REG CLI Study: Abdomen Single View Date of Exam: 02/06/24 Exam# [id number] Ordering Dr: Theodora Ramirez [id number] EXAM: XR ABDOMEN, 1 VIEW CLINICAL INDICATION: CALCULUS OF URETER TECHNIQUE: Frontal supine view of the abdomen/pelvis. COMPARISON: No relevant prior studies available. FINDINGS: LOWER THORAX: No acute pathology. GASTROINTESTINAL TRACT: Unremarkable. Non-obstructive. No bowel or stomach distention. ORGANS: Calcification measuring 3 mm over the left kidney. No organomegaly. BONES/JOINTS: No acute pathology. SOFT TISSUES: No acute pathology. VASCULATURE: Small calcification in the right side of the pelvis likely represents a phlebolith. RAD/Abdomen Single View IMPRESSION: 1. Calcification measuring 3 mm over the left kidney. 2. Small calcification in the right side of the pelvis likely represents a phlebolith. Electronically Signed: Palomo Mcbride MD at 0:26 EST , CC: Dr. Abel Madrigal MD; Theodora Ramirez Hollock Maker: Signed Normal [facility] PSA,Total- Diagnosticon 01-26 PSA, DIAGNOSTIC < 0.01 Normal 0.0-4.0 [facility] Comment on above: Result Comment: This test was performed using the TPSA assay method for the Osito chemistry system. Values obtained with different assay methods cannot be used interchangably. When changing PSA assays in the course of monitoring a patient, additional sequential testing should be carried out to confirm baseline values. Performed By: #### L 501.9940 #### [facility] Laboratory [facility] [address] [place], [place], [id number] Absolute lymphocyte countOrd ered By: Mau Acharya on 06-15-2023 Lymphocytes Auto (Unsp spec) [#/Vol] 1.02 10*3/uL 0.83-4.51 [facility] Automated lymphocyte count a s percentage of total leukocytesOrdered By: Mau Acharya on 06-15-2023 Lymphocytes/100 WBC Auto (Unsp spec) 16.9 % 19-41 [facility] Basophil percentageOrdered B y: Mau Acharya on 06-15-2023 Basophil percentage 2.8 mg/dL 2.5-4.9 [facility] Basophils/100 WBC (Bld) 0.3 % 0-1 [facility] Bilirubin [Mass/Vol] 0.70 mg/dL 0.20-1.00 [facility] Comment on above: For patients on eltr ombopag therapy, use of Dimension [place] TBIL is not recommended. Chloride [Moles/Vol] 110 mmol/L 98-107 [facility] Eosinophils/100 WBC (Bld) 5.5 % 0-5 [facility] Glucose [Mass/Vol] 94 mg/dL 74-106 [facility] Hemoglobin (Bld) [Mass/Vol] 11.9 g/dL 13.0-16.5 [facility] Monocytes/100 WBC (Bld) 12.4 % 0-10 [facility] Neutrophils (Bld) [#/Vol] 3.9 10*3/uL 2.0-7.7 [facility] Neutrophils/100 WBC (Bld) 64.7 % 47-70 [facility] Potassium [Moles/Vol] 4.4 mmol/L 3.5-5.1 [facility] Protein [Mass/Vol] 7.2 g/dL 6.4-8.2 [facility] Sodium [Moles/Vol] 139 mmol/L 136-145 [facility] WBC (Bld) [#/Vol] 6.1 10*3/uL 4.4-11.0 [facility] Determination of erythrocyte mean corpuscular volume (MCV)Ordered By: Mau Acharya on 06-15-2023 MCV (RBC) [Entitic vol] 94.5 fL 80-94 [facility] Erythrocyte distribution wid th ratioOrdered By: Mau Acharya on 06-15-2023 Erythrocyte distribution width (RBC) [Ratio] 14.1 % 11.6-14.6 [facility] Erythrocyte distribution wid th standard deviationOrdered By: Mau Acharya on 06-15-2023 Erythrocyte distribution width (RBC) [Entitic vol] 48.8 fL 35.1-43.9 [facility] Hematocrit Auto (Bld) [Volum e fraction]Ordered By: Mau Acharya on 06-15-2023 Hematocrit (Bld) [Volume fraction] 36.2 % 40-54 [facility] Immature granulocytes/100 WB C Auto (Bld)Ordered By: Mau Acharya on 06-15-2023 Immature granulocytes/100 WBC (Bld) 0.200 % 0.0-0.9 [facility] Comment on above: IG% - Immature Granu locytes (promyelocytes, myelocytes and metamyelocytes) > 1% indicates that a LEFT SHIFT is Present. Laboratory - Chemistry and C hemistry - challengeOrdered By: Mau Acharya on 06-15-2023 Albumin/Globulin [Mass ratio] 0.9 {ratio} 0.9-2.4 [facility] ALP [Catalytic activity/Vol] 84 U/L 45-117 [facility] ALT [Catalytic activity/Vol] 26 U/L 16-61 [facility] CO2 [Moles/Vol] 26.0 mmol/L 21.0-32.0 [facility] Globulin (S) [Mass/Vol] 3.7 g/dL 2.2-4.2 [facility] Magnesium [Mass/Vol] 2.2 mg/dL 1.6-2.6 [facility] Urea nitrogen/Creatinine [Mass ratio] 19.1 mg/mg 10-20 [facility] Laboratory - Hematology and Cell countsOrdered By: Mau Acharya on 06-15-2023 MCH (RBC) [Entitic mass] 31.1 pg 27.0-32.0 [facility] MCHC (RBC) [Mass/Vol] 32.9 g/dL 32-36 [facility] Nucleated RBC/100 WBC (Bld) [Ratio] 0 % 0-5 [facility] Platelet mean volume (Bld) [Entitic vol] 8.4 fL 6.2-12.0 [facility] Platelets (Bld) [#/Vol] 299 10*3/uL 150-450 [facility] No Panel InformationOrdered By: Mau Acharya on 06-15-2023 Estimated GFR (MDRD) Amer 58 mL/min >60 [facility] Comment on above: GFR Calc Estimated GFR (MDRD) Non-Af Amer 48 mL/min >60 [facility] Comment on above: Non- GFR Calc Parathyroid Hormone (Intact) 24.5 pg/mL 18.4-80.1 [facility] Urine Microalbumin/Creatinine Ratio 5.8 mg/g CRE <30 [facility] Vitamin D 25-Hydroxy 59.6 ng/mL [facility] Comment on above: Vitamin D 25(OH) Sta tus Range Deficiency <20 ng/mL (50nmol/L) Insufficiency 20 - 30 ng/mL (50 - 75 nmol/L) Sufficiency 30 - 100 ng/mL (75 - 250 nmol/L) Toxicity >100 ng/mL (>250 nmol/L) RBC Auto (Bld) [#/Vol]Ordere d By: Mau Acharya on 06-15-2023 RBC (Bld) [#/Vol] 3.83 10*6/uL 4.6-6.2 [facility] Serum or plasma calcitriol m easurement (mass/volume)Ordered By: Mau Acharya on 06-15-2023 1,25-dihydroxyvitamin D3 [Mass/Vol] 58.4 pg/mL 24.8-81.5 [facility] Comment on above: Performed at: - [address] [id number] Director: Riya Guzman MD, Phone: [phone] Serum or plasma calcium kiya urement (mass/volume)Ordered By: Mau Acharya on 06-15-2023 Calcium [Mass/Vol] 9.1 mg/dL 8.5-10.1 [facility] Serum or plasma creatinine m easurement (mass/volume)Ordered By: Mau Acharya on 06-15-2023 Creatinine [Mass/Vol] 1.52 mg/dL 0.70-1.30 [facility] Comment on above: The validity of the calculated GFR & GFRAA in patients over 70 years has not been determined. Clinical correlation is essential. Serum or plasma urea nitroge n measurement (mass/volume)Ordered By: Mau Acharya on 06-15-2023 Urea nitrogen [Mass/Vol] 29 mg/dL 7-18 [facility] Serum or plasma uric acid me asurement (mass/volume)Ordered By: Mau Acharya on 06-15-2023 Urate [Mass/Vol] 7.9 mg/dL 3.5-7.2 [facility] Comment on above: The drugs N-Acetylcy steine and Metamizole may falsely depress this assay. Thin prep Papanicolaou smear with manual screeningOrdered By: Mau Acharya on 06-15-2023 Thin prep Papanicolaou smear with manual screening 3.5 g/dL 3.2-5.0 [facility] Thin prep Papanicolaou smear with manual screening 22 U/L 15-37 [facility] Thin prep Papanicolaou smear with manual screening 3 5-15 [facility] Thin prep Papanicolaou smear with manual screening 5.7 mg/L NO RANGE EST. [facility] Urine creatinine measurement (mass/volume)Ordered By: Mau Acharya on 06-15-2023 Creatinine (U) [Mass/Vol] 98.60 mg/dL NO RANGE EST. [facility] Absolute lymphocyte countOrd ered By: Mau Acharya on 04-18-2023 Lymphocytes Auto (Unsp spec) [#/Vol] 1.21 10*3/uL 0.83-4.51 [facility] Automated lymphocyte count a s percentage of total leukocytesOrdered By: Mau Acharya on 04-18-2023 Lymphocytes/100 WBC Auto (Unsp spec) 10.5 % 19-41 [facility] Basophil percentageOrdered B y: Mau Acharya on 04-18-2023 Basophil percentage 3.1 mg/dL 2.5-4.9 [facility] Basophils/100 WBC (Bld) 0.3 % 0-1 [facility] Bilirubin [Mass/Vol] 0.90 mg/dL 0.20-1.00 [facility] Comment on above: For patients on eltr ombopag therapy, use of Dimension [place] TBIL is not recommended. Chloride [Moles/Vol] 114 mmol/L 98-107 [facility] Eosinophils/100 WBC (Bld) 2.3 % 0-5 [facility] Glucose [Mass/Vol] 94 mg/dL 74-106 [facility] Hemoglobin (Bld) [Mass/Vol] 10.3 g/dL 13.0-16.5 [facility] Monocytes/100 WBC (Bld) 8.4 % 0-10 [facility] Neutrophils (Bld) [#/Vol] 8.9 10*3/uL 2.0-7.7 [facility] Neutrophils/100 WBC (Bld) 76.5 % 47-70 [facility] Potassium [Moles/Vol] 4.2 mmol/L 3.5-5.1 [facility] Protein [Mass/Vol] 7.3 g/dL 6.4-8.2 [facility] Sodium [Moles/Vol] 141 mmol/L 136-145 [facility] WBC (Bld) [#/Vol] 11.6 10*3/uL 4.4-11.0 [facility] Determination of erythrocyte mean corpuscular volume (MCV)Ordered By: Mau Acharya on 04-18-2023 MCV (RBC) [Entitic vol] 95.7 fL 80-94 [facility] Erythrocyte distribution wid th ratioOrdered By: Mau Acharya on 04-18-2023 Erythrocyte distribution width (RBC) [Ratio] 14.1 % 11.6-14.6 [facility] Erythrocyte distribution wid th standard deviationOrdered By: Mau Acharya on 04-18-2023 Erythrocyte distribution width (RBC) [Entitic vol] 49.7 fL 35.1-43.9 [facility] Hematocrit Auto (Bld) [Volum e fraction]Ordered By: Mau Acharya on 04-18-2023 Hematocrit (Bld) [Volume fraction] 31.3 % 40-54 [facility] Immature granulocytes/100 WB C Auto (Bld)Ordered By: Mau Acharya on 04-18-2023 Immature granulocytes/100 WBC (Bld) 2.000 % 0.0-0.9 [facility] Comment on above: IG% - Immature Granu locytes (promyelocytes, myelocytes and metamyelocytes) > 1% indicates that a LEFT SHIFT is Present. Laboratory - Chemistry and C hemistry - challengeOrdered By: Mau Acharya on 04-18-2023 Albumin/Globulin [Mass ratio] 0.6 {ratio} 0.9-2.4 [facility] ALP [Catalytic activity/Vol] 183 U/L 45-117 [facility] ALT [Catalytic activity/Vol] 91 U/L 16-61 [facility] CO2 [Moles/Vol] 21.0 mmol/L 21.0-32.0 [facility] Globulin (S) [Mass/Vol] 4.7 g/dL 2.2-4.2 [facility] Magnesium [Mass/Vol] 2.1 mg/dL 1.6-2.6 [facility] Urea nitrogen/Creatinine [Mass ratio] 21.5 mg/mg 10-20 [facility] Laboratory - Hematology and Cell countsOrdered By: Mau Acharya on 04-18-2023 MCH (RBC) [Entitic mass] 31.5 pg 27.0-32.0 [facility] MCHC (RBC) [Mass/Vol] 32.9 g/dL 32-36 [facility] Nucleated RBC/100 WBC (Bld) [Ratio] 0 % 0-5 [facility] Platelet mean volume (Bld) [Entitic vol] 9.9 fL 6.2-12.0 [facility] Platelets (Bld) [#/Vol] 422 10*3/uL 150-450 [facility] No Panel InformationOrdered By: Mau Acharya on 04-18-2023 Estimated GFR (MDRD) Amer 49 mL/min >60 [facility] Comment on above: GFR Calc Estimated GFR (MDRD) Non-Af Amer 40 mL/min >60 [facility] Comment on above: Non- GFR Calc Parathyroid Hormone (Intact) 38.5 pg/mL 18.4-80.1 [facility] Urine Microalbumin/Creatinine Ratio 16.5 mg/g CRE <30 [facility] Vitamin D 25-Hydroxy 58.6 ng/mL [facility] Comment on above: Vitamin D 25(OH) Sta tus Range Deficiency <20 ng/mL (50nmol/L) Insufficiency 20 - 30 ng/mL (50 - 75 nmol/L) Sufficiency 30 - 100 ng/mL (75 - 250 nmol/L) Toxicity >100 ng/mL (>250 nmol/L) RBC Auto (Bld) [#/Vol]Ordere d By: Mau Acharya on 04-18-2023 RBC (Bld) [#/Vol] 3.27 10*6/uL 4.6-6.2 [facility] Serum or plasma calcium kiya urement (mass/volume)Ordered By: Mau Acharya on 04-18-2023 Calcium [Mass/Vol] 9.2 mg/dL 8.5-10.1 [facility] Serum or plasma creatinine m easurement (mass/volume)Ordered By: Mau Acharya on 04-18-2023 Creatinine [Mass/Vol] 1.77 mg/dL 0.70-1.30 [facility] Comment on above: The validity of the calculated GFR & GFRAA in patients over 70 years has not been determined. Clinical correlation is essential. Serum or plasma urea nitroge n measurement (mass/volume)Ordered By: Mau Acharya on 04-18-2023 Urea nitrogen [Mass/Vol] 38 mg/dL 7-18 [facility] Thin prep Papanicolaou smear with manual screeningOrdered By: Mau Acharya on 04-18-2023 Thin prep Papanicolaou smear with manual screening 2.6 g/dL 3.2-5.0 [facility] Thin prep Papanicolaou smear with manual screening 24 U/L 15-37 [facility] Thin prep Papanicolaou smear with manual screening 6 5-15 [facility] Thin prep Papanicolaou smear with manual screening 12.3 mg/L NO RANGE EST. [facility] Urine creatinine measurement (mass/volume)Ordered By: Mau Acharya on 04-18-2023 Creatinine (U) [Mass/Vol] 74.40 mg/dL NO RANGE EST. [facility] POCT UA Automated manually r esultedon 04-17-2023 Appearance (U) Clear Clear [facility] Work Phone: Glucose Test strip (U) [Mass/Vol] Negative NEGATIVE mg/dl [facility] Work Phone: Hemoglobin Ql (U) Negative NEGATIVE [facility] Work Phone: Leukocyte esterase Test strip Ql (U) Negative NEGATIVE [facility] Work Phone: Nitrite Ql (U) Negative NEGATIVE [facility] Work Phone: pH (U) 5.5 [pH] No Reference Range Established [facility] Work Phone: POC Bilirubin, [facility]rine [facility]: P[facility] Color, Urine Yellow Straw, Yellow, Light-Yellow [facility] Work Phone: POC Ketones, Urine Negative NEGATIVE mg/dl [facility] Work Phone: [phone] POC Protein, Urine Negative NEGATIVE, 30 (1+) mg/dl [facility] Work Phone: POC Specific [place], Urine 1.020 1.005 - 1.035 [facility] Work Phone: [phone] POC Urobilinogen, Urine 0.2 0.2, 1.0 EU/DL [facility] Work Phone: [facility] Work Phone: Absolute lymphocyte countOrd ered By: Wesley Martinez on 04-13-2023 Lymphocytes Auto (Unsp spec) [#/Vol] 1.21 10*3/uL 0.83-4.51 [facility] Automated lymphocyte count a s percentage of total leukocytesOrdered By: Wesley Martinez on 04-13-2023 Lymphocytes/100 WBC Auto (Unsp spec) [employer] LAMIN[employer] [facility] Comment on above: Previous reported re sult: 4.0 %Edited by: DYLAN on 04/13/23:08 AMENDED REPORT 04/13/23816 LY% previously reported as: 4.0 L % Basophil percentageOrdered B y: Wesley Martinez on 04-13-2023 Basophil percentage [employer] LAMIN[employer] [facility] Comment on above: Previous reported re sult: 80.0 %Edited by: DYLAN on 04/13/23:0817 AMENDED REPORT 04/13/23816 NEUT% previously reported as: 80.0 H % Previous reported re sult: 8.2 %Edited by: DYLAN on 04/13/23:0817 AMENDED REPORT 04/13/23816 MONO% previously reported as: 8.2 % Previous reported re sult: 1.2 %Edited by: DYLAN on 04/13/23:0817 AMENDED REPORT 04/13/23816 EO% previously reported as: 1.2 % Previous reported re sult: 0.5 %Edited by: DYLAN on 04/13/23:0817 AMENDED REPORT 04/13/23816 BASO% previously reported as: 0.5 % Bilirubin [Mass/Vol] 1.20 mg/dL 0.20-1.00 [facility] Comment on above: For patients on eltr ombopag therapy, use of Dimension [place] TBIL is not recommended. Chloride [Moles/Vol] 117 mmol/L 98-107 [facility] Glucose [Mass/Vol] 99 mg/dL 74-106 [facility] Hemoglobin (Bld) [Mass/Vol] 10.1 g/dL 13.0-16.5 [facility] Neutrophils (Bld) [#/Vol] 24.5 10*3/uL 2.0-7.7 [facility] Potassium [Moles/Vol] 3.9 mmol/L 3.5-5.1 [facility] Protein [Mass/Vol] 5.9 g/dL 6.4-8.2 [facility] Sodium [Moles/Vol] 146 mmol/L 136-145 [facility] WBC (Bld) [#/Vol] 30.6 10*3/uL 4.4-11.0 [facility] Basophil percentageOrdered B y: Maty Donnie on 04-13-2023 Basophil percentage 3.1 mg/dL 2.5-4.9 [facility] Blood leukocytes other/100 l eukocytesOrdered By: Wesley Martinez on 04-13-2023 WBC other/100 WBC (Bld) 1 % [facility] Blood lymphocytes/100 leukoc ytesOrdered By: Wesley Martinez on 04-13-2023 Lymphocytes/100 WBC (Bld) 4 % 19-41 [facility] Blood manual differential co mment interpretation (narrative result)Ordered By: Wesley Martinez on 04-13-2023 Manual differential comment Saman (Bld) [Interp] SCANNED [facility] Blood monocytes/100 leukocyt esOrdered By: Wesley Martinez on 04-13-2023 Monocytes/100 WBC (Bld) 8 % 0-10 [facility] Blood segmented neutrophils/ 100 leukocytesOrdered By: Wesley Martinez on 04-13-2023 Segmented neutrophils/100 WBC (Bld) 87 % 47-70 [facility] Determination of erythrocyte mean corpuscular volume (MCV)Ordered By: Wesley Martinez on 04-13-2023 MCV (RBC) [Entitic vol] 91.3 fL 80-94 [facility] Erythrocyte distribution wid th ratioOrdered By: Wesley Martinez on 04-13-2023 Erythrocyte distribution width (RBC) [Ratio] 14.6 % 11.6-14.6 [facility] Erythrocyte distribution wid th standard deviationOrdered By: Wesley Martinez on 04-13-2023 Erythrocyte distribution width (RBC) [Entitic vol] 49.1 fL 35.1-43.9 [facility] Hematocrit Auto (Bld) [Volum e fraction]Ordered By: Wesley Martinez on 04-13-2023 Hematocrit (Bld) [Volume fraction] 29.4 % 40-54 [facility] Immature granulocytes/100 WB C Auto (Bld)Ordered By: Wesley Martinez on 04-13-2023 Immature granulocytes/100 WBC (Bld) [employer]IN[employer] [facility] Comment on above: Previous reported re sult: 6.100 %Edited by: DYLAN on 04/13/23:0817 AMENDED REPORT 04/13/23 08 IM GRAN % previously reported as: 6.100 H % IG% - Immature Granulocytes (promyelocytes, myelocytes and metamyelocytes) > 1% indicates that a LEFT SHIFT is Present. Laboratory - Chemistry and C hemistry - challengeOrdered By: Wesley Martinez on 04-13-2023 Albumin/Globulin [Mass ratio] 0.5 {ratio} 0.9-2.4 [facility] ALP [Catalytic activity/Vol] 256 U/L 45-117 [facility] ALT [Catalytic activity/Vol] 259 U/L 16-61 [facility] CO2 [Moles/Vol] 23.0 mmol/L 21.0-32.0 [facility] Globulin (S) [Mass/Vol] 4.0 g/dL 2.2-4.2 [facility] Urea nitrogen/Creatinine [Mass ratio] 34.7 mg/mg 10-20 [facility] Laboratory - Hematology and Cell countsOrdered By: Wesley Martinez on 04-13-2023 MCH (RBC) [Entitic mass] 31.4 pg 27.0-32.0 [facility] MCHC (RBC) [Mass/Vol] 34.4 g/dL 32-36 [facility] Nucleated RBC/100 WBC (Bld) [Ratio] 0.2 % 0-5 [facility] Platelet mean volume (Bld) [Entitic vol] 10.9 fL 6.2-12.0 [facility] Platelets (Bld) [#/Vol] 68 10*3/uL 150-450 [facility] No Panel InformationOrdered By: Wesley Martinez on 04-13-2023 Estimated Creatinine Clearance Calc 39.96 ml/min [facility] Estimated GFR (MDRD) Amer 51 mL/min >60 [facility] Comment on above: GFR Calc Estimated GFR (MDRD) Non-Af Amer 42 mL/min >60 [facility] Comment on above: Non- GFR Calc RBC Auto (Bld) [#/Vol]Ordere d By: Wesley Martinez on 04-13-2023 RBC (Bld) [#/Vol] 3.22 10*6/uL 4.6-6.2 [facility] Review by pathologistOrdered By: Wesley Martinez on 04-13-2023 Pathologist review Saman (Unsp spec) [Interp] Antionette gil [facility] Pathologist review Saman (Unsp spec) [Interp] Reviewed [facility] Comment on above: Previous reported re sult: Antionette gil Edited by: RGOOD on 04/17/23:1015Neutrophilic leukocytosis with left shift.Normocytic anemia.Moderate Thrombocytopenia.Clinical correlation necessary.Cachorro Perez M.D. 04/17/23 AMENDED REPORT 04/17/23 1015 PATH REV previously reported as: Antionette gil Serum or plasma calcium kiya urement (mass/volume)Ordered By: Wesley Martinez on 04-13-2023 Calcium [Mass/Vol] 8.0 mg/dL 8.5-10.1 [facility] Serum or plasma creatinine m easurement (mass/volume)Ordered By: Wesley Martinez on 04-13-2023 Creatinine [Mass/Vol] 1.70 mg/dL 0.70-1.30 [facility] Comment on above: The validity of the calculated GFR & GFRAA in patients over 70 years has not been determined. Clinical correlation is essential. Serum or plasma urea nitroge n measurement (mass/volume)Ordered By: Wesley Martinez on 04-13-2023 Urea nitrogen [Mass/Vol] 59 mg/dL 7-18 [facility] Thin prep Papanicolaou smear with manual screeningOrdered By: Wesley Martinez on 04-13-2023 Thin prep Papanicolaou smear with manual screening 1.9 g/dL 3.2-5.0 [facility] Thin prep Papanicolaou smear with manual screening 109 U/L 15-37 [facility] Thin prep Papanicolaou smear with manual screening 6 5-15 [facility] Total cell countOrdered By: Wesley Martinez on 04-13-2023 Cells counted Molgen (Bld/Tiss) [#] 100 MANUAL DIFF [facility] Blood platelet adequacy dete ction by light microscopyOrdered By: Bubba Youngblood on 04-11-2023 Platelets LM Ql (Bld) MOD DEC ADEQ [facility] Blood band neutrophil count as percentage of total leukocytesOrdered By: Bubba Youngblood on 04-10-2023 Band form neutrophils/100 WBC (Bld) 15 % 0-5 [facility] Blood metamyelocytes/100 jose kocytesOrdered By: Bubba Youngblood on 04-10-2023 Metamyelocytes/100 WBC (Bld) 3 % 0-1 [facility] Blood promyelocytes/100 leuk ocytesOrdered By: Bubba Youngblood on 04-10-2023 Promyelocytes/100 WBC (Bld) 1 % 0-0 [facility] Laboratory - Hematology and Cell countsOrdered By: Bubba Youngblood on 04-10-2023 Myelocytes/100 WBC (Bld) 3 % 0-0 [facility] No Panel InformationOrdered By: Jeremy Wilhelm on 04-10-2023 D-Dimer Quantitative (PE/DVT) > 20.00 FEU/ug/m 0.27-0.49 [facility] Comment on above: D-Dimer ELEVATED (>0 .49): Additional studies and clinicalassessments are indicated to conclude diagnosis of:Deep Vein Thrombosis (DVT) or Pulmonary Embolism (PE)CRITICAL VALUE VERIFIED. CALLED TO [id number] [place].RESULTS READ BACK BY SAME. Smudge cell detectionOrdered By: Bubba Youngblood on 04-10-2023 Smudge cells LM Ql (Bld) RARE [facility] Activated partial thrombopla stin time (aPTT) in platelet poor plasma by coagulation aOrdered By: Teo Pelaez on 04-09-2023 aPTT Coag (PPP) [Time] 39.3 s 24.1-36.2 [facility] Basophil percentageOrdered B y: eWsley Martinez on 04-09-2023 Creatinine (U) [Mass/Vol] 221.00 mg/dL NO RANGE EST. [facility] Laboratory - Chemistry and C hemistry - challengeOrdered By: Wesley Martinez on 04-09-2023 Sodium (U) [Moles/Vol] 48 mmol/L Not Establ. [facility] Laboratory - CoagulationOrde red By: Teo Pelaez on 04-09-2023 INR Coag (Bld) [Relative time] 1.7 {INR} [facility] PT Coag (PPP) [Time] 19.7 s 11.7-14.9 [facility] No Panel InformationOrdered By: Teo Pelaez on 04-09-2023 Fibrinogen 512 mg/dl 203-444 [facility] Basophil percentageOrdered B y: Jalil Farrell on 04-08-2023 Lactate [Moles/Vol] 8.9 mmol/L 0.4-2.0 [facility] Comment on above: Critical Result(s) C alled at: 00:17:44 04/09/2023 by: Phyllis De La Rosa to Clarisa Cardenas. Results read back by same. Basophil percentage 50-100 SEEN /hpf 0-5 [facility] Bilirubin Test strip Ql (U)O rdered By: Jalil Farrell on 04-08-2023 Bilirubin Ql (U) Negative Negative [facility] Culture, urineOrdered By: Eve Farrell on 04-08-2023 Bacteria identified Cx Nom (U) Escherichia coli [facility] Bacteria identified Cx Nom (U) Escherichia coli [facility] Ketones Test strip Ql (U)Ord ered By: Jalil Farrell on 04-08-2023 Ketones Ql (U) Negative Negative [facility] Laboratory - Chemistry and C hemistry - challengeOrdered By: Jalil Farrell on 04-08-2023 CK [Catalytic activity/Vol] 176 U/L 39-308 [facility] Lipase [Catalytic activity/Vol] 21 U/L 13-75 [facility] Comment on above: Please note:LIPASE r evised reference range effective 22. New Lipase methodology. Expected to produce lower values than the previous assay method. NEW Reference Range: 13 - 75 U/L Laboratory - Microbiology an d Antimicrobial susceptibilityOrdered By: Jalil Farrell on 04-08-2023 Bacteria identified Cx Nom (Bld) Escherichia coli [facility] SARS-CoV-2 (COVID-19) RNA CASTRO+probe Ql (Unsp spec) [facility] Bacteria identified Cx Nom (Bld) Negative [facility] Bacteria identified Cx Nom (Bld) Escherichia coli [facility] SARS-CoV-2 (COVID-19) RNA CASTRO+probe Ql (Unsp spec) [facility] Lower GI hemoglobin IA Ql (S tl)Ordered By: Jalil Farrell on 04-08-2023 Stool Occult Blood (ALFONSO) Positive [facility] Stool Occult Blood (ALFONSO) Positive [facility] Mucus LM Ql (Urine sed)Order ed By: Jalil Farrell on 04-08-2023 Mucus Ql (Urine sed) 0 SEEN /hpf [facility] Nitrite Test strip Ql (U)Ord ered By: Jalil Farrell on 04-08-2023 Nitrite Ql (U) Positive Negative [facility] No Panel InformationOrdered By: Jalil Farrell on 04-08-2023 Urine RBC 10-25 SEEN /hpf 0-5 [facility] Protein Test strip Ql (U)Ord ered By: Jalil Farrell on 04-08-2023 Protein Ql (U) 30 mg/dl Negative [facility] Squamous epithelial cells de tection in urine sediment by light microscopyOrdered By: Jalil Farrell on 04-08-2023 Epithelial cells.squamous LM Ql (Urine sed) 0 SEEN /hpf 0-5 [facility] Urine blood detectionOrdered By: Jalil Farrell on 04-08-2023 RBC Ql (U) 50 /ul Negative [facility] Urine clarityOrdered By: Twyla Farrell on 04-08-2023 Clarity (U) Clear Clear [facility] Urine color determinationOrd ered By: Jalil Farrell on 04-08-2023 Color (U) Yellow Yellow [facility] Urine glucose detectionOrder ed By: Jalil Farrell on 04-08-2023 Glucose Ql (U) Normal mg/dl Normal [facility] Urine leukocyte esterase det ection by dipstickOrdered By: Jalil Farrell on 04-08-2023 Leukocyte esterase Test strip Ql (U) 100 /ul Negative [facility] Urine pHOrdered By: Jalil coronado on 04-08-2023 pH (U) 5.0 [pH] 5.0 - 8.0 [facility] Urine sediment bacteria coun t by microscopy (number/high power field)Ordered By: Jalil Farrell on 04-08-2023 Bacteria LM.HPF (Urine sed) [#/Area] 3 /[HPF] None Seen [facility] Urine specific gravity measu rementOrdered By: Jalil Farrell on 04-08-2023 Specific gravity (U) [Rel density] 1.015 1.002-1.030 [facility] Urine urobilinogen measureme ntOrdered By: Jalil Farrell on 04-08-2023 Urobilinogen Ql (U) Normal mg/dl Normal [facility] No Panel InformationOrdered By: DAYAMI Liz on 01-05-2023 Prostate Specific Antigen Screen < 0.01 ng/mL 0.00-4.00 [facility] Comment on above: This test was perfor med using the TPSA assay method for theHRBoss chemistry system. Values obtained with differentassay methods cannot be used interchangably.When changing PSA assays in the course of monitoring apatient, additional sequential testing should be carriedout to confirm baseline values. Absolute lymphocyte countOrd ered By: Abel Madrigal on 12-08-2022 Lymphocytes Auto (Unsp spec) [#/Vol] 1.26 10*3/uL 0.83-4.51 [facility] Basophil percentageOrdered B y: Abel Madrigal on 12-08-2022 Basophil percentage 3.1 mg/dL 2.5-4.9 [facility] Basophils/100 WBC (Bld) 0.3 % 0-1 [facility] Bilirubin [Mass/Vol] 0.70 mg/dL 0.20-1.00 [facility] Comment on above: For patients on eltr ombopag therapy, use of Dimension [place] TBIL is not recommended. Chloride [Moles/Vol] 111 mmol/L 98-107 [facility] Cholesterol [Mass/Vol] 166 mg/dL <200 [facility] Comment on above: <200 mg/dL Desirable 200-240 mg/dL Borderline >240 mg/dL High Risk Eosinophils/100 WBC (Bld) 6.0 % 0-5 [facility] Glucose [Mass/Vol] 88 mg/dL 74-106 [facility] Neutrophils (Bld) [#/Vol] 4.4 10*3/uL 2.0-7.7 [facility] Neutrophils/100 WBC (Bld) 62.5 % 47-70 [facility] Potassium [Moles/Vol] 4.5 mmol/L 3.5-5.1 [facility] Protein [Mass/Vol] 7.2 g/dL 6.4-8.2 [facility] Sodium [Moles/Vol] 141 mmol/L 136-145 [facility] Triglyceride [Mass/Vol] 110 mg/dL <199 [facility] Comment on above: The drugs N-Acetylcy steine and Metamizole may falsely depress this assay.Serum Triglycerides Reference Interval Normal <150 mg/dL Borderline high 150 - 199 mg/dL High 200 - 499 mg/dL Very High > or = 500 mg/dL WBC (Bld) [#/Vol] 7.0 10*3/uL 4.4-11.0 [facility] Blood erythrocytes count (nu mber/volume)Ordered By: Abel Madrigal on 12-08-2022 RBC (Bld) [#/Vol] 4.02 10*6/uL 4.6-6.2 [facility] Blood hemoglobin measurement (mass/volume)Ordered By: Abel Madrigal on 12-08-2022 Hemoglobin (Bld) [Mass/Vol] 13.0 g/dL 13.0-16.5 [facility] Blood lymphocytes/100 leukoc ytesOrdered By: Abel Madrigal on 12-08-2022 Lymphocytes/100 WBC (Bld) 18.1 % 19-41 [facility] Blood monocytes/100 leukocyt esOrdered By: Abel Madrigal on 12-08-2022 Monocytes/100 WBC (Bld) 12.5 % 0-10 [facility] Blood platelet mean volumeOr dered By: Abel Madrigal on 12-08-2022 Platelet mean volume (Bld) [Entitic vol] 8.8 fL 6.2-12.0 [facility] Determination of erythrocyte mean corpuscular volume (MCV)Ordered By: Abel Madrigal on 12-08-2022 MCV (RBC) [Entitic vol] 95.8 fL 80-94 [facility] Hematocrit Auto (Bld) [Volum e fraction]Ordered By: Abel Madrigal on 12-08-2022 Hematocrit (Bld) [Volume fraction] 38.5 % 40-54 [facility] Laboratory - Chemistry and C hemistry - challengeOrdered By: Abel Madrigal on 12-08-2022 ALP [Catalytic activity/Vol] 80 U/L 45-117 [facility] ALT [Catalytic activity/Vol] 31 U/L 16-61 [facility] CO2 [Moles/Vol] 27.0 mmol/L 21.0-32.0 [facility] Globulin (S) [Mass/Vol] 3.5 g/dL 2.2-4.2 [facility] Urea nitrogen/Creatinine [Mass ratio] 25.3 mg/mg 10-20 [facility] Laboratory - Hematology and Cell countsOrdered By: Abel Madrigal on 12-08-2022 Erythrocyte distribution width (RBC) [Entitic vol] 46.5 fL 35.1-43.9 [facility] Erythrocyte distribution width (RBC) [Ratio] 13.2 % 11.6-14.6 [facility] Immature granulocytes/100 WBC (Bld) 0.600 % 0.0-0.9 [facility] Comment on above: IG% - Immature Granu locytes (promyelocytes, myelocytes and metamyelocytes) > 1% indicates that a LEFT SHIFT is Present. MCH (RBC) [Entitic mass] 32.3 pg 27.0-32.0 [facility] Nucleated RBC/100 WBC (Bld) [Ratio] 0 % 0-5 [facility] MCHC Auto (RBC) [Mass/Vol]Or dered By: Abel Madrigal on 12-08-2022 MCHC (RBC) [Mass/Vol] 33.8 g/dL 32-36 [facility] No Panel InformationOrdered By: Abel Madrigal on 12-08-2022 Estimated GFR (MDRD) Amer 61 mL/min >60 [facility] Comment on above: GFR Calc Estimated GFR (MDRD) Non-Af Amer 50 mL/min >60 [facility] Comment on above: Non- GFR Calc Vitamin D 25-Hydroxy 58.9 ng/mL [facility] Comment on above: Vitamin D 25(OH) Sta tus Range Deficiency <20 ng/mL (50nmol/L) Insufficiency 20 - 30 ng/mL (50 - 75 nmol/L) Sufficiency 30 - 100 ng/mL (75 - 250 nmol/L) Toxicity >100 ng/mL (>250 nmol/L) Platelets bldOrdered By: Harry frank Madrigal on 12-08-2022 Platelets (Bld) [#/Vol] 354 10*3/uL 150-450 [facility] Serum or plasma albumin kiya urement (mass/volume)Ordered By: Abel Madrigal on 12-08-2022 Albumin [Mass/Vol] 3.7 g/dL 3.2-5.0 [facility] Serum or plasma albumin/glob ulin mass ratioOrdered By: Abel Madrigal on 12-08-2022 Albumin/Globulin [Mass ratio] 1.1 {ratio} 0.9-2.4 [facility] Serum or plasma calcium kiya urement (mass/volume)Ordered By: Abel Madrigal on 12-08-2022 Calcium [Mass/Vol] 9.3 mg/dL 8.5-10.1 [facility] Serum or plasma cholesterol in HDL measurement (mass/volume)Ordered By: Abel Madrigal on 12-08-2022 Cholesterol in HDL [Mass/Vol] 47 mg/dL >40 [facility] Comment on above: The drugs N-Acetylcy steine and Metamizole may falsely depress this assay. Reference Range HDL <40 mg/dL Low HDL Cholesterol HDL >or= 60 mg/dL High HDL Cholesterol Serum or plasma cholesterol in VLDL measurement (mass/volume)Ordered By: Abel Madrigal on 12-08-2022 Cholesterol in VLDL [Mass/Vol] 22 mg/dL 5-40 [facility] Serum or plasma creatinine m easurement (mass/volume)Ordered By: Abel Madrigal on 12-08-2022 Creatinine [Mass/Vol] 1.46 mg/dL 0.70-1.30 [facility] Comment on above: The validity of the calculated GFR & GFRAA in patients over 70 years has not been determined. Clinical correlation is essential. Serum or plasma low density lipoprotein (LDL) cholesterol measurement (mass/volume)Ordered By: Abel Madrigal on 12-08-2022 Cholesterol in LDL [Mass/Vol] 97 mg/dL 0-130 [facility] Serum or plasma urea nitroge n measurement (mass/volume)Ordered By: Abel Madrigal on 12-08-2022 Urea nitrogen [Mass/Vol] 37 mg/dL 7-18 [facility] Thin prep Papanicolaou smear with manual screeningOrdered By: Abel Madrigal on 12-08-2022 Thin prep Papanicolaou smear with manual screening 30 U/L 15-37 [facility] Thin prep Papanicolaou smear with manual screening 3 5-15 [facility] Absolute lymphocyte countOrd ered By: Dr. Acharya on 06-08-2022 Lymphocytes Auto (Unsp spec) [#/Vol] 1.52 10*3/uL 0.83-4.51 [facility] Basophil percentageOrdered B y: Dr. Acharya on 06-08-2022 Basophil percentage 3.2 mg/dL 2.5-4.9 [facility] Basophils/100 WBC (Bld) 0.3 % 0-1 [facility] Bilirubin [Mass/Vol] 1.00 mg/dL 0.20-1.00 [facility] Comment on above: For patients on eltr ombopag therapy, use of Dimension [place] TBIL is not recommended. Chloride [Moles/Vol] 110 mmol/L 98-107 [facility] Eosinophils/100 WBC (Bld) 7.8 % 0-5 [facility] Glucose [Mass/Vol] 94 mg/dL 74-106 [facility] Neutrophils (Bld) [#/Vol] 3.1 10*3/uL 2.0-7.7 [facility] Neutrophils/100 WBC (Bld) 52.7 % 47-70 [facility] Potassium [Moles/Vol] 4.4 mmol/L 3.5-5.1 [facility] Protein [Mass/Vol] 7.0 g/dL 6.4-8.2 [facility] Sodium [Moles/Vol] 138 mmol/L 136-145 [facility] WBC (Bld) [#/Vol] 5.9 10*3/uL 4.4-11.0 [facility] Blood erythrocytes count (nu mber/volume)Ordered By: Dr. Acharya on 06-08-2022 RBC (Bld) [#/Vol] 4.04 10*6/uL 4.6-6.2 [facility] Blood hemoglobin measurement (mass/volume)Ordered By: Dr. Acharya on 06-08-2022 Hemoglobin (Bld) [Mass/Vol] 13.1 g/dL 13.0-16.5 [facility] Blood lymphocytes/100 leukoc ytesOrdered By: Dr. Acharya on 06-08-2022 Lymphocytes/100 WBC (Bld) 25.9 % 19-41 [facility] Blood monocytes/100 leukocyt esOrdered By: Dr. Acharya on 06-08-2022 Monocytes/100 WBC (Bld) 13.1 % 0-10 [facility] Blood platelet mean volumeOr dered By: Dr. Acharya on 06-08-2022 Platelet mean volume (Bld) [Entitic vol] 8.5 fL 6.2-12.0 [facility] Determination of erythrocyte mean corpuscular volume (MCV)Ordered By: Dr. Acharya on 06-08-2022 MCV (RBC) [Entitic vol] 96.8 fL 80-94 [facility] Hematocrit Auto (Bld) [Volum e fraction]Ordered By: Dr. Acharya on 06-08-2022 Hematocrit (Bld) [Volume fraction] 39.1 % 40-54 [facility] Laboratory - Chemistry and C hemistry - challengeOrdered By: Dr. Acharya on 06-08-2022 ALP [Catalytic activity/Vol] 82 U/L 45-117 [facility] ALT [Catalytic activity/Vol] 30 U/L 16-61 [facility] CO2 [Moles/Vol] 24.0 mmol/L 21.0-32.0 [facility] Globulin (S) [Mass/Vol] 3.1 g/dL 2.2-4.2 [facility] Urea nitrogen/Creatinine [Mass ratio] 16.6 mg/mg 10-20 [facility] Laboratory - Hematology and Cell countsOrdered By: Dr. Acharya on 06-08-2022 Erythrocyte distribution width (RBC) [Entitic vol] 46.1 fL 35.1-43.9 [facility] Erythrocyte distribution width (RBC) [Ratio] 12.9 % 11.6-14.6 [facility] Immature granulocytes/100 WBC (Bld) 0.200 % 0.0-0.9 [facility] Comment on above: IG% - Immature Granu locytes (promyelocytes, myelocytes and metamyelocytes) > 1% indicates that a LEFT SHIFT is Present. MCH (RBC) [Entitic mass] 32.4 pg 27.0-32.0 [facility] Nucleated RBC/100 WBC (Bld) [Ratio] 0 % 0-5 [facility] MCHC Auto (RBC) [Mass/Vol]Or dered By: Dr. Acharya on 06-08-2022 MCHC (RBC) [Mass/Vol] 33.5 g/dL 32-36 [facility] No Panel InformationOrdered By: Dr. Acharya on 06-08-2022 Estimated GFR (MDRD) Amer 54 mL/min >60 [facility] Comment on above: GFR Calc Estimated GFR (MDRD) Non-Af Amer 44 mL/min >60 [facility] Comment on above: Non- GFR Calc Parathyroid Hormone (Intact) 50.7 pg/mL 18.4-80.1 [facility] Vitamin D 25-Hydroxy 64.8 ng/mL [facility] Comment on above: Vitamin D 25(OH) Sta tus Range Deficiency <20 ng/mL (50nmol/L) Insufficiency 20 - 30 ng/mL (50 - 75 nmol/L) Sufficiency 30 - 100 ng/mL (75 - 250 nmol/L) Toxicity >100 ng/mL (>250 nmol/L) Platelets bldOrdered By: Dr. Acharya on 06-08-2022 Platelets (Bld) [#/Vol] 319 10*3/uL 150-450 [facility] Serum or plasma albumin kiya urement (mass/volume)Ordered By: Dr. Acharya on 06-08-2022 Albumin [Mass/Vol] 3.9 g/dL 3.2-5.0 [facility] Serum or plasma albumin/glob ulin mass ratioOrdered By: Dr. Acharya on 06-08-2022 Albumin/Globulin [Mass ratio] 1.3 {ratio} 0.9-2.4 [facility] Serum or plasma calcium kiya urement (mass/volume)Ordered By: Dr. Acharya on 06-08-2022 Calcium [Mass/Vol] 9.3 mg/dL 8.5-10.1 [facility] Serum or plasma creatinine m easurement (mass/volume)Ordered By: Dr. Acharya on 06-08-2022 Creatinine [Mass/Vol] 1.63 mg/dL 0.70-1.30 [facility] Comment on above: The validity of the calculated GFR & GFRAA in patients over 70 years has not been determined. Clinical correlation is essential. Serum or plasma urea nitroge n measurement (mass/volume)Ordered By: Dr. Acharya on 06-08-2022 Urea nitrogen [Mass/Vol] 27 mg/dL 7-18 [facility] Thin prep Papanicolaou smear with manual screeningOrdered By: Dr. Acharya on 06-08-2022 Thin prep Papanicolaou smear with manual screening 25 U/L 15-37 [facility] Thin prep Papanicolaou smear with manual screening 4 5-15 [facility] Urine creatinine measurement (mass/volume)Ordered By: Dr. Acharya on 06-08-2022 Creatinine (U) [Mass/Vol] 165.00 mg/dL NO RANGE EST. [facility] Urine protein measurement (m ass/volume)Ordered By: Dr. Acharya on 06-08-2022 Protein (U) [Mass/Vol] 6.2 mg/dL 0.0-11.8 [facility] Urine protein/creatinine mas s ratioOrdered By: Dr. Acharya on 06-08-2022 Protein/Creatinine (U) [Mass ratio] 38 mg/g CRE 0-200 [facility] No Panel InformationOrdered By: DAYAMI Liz on 04-07-2022 Prostate Specific Antigen Total < 0.01 ng/mL 0.0-4.0 [facility] Comment on above: This test was perfor med using the TPSA assay method for the[facility]. Values obtained with differentassay methods cannot be used interchangably.When changing PSA assays in the course of monitoring apatient, additional sequential testing should be carriedout to confirm baseline values. Absolute lymphocyte countOrd ered By: Dr. Sanders on 02-28-2022 Lymphocytes Auto (Unsp spec) [#/Vol] 1.83 10*3/uL 0.83-4.51 [facility] Basophil percentageOrdered B y: Dr. Sanders on 02-28-2022 Basophils/100 WBC (Bld) 0.2 % 0-1 [facility] Bilirubin [Mass/Vol] 0.70 mg/dL 0.20-1.00 [facility] Comment on above: For patients on eltr ombopag therapy, use of Dimension [place] TBIL is not recommended. Eosinophils/100 WBC (Bld) 0.2 % 0-5 [facility] Neutrophils (Bld) [#/Vol] 11.6 10*3/uL 2.0-7.7 [facility] Neutrophils/100 WBC (Bld) 78.5 % 47-70 [facility] Protein [Mass/Vol] 6.9 g/dL 6.4-8.2 [facility] WBC (Bld) [#/Vol] 14.8 10*3/uL 4.4-11.0 [facility] Blood erythrocytes count (nu mber/volume)Ordered By: Dr. Sanders on 02-28-2022 RBC (Bld) [#/Vol] 4.11 10*6/uL 4.6-6.2 [facility] Blood hemoglobin measurement (mass/volume)Ordered By: Dr. Sanders on 02-28-2022 Hemoglobin (Bld) [Mass/Vol] 13.3 g/dL 13.0-16.5 [facility] Blood lymphocytes/100 leukoc ytesOrdered By: Dr. Sanders on 02-28-2022 Lymphocytes/100 WBC (Bld) 12.4 % 19-41 [facility] Blood monocytes/100 leukocyt esOrdered By: Dr. Sanders on 02-28-2022 Monocytes/100 WBC (Bld) 7.4 % 0-10 [facility] Blood platelet mean volumeOr dered By: Dr. Sanders on 02-28-2022 Platelet mean volume (Bld) [Entitic vol] 8.8 fL 6.2-12.0 [facility] Determination of erythrocyte mean corpuscular volume (MCV)Ordered By: Dr. Sanders on 02-28-2022 MCV (RBC) [Entitic vol] 97.6 fL 80-94 [facility] Direct bilirubinOrdered By: Dr. Sanders on 02-28-2022 Bilirubin.direct [Mass/Vol] 0.22 mg/dL 0.00-0.30 [facility] Hematocrit Auto (Bld) [Volum e fraction]Ordered By: Dr. Sanders on 02-28-2022 Hematocrit (Bld) [Volume fraction] 40.1 % 40-54 [facility] Laboratory - Chemistry and C hemistry - challengeOrdered By: Dr. Sanders on 02-28-2022 ALP [Catalytic activity/Vol] 70 U/L 45-117 [facility] ALT [Catalytic activity/Vol] 37 U/L 16-61 [facility] Globulin (S) [Mass/Vol] 3.4 g/dL 2.2-4.2 [facility] Laboratory - Hematology and Cell countsOrdered By: Dr. Sanders on 02-28-2022 Erythrocyte distribution width (RBC) [Entitic vol] 50.0 fL 35.1-43.9 [facility] Erythrocyte distribution width (RBC) [Ratio] 14.0 % 11.6-14.6 [facility] Immature granulocytes/100 WBC (Bld) 1.300 % 0.0-0.9 [facility] Comment on above: IG% - Immature Granu locytes (promyelocytes, myelocytes and metamyelocytes) > 1% indicates that a LEFT SHIFT is Present. MCH (RBC) [Entitic mass] 32.4 pg 27.0-32.0 [facility] Nucleated RBC/100 WBC (Bld) [Ratio] 0 % 0-5 [facility] MCHC Auto (RBC) [Mass/Vol]Or dered By: Dr. Sanders on 02-28-2022 MCHC (RBC) [Mass/Vol] 33.2 g/dL 32-36 [facility] Platelets bldOrdered By: Dr. Sanders on 02-28-2022 Platelets (Bld) [#/Vol] 336 10*3/uL 150-450 [facility] Serum or plasma C reactive p rotein measurement (mass/volume)Ordered By: Dr. Sanders on 02-28-2022 CRP [Mass/Vol] mg/L 0.0-3.0 [facility] Comment on above: C-Reactive Protein ( CRP) provides useful information for thediagnosis, therapy and monitoring of inflammatory processesand associated diseases. For the evaluation of Relative Riskfor Cardiovascular Disease, a High Sensitivity CRP (HSCRP)should be ordered. Serum or plasma albumin kiya urement (mass/volume)Ordered By: Dr. Sanders on 02-28-2022 Albumin [Mass/Vol] 3.5 g/dL 3.2-5.0 [facility] Serum or plasma calcium kiya urement (mass/volume)Ordered By: Dr. Sanders on 02-28-2022 Calcium [Mass/Vol] 9.2 mg/dL 8.5-10.1 [facility] Thin prep Papanicolaou smear with manual screeningOrdered By: Dr. Sanders on 02-28-2022 Thin prep Papanicolaou smear with manual screening 16 U/L 15-37 [facility] Office Visit (Internal Medic ine)on 01-10-2022 Follow-up visit Diagnoses/Problems Assessed Low back pain (724.2) (M54.50) Lumbar radicular pain (724.4) (M54.16) Patient Discussion/Summary F/U BEFORE Provider Impressions CLINICALLY DOING BETTER, CONT. SAME Chief Complaint PT HERE TODAY TO F/U AFTER XRAY. PT STATES HE IS FEELING BETTER History of Present IllnessHERE FOR F/U FEELS BETTER Review of Systems Constitutional: not feeling poorly, no fever, no recent weight gain and no recent weight loss. Eyes: no blurred vision and no diplopia. ENT: no hearing loss, no tinnitus, no earache, no sore throat, no hoarseness and no swollen glands in the neck. Cardiovascular: no chest pain, no tightness or heavy pressure, no shortness of breath, no palpitations and no lower extremity edema. Respiratory: no cough, not coughing up sputum and no wheezing that is consistent with asthma. Gastrointestinal: no change in bowel habits, no diarrhea, no constipation, no bloody stools, no nausea, no vomiting, no abdominal pain, no signs and symptoms of ulcer disease, no zahida colored stools and no intolerance to fatty foods. Genitourinary: no urinary frequency, no dysuria, no hematuria, no burning sensation during urination, urinary stream is not smaller and urinary stream does not start and stop. Musculoskeletal: no arthralgias, no joint stiffness, no muscle weakness, no back pain and no difficulty walking. Skin: no rashes, no change in skin color and pigmentation, no skin lesions and no skin lumps. Neurological: no headaches, no dizziness, no seizures, no tingling, no numbness, no signs and symptoms of stroke and no limb weakness. Psychiatric: no confusion, no memory lapses or loss, no depression and no sleep disturbances. Endocrine: no goiter, no thyroid disorder, no diabetes mellitus, no excessive thirst, no dry skin, no cold intolerance, no heat intolerance and no increased urinary frequency. Hematologic/Lymphatic: is not slow to heal, does not bleed easily, does not bruise easily, no thrombophlebitis, no anemia and no history of blood transfusion. All other systems have been reviewed and are negative for complaint. Active Problems Problems Acute frontal sinusitis (461.1) (J01.10) Advance directive discussed with patient (V65.49) (Z71.89) Anemia (285.9) (D64.9) Anxiety and depression (300.00,311) (F41.9,F32.A) CAD (coronary artery disease) (414.00) (I25.10) Chronic kidney failure, stage 3 (moderate) (585.3) (N18.30) Depression screening negative (V79.0) (Z13.31) Encounter for immunization (V03.89) (Z23) Erythema migrans (Lyme disease) (088.81) (A69.20) GERD (gastroesophageal reflux disease) (530.81) (K21.9) H/O prostatectomy (V45.89) (Z90.79) HTN (hypertension) (401.9) (I10) Hypophosphatemia (275.3) (E83.39) Low back pain (724.2) (M54.50) Lumbar radicular pain (724.4) (M54.16) Malignant neoplasm of prostate (185) (C61) Muscle cramps (729.82) (R25.2) Peripheral neuropathy (356.9) (G62.9) Pre-syncope (780.2) (R55) Sarcoidosis (135) (D86.9) URI (upper respiratory infection) (465.9) (J06.9) Vitamin D deficiency (268.9) (E55.9) Past Medical History Problems H/O non-ST elevation myocardial infarction (NSTEMI) (412) (I25.2) History of kidney stones (V13.01) (Z87.442) History of Screening PSA (prostate specific antigen) (V76.44) (Z12.5) 4.03 - [facility] Surgical History Problems History of Cardiac catheterization with stent placement History of Colonoscopy WNL History of Cystoscopy DR. RUFUS DOMÍNGUEZ History of Lithotripsy DR. RUFUS DOMÍNGUEZ History of Prostatectomy DR. RUFUS DOMÍNGUEZ History of Shoulder surgery LEFT History of [place] tooth extraction Family History Mother Family history of Alzheimer's disease (V17.2) (Z82.0) Father Family history of malignant neoplasm of prostate (V16.42) (Z80.42) Family history of malignant neoplasm of skin (V16.8) (Z80.8) Sister Family history of malignant neoplasm of skin (V16.8) (Z80.8) Brother Family history of malignant neoplasm of prostate (V16.42) (Z80.42) Social History Problems Denies alcohol consumption (V49.89) (Z78.9) Does not use illicit drugs (V49.89) (Z78.9) Non-smoker (V49.89) (Z78.9) Patient has healthcare proxy and living will (V49.89) (Z78.9) Allergies Medication No Known Drug Allergies Recorded By: Paul Brennan; 04/03/2019 9:57:06 AM Current Meds Medication NameInstruction amLODIPine Besylate 2.5 MG Oral TabletTAKE 1 TABLET TWICE DAILY. Aspirin 81 MG Oral Tablet Delayed ReleaseTake 1 tablet daily Famotidine 20 MG Oral TabletTAKE 1 TABLET DAILY DIRECTED. Lipitor 40 MG Oral TabletTAKE 1 TABLET EVERY OTHER DAY Losartan Potassium 100 MG Oral Tablet Multi-Vitamins TABSTAKE 1 TABLET DAILY. Phosphorus Supplement 280-160-250 MG Oral PacketTAKE DIRECTED. Plavix 75 MG Oral TabletTake 1 tablet daily Qvar RediHaler 40 MCG/ACT Inhalation Aerosol Breath Activated2 puffs daily Vitamin C TABSTAKE 1 TABLE (more content not included)... Normal [employer] Tobacco Screening.on 022 Fall risk assessment a) No falls within the last year [facility] Internal Medicine Work Phone: Tobacco use status CP b) No [facility] Internal Medicine Work Phone: Office Visit (Internal Medic ine)on 01-04-2022 Follow-up visit Diagnoses/Problems Assessed Low back pain (724.2) (M54.50) Lumbar radicular pain (724.4) (M54.16) Malignant neoplasm of prostate (185) (C61) HTN (hypertension) (401.9) (I10) Orders Low back pain Start: Cyclobenzaprine HCl - 10 MG Oral Tablet; TAKE 1 TABLET 3 TIMES DAILY NEEDED Rx By: Abel Madrigal; Dispense: 5 Days ; #:15 Tablet; Refill: 0;For: Low back pain; CRISTÓBAL = N; Verified Transmission to [employer] [facility]; Last Updated By: [facility]; 01/04/2022 9:21:47 AM Xray Lumbosacral Spine Min 4 View; Status:Hold For - Scheduling,Retrospective Authorization; Requested for:04Jan2022; Perform: Radiology Services Imaging; Due:[id number]; Last Updated By:Radha De Souza; 01/04/2022 9:52:10 AM;Ordered; For:Low back pain; Ordered By:Abel Madrigal; Radiologist to Determine Optimal Study : Y What are the patient's signs and symptoms? : [1] Low back pain Start: predniSONE 10 MG Oral Tablet; TAKE 1 TABLET 3 TIMES DAILY Rx By: Abel Madrigal; Dispense: 5 Days ; #:15 Tablet; Refill: 0;For: Low back pain; CRISTÓBAL = N; Verified Transmission to [employer] [facility]; Last Updated By: [facility]; 01/04/2022 9:21:36 AM Administered: Dexamethasone Sodium Phosphate 4 MG/ML Injection Solution Rx By: Abel Madrigal;For: Low back pain; Dose of 1 ML; Intramuscular; CRISTÓBAL = N; Administered by: Nakul Clement [employer]: 01/04/2022 9:39:00 AM; Last Updated By: Nakul Clement; 01/04/2022 9:39:54 AM Patient Discussion/Summary LS SPINE XRAY F/U 1 WEEK Chief Complaint C/O LOW BACK PAIN RADIATING INTO RT LEG. History of Present IllnessPT C/O LBP WITH RADIATION TO THE RIGHT LE, AFTER RACKING FOR 5 DAYS SEVERITY: MODERATE CHARACTERISTIC: ACUTE EXACERBATION FACTOR: EXERTION RELIEVING FACTOR: REST ASSOCIATED SYMPTOMS:TINGLING RIGHT LE PRIOR TX: TYLRNOL, ICEING Review of Systems ALL OTHER SYSTEMS HAVE BEEN REVIEWED AND ARE NEGATIVE Active Problems Problems Acute frontal sinusitis (461.1) (J01.10) Advance directive discussed with patient (V65.49) (Z71.89) Anemia (285.9) (D64.9) Anxiety and depression (300.00,311) (F41.9,F32.A) CAD (coronary artery disease) (414.00) (I25.10) Chronic kidney failure, stage 3 (moderate) (585.3) (N18.30) Depression screening negative (V79.0) (Z13.31) Encounter for immunization (V03.89) (Z23) Erythema migrans (Lyme disease) (088.81) (A69.20) GERD (gastroesophageal reflux disease) (530.81) (K21.9) H/O prostatectomy (V45.89) (Z90.79) HTN (hypertension) (401.9) (I10) Hypophosphatemia (275.3) (E83.39) Malignant neoplasm of prostate (185) (C61) Muscle cramps (729.82) (R25.2) Peripheral neuropathy (356.9) (G62.9) Pre-syncope (780.2) (R55) Sarcoidosis (135) (D86.9) URI (upper respiratory infection) (465.9) (J06.9) Vitamin D deficiency (268.9) (E55.9) Past Medical History Problems H/O non-ST elevation myocardial infarction (NSTEMI) (412) (I25.2) History of kidney stones (V13.01) (Z87.442) History of Screening PSA (prostate specific antigen) (V76.44) (Z12.5) 4.03 [facility] Surgical History Problems History of Cardiac catheterization with stent placement History of Colonoscopy WNL History of Cystoscopy DR. RUFUS DOMÍNGUEZ History of Lithotripsy DR. RUFUS DOMÍNGUEZ History of Prostatectomy DR. RUFUS DOMÍNGUEZ History of Shoulder surgery LEFT History of [place] tooth extraction Family History Mother Family history of Alzheimer's disease (V17.2) (Z82.0) Father Family history of malignant neoplasm of prostate (V16.42) (Z80.42) Family history of malignant neoplasm of skin (V16.8) (Z80.8) Sister Family history of malignant neoplasm of skin (V16.8) (Z80.8) Brother Family history of malignant neoplasm of prostate (V16.42) (Z80.42) Social History Problems Denies alcohol consumption (V49.89) (Z78.9) Does not use illicit drugs (V49.89) (Z78.9) Non-smoker (V49.89) (Z78.9) Patient has healthcare proxy and living will (V49.89) (Z78.9) Allergies Medication No Known Drug Allergies Recorded By: Paul Brennan; 04/03/2019 9:57:06 AM Current Meds Medication NameInstruction amLODIPine Besylate 2.5 MG Oral TabletTAKE 1 TABLET TWICE DAILY. Aspirin 81 MG Oral Tablet Delayed ReleaseTake 1 tablet daily Famotidine 20 MG Oral TabletTAKE 1 TABLET DAILY DIRECTED. Lipitor 40 MG Oral TabletTAKE 1 TABLET EVERY OTHER DAY Losartan Potassium 100 MG Oral Tablet Multi-Vitamins TABSTAKE 1 TABLET DAILY. Phosphorus Supplement 280-160-250 MG Oral PacketTAKE DIRECTED. Plavix 75 MG Oral TabletTake 1 tablet daily Qvar RediHaler 40 MCG/ACT Inhalation Aerosol Breath Activated2 puffs daily Vitamin C TABSTAKE 1 TABLET DAILY. Vitamin D (Ergocalciferol) 1.25 MG (54149 UT) Oral Capsuletake 1 capsule every 2 weeks Vitals Vital Signs Recorded: 04Jan2022 08:58AM Heart Rate69 Temgcjkw650 Mcgqrbbqg46 Height5 ft 10 in Nzajfp976 lb BMI Dyhvgqpdbq93.11 kg/m2 BSA Calculated1.94 (more content not included)... Normal [employer] Tobacco Screening.on 022 Fall risk assessment a) No falls within the last year [facility] Internal Medicine Work Phone: Tobacco use status [facility] b) No [facility] Internal Medicine Work Phone: Office Visit (Internal Medic ine)on 12-12-2021 Follow-up visit Diagnoses/Problems Health Maintenance/Risks Encounter for preventive health examination (V70.0) (Z00.00) Assessed Chronic kidney failure, stage 3 (moderate) (585.3) (N18.30) HTN (hypertension) (401.9) (I10) Vitamin D deficiency (268.9) (E55.9) Sarcoidosis (135) (D86.9) Orders Health Maintenance Start: Qvar RediHaler 40 MCG/ACT Inhalation Aerosol Breath Activated; 2 puffs daily Rx By: Abel Madrigal; Dispense: 0 Days ; #:1 X 10.6 GM Inhaler; Refill: 5;For: Health Maintenance; CRISTÓBAL = N; Record HTN (hypertension) Renew: amLODIPine Besylate 2.5 MG Oral Tablet; TAKE 1 TABLET TWICE DAILY Rx By: Abel Madrigal; Dispense: 30 Days ; #:60 Tablet; Refill: 11;For: HTN (hypertension); CRISTÓBAL = N; Sent To: [facility]77 Patient Discussion/Summary F/U 6 MO CMP CBC Provider Impressions MONITOR BP GOAL BP LOWER THAN 130/80 LOW SALT EXERCISE DAILY AVOID NSAIDS INCREASE FLUID INTAKE FLU SHOT TODAY MDM 1) COMPLEXITY: MORE THAN 1 STABLE CHRONIC CONDITION ADDRESSED 2)DATA: TESTS INTERPRETED AND OR ORDERED, TOOK INDEPENDENT HISTORY OR RECORDS REVIEWED 3)RISK: MODERATE RISK DUE TO NATURE OF MEDICAL CONDITIONS/COMORBIDITY OR MEDICATIONS ORDERED OR SURGICAL OR PROCEDURE REFERRAL, . Chief Complaint 6 MO FU LAB TODAY PT WAS SEEN IN ER FOR INDIGESTION BUT EVERYTHING CHECKED OUT OK History of Present IllnessHERE FOR F/U WITH LAB FEELS FINE POST ER, DID NOT HAVE PNEUMONIA JUST SCAR OF SARCOIDOSIS Review of Systems Constitutional: not feeling poorly, no fever, no recent weight gain and no recent weight loss. Eyes: no blurred vision and no diplopia. ENT: no hearing loss, no tinnitus, no earache, no sore throat, no hoarseness and no swollen glands in the neck. Cardiovascular: no chest pain, no tightness or heavy pressure, no shortness of breath, no palpitations and no lower extremity edema. Respiratory: no cough, not coughing up sputum and no wheezing that is consistent with asthma. Gastrointestinal: no change in bowel habits, no diarrhea, no constipation, no bloody stools, no nausea, no vomiting, no abdominal pain, no signs and symptoms of ulcer disease, no zahida colored stools and no intolerance to fatty foods. Genitourinary: no urinary frequency, no dysuria, no hematuria, no burning sensation during urination, urinary stream is not smaller and urinary stream does not start and stop. Musculoskeletal: no arthralgias, no joint stiffness, no muscle weakness, no back pain and no difficulty walking. Skin: no rashes, no change in skin color and pigmentation, no skin lesions and no skin lumps. Neurological: no headaches, no dizziness, no seizures, no tingling, no numbness, no signs and symptoms of stroke and no limb weakness. Psychiatric: no confusion, no memory lapses or loss, no depression and no sleep disturbances. Endocrine: no goiter, no thyroid disorder, no diabetes mellitus, no excessive thirst, no dry skin, no cold intolerance, no heat intolerance and no increased urinary frequency. Hematologic/Lymphatic: is not slow to heal, does not bleed easily, does not bruise easily, no thrombophlebitis, no anemia and no history of blood transfusion. All other systems have been reviewed and are negative for complaint. Active Problems Problems Acute frontal sinusitis (461.1) (J01.10) Advance directive discussed with patient (V65.49) (Z71.89) Anemia (285.9) (D64.9) Anxiety and depression (300.00,311) (F41.9,F32.A) CAD (coronary artery disease) (414.00) (I25.10) Chronic kidney failure, stage 3 (moderate) (585.3) (N18.30) Depression screening negative (V79.0) (Z13.31) Encounter for immunization (V03.89) (Z23) Erythema migrans (Lyme disease) (088.81) (A69.20) GERD (gastroesophageal reflux disease) (530.81) (K21.9) H/O prostatectomy (V45.89) (Z90.79) HTN (hypertension) (401.9) (I10) Hypophosphatemia (275.3) (E83.39) Malignant neoplasm of prostate (185) (C61) Muscle cramps (729.82) (R25.2) Peripheral neuropathy (356.9) (G62.9) Pre-syncope (780.2) (R55) URI (upper respiratory infection) (465.9) (J06.9) Vitamin D deficiency (268.9) (E55.9) Past Medical History Problems H/O non-ST elevation myocardial infarction (NSTEMI) (412) (I25.2) History of kidney stones (V13.01) (Z87.442) History of Screening PSA (prostate specific antigen) (V76.44) (Z12.5) 4.03 - [facility] Surgical History Problems History of Cardiac catheterization with stent placement History of Colonoscopy WNL History of Cystoscopy DR. RUFUS DOMÍNGUEZ History of Lithotripsy DR. RUFUS DOMÍNGUEZ History of Prostatectomy DR. RUFUS DOMÍNGUEZ History of Shoulder surgery LEFT History of [place] tooth extraction Family History Mother Family history of Alzheimer's disease (V17.2) (Z82.0) Father Family history of malignant neoplasm of prostate (V16.42) (Z80.42) Family history of malignant neoplasm of skin (V16.8) (Z80.8) Sister Family history of malignant neoplas (more content not included)... Normal [employer] Tobacco Screening.on 022 Fall risk assessment a) No falls within the last year [facility] Internal Medicine Work Phone: Tobacco use status [facility] b) No [facility] Internal Medicine Work Phone: Absolute lymphocyte counton 12-08-2021 Lymphocytes Auto (Unsp spec) [#/Vol] 1.06 10*3/uL 0.83-4.51 [facility] Work Phone: Basophil percentageon 2021 Basophils/100 WBC (Bld) 0.1 % 0-1 [facility] Work Phone: Chloride [Moles/Vol] 106 mmol/L 98-107 [facility] Work Phone: [phone] Eosinophils/100 WBC (Bld) 0.2 % 0-5 [facility] Work Phone: Glucose [Mass/Vol] 130 mg/dL 74-106 [facility] Work Phone: Comment on above: Fasting Glucose resu lt greater than or equal to 126 mg/dL suggests DIABETES MELLITUS per A.D.A. criteria. Neutrophils (Bld) [#/Vol] 11.3 10*3/uL 2.0-7.7 [facility] Work Phone: Neutrophils/100 WBC (Bld) 84.4 % 47-70 [facility] Work Phone: Potassium [Moles/Vol] 4.4 mmol/L 3.5-5.1 [facility] Work Phone: Sodium [Moles/Vol] 137 mmol/L 136-145 [facility] Work Phone: [phone] WBC (Bld) [#/Vol] 13.4 10*3/uL 4.4-11.0 [facility] Work Phone: Blood erythrocytes count (nu mber/volume)on 12-08-2021 RBC (Bld) [#/Vol] 4.22 10*6/uL 4.6-6.2 [facility] Work Phone: Blood hemoglobin measurement (mass/volume)on 12-08-2021 Hemoglobin (Bld) [Mass/Vol] 13.5 g/dL 13.0-16.5 [facility] Work Phone: Blood lymphocytes/100 leukoc yteson 12-08-2021 Lymphocytes/100 WBC (Bld) 7.9 % 19-41 [facility] Work Phone: Blood monocytes/100 leukocyt eson 12-08-2021 Monocytes/100 WBC (Bld) 6.9 % 0-10 [facility] Work Phone: Blood platelet mean volumeon 12-08-2021 Platelet mean volume (Bld) [Entitic vol] 8.6 fL 6.2-12.0 [facility] Work Phone: [phone] Determination of erythrocyte mean corpuscular volume (MCV)on 12-08-2021 MCV (RBC) [Entitic vol] 93.1 fL 80-94 [facility] Work Phone: Hematocrit Auto (Bld) [Volum e fraction]on 12-08-2021 Hematocrit (Bld) [Volume fraction] 39.3 % 40-54 [facility] Work Phone: Laboratory - Chemistry and C hemistry - challengeon 12-08-2021 CO2 [Moles/Vol] 25.0 mmol/L 21.0-32.0 [facility] Work Phone: Urea nitrogen/Creatinine [Mass ratio] 16.2 mg/mg 10-20 [facility] Work Phone: Laboratory - Hematology and Cell countson 12-08-2021 Erythrocyte distribution width (RBC) [Entitic vol] 46.7 fL 35.1-43.9 [facility] Work Phone: Erythrocyte distribution width (RBC) [Ratio] 13.8 % 11.6-14.6 [facility] Work Phone: Immature granulocytes/100 WBC (Bld) 0.500 % 0.0-0.9 [facility] Work Phone: Comment on above: IG% - Immature Granu locytes (promyelocytes, myelocytes and metamyelocytes) > 1% indicates that a LEFT SHIFT is Present. MCH (RBC) [Entitic mass] 32.0 pg 27.0-32.0 [facility] Work Phone: Nucleated RBC/100 WBC (Bld) [Ratio] 0 % 0-5 [facility] Work Phone: MCHC Auto (RBC) [Mass/Vol]on 12-08-2021 MCHC (RBC) [Mass/Vol] 34.4 g/dL 32-36 [facility] Work Phone: No Panel Informationon 12-08 Troponin I High Sensitivity 10 pg/mL 3.0-78.0 [facility] Work Phone: Comment on above: Please Note: New Jessie t Units and Gender Specific Reference Ranges. For more information see Policy Stat Procedure [place] High Sensitivity Troponin (TNIH) and attachments. Estimated Creatinine Clearance Calc 43.09 ml/min [facility] Work Phone: Estimated GFR (MDRD) Amer 55 mL/min >60 [facility] Work Phone: Comment on above: GFR Calc Estimated GFR (MDRD) Non-Af Amer 45 mL/min >60 [facility] Work Phone: Comment on above: Non- GFR Calc Platelets bldon 12-08-2021 Platelets (Bld) [#/Vol] 335 10*3/uL 150-450 [facility] Work Phone: Serum or plasma calcium kiya urement (mass/volume)on 12-08-2021 Calcium [Mass/Vol] 9.9 mg/dL 8.5-10.1 [facility] Work Phone: Serum or plasma creatinine m easurement (mass/volume)on 12-08-2021 Creatinine [Mass/Vol] 1.60 mg/dL 0.70-1.30 [facility] Work Phone: Comment on above: The validity of the calculated GFR & GFRAA in patients over 70 years has not been determined. Clinical correlation is essential. Serum or plasma urea nitroge n measurement (mass/volume)on 12-08-2021 Urea nitrogen [Mass/Vol] 26 mg/dL 7-18 [facility] Work Phone: Thin prep Papanicolaou smear with manual screeningon 12-08-2021 Thin prep Papanicolaou smear with manual screening 6 5-15 [facility] Work Phone: Basophil percentageon 2021 Bilirubin [Mass/Vol] 1.00 mg/dL 0.20-1.00 [facility] Work Phone: Comment on above: For patients on eltr ombopag therapy, use of Dimension [place] TBIL is not recommended. Chloride [Moles/Vol] 108 mmol/L 98-107 [facility] Work Phone: Cholesterol [Mass/Vol] 182 mg/dL <200 [facility] Work Phone: Comment on above: <200 mg/dL Desirable 200-240 mg/dL Borderline >240 mg/dL High Risk Glucose [Mass/Vol] 90 mg/dL 74-106 [facility] Work Phone: Potassium [Moles/Vol] 4.6 mmol/L 3.5-5.1 [facility] Work Phone: Protein [Mass/Vol] 7.5 g/dL 6.4-8.2 [facility] Work Phone: Sodium [Moles/Vol] 140 mmol/L 136-145 [facility] Work Phone: Triglyceride [Mass/Vol] 158 mg/dL <199 [facility] Work Phone: Comment on above: The drugs N-Acetylcy steine and Metamizole may falsely depress this assay.Serum Triglycerides Reference Interval Normal <150 mg/dL Borderline high 150 - 199 mg/dL High 200 - 499 mg/dL Very High > or = 500 mg/dL Erythrocyte sedimentation ra yusef 12-02-2021 ESR (Bld) [Velocity] 10 mm/h 0-20 [facility] Work Phone: Iron measurement (mass/mass) on 12-02-2021 Iron (Unsp spec) [Mass/Mass] 102 ug/dL 65-175 [facility] Work Phone: Laboratory - Chemistry and C hemistry - challengeon 12-02-2021 ALP [Catalytic activity/Vol] 80 U/L 45-117 [facility] Work Phone: ALT [Catalytic activity/Vol] 38 U/L 16-61 [facility] Work Phone: CO2 [Moles/Vol] 25.0 mmol/L 21.0-32.0 [facility] Work Phone: Globulin (S) [Mass/Vol] 3.6 g/dL 2.2-4.2 [facility] Work Phone: Urea nitrogen/Creatinine [Mass ratio] 18.3 mg/mg 10-20 [facility] Work Phone: No Panel Informationon 12-02 Estimated GFR (MDRD) Amer 58 mL/min >60 [facility] Work Phone: Comment on above: GFR Calc Estimated GFR (MDRD) Non-Af Amer 48 mL/min >60 [facility] Work Phone: Comment on above: Non- GFR Calc Thyroid Stimulating Hormone (TSH) 2.04 uIU/mL 0.358-3.74 [facility] Work Phone: Total Iron Binding Capacity 300 ug/dL 250-450 [facility] Work Phone: Vitamin D 25-Hydroxy 58.8 ng/mL [facility] Work Phone: Comment on above: Vitamin D 25(OH) Sta tus Range Deficiency <20 ng/mL (50nmol/L) Insufficiency 20 - 30 ng/mL (50 - 75 nmol/L) Sufficiency 30 - 100 ng/mL (75 - 250 nmol/L) Toxicity >100 ng/mL (>250 nmol/L) Serum or plasma C reactive p rotein measurement (mass/volume)on 12-02-2021 CRP [Mass/Vol] mg/L 0.0-3.0 [facility] Work Phone: Comment on above: C-Reactive Protein ( CRP) provides useful information for thediagnosis, therapy and monitoring of inflammatory processesand associated diseases. For the evaluation of Relative Riskfor Cardiovascular Disease, a High Sensitivity CRP (HSCRP)should be ordered. Serum or plasma albumin kiya urement (mass/volume)on 12-02-2021 Albumin [Mass/Vol] 3.9 g/dL 3.2-5.0 [facility] Work Phone: Serum or plasma albumin/glob ulin mass ratioon 12-02-2021 Albumin/Globulin [Mass ratio] 1.1 {ratio} 0.9-2.4 [facility] Work Phone: Serum or plasma angiotensin converting enzyme measurement (enzymatic activity/volume)on 12-02-2021 Angiotensin converting enzyme [Catalytic activity/Vol] 34 U/L 14-82 [facility] Work Phone: Comment on above: Performed at: [address] [id number] Director: Favian Ramirez PhD, Phone: [phone] Serum or plasma calcium kiya urement (mass/volume)on 12-02-2021 Calcium [Mass/Vol] 9.3 mg/dL 8.5-10.1 [facility] Work Phone: Serum or plasma cholesterol in HDL measurement (mass/volume)on 12-02-2021 Cholesterol in HDL [Mass/Vol] 51 mg/dL >40 [facility] Work Phone: Comment on above: The drugs N-Acetylcy steine and Metamizole may falsely depress this assay. Reference Range HDL <40 mg/dL Low HDL Cholesterol HDL >or= 60 mg/dL High HDL Cholesterol Serum or plasma cholesterol in VLDL measurement (mass/volume)on 12-02-2021 Cholesterol in VLDL [Mass/Vol] 32 mg/dL 5-40 [facility] Work Phone: Serum or plasma creatinine m easurement (mass/volume)on 12-02-2021 Creatinine [Mass/Vol] 1.53 mg/dL 0.70-1.30 [facility] Work Phone: Comment on above: The validity of the calculated GFR & GFRAA in patients over 70 years has not been determined. Clinical correlation is essential. Serum or plasma ferritin jose surement (mass/volume)on 12-02-2021 Ferritin [Mass/Vol] 192 ng/mL 26-388 [facility] Work Phone: Serum or plasma folate measu rement (mass/volume)on 12-02-2021 Folate [Mass/Vol] 49.90 ng/mL 3.1-55.4 [facility] Work Phone: Serum or plasma low density lipoprotein (LDL) cholesterol measurement (mass/volume)on 12-02-2021 Cholesterol in LDL [Mass/Vol] 99 mg/dL 0-130 [facility] Work Phone: Serum or plasma urea nitroge n measurement (mass/volume)on 12-02-2021 Urea nitrogen [Mass/Vol] 28 mg/dL 7-18 [facility] Work Phone: Thin prep Papanicolaou smear with manual screeningon 12-02-2021 Thin prep Papanicolaou smear with manual screening 27 U/L 15-37 [facility] Work Phone: Thin prep Papanicolaou smear with manual screening 7 5-15 [facility] Work Phone: No Panel Informationon 10-04 Prostate Specific Antigen Total 0.04 ng/mL 0.0-4.0 [facility] Work Phone: Comment on above: This test was perfor med using the TPSA assay method for [employer] chemistry system. Values obtained with differentassay methods cannot be used interchangably.When changing PSA assays in the course of monitoring apatient, additional sequential testing should be carriedout to confirm baseline values. Office Visit (Internal Medic ine)on 06-27-2021 Follow-up visit Diagnoses/Problems Assessed Anemia (285.9) (D64.9) URI (upper respiratory infection) (465.9) (J06.9) Patient Discussion/Summary F/U 4 WEEKS IN OFFICE WITH IRON TIBC FERRITIN B12 FOLIC ACID TSH FOR ANEMIA Provider Impressions PT. WAS INSTRUCTED TO INCREASE FLUID INTAKE ,TAKE TYLENOL 650 MG PO Q6H/PRN FOR PAIN OR FEVER AND TAKE ROBITUSSIN OTC 2 TSP Q 6H/PRN FOR COUGH. CLINICALLY IMPROVING Chief Complaint A telephone visit (audio only) between the patient (at the originating site) and the provider (at the distant site) was utilized to provide this telehealth service. Verbal consent was requested and obtained from ANDRÉS GUEVARA on this date, 06/27/2021 09:15 AM , for a telehealth visit. 1 WK FU COVID TEST PT FEELING BETTER SOME RESIDUAL COUGH BUT FEELING BETTER BUT NOT 100% History of Present IllnessF/U , FEELS A LOT BETTER, SOME SLIGHT RESIDUAL SYMPTOMS COUGH AND CONGESTION Active Problems Problems Acute frontal sinusitis (461.1) (J01.10) Advance directive discussed with patient (V65.49) (Z71.89) Anxiety and depression (300.00,311) (F41.9,F32.A) CAD (coronary artery disease) (414.00) (I25.10) Chronic kidney failure, stage 3 (moderate) (585.3) (N18.30) Depression screening negative (V79.0) (Z13.31) Encounter for immunization (V03.89) (Z23) Erythema migrans (Lyme disease) (088.81) (A69.20) GERD (gastroesophageal reflux disease) (530.81) (K21.9) H/O prostatectomy (V45.89) (Z90.79) HTN (hypertension) (401.9) (I10) Hypophosphatemia (275.3) (E83.39) Malignant neoplasm of prostate (185) (C61) Muscle cramps (729.82) (R25.2) Peripheral neuropathy (356.9) (G62.9) Pre-syncope (780.2) (R55) URI (upper respiratory infection) (465.9) (J06.9) Vitamin D deficiency (268.9) (E55.9) Past Medical History Problems H/O non-ST elevation myocardial infarction (NSTEMI) (412) (I25.2) History of kidney stones (V13.01) (Z87.442) History of Screening PSA (prostate specific antigen) (V76.44) (Z12.5) 4.03 [facility] Surgical History Problems History of Cardiac catheterization with stent placement History of Colonoscopy WNL History of Cystoscopy DR. RUFUS DOMÍNGUEZ History of Lithotripsy DR. RUFUS DOMÍNGUEZ History of Prostatectomy DR. RUFUS DOMÍNGUEZ History of Shoulder surgery LEFT History of [place] tooth extraction Family History Mother Family history of Alzheimer's disease (V17.2) (Z82.0) Father Family history of malignant neoplasm of prostate (V16.42) (Z80.42) Family history of malignant neoplasm of skin (V16.8) (Z80.8) Sister Family history of malignant neoplasm of skin (V16.8) (Z80.8) Brother Family history of malignant neoplasm of prostate (V16.42) (Z80.42) Social History Problems Denies alcohol consumption (V49.89) (Z78.9) Does not use illicit drugs (V49.89) (Z78.9) Non-smoker (V49.89) (Z78.9) Patient has healthcare proxy and living will (V49.89) (Z78.9) Allergies Medication No Known Drug Allergies Recorded By: Paul Brennan; 04/03/2019 9:57:06 AM Current Meds Medication NameInstruction amLODIPine Besylate 2.5 MG Oral TabletTAKE 1 TABLET TWICE DAILY. Aspirin 81 MG Oral Tablet Delayed ReleaseTake 1 tablet daily Azithromycin 250 MG Oral TabletTAKE DIRECTED PER PACKAGE INSTRUCTIONS. Famotidine 20 MG Oral TabletTAKE 1 TABLET DAILY DIRECTED. Lipitor 40 MG Oral TabletTAKE 1 TABLET EVERY OTHER DAY Losartan Potassium 100 MG Oral Tablet Multi-Vitamins TABSTAKE 1 TABLET DAILY. Phosphorus Supplement 280-160-250 MG Oral PacketTAKE DIRECTED. Plavix 75 MG Oral TabletTake 1 tablet daily predniSONE 10 MG Oral TabletTAKE 1 TABLET 3 TIMES DAILY. Vitamin C TABSTAKE 1 TABLET DAILY. Vitamin D (Ergocalciferol) 1.25 MG (01822 UT) Oral Capsuletake 1 capsule every 2 weeks Vitals Vital Signs Recorded: 27Jun2021 08:16AM Tobacco Useb) No Fall Screeninga) No falls within the last year Results/Data LABS REVIEWED WITH PT Signatures Electronically signed by : Abel Madrigal MD; Jun 27 2021 8:32AM EST (Author) Normal [employer] Absolute lymphocyte counton 06-21-2021 Lymphocytes Auto (Unsp spec) [#/Vol] 1.01 10*3/uL 0.83-4.51 [facility] Work Phone: Basophil percentageon 2021 Basophil percentage 2.6 mg/dL 2.5-4.9 [facility] Work Phone: Basophils/100 WBC (Bld) 0.3 % 0-1 [facility] Work Phone: [phone] Bilirubin [Mass/Vol] 0.70 mg/dL 0.20-1.00 [facility] Work Phone: Comment on above: For patients on eltr ombopag therapy, use of Dimension [place] TBIL is not recommended. Chloride [Moles/Vol] 108 mmol/L 98-107 [facility] Work Phone: Eosinophils/100 WBC (Bld) 5.0 % 0-5 [facility] Work Phone: Glucose [Mass/Vol] 95 mg/dL 74-106 [facility] Work Phone: Neutrophils (Bld) [#/Vol] 8.6 10*3/uL 2.0-7.7 [facility] Work Phone: Neutrophils/100 WBC (Bld) 74.1 % 47-70 [facility] Work Phone: [phone] Potassium [Moles/Vol] 4.3 mmol/L 3.5-5.1 [facility] Work Phone: Protein [Mass/Vol] 7.9 g/dL 6.4-8.2 [facility] Work Phone: [phone] Sodium [Moles/Vol] 138 mmol/L 136-145 [facility] Work Phone: WBC (Bld) [#/Vol] 11.6 10*3/uL 4.4-11.0 [facility] Work Phone: Blood erythrocytes count (nu mber/volume)on 06-21-2021 RBC (Bld) [#/Vol] 3.92 10*6/uL 4.6-6.2 [facility] Work Phone: Blood hemoglobin measurement (mass/volume)on 06-21-2021 Hemoglobin (Bld) [Mass/Vol] 12.6 g/dL 13.0-16.5 [facility] Work Phone: Blood lymphocytes/100 leukoc yteson 06-21-2021 Lymphocytes/100 WBC (Bld) 8.7 % 19-41 [facility] Work Phone: [phone] Blood monocytes/100 leukocyt eson 06-21-2021 Monocytes/100 WBC (Bld) 11.6 % 0-10 [facility] Work Phone: Blood platelet mean volumeon 06-21-2021 Platelet mean volume (Bld) [Entitic vol] 8.7 fL 6.2-12.0 [facility] Work Phone: Determination of erythrocyte mean corpuscular volume (MCV)on 06-21-2021 MCV (RBC) [Entitic vol] 94.6 fL 80-94 [facility] Work Phone: Hematocrit Auto (Bld) [Volum e fraction]on 06-21-2021 Hematocrit (Bld) [Volume fraction] 37.1 % 40-54 [facility] Work Phone: Laboratory - Chemistry and C hemistry - challengeon 06-21-2021 ALP [Catalytic activity/Vol] 86 U/L 45-117 [facility] Work Phone: ALT [Catalytic activity/Vol] 35 U/L 16-61 [facility] Work Phone: CO2 [Moles/Vol] 24.0 mmol/L 21.0-32.0 [facility] Work Phone: Globulin (S) [Mass/Vol] 4.3 g/dL 2.2-4.2 [facility] Work Phone: Magnesium [Mass/Vol] 2.2 mg/dL 1.6-2.6 [facility]: Urea nitrogen/Creatinine [Mass ratio] 18.9 mg/mg 10-20 [facility] Work Phone: Laboratory - Hematology and Cell countson 06-21-2021 Erythrocyte distribution width (RBC) [Entitic vol] 45.6 fL 35.1-43.9 [facility] Work Phone: Erythrocyte distribution width (RBC) [Ratio] 13.1 % 11.6-14.6 [facility] Work Phone: Immature granulocytes/100 WBC (Bld) 0.300 % 0.0-0.9 [facility] Work Phone: Comment on above: IG% - Immature Granu locytes (promyelocytes, myelocytes and metamyelocytes) > 1% indicates that a LEFT SHIFT is Present. MCH (RBC) [Entitic mass] 32.1 pg 27.0-32.0 [facility] Work Phone: Nucleated RBC/100 WBC (Bld) [Ratio] 0 % 0-5 [facility] Work Phone: [phone] MCHC Auto (RBC) [Mass/Vol]on 06-21-2021 MCHC (RBC) [Mass/Vol] 34.0 g/dL 32-36 [facility] Work Phone: No Panel Informationon 06-21 Estimated GFR (MDRD) Amer 50 mL/min >60 [facility] Work Phone: Comment on above: GFR Calc Estimated GFR (MDRD) Non-Af Amer 41 mL/min >60 [facility] Work Phone: Comment on above: Non- GFR Calc Parathyroid Hormone (Intact) 38.2 pg/mL 18.4-80.1 [facility] Work Phone: Vitamin D 25-Hydroxy 47.5 ng/mL [facility] Work Phone: Comment on above: Vitamin D 25(OH) Sta tus Range Deficiency <20 ng/mL (50nmol/L) Insufficiency 20 - 30 ng/mL (50 - 75 nmol/L) Sufficiency 30 - 100 ng/mL (75 - 250 nmol/L) Toxicity >100 ng/mL (>250 nmol/L) Platelets bldon 06-21-2021 Platelets (Bld) [#/Vol] 321 10*3/uL 150-450 [facility] Work Phone: Serum or plasma albumin kiya urement (mass/volume)on 06-21-2021 Albumin [Mass/Vol] 3.6 g/dL 3.2-5.0 [facility] Work Phone: Serum or plasma albumin/glob ulin mass ratioon 06-21-2021 Albumin/Globulin [Mass ratio] 0.8 {ratio} 0.9-2.4 [facility] Work Phone: Serum or plasma calcium kiya urement (mass/volume)on 06-21-2021 Calcium [Mass/Vol] 9.4 mg/dL 8.5-10.1 [facility] Work Phone: Serum or plasma creatinine m easurement (mass/volume)on 06-21-2021 Creatinine [Mass/Vol] 1.75 mg/dL 0.70-1.30 [facility] Work Phone: Comment on above: The validity of the calculated GFR & GFRAA in patients over 70 years has not been determined. Clinical correlation is essential. Serum or plasma urea nitroge n measurement (mass/volume)on 06-21-2021 Urea nitrogen [Mass/Vol] 33 mg/dL 7-18 [facility] Work Phone: Thin prep Papanicolaou smear with manual screeningon 06-21-2021 Thin prep Papanicolaou smear with manual screening 33 U/L 15-37 [facility] Work Phone: Thin prep Papanicolaou smear with manual screening 6 5-15 [facility] Work Phone: Urine creatinine measurement (mass/volume)on 06-21-2021 Creatinine (U) [Mass/Vol] 95.40 mg/dL NO RANGE EST. [facility] Work Phone: Urine protein measurement (m ass/volume)on 06-21-2021 Protein (U) [Mass/Vol] 9.0 mg/dL 0.0-11.8 [facility] Work Phone: Urine protein/creatinine mas s ratioon 06-21-2021 Protein/Creatinine (U) [Mass ratio] 94 mg/g CRE 0-200 [facility] Work Phone: Covid 19 Resultson 2 SARS-CoV-2 (COVID-19) RNA CASTRO+probe Ql (Unsp spec) NEGATIVE COVID-19 Test Coronaviruses are common world-wide and are the cause of many common colds. SARS-COV2 is a new coronavirus that began circulating worldwide in 2019 so we are calling it COVID-19. It has been estimated that four out of five patients with COVID-19 will recover at home without the need for medical attention. Symptoms of COVID-19 may include cough, fever, shortness of breath, loss of taste or smell and other flu-like symptoms including chills, sore muscles, sore throat, and headache. Severe illness is more common in older people and people with other health problems such as high blood pressure, obesity, and immune system problems. If the test is positive, you have COVID-19. You will be contacted by the ordering physicians office and instructed to remain on home isolation, in accordance with CDC guidelines. You may also be contacted by the [facility] to see if any of your close contacts may have been exposed to the virus and need to quarantine. If the test is negative, you likely do not have COVID-19 at this time, but you still may have a different illness that can spread to other people (like Influenza, or the Flu) and could still be at risk for getting COVID-19. We recommend that you stay away from other people to limit the spread of illness until your symptoms are improving and you are fever-free for 24 hours without the use of fever lowering medications such as acetaminophen or ibuprofen. No test is 100% accurate so if you are still concerned you may have COVID-19, talk to your doctor about the need to continue to stay away from others. Medicines Unless your provider told you not to use the following: Acetaminophen (Tylenol and others) is generally safe. Anti-inflammatory medications, such as Ibuprofen (Advil or Motrin) or Naproxen (Aleve) can also be used. Ujol-qsw-wrvreck cough and cold medicines can be used according to the instructions on the package. Some wreb-ggy-oywrpun medicines also contain acetaminophen. Make sure you are not taking more than your recommended dose. For those not hospitalized, there is no specific treatment available for this illness. Antibiotics do not treat Coronaviruses. Follow-Up Follow up with your doctor by scheduling a virtual visit or consider follow-up at one of our urgent care fever clinics. If you are having difficulty breathing, or are very weak and having difficulty standing, this is a medical emergency. Call 911 or have someone take you to the nearest emergency room immediately. If possible, wear a facemask. Additional guidance from the CDC for patients who tested POSITIVE for COVID-19 How to isolate: Isolate yourself in a specific room at home and limit your contact with others. Use a separate bathroom from other members of the household, when possible. Leave home only to get essential medical care. Do not go to work, school or public areas. Avoid using public transportation, ride-sharing, or taxis. Restrict contact with pets and other animals. If you must care for your pet or be around animals while you are sick, wash your hands before and after your interaction and wear a facemask. Make sure that shared spaces in the home have good airflow, such as by an air conditioner or an opened window, weather permitting. Personal Hygiene Procedures: Wear a face mask when in the same room as other people or pets. If a face mask interferes with your breathing, others should wear a mask when sharing space with you. Frequent hand-washing: wash your hands with soap and water for at least 20 seconds. If soap and water are not available, use alcohol-based hand wait staff. Avoid touching your eyes, nose, and mouth with unwashed hands. Household Hygiene Procedures: Avoid sharing personal household items such as dishes, glassware, cups, eating utensils, towels or bedding with other people or pets in your home. After use, these items should be washed with soap and hot water. Disinfect all high-touch surfaces every day with antibacterial cleaning solutions such as Lysol wipes, bleach, cleansers, etc. High-touch surfaces include tabletops, doorknobs, bathroom fixtures, toilets, phones, keyboards, tablets and bedside tables. Immediately clean any surfaces that may have blood, poop or body fluids on them, using antibacterial cleaning solutions such as Lysol wipes, bleach, cleansers, etc. If clothing or bedding come into contact with blood, poop or body fluids, they should be washed immediately. Follow the directions on the laundry detergent and clothing labels but hot water is recommended when possible. Stopping home isolation precautions: If possible, consult your doctor before stopping home isolation precautions. According to the CDC, you can discontinue home isolation precautions when you have met both of these criteria: Your fever and respiratory symptoms have been gone for 24 james (more content not included)... Normal [facility] INFLUENZA A/B, COVID 2019 PC R,SYMPTOMATICon 06-20-2021 INFLUENZA A, PCR Not detected Normal Not Detected [facility] Comment on above: Result Comment: Resp iratory virus testing is performed routinely by PCR for Influenza A/B and RSV. If Influenza and RSV PCR are negative, testing for parainfluenza 1,2,3 viruses and adenovirus is routinely performed for oncology inpatients and intensive care unit patients at [facility] and is available on request on other patients by calling Laboratory Client Services at [phone]. Not Detected results do not preclude Influenza A/B or RSV infections since the adequacy of sample collection or low viral burden may impact the clinical sensitivity of this test method. Performed By: #### C OINP #### [facility] [id number] [place] [id number] INFLUENZA B, PCR Not detected Normal Not Detected [facility] Comment on above: Result Comment: Resp iratory virus testing is performed routinely by PCR for Influenza A/B and RSV. If Influenza and RSV PCR are negative, testing for parainfluenza 1,2,3 viruses and adenovirus is routinely performed for oncology inpatients and intensive care unit patients at [facility] and is available on request on other patients by calling Laboratory Client Services at [phone] Not Detected results do not preclude Influenza A/B or RSV infections since the adequacy of sample collection or low viral burden may impact the clinical sensitivity of this test method. . The TaqManTM SARS-CoV-2, Flu A, Flu B Multiplex Assay is a multiplex, real-time RT-PCR assay for the detection of RNA from the SARS-CoV-2, Influenza A, and Influenza B viruses. A negative result does not preclude the possibility of SARS-CoV-2, Influenza A, or Influenza B infections, and should not be used as the sole basis for patient management decision as a negative result may be caused by very low levels of infection, collection errors, or testing errors. . This test was developed and its performance characteristics were determined by the Microbiology Laboratory, Department of Pathology, [place], [place]. It has not been cleared or approved by the US Food and Drug Administration; however, FDA clearance or approval is not currently required for clinical use. This test should not be regarded as investigational or for research purposes. Performed By: #### C OINP #### [facility] [address] [place] [address] SARS-CoV-2 (COVID-19) RNA CASTRO+probe Ql (Unsp spec) Not detected Normal Not Detected [facility] Comment on above: Result Comment: . This assay is designed to detect the N, ORF1ab and/or S genes of SARS-CoV-2 via nucleic acid amplification. A Negative (NOT DETECTED) result does not preclude 2019-nCoV infection since the adequacy of sample collection and/or low viral burden may result in presence of viral nucleic acids below the clinical sensitivity of this test method. Negative (NOT DETECTED) result should not be used as the sole basis for treatment or other patient management decisions. Rather negative results should be combined with clinical observations, patient history, and epidemiological information to make patient management decisions. Fact sheet for providers: https://www.fda.gov/media/623292/download Fact sheet for patients: https://www.fda.gov/media/777645/download This test has received FDA Emergency Use Authorization (EUA) and has been verified by [facility] ([facility]). This test is only authorized for the duration of time that circumstances exist to justify the authorization of the emergency use of in vitro diagnostic tests for the detection of SARS-CoV-2 virus and/or diagnosis of COVID-19 infection under section 564(b)(1) of the Act, 21 U.S.C. 360bbb-3(b)(1), unless the authorization is terminated or revoked sooner. [facility] is certified under CLIA-88 as qualified to perform high complexity testing. Testing is performed in the [facility] laboratories located at [address] [place] [address]. Performed By: #### C OINP #### [place] [address] Lab Specimen Source Nasal, Nasopharyngeal Normal [facility] Comment on above: Performed By: #### C OINP #### [place] [address] INFLUENZA A/B, COVID 2019 PCR,SYMPTOMATIC Not detected See Below [facility] Work Phone: Comment on above: Reference Range: Not Detected.This assay is designed to detect the N, ORF1ab and/or S genes of SARS-CoV-2 via nucleic acid amplification. A Negative (NOT DETECTED) result does not preclude 2019-nCoV infection since the adequacy of sample collection and/or low viral burden may result in presence of viral nucleic acids below the clinical sensitivity of this test method. Negative (NOT DETECTED) result should not be used as the sole basis for treatment or other patient management decisions. Rather negative results should be combined with clinical observations, patient history, and epidemiological information to make patient management decisions.Fact sheet for providers: https://www.fda.gov/media/128391/downloadFact sheet for patients: https://www.fda.gov/media/315535/downloadThis test has received FDA Emergency Use Authorization (EUA) and has been verified by [facility] ([facility]). This test is only authorized for the duration of time that circumstances exist to justify the authorization of the emergency use of in vitro diagnostic tests for the detection of SARS-CoV-2 virus and/or diagnosis of COVID-19 infection under section 564(b)(1) of the Act, 21 U.S.C. 360bbb-3(b)(1), unless the authorization is terminated or revoked sooner. [facility] is certified under CLIA-88 as qualified to perform high complexity testing. Testing is performed in the [facility] laboratories located at [address] [place] [address]. Reference Range: Not Detected Respiratory virus testing is performed routinely by PCR for Influenza A/B and RSV. If Influenza and RSV PCR are negative, testing for parainfluenza 1,2,3 viruses and adenovirus is routinely performed for oncology inpatients and intensive care unit patients at [facility] and is available on request on other patients by calling Laboratory Client Services at [phone] Not Detected results do not preclude Influenza A/B or RSV infections since the adequacy of sample collection or low viral burden may impact the clinical sensitivity of this test method..The TaqManTM SARS-CoV-2, Flu A, Flu B Multiplex Assay is a multiplex, real-time RT-PCR assay for the detection of RNA from the SARS-CoV-2, Influenza A, and Influenza B viruses. A negative result does not preclude the possibility of SARS-CoV-2, Influenza A, or Influenza B infections, and should not be used as the sole basis for patient management decision as a negative result may be caused by very low levels of infection, collection errors, or testing errors. .This test was developed and its performance characteristics were determined by the Microbiology Laboratory, Department of Pathology, [place], [place]. It has not been cleared or approved by the US Food and Drug Administration; however, FDA clearance or approval is not currently required for clinical use. This test should not be regarded as investigational or for research purposes. SOURCE: Nasal, Nasop haryngealReference Range: Not Detected Respiratory virus testing is performed routinely by PCR for Influenza A/B and RSV. If Influenza and RSV PCR are negative, testing for parainfluenza 1,2,3 viruses and adenovirus is routinely performed for oncology inpatients and intensive care unit patients at [facility] and is available on request on other patients by calling Laboratory Client Services at [phone]. Not Detected results do not preclude Influenza A/B or RSV infections since the adequacy of sample collection or low viral burden may impact the clinical sensitivity of this test method. Office Visit (Internal Medic ine)on 06-20-2021 Follow-up visit Diagnoses/Problems Assessed Muscle cramps (729.82) (R25.2) URI (upper respiratory infection) (465.9) (J06.9) Orders Acute frontal sinusitis INFLUENZA A/B, COVID 2018 PCR,SYMPTOMATIC; Status:Active - Retrospective Authorization; Requested for:20Jun2021; Perform:Lab Services - Lab To Draw (Non-Blood Test); Due:[id number]; Last Updated By:Radha De Souza; 06/20/2021 8:42:27 AM;Ordered; For:Acute frontal sinusitis; Ordered By:Abel Madrigal; TODAY AT 10 PT AWARE Patient Discussion/Summary F/U 1 WEEK COVID FLU AB, CBC CMP MAG LEVEL, PHOSP LEVEL OFF 3 DAYS Provider Impressions PT. WAS INSTRUCTED TO INCREASE FLUID INTAKE ,TAKE TYLENOL 650 MG PO Q6H/PRN FOR PAIN OR FEVER AND TAKE ROBITUSSIN OTC 2 TSP Q 6H/PRN FOR COUGH. SELF Q. Chief Complaint A telephone visit (audio only) between the patient (at the originating site) and the provider (at the distant site) was utilized to provide this telehealth service. Verbal consent was requested and obtained from ANDRÉS GUEVARA on this date, 06/20/2021 10:30 AM , for a telehealth visit. PT CO COUGH SINUS CONGESTION EYES MATTING SHUT LOW GRADE FEVER ON AND OFF HOME TEST FOR COVID WAS NEGATIVE YESTERDAY NO LOSS OF TASTE OR SMELL FEELS LOUSY History of Present IllnessC/O COUGH , PRODUCTIVE NASAL SINUS CONGESTION LOW GRADE FEVER, WATERY EYES WITH MATTERING IN AM NO LOSS OF TASTE OR SMELL FAMILY POSITIVE FOR COVID 2 HOME TESTS NEGATIVE C/O FATIGUE NO SOB COUPLE OF DAYS AGO TIGHTNESS OF CALVES, NO SWELLING , SOME CRAMPS OFF AND ON Active Problems Problems Acute frontal sinusitis (461.1) (J01.10) Advance directive discussed with patient (V65.49) (Z71.89) Anxiety and depression (300.00,311) (F41.9,F32.A) CAD (coronary artery disease) (414.00) (I25.10) Chronic kidney failure, stage 3 (moderate) (585.3) (N18.30) Depression screening negative (V79.0) (Z13.31) Encounter for immunization (V03.89) (Z23) Erythema migrans (Lyme disease) (088.81) (A69.20) GERD (gastroesophageal reflux disease) (530.81) (K21.9) H/O prostatectomy (V45.89) (Z90.79) HTN (hypertension) (401.9) (I10) Hypophosphatemia (275.3) (E83.39) Malignant neoplasm of prostate (185) (C61) Peripheral neuropathy (356.9) (G62.9) Pre-syncope (780.2) (R55) Vitamin D deficiency (268.9) (E55.9) Past Medical History Problems H/O non-ST elevation myocardial infarction (NSTEMI) (412) (I25.2) History of kidney stones (V13.01) (Z87.442) History of Screening PSA (prostate specific antigen) (V76.44) (Z12.5) 4.03 - [facility] Surgical History Problems History of Cardiac catheterization with stent placement History of Colonoscopy WNL History of Cystoscopy DR. RUFUS DOMÍNGUEZ History of Lithotripsy DR. RUFUS DOMÍNGUEZ History of Prostatectomy DR. RUFUS DOMÍNGUEZ History of Shoulder surgery LEFT History of [place] tooth extraction Family History Mother Family history of Alzheimer's disease (V17.2) (Z82.0) Father Family history of malignant neoplasm of prostate (V16.42) (Z80.42) Family history of malignant neoplasm of skin (V16.8) (Z80.8) Sister Family history of malignant neoplasm of skin (V16.8) (Z80.8) Brother Family history of malignant neoplasm of prostate (V16.42) (Z80.42) Social History Problems Denies alcohol consumption (V49.89) (Z78.9) Does not use illicit drugs (V49.89) (Z78.9) Non-smoker (V49.89) (Z78.9) Patient has healthcare proxy and living will (V49.89) (Z78.9) Allergies Medication No Known Drug Allergies Recorded By: Paul Brennan; 04/03/2019 9:57:06 AM Current Meds Medication NameInstruction amLODIPine Besylate 2.5 MG Oral TabletTAKE 1 TABLET TWICE DAILY. Aspirin 81 MG Oral Tablet Delayed ReleaseTake 1 tablet daily Famotidine 20 MG Oral TabletTAKE 1 TABLET DAILY DIRECTED. Lipitor 40 MG Oral TabletTAKE 1 TABLET EVERY OTHER DAY Losartan Potassium 100 MG Oral Tablet Multi-Vitamins TABSTAKE 1 TABLET DAILY. Phosphorus Supplement 280-160-250 MG Oral PacketTAKE DIRECTED. Plavix 75 MG Oral TabletTake 1 tablet daily Vitamin C TABSTAKE 1 TABLET DAILY. Vitamin D (Ergocalciferol) 1.25 MG (74083 UT) Oral Capsuletake 1 capsule every 2 weeks Vitals Vital Signs Recorded: 20Jun2021 08:21AM Tobacco Useb) No Fall Screeninga) No falls within the last year Time Total time on date of patient encounter: 11 minutes. Signatures Electronically signed by : Abel Madrigal MD; Jun 20 2021 8:47AM EST (Author) Normal [employer] Tobacco Screening.on 022 Fall risk assessment a) No falls within the last year [facility] Work Phone: Tobacco use status [facility] b) No [facility] Work Phone: Medicare Annual Wellness Vis iton 05-30-2021 Medicare Annual Wellness Visit *Chief Complaint 6 MMO F/U LABS-[facility]; C/O LOW BACK PAIN AND B/L FOOT PAIN AND TINGLING AT TIMES History of Present Illness The patient is being seen for the subsequent annual wellness visit. Past Medical, Surgical and Family History: reviewed and updated in chart. Medications and Supplements: Review of all medications by a prescribing practitioner or clinical pharmacist (such as prescriptions, OTCs, herbal therapies and supplements) documented in the medical record. No, the patient is not using opioids. Patient Self Assessment of Health Status: excellent. Tobacco use: Non-User Alcohol use: Non-User Illicit drug use: Non-User Current diet: well balanced diet. Exercise Frequency: regularly. Depression/Suicide Screening: . During the past 2 weeks, the patient has not felt down, depressed or hopeless. During the past 2 weeks, the patient has not felt little interest or pleasure in doing things. Hearing Impairment: none. Cognitive Impairment: No cognitive impairment observed. Bathing: performs independently. Dressing: performs independently. Walking: performs independently. Managing Finances: performs independently. Shopping: performs independently. Managing Medications: performs independently. Housework / Basic Home Maintenance: performs independently. Falls Risk Screening:. ANDRÉS has not fallen in the last 6 months. Home safety risk factors: none. Advance directives:. Advance Care Planning discussed and documented in the medical record, patient did not wish or was not able to name a surrogate decision maker or provide an advance care plan. Additional Information: BRING A COPY. HERE FOR F/U WITH LABS LBP , CHRONIC FOR YEARS OFF AND ON, MILD , DOES NOT HAVE TO TAKE ANY THING USUALLY, ICE WORKS NUMBNESS AND TINGLING IN FEET, MILD , NOT INTRESTED TO TAKE MEDS FOR IT WELLNESS EXAM Review of Systems Constitutional: not feeling poorly, no fever, no recent weight gain and no recent weight loss. Eyes: no blurred vision and no diplopia. ENT: no hearing loss, no tinnitus, no earache, no sore throat, no hoarseness and no swollen glands in the neck. Cardiovascular: no chest pain, no tightness or heavy pressure, no shortness of breath, no palpitations and no lower extremity edema. Respiratory: no cough, not coughing up sputum and no wheezing that is consistent with asthma. Gastrointestinal: no change in bowel habits, no diarrhea, no constipation, no bloody stools, no nausea, no vomiting, no abdominal pain, no signs and symptoms of ulcer disease, no zahida colored stools and no intolerance to fatty foods. Genitourinary: no urinary frequency, no dysuria, no hematuria, no burning sensation during urination, urinary stream is not smaller and urinary stream does not start and stop. Musculoskeletal: back pain, but no arthralgias, no joint stiffness, no muscle weakness and no difficulty walking. Skin: no rashes, no change in skin color and pigmentation, no skin lesions and no skin lumps. Neurological: tingling and numbness, but no headaches, no dizziness, no seizures, no signs and symptoms of stroke and no limb weakness. Psychiatric: no confusion, no memory lapses or loss, no depression and no sleep disturbances. Endocrine: no goiter, no thyroid disorder, no diabetes mellitus, no excessive thirst, no dry skin, no cold intolerance, no heat intolerance and no increased urinary frequency. Hematologic/Lymphatic: is not slow to heal, does not bleed easily, does not bruise easily, no thrombophlebitis, no anemia and no history of blood transfusion. All other systems have been reviewed and are negative for complaint. *Active Problems Acute frontal sinusitis (461.1) (J01.10) Anxiety and depression (300.00,311) (F41.9,F32.A) CAD (coronary artery disease) (414.00) (I25.10) Chronic kidney failure, stage 3 (moderate) (585.3) (N18.30) Encounter for immunization (V03.89) (Z23) Erythema migrans (Lyme disease) (088.81) (A69.20) GERD (gastroesophageal reflux disease) (530.81) (K21.9) H/O prostatectomy (V45.89) (Z90.79) HTN (hypertension) (401.9) (I10) Hypophosphatemia (275.3) (E83.39) Malignant neoplasm of prostate (185) (C61) Peripheral neuropathy (356.9) (G62.9) Pre-syncope (780.2) (R55) Vitamin D deficiency (268.9) (E55.9) Past Medical History H/O non-ST elevation myocardial infarction (NSTEMI) (412) (I25.2) History of kidney stones (V13.01) (Z87.442) History of Screening PSA (prostate specific antigen) (V76.44) (Z12.5) 4.03 [facility] Surgical History History of Cardiac catheterization with stent placement History of Colonoscopy WNL History of Cystoscopy DR. RUFUS DOMÍNGUEZ History of Lithotripsy DR. RUFUS DOMÍNGUEZ History of Prostatectomy DR. RUFUS DOMÍNGUEZ History of Shoulder surgery LEFT History of [place] tooth extraction Family History Family history of Alzheimer's disease (V17.2) (Z82.0) Family history of malignant neoplasm of prostate (more content not included)... Normal [employer] Tobacco Screening.on 022 Fall risk assessment a) No falls within the last year [facility] Work Phone: Tobacco use status CPHS b) No [facility] Work Phone: Absolute lymphocyte counton 05-25-2021 Lymphocytes Auto (Unsp spec) [#/Vol] 1.11 10*3/uL 0.83-4.51 [facility] Work Phone: Basophil percentageon 2021 Basophils/100 WBC (Bld) 0.4 % 0-1 [facility] Work Phone: Bilirubin [Mass/Vol] 0.70 mg/dL 0.20-1.00 [facility] Work Phone: Comment on above: For patients on eltr ombopag therapy, use of Dimension [place] TBIL is not recommended. Chloride [Moles/Vol] 107 mmol/L 98-107 [facility] Work Phone: Eosinophils/100 WBC (Bld) 6.9 % 0-5 [facility] Work Phone: Glucose [Mass/Vol] 93 mg/dL 74-106 [facility] Work Phone: Neutrophils (Bld) [#/Vol] 5.5 10*3/uL 2.0-7.7 [facility] Work Phone: Neutrophils/100 WBC (Bld) 67.3 % 47-70 [facility] Work Phone: Potassium [Moles/Vol] 4.4 mmol/L 3.5-5.1 [facility] Work Phone: Protein [Mass/Vol] 7.9 g/dL 6.4-8.2 [facility] Work Phone: Sodium [Moles/Vol] 139 mmol/L 136-145 [facility] Work Phone: WBC (Bld) [#/Vol] 8.2 10*3/uL 4.4-11.0 [facility] Work Phone: Blood erythrocytes count (nu mber/volume)on 05-25-2021 RBC (Bld) [#/Vol] 4.37 10*6/uL 4.6-6.2 [facility] Work Phone: Blood hemoglobin measurement (mass/volume)on 05-25-2021 Hemoglobin (Bld) [Mass/Vol] 14.4 g/dL 13.0-16.5 [facility] Work Phone: [phone] Blood lymphocytes/100 leukoc yteson 05-25-2021 Lymphocytes/100 WBC (Bld) 13.5 % 19-41 [facility] Work Phone: Blood monocytes/100 leukocyt eson 05-25-2021 Monocytes/100 WBC (Bld) 11.4 % 0-10 [facility] Work Phone: Blood platelet mean volumeon 05-25-2021 Platelet mean volume (Bld) [Entitic vol] 8.6 fL 6.2-12.0 [facility] Work Phone: Determination of erythrocyte mean corpuscular volume (MCV)on 05-25-2021 MCV (RBC) [Entitic vol] 92.7 fL 80-94 [facility] Work Phone: Hematocrit Auto (Bld) [Volum e fraction]on 05-25-2021 Hematocrit (Bld) [Volume fraction] 40.5 % 40-54 [facility] Work Phone: [phone] Laboratory - Chemistry and C hemistry - challengeon 05-25-2021 ALP [Catalytic activity/Vol] 88 U/L 45-117 [facility] Work Phone: ALT [Catalytic activity/Vol] 43 U/L 16-61 [facility] Work Phone: CO2 [Moles/Vol] 27.0 mmol/L 21.0-32.0 [facility] Work Phone: Globulin (S) [Mass/Vol] 3.9 g/dL 2.2-4.2 [facility] Work Phone: Urea nitrogen/Creatinine [Mass ratio] 21.2 mg/mg 10-20 [facility] Work Phone: Laboratory - Hematology and Cell countson 05-25-2021 Erythrocyte distribution width (RBC) [Entitic vol] 44.3 fL 35.1-43.9 [facility] Work Phone: Erythrocyte distribution width (RBC) [Ratio] 13.0 % 11.6-14.6 [facility] Work Phone: Immature granulocytes/100 WBC (Bld) 0.500 % 0.0-0.9 [facility] Work Phone: Comment on above: IG% - Immature Granu locytes (promyelocytes, myelocytes and metamyelocytes) > 1% indicates that a LEFT SHIFT is Present. MCH (RBC) [Entitic mass] 33.0 pg 27.0-32.0 [facility] Work Phone: Nucleated RBC/100 WBC (Bld) [Ratio] 0 % 0-5 [facility] Work Phone: MCHC Auto (RBC) [Mass/Vol]on 05-25-2021 MCHC (RBC) [Mass/Vol] 35.6 g/dL 32-36 [facility] Work Phone: No Panel Informationon 05-25 Estimated GFR (MDRD) Amer 55 mL/min >60 [facility] Work Phone: Comment on above: GFR Calc Estimated GFR (MDRD) Non-Af Amer 45 mL/min >60 [facility] Work Phone: Comment on above: Non- GFR Calc Thyroid Stimulating Hormone (TSH) 2.28 uIU/mL 0.358-3.74 [facility] Work Phone: Vitamin B12 Level > 2000 pg/mL [phone] [facility] Work Phone: Vitamin D 25-Hydroxy 49.7 ng/mL [facility] Work Phone: Comment on above: Vitamin D 25(OH) Sta tus Range Deficiency <20 ng/mL (50nmol/L) Insufficiency 20 - 30 ng/mL (50 - 75 nmol/L) Sufficiency 30 - 100 ng/mL (75 - 250 nmol/L) Toxicity >100 ng/mL (>250 nmol/L) Platelets bldon 05-25-2021 Platelets (Bld) [#/Vol] 326 10*3/uL 150-450 [facility] Work Phone: Serum or plasma albumin kiya urement (mass/volume)on 05-25-2021 Albumin [Mass/Vol] 4.0 g/dL 3.2-5.0 [facility] Work Phone: Serum or plasma albumin/glob ulin mass ratioon 05-25-2021 Albumin/Globulin [Mass ratio] 1.0 {ratio} 0.9-2.4 [facility] Work Phone: Serum or plasma calcium kiya urement (mass/volume)on 05-25-2021 Calcium [Mass/Vol] 9.7 mg/dL 8.5-10.1 [facility] Work Phone: Serum or plasma creatinine m easurement (mass/volume)on 05-25-2021 Creatinine [Mass/Vol] 1.60 mg/dL 0.70-1.30 [facility] Work Phone: Comment on above: The validity of the calculated GFR & GFRAA in patients over 70 years has not been determined. Clinical correlation is essential. Serum or plasma folate measu rement (mass/volume)on 05-25-2021 Folate [Mass/Vol] ng/mL 3.1-55.4 [facility] Work Phone: Serum or plasma urea nitroge n measurement (mass/volume)on 05-25-2021 Urea nitrogen [Mass/Vol] 34 mg/dL 7-18 [facility] Work Phone: Thin prep Papanicolaou smear with manual screeningon 05-25-2021 Thin prep Papanicolaou smear with manual screening 33 U/L 15-37 [facility] Work Phone: Thin prep Papanicolaou smear with manual screening 5 5-15 [facility] Work Phone: No Panel Informationon 04-08 Prostate Specific Antigen Total 0.01 ng/mL 0.0-4.0 [facility] Work Phone: Comment on above: This test was perfor med using the TPSA assay method for [employer] chemistry system. Values obtained with differentassay methods cannot be used interchangably.When changing PSA assays in the course of monitoring apatient, additional sequential testing should be carriedout to confirm baseline values. Tobacco Screening.on 021 Fall risk assessment a) No falls within the last year [facility] Work Phone: Tobacco use status CPHS b) No [facility] Work Phone: Lab Report: Bilirubin, Direc ton 03-09-2017 Bilirubin (direct) 0.27 mg/dL Invalid Interpretation Code 0.00-0.30 [facility] Work Phone: Lab Report: Comprehensive Tx tabolic Profilon 03-09-2017 Alanine aminotransferase (ALT) 36 U/L Invalid Interpretation Code 12-78 [facility] Work Phone: [phone] Albumin 3.8 g/dL Invalid Interpretation Code 3.4-5.0 [facility] Work Phone: [phone] Albumin/Globulin Ratio 1.1 {ratio} Invalid Interpretation Code 0.9-2.4 [facility] Work Phone: Alkaline phosphatase (ALP) 72 U/L Invalid Interpretation Code 45-117 [facility] Work Phone: [phone] Anion gap 9 mmol/L Invalid Interpretation Code 5-15 [facility] Work Phone: [phone] Aspartate aminotransferase (AST) 28 U/L Invalid Interpretation Code 15-37 [facility] Work Phone: [phone] Bilirubin (total) 1.20 mg/dL High 0.20-1.00 [facility] Work Phone: [phone] BUN/Creatinine Ratio 16.0 RATIO Invalid Interpretation Code 10-20 [facility] Work Phone: [phone] Calcium 8.8 mg/dL Invalid Interpretation Code 8.5-10.1 [facility] Work Phone: [phone] Chloride 104 mmol/L Invalid Interpretation Code 98-107 [facility] Work Phone: [phone] CO2 26.0 mmol/L Invalid Interpretation Code 21.0-32.0 [facility] Work Phone: [phone] Creatinine 1.44 mg/dL High 0.70-1.30 [facility] Work Phone: [phone] eGFR (non-black) 63 mL/min/{1.73_m2} Invalid Interpretation Code >60 [facility] Work Phone: [phone] eGFR (non-black) 52 mL/min/{1.73_m2} Low >60 [facility] Work Phone: [phone] Globulin 3.6 g/dL Invalid Interpretation Code 2.2-4.2 [facility] Work Phone: [phone] Glucose 83 mg/dL Invalid Interpretation Code 70-110 [facility] Work Phone: [phone] Potassium 4.7 mmol/L Invalid Interpretation Code 3.5-5.1 [facility] Work Phone: [phone] Protein 7.4 g/dL Invalid Interpretation Code 6.4-8.2 [facility] Work Phone: [phone] Sodium 139 mmol/L Invalid Interpretation Code 136-145 [facility] Work Phone: [phone] Urea nitrogen 23 mg/dL High 7-18 [facility] Work Phone: [phone] Lab Report: Lipid Profileon 03-09-2017 Cholesterol 136 mg/dL Invalid Interpretation Code 200 [facility] Work Phone: [phone] HDL Cholesterol 48 mg/dL Invalid Interpretation Code [facility] Work Phone: [phone] LDL Cholesterol 64 mg/dL Invalid Interpretation Code 0-130 [facility] Work Phone: [phone] Triglyceride 121 mg/dL Invalid Interpretation Code [facility] Work Phone: [phone] very low density lipoproteins 24 mg/dL Invalid Interpretation Code 5-40 [facility] Work Phone: [phone] Vital Signs Date Time Vital Sign Value Performing Clinician Facility 12-15-2024 15:17-0400 Diastolic blood pressure 70 mm[Hg] Abel Madrigal MD Work Phone: [facility] 12-15-2024 15:17-0400 Systolic blood pressure 130 mm[Hg] Abel Madrigal MD Work Phone: [facility] 12-15-2024 14:53-0400 Body height 177.8 cm Abel Madrigal MD Work Phone: [facility] 12-15-2024 14:53-0400 Body mass index (BMI) [Ratio] 23.53 kg/m2 Abel Madrigal MD Work Phone: [facility] 12-15-2024 14:53-0400 Body weight 74.39 kg Abel Madrigal MD Work Phone: [facility] 12-15-2024 14:53-0400 Heart rate 57 /min Abel Madrigal MD Work Phone: [facility] 12-15-2024 14:53-0400 SaO2% (BldA) [Mass fraction] 96 % Abel Madrigal MD Work Phone: [facility] 12-02-2024 08:57-0400 Body height 177.[address] Abel Madrigal MD Work Phone: [facility] 12-02-2024 08:57-0400 Body mass index (BMI) [Ratio] 23.6 kg/m2 Dr. Abel Madrigal MD Work Phone: 9(015)939-467489 [place] [address] 12-02-2024 08:57-0400 Body weight 74.[address] Abel Madrigal MD Work Phone: 2(343)059-995254 [place] [address] 12-02-2024 08:57-0400 Diastolic blood pressure 76 mm[Hg] Dr. Abel Madrigal MD Work Phone: 7(748)700-148654 [place] [address] 12-02-2024 08:57-0400 Heart rate 61 /min Dr. Abel Madrigal MD Work Phone: 1(563)148-607854 [place] [address] 12-02-2024 08:57-0400 Respiratory rate 16 /min Dr. Abel Madrigal MD Work Phone: 5(017)673-649054 [place] [address] 12-02-2024 08:57-0400 Systolic blood pressure 138 mm[Hg] Dr. Abel Madrigal MD Work Phone: 6(778)327-213254 [place] [address] 06-16-2024 14:57-0400 Body height 177.8 cm Abel Madrigal MD Work Phone: 7(147)504-062038 [place] [address] 06-16-2024 14:57-0400 Body mass index (BMI) [Ratio] 24.11 kg/m2 Abel Madrigal MD Work Phone: 6(585)836-000090 [place] [address] 06-16-2024 14:57-0400 Body weight 76.2 kg Abel Madrigal MD Work Phone: 3(356)059-857190 [place] [address] 06-16-2024 14:57-0400 Diastolic blood pressure 78 mm[Hg] Abel Madrigal MD Work Phone: 9(154)508-323290 [place] [address] 06-16-2024 14:57-0400 Heart rate 60 /min Abel Madrigal MD Work Phone: 6(822)345-164490 [place] [address] 06-16-2024 14:57-0400 Systolic blood pressure 143 mm[Hg] Abel Madrigal MD Work Phone: [facility] 03-31-2024 15:59-0500 Diastolic blood pressure 80 mm[Hg] Dr. Abel Madrigal MD Work Phone: [facility] 03-31-2024 15:59-0500 Systolic blood pressure 142 mm[Hg] Dr. Abel Madrigal MD Work Phone: 4(541)407-099189 [place] [address] 03-31-2024 15:25-0500 Body height 177.[address] Abel Madrigal MD Work Phone: 6(405)484-816889 [place] [address] 03-31-2024 15:25-0500 Body mass index (BMI) [Ratio] 24 kg/m2 Dr. Abel Madrigal MD Work Phone: 8(324)002-319589 [place] [address] 03-31-2024 15:25-0500 Body weight 76.[address] Abel Madrigal MD Work Phone: 8(373)327-563189 [place] [address] 03-31-2024 15:25-0500 Heart rate 59 /min Dr. Abel Madrigal MD Work Phone: [facility] 03-31-2024 15:25-0500 Respiratory rate 18 /min Dr. Abel Madrigal MD Work Phone: [facility] 12-17-2023 15:09-0400 Body height 177.8 cm Abel Madrigal MD Work Phone: [facility] 12-17-2023 15:09-0400 Body mass index (BMI) [Ratio] 23.39 kg/m2 Abel Madrigal MD Work Phone: [facility] 12-17-2023 15:09-0400 Body weight 73.94 kg Abel Madrigal MD Work Phone: [facility] 12-17-2023 15:09-0400 Diastolic blood pressure 76 mm[Hg] Abel Madrigal MD Work Phone: 6(202)669-721538 [place] [address] 12-17-2023 15:09-0400 Heart rate 52 /min Abel Madrigal MD Work Phone: 3(069)255-316038 [place] [address] 12-17-2023 15:09-0400 Systolic blood pressure 152 mm[Hg] Abel Madrigal MD Work Phone: 9(641)308-324738 [place] [address] 07-03-2023 15:08-0400 Body height 177.8 cm Abel Madrigal MD Work Phone: 3(421)099-886538 [place] [address] 07-03-2023 15:08-0400 Body mass index (BMI) [Ratio] 23.68 kg/m2 Abel Madrigal MD Work Phone: 0(621)921-590960 [address] 07-03-2023 15:08-0400 Body weight 74.84 kg Abel Madrigal MD Work Phone: 8(306)072-586860 [address] 07-03-2023 15:08-0400 Diastolic blood pressure 75 mm[Hg] Abel Madrigal MD Work Phone: 0(529)219-799538 [place] [address] 07-03-2023 15:08-0400 Heart rate 60 /min Abel Madrigal MD Work Phone: 0(899)477-970738 [place] [address] 07-03-2023 15:08-0400 Systolic blood pressure 126 mm[Hg] Abel Madrigal MD Work Phone: 1(505)778-373038 [place] [address] 05-01-2023 15:41-0500 Body height 177.8 cm Abel Madrigal MD Work Phone: 9(165)070-845238 [place] [address] 05-01-2023 15:41-0500 Body mass index (BMI) [Ratio] 22.81 kg/m2 Abel Madrigal MD Work Phone: 8(562)097-417338 [place] [address] 05-01-2023 15:41-0500 Body weight 72.12 kg Abel Madrigal MD Work Phone: [facility] 05-01-2023 15:41-0500 Diastolic blood pressure 73 mm[Hg] Abel Madrigal MD Work Phone: [facility] 05-01-2023 15:41-0500 Heart rate 73 /min Abel Madrigal MD Work Phone: [facility] 05-01-2023 15:41-0500 Systolic blood pressure 149 mm[Hg] Abel Madrigal MD Work Phone: [facility] 04-17-2023 12:36-0500 Body height 177.8 cm Abel Madrigal MD Work Phone: [facility] 04-17-2023 12:36-0500 Body mass index (BMI) [Ratio] 22.38 kg/m2 Abel Madrigal MD Work Phone: [facility] 04-17-2023 12:36-0500 Body weight 70.76 kg Abel Madrigal MD Work Phone: [facility] 04-17-2023 12:36-0500 Diastolic blood pressure 77 mm[Hg] Abel Madrigal MD Work Phone: [facility] 04-17-2023 12:36-0500 Heart rate 73 /min Abel Madrigal MD Work Phone: [facility] 04-17-2023 12:36-0500 Systolic blood pressure 138 mm[Hg] Abel Madrigal MD Work Phone: [facility] 04-13-2023 15:34-0500 Body temperature 98 [degF] Dr. Abel Madrigal Work Phone: [facility] 04-13-2023 15:34-0500 Diastolic blood pressure 67 mm[Hg] Dr. Abel Madrigal Work Phone: [facility] 04-13-2023 15:34-0500 Heart rate 72 /min Dr. Abel Madrigal Work Phone: [facility] 04-13-2023 15:34-0500 Respiratory rate 16 /min Dr. Abel Madrigal Work Phone: [facility] 04-13-2023 15:34-0500 SaO2% (BldA) [Mass fraction] 92 % Dr. Abel Madrigal Work Phone: [facility] 04-13-2023 15:34-0500 Systolic blood pressure 140 mm[Hg] Dr. Abel Madrigal Work Phone: [facility] 04-13-2023 07:51-0500 Inhaled oxygen flow rate 2 L/min Dr. Abel Madrigal Work Phone: [facility] 04-13-2023 03:43-0500 Body mass index (BMI) [Ratio] 24.9 kg/m2 Dr. Abel Madrigal Work Phone: [facility] 04-13-2023 03:43-0500 Body weight 78.[address] Abel Madrigal Work Phone: [facility] 04-11-2023 10:08-0500 Body height 177.[address] Abel Madrigal Work Phone: [facility] 04-11-2023 06:00-0500 Inhaled oxygen concentration 30 % Dr. Abel Madrigal Work Phone: [facility] 10-04-2022 08:42-0400 Body height 177.[address] Abel Madrigal Work Phone: [facility] 10-04-2022 08:42-0400 Body mass index (BMI) [Ratio] 23.2 kg/m2 Dr. Abel Madrigal Work Phone: [facility] 10-04-2022 08:42-0400 Body weight 73.[address] Abel Madrigal Work Phone: [facility] 10-04-2022 08:42-0400 Diastolic blood pressure 73 mm[Hg] Dr. Abel Madrigal Work Phone: [facility] 10-04-2022 08:42-0400 Heart rate 59 /min Dr. Abel Madrigal Work Phone: [facility] 10-04-2022 08:42-0400 Respiratory rate 18 /min Dr. Abel Madrigal Work Phone: [facility] 10-04-2022 08:42-0400 SaO2% (BldA) [Mass fraction] 97 % Dr. Abel Madrigal Work Phone: [facility] 10-04-2022 08:42-0400 Systolic blood pressure 126 mm[Hg] Dr. Abel Madrigal Work Phone: [facility] 06-12-2022 07:55-0400 Body height 177.8 cm Abel Madrigal MD Work Phone: [facility] 06-12-2022 07:55-0400 Body mass index (BMI) [Ratio] 24.25 kg/m2 Abel Madrigal MD Work Phone: [facility] 06-12-2022 07:55-0400 Body weight 76.66 kg Abel Madrigal MD Work Phone: [facility] 06-12-2022 07:55-0400 Diastolic blood pressure 68 mm[Hg] Abel Madrigal MD Work Phone: [facility] 06-12-2022 07:55-0400 Heart rate 60 /min Abel Madrigal MD Work Phone: [facility] 06-12-2022 07:55-0400 Systolic blood pressure 114 mm[Hg] Abel Madrigal MD Work Phone: [facility] 01-10-2022 16:41-0500 Body height 177.8 cm Able Jadiel Tavallaee Work Phone: [facility] Work Phone: 01-10-2022 16:41-0500 Body mass index (BMI) [Ratio] 23.82 kg/m2 Abel M Tavallaee Work Phone: [facility] Work Phone: 01-10-2022 16:41-0500 Body surface area Derived from formula 1.93 m2 Abel Jadiel Tavallaee Work Phone: [facility] Work Phone: 01-10-2022 16:41-0500 Body weight 75.3 kg Abel Jadiel Tavallaee Work Phone: [facility] Work Phone: 01-10-2022 16:41-0500 Diastolic blood pressure 76 mm[Hg] Abel Jadiel Tavallaee Work Phone: [facility] Work Phone: 01-10-2022 16:41-0500 Heart rate 72 /min Abel M Tavallaee Work Phone: [facility] Work Phone: 01-10-2022 16:41-0500 Systolic blood pressure 126 mm[Hg] Abel M Tavallaee Work Phone: [facility] Work Phone: 01-04-2022 08:58-0500 Body height 177.8 cm Abel M Tavallaee Work Phone: [facility] Work Phone: 01-04-2022 08:58-0500 Body mass index (BMI) [Ratio] 24.11 kg/m2 Abel M Tavallaee Work Phone: [facility] Work Phone: 01-04-2022 08:58-0500 Body surface area Derived from formula 1.94 m2 Abel M Tavallaee Work Phone: [facility] Work Phone: 01-04-2022 08:58-0500 Body weight 76.2 kg Abel M Tavallaee Work Phone: [facility] Work Phone: 01-04-2022 08:58-0500 Diastolic blood pressure 79 mm[Hg] Abel M Tavallaee Work Phone: [facility] Work Phone: 01-04-2022 08:58-0500 Heart rate 69 /min Abel M Tavallaee Work Phone: [facility] Work Phone: 01-04-2022 08:58-0500 Systolic blood pressure 138 mm[Hg] Abel M Tavallaee Work Phone: [facility] Work Phone: 12-12-2021 08:01-0400 Body height 177.8 cm Abel M Tavallaee Work Phone: [facility] Work Phone: 12-12-2021 08:01-0400 Body mass index (BMI) [Ratio] 23.96 kg/m2 Abel M Tavallaee Work Phone: [facility] Work Phone: 12-12-2021 08:01-0400 Body surface area Derived from formula 1.93 m2 Abel M Tavallaee Work Phone: [facility] Work Phone: 12-12-2021 08:01-0400 Body weight 75.75 kg Abelrenea Madrigal Work Phone: [facility] Work Phone: 12-12-2021 08:01-0400 Diastolic blood pressure 72 mm[Hg] Abel Madrigal Work Phone: [facility] Work Phone: 12-12-2021 08:01-0400 Heart rate 62 /min Abel Madrigal Work Phone: [facility] Work Phone: 12-12-2021 08:01-0400 Systolic blood pressure 128 mm[Hg] Abel Madrigal Work Phone: [facility] Work Phone: 12-08-2021 10:24-0400 Diastolic blood pressure 79 mm[Hg] Dr. Abel Madrigal Work Phone: [facility] Work Phone: 12-08-2021 10:24-0400 Heart rate 76 /min Dr. Abel Madrigal Work Phone: [facility] Work Phone: 12-08-2021 10:24-0400 Respiratory rate 13 /min Dr. Abel Madrigal Work Phone: [facility] Work Phone: 12-08-2021 10:24-0400 SaO2% (BldA) [Mass fraction] 94 % Dr. Abel Madrigal Work Phone: [facility] Work Phone: 12-08-2021 10:24-0400 Systolic blood pressure 126 mm[Hg] Dr. Abel Madrigal Work Phone: [facility] Work Phone: 12-08-2021 06:50-0400 Body height 177.[address] Abel Madrigal Work Phone: [facility] Work Phone: 12-08-2021 06:50-0400 Body mass index (BMI) [Ratio] 24 kg/m2 Dr. Abel Madrigal Work Phone: [facility] Work Phone: 12-08-2021 06:50-0400 Body temperature 97.7 [degF] Dr. Abel Madrigal Work Phone: [facility] Work Phone: 12-08-2021 06:50-0400 Body weight 75.[address] Abel Madrigal Work Phone: [facility] Work Phone: 09-27-2021 13:46-0400 Body height 177.[address] Able Madrigal Work Phone: [facility] Work Phone: 09-27-2021 13:46-0400 Body mass index (BMI) [Ratio] 23.6 kg/m2 Dr. Abel Madrigal Work Phone: [facility] Work Phone: 09-27-2021 13:46-0400 Body weight 74.[address] Abel Madrigal Work Phone: [facility] Work Phone: 09-27-2021 13:46-0400 Diastolic blood pressure 80 mm[Hg] Dr. Abel Madrigal Work Phone: [facility] Work Phone: 09-27-2021 13:46-0400 Heart rate 58 /min Dr. Abel Madrigal Work Phone: [facility] Work Phone: 09-27-2021 13:46-0400 Respiratory rate 16 /min Dr. Abel Madrigal Work Phone: [facility] Work Phone: 09-27-2021 13:46-0400 SaO2% (BldA) [Mass fraction] 94 % Dr. Abel Madrigal Work Phone: [facility] Work Phone: 09-27-2021 13:46-0400 Systolic blood pressure 130 mm[Hg] Dr. Abel Madrigal Work Phone: [facility] Work Phone: 05-30-2021 07:59-0400 Body height 177.8 cm Abel Madrigal Work Phone: [facility] Work Phone: 05-30-2021 07:59-0400 Body mass index (BMI) [Ratio] 24.89 kg/m2 Abel Madrigal Work Phone: [facility] Work Phone: 05-30-2021 07:59-0400 Body surface area Derived from formula 1.96 m2 Abel Madrigal Work Phone: [facility] Work Phone: 05-30-2021 07:59-0400 Body weight 78.7 kg Abel Madrigal Work Phone: [facility] Work Phone: 05-30-2021 07:59-0400 Diastolic blood pressure 78 mm[Hg] Abel Madrigal Work Phone: [facility] Work Phone: 05-30-2021 07:59-0400 Heart rate 68 /min Abel Jadiel Tavallaee Work Phone: [facility] Work Phone: 05-30-2021 07:59-0400 Systolic blood pressure 122 mm[Hg] Abel Jadiel Tavallaee Work Phone: [facility] Work Phone: 11-29-2020 08:03-0400 Body height 177.8 cm Abel Jadiel Tavallaee Work Phone: [facility] Work Phone: 11-29-2020 08:03-0400 Body mass index (BMI) [Ratio] 23.82 kg/m2 Abel Jadiel Tavallaee Work Phone: [facility] Work Phone: 11-29-2020 08:03-0400 Body surface area Derived from formula 1.93 m2 Abel Jadiel Tavallaee Work Phone: [facility] Work Phone: 11-29-2020 08:03-0400 Body weight 75.3 kg Abel Jadiel Tavallaee Work Phone: [facility] Work Phone: 11-29-2020 08:03-0400 Diastolic blood pressure 78 mm[Hg] Abel Jadiel Tavallaee Work Phone: [facility] Work Phone: 11-29-2020 08:03-0400 Heart rate 66 /min Abel Jadiel Tavallaee Work Phone: [facility] Work Phone: 11-29-2020 08:03-0400 Systolic blood pressure 112 mm[Hg] Abel M Tavallaee Work Phone: [facility] Work Phone: Encounters Encounter Date Encounter Type Care Provider Facility Start: 01-02-2025 ambulatory [facility] Facility:[facility] Start: 12-15-2024 End: 12-15-2024 Office outpatient visit 25 minutes Abel Madrigal MD Work Phone: [facility] Internal Medicine Comment on above: Chronic kidney failu re, stage 3 (moderate) (Multi) (Primary Dx); Primary hypertension; Vitamin D deficiency Start: 12-15-2024 End: 12-15-2024 ambulatory [facility] Jadiel [facility] Start: 12-02-2024 End: 12-02-[address] Himanshu Koch MD -[facility] Work Phone: Start: 12-02-2024 End: 12-02-[address] Abel Madrigal MD Work Phone: -[facility] Start: 12-02-2024 End: 12-02-2024 ambulatory [facility] Facility:[facility] Start: 11-21-2024 End: 11-21-[address] Abel Madrigal MD Work Phone: -Laboratory Start: 11-21-2024 End: 11-21-[address] Abel Madrigal MD -Laboratory Work Phone: Start: 11-21-2024 End: 11-21-2024 ambulatory Abel Madrigal Facility:[facility] Start: 09-29-2024 ambulatory Abel Madrigal Facil ity:[facility] Start: 09-29-2024 Registered Recurring Lynda PRADO -Physical Therapy Work Phone: Start: 06-20-2024 End: 06-20-[address] Abel Madrigal MD Work Phone: [facility] Work Phone: Start: 06-20-2024 End: 06-20-[address] Abel Madrigal MD -Radiology, [facility] Work Phone: Start: 06-20-2024 End: 06-20-2024 ambulatory Abel Madrigal Facility:[facility] Start: 06-16-2024 End: 06-16-2024 Assay of hemosiderin, quant Abel Madrigal MD Work Phone: [facility] Work Phone: Start: 06-16-2024 End: 06-16-2024 Patient encounter procedure Abel Madrigal MD Work Phone: [facility] Internal Medicine Comment on above: Routine general medi nadeem examination at health care facility (Primary Dx); Chronic kidney failure, stage 3 (moderate) (Multi); Primary hypertension; Hypercholesterolemia; Malignant neoplasm of prostate (Multi); Right inguinal pain Start: 06-16-2024 End: 06-16-2024 ambulatory ABEL MADRIGAL [facility] Ambulatory Start: 06-06-2024 End: 06-06-[address] Abel Madrigal MD Work Phone: [facility] Work Phone: Start: 06-06-2024 End: 06-06-[address] Abel Madrigal MD -Laboratory Work Phone: Start: 06-06-2024 End: 06-06-2024 ambulatory Abel Madrigal Facility:[facility] Start: 04-11-2024 ambulatory Phyllis PRADO Facility:[facility] Start: 04-11-2024 Non-patient / Non-visit Dr. Kyle MEDINA -[facility] Start: 04-11-2024 End: 04-11-2024 Patient encounter procedure Phyllis PRADO -Cardiovascular Services Work Phone: Start: 04-11-2024 End: 04-11-2024 ambulatory Phyllis PRADO Facility:[facility] Start: 03-31-2024 End: 03-31-2024 Patient encounter procedure Phyllis PRADO -[facility] Work Phone: Start: 03-31-2024 End: 03-31-2024 ambulatory Phyllis PRADO Facility:[facility] Start: 02-06-2024 End: 02-06-2024 ambulatory Abel Madrigal Facility:[facility] Start: 12-17-2023 End: 12-17-2023 Office outpatient visit 25 minutes Abel Madrigal MD Work Phone: [facility] Medicine Comment on above: Primary hypertension (Primary Dx); Need for immunization against influenza; Chronic kidney failure, stage 3 (moderate) (Multi); Hypercholesterolemia; Vitamin D deficiency; Seborrheic dermatitis Start: 07-03-2023 End: 07-03-2023 Assay of hemosiderin, quant Abel Madrigal MD Work Phone: [facility] Work Phone: Start: 07-03-2023 End: 07-03-2023 Patient encounter procedure Abel Madrigal MD Work Phone: [facility] Medicine Comment on above: Routine general medi nadeem examination at health care facility (Primary Dx); Chronic kidney failure, stage 3 (moderate) (Multi); Primary hypertension; Vitamin D deficiency; Hypercholesterolemia Start: 06-15-2023 End: 06-15-[address] Abel Madrigal Work Phone: [facility] Work Phone: Start: 06-15-2023 End: 06-15-[address] Abel Madrigal Work Phone: [facility]-Laboratory Work Phone: Start: 05-01-2023 End: 05-01-2023 Office outpatient visit 25 minutes Abel Madrigal MD Work Phone: [facility] Medicine Comment on above: Chronic kidney failu re, stage 3 (moderate) (CMS/HCC) (Primary Dx); Gastroesophageal reflux disease, unspecified whether esophagitis present; Vitamin D deficiency; Primary hypertension Start: 04-18-2023 End: 04-18-[address] Abel Madrigal Work Phone: [facility]-Laboratory Work Phone: Start: 04-17-2023 End: 04-17-2023 Office outpatient visit 25 minutes Abel Madrigal MD Work Phone: [facility] Comment on above: Chronic kidney failu re, stage 3 (moderate) (CMS/HCC) (Primary Dx); H/O urinary tract infection; Nephrolithiasis; Malignant neoplasm of prostate (CMS/HCC); Bilateral lower extremity edema Start: 04-13-2023 Non-patient / Non-visit Dr. Me renea Madrigal Work Phone: [facility] Start: 04-12-2023 Non-patient / Non-visit Dr. Me renea Madrigal Work Phone: [facility] Start: 04-11-2023 Non-patient / Non-visit Dr. Me renea Madrigal Work Phone: [facility] Start: 04-10-2023 Non-patient / Non-visit Dr. Me renea Madrigal Work Phone: [facility] Start: 04-09-2023 Non-patient / Non-visit Dr. Me renea Madrigal Work Phone: [facility] Start: 04-09-2023 Non-patient / Non-visit Dr. Me renea Madrigal Work Phone: [facility] Work Phone: Start: 04-08-2023 Non-patient / Non-visit Dr. Me renea Madrigal Work Phone: [facility] [facility] Work Phone: Start: 04-08-2023 End: 04-13-2023 Evaluation and management of inpatient Dr. Abel Madrigal Work Phone: [facility]-Progressive Care Unit Work Phone: Start: 03-08-2023 End: 03-08-2023 Phys/qhp telephone evaluation 11-20 min Abel Madrigal MD Work Phone: [facility] Comment on above: COVID-19 (Primary Dx ) Start: 01-05-2023 End: 01-05-[address] Abel Madrigal Work Phone: [facility] Work Phone: Start: 01-05-2023 End: 01-05-[address] Abel Madrigal Work Phone: [facility]-Laboratory Work Phone: Start: 12-08-2022 End: 12-08-[address] Abel Madrigal Work Phone: [facility] Work Phone: Start: 12-08-2022 End: 12-08-[address] Abel Madrigal Work Phone: [facility]-Laboratory Work Phone: Start: 10-04-2022 End: 10-04-[address] Abel Madrigal Work Phone: [facility] Work Phone: Start: 06-12-2022 End: 06-12-2022 Assay of hemosiderin, quant Abel Madrigal MD Work Phone: [facility] Work Phone: Start: 06-12-2022 End: 06-12-2022 Patient encounter procedure Abel Madrigal MD Work Phone: [facility] Comment on above: Routine general medi nadeem examination at health care facility (Primary Dx); Malignant neoplasm of prostate (CMS/HCC); Chronic kidney failure, stage 3 (moderate) (CMS/HCC); Coronary artery disease involving [place] heart without angina pectoris, unspecified vessel or lesion type; Primary hypertension; Vitamin D deficiency Start: 06-08-2022 End: 06-08-2022 ambulatory [facility] Work Phone: Start: 06-08-2022 End: 06-08-2022 Patient encounter procedure [facility]-Laboratory Start: 04-19-2022 End: 04-19-2022 ambulatory [facility] Work Phone: Start: 04-19-2022 End: 04-19-2022 [facility] Start: 04-07-2022 End: 04-07-2022 [facility] Start: 02-28-2022 End: 02-28-[address] Abel Madrigal Work Phone: [facility] Work Phone: Start: 02-28-2022 End: 02-28-[address] [facility] Start: 01-13-2022 End: 01-13-[address] Abel Madrigal Work Phone: [facility] Work Phone: Start: 01-13-2022 End: 01-13-[address] Abel Madrigal Work Phone: [facility] Start: 01-10-2022 Office outpatient vi sit 15 minutes Abel Madrigal Work Phone: [facility] Work Phone: Start: 01-10-2022 ambulatory Abel Kelly am [place] Facility:[id number] Start: 01-06-2022 End: 01-06-[address] Abel Madrigal Work Phone: [facility] Work Phone: Start: 01-06-2022 End: 01-06-[address] Abel Madrigal Work Phone: [facility] Start: 01-04-2022 Office outpatient vi sit 25 minutes Abel Madrigal Work Phone: [facility] Work Phone: Start: 01-04-2022 ambulatory Abel Espitiaz am [place] Facility:[id number] Start: 12-12-2021 Office outpatient vi sit 25 minutes Abel Madrigal Work Phone: [facility] Work Phone: Start: 12-12-2021 ambulatory Abel Espitiaz am [place] Facility:[id number] Start: 12-08-2021 End: 12-08-2021 Emergency department patient visit Dr. Abel Madrigal Work Phone: [facility]-Emergency Department Start: 12-08-2021 End: 12-08-2021 Non-patient / Non-visit Dr. Abel Madrigal Work Phone: [facility] Start: 12-02-2021 End: 12-02-[address] Abel Madrigal Work Phone: [facility]-Laboratory Start: 10-04-2021 End: 10-04-[address] Abel Madrigal Work Phone: [facility]-Laboratory Start: 09-28-2021 AUDIT Abel lovell Work Phone: [facility] Work Phone: Start: 09-27-2021 End: 09-27-[address] Abel Madrigal Work Phone: [facility] Start: 08-05-2021 AUDIT Abel Garay Tava llaee Work Phone: [facility] Work Phone: Start: 06-27-2021 ambulatory Abel Monazz am [place] Facility:[id number] Start: 06-21-2021 AUDIT Abel Fishera llaee Work Phone: [facility] Work Phone: Start: 06-21-2021 End: 06-21-2021 Patient encounter procedure [facility]Labor[facility] Start: 06-20-2021 Chart Update Abel Garay Tava llaee Work Phone: [facility] Work Phone: Start: 06-20-2021 ambulatory Abel Monazz am [place] Facility:[id number] Start: 05-30-2021 Adv care pln/ no alt dcsn mkr docd or refusal Abel Fisherallaee Work Phone: [facility] Work Phone: Start: 05-30-2021 ambulatory Abel Monazz am [place] Facility:[id number] Start: 05-25-2021 End: 05-25-2021 Patient encounter procedure [facility] Start: 04-08-2021 End: 04-08-2021 [facility] Start: 02-25-2021 AUDIT Abel Garay Tava llaee Work Phone: [facility] Work Phone: Start: 12-30-2020 AUDIT Abel Garay Tava llaee Work Phone: [facility] Work Phone: Start: 11-29-2020 Office outpatient vi sit 25 minutes Abel Madrigal Work Phone: [facility] Work Phone: Start: 09-27-2020 AUDIT Abelerlin lovell Work Phone: [facility] Work Phone: Start: 07-29-2019 Patient encounter procedure Vanessa Bassett [facility] Work Phone: Start: 06-25-2019 Patient encounter procedure Vanessa Bassett [facility] Work Phone: Start: 06-04-2019 Patient encounter procedure Vanessa Bassett [facility] Work Phone: Start: 06-02-2019 Patient encounter procedure Vanessa Bassett [facility] Work Phone: Start: 04-03-2019 Patient encounter procedure Vanessa Bassett [facility] Work Phone: Start: 05-06-2018 End: 05-07-2018 Patient encounter procedure Abel Madrigal Facility:[facility] Start: 01-10-2018 End: 01-11-2018 Patient encounter procedure Abel Madrigal Facility:[facility] Start: 12-11-2017 End: 12-11-2017 Patient encounter procedure Abel Madrigal Facility:[facility] Start: 12-10-2017 End: 12-11-2017 Patient encounter procedure Abel Madrigal Facility:[facility] Procedures Date Procedure Procedure Detail Performing Clinician Start: 11-21-2024 Vitamin D, 25-hydrox y measurement Dr. Abel Madrigal MD Work Phone: Comment on above: Vitamin D StatusDefi ciency: <20 ng/mL (50nmol/L)Insufficiency: 20-30 ng/mL (50-75 nmol/L)Sufficiency: 30-100 ng/mL (75-250 nmol/L)Toxicity: >100 ng/mL (>250 nmol/L) Start: 06-20-2024 Plain x-ray of pelvi s and lower extremity Dr. Abel Madrigal MD Work Phone: Start: 06-16-2024 Follow-up visit Follow-up ABEL MADRIGAL Start: 04-11-2024 Radionuclide imaging of perfusion of myocardium under exercise stress Dr. Abel Madrigal MD Work Phone: Start: 04-17-2023 Urnls dip stick/tabl et rgnt auto w/o microscopy Abel Madrigal MD Work Phone: Start: 04-09-2023 Fluoroscopic guidance Erlin Madrigal Work Phone: Start: 04-09-2023 Radiographic procedu re of chest Dr. Abel Madrigal Work Phone: Start: 04-09-2023 Insertion of stent i nto ureter Dr. Abel Madrigal Work Phone: Start: 04-08-2023 CT of chest, abdomen and pelvis without contrast Dr. Abel Madrigal Work Phone: Start: 04-08-2023 Plain chest X-ray Dr. Jadiel Madrigal Work Phone: Start: 04-08-2023 Bacteria identified in Blood by Culture Dr. Abel Madrigal Work Phone: Start: 04-08-2023 Measurement of occul t blood in stool specimen using immunoassay Dr. Abel Madrigal Work Phone: Start: 04-08-2023 SARS-CoV-2, Influenz a & RSV (PCR) Dr. Abel Madrigal Work Phone: Start: 04-08-[address] Doreen Madrigal Work Phone: Start: 04-19-2022 CT of chest without contrast Start: 04-16-2022 H/O: surgery H/O prostatectomy Doreen Madrigal MD Work Phone: Start: 01-13-2022 CT of chest without contrast Dr. Abel Madrigal Work Phone: Start: 01-06-2022 X-ray of lumbosacral spine Dr. Abel Madrigal Work Phone: Start: 12-08-2021 Plain chest X-ray Dr. Jadiel Madrigal Work Phone: Start: 12-02-2021 Plain chest X-ray Dr. Jadiel Madrigal Work Phone: Start: 02-13-2020 Colonoscopy Abel davis MD Work Phone: Start: 02-13-2020 Colonoscopy Abel Madrigal Work Phone: Comment on above: WNL; Start: 06-02-2019 Holter Monitor 3-14 Days Vanessa Bassett Start: 09-17-2018 Prostatectomy Abel M Rydere Work Phone: Comment on above: DR. RUFUS ARRIAGA; Start: 05-18-2017 Cystoscopy Abel M Marisa Work Phone: Comment on above: DR. RUFUS ARRIAGA; Start: 05-18-2017 Lithotripsy Abelrenea Madrigal Work Phone: Comment on above: DR. RUFUS ARRIAGA; Start: 05-22-2015 History of placement of stent for coronary artery disease History of coronary artery stent placement Phyllis PRADO Comment on above: PCI-KENA-Mid RCA w/ 4 .0 x 18 mm Xience Alpine Stent 05/22/15 Start: 05-22-2015 Cardiac catheterization Abel Madrigal Work Phone: End: 05-22-2015 Cardiac catheterization Vanessa Bassett Colonoscopy Vanessa Bassett Comment on above: Completed: 2009 End: 05-18-2017 Cystoscopy Vanessa Bassett Extraction of wisdom tooth Vanessa Bassett H/O: surgery H/O prostatectomy Abel Madrigal Work Phone: End: 05-18-2017 Lithotripsy Vanessa Bassett End: 09-17-2018 Prostatectomy Vanessa Bassett Repair of shoulder Vanessa aguilera Comment on above: LEFT; Plan of Treatment Date Care Activity Detail Author Start: 02-12-2030 Screening for malignant neoplasm of colon [facility] Start: 05-24-2028 DTaP/Tdap/Td Vaccines (3 - Td or Tdap) DTaP/Tdap/Td Vaccines (3 - Td or Tdap) [facility] Start: 11-21-2025 Urine screening for protein CKD: Urine Protein Screening [facility] Start: 06-22-2025 End: 06-22-2025 Patient encounter procedure 06/22/2025 3:00 PM EDT Office Visit [facility] [address] [place] [phone] Abel Madrigal MD [address] [place] [address] [facility] Start: 2025 Medicare Annual Wellness Visit Medicare Annual Wellness Visit (AWV) [facility] Start: 06-15-2025 End: 06-15-2025 Patient encounter procedure 06/15/2025 2:45 PM EDT Office Visit [facility] [address] [place] [phone] Abel Madrigal MD [address] [place] [address] [facility] Start: 12-15-2024 End: 12-15-2024 Patient encounter procedure 12/15/2024 3:00 PM EDT Office Visit [facility] [address] [place] [phone] Abel Madrigal MD [address] [place] [address] [facility] Start: 12-15-2024 End: 12-15-2025 25-hydroxyvitamin D3 [Mass/volume] in Serum or Plasma Vitamin D 25-Hydroxy,Total (for eval of Vitamin D levels) Lab Routine Vitamin D deficiency Expected: 12/15/2024 (Approximate), Expires: 12/15/2025 [facility] Work Phone: Comment on above: Expected: 12/15/2024 (Approximate), Expi res: 12/15/2025 Start: 12-15-2024 End: 12-15-2025 CBC W Auto Differential panel - Blood CBC and Auto Differential Lab Routine Chronic kidney failure, stage 3 (moderate) (Multi) Primary hypertension Vitamin D deficiency Expected: 12/15/2024 (Approximate), Expires: 12/15/2025 [facility] Work Phone: Comment on above: Expected: 12/15/2024 (Approximate), Expi res: 12/15/2025 Start: 12-15-2024 End: 12-15-2025 Comprehensive metabolic 2000 panel - Serum or Plasma Comprehensive Metabolic Panel Lab Routine Chronic kidney failure, stage 3 (moderate) (Multi) Primary hypertension Vitamin D deficiency Expected: 12/15/2024 (Approximate), Expires: 12/15/2025 [facility] Work Phone: Comment on above: Expected: 12/15/2024 (Approximate), Expi res: 12/15/2025 Start: 10-27-2024 COVID-19 Vaccine ( season) COVID-19 Vaccine ( season) [facility] Start: 09-26-2024 Influenza vaccination Influenza Vaccine (#1) [facility] Start: 07-03-2024 Medicare Annual Wellness Visit Medicare Annual Wellness Visit (AWV) [facility] Start: 06-16-2024 End: 06-16-2024 Patient encounter procedure 06/16/2024 3:00 PM EDT Office Visit [facility] [address] [place] [phone] Abel Madrigal MD [address] [place] [address] [facility] Start: 06-16-2024 End: 06-16-2025 25-hydroxyvitamin D3 [Mass/volume] in Serum or Plasma Vitamin D 25-Hydroxy,Total (for eval of Vitamin D levels) Lab Routine Chronic kidney failure, stage 3 (moderate) (Multi) Expected: 06/16/2024 (Approximate), Expires: 06/16/2025 [facility] Work Phone: Comment on above: Expected: 06/16/2024 (Approximate), Expi res: 06/16/2025 Start: 06-16-2024 End: 06-16-2025 CBC W Auto Differential panel - Blood CBC and Auto Differential Lab Routine Chronic kidney failure, stage 3 (moderate) (Multi) Primary hypertension Hypercholesterolemia Malignant neoplasm of prostate (Multi) Expected: 06/16/2024 (Approximate), Expires: 06/16/2025 [facility] Work Phone: Comment on above: Expected: 06/16/2024 (Approximate), Expi res: 06/16/2025 Start: 06-16-2024 End: 06-16-2025 Comprehensive metabolic 2000 panel - Serum or Plasma Comprehensive Metabolic Panel Lab Routine Chronic kidney failure, stage 3 (moderate) (Multi) Primary hypertension Hypercholesterolemia Malignant neoplasm of prostate (Multi) Expected: 06/16/2024 (Approximate), Expires: 06/16/2025 [facility] Work Phone: Comment on above: Expected: 06/16/2024 (Approximate), Expi res: 06/16/2025 Start: 06-16-2024 End: 06-16-2025 Microalbumin/Creatinine [Mass Ratio] in Urine Albumin-Creatinine Ratio, Urine Random Lab Routine Chronic kidney failure, stage 3 (moderate) (Multi) Expected: 06/16/2024 (Approximate), Expires: 06/16/2025 [facility] Work Phone: Comment on above: Expected: 06/16/2024 (Approximate), Expi res: 06/16/2025 Start: 06-16-2024 End: 06-16-2025 XR Hip Views XR hip right with pelvis when performed 2 or 3 views Imaging Routine Right inguinal pain Expected: 06/16/2024, Expires: 06/16/2025 [facility] Work Phone: Comment on above: Expected: 06/16/2024, Expires: Start: 12-17-2023 End: 12-17-2023 Patient encounter procedure 12/17/2023 3:00 PM EDT Office Visit [facility] [address] [place] [phone] Abel Madrigal MD [address] [place] [address] [facility] Start: 12-17-2023 End: 12-16-2024 25-hydroxyvitamin D3 [Mass/volume] in Serum or Plasma Vitamin D 25-Hydroxy,Total (for eval of Vitamin D levels) Lab Routine Chronic kidney failure, stage 3 (moderate) (Multi) Expected: 12/17/2023 (Approximate), Expires: 12/16/2024 [facility] Work Phone: Comment on above: Expected: 12/17/2023 (Approximate), Expi res: 12/16/2024 Start: 12-17-2023 End: 12-16-2024 CBC W Auto Differential panel - Blood CBC and Auto Differential Lab Routine Primary hypertension Chronic kidney failure, stage 3 (moderate) (Multi) Hypercholesterolemia Expected: 12/17/2023 (Approximate), Expires: 12/16/2024 [facility] Service Area Work Phone: Comment on above: Expected: 12/17/2023 (Approximate), Expi res: 12/16/2024 Start: 12-17-2023 End: 12-16-2024 Comprehensive metabolic 2000 panel - Serum or Plasma Comprehensive Metabolic Panel Lab Routine Primary hypertension Chronic kidney failure, stage 3 (moderate) (Multi) Hypercholesterolemia Expected: 12/17/2023 (Approximate), Expires: 12/16/2024 [facility] Work Phone: Comment on above: Expected: 12/17/2023 (Approximate), Expi res: 12/16/2024 Start: 10-28-2023 COVID-19 Vaccine () COVID-19 Vaccine () [facility] Start: 07-03-2023 End: 07-02-2024 25-hydroxyvitamin D3 [Mass/volume] in Serum or Plasma Vitamin D 25-Hydroxy,Total (for eval of Vitamin D levels) Lab Routine Vitamin D deficiency Expected: 07/03/2023 (Approximate), Expires: 07/02/2024 [facility] Work Phone: Comment on above: Expected: 07/03/2023 (Approximate), Expi res: 07/02/2024 Start: 07-03-2023 End: 07-02-2024 CBC W Auto Differential panel - Blood CBC and Auto Differential Lab Routine Routine general medical examination at health care facility Chronic kidney failure, stage 3 (moderate) (Multi) Primary hypertension Vitamin D deficiency Hypercholesterolemia Expected: 07/03/2023 (Approximate), Expires: 07/02/2024 [facility] Service Area Work Phone: Comment on above: Expected: 07/03/2023 (Approximate), Expi res: 07/02/2024 Start: 07-03-2023 End: 07-02-2024 Comprehensive metabolic 2000 panel - Serum or Plasma Comprehensive Metabolic Panel Lab Routine Routine general medical examination at health care facility Chronic kidney failure, stage 3 (moderate) (Multi) Primary hypertension Vitamin D deficiency Hypercholesterolemia Expected: 07/03/2023 (Approximate), Expires: 07/02/2024 [facility] Work Phone: Comment on above: Expected: 07/03/2023 (Approximate), Expi res: 07/02/2024 Start: 07-03-2023 End: 07-02-2024 Lipid 1996 panel - Serum or Plasma Lipid Panel Lab Routine Hypercholesterolemia Expected: 07/03/2023 (Approximate), Expires: 07/02/2024 [facility] Work Phone: Comment on above: Expected: 07/03/2023 (Approximate), Expi res: 07/02/2024 Start: 07-03-2023 End: 07-02-2024 Phosphate [Mass/volume] in Serum or Plasma Phosphorus Lab Routine Chronic kidney failure, stage 3 (moderate) (Multi) Expected: 07/03/2023 (Approximate), Expires: 07/02/2024 [facility] Work Phone: Comment on above: Expected: 07/03/2023 (Approximate), Expi res: 07/02/2024 Start: 06-18-2023 End: 06-18-2023 Patient encounter procedure 06/18/2023 3:00 PM EDT Office Visit [facility] [address] [place] [id number] Abel Madrigal MD [address] [place] [address] [facility] Start: 06-14-2023 Medicare Annual Wellness Visit Medicare Annual Wellness Visit (AWV) [facility] Start: 05-01-2023 End: 05-01-2023 Patient encounter procedure 05/01/2023 3:45 PM EST Office Visit [facility] Internal [facility] [address] [place] [id number] Abel Madrigal MD [address] [place] [address] [facility] Start: 05-01-2023 End: 04-30-2024 CBC W Auto Differential panel - Blood CBC and Auto Differential Lab Routine Chronic kidney failure, stage 3 (moderate) (CMS/HCC) Expected: 05/01/2023 (Approximate), Expires: 04/30/2024 [facility] Service Area Work Phone: Comment on above: Expected: 05/01/2023 (Approximate), Expi res: 04/30/2024 Start: 05-01-2023 End: 04-30-2024 Comprehensive metabolic 2000 panel - Serum or Plasma Comprehensive Metabolic Panel Lab Routine Chronic kidney failure, stage 3 (moderate) (CMS/HCC) Expected: 05/01/2023 (Approximate), Expires: 04/30/2024 [facility] Work Phone: Comment on above: Expected: 05/01/2023 (Approximate), Expi res: 04/30/2024 Start: 04-17-2023 End: 04-17-2024 CBC W Auto Differential panel - Blood CBC and Auto Differential Lab Routine Chronic kidney failure, stage 3 (moderate) (CMS/HCC) H/O urinary tract infection Nephrolithiasis Expected: 04/17/2023 (Approximate), Expires: 04/17/2024 [facility] Service Area Work Phone: Comment on above: Expected: 04/17/2023 (Approximate), Expi res: 04/17/2024 Start: 04-17-2023 End: 04-17-2024 Comprehensive metabolic 2000 panel - Serum or Plasma Comprehensive Metabolic Panel Lab Routine Chronic kidney failure, stage 3 (moderate) (CMS/HCC) H/O urinary tract infection Nephrolithiasis Expected: 04/17/2023 (Approximate), Expires: 04/17/2024 [facility] Work Phone: Comment on above: Expected: 04/17/2023 (Approximate), Expi res: 04/17/2024 Start: 04-17-2023 End: 04-17-2024 Phosphate [Mass/volume] in Serum or Plasma Phosphorus Lab Routine Chronic kidney failure, stage 3 (moderate) (CMS/HCC) H/O urinary tract infection Nephrolithiasis Expected: 04/17/2023 (Approximate), Expires: 04/17/2024 [facility] Work Phone: Comment on above: Expected: 04/17/2023 (Approximate), Expi res: 04/17/2024 Start: 04-13-2023 Patient discharge [facility] Start: 04-13-2023 [facility] Start: 04-13-2023 Removal of urinary catheter [facility] Start: 04-10-2023 Application of intermittent pneumatic compression device [facility] Start: 04-10-2023 Referral to occupational therapist [facility] Start: 04-10-2023 Referral to service [facility] Start: 04-09-2023 [facility] Start: 04-09-2023 [facility] Start: 04-09-2023 Dual pressure spontaneous ventilation support [facility] Start: 04-09-2023 [facility] Start: 04-08-2023 Verification routine [facility] Start: 04-08-2023 Following clinical pathway protocol [facility] Start: 04-08-2023 Cardiac monitoring [facility] Start: 04-08-2023 Catheterization of vein [facility] Start: 04-08-2023 Consultation [facility] Start: 04-08-2023 Notification of physician [facility] Start: 04-08-2023 Referral to ticket broker [facility] Start: 04-08-2023 Admission procedure [facility] Start: 04-08-2023 Consultation [facility] Start: 04-08-2023 Blood culture [facility] Start: 10-27-2022 COVID-19 Vaccine ( season) COVID-19 Vaccine () [facility] Start: 06-12-2022 End: 06-13-2023 25-hydroxyvitamin D3 [Mass/volume] in Serum or Plasma Vitamin D, Total Lab Routine Vitamin D deficiency Expected: 06/12/2022 (Approximate), Expires: 06/13/2023 [facility] Work Phone: Comment on above: Expected: 06/12/2022 (Approximate), Expi res: 06/13/2023 Start: 06-12-2022 End: 06-13-2023 CBC W Auto Differential panel - Blood CBC and Auto Differential Lab Routine Chronic kidney failure, stage 3 (moderate) (CMS/HCC) Expected: 06/12/2022 (Approximate), Expires: 06/13/2023 [facility] Work Phone: Comment on above: Expected: 06/12/2022 (Approximate), Expi res: 06/13/2023 Start: 06-12-2022 End: 06-13-2023 Comprehensive metabolic 2000 panel - Serum or Plasma Comprehensive Metabolic Panel Lab Routine Chronic kidney failure, stage 3 (moderate) (CMS/HCC) Expected: 06/12/2022 (Approximate), Expires: 06/13/2023 [facility] Service Area Work Phone: Comment on above: Expected: 06/12/2022 (Approximate), Expi res: 06/13/2023 Start: 06-12-2022 End: 06-13-2023 Lipid 1996 panel - Serum or Plasma Lipid Panel Lab Routine Coronary artery disease involving [place] heart without angina pectoris, unspecified vessel or lesion type Expected: 06/12/2022 (Approximate), Expires: 06/13/2023 [facility] Work Phone: Comment on above: Expected: 06/12/2022 (Approximate), Expi res: 06/13/2023 Start: 06-12-2022 FUV, Provider: Abel Madrigal, Status: Pen, Time: 8:00 AM FUV, Provider: Abel Madrigal, Status: Pen, Time: 8:00 AM [facility] Work Phone: Start: 06-12-2022 Patient encounter procedure MCRANNUAL, Provider: Abel Madrigal, Status: Pen, Time: 8:00 AM [facility] Work Phone: Start: 01-10-2022 FUV, Provider: Abel Madrigal, Status: Pen, Time: 4:45 PM FUV, Provider: Abel Madrigal, Status: Pen, Time: 4:[address] [facility] Work Phone: Start: 12-12-2021 FUV, Provider: Abel Madrigal, Status: Pen, Time: 8:00 AM FUV, Provider: Abel Madrigal, Status: Pen, Time: 8:[address] [facility] Work Phone: Start: 12-08-2021 [facility] Work Phone: Start: 06-27-2021 [facility]IR[facility], Provider: Abel Madrigal, Status: Pen, Time: 9:15 AM [facility], Provider: Abel Madrigal, Status: Pen, Time: 9:[address] [facility] Work Phone: Start: 05-30-2021 FUV, Provider: Abel Madrigal, Status: Pen, Time: 8:00 AM [facility]UV, Provider: Abel Madrigal, Status: Pen, Time: 8:[address] [facility] Work Phone: Start: 03-10-2021 COVID-19 Vaccine (4 - Moderna series) COVID-19 Vaccine (4 - Moderna series) [facility] Start: 11-29-2020 FUV, Provider: Abel Madrigal, Status: Pen, Time: 8:00 AM FUV, Provider: Abel Madrigal, Status: Pen, Time: 8:00 AM [facility] Work Phone: Start: 07-18-2020 COVID-19 Vaccine (3 - Booster for Moderna series) COVID-19 Vaccine (3 - Booster for Moderna series) [facility] Start: 09-22-2019 Zoster Vaccines (3 of 3) Zoster Vaccines (3 of 3) [facility] Start: 08-25-2019 MMR Vaccines (1 of 1 - Standard series) MMR Vaccines (1 of 1 - Standard series) [facility] Start: 07-23-2015 Zoster Vaccines (1 of 2) Zoster Vaccines (1 of 2) [facility] Start: 02-05-2015 Pneumococcal Vaccine: 65+ Years (2 - PPSV23 if available, else PCV20) Pneumococcal Vaccine: 65+ Years (2 - PPSV23 if available, else PCV20) [facility] Start: 2009 RSV High Risk: (Elderly (60+) or Population) (1 - Risk 60-74 years 1-dose series) RSV High Risk: (Elderly (60+) or Population) (1 - Risk 60-74 years 1-dose series) [facility] Start: 2009 RSV patients and/or patients aged 60+ years (1 - 1-dose 60+ series) RSV patients and/or patients aged 60+ years (1 - 1-dose 60+ series) [facility] Start: 06-18-1971 DTaP/Tdap/Td Vaccines (1 - Tdap) DTaP/Tdap/Td Vaccines (1 - Tdap) [facility] Start: 1968 Urine screening for protein CKD: Urine Protein Screening [facility] Start: 06-18-1967 Hepatitis C screening Hepatitis C Screening [facility] Start: 1949 Lipid panel Lipid Panel [facility] Start: 1949 Screening for malignant neoplasm of colon [facility] Patient Education ED Chest Pain, Uncertain Cause ED GERD (Adult) ED Gastritis (Adult) [facility] Work Phone: Patient referral [facility] Work Phone: [facility] Work Phone: Immunizations Immunization Date Immunization Notes Care Provider Fa carlos 12-17-2023 influenza, high dose seasonal, preservative-free Abel Madrigal MD Work Phone: [facility] Work Phone: 12-17-2023 influenza virus vacc ine, unspecified formulation Abel Madrigal MD Work Phone: [facility] Work Phone: 01-03-2023 Pneumococcal conjuga te vaccine, 20-valent (PREVNAR 20) Abel Madrigal MD Work Phone: [facility] Work Phone: 12-11-2022 Flu vaccine, quadrivalent, high-dose, preservative free, age 65y+ (FLUZONE) Abel Madrigal MD Work Phone: [facility] Work Phone: 06-12-2022 diphtheria, tetanus toxoids and acellular pertussis vaccine, unspecified formulation Abel Madrigal MD Work Phone: [facility] Work Phone: 06-12-2022 zoster vaccine-recombinant adjuvanted (Shingrix, PF,) 50 mcg/0.5 mL vaccine Abel Madrigal MD Work Phone: [facility] Work Phone: 06-12-2022 pneumoc 20-micaela conj- dip cr,PF, (Prevnar 20, PF,) 0.5 mL vaccine Abel Madrigal MD Work Phone: [facility] Work Phone: 12-12-2021 Fluzone High-Dose Quadrivalent 0.7 ML Intramuscular Suspension Prefilled Syringe; Translations: [Fluzone High-Dose Quadrivalent 0.7 ML Intramuscular Suspension Prefilled Syringe] Abel Madrigal Work Phone: [facility] Work Phone: Comment on above: Series: 12-12-2021 influenza, high dose seasonal, preservative-free Abel Madrigal MD Work Phone: [facility] Work Phone: 12-12-2021 influenza, seasonal, injectable Abel Madrigal MD Work Phone: [facility] Work Phone: 11-29-2020 Fluzone High-Dose Quadrivalent 0.7 ML Intramuscular Suspension Prefilled Syringe; Translations: [Fluzone High-Dose Quadrivalent 0.7 ML Intramuscular Suspension Prefilled Syringe] Abel Madrigal Work Phone: [facility] Work Phone: Comment on above: Series: 11-29-2020 influenza, seasonal, injectable Abel Madrigal MD Work Phone: [facility] Work Phone: 05-31-2020 pneumococcal vaccine , unspecified formulation Abel Madrigal Work Phone: [facility] Work Phone: 05-23-2020 Moderna COVID-19 Vac cine 100 MCG/0.5ML Intramuscular Suspension Abel Madrigal Work Phone: [facility] Work Phone: Comment on above: Series: 04-23-2020 Moderna COVID-19 Vac cine 100 MCG/0.5ML Intramuscular Suspension Abel Madrigal Work Phone: [facility] Work Phone: Comment on above: Series: 12-01-2019 Flu vaccine, quadrivalent, high-dose, preservative free, age 65y+ (FLUZONE) Abel Madrigal MD Work Phone: [facility] Work Phone: 07-28-2019 zoster vaccine, live Abel Madrigal MD Work Phone: [facility] Work Phone: 04-06-2019 zoster vaccine recombinant Abel Madrigal MD Work Phone: [facility] Work Phone: 04-06-2019 zoster vaccine, live Abel Madrigal MD Work Phone: [facility] 11-26-2018 Influenza virus vaccine [facility] 05-24-2018 tetanus toxoid, redu martin diphtheria toxoid, and acellular pertussis vaccine, adsorbed Abel Madrigal MD Work Phone: [facility] 12-10-2017 influenza virus vacc ine, unspecified formulation; Translations: [influenza virus vaccine, unspecified formulation] Vanessa Bassett [facility] Work Phone: Comment on above: Series: 05-28-2015 zoster vaccine, live ; Translations: [zoster vaccine, live] Vanessa Bassett [facility] Work Phone: Comment on above: Series: 12-11-2014 influenza, seasonal, injectable Abel Madrigal MD Work Phone: [facility] Work Phone: 12-11-2014 pneumococcal conjuga te vaccine, 13 valent Abel Madrigal Work Phone: [facility] Work Phone: Comment on above: Series: 12-11-2014 pneumococcal polysaccharide vaccine, [address] [facility] Work Phone: 12-18-2012 influenza, seasonal, injectable, preservative free Abel Madrigal MD Work Phone: [facility] Work Phone: 12-02-2011 influenza virus vacc ine, unspecified formulation Abel Madrigal MD Work Phone: [facility] Work Phone: 12-11-2008 influenza virus vacc ine, unspecified formulation Abel Madrigal MD Work Phone: [facility] 01-09-2008 influenza virus vacc ine, unspecified formulation Abel Madrigal MD Work Phone: [facility] Work Phone: 08-27-1998 diphtheria and tetan us toxoids, adsorbed for pediatric use Abel Madrigal MD Work Phone: [facility] Work Phone: Payers Date Payer Category Payer Self-pay [id number] 2021 Medicare [employer] MEDICARE A ETNA [employer] MEDICARE [id number] 2021-Present [address] [place] [phone] [id number] 2021 Medicare (Managed Care) [employer]AS MEDICARE [id number] 2017 Private Health Insurance 2014 Private Health Insurance [facility] [id number] 1949 Unknown [id number] [id number]. 71 1949 Unknown [id number] [id number]. 1949 Unknown [id number] .[id number]. 1949 Unknown [id number] 04.13.830.1.274506.3.579.2. 1949 Unknown [id number] 2.16840.1.475914.3.579.2. 71 1949 Unknown [id number] 2.16840.1.904031.3.579.2. 356 1949 Unknown [id number] 2.16840.1.257559.3.579.2. 356 1949 Unknown [id number] 2.16840.1.591141.3.579.2. 356 1949 Unknown [id number] 2.16.840.1.368430.3.579.2. 356 1949 Unknown [id number] 2.16.840.1.054913.3.579.2. 356 1949 Unknown [id number] 2.16.840.1.355728.3.579.2. 356 1949 Unknown [id number] 2.16.840.1.786269.3.579.2. 1244 1949 Unknown [id number] 2.16.840.1.333208.3.579.2. 1244 Unknown AET[employer] Unknown [id number] 2.16840.1.602083.3.579.2. 462 Unknown [id number] 2.16.840.1.788818.3.579.2. 462 Unknown [id number] 2.16.840.1.026719.3.579.2. 462 Unknown [id number] 2.16.840.1.070844.3.579.2. 462 Unknown [id number] 2.16.840.1.151985.3.579.2. 462 Unknown [id number] 2.16.840.1.061068.3.579.2. 462 Unknown [id number] 2.16840.1.947965.3.579.2. 462 Unknown [id number] 2.16840.1.532706.3.579.2. 462 Unknown [id number] 2.16.840.1.493272.3.579.2. 462 Unknown [id number] 2.16840.1.360496.3.579.2. 462 Unknown [id number] 2.840.1.393936.3.579.2. 462 Social History Date Type Detail Facility Assertion Tobacco smoking consumption unknown (finding) [facility] Work Phone: Start: 04-16-2022 End: 06-16-2024 Non-smoker Non-smoker [facility] Work Phone: Start: 10-18-2020 End: 04-08-2023 Tobacco smoking status NHIS Unknown if ever smoked [facility] Start: 03-29-2019 None [facility] Start: 03-29-2019 Spouse/ Signif icant Other [facility] Start: 07-07-2019 Non-smoker [facility] Start: 1950 Sex Assigned At Male W [facility] Start: 04-16-2022 End: 04-08-2023 Tobacco smoking status NHIS Never smoked tobacco [facility] Work Phone: Start: 04-16-2022 Tobacco use and exposure Smokeless tobacco non-user [facility] Work Phone: Start: 06-12-2022 End: 12-15-2024 Alcohol intake Lifetime non-drinker (finding) [facility] Work Phone: Start: 04-16-2022 End: 06-16-2024 Tobacco use panel [facility] Work Phone: Start: 1950 Sex Assigned At Not on file [facility] Work Phone: Start: 06-02-2022 End: 06-16-2024 Exposure to SARS-CoV-2 (event) Not sure [facility] Start: 02-26-2023 End: 03-08-2023 Exposure to SARS-CoV-2 (event) Unable to assess [facility] Work Phone: Start: 01-21-2022 End: 06-09-2024 Sex Male (finding) [facility] Medical Equipment Procedure Code Equipment Code Equipment Origin al Text Equipment Identifier Dates Cystoscopy, with retrograde pyelogram and ureteral stent insertion ([id number]) Polymeric ureteral stent [id number] FDA Start: 04-09-2023 STEPHANIE COHEN LG FDA Start: 09-18-2018 STEPHANIE COHEN LG FDA Start: 09-18-2018 MESH,PERFIX FLAT PRESHAPED FDA Start: 07-09-2019 CLIP,HEMOLOCK LG WECK FDA Start: 09-18-2018 CLIP,HEMOLOCK LG WECK FDA Start: 09-18-2018 MESH,PERFIX FLAT PRESHAPED FDA Start: 07-09-2019 CLIP,HEMOLOCK LG WECK FDA Start: 09-18-2018 CLIP,HEMOLOCK LG WECK FDA Start: 09-18-2018 MESH,PERFIX FLAT PRESHAPED FDA Start: 07-09-2019 CLIP,HEMOLOCK LG WECK FDA Start: 09-18-2018 CLIP,HEMOLOCK LG WECK FDA Start: 09-18-2018 MESH,PERFIX FLAT PRESHAPED FDA Start: 07-09-2019 CLIP,HEMOLOCK LG WECK FDA Start: 09-18-2018 CLIP,HEMOLOCK LG WECK FDA Start: 09-18-2018 MESH,PERFIX FLAT PRESHAPED FDA Start: 07-09-2019 CLIP,HEMOLOCK LG WECK FDA Start: 09-18-2018 CLIP,HEMOLOCK LG WECK FDA Start: 09-18-2018 MESH,PERFIX FLAT PRESHAPED FDA Start: 07-09-2019 CLIP,HEMOLOCK LG WECK FDA Start: 09-18-2018 CLIP,HEMOLOCK LG WECK FDA Start: 09-18-2018 MESH,PERFIX FLAT PRESHAPED FDA Start: 07-09-2019 CLIP,HEMOLOCK LG WECK FDA Start: 09-18-2018 CLIP,HEMOLOCK LG WECK FDA Start: 09-18-2018 MESH,PERFIX FLAT PRESHAPED FDA Start: 07-09-2019 CLIP,HEMOLOCK LG WECK FDA Start: 09-18-2018 CLIP,HEMOLOCK LG WECK FDA Start: 09-18-2018 MESH,PERFIX FLAT PRESHAPED FDA Start: 07-09-2019 CLIP,HEMOLOCK LG WECK FDA Start: 09-18-2018 CLIP,HEMOLOCK LG WECK FDA Start: 09-18-2018 MESH,PERFIX FLAT PRESHAPED FDA Start: 07-09-2019 CLIP,HEMOLOCK LG WECK FDA Start: 09-18-2018 CLIP,HEMOLOCK LG WECK FDA Start: 09-18-2018 MESH,PERFIX FLAT PRESHAPED FDA Start: 07-09-2019 CLIP,HEMOLOKRISITNE LG WECK FDA Start: 09-18-2018 CLIP,HEMALEJO LG WECK FDA Start: 09-18-2018 MESH,PERFIX FLAT PRESHAPED FDA Start: 07-09-2019 CLIP,HEMALEJO LG WECK FDA Start: 09-18-2018 CLIP,HEMALEJO LG WECK FDA Start: 09-18-2018 MESH,PERFIX FLAT PRESHAPED FDA Start: 07-09-2019 CLIP,HEMALEJO LG WECK FDA Start: 09-18-2018 CLIP,HEMALEJO LG WECK FDA Start: 09-18-2018 MESH,PERFIX FLAT PRESHAPED FDA Start: 07-09-2019 CLIP,HEMALEJO LG WECK FDA Start: 09-18-2018 CLIP,HEMALEJO LG WECK FDA Start: 09-18-2018 MESH,PERFIX FLAT PRESHAPED FDA Start: 07-09-2019 CLIP,HEMALEJO LG LADANCK FDA Start: 09-18-2018 CLIP,HEMALEJO LG WECK FDA Start: 09-18-2018 MESH,PERFIX FLAT PRESHAPED FDA Start: 07-09-2019 Goals Date Patient Goal Desired Activity /State Functional Status Date Assessment Result Facility 12-15-2024 Functional status 130/70 [facility] Work Phone: 12-15-2024 Vital signs 57 12/15/2024 2: 53 PM EDT Nichole Nguyen MA [facility] 12-15-2024 [facility] Work Phone: 06-16-2024 Patient Health Questionnaire 2 item (PHQ-2) [Reported] [facility] Work Phone: 04-13-2023 Functional status [facility] Work Phone: NEGATED: Highlighted row Functional performance Functional status health issues are not documented Disease [facility] Work Phone: Mental Status Date Assessment Result Facility 04-13-2023 Cognitive function Voice/Name [facility] Work Phone: 12-08-2021 Cognitive function Voice/Name [facility] Work Phone: NEGATED: Highlighted row Cognitive function [Interpretation] Cognitive status health issues are not documented Disease [facility] Work Phone: Clinical Notes 05-22-2015 to 12-15-2024 Abel Madrigal MD - 12/15/2024 3:00 PM EDT Note Date & Type Note Facility 12-15-2024 History of Present illness Narrative Subjective Patient ID: Andrés Guevara is a 74 y.o. male who presents for 6 month follow up (Review labs ). Here for fu with labs Feels fine Review of Systems Constitutional: Negative. Negative for [...] adenopathy. Skin: General: Skin is warm. Findings: Lesion (wart on the left forarm, cryo doen with liquid n) present. No rash. Neurological: General: No focal deficit present. Mental Status: He is alert and oriented to person, place, and time. Psychiatric: Mood and Affect: Mood normal. Behavior: Behavior normal. BP 130/70 Pulse 57 Ht 1.778 m (5' 10) Wt 74.4 kg (164 lb) SpO2 96% BMI 23.53 kg/m PSA external Date/Time Value Ref Range Status 02/06/2024 01:45 PM 0.01 ng/mL Final Assessment/Plan Problem List Items Addressed This Visit Chronic kidney failure, stage 3 (moderate) (Multi) - Primary Relevant Orders CBC and Auto Differential Comprehensive Metabolic Panel HTN (hypertension) Relevant Orders CBC and Auto Differential Comprehensive Metabolic Panel Vitamin D deficiency Relevant Orders CBC and Auto Differential Comprehensive Metabolic Panel Vitamin D 25-Hydroxy,Total (for eval of Vitamin D levels) HTN addressed as follow: MONITOR BP GOAL BP LOWER THAN 130/80 LOW SALT EXERCISE DAILY does his PSA Flu shot at pharmacy Fu 6 mo bw documented in this encounter [facility] Work Phone: 12-02-2024 Evaluation note Diagnosis Onset Date Resolution Essential (primary) hypertension chronic December 02, 2024 8:54am History of coronary artery stent placement May 22, 2015 chronic December 02, 2024 8:54am Hyperlipidemia chronic November 8:54am [facility] Work Phone: [phone] 433-740104-25-2025 Radiology Diagnostic study note [facility] Imaging Services [address], [place] [address] HIP, UNI W/ Pelvis 2-3 Views MR#: [id number] Acct: [id number] Name: ANDRÉS GUEVARA Rep #: [id number] : 1950 M 74 From: Jesica Mendoza MD PCP: Dr. Abel Madrigal MD Status: REG CLI Study:HIP, UNI W/ Pelvis 2-3 Views Date of Ex am: 06/20/24 Exam# [id number] Ordering Dr: Abel Boyce MD PROCEDURE: HIP, UNI W/ PELVIS 2-3 VIEWS 06/20/2024 REASON FOR EXAM: RIGHT INGUINAL PAIN. PAIN INCREASED WITH WALKING AND FAST PACE WALKING. TECHNIQUE: Three (3) view of the right hip COMPARISON: No relevant prior. FINDINGS: No fractures, dislocations, or subluxations. No other osseous abnormalities. Soft tissues are unremarkable. RAD/HIP, UNI W/ Pelvis 2-3 Views IMPRESSION: No osseous abnormalities. Reading Location: [facility] CC: Dr. Abel Madrigal MD ~ Hollock Maker: Signed [facility]04-21-2025 Evaluation + Plan note* Assessment & Plan Note - Abel Madrigal MD - 06/16/2024 3:00 PM EDTAssociated Problem(s): Chronic kidney failure, stage 3 (moderate) (Multi) Orders: CBC and Auto Differential; Future Comprehensive Metabolic Panel; Future Vitamin D 25-Hydroxy,Total (for eval of Vitamin D levels); Future Albumin-Creatinine Ratio, Urine Random; Future [facility] Work Phone: [phone]) 752-866804-21-2025 Evaluation + Plan note* Assessment & Plan Note - Abel Madrigal MD - 06/16/2024 3:00 PM EDTAssociated Problem(s): HTN (hypertension) Orders: CBC and Auto Differential; Future Comprehensive Metabolic Panel; Future amLODIPine (Norvasc) 5 mg tablet; Take 1 tablet (5 mg) by mouth 2 times a day. [facility] Work Phone: [phone]) 117-613204-21-2025 Evaluation + Plan note* Assessment & Plan Note - Abel Madrigal MD - 06/16/2024 3:00 PM EDTAssociated Problem(s): Hypercholesterolemia Orders: CBC and Auto Differential; Future Comprehensive Metabolic Panel; Future [facility] Work Phone: [phone] 758-321704-21-2025 Evaluation + Plan note* Assessment & Plan Note - Abel Madrigal MD - 06/16/2024 3:00 PM EDTAssociated Problem(s): Malignant neoplasm of prostate (Multi) Orders: CBC and Auto Differential; Future Comprehensive Metabolic Panel; Future [facility] Work Phone: [phone] 429-871304-21-2025 History of Present illness Narrative* Abel Madrigal MD - 06/16/2024 3:00 PM EDT Subjective Reason for Visit: Andrés Guevara is an 73 y.o. male here for a Medicare Wellness visit. Past Medical, Surgical, and Family History reviewed and updated in chart. Reviewed all medications by prescribing practitioner or clinical pharmacist (such as prescriptions,OTCs, herbal therapies and supplements) and documented in the medical record. HERE FOR FU WITH LABS C/o off and on right inguinal pain WELLNESS EXAM Patient Care Team: Abel Madrigal MD as PCP - General Abel Madrigal MD as PCP - tna Medicare Advantage PCP Review of Systems Constitutional: [...] reviewed and are negative. Objective Vitals: BP 143/78 (BP Location: Left arm, Patient Position: Sitting) Pulse 60 Ht 1.778 m (5' 10) Wt 76.2 kg (168 lb) BMI 24.11 kg/m Physical Exam Vitals reviewed. Constitutional: General: [...] sounds are normal. Palpations: Abdomen is soft. There is no mass. Tenderness: There is no abdominal tenderness. Hernia: No hernia is present. Musculoskeletal: General: Tenderness (right inguinal) present. Normal range of motion. Cervical back: Normal range of motion. No rigidity. Lymphadenopathy: Cervical: No cervical adenopathy. Skin: General: Skin is warm. Findings: No rash. Neurological: General: No focal deficit present. Mental Status: He is alert and oriented to person, place, and time. Psychiatric: Mood and Affect: Mood normal. Behavior: Behavior normal. Assessment & Plan Routine general medical examination at health care facility Orders: 1 Year Follow Up In Primary Care - Wellness Exam; Future Chronic kidney failure, stage 3 (moderate) (Multi) Orders: CBC and Auto Differential; Future Comprehensive Metabolic Panel; Future Vitamin D 25-Hydroxy,Total (for eval of Vitamin D levels); Future Albumin-Creatinine Ratio, Urine Random; Future Primary hypertension Orders: CBC and Auto Differential; Future Comprehensive Metabolic Panel; Future amLODIPine (Norvasc) 5 mg tablet; Take 1 tablet (5 mg) by mouth 2 times a day. Hypercholesterolemia Orders: CBC and Auto Differential; Future Comprehensive Metabolic Panel; Future Malignant neoplasm of prostate (Multi) Orders: CBC and Auto Differential; Future Comprehensive Metabolic Panel; Future Right inguinal pain Orders: XR hip right with pelvis when performed 2 or 3 views; Future Advanced Care Planing discussed, diagnosis , treatment and prognosis discussed with pt for 16 minutes,pt has capacity to make own decision, pt has a living will, to bring a copy for the chart. Labs reviewed with pt Chronic kidney disease addressed as follow: AVOID NSAIDS INCREASE FLUID INTAKE Sees for prostate ca Inguinal pain most likely OA May call for xr report Fu 6 mo bw documented in this [facility] Work Phone: [phone]) 186-565504-21-2025 Miscellaneous Notes* Assessment & Plan Note - Abel Madrigal MD - 06/16/2024 3:00 PM EDTAssociated Problem(s): Chronic kidney failure, stage 3 (moderate) (Multi) Orders: CBC and Auto Differential; Future Comprehensive Metabolic Panel; Future Vitamin D 25-Hydroxy,Total (for eval of Vitamin D levels); Future Albumin-Creatinine Ratio, Urine Random; Future * Assessment & Plan Note - Abel Madrigal MD - 06/16/2024 3:00 PM EDT Associated Problem(s): HTN (hypertension) Orders: CBC and Auto Differential; Future Comprehensive Metabolic Panel; Future amLODIPine (Norvasc) 5 mg tablet; Take 1 tablet (5 mg) by mouth 2 times a day. * Assessment & Plan Note - Abel Madrigal MD - 06/16/2024 3:00 PM EDT Associated Problem(s): Hypercholesterolemia Orders: CBC and Auto Differential; Future Comprehensive Metabolic Panel; Future * Assessment & Plan Note - Abel Madrigal MD - 06/16/2024 3:00 PM EDT Associated Problem(s): Malignant neoplasm of prostate (Multi) Orders: CBC and Auto Differential; Future Comprehensive Metabolic Panel; Future documented in this [facility] Work Phone: 1(306) 475-825102-03-2025 Evaluation note* Diagnosis Onset Date Resolution Status Admit Date Atherosclerosis of coronary artery of [place] heart without angina pectoris chronic March 31, 2024 3:23pm Essential (primary) hypertension chronic March 31 3:23pm History of coronary artery stent placement May 22, 2015 chronic March 31, 2 025 3:23pm Hyperlipidemia chronic March 312024 3:23pm [facility] Work Phone: [phone] 549-596210-21-2024 History of Present illness Narrative* Abel Madrigal MD - 12/17/2023 3:00 PM EDT Subjective Patient ID: Andrés Guevara is a 73 y.o. male who presents for Follow-up (6 mo fu labs). Here for fu with labs Feels fine H/o seborrhoic dermatitis scalp need refill on clobetasol and ketoconazole Review of Systems Constitutional: Negative. Negative for [...] Affect: Mood normal. Behavior: Behavior normal. BP 152/76 (BP Location: Right arm, Patient Position: Sitting) Pulse 52 Ht 1.778 m (5' 10) Wt73.9 kg (163 lb) BMI 23.39 kg/m PSA external Date/Time Value Ref Range Status 01/05/2023 12:54 PM 0.01 ng/mL Final Assessment/Plan Problem List Items Addressed This Visit Chronic kidney failure, stage 3 (moderate) (Multi) Relevant Orders CBC and Auto Differential Comprehensive Metabolic Panel Vitamin D 25-Hydroxy,Total (for eval of Vitamin D levels) HTN (hypertension) - Primary Relevant Orders CBC and Auto Differential Comprehensive Metabolic Panel Vitamin D deficiency Hypercholesterolemia Relevant Orders CBC and Auto Differential Comprehensive Metabolic Panel Other Visit Diagnoses Need for immunization against influenza Relevant Orders Flu vaccine, trivalent, preservative free, HIGH-DOSE, age 65y+ (Fluzone) (Completed) Seborrheic dermatitis Relevant Medications ketoconazole (NIZOral) 2 % shampoo clobetasol (Temovate) 0.05 % cream HTN addressed as follow: MONITOR BP GOAL BP LOWER THAN 130/80 LOW SALT EXERCISE DAILY Labs reviewed with pt Chronic kidney disease addressed as follow: AVOID NSAIDS INCREASE FLUID INTAKE Fu 6 mo bw documented in this [facility] Work Phone: [phone]) 474-331905-07-2024 History of Present illness Narrative* Abel Madrigal MD - 07/03/2023 3:00 PM EDT Subjective Reason for Visit: Andrés Guevara is an 73 y.o. male here for a Medicare Wellness visit. Past Medical, Surgical, and Family History reviewed and updated in chart. Reviewed all medications by prescribing practitioner or clinical pharmacist (such as prescriptions,OTCs, herbal therapies and supplements) and documented in the medical record. FEELS FINE, NO COMPLANT Labs Wellness exam Patient Care Team: Abel Madrigal MD as PCP - General Abel Madrigal MD as PCP - [employer] Medicare Advantage PCP Amarilis Swanson RN as Textile Examiner (Case Management) Review of Systems Constitutional: Negative. Negative for [...] reviewed and are negative. Objective Vitals: BP 126/75 (BP Location: Right arm, Patient Position: Sitting) Pulse 60 Ht 1.778 m (5' 10) Wt74.8 kg (165 lb) BMI 23.68 kg/m Physical Exam Vitals reviewed. Constitutional: General: [...] Visit Chronic kidney failure, stage 3 (moderate) (Multi) Relevant Orders CBC and Auto Differential Comprehensive Metabolic Panel Phosphorus HTN (hypertension) Relevant Orders CBC and Auto Differential Comprehensive Metabolic Panel Vitamin D deficiency Relevant Orders CBC and Auto Differential Comprehensive Metabolic Panel Vitamin D 25-Hydroxy,Total (for eval of Vitamin D levels) Hypercholesterolemia Relevant Orders CBC and Auto Differential Comprehensive Metabolic Panel Lipid Panel Other Visit Diagnoses Routine general medical examination at health care facility - Primary Relevant Orders CBC and Auto Differential Comprehensive Metabolic Panel Advanced Care Planing discussed, diagnosis , treatment and prognosis discussed with pt ,pt has capacity to make own decision, pt has a living will, to bring a copy for the chart. Reports up to date with pneumonia and shingles shot Up to date with US aorta HTN addressed as follow: MONITOR BP GOAL BP LOWER THAN 130/80 LOW SALT EXERCISE DAILY Labs reviewed with pt Asaf melo dc , pt has stopped and phosphorous was normal Chronic kidney disease addressed as follow: AVOID NSAIDS INCREASE FLUID INTAKE MDM 1) COMPLEXITY: MORE THAN 1 STABLE CHRONIC CONDITION ADDRESSED 2)DATA: TESTS INTERPRETED AND OR ORDERED, TOOK INDEPENDENT HISTORY OR RECORDS REVIEWED 3)RISK: MODERATE RISK DUE TO NATURE OF MEDICAL CONDITIONS/COMORBIDITY OR MEDICATIONS ORDERED OR SURGICAL OR PROCEDURE REFERRAL, . documented in this [facility] Work Phone: 1(757) 764-563603-05-2024 History of Present illness Narrative* Abel Madrigal MD - 05/01/2023 3:45 PM EST Subjective Patient ID: Andrés Guevara is a 72 y.o. male who presents for Follow-up (1 wk fu labs). Here for fu Feels better Still has some fatigue Review of Systems Constitutional: Positive for fatigue. Negative for chills and fever. HENT: Negative. [...] Affect: Mood normal. Behavior: Behavior normal. BP 149/73 (BP Location: Left arm, Patient Position: Sitting) Pulse 73 Ht 1.778 m (5' 10) Wt 72.1 kg (159 lb) BMI 22.81 kg/m PSA external Date/Time Value Ref Range Status 01/05/2023 12:54 PM 0.01 ng/mL Final Assessment/Plan Problem List Items Addressed This Visit Chronic kidney failure, stage 3 (moderate) (CMS/HCC) - Primary Relevant Orders CBC and Auto Differential Comprehensive Metabolic Panel GERD (gastroesophageal reflux disease) Relevant Medications famotidine (Pepcid) 20 mg tablet HTN (hypertension) Relevant Medications losartan (Cozaar) 25 mg tablet Vitamin D deficiency Relevant Medications ergocalciferol (Vitamin D-2) 1.25 MG (54599 UT) capsule Labs reviewed with pt Clinically improving Resume plavix STOP ASA WILL RESUME LOSARTAN BUT LOWER DOSAGE, WILL MONITOR CR Fu before MDM 1) COMPLEXITY: MORE THAN 1 STABLE CHRONIC CONDITION ADDRESSED 2)DATA: TESTS INTERPRETED AND OR ORDERED, TOOK INDEPENDENT HISTORY OR RECORDS REVIEWED 3)RISK: MODERATE RISK DUE TO NATURE OF MEDICAL CONDITIONS/COMORBIDITY OR MEDICATIONS ORDERED OR SURGICAL OR PROCEDURE REFERRAL, . documented in this [facility] Work Phone: 1([phone]) 559-603002-20-2024 History of Present illness Narrative* Abel Madrigal MD - 04/17/2023 12:30 PM EST Subjective Patient ID: Andrés Guevara is a [...] Sitting) Pulse 73 Ht 1.778 m (5' 10) Wt 70.8 kg (156 lb) BMI 22.38 kg/m PSA external Date/Time Value Ref Range Status 01/05/2023 12:54 PM 0.01 ng/mL Final Assessment/Plan Problem List Items Addressed This Visit Chronic kidney failure, stage 3 (moderate) (CMS/HCC) - Primary Relevant Orders CBC and Auto Differential Comprehensive Metabolic Panel Phosphorus POCT UA Automated manually resulted (Completed) Malignant neoplasm of prostate (CMS/HCC) Other Visit Diagnoses H/O urinary tract infection Relevant Orders CBC and Auto Differential Comprehensive Metabolic Panel Phosphorus POCT UA Automated manually resulted (Completed) Nephrolithiasis Relevant Orders CBC and Auto Differential Comprehensive Metabolic Panel Phosphorus POCT UA Automated manually resulted (Completed) Bilateral lower extremity edema Relevant Orders Compression Stockings 15-20 mmHg Ua negative Clinically improving Labs reviewed with pt Revel 1 week with bw MDM 1) COMPLEXITY: MORE THAN 1 STABLE CHRONIC CONDITION ADDRESSED 2)DATA: TESTS INTERPRETED AND OR ORDERED, TOOK INDEPENDENT HISTORY OR RECORDS REVIEWED 3)RISK: MODERATE RISK DUE TO NATURE OF MEDICAL CONDITIONS/COMORBIDITY OR MEDICATIONS ORDERED OR SURGICAL OR PROCEDURE REFERRAL, . documented in this [facility] Work Phone: [phone]) 537-187502-16-2024 Discharge summary Author Wesley Martinez [facility] April 13, 2023 3:43pm Note Date/Time April 13, 2023 3:31pm [facility] Medical Records Department [address] [place] [address] Discharge Summary 04/13/23 1529 MR#: [id number] Acct: [id number] Name: ANDRÉS GUEVARA Rep #:[id number] : 1950 72 From: Wesley Martinez DO PCP: Dr. Abel Madrigal MD Status: [facility] Prov[facility] Date of Admission: 04/08/23 Primary Care Physician: Dr. Abel Madrigal MD Consultations 04/08/23 21:21 Consult: Urology Routine Consulting Provider: Rufus Lane Reason for Consult: stone EMERGENT Consult: No Notified: Yes Date Notified: 04/08/23 Time Notified: 21:21 Method of Notification: ED Physician Initiated 04/08/23 22:47 Consult: Manufacturer / Pulmonary Medicine Routine Consulting Provider: Intensivists/Pulmonary Med Reason for Consult: sepsis with hypotension EMERGENT Consult: No MD Notified: Yes Date Notified: 04/08/23 Time Notified: 21:34 Method of Notification: ED Physician Initiated Consult: Nephrology Routine Consulting Provider: Mau Acharya Reason for Consult: KAROL on CKD, SEPSIS, Pyelonephritis EMERGENT Consult: No Notified: Yes Date Notified: 04/08/23 Time Notified: 21:37 Method of Notification: Text Consult: Urology Routine Consulting Provider: Rufus Lane Reason for Consult: Left ureteral stone EMERGENT Consult: No Notified: Yes Date Notified: 04/08/23 Time Notified: 21:34 Method of Notification: ED Physician Initiated Reason For Visit: SEPSIS WITH UTI Diagnosis Discharge Diagnosis (1) Sepsis associated hypotension: Status: Acute Code(s): A41.9 - Sepsis, unspecified organism; I95.9 - Hypotension, unspecified (2) UTI (urinary tract infection): Status: Acute Code(s): N39.0 - Urinary tract infection, site not specified Qualifiers: Urinary tract infection type: acute pyelonephritis Qualified Code(s): N10 - Acute pyelonephritis Plan septic shock. * resolved * 03/30 to pyelonephritis and bacteremia. * RIJ TLC placed 04/09 * was on norepi gtt and vasopressin, since weaned off. Was also on stress-dose hydrocortisone, which has also been weaned off. * Blood and urine Cx both showing E. coli. * on CTX. Continue abx through the . Discharge with levofloxacin. acute hypoxic respiratory failure * Improving * POA with pulse of 79% on high flow oxygen * overall improved. * wean oxygen as able * pt received furosemide 40 IV on 04/10 and 04/12. Acute pyelonephritis. * 2/2 obstructing calculi * underwent cystoscopy w left stent placement and retrograde pyelogram 04/09 * UCx w E. coli. * DC gibbs * Follow up with as outpt. Bacteremia * + E. coli, suspected source from pyelonephritis. * On ceftriaxone. KAROL * POA * admission creatinine 3.33, up to 3.61, down to 2. Baseline around 1.6 * FENA 0.54% * suspect prerenal and ischemic ATN * Nephrology following. Transaminitis * Improving * AST and ALT up to 402 and 500, respectively. * suspect due to septic shock. * monitor Leukocytosis * improved today. * secondary to underlying sepsis, infection and steroids (which have been discontinued 04/11) Thrombocytopenia * imprved * trending down during course of admission. Suspect due to underlying sepsis and DIC. * doubt TTP, HIT DIC, suspected * clinically improving. * noted coagulopathy with elevated aPTT, PT, Fibrinogen, D-dimer. Thrombocytopenia, worsening anemia. * consider idania-smear, LDH, haptoglobin if concern for hemolysis Chronic conditions: * CAD status post stents: continue aspirin, Plavix, and atorvastatin. Patient not on beta-john, reason unclear follow-up with cardiology as an outpatient.3. * hypertension: antihypertensive held given shock * Dyslipidemia: Patient on atorvastatin continued. * History of prostate cancer: Status post prostatectomy, in remission. DVT prophylaxis, high risk: SCDs 04/11: Discussed with the patient's daughters. 1 daughter was in the room and the other daughter was contacted on the phone. Explained in depth the patient'scourse and eventual plan. Also discussing with the patient about returning to work. Told him I could not say that he could return to work next week but I advised against its given the severity of his illness and the fact that he is still in the hospital should give more time before he can get back to his normalroutine. 04/12: Discussed with the patient daughters again. 1 daughter was very anxious about Tanisha including the DIC and septic shock. Reassured her that when I put those diagnoses and chest reflect what was actually going on with the patient. Overall, he is doing much better and I do anticipate him being able jimy discharged. I did caution her in regards to researching these very diagnosesthat many times the initial search options will be worst-case scenarios. Told her not to focus on those but to look more at the patient's overall improvement. Also reassured her about the hematuria likely combination of the ball of the catheter abutting his bladder compounded by his thrombocytopenia. Hematuria since resolved. We also did interdisciplinary rounds today and addressed with both daughters, the 1 who is a physician fundraising assistant over the phone. 04/13: DC TLC, DC gibbs. Ambulatory pulse ox WNL, home oxygen not needed. DC home. DW pt's dtr. Medications at Discharge Home Medications aspirin 81 mg chewable tablet 81 mg PO DAILY@0800 09/18/18 famotidine 20 mg tablet (Acid [place]ners[place] Maker (famotidine)) 20 mg PO QHS gerd 04/11/19 ascorbate calcium (vitamin C) 500 mg tablet 500 mg PO DAILY 07/01/19 multivitamin-ferrous fumarate-folic acid 18 mg-400 mcg tablet (Centrum Complete)1 tab PO QHS 07/01/19 ergocalciferol (vitamin D2) 1,250 mcg (50,000 unit) capsule (Vitamin D2) 1,250 mcg PO Q2W 10/07/19 losartan 100 mg tablet 100 mg PO DAILY htn #90 tabs 04/25/22 atorvastatin 40 mg tablet 40 mg PO .qod #45 tabs 08/17/22 clopidogrel 75 mg tablet 75 mg PO DAILY #90 tabs 08/30/22 amlodipine 2.5 mg tablet 2.5 mg PO BID #180 tabs 09/15/22 levofloxacin 750 mg tablet 750 mg PO Q48H #3 tabs 04/13/23 sodium chloride 0.65 % nasal spray aerosol (Deep Sea Nasal) 2 spray NASAL TID PRN PRN NASAL DRYNESS #0 mL 04/13/23 Hospital Course Operations None Procedures Central line placement Summary of Care Provided Minutes Spent on Discharge: 50 Weight / BMI Weight Weight: 78.7 kg Body Mass Index (BMI) 24.9 ABG / Lab / Microbiology Data 04/13/23 06:40 04/13/23 06:40 Laboratory: Laboratory Results - last 24 hr 04/13/23 06:40: WBC 30.6 H*, RBC 3.22 L, Hgb 10.1 L, Hct 29.4 L, MCV 91.3, MCH 31.4, MCHC 34.4, RDW Std Deviation 49.1 H, RDW Coeff of Gaby 14.6, Plt Count 68 L, MPV 10.9, Immature Gran % (Auto) FOAM TANK LAMINATOR, Neut % (Auto) FOAM TANK LAMINATOR, Lymph % (Auto) FOAM TANK LAMINATOR, Fleming% (Auto) FOAM TANK LAMINATOR, Eos % (Auto) FOAM TANK LAMINATOR, Baso % (Auto) FOAM TANK LAMINATOR, Absolute Neuts (auto) 24.5 H, Absolute Lymphs (auto) 1.21, Total Counted 100, Neutrophils % (Manual) 87 H, Lymphocytes % (Manual) 4 L, Monocytes % (Manual) 8, Other Cells % 1, Nucleated RBC % 0.2, Differential Comment SCANNED, Diff Path Review June, Sodium 146 H, Potassium 3.9, Chloride 117 H, Carbon Dioxide 23.0, Anion Gap 6, BUN 59 H, Creatinine 1.70 H, Estim Creat Clear Calc 39.96, Est GFR (MDRD) Af Amer 51 L, Est GFR (MDRD) Non-Af 42 L, BUN/Creatinine Ratio 34.7 H, Glucose 99, Calcium 8.0L, Phosphorus 3.1, Total Bilirubin 1.20 H, AST 109 H, ALT 259 H, Alkaline Phosphatase 256 H, Total Protein 5.9 L, Albumin 1.9 L, Globulin 4.0, Albumin/Globulin Ratio 0.5 L Microbiology: Microbiology 04/08/23 22:36 Urine, Clean Catch Urine Culture - Final Escherichia coli 04/08/23 18:58 Blood Culture (Wb) - Anticubital Left Blood Culture - Final Escherichia coli 04/08/23 18:50 Blood Culture (Wb) - Anticubital Right Blood Culture - Preliminary 04/08/23 18:40 Stool Stool Occult Blood (ALFONSO) - Final Occult Blood Positive 04/08/23 18:30 Mucosa - Nose SARS-CoV-2, Influenza & RSV (PCR) - Final D/C Instructions Discharge Diet: No restrictions Return to work on: 04/23/23 Weight Bearing Status: Weight bearing as tolerated Call your doctor if you observe: Fever of 101 or Higher, Inability to urinate and - Meaningful Use Info Meaningful Use Diagnoses (Choose all that apply): None applicable Discharge Plan Admission Admit Date/Time: 04/08/23 21:29 Primary Reason for Your Visit: septic shock. Attending Provider: Wesley Martinez Primary Care Provider: Abel Madrigal Consulting Providers: Rufus Lane; Bubba Youngblood; Wenceslao Marquez; Teo Pelaez; Stephane Padilla; Gil Disla; Sruthi Billings; Dennys Melgoza; Lori Gomes; Maynor Reaves; Patricio Amador; Roger Feng; Oscar Calix; Carlos Burgos; Mau Acharya Discharge Orders/Prescriptions Prescriptions: New Deep Sea Nasal 0.65 % Aerosol,[place] 2 spray NASAL TID PRN PRN (Reason: NASAL DRYNESS) Qty: 0 0RF levofloxacin 750 mg tablet 750 mg PO Q48H Qty: 3 0RF Continued famotidine [Acid Innersole Maker (famotidine)] 20 mg tablet 20 mg PO QHS ergocalciferol (vitamin D2) [Vitamin D2] 1,250 mcg (50,000 unit) capsule 1,250 mcg PO Q2W Patient Comments: states every other month ascorbate calcium (vitamin C) 500 mg tablet 500 mg PO DAILY Centrum Complete 18-400 mg-mcg tablet 1 tab PO QHS atorvastatin 40 mg tablet 40 mg PO .qod Qty: 45 3RF amlodipine 2.5 mg tablet 2.5 mg PO BID Qty: 180 3RF Held aspirin 81 MG tablet,chewable 81 mg PO DAILY@0800 Hold Instructions: Until you see your primary care provider and labs show that your platelets are improved Patient Comments: states dr woods did not want held losartan 100 mg tablet 100 mg PO DAILY Qty: 90 4RF Hold Instructions: until you see your primary care physician and have labs that show your kidney function improving. clopidogrel 75 mg tablet 75 mg PO DAILY Qty: 90 4RF Hold Instructions: Hold until you follow-up your primary care doctor and havelaboratory work shows that your platelets and hemoglobin are improving. Patient Comments: stopped per instructions for surgery Referrals / Follow Up: Rufus Lane MD [Med Staff - Active Staff] - Within 1 Month Abel Madrigal MD [Primary Care Provider] - Within 2 Weeks Disposition Disposition (needs filled in before D/C Order can be placed): Home, Self Care Charges/Coding Visit Charges Inpatient E&M: 58130 Disch Hosp >30min 04/13/23 1543 <Electronically signed by Wesley Martinez DO> Cosigner Signature (if applicable): CC: Dr. Wesley Martinez DO; Dr. Abel Madrigal MD~ Signed [facility] Work Phone: 1(134) 192-523702-16-2024 Progress note Author Wesley Martinez [facility] April 13, 2023 3:29pm Note Date/Time April 13, 2023 8:13am [facility] Medical Records Department [address] [facility] [place] [address] Progress Note - Hospitalist 04/13/23 0810 MR#: [id number] Acct: [id number] Name: ANDRÉS GUEVARA Rep #:[id number] : 1950 72 From: Wesley Martinez DO PCP: Dr. Abel Madrigal MD Status: ADM IN Location: [place] [address] Reason for Visit Reason for Visit: Diagnoses Sepsis, unspecified organism (04/08/23) Sarcoidosis of lung (04/08/23) Hypotension, unspecified (04/08/23) Acute pyelonephritis (04/08/23) Acute kidney failure, unspecified (04/08/23) Chronic kidney disease, stage 3a (04/08/23) Calculus of kidney (04/08/23) Urinary tract infection, site not specified (04/08/23) Severe sepsis with septic shock (04/08/23) Subjective Subjective Feeling well. Objective Data Objective Data Vital Signs: Vital Signs Temp Pulse Resp BP Pulse Ox O2 Del Method O2 Flow Rate 36.7 C 66 18 124/70 H 98 Nasal Cannula 2 04/13/23 03:20 04/13/23 03:20 04/13/23 03:20 04/13/23 03:20 04/13/23 07:51 04/13/23 04:04 04/13/23 07:51 FiO2 30 04/11/23 06:00 Oxygen Flow Rate (L/min) 2 Oxygen Delivery Method Nasal Cannula Weight: 78.7 kg Body Mass Index (BMI) 24.9 Intake & Output: Intake and Output for Last 24 Hours 04/11/23 04/12/23 04/13/23 23:59 23:59 23:59 Intake Total 400 / 400 1450.5833 / 1450.5833 Output Total 1675 / 1675 4600 / 4600 650 / 650 Balance -1275 / -1275 -3149.4167 / -3149.4167 -650 / -650 Lab / Micro Data 04/13/23 06:40 04/13/23 06:40 Labs: Laboratory Results - last 24 hr 04/12/23 06:50: Diff Path Review Reviewed 04/13/23 06:40: WBC 30.6 H*, RBC 3.22 L, Hgb 10.1 L, Hct 29.4 L, MCV 91.3, MCH 31.4, MCHC 34.4, RDW Std Deviation 49.1 H, RDW Coeff of Gaby 14.6, Plt Count 68 L, MPV 10.9, Immature Gran % (Auto) 6.100 H, Neut % (Auto) 80.0 H, Lymph % (Auto)4.0 L, Fleming % (Auto) 8.2, Eos % (Auto) 1.2, Baso % (Auto) 0.5, Absolute Neuts (auto) 24.5 H, Absolute Lymphs (auto) 1.21, Nucleated RBC % 0.2 Micro: Microbiology 04/08/23 22:36 Urine, Clean Catch Urine Culture - Final Escherichia coli 04/08/23 18:58 Blood Culture (Wb) - Anticubital Left Blood Culture - Final Escherichia coli 04/08/23 18:50 Blood Culture (Wb) - Anticubital Right Blood Culture - Preliminary 04/08/23 18:40 Stool Stool Occult Blood (ALFONSO) - Final Occult Blood Positive 04/08/23 18:30 Mucosa - Nose SARS-CoV-2, Influenza & RSV (PCR) - Final Physical Exam Narrative gibbs catheter with roshan colored urine. Const alert and no apparent distress HEENT head/scalp atraumatic and moist oral mucous membranes Resp normal respiratory effort and no retractions Cardio regular rate, regular rhythm, S1 normal heart sound and S2 normal heart sound GI normal to inspection, nondistended, normoactive bowel sounds, soft to palpation,non-tender and non-distended Extremity normal to inspection Assessment & Plan Assessment/Plan (1) Sepsis associated hypotension: (2) UTI (urinary tract infection): QUALIFIERS: Urinary tract infection type: acute pyelonephritis Qualified Code(s): N10 - Acute pyelonephritis PLAN: Plan septic shock. * resolved * 03/30 to pyelonephritis and bacteremia. * RIJ TLC placed 04/09 * was on norepi gtt and vasopressin, since weaned off. Was also on stress-dose hydrocortisone, which has also been weaned off. * Blood and urine Cx both showing E. coli. * on CTX. Continue abx through the . Discharge with levofloxacin. acute hypoxic respiratory failure * Improving * POA with pulse of 79% on high flow oxygen * overall improved. * wean oxygen as able * pt received furosemide 40 IV on 04/10 and 04/12. Acute pyelonephritis. * 2 obstructing calculi * underwent cystoscopy w left stent placement and retrograde pyelogram 04/09 * UCx w E. coli. * DC gibbs * Follow up with as outpt. Bacteremia * + E. coli, suspected source from pyelonephritis. * On ceftriaxone. KAROL * POA * admission creatinine 3.33, up to 3.61, down to 2. Baseline around 1.6 * FENA 0.54% * suspect prerenal and ischemic ATN * Nephrology following. Transaminitis * Improving * AST and ALT up to 402 and 500, respectively. * suspect due to septic shock. * monitor Leukocytosis * improved today. * secondary to underlying sepsis, infection and steroids (which have been discontinued 04/11) Thrombocytopenia * imprved * trending down during course of admission. Suspect due to underlying sepsis and DIC. * doubt TTP, HIT DIC, suspected * clinically improving. * noted coagulopathy with elevated aPTT, PT, Fibrinogen, D-dimer. Thrombocytopenia, worsening anemia. * consider idania-smear, LDH, haptoglobin if concern for hemolysis Chronic conditions: * CAD status post stents: continue aspirin, Plavix, and atorvastatin. Patient not on beta-john, reason unclear follow-up with cardiology as an outpatient.3. * hypertension: antihypertensive held given shock * Dyslipidemia: Patient on atorvastatin continued. * History of prostate cancer: Status post prostatectomy, in remission. DVT prophylaxis, high risk: SCDs 04/11: Discussed with the patient's daughters. 1 daughter was in the room and the other daughter was contacted on the phone. Explained in depth the patient'scourse and eventual plan. Also discussing with the patient about returning to work. Told him I could not say that he could return to work next week but I advised against its given the severity of his illness and the fact that he is still in the hospital should give more time before he can get back to his normalroutine. 04/12: Discussed with the patient daughters again. 1 daughter was very anxious about Tanisha including the DIC and septic shock. Reassured her that when I put those diagnoses and chest reflect what was actually going on with the patient. Overall, he is doing much better and I do anticipate him being able jimy discharged. I did caution her in regards to researching these very diagnosesthat many times the initial search options will be worst-case scenarios. Told her not to focus on those but to look more at the patient's overall improvement. Also reassured her about the hematuria likely combination of the ball of the catheter abutting his bladder compounded by his thrombocytopenia. Hematuria since resolved. We also did interdisciplinary rounds today and addressed with both daughters, the 1 who is a physician fundraising assistant over the phone. 04/13: DC TLC, DC gibbs. Ambulatory pulse ox WNL, home oxygen not needed. DC home. DW pt's dtr. 04/13/23 1529 <Electronically signed by Wesley Martinez DO> Cosigner Signature (if applicable): CC: ~ Signed [facility] Work Phone: 1(368) 593-383202-16-2024 Progress note Author Teo Pelaez [facility] April 13, 2023 2:02pm Note Date/Time April 13, 2023 9:11am [facility] Medical Records Department [address] [place] [address] Progress Note - Manufacturer 04/13/23 0901 MR#: [id number] Acct: [id number] Name: ANDRÉS GUEVARA Rep #:[id number] : 1950 72 From: Teo Pelaez MD PCP: Dr. Abel Madrigal MD Status: ADM IN Location: [place] [address] Assessment & Plan Assessment/Plan (1) Septic shock due to urinary tract infection: (2) Calculus of left kidney: (3) Stage III chronic kidney disease: QUALIFIERS: Chronic kidney disease stage 3 subtype: stage 3a (GFR 45-59) Qualified Code(s): N18.31 - Chronic kidney disease, stage 3a (4) Sarcoidosis of lung: PLAN: Plan RECOMMENDATIONS: 1. Obtain walking oximetry on room air 2. Monitor clinically off stress dose steroids 3. Continue ceftriaxone to complete antibiotic course 4. Increase activity as tolerated 5. Potentially discharge if able to ambulate on room air 6. Consider chest x-ray if supplemental oxygen is still required IMPRESSIONS: 1. Septic shock secondary to pansensitive E. coli UTI with obstructing stones Patient has had intervention overnight with ureteral stent and subsequent hypotension. This pattern is highly suggestive of a gram-negative infection andblood cultures are already positive. Patient is on ceftriaxone at this time. Monitor off stress dose steroids. Will need to discuss with urology on long-term plan and need for Gibbs on discharge. No concerns from my perspective for recurrence of sepsis. 2. Acute kidney injury on CKD stage IIIa Continues to improve. Clinical suspicion for pre and post prerenal etiology. Patient did have significant hypotension on presentation, but also had obstructing stones. Both of these are resolved at this time. Patient did receive Lasix yesterday with good response. Potassium is appropriate at this time. 3. Acute hypoxic respiratory failure in the setting of sarcoidosis Patient does have a history of sarcoidosis last treated in March of last year. Patient does not appear to have a baseline oxygen requirement, but is currently on BiPAP as needed. Clinical suspicion for an element of congestive heart failure secondary to fluid resuscitation associated with problem #1. Willhold off on additional IV fluids at this time. Patient was challenged with Lasix yesterday. Patient will need a walking oximetry prior to discharge. Clinical suspicion for continued oxygen requirement secondary to nasal congestion. Will add nasal saline. Obtain walking oximetry on room air. If patient still requires supplemental oxygen, could consider chest x-ray for evaluation. 4. Advanced age/hyperlipidemia/history of prostate cancer/jaundice Complicates care, management, recovery and prognosis. Discussion with patient and daughter confirmed patient is a full CODE STATUS. Jaundice does appearto be improved. Patient does have nodules on the lung, but this may be secondary to sarcoid. This can be followed up as an outpatient. Subjective Subjective Patient did well overnight. Patient has reported some nasal congestion, but cough is much improved compared to previous. Patient was able to ambulate without difficulty from hypoxemia. Patient is not reporting any abdominal or flank pain. Patient tolerating a p.o. diet. Objective Data Objective Data Vital Signs: Vital Signs Temp Pulse Resp BP Pulse Ox O2 Del Method O2 Flow Rate 36.7 C 66 18 124/70 H 94 Room Air 2 04/13/23 03:20 04/13/23 03:20 04/13/23 03:20 04/13/23 03:20 04/13/23 08:35 04/13/23 08:35 04/13/23 07:51 FiO2 30 04/11/23 06:00 Oxygen Flow Rate (L/min) 2 Oxygen Delivery Method Room Air Weight: 78.7 kg Body Mass Index (BMI) 24.9 Intake & Output: Intake and Output for Last 24 Hours 04/11/23 04/12/23 04/13/23 23:59 23:59 23:59 Intake Total 400 / 400 1450.5833 / 1450.5833 Output Total 1675 / 1675 4600 / 4600 650 / 650 Balance -1275 / -1275 -3149.4167 / -3149.4167 -650 / -650 Lab / Micro Data Attestation: I reviewed the patient's lab results. 04/13/23 06:40 04/13/23 06:40 Labs: Laboratory Results - last 24 hr 04/12/23 06:50: Diff Path Review Reviewed 04/13/23 06:40: WBC 30.6 H*, RBC 3.22 L, Hgb 10.1 L, Hct 29.4 L, MCV 91.3, MCH 31.4, MCHC 34.4, RDW Std Deviation 49.1 H, RDW Coeff of Gaby 14.6, Plt Count 68 L, MPV 10.9, Immature Gran % (Auto) FOAM TANK LAMINATOR, Neut % (Auto) FOAM TANK LAMINATOR, Lymph % (Auto) FOAM TANK LAMINATOR, Fleming% (Auto) FOAM TANK LAMINATOR, Eos % (Auto) FOAM TANK LAMINATOR, Baso % (Auto) FOAM TANK LAMINATOR, Absolute Neuts (auto) 24.5 H, Absolute Lymphs (auto) 1.21, Total Counted 100, Neutrophils % (Manual) 87 H, Lymphocytes % (Manual) 4 L, Monocytes % (Manual) 8, Other Cells % 1, Nucleated RBC % 0.2, Differential Comment SCANNED, Diff Path Review June foll, Sodium 146 H, Potassium 3.9, Chloride 117 H, Carbon Dioxide 23.0, Anion Gap 6, BUN 59 H, Creatinine 1.70 H, Estim Creat Clear Calc 39.96, Est GFR (MDRD) Af Amer 51 L, Est GFR (MDRD) Non-Af 42 L, BUN/Creatinine Ratio 34.7 H, Glucose 99, Calcium 8.0 L, Total Bilirubin 1.20 H, AST 109 H, ALT 259 H, Alkaline Phosphatase 256 H, Total Protein 5.9 L, Albumin 1.9 L, Globulin 4.0, Albumin/Globulin Ratio 0.5 L Micro: Microbiology 04/08/23 22:36 Urine, Clean Catch Urine Culture - Final Escherichia coli 04/08/23 18:58 Blood Culture (Wb) - Anticubital Left Blood Culture - Final Escherichia coli 04/08/23 18:50 Blood Culture (Wb) - Anticubital Right Blood Culture - Preliminary 04/08/23 18:40 Stool Stool Occult Blood (ALFONSO) - Final Occult Blood Positive 04/08/23 18:30 Mucosa - Nose SARS-CoV-2, Influenza & RSV (PCR) - Final Physical Exam Const alert and no apparent distress Constitutional Narrative: Off BiPAP. Jaundice resolved HEENT normocephalic and head/scalp atraumatic Eyes PERRL, EOMs intact bilaterally and conjunctivae normal Eyes Narrative: Icterus resolved Neck full ROM and no lymphadenopathy Neck Narrative: Right IJ is clean, dry and intact Chest inspection of chest normal Resp normal respiratory effort Auscultation: clear to auscultation bilaterally; Negative for rales, rhonchi or wheezes Cardio regular rate, regular rhythm, S1 normal heart sound, S2 normal heart sound, no murmurs, no rub and no gallops Rate: tachycardic GI normal to inspection, nondistended, normoactive bowel sounds Extremity no clubbing, cyanosis or edema Extremity Narrative: Resolution of pain on palpation of the calves Skin no rashes or lesions noted Neuro oriented x3, CN's II-XII intact bilaterally and moves all extremities Psych cooperative Mood & Affect: flat affect Charges/Coding Visit Charges Inpatient E&M: 66888 Subs Hosp L2 04/13/23 1402 <Electronically signed by Teo Pelaez MD> Cosigner Signature (if applicable): CC: ~ Signed [facility] Work Phone: 1(395) 570-265702-16-2024 Discharge summary Author Fatmata Brower [facility] April 13, 2023 8:30am Note Date/Time April 08, 2023 5:57pm [facility] Medical Records Department [address] [place] [address] Emergency Department Summary 04/08/23 MR#: [id number] Acct: [id number] Name: ANDRÉS GUEVARA Rep #:[id number] : 1950 72 From: Fatmata Medina PCP: Dr. Abel Madrigal MD Status: ADM IN Location: [place] [address] HPI <LISETTE Swift - Last Filed: 04/08/23 21:20> History of Present Illness Chief Complaint: Fever Narrative Narrative: Patient is 72-year-old male with history of CAD, hyperlipidemia, kidney disease,GERD, [place] who presents to the emergency department with 3 days of generalized malaise, 2 days of fever and chills, nausea and vomiting, shortness of breath. Patient states that he is just so weak over the last 24 hours, is having troublegetting out of bed. Per the daughter who is also in the medical field, is not acting like himself. Denies any sick contacts, denies any recent antibiotic use. [facility] <LISETTE Swift - Last Filed: 04/08/23 21:20> [facility] Medical History (Updated 04/09/23 @ 10:[address] Mau Acharya MD) Atherosclerosis of coronary artery of [place] heart without angina pectoris Calculus of left kidney Essential (primary) hypertension GERD (gastroesophageal reflux disease) History of back problems History of non-ST elevation myocardial infarction (NSTEMI) (05/22/15) Hyperlipidemia Myocardial infarct Neuralgia of groin Nonrheumatic mitral (valve) insufficiency Prostate cancer Right inguinal hernia 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 Home Medications aspirin 81 mg chewable tablet 81 mg PO DAILY@0800 09/18/18 [History Last Taken Unknown] famotidine 20 mg tablet (Acid Innersole Maker (famotidine)) 20 mg PO QHS gerd 04/11/19 [History Last Taken Unknown] ascorbate calcium (vitamin C) 500 mg tablet 500 mg PO DAILY 07/01/19 [History Last Taken Unknown] multivitamin-ferrous fumarate-folic acid 18 mg-400 mcg tablet (Centrum Complete)1 tab PO QHS 05/05/20 [History Last Taken Unknown] ergocalciferol (vitamin D2) 1,250 mcg (50,000 unit) capsule (Vitamin D2) 1,250 mcg PO Q2W 10/07/19 [History Last Taken Unknown] losartan 100 mg tablet 100 mg PO DAILY htn #90 tabs 04/25/22 [Rx Last Taken Unknown] atorvastatin 40 mg tablet 40 mg PO .qod #45 tabs 08/17/22 [Rx Last Taken Unknown] clopidogrel 75 mg tablet 75 mg PO DAILY #90 tabs 08/30/22 [Rx Last Taken Unknown] amlodipine 2.5 mg tablet 2.5 mg PO BID #180 tabs 09/15/22 [Rx Last Taken Unknown] Allergy/AdvReac Type Severity Reaction Status Date / Time No Known Allergies Allergy Verified 04/08/23 17:12 Family History Father Hypertension Surgical History H/O shoulder surgery History of cataract surgery History of colonoscopy (2011) History of coronary artery stent placement (05/22/15) History of extraction of renal calculus History of inguinal herniorrhaphy (07/09/19) History of prostatectomy Social History Smoking Status: Never smoker alcohol intake: never substance use type: does not use caffeine: Yes Type: carbonated beverages Number of servings: 1 what type of physical activity do you participate in: walking and bicycling frequency: daily duration: 60-90 minutes/day seatbelt use: always do you feel safe at home: Yes ROS <Jalil Farrell NP-Za - Last Filed: 04/08/23 21:20> ROS ED ROS Narrative Constitutional: Negative for weight loss. Positive fever chills nausea vomiting Eyes: Negative for vision loss, vision change, double vision ENT: Negative for any sore throat, ear pain, congestion Cardiovascular: Negative for any chest pain, tightness, palpitations Respiratory: Negative for any cough, sputum production, hemoptysis, dyspnea, dyspnea on exertion, orthopnea Gastrointestinal: Negative for any abdominal pain, diarrhea, constipation, bloodin stool, blood in vomit. Positive for nausea vomiting : Negative for any urinary frequency, dysuria, retention, blood in urine Muscle skeletal: Negative for any neck pain, back pain. Positive for generalized malaise, muscle pains Neurological: Negative for any headache, syncope, dizziness Skin: Negative for any rashes, itching, abrasions, lacerations Psychiatric: Negative for any depression, anxiety, stress, suicidal ideation, homicidal ideation Hematologic: Negative for any excessive bruising, easy bleeding EXAM <LISETTE Swift - Last Filed: 04/08/23 21:20> Physical Exam Narrative Exam Narrative: Vital signs reviewed. Patient is in no distress, patient is slightly hypotensive, patient does look dry however he is alert and orient x 4. HEET: Head normocephalic atraumatic, TMs clear bilaterally. Posterior pharynx is clear, dry mucous membranes. Nares clear bilaterally. Neck: Supple with no lymphadenopathy or tenderness. No signs of meningismus. Cardiac: Regular rate and rhythm no murmurs gallops or rubs, equal peripheral pulses bilaterally. Respiratory: Lungs clear to auscultation bilaterally. No chest tenderness. Abdomen: Soft, nontender, nondistended. No abdominal bruit or pulsatile masses. No hepatosplenomegaly Extremities: No peripheral edema, no signs of gross trauma or deformity. Activefull range of motion of all extremities. Neuro: Cranial nerves II through XII intact, no focal neurological deficits. Skin: Clean dry and intact with no rash, purpura, petechiae, vesicles or pustules. Backs/flank: No CVA tenderness, no midline spinal tenderness, no deformity. Psych: Normal mood and affect. No SI, HI or acute psychosis. Const Vital Signs: 04/08/23 17:11 04/08/23 18:35 04/08/23 20:21 Temperature 97.9 F 97.9 F Temperature Source Temporal Oral Pulse Rate 89 89 80 Respiratory Rate 14 14 17 Blood Pressure 89/52 L 74/69 L 96/57 L Blood Pressure Mean 64 70 70 Pulse Ox 97 97 94 Oxygen Delivery Method Room Air Room Air Room Air Positive well nourished and well developed General Appearance ED: well developed <Dr. Fatmata Brower DO - Last Filed: 04/13/23 08:30> Physical Exam Const Vital Signs: 04/08/23 17:11 04/08/23 18:35 04/08/23 20:21 Temperature 97.9 F 97.9 F Temperature Source Temporal Oral Pulse Rate 89 89 80 Respiratory Rate 14 14 17 Blood Pressure 89/52 L 74/69 L 96/57 L Blood Pressure Mean 64 70 70 Pulse Ox 97 97 94 Oxygen Delivery Method Room Air Room Air Room Air Sepsis Attestation <Dr. Fatmata Brower DO - Last Filed: 04/13/23 08:30> Sepsis Alert: Yes Sepsis Attestation: Agree w/Sepsis Date exam was performed: 04/08/23 Time exam was performed: 22:51 Possible Source of Sepsis: Genitourinary Sepsis Organ Dysfunction Criteria Present: SBP < 90 mmHg or MAP < 65 mmHg, Creatinine > 2.0 mg/dL and Lactic Acid > 2 mmol/L Fluid Resuscitation Fluid resuscitation indicated?: Yes Fluid Resuscitation ordered: 30 ml/kg fluid bolus ordered Amount of fluid ordered: 3,000 Sepsis Note Date exam was performed: 04/08/23 Time exam was performed: 23:00 Sepsis Attestation: Sepsis re-evaluation was performed Response to fluids: Fluid responsive hypotension MDM <LISETTE Swift - Last Filed: 04/08/23 21:20> [facility] Lab Data Labs: Laboratory Results - last 24 hr 04/08/23 04/08/23 04/08/23 18:00 18:40 19:45 WBC 15.6 H RBC 3.57 L Hgb 11.3 L Hct 33.0 L MCV 92.4 MCH 31.7 MCHC 34.2 RDW Std Deviation 44.8 H RDW Coeff of Gaby 13.2 Plt Count 183 MPV 8.7 Immature Gran % (Auto) 0.900 Neut % (Auto) 96.0 H Lymph % (Auto) 2.2 L Fleming % (Auto) 0.8 Eos % (Auto) 0.0 Baso % (Auto) 0.1 Absolute Neuts (auto) 15.0 H Absolute Lymphs (auto) 0.35 L Nucleated RBC % 0 Differential Comment SCANNED Sodium 143 Potassium 3.9 Chloride 111 H Carbon Dioxide 20.0 L Anion Gap 12 BUN 44 H Creatinine 3.33 H Estim Creat Clear Calc 20.40 Est GFR (MDRD) Af Amer 24 L Est GFR (MDRD) Non-Af 19 L BUN/Creatinine Ratio 13.2 Glucose 118 H Lactic Acid 6.9 H* Calcium 9.3 Phosphorus 1.2 L Total Bilirubin 1.40 H AST 40 H ALT 35 Alkaline Phosphatase 116 Total Creatine Kinase 176 Total Protein 6.3 L Albumin 3.1 L Globulin 3.2 Albumin/Globulin Ratio 1.0 Lipase 21 Blood Type O POSITIVE Antibody Screen NEGATIVE Radiography Diagnostic Testing: Clinical Impression(s) from Imaging Studies Chest X-Ray 04/08/23 18:40 IMPRESSION: No radiographic evidence of acute cardiopulmonary disease. Electronically Signed: Melchor Oviedo MD at 18:57 EST , Chest/Abdomen/Pelvis CT 04/08/23 19:45 IMPRESSION: 1. Diffuse scattered bilateral pulmonary nodules are stable. 2. Moderate left hydronephroureter caused by multiple distal ureteral stones. The largest measures 4 mm. Electronically Signed: Melchor Oviedo MD at 20:48 EST , EKG EKG shows normal sinus rhythm: Attestation: I personally reviewed and interpreted this EKG as follows: Comments: Normal sinus rhythm, rate of 83 bpm, MO interval 172 ms, QRS duration 104 ms, no acute ST elevation, no acute infarct noted. Treatment and Re-Evaluation :: Patient appears generally well, patient appears nontoxic vital signs are stable. Presenting to the emergency department with complaints of malaise, fever and chills, cough, shortness of breath. Patient will receive a full workup. Differential diagnose includes community-acquired pneumonia, viral illness such as COVID, influenza, RSV. Patient received a two-view chest x-ray rule out any other findings. Laboratory values including a phosphorus per her request. Patient was given IV fluids, nausea medicine. Patient will be reevaluated. Allradiologic examinations were read, reviewed by the emergency department attending. From these reads, a plan of care will be put in place. Patient's blood pressure remains soft. Patient's laboratory values show a leukocytosis with a white blood count of 15.6, patient's hemoglobin is 11.3, this is low for the patient, patient baseline was 13 in November 2022. Patient'schemistries show acute kidney injury with a BUN of 44 with a creatinine of 3.33,lactic acid grossly at 6.9. Patient received 30 cc/kg IV bolus. Total bilirubin was 1.4 lipase negative. Patient started IV Zosyn. Patient did receive a CT scan chest abdomen pelvis that shows diffuse scattered bilateral pulmonary nodules are stable. Moderate left hydroureter caused by multiple distal ureteral stones. The largest measures 4 mm. Again patient started on IV Zosyn. We did speak to Dr. Lane, patient will be admitted here to the hospital. I will speak to the hospitalist. At this time, patient is currently being treated with sepsis, infected obstructing uropathy. Acute kidney injury. Patient stable for admission <Dr. Fatmata Brower, DO - Last Filed: 04/13/23 08:30> [facility] Narrative Medical decision making narrative: I have personally performed a face to face assessment of the patient and have reviewed the DOMINIQUE Note. I performed a substantive portion of the visit including all aspects of the following. My chino findings include: History is patient is a 72-year-old male with history of coronary artery disease, hypertension, hyperlipidemia, prostate cancer, CKD 3 and sarcoidosis ofthe lung presenting with generalized weakness and generalized malaise. Patient had a vague abdominal discomfort for the past month but had not thought much of it. When asked he did state it hurts more in his lower abdomen/suprapubic region. Infectious workup is obtained as patient has reporting fever and chills. Blood pressure is maps above 60 but is soft in the emergency room. Patient is ill-appearing. He is found to have a leukocytosis of 15.6 with left shift and mild anemia with a hemoglobin 11.3 of uncertain etiology. Does not appear to be on any blood thinners. Platelets are normal. Creatinine significantly elevated at3.33 which is above his baseline of 1.4-1.5. His lactate is also significantly elevated at 6.9. Flu, COVID and strep are negative. Patient given total of 3 Lof fluid in the emergency room. CT of the chest abdomen pelvis is added on as there is no obvious source of infection on chest x-ray. Patient still not provided and able to provide a urine sample. CT of the kidneys that showed moderate left hydro nephro ureter caused by multiple distal ureteral stones the largest measuring 4 mm. I suspect this is a source. Is started on IV Zosyn, cultures are pending at this time. Will be admitted to the ICU given his blood pressures and significant lactic acidosis. Case is discussed admitting physician as well as urology, Dr. Lane, who plans to take the patient to the OR tomorrow for lithotripsy. Instructed to keep n.p.o. after midnight. As patient is fluid responsive does not require pressors at this time but will needclose monitoring in the ICU. Plan of care and updates provided to patient as well as family. I was notified that patient did start having rigors and spiked a temperature of 104.3 about 45 minutes an hour after receiving the antibiotics. Is given a gramof Tylenol and will be transferred to the ICU. Other additions or changes: [None] History & Record Review Discussion w/independent historian: Patient and Family Lab Data Attestation: I reviewed the patient's lab results. Labs: Laboratory Results - last 24 hr 04/08/23 04/08/23 04/08/23 18:00 18:40 19:45 WBC 15.6 H RBC 3.57 L Hgb 11.3 L Hct 33.0 L MCV 92.4 MCH 31.7 MCHC 34.2 RDW Std Deviation 44.8 H RDW Coeff of Gaby 13.2 Plt Count 183 MPV 8.7 Immature Gran % (Auto) 0.900 Neut % (Auto) 96.0 H Lymph % (Auto) 2.2 L Fleming % (Auto) 0.8 Eos % (Auto) 0.0 Baso % (Auto) 0.1 Absolute Neuts (auto) 15.0 H Absolute Lymphs (auto) 0.35 L Nucleated RBC % 0 Differential Comment SCANNED Sodium 143 Potassium 3.9 Chloride 111 H Carbon Dioxide 20.0 L Anion Gap 12 BUN 44 H Creatinine 3.33 H Estim Creat Clear Calc 20.40 Est GFR (MDRD) Af Amer 24 L Est GFR (MDRD) Non-Af 19 L BUN/Creatinine Ratio 13.2 Glucose 118 H Lactic Acid 6.9 H* Calcium 9.3 Phosphorus 1.2 L Total Bilirubin 1.40 H AST 40 H ALT 35 Alkaline Phosphatase 116 Total Creatine Kinase 176 Total Protein 6.3 L Albumin 3.1 L Globulin 3.2 Albumin/Globulin Ratio 1.0 Lipase 21 Blood Type O POSITIVE Antibody Screen NEGATIVE Radiography Chest X-Ray - ED: 1 View, Read by ED Physician, Read by Radiologist and No Acute Disease Diagnostic Testing: Clinical Impression(s) from Imaging Studies Chest X-Ray 04/08/23 18:40 IMPRESSION: No radiographic evidence of acute cardiopulmonary disease. Electronically Signed: Melchor Oviedo MD at 18:57 EST , Chest/Abdomen/Pelvis CT 04/08/23 19:45 IMPRESSION: 1. Diffuse scattered bilateral pulmonary nodules are stable. 2. Moderate left hydronephroureter caused by multiple distal ureteral stones. The largest measures 4 mm. Electronically Signed: Melchor Oviedo MD at 20:48 EST , <Jalil Farrell NP-Za - Last Filed: 04/08/23 21:20> Critical Care Time Critical Care Time: Yes Critical care time (excluding procedures): 30-74 minutes, Discussing w/Patient &/or Family/Chief Dispatcher Service, Discussing w/Consultants and Performing Direct Patient Care at Bedside <Dr. Fatmata Brower DO - Last Filed: 04/13/23 08:30> Critical Care Time Critical care time (excluding procedures): 30-74 minutes (50) Discharge Plan Dx/Rx/DC Orders Clinical Impression: Acute kidney injury, Kidney stone, Hydroureter, Sepsis, Abdominal pain, Acidosis, lactic Disposition Disposition: Acute Care Hospital [facility] Discharge Date/Time: 04/08/23 22:55 What to do if you have Problems For any increased pain, shortness of breath, bleeding, nausea or vomiting, chest pain, or any unexpected problems, contact your Primary Care Provider. Call [facility] ([phone]) or report to the closest Emergency Room. Call 911 if necessary. 04/13/23 0830 <Electronically signed by Fatmata Brower DO> Cosigner Signature (if applicable): 04/12/237 <Electronically signed by Jalil Farrell FOAM TANK LAMINATORVivekC> CC: Dr. Abel Madrigal MD ~ Signed [facility] Work Phone: 1(105) 974-954802-15-2024 Progress note Author Teo Pelaez [facility] April 12, 2023 2:43pm Note Date/Time April 12, 2023 9:56am [facility] Medical Records Department [address] [place] [address] Progress Note - Manufacturer 04/12/23 0953 MR#: [id number] Acct: [id number] Name: ANDRÉS GUEVARA Rep #:[id number] : 1950 72 From: Teo Pelaez MD PCP: Dr. Abel Madrigal MD Status: ADM IN Location: [place] [address] Assessment & Plan Assessment/Plan (1) Septic shock due to urinary tract infection: (2) Calculus of left kidney: (3) Stage III chronic kidney disease: QUALIFIERS: Chronic kidney disease stage 3 subtype: stage 3a (GFR 45-59) Qualified Code(s): N18.31 - Chronic kidney disease, stage 3a (4) Sarcoidosis of lung: PLAN: Plan RECOMMENDATIONS: 1. Challenge with Lasix 2. Monitor clinically off stress dose steroids 3. Continue ceftriaxone to complete antibiotic course 4. Increase activity as tolerated 5. Walking oximetry prior to discharge. Wean oxygen as tolerated 6. Potential discharge if able to tolerate ambulation without supplemental oxygen IMPRESSIONS: 1. Septic shock secondary to pansensitive E. coli UTI with obstructing stones Patient has had intervention overnight with ureteral stent and subsequent hypotension. This pattern is highly suggestive of a gram-negative infection andblood cultures are already positive. Patient is on ceftriaxone at this time. Monitor off stress dose steroids. Will need to discuss with urology on long-term plan and need for Gibbs on discharge. 2. Acute kidney injury on CKD stage IIIa Continues to improve. Clinical suspicion for pre and post prerenal etiology. Patient did have significant hypotension on presentation, but also had obstructing stones. Both of these are resolved at this time. Patient did receive Lasix 48 hours ago with good response. Patient will be challenged with Lasix. Potassium has been supplemented. 3. Acute hypoxic respiratory failure in the setting of sarcoidosis Patient does have a history of sarcoidosis last treated in March of last year. Patient does not appear to have a baseline oxygen requirement, but is currently on BiPAP as needed. Clinical suspicion for an element of congestive heart failure secondary to fluid resuscitation associated with problem #1. Will hold off on additional IV fluids at this time. Patient will be challenged with Lasix today. Patient will need a walking oximetry prior to discharge. 4. Advanced age/hyperlipidemia/history of prostate cancer/jaundice Complicates care, management, recovery and prognosis. Discussion with patient and daughter confirmed patient is a full CODE STATUS. Jaundice does appear to be improved. Patient does have nodules on the lung, but this may be secondary to sarcoid. This can be followed up as an outpatient. Subjective Subjective Patient did well overnight. Patient is somewhat disgruntled about still requiring supplemental oxygen. Patient was working on increasing ambulation yesterday and feels his strength is improving. Patient is not reporting any chest pain, vomiting pain, nausea or vomiting. Objective Data Objective Data Vital Signs: Vital Signs Temp Pulse Resp BP Pulse Ox O2 Del Method O2 Flow Rate 36.5 C L 65 17 112/61 94 Nasal Cannula 3 04/12/23 08:40 04/12/23 08:40 04/12/23 08:40 04/12/23 08:40 04/12/23 08:40 04/12/23 08:44 04/12/23 08:44 FiO2 30 04/11/23 06:00 Oxygen Flow Rate (L/min) 3 Oxygen Delivery Method Nasal Cannula Weight: 78.1 kg Body Mass Index (BMI) 24.7 Intake & Output: Intake and Output for Last 24 Hours 04/10/23 04/11/23 04/12/23 23:59 23:59 23:59 Intake Total 980 / 980 400 / 400 Output Total 3240 / 3240 1675 / 1675 750 / 750 Balance -2260 / -2260 -1275 / -1275 -750 / -750 Lab / Micro Data Attestation: I reviewed the patient's lab results. 04/12/23 06:50 04/12/23 06:50 Labs: Laboratory Results - last 24 hr 04/11/23 03:08: Diff Path Review Reviewed 04/12/23 06:50: WBC 38.8 H*, RBC 2.98 L, Hgb 9.4 L, Hct 26.9 L, MCV 90.3, MCH 31.5, MCHC 34.9, RDW Std Deviation 47.7 H, RDW Coeff of Gaby 14.2, Plt Count 59 L, MPV 10.8, Immature Gran % (Auto) 3.900 H, Neut % (Auto) 87.4 H, Lymph % (Auto)2.8 L, Fleming % (Auto) 5.4, Eos % (Auto) 0.1, Baso % (Auto) 0.4, Absolute Neuts (auto) 33.9 H, Absolute Lymphs (auto) 1.08, Nucleated RBC % 0.1, Diff Path Review June, Sodium 147 H, Potassium 3.1 L, Chloride 118 H, Carbon Dioxide 20.0 L, Anion Gap 9, BUN 75 H, Creatinine 2.08 H, Estim Creat Clear Calc 32.66, Est GFR (MDRD) Af Amer 40 L, Est GFR (MDRD) Non-Af 33 L, BUN/Creatinine Ratio 36.1 H, Glucose 155 H, Calcium 8.1 L, Phosphorus 1.9 L, Total Bilirubin 0.90, AST 100 H, ALT 278 H, Alkaline Phosphatase 207 H, Total Protein 5.6 L, Albumin 1.9 L, Globulin 3.7, Albumin/Globulin Ratio 0.5 L Micro: Microbiology 04/08/23 22:36 Urine, Clean Catch Urine Culture - Final Escherichia coli 04/08/23 18:58 Blood Culture (Wb) - Anticubital Left Blood Culture - Final Escherichia coli 04/08/23 18:50 Blood Culture (Wb) - Anticubital Right Blood Culture - Preliminary 04/08/23 18:40 Stool Stool Occult Blood (ALFONSO) - Final Occult Blood Positive 04/08/23 18:30 Mucosa - Nose SARS-CoV-2, Influenza & RSV (PCR) - Final Physical Exam Const alert and no apparent distress Constitutional Narrative: Off BiPAP. Jaundice resolved HEENT normocephalic and head/scalp atraumatic Eyes PERRL, EOMs intact bilaterally and conjunctivae normal Eyes Narrative: Icterus resolved Neck full ROM and no lymphadenopathy Neck Narrative: Right IJ is clean, dry and intact Chest inspection of chest normal Resp normal respiratory effort Auscultation: clear to auscultation bilaterally; Negative for rales, rhonchi or wheezes Cardio regular rate, regular rhythm, S1 normal heart sound, S2 normal heart sound, no murmurs, no rub and no gallops Rate: tachycardic GI normal to inspection, nondistended, normoactive bowel sounds Extremity no clubbing, cyanosis or edema Extremity Narrative: Resolution of pain on palpation of the calves Skin no rashes or lesions noted Neuro oriented x3, CN's II-XII intact bilaterally and moves all extremities Neuro Narrative: Responding more appropriately today Psych cooperative Mood & Affect: flat affect Charges/Coding Visit Charges Inpatient E&M: 84505 Subs Hosp L2 04/12/23 1443 <Electronically signed by Teo Pelaez MD> Cosigner Signature (if applicable): CC: ~ Signed [facility] Work Phone: 1(588) 798-580402-15-2024 Progress note Author Wesley Martinez [facility] April 12, 2023 2:19pm Note Date/Time April 12, 2023 9:18am [facility] Medical Records Department [address] [place] [address] Progress Note - Hospitalist 04/12/2314 MR#: [id number] Acct: [id number] Name: ANDRÉS GUEVARA Rep #:[id number] : 1950 72 From: Wesley Martinez DO PCP: Dr. Abel Madrigal MD Status: ADM IN Location: [place] [address] Reason for Visit Reason for Visit: Diagnoses Sepsis, unspecified organism (04/08/23) Sarcoidosis of lung (04/08/23) Hypotension, unspecified (04/08/23) Acute pyelonephritis (04/08/23) Acute kidney failure, unspecified (04/08/23) Chronic kidney disease, stage 3a (04/08/23) Calculus of kidney (04/08/23) Urinary tract infection, site not specified (04/08/23) Severe sepsis with septic shock (04/08/23) Subjective Subjective Tired today. Having some chills. Did have some hematuria last night but that is since resolved. Objective Data Objective Data Vital Signs: Vital Signs Temp Pulse Resp BP Pulse Ox O2 Del Method O2 Flow Rate 36.5 C L 65 17 112/61 94 Nasal Cannula 3 04/12/23 08:40 04/12/23 08:40 04/12/23 08:40 04/12/23 08:40 04/12/23 08:40 04/12/23 08:44 04/12/23 08:44 FiO2 30 04/11/23 06:00 Oxygen Flow Rate (L/min) 3 Oxygen Delivery Method Nasal Cannula Weight: 78.1 kg Body Mass Index (BMI) 24.7 Intake & Output: Intake and Output for Last 24 Hours 04/10/23 04/11/23 04/12/23 23:59 23:59 23:59 Intake Total 980 / 980 400 / 400 Output Total 3240 / 3240 1675 / 1675 750 / 750 Balance -2260 / -2260 -1275 / -1275 -750 / -750 Lab / Micro Data 04/12/23 06:50 04/12/23 06:50 Labs: Laboratory Results - last 24 hr 04/11/23 03:08: Diff Path Review Reviewed 04/12/23 06:50: WBC 38.8 H*, RBC 2.98 L, Hgb 9.4 L, Hct 26.9 L, MCV 90.3, MCH 31.5, MCHC 34.9, RDW Std Deviation 47.7 H, RDW Coeff of Gaby 14.2, Plt Count 59 L, MPV 10.8, Immature Gran % (Auto) 3.900 H, Neut % (Auto) 87.4 H, Lymph % (Auto)2.8 L, Fleming % (Auto) 5.4, Eos % (Auto) 0.1, Baso % (Auto) 0.4, Absolute Neuts (auto) 33.9 H, Absolute Lymphs (auto) 1.08, Nucleated RBC % 0.1, Diff Path Review June, Sodium 147 H, Potassium 3.1 L, Chloride 118 H, Carbon Dioxide 20.0 L, Anion Gap 9, BUN 75 H, Creatinine 2.08 H, Estim Creat Clear Calc 32.66, Est GFR (MDRD) Af Amer 40 L, Est GFR (MDRD) Non-Af 33 L, BUN/Creatinine Ratio 36.1 H, Glucose 155 H, Calcium 8.1 L, Phosphorus 1.9 L, Total Bilirubin 0.90, AST 100 H, ALT 278 H, Alkaline Phosphatase 207 H, Total Protein 5.6 L, Albumin 1.9 L, Globulin 3.7, Albumin/Globulin Ratio 0.5 L Micro: Microbiology 04/08/23 22:36 Urine, Clean Catch Urine Culture - Final Escherichia coli 04/08/23 18:58 Blood Culture (Wb) - Anticubital Left Blood Culture - Final Escherichia coli 04/08/23 18:50 Blood Culture (Wb) - Anticubital Right Blood Culture - Preliminary 04/08/23 18:40 Stool Stool Occult Blood (ALFONSO) - Final Occult Blood Positive 04/08/23 18:30 Mucosa - Nose SARS-CoV-2, Influenza & RSV (PCR) - Final Physical Exam Const Constitutional Narrative: Saw earlier in the morning patient was sleeping but did wake briefly. Later seen up eating breakfast no acute distress and afebrile. Resp normal respiratory effort, no retractions, no use of accessory muscles and clearto auscultation bilaterally Cardio regular rate, regular rhythm, S1 normal heart sound and S2 normal heart sound GI normal to inspection, nondistended, normoactive bowel sounds, soft to palpation,non-tender and non-distended Extremity normal to inspection and full ROM Neuro Sensorium / Orientation: awake and alert Assessment & Plan Assessment/Plan (1) Sepsis associated hypotension: (2) UTI (urinary tract infection): QUALIFIERS: Urinary tract infection type: acute pyelonephritis Qualified Code(s): N10 - Acute pyelonephritis PLAN: Plan septic shock. * 2 to pyelonephritis and bacteremia. * RIJ TLC placed 04/09 * was on norepi gtt and vasopressin, since weaned off. Was also on hydrocortisone, which has also been weaned off. * Blood and urine Cx both showing E. coli. * on CTX. Continue abx through the . acute hypoxic respiratory failure * Improving * POA with pulse of 79% on high flow oxygen * overall improved. * wean oxygen as able * pt received furosemide 40 IV on 04/10 and 04/12. Acute pyelonephritis. * 2/2 obstructing calculi * underwent cystoscopy w left stent placement and retrograde pyelogram 04/09 * UCx w E. coli. Antibiotics changed from pip-tazo to ceftriaxone Bacteremia * + E. coli, suspected source from pyelonephritis. * On ceftriaxone. KAROL * POA * admission creatinine 3.33, up to 3.61, down to 2. Baseline around 1.6 * FENA 0.54% * suspect prerenal and ischemic ATN * Nephrology following. Transaminitis * Improving * AST and ALT up to 402 and 500, respectively. * suspect due to septic shock. * monitor Leukocytosis * slightly improved today. ongoing, secondary to underlying sepsis, infection and steroids (which have been discontinued 04/11) * monitor Thrombocytopenia * ongoing * trending down during course of admission. Suspect due to underlying sepsis and DIC. * monitor * doubt TTP, HIT DIC, suspected * clinically improving. * noted coagulopathy with elevated aPTT, PT, Fibrinogen, D-dimer. Thrombocytopenia, worsening anemia. * consider idania-smear, LDH, haptoglobin if concern for hemolysis Chronic conditions: * CAD status post stents: continue aspirin, Plavix, and atorvastatin. Patient not on beta-john, reason unclear follow-up with cardiology as an outpatient.3. * hypertension: antihypertensive held given shock * Dyslipidemia: Patient on atorvastatin continued. * History of prostate cancer: Status post prostatectomy, in remission. DVT prophylaxis, high risk: SCDs 04/11: Discussed with the patient's daughters. 1 daughter was in the room and the other daughter was contacted on the phone. Explained in depth the patient'scourse and eventual plan. Also discussing with the patient about returning to work. Told him I could not say that he could return to work next week but I advised against its given the severity of his illness and the fact that he is still in the hospital should give more time before he can get back to his normalroutine. 04/12: Discussed with the patient daughters again. 1 daughter was very anxious about Tanisha including the DIC and septic shock. Reassured her that when I put those diagnoses and chest reflect what was actually going on with the patient. Overall, he is doing much better and I do anticipate him being able jimy discharged. I did caution her in regards to researching these very diagnosesthat many times the initial search options will be worst-case scenarios. Told her not to focus on those but to look more at the patient's overall improvement. Also reassured her about the hematuria likely combination of the ball of the catheter abutting his bladder compounded by his thrombocytopenia. Hematuria since resolved. We also did interdisciplinary rounds today and addressed with both daughters, the 1 who is a physician fundraising assistant over the phone. Greater than 55 minutes of which greater than 50% of time was counseling the patient and family at bedside about current status,. Medical diagnoses and emphasizing the overall improved clinical picture. Charges/Coding Visit Charges Inpatient E&M: 78498 Subs Hosp L3 04/12/23 1419 <Electronically signed by Wesley Martinez DO> Cosigner Signature (if applicable): CC: ~ Signed [facility] Work Phone: [phone]) 778-240502-15-2024 Consult note Author Rufus Lane [facility] April 12, 2023 7:42am Note Date/Time April 12, 2023 7:43am [facility] Medical Records Department [address] [place] [address] Consultation 04/12/23 0742 MR#: [id number] Acct: [id number] Name: ANDRÉS GUEVARA Rep #:[id number] : 1950 72 From: Rufus Lane MD PCP: Dr. Abel Madrigal MD Status: ADM IN Location: [place] [address] Consult Date of Consult: 04/12/23 Reason for Consult Patient is now transferred out of the ICU after septic shock from infected kidney stone status post stent placement he is doing better creatinine is improving still with a Gibbs catheter in place once his diuresis is done I thinkwe can remove the catheter by think for now keep it in until he is fully diuresis probably good. I have my office set him up for outpatient surgery to laser the stones but he will to recover fully I see in the office for preop. I will continue to follow peripherally as he gets better 04/12/23 0742 <Electronically signed by Rufus Lane MD> Cosigner Signature (if applicable): CC: Dr. Wenceslao Marquez MD; Dr. Teo Pelaez MD; Dr. Stephane Padilla DO; Dr. Gil Disla MD; Dr. Dennys Melgoza MD; Dr. Mau Acharya MD; Dr. Rufus Lane MD; Dr. Lori Gomes MD; Dr. Maynor Reaves MD; Dr. Abel Madrigal MD; Dr. Patricio Amador MD; Dr. Bubba Youngblood MD; Dr. Roger Feng MD; Dr. Oscar Calix MD; Dr. Carlos Burgos MD; Dr. Sruthi Billings MD~ Signed [facility] Work Phone: [phone]) 273-727502-14-2024 Progress note Author Teo Pelaez [facility] April 11, 2023 4:12pm Note Date/Time April 11, 2023 7:00am [facility] Medical Records Department [address] [place] [address] Progress Note - Manufacturer 04/11/23 0655 MR#: [id number] Acct: [id number] Name: ANDRÉS GUEVARA Rep #:[id number] : 1950 72 From: Teo Pelaez MD PCP: Dr. Abel Madrigal MD Status: ADM IN Location: ICU ICU03-1 Assessment & Plan Assessment/Plan (1) Septic shock due to urinary tract infection: (2) Calculus of left kidney: (3) Stage III chronic kidney disease: QUALIFIERS: Chronic kidney disease stage 3 subtype: stage 3a (GFR 45-59) Qualified Code(s): N18.31 - Chronic kidney disease, stage 3a (4) Sarcoidosis of lung: PLAN: Plan RECOMMENDATIONS: 1. Possible dose with Lasix this afternoon if poor urine output 2. Discontinue stress dose steroids 3. Continue Zosyn pending sensitivities 4. Increase activity as tolerated 5. BiPAP rescue as needed. Wean oxygen as tolerated 6. Okay to leave the intensive care unit from my perspective IMPRESSIONS: 1. Septic shock secondary to probable gram-negative UTI with obstructing stones Patient has had intervention overnight with ureteral stent and subsequent hypotension. This pattern is highly suggestive of a gram-negative infection andblood cultures are already positive. Patient is on Zosyn at this time. Will narrow antibiotic spectrum once further information is available. Patient should not receive additional fluids. Will discontinue stress dose steroids. 2. Acute kidney injury on CKD stage IIIa Slightly improved. Clinical suspicion for pre and post prerenal etiology. Patient did have significant hypotension on presentation, but also had obstructing stones. Both of these are resolved at this time. Patient did receive Lasix yesterday with good response. Clinical suspicion is patient will enter the polyuric phase of ATN today. If patient's urine output remains marginal, Lasix could be given. 3. Acute hypoxic respiratory failure in the setting of sarcoidosis Patient does have a history of sarcoidosis last treated in March of last year. Patient does not appear to have a baseline oxygen requirement, but is currently on BiPAP as needed. Clinical suspicion for an element of congestive heart failure secondary to fluid resuscitation associated with problem #1. Will hold off on additional IV fluids at this time. Patient may [place] candidate for Lasix if not having significant urine output spontaneously 4. Advanced age/hyperlipidemia/history of prostate cancer/jaundice Complicates care, management, recovery and prognosis. Discussion with patient and daughter confirmed patient is a full CODE STATUS. Jaundice does appear to be improved. Patient does have nodules on the lung, but this may be secondary to sarcoid. This can be followed up as an outpatient. Subjective Subjective Patient did well overnight. Patient responded well to Lasix yesterday afternoon. Patient is still requiring some supplemental oxygen, which is concerning to the patient. Patient is not reporting any abdominal pain, nausea or vomiting. Patient did tolerate p.o. diet yesterday. Objective Data Objective Data Vital Signs: Vital Signs Temp Pulse Resp BP Pulse Ox O2 Del Method O2 Flow Rate 36.9 C 71 17 123/78 H 96 Bi-pap 3 04/11/23 03:00 04/11/23 06:00 04/11/23 06:00 04/11/23 06:00 04/11/23 06:00 04/11/23 06:00 04/11/23 04:00 FiO2 30 04/11/23 06:00 Oxygen Flow Rate (L/min) 3 Oxygen Delivery Method Bi-pap Weight: 73.3 kg Body Mass Index (BMI) 23.1 Intake & Output: Intake and Output for Last 24 Hours 04/09/23 04/10/23 04/11/23 23:59 23:59 23:59 Intake Total 2219.26 / 2219.26 980 / 980 50 / 50 Output Total 920 / 920 3240 / 3240 500 / 500 Balance 1299.26 / 1299.26 -2260 / -2260 -450 / -450 Lab / Micro Data Attestation: I reviewed the patient's lab results. 04/11/23 03:08 04/11/23 03:08 Labs: Laboratory Results - last 24 hr 04/10/23 03:10: Diff Path Review Reviewed 04/11/23 03:08: WBC 44.3 H*, RBC 2.98 L, Hgb 9.3 L, Hct 27.7 L, MCV 93.0, MCH 31.2, MCHC 33.6, RDW Std Deviation 49.9 H, RDW Coeff of Gaby 14.6, Plt Count 65 L, MPV 10.2, Immature Gran % (Auto) 1.800 H, Neut % (Auto) 93.0 H, Lymph % (Auto)1.4 L, Fleming % (Auto) 3.8, Eos % (Auto) 0.0, Baso % (Auto) 0.0, Absolute Neuts (auto) 41.2 H, Absolute Lymphs (auto) 0.61 L, Nucleated RBC % 0, Differential Comment SCANNED, Diff Path Review June, Platelet Estimate MOD DEC, Sodium 146 H, Potassium 3.5, Chloride 115 H, Carbon Dioxide 20.0 L, BUN 73 H, Creatinine 2.78 H, Estim Creat Clear Calc 24.44, Est GFR (MDRD) Af Amer 29 L, Est GFR (MDRD) Non-Af 24 L, BUN/Creatinine Ratio 26.3 H, Glucose 119 H, Calcium 7.5 L, Phosphorus 3.0, Albumin 2.1 L Micro: Microbiology 04/08/23 18:50 Blood Culture (Wb) - Anticubital Right Blood Culture - Preliminary 04/08/23 18:58 Blood Culture (Wb) - Anticubital Left Blood Culture - Preliminary GNR lactose medicine tech 04/08/23 22:36 Urine, Clean Catch Urine Culture - Preliminary GNR lactose medicine tech 04/08/23 18:40 Stool Stool Occult Blood (ALFONSO) - Final Occult Blood Positive 04/08/23 18:30 Mucosa - Nose SARS-CoV-2, Influenza & RSV (PCR) - Final Physical Exam Const alert and no apparent distress Constitutional Narrative: Good BiPAP synchrony. Jaundice resolved HEENT normocephalic and head/scalp atraumatic Eyes PERRL, EOMs intact bilaterally and conjunctivae normal Eyes Narrative: Icterus resolved Neck full ROM and no lymphadenopathy Neck Narrative: Right IJ is clean, dry and intact Chest inspection of chest normal Resp normal respiratory effort Auscultation: clear to auscultation bilaterally; Negative for rales, rhonchi or wheezes Cardio regular rate, regular rhythm, S1 normal heart sound, S2 normal heart sound, no murmurs, no rub and no gallops GI normal to inspection, nondistended, normoactive bowel sounds Extremity no clubbing, cyanosis or edema Extremity Narrative: Resolution of pain on palpation of the calves Skin no rashes or lesions noted Neuro oriented x3, CN's II-XII intact bilaterally and moves all extremities Psych cooperative Mood & Affect: flat affect Charges/Coding Visit Charges Inpatient E&M: 91023 Subs Hosp L3 04/11/23 1612 <Electronically signed by Teo Pelaez MD> Cosigner Signature (if applicable): CC: ~ Signed [facility] Work Phone: 1(860) 601-207502-14-2024 Progress note Author Wesley Martinez [facility] April 11, 2023 3:08pm Note Date/Time April 11, 2023 7:01am [facility] Medical Records Department [address] [place] [address] Progress Note - Hospitalist 04/11/23 0654 MR#: [id number] Acct: [id number] Name: ANDRÉS GUEVARA Rep #:[id number] 25 : 1950 72 From: Wesley Martinez DO PCP: Dr. Abel Madrigal MD Status: ADM IN Location: ICU ICU03-1 Reason for Visit Reason for Visit: Diagnoses Sepsis, unspecified organism (04/08/23) Sarcoidosis of lung (04/08/23) Hypotension, unspecified (04/08/23) Acute pyelonephritis (04/08/23) Acute kidney failure, unspecified (04/08/23) Chronic kidney disease, stage 3a (04/08/23) Calculus of kidney (04/08/23) Urinary tract infection, site not specified (04/08/23) Severe sepsis with septic shock (04/08/23) Subjective Subjective Feeling better. Anxious to go back to work. Objective Data Objective Data Vital Signs: Vital Signs Temp Pulse Resp BP Pulse Ox O2 Del Method O2 Flow Rate 36.9 C 71 17 123/78 H 96 Bi-pap 3 04/11/23 03:00 04/11/23 06:00 04/11/23 06:00 04/11/23 06:00 04/11/23 06:00 04/11/23 06:00 04/11/23 04:00 FiO2 30 04/11/23 06:00 Oxygen Flow Rate (L/min) 3 Oxygen Delivery Method Bi-pap Weight: 73.3 kg Body Mass Index (BMI) 23.1 Intake & Output: Intake and Output for Last 24 Hours 04/09/23 04/10/23 04/11/23 23:59 23:59 23:59 Intake Total 2219.26 / 2219.26 980 / 980 50 / 50 Output Total 920 / 920 3240 / 3240 500 / 500 Balance 1299.26 / 1299.26 -2260 / -2260 -450 / -450 Lab / Micro Data 04/11/23 03:08 04/11/23 03:08 Labs: Laboratory Results - last 24 hr 04/10/23 03:10: Diff Path Review Reviewed 04/11/23 03:08: WBC 44.3 H*, RBC 2.98 L, Hgb 9.3 L, Hct 27.7 L, MCV 93.0, MCH 31.2, MCHC 33.6, RDW Std Deviation 49.9 H, RDW Coeff of Gaby 14.6, Plt Count 65 L, MPV 10.2, Immature Gran % (Auto) 1.800 H, Neut % (Auto) 93.0 H, Lymph % (Auto)1.4 L, Fleming % (Auto) 3.8, Eos % (Auto) 0.0, Baso % (Auto) 0.0, Absolute Neuts (auto) 41.2 H, Absolute Lymphs (auto) 0.61 L, Nucleated RBC % 0, Differential Comment SCANNED, Diff Path Review June foll, Platelet Estimate MOD DEC, Sodium 146 H, Potassium 3.5, Chloride 115 H, Carbon Dioxide 20.0 L, BUN 73 H, Creatinine 2.78 H, Estim Creat Clear Calc 24.44, Est GFR (MDRD) Af Amer 29 L, Est GFR (MDRD) Non-Af 24 L, BUN/Creatinine Ratio 26.3 H, Glucose 119 H, Calcium 7.5 L, Phosphorus 3.0, Albumin 2.1 L Micro: Microbiology 04/08/23 18:50 Blood Culture (Wb) - Anticubital Right Blood Culture - Preliminary 04/08/23 18:58 Blood Culture (Wb) - Anticubital Left Blood Culture - Preliminary GNR lactose medicine tech 02/11/24 22:36 Urine, Clean Catch Urine Culture - Preliminary GNR lactose medicine tech 04/08/23 18:40 Stool Stool Occult Blood (ALFONSO) - Final Occult Blood Positive 04/08/23 18:30 Mucosa - Nose SARS-CoV-2, Influenza & RSV (PCR) - Final Physical Exam Const alert and no apparent distress Constitutional Narrative: Up in chair. Nontoxic. Appears well overall. Patient seen earlier ambulate inthe hallway with therapy. Patient was using a walker and had a normal gait though slow. HEENT head/scalp atraumatic Eyes Eyes Narrative: Glasses. No icterus. Resp normal respiratory effort and no retractions Resp Narrative: Bibasilar crackles Cardio regular rate, regular rhythm, S1 normal heart sound and S2 normal heart sound GI normal to inspection, nondistended, normoactive bowel sounds and soft to palpation Extremity normal to inspection and full ROM Neuro Sensorium / Orientation: awake and alert Psych affect normal Assessment & Plan Assessment/Plan (1) Sepsis associated hypotension: (2) UTI (urinary tract infection): QUALIFIERS: Urinary tract infection type: acute pyelonephritis Qualified Code(s): N10 - Acute pyelonephritis PLAN: Plan septic shock. * 2/2 to pyelonephritis and bacteremia. * RIJ TLC placed 04/09 * was on norepi gtt and vasopressin, since weaned off * follow up cultures * Continue hydrocortisone. acute hypoxic respiratory failure * POA with pulse of 79% on high flow oxygen * overall improved. * wean oxygen as able * pt received furosemide 40 IV on 04/10. Acute pyelonephritis. * 2/2 obstructing calculi * underwent cystoscopy w left stent placement and retrograde pyelogram 04/09 * UCx w E. coli. Antibiotics changed from pip-tazo to ceftriaxone Bacteremia * + E. coli, suspected source from pyelonephritis. * On ceftriaxone. KAROL * POA * admission creatinine 3.33, up to 3.61, down to 2.78. Baseline around 1.6 * continue IVF * FENA 0.54% * suspect prerenal and ischemic ATN * Nephrology following. Transaminitis * developing. AST and ALT up to 402 and 500, respectively. * suspect due to septic shock. * monitor Leukocytosis * ongoing, secondary to underlying sepsis, infection and steroids (which have been discontinued 04/11) * monitor Thrombocytopenia * trending down during course of admission. Suspect due to underlying sepsis and DIC. * monitor * doubt TTP, HIT DIC, suspected * noted coagulopathy with elevated aPTT, PT, Fibrinogen, D-dimer. Thrombocytopenia, worsening anemia. * consider idania-smear, LDH, haptoglobin if concern for hemolysis Chronic conditions: * CAD status post stents: continue aspirin, Plavix, and atorvastatin. Patient not on beta-john, reason unclear follow-up with cardiology as an outpa tient.3. * hypertension: antihypertensive held given shock * Dyslipidemia: Patient on atorvastatin continued. * History of prostate cancer: Status post prostatectomy, in remission. DVT prophylaxis, high risk: SCDs . Discussed with the patient's daughters. 1 daughter was in the room and the other daughter was contacted on the phone. Explained in depth the patient's course and eventual plan. Also discussing with the patient about returning to work. Told him I could not say that he could return to work next week but I advised against its given the severity of his illness and the fact that he is still in the hospital should give more time before he can get back to his normalroutine. Greater than 50 minutes of which greater than 50% time was counseling the patient and his daughters at bedside about the issues above. Charges/Coding Visit Charges Inpatient E&M: 83735 Subs Hosp L3 04/11/23 1504 <Electronically signed by Wesley Martinez DO> Cosigner Signature (if applicable): CC: ~ Signed ADDENDUM by Dr. Wesley Martinez DO on 04/11/23 at 1508 Addendum Patient last want PCI and April 2015 to the RCA. With his coagulopathy and thrombocytopenia, will hold off on aspirin and clopidogrel for the time being. With his elevated transaminases, will hold off on atorvastatin for now. 04/11/23 1508<Electronically signed by Wesley Martinez DO> Cosigner Signature (if applicable): cc: ~* Signed [facility] Work Phone: 1(923) 323-320102-13-2024 Progress note Author Teo Pelaez [facility] April 10, 2023 2:18pm Note Date/Time April 10, 2023 7:16am [facility] Medical Records Department [facility] [place] [address] Progress Note - Manufacturer 04/10/23 0710 MR#: [id number] Acct: [id number] Name: ANDRÉS GUEVARA Rep #:[id number] 23 : 1950 72 From: Teo Pelaez MD PCP: Dr. Abel Madrigal MD Status: ADM IN Location: ICU ICU03-1 Assessment & Plan Assessment/Plan (1) Septic shock due to urinary tract infection: (2) Calculus of left kidney: (3) Stage III chronic kidney disease: QUALIFIERS: Chronic kidney disease stage 3 subtype: stage 3a (GFR 45-59) Qualified Code(s): N18.31 - Chronic kidney disease, stage 3a (4) Sarcoidosis of lung: PLAN: Plan RECOMMENDATIONS: 1. Await lower extremity Dopplers. Diuretics versus continued anticoagulation 2. Wean stress dose steroids 3. Continue Zosyn pending sensitivities 4. Okay to advance diet 5. BiPAP rescue as needed 6. Wean oxygen as tolerated IMPRESSIONS: 1. Septic shock secondary to probable gram-negative UTI with obstructing stones Patient has had intervention overnight with ureteral stent and subsequent hypotension. This pattern is highly suggestive of a gram-negative infection andblood cultures are already positive. Patient is on Zosyn at this time. Will narrow antibiotic spectrum once further information is available. Patient should not receive additional fluids. Patient would benefit from free water p.o. Stress dose steroids will be weaned. 2. Acute kidney injury on CKD stage IIIa Slightly improved. Clinical suspicion for pre and post prerenal etiology. Patient did have significant hypotension on presentation, but also had obstructing stones. Both of these are being addressed at this time. Patient does have urine output, so we will continue to monitor. No indication for renalreplacement therapy at this time. Nephrology following. Possible Lasix later today 3. Acute hypoxic respiratory failure in the setting of sarcoidosis Patient does have a history of sarcoidosis last treated in March of last year. Patient does not appear to have a baseline oxygen requirement, but is currently on BiPAP. Clinical suspicion for an element of congestive heart failure secondary to fluid resuscitation associated with problem #1. Will hold off on additional IV fluids at this time. Patient may be a candidate for Lasix if no DVT is found. 4. Advanced age/hyperlipidemia/history of prostate cancer/jaundice Complicates care, management, recovery and prognosis. Discussion with patient and daughter confirmed patient is a full CODE STATUS. Jaundice does appear to be improved. Patient does have nodules on the lung, but this may be secondary to sarcoid. This can be followed up as an outpatient. Subjective Subjective Patient did okay overnight. Patient did attempt to avoid BiPAP for most of the evening requiring 8 L to maintain saturations. Patient did have an episode of significant pain in the medial calf bilaterally. Given concern for DVT, one-time dose of Lovenox was ordered. Patient has remained hemodynamically stable and was able to be taken off of all pressors by 4 PM yesterday. Objective Data Objective Data Both blood cultures have come back positive in less than 24 hours with gram- negative rods. Species and sensitivities are still pending. Vital Signs: Vital Signs Temp Pulse Resp BP Pulse Ox O2 Del Method O2 Flow Rate 37.0 C 77 23 H 101/64 93 High Flow 8 04/10/23 04:00 04/10/23 07:00 04/10/23 07:00 04/10/23 07:00 04/10/23 07:00 04/10/23 07:00 04/10/23 07:00 FiO2 30 04/10/23 01:00 Oxygen Flow Rate (L/min) 8 Oxygen Delivery Method High Flow Weight: 75.1 kg Body Mass Index (BMI) 23.7 Intake & Output: Intake and Output for Last 24 Hours 04/08/23 04/09/23 04/10/23 23:59 23:59 23:59 Intake Total 3050 / 3050 2219.26 / 2219.26 390 / 390 Output Total 920 / 920 490 / 490 Balance 3050 / 2925 1299.26 / 1299.26 -100 / -100 Lab / Micro Data Attestation: I reviewed the patient's lab results. 04/10/23 03:10 04/10/23 03:10 Labs: Laboratory Results - last 24 hr 04/09/23 03:50: Diff Path Review Reviewed 04/09/23 07:37: PT 19.7 H, INR 1.7, APTT 39.3 H, Fibrinogen 512 H 04/09/23 08:30: Ur Random Sodium 48, Urine Creatinine 221.00 04/10/23 03:10: WBC 30.2 H*, RBC 3.04 L, Hgb 9.7 L, Hct 28.5 L, MCV 93.8, MCH 31.9, MCHC 34.0 D, RDW Std Deviation 49.6 H, RDW Coeff of Gaby 14.6, Plt Count 82 L, MPV 9.9, Neut % (Auto) Not Reportable, Absolute Neuts (auto) 22.3 H, Absolute Lymphs (auto) 0.60 L, Total Counted 100, Neutrophils % (Manual) 59, Band Neutrophils % 15 H, Lymphocytes % (Manual) 2 L, Monocytes % (Manual) 17 H, Metamyelocytes % 3 H, Myelocytes % 3 H, Promyelocytes % 1 H, Differential Comment SCANNED, Diff Path Review May foll, Smudge Cells RARE, Platelet EstimateSLT DEC, D-Dimer Quant (PE/DVT) > 20.00 H*, Sodium 147 H, Potassium 4.6, Chloride 120 H, Carbon Dioxide 17.0 L, Anion Gap 10, BUN 59 H, Creatinine 3.38 H, Estim Creat Clear Calc 20.10, Est GFR (MDRD) Af Amer 23 L, Est GFR (MDRD) Non-Af 19 L, BUN/Creatinine Ratio 17.5, Glucose 153 H, Calcium 7.1 L, Total Bilirubin 1.30 H, AST 402 H, ALT 500 H, Alkaline Phosphatase 71, Total Protein 5.4 L, Albumin 2.1 L, Globulin 3.3, Albumin/Globulin Ratio 0.6 L Micro: Microbiology 04/08/23 18:50 Blood Culture (Wb) - Anticubital Right Blood Culture - Preliminary 04/08/23 18:58 Blood Culture (Wb) - Anticubital Left Blood Culture - Preliminary 04/08/23 18:40 Stool Stool Occult Blood (ALFONSO) - Final Occult Blood Positive 04/08/23 18:30 Mucosa - Nose SARS-CoV-2, Influenza & RSV (PCR) - Final Radiography Diagnostic Testing: Radiology Impression Chest X-Ray 04/09/23 06:30 IMPRESSION: The tip of the right-sided internal jugular venous catheter is at the junction of the superior vena cava and right atrium. Mild degree of bibasilar atelectasis slightly worse on the left side. Electronically Signed: Aiden Giordano MD at 8:31 EST , Physical Exam Const alert and no apparent distress Constitutional Narrative: Good BiPAP synchrony. Jaundice improved. HEENT normocephalic and head/scalp atraumatic Eyes PERRL, EOMs intact bilaterally and conjunctivae normal Eyes Narrative: Icterus noted Neck full ROM and no lymphadenopathy Neck Narrative: Right IJ is clean, dry and intact Chest inspection of chest normal Resp normal respiratory effort Auscultation: clear to auscultation bilaterally; Negative for rales, rhonchi or wheezes Cardio regular rate, S1 normal heart sound, S2 normal heart sound, no murmurs, no rub and no gallops GI normal to inspection, nondistended, normoactive bowel sounds Extremity no clubbing, cyanosis or edema Extremity Narrative: Tenderness to palpation on the medial gastrocnemius head. Increased tenderness with dorsiflexion. No palpable cords. Skin no rashes or lesions noted Neuro CN's II-XII intact bilaterally and moves all extremities Neuro Narrative: Responding more appropriately today Psych cooperative Mood & Affect: flat affect Charges/Coding Visit Charges Inpatient E&M: 80602 Subs Hosp L3 04/10/23 1418 <Electronically signed by Teo Pelaez MD> Cosigner Signature (if applicable): CC: ~ Signed [facility] Work Phone: 1(351) 428-714602-13-2024 Progress note Author Wesley Martinez [facility] April 10, 2023 12:09pm Note Date/Time April 10, 2023 7:05am [facility] Medical Records Department [address] [place] [address] Progress Note - Hospitalist 04/10/23 0700 MR#: [id number] Acct: [id number] Name: ANDRÉS GUEVARA Rep #:[id number] 20 : 1950 72 From: Wesley Martinez DO PCP: Dr. Abel Madrigal MD Status: ADM IN Location: ICU ICU03-1 Reason for Visit Reason for Visit: Diagnoses Sepsis, unspecified organism (04/08/23) Sarcoidosis of lung (04/08/23) Hypotension, unspecified (04/08/23) Acute pyelonephritis (04/08/23) Acute kidney failure, unspecified (04/08/23) Chronic kidney disease, stage 3a (04/08/23) Calculus of kidney (04/08/23) Urinary tract infection, site not specified (04/08/23) Severe sepsis with septic shock (04/08/23) Subjective Subjective Feeling better. Strength improving with utilizing IS. Objective Data Objective Data Vital Signs: Vital Signs Temp Pulse Resp BP Pulse Ox O2 Del Method O2 Flow Rate 37.0 C 85 28 H 107/62 91 High Flow 8 04/10/23 04:00 04/10/23 06:00 04/10/23 06:00 04/10/23 06:00 04/10/23 06:00 04/10/23 06:00 04/10/23 06:00 FiO2 30 04/10/23 01:00 Oxygen Flow Rate (L/min) 8 Oxygen Delivery Method High Flow Weight: 75.1 kg Body Mass Index (BMI) 23.7 Intake & Output: Intake and Output for Last 24 Hours 04/08/23 04/09/23 04/10/23 23:59 23:59 23:59 Intake Total 3050 / 3050 2219.26 / 2219.26 390 / 390 Output Total 920 / 920 490 / 490 Balance 3050 / 2925 1299.26 / 1299.26 -100 / -100 Lab / Micro Data 04/10/23 03:10 04/10/23 03:10 Labs: Laboratory Results - last 24 hr 04/09/23 03:50: Diff Path Review Reviewed, Sodium 145, Potassium 4.1, Chloride 116 H, Carbon Dioxide 16.0 L, Anion Gap 13, BUN 46 H, Creatinine 3.61 H, Estim Creat Clear Calc 18.82, Est GFR (MDRD) Af Amer 21 L, Est GFR (MDRD) Non-Af 18 L,BUN/Creatinine Ratio 12.7, Glucose 140 H, Calcium 7.5 L, Total Bilirubin 0.60, AST 40 H, ALT 28, Alkaline Phosphatase 129 H, Total Protein 5.1 L, Albumin 2.3 L, Globulin 2.8, Albumin/Globulin Ratio 0.8 L 04/09/23 07:37: PT 19.7 H, INR 1.7, APTT 39.3 H, Fibrinogen 512 H 04/09/23 08:30: Ur Random Sodium 48, Urine Creatinine 221.00 04/10/23 03:10: WBC 30.2 H*, RBC 3.04 L, Hgb 9.7 L, Hct 28.5 L, MCV 93.8, MCH 31.9, MCHC 34.0 D, RDW Std Deviation 49.6 H, RDW Coeff of Gaby 14.6, Plt Count 82 L, MPV 9.9, Neut % (Auto) Not Reportable, Absolute Neuts (auto) 22.3 H, Absolute Lymphs (auto) 0.60 L, Total Counted 100, Neutrophils % (Manual) 59, Band Neutrophils % 15 H, Lymphocytes % (Manual) 2 L, Monocytes % (Manual) 17 H, Metamyelocytes % 3 H, Myelocytes % 3 H, Promyelocytes % 1 H, Differential Comment SCANNED, Diff Path Review May foll, Smudge Cells RARE, Platelet EstimateSLT DEC, D-Dimer Quant (PE/DVT) > 20.00 H*, Sodium 147 H, Potassium 4.6, Chloride 120 H, Carbon Dioxide 17.0 L, Anion Gap 10, BUN 59 H, Creatinine 3.38 H, Estim Creat Clear Calc 20.10, Est GFR (MDRD) Af Amer 23 L, Est GFR (MDRD) Non-Af19 L, BUN/Creatinine Ratio 17.5, Glucose 153 H, Calcium 7.1 L, Total Bilirubin 1.30 H, AST 402 H, ALT 500 H, Alkaline Phosphatase 71, Total Protein 5.4 L, Albumin 2.1 L, Globulin 3.3, Albumin/Globulin Ratio 0.6 L Micro: Microbiology 04/08/23 18:50 Blood Culture (Wb) - Anticubital Right Blood Culture - Preliminary 04/08/23 18:58 Blood Culture (Wb) - Anticubital Left Blood Culture - Preliminary 04/08/23 18:40 Stool Stool Occult Blood (ALFONSO) - Final Occult Blood Positive 04/08/23 18:30 Mucosa - Nose SARS-CoV-2, Influenza & RSV (PCR) - Final Radiography Diagnostic Testing: Radiology Impression Chest X-Ray 04/09/23 06:30 IMPRESSION: The tip of the right-sided internal jugular venous catheter is at the junction of the superior vena cava and right atrium. Mild degree of bibasilar atelectasis slightly worse on the left side. Electronically Signed: Aiden Giordano MD at 8:31 EST , Physical Exam Const alert and no apparent distress Constitutional Narrative: up in bed. afebrile. Resp normal respiratory effort and no retractions Resp Narrative: bibasilar crackles Cardio regular rate, regular rhythm, S1 normal heart sound and S2 normal heart sound GI normal to inspection, nondistended, normoactive bowel sounds and soft to palpation Neuro Sensorium / Orientation: awake and alert Psych affect normal Assessment & Plan Assessment/Plan (1) Sepsis associated hypotension: (2) UTI (urinary tract infection): QUALIFIERS: Urinary tract infection type: acute pyelonephritis Qualified Code(s): N10 - Acute pyelonephritis PLAN: Plan septic shock. * 2/2 to pyelonephritis * RIJ TLC placed 04/09 * was on norepi gtt and vasopressin, since weaned off * follow up cultures * Continue hydrocortisone. pyelonephritis. * 2/2 obstructing calculi * underwent cystoscopy w left stent placement and retrograde pyelogram 04/09 * abx w pip/tazo KAROL * POA * admission creatinine 3.33, up to 3.61, down to 3.38. Baseline around 1.6 * continue IVF * FENA 0.54% * suspect prerenal and ischemic ATN * Nephrology following. Transaminitis * developing. AST and ALT up to 402 and 500, respectively. * suspect due to septic shock. * monitor Leukocytosis * dramatic jump today. Likely 2/2 steroids that were started 04/09 * monitor Thrombocytopenia * trending down during course of admission. Suspect due to underlying sepsis and DIC. * monitor * doubt TTP, HIT DIC, suspected * noted coagulopathy with elevated aPTT, PT, Fibrinogen, D-dimer. Thrombocytopenia, worsening anemia. * consider idania-smear, LDH, haptoglobin if concern for hemolysis Chronic conditions: * CAD status post stents: continue aspirin, Plavix, and atorvastatin. Patient not on beta-john, reason unclear follow-up with cardiology as an outpatient.3. * hypertension: antihypertensive held given shock * Dyslipidemia: Patient on atorvastatin continued. * History of prostate cancer: Status post prostatectomy, in remission. DVT prophylaxis, high risk: SCDs DW pt's dtr at bedside. Charges/Coding Visit Charges Inpatient E&M: 80574 Subs Hosp L2 04/10/23 1209 <Electronically signed by Wesley Martinez DO> Cosigner Signature (if applicable): CC: ~ Signed [facility] Work Phone: [phone]) 198-874302-13-2024 Consult note Author Rufus Lane [facility] April 10, 2023 7:26am Note Date/Time April 10, 2023 7:26am [facility] Medical Records Department [address] [place] [address] Consultation 04/10/23 07 MR#: [id number] Acct: [id number] Name: ANDRÉS GUEVARA Rep #:[id number] 32 : 1950 72 From: Rufus Lane MD PCP: Dr. Abel Madrigal MD Status: ADM IN Location: ICU ICU03-1 Consult Date of Consult: 04/10/23 Reason for Consult 72-year-old male who came in with septic shock with a kidney stone underwent emergency stent placement the other day, he still in critical condition but at least more stable in the ICU he is on BiPAP and high flow oxygen he received a significant amount of fluid for resuscitation for septic shock and now has compromised pulmonary function because of this but hopefully with Lasix etc. andICU care he will improve his blood pressure is much better white blood count still fairly high. No plan to do any intervention for his stones until he is completely resolved from his sepsis and shock. Will follow peripherally 04/10/23 07 <Electronically signed by Rufus Lane MD> Cosigner Signature (if applicable): CC: Dr. Wenceslao Marquez MD; Dr. Teo Pelaez MD; Dr. Stephane Padilla DO; Dr. Gil Disla MD; Dr. Dennys Melgoza MD; Dr. Mau Acharya MD; Dr. Rufus Lane MD; Dr. Lori Gomes MD; Dr. Maynor Reaves MD; Dr. Abel Madrigal MD; Dr. Patricio Amador MD; Dr. Bubba Youngblood MD; Dr. Roger Feng MD; Dr. Oscar Calix MD; Dr. Carlos Burgos MD; Dr. Sruthi Billings MD~ Signed [facility] Work Phone: [phone]) 339-984902-12-2024 Progress note Author Wesley Martinez [facility] April 09, 2023 4:53pm Note Date/Time April 09, 2023 7:08am [facility] Medical Records Department [address] [place] [address] Progress Note - Hospitalist 04/09/23703 MR#: [id number] Acct: [id number] Name: ANDRÉS GUEVARA Rep #:[id number] : 1950 72 From: Wesley Martinez DO PCP: Dr. Abel Madrigal MD Status: ADM IN Location: ICU ICU03-1 Reason for Visit Reason for Visit: Diagnoses Sepsis, unspecified organism (04/08/23) Hypotension, unspecified (04/08/23) Acute pyelonephritis (04/08/23) Subjective Subjective Feeling better overall. Objective Data Objective Data Vital Signs: Vital Signs Temp Pulse Resp BP Pulse Ox O2 Del Method O2 Flow Rate 36.6 C 79 21 H 71/55 L 94 High Flow 15 04/09/23 04:00 04/09/23 05:30 04/09/23 05:30 04/09/23 04:45 04/09/23 05:30 04/09/23 04:50 04/09/23 04:50 FiO2 30 04/09/23 05:30 Oxygen Flow Rate (L/min) 15 Oxygen Delivery Method High Flow Weight: 74.6 kg Body Mass Index (BMI) 23.6 Intake & Output: Intake and Output for Last 24 Hours 04/07/23 04/08/23 04/09/23 23:59 23:59 23:59 Intake Total 3050 / 3050 1271.10 / 1271.10 Output Total 125 / 125 Balance 3050 / 2925 1146.10 / 1146.10 Lab / Micro Data 04/09/23 03:50 04/09/23 03:50 Labs: Laboratory Results - last 24 hr 04/08/23 18:00: WBC 15.6 H, RBC 3.57 L, Hgb 11.3 L, Hct 33.0 L, MCV 92.4, MCH 31.7, MCHC 34.2, RDW Std Deviation 44.8 H, RDW Coeff of Gaby 13.2, Plt Count 183,MPV 8.7, Immature Gran % (Auto) 0.900, Neut % (Auto) 96.0 H, Lymph % (Auto) 2.2 L, Fleming % (Auto) 0.8, Eos % (Auto) 0.0, Baso % (Auto) 0.1, Absolute Neuts (auto)15.0 H, Absolute Lymphs (auto) 0.35 L, Nucleated RBC % 0, Differential Comment SCANNED, Sodium 143, Potassium 3.9, Chloride 111 H, Carbon Dioxide 20.0 L, AnionGap 12, BUN 44 H, Creatinine 3.33 H, Estim Creat Clear Calc 20.40, Est GFR (MDRD) Af Amer 24 L, Est GFR (MDRD) Non-Af 19 L, BUN/Creatinine Ratio 13.2, Glucose 118 H, Calcium 9.3, Phosphorus 1.2 L, Total Bilirubin 1.40 H, AST 40 H, ALT 35, Alkaline Phosphatase 116, Total Creatine Kinase 176, Total Protein 6.3 L, Albumin 3.1 L, Globulin 3.2, Albumin/Globulin Ratio 1.0, Lipase 21 04/08/23 18:40: Lactic Acid 6.9 H* 04/08/23 19:45: Blood Type O POSITIVE, Antibody Screen NEGATIVE 04/08/23 21:46: PT 16.8 H, INR 1.4, APTT 34.5 04/08/23 22:36: Urine Color Yellow, Urine Clarity Clear, Urine pH 5.0, Ur Specific [place] 1.015, Urine Protein 30 H, Urine Glucose (UA) Normal, Urine Ketones Negative, Urine Occult Blood 50 H, Urine Nitrite Positive H, Urine Bilirubin Negative, Urine Urobilinogen Normal, Ur Leukocyte Esterase 100 H, Urine RBC 10-25 SEEN, Urine WBC 50-100 SEEN, Ur Squamous Epith Cells 0 SEEN, Urine Bacteria 3+, Urine Mucus 0 SEEN 04/08/23 23:18: Lactic Acid 8.9 H* 04/09/23 03:50: WBC 10.5, RBC 3.22 L, Hgb 10.0 L, Hct 31.7 L, MCV 98.4 H D, MCH 31.1, MCHC 31.5 L D, RDW Std Deviation 51.1 H, RDW Coeff of Gaby 14.0, Plt Count 119 L, MPV 9.4, Immature Gran % (Auto) 1.700 H, Neut % (Auto) 92.3 H, Lymph % (Auto) 3.6 L, Fleming % (Auto) 2.0, Eos % (Auto) 0.1, Baso % (Auto) 0.3, Absolute Neuts (auto) 9.7 H, Absolute Lymphs (auto) 0.38 L, Nucleated RBC % 0 Micro: Microbiology 04/08/23 18:40 Stool Stool Occult Blood (ALFONSO) - Final Occult Blood Positive 04/08/23 18:30 Mucosa - Nose SARS-CoV-2, Influenza & RSV (PCR) - Final Radiography Diagnostic Testing: Radiology Impression Chest X-Ray 04/08/23 18:40 IMPRESSION: No radiographic evidence of acute cardiopulmonary disease. Electronically Signed: Melchor Oviedo MD at 18:57 EST , Chest/Abdomen/Pelvis CT 04/08/23 19:45 IMPRESSION: 1. Diffuse scattered bilateral pulmonary nodules are stable. 2. Moderate left hydronephroureter caused by multiple distal ureteral stones. The largest measures 4 mm. Electronically Signed: Melchor Oviedo MD at 20:48 EST , Physical Exam Const alert and no apparent distress HEENT head/scalp atraumatic Neck Neck Narrative: Right IJ triple-lumen catheter in place Resp normal respiratory effort and no retractions Resp Narrative: Bibasilar crackles Cardio regular rate, regular rhythm, S1 normal heart sound and S2 normal heart sound GI normal to inspection, nondistended, normoactive bowel sounds, soft to palpation and non-tender Extremity normal to inspection Assessment & Plan Assessment/Plan (1) Sepsis associated hypotension: (2) UTI (urinary tract infection): QUALIFIERS: Urinary tract infection type: acute pyelonephritis Qualified Code(s): N10 - Acute pyelonephritis PLAN: Plan septic shock. * 2/2 to pyelonephritis * RIJ TLC placed 04/09 * on norepi gtt and vasopressin * follow up cultures * Patient has since been placed on stress dose hydrocortisone. pyelonephritis. * 2/2 obstructing calculi * underwent cystoscopy w left stent placement and retrograde pyelogram 04/09 * abx w pip/tazo KAROL * POA * admission creatinine 3.33, up to 3.61. Baseline around 1.6 * continue IVF * Mai 0.54% * suspect prerenal and ischemic ATN * Nephrology following. Chronic conditions: * CAD status post stents: continue aspirin, Plavix, and atorvastatin. Patient not on beta-john, reason unclear follow-up with cardiology as an outpatient.3. Acute kidney injury on stage III chronic kidney disease: Baseline creatinine has been around 1.6-1.75 last year. Admitted with BUNs/c reatinine 44/3.33. Hold losartan. Patient follows ticket broker Dr. Acharya and will consult him. * hypertension: antihypertensive held given shock * Dyslipidemia: Patient on atorvastatin continued. * History of prostate cancer: Status post prostatectomy, in remission. DVT prophylaxis, high risk: Heparin 500 subcutaneous twice daily. Bilateral SCDs. Discontinue if platelet count drops less than 50,000 or hemoglobin less than 8 g% Discussed with the patient's daughters at bedside. Charges/Coding Visit Charges Inpatient E&M: 50027 Subs Hosp L2 04/09/23 1656 <Electronically signed by Wesley Martinez DO> Cosigner Signature (if applicable): CC: ~ Signed [facility] Work Phone: 1(830) 314-638102-12-2024 Consult note Author Teo Pelaez [facility] April 09, 2023 1:54pm Note Date/Time April 09, 2023 7:28am [facility] Medical Records Department [address] [place] [address] Consultation - Manufacturer 04/09/23 0727 MR#: [id number] Acct: [id number] Name: ANDRÉS GUEVARA Rep #:[id number] : 1950 72 From: Teo Pelaez MD PCP: Dr. Abel Madrigal MD Status: ADM IN Location: ICU ICU03-1 Assessment & Plan Assessment/Plan (1) Septic shock due to urinary tract infection: (2) Calculus of left kidney: (3) Stage III chronic kidney disease: QUALIFIERS: Chronic kidney disease stage 3 subtype: stage 3a (GFR 45-59) Qualified Code(s): N18.31 - Chronic kidney disease, stage 3a (4) Sarcoidosis of lung: PLAN: Plan RECOMMENDATIONS: 1. No further fluid administration 2. Titrate pressors as necessary. Stress dose steroids if second pressor required 3. Continue Zosyn pending cultures 4. Add coags and fibrinogen to morning labs 5. BiPAP breaks as tolerated 6. Wean oxygen as tolerated IMPRESSIONS: 1. Septic shock secondary to probable gram-negative UTI with obstructing stones Patient has had intervention overnight with ureteral stent and subsequent hypotension. This pattern is highly suggestive of a gram-negative infection. Patient is on Zosyn at this time. Will narrow antibiotic spectrum once further information is available. Patient should not receive additional fluids. Pressors can be titrated as necessary. If patient requires a second pressor, stress dose steroids will be added. 2. Acute kidney injury on CKD stage IIIa Clinical suspicion for pre and post prerenal etiology. Patient did have significant hypotension on presentation, but also had obstructing stones. Both of these are being addressed at this time. Patient does have urine output, so we will continue to monitor. No indication for renal replacement therapy at this time. 3. Acute hypoxic respiratory failure in the setting of sarcoidosis Patient does have a history of sarcoidosis last treated in March of last year. Patient does not appear to have a baseline oxygen requirement, but is currently on BiPAP. Clinical suspicion for an element of congestive heart failure secondary to fluid resuscitation associated with problem #1. Will hold off on additional IV fluids at this time. Patient will not be given Lasix givenongoing hypotension. 4. Advanced age/hyperlipidemia/history of prostate cancer/jaundice Complicates care, management, recovery and prognosis. Discussion with patient and daughter confirmed patient is a full CODE STATUS. Patient does havesignificant jaundice at this time, so there is some concern for development of DIC with increased bilirubin. Will check CMP in the morning. Patient does havenodules on the lung, but this may be secondary to sarcoid. This can be followedup as an outpatient. TIME: 40 minutes of additional critical care time spent addressing patient's septicshock, acute kidney injury, respiratory failure, review of all data and collaboration with care team HPI Consult Data Date of Consult: 04/09/23 HPI Narrative Reason for Consultation: Septic shock HPI Narrative: ANDRÉS GUEVARA is a 72 M, with past medical history listed below, who presents to [facility] on 04/08/2023 secondary to fever. Patient does have ahistory of kidney stones in the past and had reported 3 days of generalized malaise, 2 days of fevers and chills with associated nausea, vomiting and dyspnea. The 24 hours previous, patient developed significant weakness to the point he could not get out of bed. Patient was accompanied by his daughter who thought that he was not acting right and appeared more orange. In the emergency department, patient was initially afebrile, but hypotensive at 89/52 and saturating well on room air. Laboratory workup showed a white blood cell count of 15.6, hemoglobin of 11.3 and platelets of 183. Chemistry showed abicarbonate of 20, BUN of 44 and a creatinine of 3.33. Patient did have an elevated lactate at 6.9 and liver enzymes showed an elevated bilirubin at 1.4. Chest x-ray was unremarkable, but his CT of the chest abdomen pelvis showed diffuse scattered pulmonary nodules along with a moderate left hydronephrosis with multiple distal stones. The patient was given IV fluids at 30 cc/kg given hypotension along with IV Zosyn. Patient was admitted to the intensive care unit, but persistent and hypotension. Patient was ultimately taken down for stent placement and continued to have hypotension. Patient received a total of 7 L of IV fluids with continued hypotension, so a central line was placed by thehospitalist overnight. Patient is currently on Levophed. Since being in the intensive care unit, patient has been initiated on pressors. Patient feels subjectively slightly improved to presentation. Patient's daughter believes that he is mentating slightly more appropriately. Patient does have jaundice, but daughter states that that is common for him. Patient does not have any history of liver disease that he is aware of. Patient does have a history of sarcoidosis and believes he was placed on steroids by Dr. Sanders in March of last year. Patient is not reporting any antibiotics or steroids since that time. Patient has had renal stones previously, but has never developed sepsis because of them. Patient does have a history of prostatecancer, but does not believe this is currently active. The patient is not able to provide much additional information, but per the daughter, review of systems otherwise negative from a constitutional, HEENT, respiratory, cardiovascular, GI, genitourinary, musculoskeletal, skin, neurologic, psychiatric and hematologic system unless stated above. [facility] Medical History (Updated 04/09/23 @ 07:[address] Teo Pelaez MD) Atherosclerosis of coronary artery of [place] heart without angina pectoris Calculus of left kidney Essential (primary) hypertension GERD (gastroesophageal reflux disease) History of back problems History of non-ST elevation myocardial infarction (NSTEMI) (05/22/15) Hyperlipidemia Myocardial infarct Neuralgia of groin Nonrheumatic mitral (valve) insufficiency Prostate cancer Right inguinal hernia 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 Home Medications aspirin 81 mg chewable tablet 81 mg PO DAILY@0800 09/18/18 [History Last Taken Unknown] famotidine 20 mg tablet (Acid In[place]ole Maker (famotidine)) 20 mg PO QHS gerd 04/11/19 [History Last Taken Unknown] ascorbate calcium (vitamin C) 500 mg tablet 500 mg PO DAILY 07/01/19 [History Last Taken Unknown] multivitamin-ferrous fumarate-folic acid 18 mg-400 mcg tablet (Centrum Complete)1 tab PO QHS 07/01/19 [History Last Taken Unknown] ergocalciferol (vitamin D2) 1,250 mcg (50,000 unit) capsule (Vitamin D2) 1,250 mcg PO Q2W 10/07/19 [History Last Taken Unknown] losartan 100 mg tablet 100 mg PO DAILY htn #90 tabs 04/25/22 [Rx Last Taken Unknown] atorvastatin 40 mg tablet 40 mg PO .qod #45 tabs 08/17/22 [Rx Last Taken Unknown] clopidogrel 75 mg tablet 75 mg PO DAILY #90 tabs 08/30/22 [Rx Last Taken Unknown] amlodipine 2.5 mg tablet 2.5 mg PO BID #180 tabs 09/15/22 [Rx Last Taken Unknown] Allergy/AdvReac Type Severity Reaction Status Date / Time No Known Allergies Allergy Verified 04/08/23 17:12 Family History Father Hypertension Surgical History H/O shoulder surgery History of cataract surgery History of colonoscopy (2011) History of coronary artery stent placement (05/22/15) History of extraction of renal calculus History of inguinal herniorrhaphy (07/09/19) History of prostatectomy Social History Smoking Status: Never smoker alcohol intake: never substance use type: does not use caffeine: Yes Type: carbonated beverages Number of servings: 1 what type of physical activity do you participate in: walking and bicycling frequency: daily duration: 60-90 minutes/day seatbelt use: always do you feel safe at home: Yes ROS ROS Narrative See HPI Physical Exam Const alert and no apparent distress Constitutional Narrative: Good BiPAP synchrony. Jaundice noted. HEENT normocephalic and head/scalp atraumatic Eyes PERRL, EOMs intact bilaterally and conjunctivae normal Eyes Narrative: Icterus noted Neck full ROM and no lymphadenopathy Neck Narrative: Right IJ is clean, dry and intact Chest inspection of chest normal Resp normal respiratory effort Auscultation: clear to auscultation bilaterally; Negative for rales, rhonchi or wheezes Cardio S1 normal heart sound, S2 normal heart sound, no murmurs, no rub and no gallops Rate: tachycardic GI normal to inspection, nondistended, normoactive bowel sounds Extremity no clubbing, cyanosis or edema Skin no rashes or lesions noted Neuro CN's II-XII intact bilaterally and moves all extremities Neuro Narrative: Slightly slow to respond to questioning Psych cooperative Mood & Affect: flat affect Medical Records Data Attestation: I reviewed the patient's medical records Lab / Micro Data Attestation: I reviewed the patient's lab results. 04/09/23 03:50 04/09/23 03:50 Labs: Laboratory Results - last 24 hr 04/08/23 18:00: WBC 15.6 H, RBC 3.57 L, Hgb 11.3 L, Hct 33.0 L, MCV 92.4, MCH 31.7, MCHC 34.2, RDW Std Deviation 44.8 H, RDW Coeff of Gaby 13.2, Plt Count 183,MPV 8.7, Immature Gran % (Auto) 0.900, Neut % (Auto) 96.0 H, Lymph % (Auto) 2.2 L, Fleming % (Auto) 0.8, Eos % (Auto) 0.0, Baso % (Auto) 0.1, Absolute Neuts (auto)15.0 H, Absolute Lymphs (auto) 0.35 L, Nucleated RBC % 0, Differential Comment SCANNED, Sodium 143, Potassium 3.9, Chloride 111 H, Carbon Dioxide 20.0 L, AnionGap 12, BUN 44 H, Creatinine 3.33 H, Estim Creat Clear Calc 20.40, Est GFR (MDRD) Af Amer 24 L, Est GFR (MDRD) Non-Af 19 L, BUN/Creatinine Ratio 13.2, Glucose 118 H, Calcium 9.3, Phosphorus 1.2 L, Total Bilirubin 1.40 H, AST 40 H, ALT 35, Alkaline Phosphatase 116, Total Creatine Kinase 176, Total Protein 6.3 L, Albumin 3.1 L, Globulin 3.2, Albumin/Globulin Ratio 1.0, Lipase 21 04/08/23 18:40: Lactic Acid 6.9 H* 04/08/23 19:45: Blood Type O POSITIVE, Antibody Screen NEGATIVE 04/08/23 21:46: PT 16.8 H, INR 1.4, APTT 34.5 04/08/23 22:36: Urine Color Yellow, Urine Clarity Clear, Urine pH 5.0, Ur Specific [place] 1.015, Urine Protein 30 H, Urine Glucose (UA) Normal, Urine Ketones Negative, Urine Occult Blood 50 H, Urine Nitrite Positive H, Urine Bilirubin Negative, Urine Urobilinogen Normal, Ur Leukocyte Esterase 100 H, Urine RBC 10-25 SEEN, Urine WBC 50-100 SEEN, Ur Squamous Epith Cells 0 SEEN, Urine Bacteria 3+, Urine Mucus 0 SEEN 04/08/23 23:18: Lactic Acid 8.9 H* 04/09/23 03:50: WBC 10.5, RBC 3.22 L, Hgb 10.0 L, Hct 31.7 L, MCV 98.4 H D, MCH 31.1, MCHC 31.5 L D, RDW Std Deviation 51.1 H, RDW Coeff of Gaby 14.0, Plt Count 119 L, MPV 9.4, Immature Gran % (Auto) 1.700 H, Neut % (Auto) 92.3 H, Lymph % (Auto) 3.6 L, Fleming % (Auto) 2.0, Eos % (Auto) 0.1, Baso % (Auto) 0.3, Absolute Neuts (auto) 9.7 H, Absolute Lymphs (auto) 0.38 L, Nucleated RBC % 0, Sodium 145, Potassium 4.1, Chloride 116 H, Carbon Dioxide 16.0 L, Anion Gap 13, BUN 46 H, Creatinine 3.61 H, Estim Creat Clear Calc 18.82, Est GFR (MDRD) Af Amer 21 L,Est GFR (MDRD) Non-Af 18 L, BUN/Creatinine Ratio 12.7, Glucose 140 H, Calcium 7.5 L, Total Bilirubin 0.60, AST 40 H, ALT 28, Alkaline Phosphatase 129 H, TotalProtein 5.1 L, Albumin 2.3 L, Globulin 2.8, Albumin/Globulin Ratio 0.8 L Micro: Microbiology 04/08/23 18:40 Stool Stool Occult Blood (ALFONSO) - Final Occult Blood Positive 04/08/23 18:30 Mucosa - Nose SARS-CoV-2, Influenza & RSV (PCR) - Final Imaging Radiology Impression Chest X-Ray 04/08/23 18:40 IMPRESSION: No radiographic evidence of acute cardiopulmonary disease. Electronically Signed: Melchor Oviedo MD at 18:57 EST , Chest/Abdomen/Pelvis CT 04/08/23 19:45 IMPRESSION: 1. Diffuse scattered bilateral pulmonary nodules are stable. 2. Moderate left hydronephroureter caused by multiple distal ureteral stones. The largest measures 4 mm. Electronically Signed: Melchor Oviedo MD at 20:48 EST , Chest x-ray following central line shows no evidence of pneumothorax and appropriate positioning Charges/Coding Procedures Hospitalists Procedures: 29549 Critical Care Addl 30 Min 04/09/23 1354 <Electronically signed by Teo Pelaez MD> Cosigner Signature (if applicable): CC: Dr. Wenceslao Marquez MD; Dr. Teo Pelaez MD; Dr. Stephane Padilla DO; Dr. Gil Disla MD; Dr. Dennys Melgoza MD; Dr. Mau Acharya MD; Dr. Rufus Lane MD; Dr. Lori Gomes MD; Dr. Maynor Reaves MD; Dr. Abel Madrigal MD; Dr. Patricio Amador MD; Dr. Bubba Youngblood MD; Dr. Roger Feng MD; Dr. Oscar Calix MD; Dr. Carlos Burgos MD; Dr. Sruthi Billings MD~ Signed [facility] Work Phone: [phone]) 282-373502-12-2024 Consult note Author Mau Acharya [facility] April 09, 2023 10:28am Note Date/Time April 09, 2023 10:28am [facility] Medical Records Department [address] [place] [id number] Consultation - Nephrology 04/09/23 1026 MR#: [id number] Acct: [id number] Name: ANDRÉS GUEVARA Rep #:[id number] : 1950 72 From: Mau champagne MD PCP: Dr. Abel Madrigal MD Status: ADM IN Location: ICU ICU03-1 Assessment & Plan Assessment/Plan (1) Stage III chronic kidney disease: QUALIFIERS: Chronic kidney disease stage 3 subtype: stage 3a (GFR 45-59) Qualified Code(s): N18.31 - Chronic kidney disease, stage 3a (2) KAROL (acute kidney injury): PLAN: CKD stage IIIa, baseline creatinine around 1.5. Came in with severe septic shock. Likely ATN in the setting of sepsis. CT abdomen with left-sided hydronephrosis, he is s/p stenting. Clinically somewhat better. Continue aggressive medical therapy. Lactic acidosis. S/p IV fluid resuscitation. Pressors as needed Will hold off on renal replacement therapy for now. If no urine output in the next 1 to 2 days, may need temporary renal replacement therapy HPI Consult Data Date of Consult: 04/09/23 HPI Narrative Reason for Consultation: Acute renal failure HPI Narrative: ANDRÉS GUEVARA, is a 72 M who presents to the hospital with fever, altered mental status. Nephrology on consultation in view of acute on chronic renal failure. He has known history of CKD stage IIIa, he is well-known to me from office. Baseline creatinine is around 1.5. Presented with what seems like pyelonephritis, hydronephrosis, bacteremia, septic shock. Overnight had severe septic shock with lactate as high as 9. Was aggressively resuscitated. He is s/p ureteral stenting. Clinically somewhat better. Still on 2 pressors but breathing looks comfortable. Blood pressure is slightly better than this morning. Not much urine output. Gibbs catheter indwelling. Review of systems negative except above. [facility] Medical History (Updated 04/09/23 @ 10:[address] Mau Acharya MD) Atherosclerosis of coronary artery of [place] heart without angina pectoris Calculus of left kidney Essential (primary) hypertension GERD (gastroesophageal reflux disease) History of back problems History of non-ST elevation myocardial infarction (NSTEMI) (05/22/15) Hyperlipidemia Myocardial infarct Neuralgia of groin Nonrheumatic mitral (valve) insufficiency Prostate cancer Right inguinal hernia 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 Home Medications aspirin 81 mg chewable tablet 81 mg PO DAILY@0800 09/18/18 [History Last Taken Unknown] famotidine 20 mg tablet (Acid [place] Maker (famotidine)) 20 mg PO QHS gerd 04/11/19 [History Last Taken Unknown] ascorbate calcium (vitamin C) 500 mg tablet 500 mg PO DAILY 07/01/19 [History Last Taken Unknown] multivitamin-ferrous fumarate-folic acid 18 mg-400 mcg tablet (Centrum Complete)1 tab PO QHS 07/01/19 [History Last Taken Unknown] ergocalciferol (vitamin D2) 1,250 mcg (50,000 unit) capsule (Vitamin D2) 1,250 mcg PO Q2W 10/07/19 [History Last Taken Unknown] losartan 100 mg tablet 100 mg PO DAILY htn #90 tabs 04/25/22 [Rx Last Taken Unknown] atorvastatin 40 mg tablet 40 mg PO .qod #45 tabs 08/17/22 [Rx Last Taken Unknown] clopidogrel 75 mg tablet 75 mg PO DAILY #90 tabs 08/30/22 [Rx Last Taken Unknown] amlodipine 2.5 mg tablet 2.5 mg PO BID #180 tabs 09/15/22 [Rx Last Taken Unknown] Allergy/AdvReac Type Severity Reaction Status Date / Time No Known Allergies Allergy Verified 04/08/23 17:12 Family History Father Hypertension Surgical History H/O shoulder surgery History of cataract surgery History of colonoscopy (2011) History of coronary artery stent placement (05/22/15) History of extraction of renal calculus History of inguinal herniorrhaphy (07/09/19) History of prostatectomy Social History Smoking Status: Never smoker alcohol intake: never substance use type: does not use caffeine: Yes Type: carbonated beverages Number of servings: 1 what type of physical activity do you participate in: walking and bicycling frequency: daily duration: 60-90 minutes/day seatbelt use: always do you feel safe at home: Yes Physical Exam Narrative Alert awake oriented x 3 no obvious distress no pallor no icterus no JVD s1s2 no murmurs lungs clear abdomen soft no organomegaly no edema no cyanosis gibbs + Lab / Micro Data 04/09/23 03:50 04/09/23 03:50 Labs: Laboratory Results - last 24 hr 04/08/23 18:00: WBC 15.6 H, RBC 3.57 L, Hgb 11.3 L, Hct 33.0 L, MCV 92.4, MCH 31.7, MCHC 34.2, RDW Std Deviation 44.8 H, RDW Coeff of Gaby 13.2, Plt Count 183,MPV 8.7, Immature Gran % (Auto) 0.900, Neut % (Auto) 96.0 H, Lymph % (Auto) 2.2 L, Fleming % (Auto) 0.8, Eos % (Auto) 0.0, Baso % (Auto) 0.1, Absolute Neuts (auto)15.0 H, Absolute Lymphs (auto) 0.35 L, Nucleated RBC % 0, Differential Comment SCANNED, Sodium 143, Potassium 3.9, Chloride 111 H, Carbon Dioxide 20.0 L, AnionGap 12, BUN 44 H, Creatinine 3.33 H, Estim Creat Clear Calc 20.40, Est GFR (MDRD) Af Amer 24 L, Est GFR (MDRD) Non-Af 19 L, BUN/Creatinine Ratio 13.2, Glucose 118 H, Calcium 9.3, Phosphorus 1.2 L, Total Bilirubin 1.40 H, AST 40 H, ALT 35, Alkaline Phosphatase 116, Total Creatine Kinase 176, Total Protein 6.3 L, Albumin 3.1 L, Globulin 3.2, Albumin/Globulin Ratio 1.0, Lipase 21 04/08/23 18:40: Lactic Acid 6.9 H* 04/08/23 19:45: Blood Type O POSITIVE, Antibody Screen NEGATIVE 04/08/23 21:46: PT 16.8 H, INR 1.4, APTT 34.5 04/08/23 22:36: Urine Color Yellow, Urine Clarity Clear, Urine pH 5.0, Ur Specific [place] 1.015, Urine Protein 30 H, Urine Glucose (UA) Normal, Urine Ketones Negative, Urine Occult Blood 50 H, Urine Nitrite Positive H, Urine Bilirubin Negative, Urine Urobilinogen Normal, Ur Leukocyte Esterase 100 H, Urine RBC 10-25 SEEN, Urine WBC 50-100 SEEN, Ur Squamous Epith Cells 0 SEEN, Urine Bacteria 3+, Urine Mucus 0 SEEN 04/08/23 23:18: Lactic Acid 8.9 H* 04/09/23 03:50: WBC 10.5, RBC 3.22 L, Hgb 10.0 L, Hct 31.7 L, MCV 98.4 H D, MCH 31.1, MCHC 31.5 L D, RDW Std Deviation 51.1 H, RDW Coeff of Gaby 14.0, Plt Count 119 L, MPV 9.4, Immature Gran % (Auto) 1.700 H, Neut % (Auto) 92.3 H, Lymph % (Auto) 3.6 L, Fleming % (Auto) 2.0, Eos % (Auto) 0.1, Baso % (Auto) 0.3, Absolute Neuts (auto) 9.7 H, Absolute Lymphs (auto) 0.38 L, Nucleated RBC % 0, Diff Path Review June, Sodium 145, Potassium 4.1, Chloride 116 H, Carbon Dioxide 16.0 L, Anion Gap 13, BUN 46 H, Creatinine 3.61 H, Estim Creat Clear Calc 18.82, Est GFR (MDRD) Af Amer 21 L, Est GFR (MDRD) Non-Af 18 L, BUN/Creatinine Ratio 12.7, Glucose 140 H, Calcium 7.5 L, Total Bilirubin 0.60, AST 40 H, ALT 28, Alkaline Phosphatase 129 H, Total Protein 5.1 L, Albumin 2.3 L, Globulin 2.8, Albumin/Globulin Ratio 0.8 L 04/09/23 07:37: PT 19.7 H, INR 1.7, APTT 39.3 H, Fibrinogen 512 H 04/09/23 08:30: Ur Random Sodium 48, Urine Creatinine 221.00 Micro: Microbiology 04/08/23 18:50 Blood Culture (Wb) - Anticubital Right Blood Culture - Preliminary 04/08/23 18:58 Blood Culture (Wb) - Anticubital Left Blood Culture - Preliminary 04/08/23 18:40 Stool Stool Occult Blood (ALFONSO) - Final Occult Blood Positive 04/08/23 18:30 Mucosa - Nose SARS-CoV-2, Influenza & RSV (PCR) - Final Imaging Radiology Impression Chest X-Ray 04/08/23 18:40 IMPRESSION: No radiographic evidence of acute cardiopulmonary disease. Electronically Signed: Melchor Oviedo MD at 18:57 EST , Chest/Abdomen/Pelvis CT 04/08/23 19:45 IMPRESSION: 1. Diffuse scattered bilateral pulmonary nodules are stable. 2. Moderate left hydronephroureter caused by multiple distal ureteral stones. The largest measures 4 mm. Electronically Signed: Melchor Oviedo MD at 20:48 EST , Chest X-Ray 04/09/23 06:30 IMPRESSION: The tip of the right-sided internal jugular venous catheter is at the junction of the superior vena cava and right atrium. Mild degree of bibasilar atelectasis slightly worse on the left side. Electronically Signed: Aiden Giordano MD at 8:31 EST , 04/09/23 1028 <Electronically signed by Mau Acharya MD> Cosigner Signature (if applicable): CC: Dr. Wenceslao Marquez MD; Dr. Teo Pelaez MD; Dr. Stephane Padilla DO; Dr. Gil Disla MD; Dr. Dennys Melgoza MD; Dr. Mau Acharya MD; Dr. Rufus Lane MD; Dr. Lori Gomes MD; Dr. Maynor Reaves MD; Dr. Abel Madrigal MD; Dr. Patricio Amador MD; Dr. Bubba Youngblood MD; Dr. Roger Feng MD; Dr. Oscar Calix MD; Dr. Carlos Burgos MD; Dr. Sruthi Billings MD~ Signed [facility] Work Phone: 1(464) 123-300602-12-2024 Procedure [facility] 04-09-2023 History and physical note Author Bubba Youngblood [facility] April 09, 2023 3:22am Note Date/Time April 08, 2023 9:35pm [facility] Medical Records Department [address] [place] [id number] H&P Exam - Hospitalist 04/08/231 MR#: [id number] Acct: [id number] Name: ANDRÉS GUEVARA Rep #:[id number] 22 : 1950 72 From: Bubba Kern PCP: Dr. Abel Madrigal MD Status: ADM IN Location: ICU ICU03-1 HPI - General General Date of Admission: 04/08/23 Date of Service: 04/08/23 Chief Complaint: Left lower quadrant abdominal pain for about 6 to 7 days. High- grade fever, 102.4 Fahrenheit, vomiting. HPI Narrative ANDRÉS GUEVARA, is a 72 M with history of kidney stone in the past came to ED for high-grade fever at home 101.8 Fahrenheit, 102.4 Fahrenheit, vomiting total 3 times followed by dry heaving along with left pain as intermittent abdominal pain for 6 days. He described LLQ abdominal pain as intermittent, not periodic,colicky, sometimes as high 8-9/10 intensity progressed over last 2 to 3 days. Patient also has history of prostate cancer with history of prostatectomy. His urologist is Dr. Lane. In ED, vitals shows fever 104.3 Fahrenheit, tachypnea, tachycardia, low blood pressure 74/69, 89/52. Patient had chest abdomen pelvis CT which shows moderateleft hydronephroureter caused by multiple distal ureteric stones largest 4 mm. ED physician discussed with urologist and plan for cystoscopy and stent tomorrowmorning. Patient is started on IV ceftriaxone and sepsis protocol. [facility] Medical History Atherosclerosis of coronary artery of [place] heart without angina pectoris Calculus of left kidney Essential (primary) hypertension GERD (gastroesophageal reflux disease) History of back problems History of non-ST elevation myocardial infarction (NSTEMI) (05/22/15) Hyperlipidemia Myocardial infarct Neuralgia of groin Nonrheumatic mitral (valve) insufficiency Prostate cancer Right inguinal hernia 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 Home Medications aspirin 81 mg chewable tablet 81 mg PO DAILY@0800 09/18/18 [History Last Taken Unknown] famotidine 20 mg tablet (Acid Innersole Maker (famotidine)) 20 mg PO QHS gerd 04/11/19 [History Last Taken Unknown] ascorbate calcium (vitamin C) 500 mg tablet 500 mg PO DAILY 07/01/19 [History Last Taken Unknown] multivitamin-ferrous fumarate-folic acid 18 mg-400 mcg tablet (Centrum Complete)1 tab PO QHS 07/01/19 [History Last Taken Unknown] ergocalciferol (vitamin D2) 1,250 mcg (50,000 unit) capsule (Vitamin D2) 1,250 mcg PO Q2W 10/07/19 [History Last Taken Unknown] losartan 100 mg tablet 100 mg PO DAILY htn #90 tabs 04/25/22 [Rx Last Taken Unknown] atorvastatin 40 mg tablet 40 mg PO .qod #45 tabs 08/17/22 [Rx Last Taken Unknown] clopidogrel 75 mg tablet 75 mg PO DAILY #90 tabs 08/30/22 [Rx Last Taken Unknown] amlodipine 2.5 mg tablet 2.5 mg PO BID #180 tabs 09/15/22 [Rx Last Taken Unknown] Allergy/AdvReac Type Severity Reaction Status Date / Time No Known Allergies Allergy Verified 04/08/23 17:12 Family History Father Hypertension Surgical History H/O shoulder surgery History of cataract surgery History of colonoscopy (2011) History of coronary artery stent placement (05/22/15) History of extraction of renal calculus History of inguinal herniorrhaphy (07/09/19) History of prostatectomy Social History Smoking Status: Never smoker alcohol intake: never substance use type: does not use caffeine: Yes Type: carbonated beverages Number of servings: 1 what type of physical activity do you participate in: walking and bicycling frequency: daily duration: 60-90 minutes/day seatbelt use: always do you feel safe at home: Yes ROS ROS Narrative Constitutional: Fever, shivering, cold. Generalized shortness of breath. HEENT: Reports systems reviewed and no addt'l complaints, except as documented Respiratory/Chest: History of sarcoidosis. Shortness of breath/dyspnea at rest. CVS: No chest pain or pressure. Gastrointestinal: Vomiting with dry heaving. No GI bleed. Genitourinary: Denies burning urination. Has chronic incontinence status post prostatectomy. Abdominal pain as described in HPI Musculoskeletal: Denies acute joint pain or limited range of motion. No acute injury Neurologic: Denies seizure-like symptoms. skin: No ulcer. No rash Endocrinology: Reports systems reviewed and no addt'l complaints, except as documented Hematologic/Lymphatic: Reports systems reviewed and no addt'l complaints, exceptas documented Rest 14 ROS are negative except as mentioned in HPI Vital Signs Vital Signs Vital Signs: 04/08/23 17:11 04/08/23 18:35 04/08/23 20:21 Temperature 97.9 F 97.9 F Temperature Source Temporal Oral Pulse Rate 89 89 80 Respiratory Rate 14 14 17 Blood Pressure 89/52 L 74/69 L 96/57 L Blood Pressure Mean 64 70 70 Pulse Ox 97 97 94 Oxygen Delivery Method Room Air Room Air Room Air Weight Weight: 161 lb 9 oz Body Mass Index (BMI) 23.1 Results Lab / Micro Data 04/08/23 18:00 04/08/23 18:00 Labs: Laboratory Results - last 24 hr 04/08/23 18:00: WBC 15.6 H, RBC 3.57 L, Hgb 11.3 L, Hct 33.0 L, MCV 92.4, MCH 31.7, MCHC 34.2, RDW Std Deviation 44.8 H, RDW Coeff of Gaby 13.2, Plt Count 183,MPV 8.7, Immature Gran % (Auto) 0.900, Neut % (Auto) 96.0 H, Lymph % (Auto) 2.2 L, Fleming % (Auto) 0.8, Eos % (Auto) 0.0, Baso % (Auto) 0.1, Absolute Neuts (auto)15.0 H, Absolute Lymphs (auto) 0.35 L, Nucleated RBC % 0, Differential Comment SCANNED, Sodium 143, Potassium 3.9, Chloride 111 H, Carbon Dioxide 20.0 L, AnionGap 12, BUN 44 H, Creatinine 3.33 H, Estim Creat Clear Calc 20.40, Est GFR (MDRD) Af Amer 24 L, Est GFR (MDRD) Non-Af 19 L, BUN/Creatinine Ratio 13.2, Glucose 118 H, Calcium 9.3, Phosphorus 1.2 L, Total Bilirubin 1.40 H, AST 40 H, ALT 35, Alkaline Phosphatase 116, Total Protein 6.3 L, Albumin 3.1 L, Globulin 3.2, Albumin/Globulin Ratio 1.0, Lipase 21 04/08/23 18:40: Lactic Acid 6.9 H* 04/08/23 19:45: Blood Type O POSITIVE, Antibody Screen NEGATIVE Micro: Microbiology 04/08/23 18:40 Stool Stool Occult Blood (ALFONSO) - Final Occult Blood Positive 04/08/23 18:30 Mucosa - Nose SARS-CoV-2, Influenza & RSV (PCR) - Final Imaging Radiology Impression Chest X-Ray 04/08/23 18:40 IMPRESSION: No radiographic evidence of acute cardiopulmonary disease. Electronically Signed: Melchor Oviedo MD at 18:57 EST , Chest/Abdomen/Pelvis CT 04/08/23 19:45 IMPRESSION: 1. Diffuse scattered bilateral pulmonary nodules are stable. 2. Moderate left hydronephroureter caused by multiple distal ureteral stones. The largest measures 4 mm. Electronically Signed: Melchor Oviedo MD at 20:48 EST , Assessment & Plan Assessment/Plan (1) Sepsis associated hypotension: (2) UTI (urinary tract infection): QUALIFIERS: Urinary tract infection type: acute pyelonephritis Qualified Code(s): N10 - Acute pyelonephritis PLAN: Plan This 72-year-old gentleman came to ED with clinical features suggestive of sepsis secondary to UTI 1. Sepsis due to UTI most likely left pyelonephritis from obstructive multiple left ureteral calculi largest 4 mm: Patient is being admitted in ICU. The patient presented with sepsis with clinical indicators of high-grade fever, tachycardia, tachypnea, leukocytosis with neutrophil 96% due to left-sided pyelonephritis with acute sepsis-related organ dysfunction as evidenced by hypotension noted x 2, responsive to fluid, lactic acidosis and KAROL on CKD. Sepsis protocol followed with IV fluid, antibiotics and reevaluation. CT abdomen pelvis reviewed. Also reported bilateral chronic appearing perinephric inflammatory stranding but Steinstrasse for [place] of stone fragments blocking left ureter suggestive of pyelonephritis, started on IV Zosyn. The patient evaluated by urologist and plan for cystoscopy tomorrow AM. Intensivistconsulted for further management. 2 CAD status post stents: continue aspirin, Plavix, and atorvastatin. Patient not on beta-john, reason unclear follow-up with cardiology as an outpatient. 3. Acute kidney injury on stage III chronic kidney disease: Baseline creatininehas been around 1.6-1.75 last year. Admitted with BUNs/creatinine 44/3.33. Hold losartan. Patient follows ticket broker Dr. Acharya and will consult him. 4 hypertension: Currently patient has hypotension responding to IV fluid therefore hold Norvasc and losartan. Norvasc low-dose 2.5 twice daily can be started from tomorrow if patient's blood pressure is high. 5. Dyslipidemia: Patient on atorvastatin continued. 6. History of prostate cancer: Status post prostatectomy, in remission. #7 DVT prophylaxis, high risk: Stool for occult blood positive although patient does not have active GI bleed. H&H 11.3/33% suggestive of chronic anemia. Platelet count 1 83,000. Heparin 500 subcutaneous twice daily. Bilateral SCDs. Discontinue if platelet count drops less than 50,000 or hemoglobin less than 8 g% Living will/advanced directive/end of life care: Patient does have living will or advanced directive. Her daughter who is patient fundraising assistant by profession is also his healthcare POA. After discussion of benefits/risks procedures involvedwith full code, DNR CC arrest and DNR CC, the patient and her daughter opted for full code. Patient does want artificial life support including intubation, tube feed, ventilator and/chest compression, central venous catheter, vasopressor and DC shock if needed Total time spent in [id number] encounter in discussion of advanced directive 17 minutes. Microbiology Past 72 Hours 04/08/23 18:40 Stool Stool Occult Blood (ALFONSO) - Final Occult Blood Positive 04/08/23 18:30 Mucosa - Nose SARS-CoV-2, Influenza & RSV (PCR) - Final Laboratory Results 04/08/23 18:00: WBC 15.6 H, RBC 3.57 L, Hgb 11.3 L, Hct 33.0 L, MCV 92.4, MCH 31.7, MCHC 34.2, RDW Std Deviation 44.8 H, RDW Coeff of Gaby 13.2, Plt Count 183,MPV 8.7, Immature Gran % (Auto) 0.900, Neut % (Auto) 96.0 H, Lymph % (Auto) 2.2 L, Fleming % (Auto) 0.8, Eos % (Auto) 0.0, Baso % (Auto) 0.1, Absolute Neuts (auto)15.0 H, Absolute Lymphs (auto) 0.35 L, Nucleated RBC % 0, Differential Comment SCANNED, Sodium 143, Potassium 3.9, Chloride 111 H, Carbon Dioxide 20.0 L, Anion Gap 12, BUN 44 H, Creatinine 3.33 H, Estim Creat Clear Calc 20.40, Est GFR (MDRD) Af Amer 24 L, Est GFR (MDRD) Non-Af 19 L, BUN/Creatinine Ratio 13.2, Glucose 118 H,Calcium 9.3, Phosphorus 1.2 L, Total Bilirubin 1.40 H, AST 40 H, ALT 35, Alkaline Phosphatase 116, Total Creatine Kinase 176, Total Protein 6.3 L, Albumin 3.1 L, Globulin 3.2, Albumin/Globulin Ratio 1.0, Lipase 21 04/08/23 18:40: Lactic Acid 6.9 H* 04/08/23 19:45: Blood Type O POSITIVE, Antibody Screen NEGATIVE 04/08/23 21:46: PT 16.8 H, INR 1.4, APTT 34.5 04/08/23 22:36: Urine Color Yellow, Urine Clarity Clear, Urine pH 5.0, Ur Specific [place] 1.015, Urine Protein 30 H, Urine Glucose (UA) Normal, Urine Ketones Negative, Urine Occult Blood 50 H, Urine Nitrite Positive H, Urine Bilirubin Negative, Urine Urobilinogen Normal, Ur Leukocyte Esterase 100 H, Urine RBC Pending, Urine WBC Pending, Ur Squamous Epith Cells Pending, Urine Bacteria Pending, Urine Mucus Pending 04/08/23 23:18: Lactic Acid Pending Clinical Impression(s) from Imaging Studies Chest X-Ray 04/08/23 18:40 IMPRESSION: No radiographic evidence of acute cardiopulmonary disease. Chest/Abdomen/Pelvis CT 04/08/23 19:45 IMPRESSION: 1. Diffuse scattered bilateral pulmonary nodules are stable. 2. Moderate left hydronephroureter caused by multiple distal ureteral stones. The largest measures 4 mm. Charges/Coding Visit Charges Inpatient E&M: 52321 Init Hosp L3 Procedures Hospitalists Procedures: 37868 Advncd Care Plan 30 Min 04/08/23 3584 <Electronically signed by Bubba Youngblood MD> Cosigner Signature (if applicable): CC: Dr. Abel Madrigal MD; Dr. Bubba Youngblood MD~ Signed ADDENDUM by Dr. Bbuba Youngblood MD on 04/09/23 at 0322 Addendum Sepsis reevaluation was performed around 145 and patient blood pressure was elevated. After returning from surgery patient is hypotensive had already 4 L of IV fluid. Patient started on vasopressor therefore patient diagnosis is upgraded to septic shock. 04/09/23 032<Electronically signed by Bubba Youngblood MD> Cosigner Signature (if applicable): cc: Dr. Abel Madrigal MD; Dr. Bubba Youngblood MD ~* Signed [facility] Work Phone: 1(667) 829-200502-12-2024 Progress note Author Bubba Youngblood [facility] April 09, 2023 3:21am Note Date/Time April 09, 2023 3:21am [facility] Medical Records Department [address] [place] [address] Progress Note - Hospitalist 04/09/235 MR#: [id number] Acct: [id number] Name: ANDRÉS GUEVARA Rep #:[id number] : 1950 72 From: Bubba Kern PCP: Dr. Abel Madrigal MD Status: ADM IN Location: ICU ICU03-1 Hospitalist Note Patient already had 4 L of IV fluid. Initially blood pressure was responsive toIV fluid and it was elevated 130/80, 150/94 and 170/69. Patient pulse ox was initially 93% on room air and then 80% room air required 5 to 6 L of oxygen. Patient was emergently taken to the surgery for sepsis associated hypotension. Patient had cystoscopy and left stent placement and retrograde pyelogram. On return from surgery patient is hypotensive very probably associated from anesthetic medications. BP 83/54, temperature 99.5 and pulse ox 15 L/min. Started on low-dose of Levophed. Discussed with the nursing staff Sepsis Attestation Sepsis Alert: Yes Sepsis Attestation: Agree w/Sepsis Date exam was performed: 04/08/23 Time exam was performed: 09:15 Possible Source of Sepsis: Genitourinary Sepsis Organ Dysfunction Criteria Present: SBP < 90 mmHg or MAP < 65 mmHg, AcuteRespiratory Failure (New need for BiPAP/CPAP or MV), Creatinine > 2.0 mg/dL and Lactic Acid > 2 mmol/L Fluid Resuscitation Fluid resuscitation indicated?: Yes Fluid Resuscitation ordered: 30 ml/kg fluid bolus ordered Amount of fluid ordered: 3,000 Sepsis Note Date exam was performed: 04/08/23 Time exam was performed: 11:45 Sepsis Attestation: Sepsis re-evaluation was performed Response to fluids: Non Fluid responsive hypotension and Vasopressors started 04/09/23 0321 <Electronically signed by Bubba Youngblood MD> Cosigner Signature (if applicable): CC: ~ Signed [facility] Work Phone: 1(235) 767-454102-12-2024 Consult note Author Patricio Amador [facility] April 09, 2023 2:02am Note Date/Time April 09, 2023 1:50am [facility] Medical Records Department [address] [place] [address] Consultation - Manufacturer 04/09/23 0132 MR#: [id number] Acct: [id number] Name: ANDRÉS GUEVARA Rep #:[id number] : 1950 72 From: Patricio Amador MD PCP: Dr. Abel Madrigal MD Status: ADM IN Location: ICU ICU03-1 HPI Consult Data Date of Consult: 04/09/23 HPI Narrative Reason for Consultation: Septic shock, Hydronephroureter HPI Narrative: ANDRÉS GUEVARA, is a 72 M who presents for Dehydration and vomiting. Patient has been complaining of suprapubic pain on and off for 6 weeks that was radiating tohis back on the left side. Pain is 8-9/10 intensity. Patient has been vomiting since last 24 hrs about 2 - 3 times and felt dizzy therefore came into ER for further evaluation. Patient also complains of fever, chills associated with above symptoms. In ER patient was found to be hypotensive and received about 4L NS and patient was started on Ceftriaxone and then switched to zosyn. Patient has not required any pressers for now. [facility] Medical History Atherosclerosis of coronary artery of [place] heart without angina pectoris Calculus of left kidney Essential (primary) hypertension GERD (gastroesophageal reflux disease) History of back problems History of non-ST elevation myocardial infarction (NSTEMI) (05/22/15) Hyperlipidemia Myocardial infarct Neuralgia of groin Nonrheumatic mitral (valve) insufficiency Prostate cancer Right inguinal hernia 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 Home Medications aspirin 81 mg chewable tablet 81 mg PO DAILY@0800 09/18/18 [History Last Taken Unknown] famotidine 20 mg tablet (Acid Innersole Maker (famotidine)) 20 mg PO QHS gerd 04/11/19 [History Last Taken Unknown] ascorbate calcium (vitamin C) 500 mg tablet 500 mg PO DAILY 07/01/19 [History Last Taken Unknown] multivitamin-ferrous fumarate-folic acid 18 mg-400 mcg tablet (Centrum Complete)1 tab PO QHS 07/01/19 [History Last Taken Unknown] ergocalciferol (vitamin D2) 1,250 mcg (50,000 unit) capsule (Vitamin D2) 1,250 mcg PO Q2W 10/07/19 [History Last Taken Unknown] losartan 100 mg tablet 100 mg PO DAILY htn #90 tabs 04/25/22 [Rx Last Taken Unknown] atorvastatin 40 mg tablet 40 mg PO .qod #45 tabs 08/17/22 [Rx Last Taken Unknown] clopidogrel 75 mg tablet 75 mg PO DAILY #90 tabs 08/30/22 [Rx Last Taken Unknown] amlodipine 2.5 mg tablet 2.5 mg PO BID #180 tabs 09/15/22 [Rx Last Taken Unknown] Allergy/AdvReac Type Severity Reaction Status Date / Time No Known Allergies Allergy Verified 04/08/23 17:12 Family History Father Hypertension Surgical History H/O shoulder surgery History of cataract surgery History of colonoscopy (2011) History of coronary artery stent placement (05/22/15) History of extraction of renal calculus History of inguinal herniorrhaphy (07/09/19) History of prostatectomy Social History Smoking Status: Never smoker alcohol intake: never substance use type: does not use caffeine: Yes Type: carbonated beverages Number of servings: 1 what type of physical activity do you participate in: walking and bicycling frequency: daily duration: 60-90 minutes/day seatbelt use: always do you feel safe at home: Yes ROS ROS Narrative As per HPI Objective Data Objective Data Vital Signs: Vital Signs Last response Temperature 38.2 C H 04/09/23 01:00 Temperature Source Core 04/09/23 01:00 Pulse Rate 97 04/09/23 01:00 Respiratory Rate 29 H 04/09/23 01:00 Blood Pressure 106/91 H 04/09/23 01:00 Blood Pressure Mean 96 04/09/23 01:00 Blood Pressure Source Monitor 04/09/23 01:00 Blood Pressure Position Semi-Fowlers 04/09/23 01:00 Blood Pressure Location Right Arm 04/09/23 01:00 Pulse Ox 93 04/09/23 01:00 Oxygen Delivery Method High Flow 04/09/23 01:00 Oxygen Flow Rate (L/min) 15 04/09/23 01:00 I&O: I&O Last 24 Hours 04/08/23 04/08/23 04/09/23 11:59 23:59 11:59 Intake Total 3050 / 3050 1000 / 1000 Output Total 125 / 125 Balance 3050 / 2925 875 / 875 I&O: Total Stay 04/08/23 17:10 thru 04/09/23 00:07 Intake Total 4050 Output Total 125 Balance 3925 Current Meds Ordered / Administered: Current meds ordered / Administered Generic Name Dose Route Start Last Admin Trade Name Freq PRN Reason Stop Dose Admin Amlodipine Besylate 2.5 mg 04/09/23 10:00 Amlodipine 2.5 Mg Tablet PO BID [facility] Protocol Ascorbic Acid 500 mg 04/09/23 10:00 Ascorbic Acid 500 Mg Tablet PO DAILY [facility] Aspirin 81 mg 04/09/23 08:00 Aspirin 81 Mg Tab.Chew PO DAILY@0800 [facility] Atorvastatin Calcium 40 mg 04/09/23 22:00 Atorvastatin Calcium 40 Mg Tablet PO Q48H [facility] Clopidogrel Bisulfate 75 mg 04/09/23 10:00 Clopidogrel Bisulfate 75 Mg Tablet PO DAILY [facility] Famotidine 20 mg 04/08/23 22:47 04/09/23 01:05 Famotidine 20 Mg Tablet PO 20 mg QHS [facility] Administration Heparin Sodium (Porcine) 5,000 unit 04/09/23 10:00 Heparin Injection (Vial) 5,000 Unit/Ml Vial SC Q12 [facility] Piperacillin Sod/Tazobactam 50 mls @ 12.5 mls/hr 04/09/23 06:00 Sod 3.375 gm/ Sodium Chloride IV Q8 [facility] Sodium Chloride 250 mls @ 15 mls/hr 04/08/23 22:57 IV .[id number] PRN Additional IVPB Infusion Dextrose/Sodium Chloride 1,000 mls @ 75 mls/hr 04/09/23 00:40 04/09/23 01:02 IV 75 mls/hr .[id number] FANNY Administration Oxycodone HCl 2.5 - 5 mg 04/09/23 00:37 04/09/23 01:05 Oxycodone 5 Mg Tablet PO 5 mg Q4H PRN PRN Administration Pain Score 4-10 Sodium Chloride 10 - 40 ml 04/08/23 22:57 04/08/23 23:25 0.9% Saline Lock 10 Ml Syringe IV 20 ml UD PRN Administration SALINE FLUSH Physical Exam Narrative PHYSICAL EXAMINATION General: no acute distress; alert and oriented x 4 HEENT: PERRL; Anicteric Sclera; No thyromegaly, JVD Cardiovascular: Regular Rate and Rhythm; No murmurs, rubs, gallops; no displacedPMI Respiratory: no crackles, wheezes, or rhonchi Abdominal: Non-tender; Non-distended; Active BS x 4; No Hepatosplenomegaly, no CVA tenderness Extremities: Warm, well perfused; No clubbing, cyanosis, edema; capillary refill< 2sec Neurological: 5/5 Motor and Sensory Upper and Lower Extremities; CN 2-12 intact Lab / Micro Data Attestation: I reviewed the patient's lab results. 04/08/23 18:00 04/08/23 18:00 Labs: Laboratory Results - last 24 hr 04/08/23 18:00: WBC 15.6 H, RBC 3.57 L, Hgb 11.3 L, Hct 33.0 L, MCV 92.4, MCH 31.7, MCHC 34.2, RDW Std Deviation 44.8 H, RDW Coeff of Gaby 13.2, Plt Count 183,MPV 8.7, Immature Gran % (Auto) 0.900, Neut % (Auto) 96.0 H, Lymph % (Auto) 2.2 L, Fleming % (Auto) 0.8, Eos % (Auto) 0.0, Baso % (Auto) 0.1, Absolute Neuts (auto)15.0 H, Absolute Lymphs (auto) 0.35 L, Nucleated RBC % 0, Differential Comment SCANNED, Sodium 143, Potassium 3.9, Chloride 111 H, Carbon Dioxide 20.0 L, AnionGap 12, BUN 44 H, Creatinine 3.33 H, Estim Creat Clear Calc 20.40, Est GFR (MDRD) Af Amer 24 L, Est GFR (MDRD) Non-Af 19 L, BUN/Creatinine Ratio 13.2, Glucose 118 H, Calcium 9.3, Phosphorus 1.2 L, Total Bilirubin 1.40 H, AST 40 H, ALT 35, Alkaline Phosphatase 116, Total Creatine Kinase 176, Total Protein 6.3 L, Albumin 3.1 L, Globulin 3.2, Albumin/Globulin Ratio 1.0, Lipase 21 04/08/23 18:40: Lactic Acid 6.9 H* 04/08/23 19:45: Blood Type O POSITIVE, Antibody Screen NEGATIVE 04/08/23 21:46: PT 16.8 H, INR 1.4, APTT 34.5 04/08/23 22:36: Urine Color Yellow, Urine Clarity Clear, Urine pH 5.0, Ur Specific [place] 1.015, Urine Protein 30 H, Urine Glucose (UA) Normal, Urine Ketones Negative, Urine Occult Blood 50 H, Urine Nitrite Positive H, Urine Bilirubin Negative, Urine Urobilinogen Normal, Ur Leukocyte Esterase 100 H, Urine RBC 10-25 SEEN, Urine WBC 50-100 SEEN, Ur Squamous Epith Cells 0 SEEN, Urine Bacteria 3+, Urine Mucus 0 SEEN 04/08/23 23:18: Lactic Acid 8.9 H* Micro: Microbiology 04/08/23 18:40 Stool Stool Occult Blood (ALFONSO) - Final Occult Blood Positive 04/08/23 18:30 Mucosa - Nose SARS-CoV-2, Influenza & RSV (PCR) - Final Imaging Radiology Impression Chest X-Ray 04/08/23 18:40 IMPRESSION: No radiographic evidence of acute cardiopulmonary disease. Electronically Signed: Melchor Oviedo MD at 18:57 EST , Chest/Abdomen/Pelvis CT 04/08/23 19:45 IMPRESSION: 1. Diffuse scattered bilateral pulmonary nodules are stable. 2. Moderate left hydronephroureter caused by multiple distal ureteral stones. The largest measures 4 mm. Electronically Signed: Melchor Oviedo MD at 20:48 EST , Assessment and Plan . Assessment and plan: #UTI #Left Hydronephrosis #Renal Stones #Severe Sepsis #Acute respiratory failure, Hypoxia #Severe metabolic acidosis mostlikely due to renal failure and Sepsis #KAROL on CKD #CAD S/P Stents #HTN #HLD #MVR #Prostate Ca s/p prostatectomy #Sarcoidosis not on any medications Plan -Monitor patient's hemodynamics and respiratory status in ICU -Start on Incentive spirometer -Continue NC O2 -ABG as needed -PanCultures including Blood, sputum and urine as indicated -IVF +/- 30ml/Kg bolus - given previously -Patient currently on maintenance fluids -If needed will start on IV pressors - Levophed/Vasopressin/Neosynephrine -No steroids needed at this time -Monitor Lactic acid -Hold all HTN meds for now, start if SBP>130 -IV abx- Started on Zosyn -Urology consulted -Plan to place Ureteral stent -Tylenol for fever -Cooling blankets -Monitor Renal Function daily -Avoid nephrotoxic medications -Gibbs catheter to monitor I/O?s -Consider lasix if BP can tolerate -Consider Nephrology consult -DVT Px - Heparin SQ Critical Care Time: 63mins The entirety of this encounter was done via Telemedicine 04/09/23 0202 <Electronically signed by Patricio Amador MD> Cosigner Signature (if applicable): CC: Dr. Wenceslao Marquez MD; Dr. Teo Pelaez MD; Dr. Stephane Padilla DO; Dr. Gil Disla MD; Dr. Dennys Melgoza MD; Dr. Mau Acharya MD; Dr. Rufus Lane MD; Dr. Lori Gomes MD; Dr. Maynor Reaves MD; Dr. Abel Madrigal MD; Dr. Patricio Amador MD; Dr. Roger Feng MD; Dr. Oscar Calix MD; Dr. Carlos Burgos MD; Dr. Sruthi Billings MD~ Signed [facility] Work Phone: 1(830) 864-437402-12-2024 Consult note [address] Rufus Lane [facility] April 09, 2023 2:01am Note Date/Time April 08, 2023 9:21pm [facility] Medical Records Department [address] [place] [address] Consultation - Urology 04/08/232116 MR#: [id number] Acct: [id number] Name: ANDRÉS GUEVARA Rep #:[id number] : 1950 72 From: Rufus Lane MD PCP: Dr. Abel Madrigal MD Status: ADM IN Location: ICU ICU03-1 Assessment & Plan Assessment/Plan (1) Sepsis associated hypotension: HPI Consult Data Date of Consult: 04/08/23 HPI Narrative Reason for Consultation: sepsis w left ureteral stone HPI Narrative: ANDRÉS GUEVARA, is a 72 M who presents to ER w sonja and several obstructing stone in the left ureter, admitted to ICU add on tomorrow for cysto left st3nt placement HIRAM in Am once stabalized. [facility] Medical History Atherosclerosis of coronary artery of [place] heart without angina pectoris Calculus of left kidney Essential (primary) hypertension GERD (gastroesophageal reflux disease) History of back problems History of non-ST elevation myocardial infarction (NSTEMI) (05/22/15) Hyperlipidemia Myocardial infarct Neuralgia of groin Nonrheumatic mitral (valve) insufficiency Prostate cancer Right inguinal hernia 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 Home Medications aspirin 81 mg chewable tablet 81 mg PO DAILY@0800 09/18/18 [History Last Taken Unknown] famotidine 20 mg tablet (Acid Innersole Maker (famotidine)) 20 mg PO QHS gerd 04/11/19 [History Last Taken Unknown] ascorbate calcium (vitamin C) 500 mg tablet 500 mg PO DAILY 07/01/19 [History Last Taken Unknown] multivitamin-ferrous fumarate-folic acid 18 mg-400 mcg tablet (Centrum Complete)1 tab PO QHS 07/01/19 [History Last Taken Unknown] ergocalciferol (vitamin D2) 1,250 mcg (50,000 unit) capsule (Vitamin D2) 1,250 mcg PO Q2W 10/07/19 [History Last Taken Unknown] losartan 100 mg tablet 100 mg PO DAILY htn #90 tabs 04/25/22 [Rx Last Taken Unknown] atorvastatin 40 mg tablet 40 mg PO .qod #45 tabs 08/17/22 [Rx Last Taken Unknown] clopidogrel 75 mg tablet 75 mg PO DAILY #90 tabs 08/30/22 [Rx Last Taken Unknown] amlodipine 2.5 mg tablet 2.5 mg PO BID #180 tabs 09/15/22 [Rx Last Taken Unknown] Allergy/AdvReac Type Severity Reaction Status Date / Time No Known Allergies Allergy Verified 04/08/23 17:12 Family History Father Hypertension Surgical History H/O shoulder surgery History of cataract surgery History of colonoscopy (2011) History of coronary artery stent placement (05/22/15) History of extraction of renal calculus History of inguinal herniorrhaphy (07/09/19) History of prostatectomy Social History Smoking Status: Never smoker alcohol intake: never substance use type: does not use caffeine: Yes Type: carbonated beverages Number of servings: 1 what type of physical activity do you participate in: walking and bicycling frequency: daily duration: 60-90 minutes/day seatbelt use: always do you feel safe at home: Yes Physical Exam Const alert and oriented x3 General Appearance: cooperative HEENT normocephalic and head/scalp atraumatic Eyes PERRL and EOMs intact bilaterally Neck supple, no JVD and no carotid bruits Resp normal respiratory effort, normal air movement and clear to auscultation bilaterally Cardio regular rate and no murmurs GI normal to inspection, nondistended, normoactive bowel sounds and soft to palpation Extremity normal capillary refill General Extremity: no tenderness to palpation of joints or extremities; Negativefor edema Skin no rashes or lesions noted and no wounds General Skin Exam: no breakdown Neuro CN's II-XII intact bilaterally Psych affect normal Appearance: appropriate Lab / Micro Data 04/08/23 18:00 04/08/23 18:00 Labs: Laboratory Results - last 24 hr 04/08/23 18:00: WBC 15.6 H, RBC 3.57 L, Hgb 11.3 L, Hct 33.0 L, MCV 92.4, MCH 31.7, MCHC 34.2, RDW Std Deviation 44.8 H, RDW Coeff of Gaby 13.2, Plt Count 183,MPV 8.7, Immature Gran % (Auto) 0.900, Neut % (Auto) 96.0 H, Lymph % (Auto) 2.2 L, Fleming % (Auto) 0.8, Eos % (Auto) 0.0, Baso % (Auto) 0.1, Absolute Neuts (auto)15.0 H, Absolute Lymphs (auto) 0.35 L, Nucleated RBC % 0, Differential Comment SCANNED, Sodium 143, Potassium 3.9, Chloride 111 H, Carbon Dioxide 20.0 L, AnionGap 12, BUN 44 H, Creatinine 3.33 H, Estim Creat Clear Calc 20.40, Est GFR (MDRD) Af Amer 24 L, Est GFR (MDRD) Non-Af 19 L, BUN/Creatinine Ratio 13.2, Glucose 118 H, Calcium 9.3, Phosphorus 1.2 L, Total Bilirubin 1.40 H, AST 40 H, ALT 35, Alkaline Phosphatase 116, Total Protein 6.3 L, Albumin 3.1 L, Globulin 3.2, Albumin/Globulin Ratio 1.0, Lipase 21 04/08/23 18:40: Lactic Acid 6.9 H* 04/08/23 19:45: Blood Type O POSITIVE, Antibody Screen NEGATIVE Micro: Microbiology 04/08/23 18:40 Stool Stool Occult Blood (ALFONSO) - Final Occult Blood Positive 04/08/23 18:30 Mucosa - Nose SARS-CoV-2, Influenza & RSV (PCR) - Final Imaging Radiology Impression Chest X-Ray 04/08/23 18:40 IMPRESSION: No radiographic evidence of acute cardiopulmonary disease. Electronically Signed: Melchor Oviedo MD at 18:57 EST Reading Location ID and State: [facility] / [place] , Service support , Chest/Abdomen/Pelvis CT 04/08/23 19:45 IMPRESSION: 1. Diffuse scattered bilateral pulmonary nodules are stable. 2. Moderate left hydronephroureter caused by multiple distal ureteral stones. The largest measures 4 mm. Electronically Signed: Melchor Oviedo MD at 20:48 EST Reading Location ID and State: [facility] / [place] , Service support , 04/08/232119 <Electronically signed by Rufus Lane MD> Cosigner Signature (if applicable): CC: Dr. Wenceslao Marquez MD; Dr. Teo Pelaez MD; Dr. Stephane Padilla DO; Dr. Gil Disla MD; Dr. Dennys Melgoza MD; Dr. Mau Acharya MD; Dr. Rufus Lane MD; Dr. Lori Gomes MD; Dr. Maynor Reaves MD; Dr. Abel Madrigal MD; Dr. Patricio Amador MD; Dr. Roger Feng MD; Dr. Oscar Calix MD; Dr. Carlos Burgos MD; Dr. Sruthi Billings MD~ Signed ADDENDUM by Dr. Rufus Lane MD on 04/09/23 at 0201 Addendum 72-year-old male comes in with sepsis obstructing stone in the distal left ureter and severe hydronephrosis I think for his best care possible and taken tosurgery immediately for any cystoscopy stent placement, despite aggressive fluidhydration the patient still has a very low blood pressure and the sooner we decompress his left kidney and deal with the obstruction more likely he will improve. I did speak with the patient regarding this this evening and working to proceed with cystoscopy and left stent placement. Surgical team has been called in and working to place a stent on the left side told the patient is possible if I can place a stent for some reason he may have to have a nephrostomy tube. 04/09/23 0201<Electronically signed by Rufus Lane MD> Cosigner Signature (if applicable): cc: Dr. Wenceslao Marquez MD; Dr. Teo Pelaez MD; Dr. Stephane Padilla DO; Dr. Gil Disla MD; Dr. Dennys Melgoza MD; Dr. Mau Acharya MD; Dr. Rufus Lane MD; Dr. Lori Gomes MD; Dr. Maynor Reaves MD; Dr. Abel Madrigal MD; Dr. Patricio Amador MD; Dr. Roger Feng MD; Dr. Oscar Calix MD; Dr. Carlos Burgos MD; Dr. Sruthi Billings MD ~* Signed [facility] Work Phone: 1(147) 323-943102-12-2024 Procedure [facility] 06-12-2022 History of Present illness Narrative* Abel Madrigal MD - 06/12/2022 8:00 AM EDT Subjective Reason for Visit: Andrés Guevara is an 71 y.o. male here for a Medicare Wellness visit. Past Medical, Surgical, and Family History reviewed and updated in chart. Reviewed all medications by prescribing practitioner or clinical pharmacist (such as prescriptions,OTCs, herbal therapies and supplements) and documented in the medical record. FEELS FINE, NO COMPLANT Wellness exam Patient Care Team: Abel Madrigal MD as PCP - General Abel Madrigal MD as PCP - [employer] Medicare [...] Sitting) Pulse 60 Ht 1.778 m (5' 10) Wt 76.7 kg (169 lb) BMI 24.25 [...] Fu 6 [facility]: [phone]) 135-908903-26-2016 Evaluation note* Diagnosis Onset Date Resolution Status Essential (primary) hypertension chronic History of coronary artery stent placement May 22, 2015 [facility] Work Phone: [phone]) 512-824603-26-2016 Evaluation note* Diagnosis Onset Date Resolution Status Essential (primary) hypertension chronic History of coronary artery stent placement May 22, 2015 chronic Hyperlipidemia [facility] Work Phone: Consult note Author Ting Mccauley [facility] April 13, 2023 4:01pm Note Date/Time April 13, 2023 4:01pm [facility] Medical Records Department [address] [place] [address] Counseling Note - Pharmacy 04/13/23 1600 MR#: [id number] Acct: [id number] Name: ANDRÉS GUEVARA Rep #:[id number] : 1950 72 From: Ting Mccauley PCP: Dr. Abel Madrigal MD Status: ADM IN Location: [place] [address] Pharmacy [facility] Pharm[facility] Service has performed discharge medication reconciliation and counseling for this patient. 1. LEVOFLOXACIN 750MG PO Q48 X 3 DOSES 2. NASAL SPRAY 2SPRAYS TID PRN NASAL DRYNESS The patient's discharge medication list was reviewed for discrepancies and discrepancies were resolved. The patient was counseled on the following discharge medications and changes in medications for homegoing were reviewed. The Reason for Use, instructions for use, and potential side effects were reviewed for all new medications. The patient's questions regarding all of their medications were answered. The patient was able to verbally demonstrate an understanding of their dischargemedications. Medications at Discharge Home Medications aspirin 81 mg chewable tablet 81 mg PO DAILY@0800 09/18/18 famotidine 20 mg tablet (Acid Innersole Maker (famotidine)) 20 mg PO QHS gerd 04/11/19 ascorbate calcium (vitamin C) 500 mg tablet 500 mg PO DAILY 07/01/19 multivitamin-ferrous fumarate-folic acid 18 mg-400 mcg tablet (Centrum Complete)1 tab PO QHS 07/01/19 ergocalciferol (vitamin D2) 1,250 mcg (50,000 unit) capsule (Vitamin D2) 1,250 mcg PO Q2W 10/07/19 losartan 100 mg tablet 100 mg PO DAILY htn #90 tabs 04/25/22 atorvastatin 40 mg tablet 40 mg PO .qod #45 tabs 08/17/22 clopidogrel 75 mg tablet 75 mg PO DAILY #90 tabs 08/30/22 amlodipine 2.5 mg tablet 2.5 mg PO BID #180 tabs 09/15/22 levofloxacin 750 mg tablet 750 mg PO Q48H #3 tabs 04/13/23 sodium chloride 0.65 % nasal spray aerosol (Deep Sea Nasal) 2 spray NASAL TID PRN PRN NASAL DRYNESS #0 mL 04/13/23 04/13/23 1601 <Electronically signed by Ting Mccauley> Date _ Ting Mccauley Cosigner Signature (if applicable): Date CC: ~ Signed [facility] Work Phone: Evaluation noteNo assessment information available [facility] Work Phone: Evaluation note* Diagnosis Routine general medical examination at health care facility- Primary Routine general medical examination at a health care facility Malignant neoplasm of prostate (CMS/HCC) Malignant neoplasm of prostate Chronic kidney failure, stage 3 (moderate) (CMS/HCC) Coronary artery disease involving [place] heart without angina pectoris, unspecified vessel or lesion type Primary hypertension Unspecified essential hypertension Vitamin D deficiency documented in this encounter [facility] Work Phone: Evaluation note* Diagnosis COVID-19- Primary documented in this encounter [facility] Work Phone: Evaluation note* Diagnosis Onset Date Resolution Status KAROL (acute kidney injury) ac jessica Calculus of left kidney acut e Sepsis associated hypotension acute Septic shock due to urinary tract infection acute UTI (urinary tract infection) acute Sarcoidosis of lung chronic Stage III chronic kidney disease chronic [facility] Work Phone: Evaluation note* Diagnosis Chronic kidney failure, stage 3 (moderate) ([facility])- Primary H/O urinary tract infection Nephrolithiasis Calculus of kidney Malignant neoplasm of prostate ([facility]) Malignant neoplasm of prostate Bilateral lower extremity edema documented in this encounter [facility] Work Phone: Evaluation note* Diagnosis Chronic kidney failure, stage 3 (moderate) ([facility])- Primary Gastroesophageal reflux disease, unspecified whether esophagitis present Vitamin D deficiency Primary hypertension Unspecified essential hypertension documented in this encounter [facility] Work Phone: Evaluation note* Diagnosis Onset Date Resolution Status KAROL (acute kidney injury) re solved Calculus of left kidney reso lved Sepsis associated hypotension resolved Septic shock due to urinary tract infection resolved UTI (urinary tract infection) resolved [facility] Work Phone: Evaluation note* Diagnosis Routine general medical examination at health care facility- Primary Routine general medical examination at a health care facility Chronic kidney failure, stage 3 (moderate) (Multi) Primary hypertension Unspecified essential hypertension Vitamin D deficiency Hypercholesterolemia Pure hypercholesterolemia documented in this encounter [facility] Work Phone: Evaluation note* Diagnosis Primary hypertension- Primary Unspecified essential hypertension Need for immunization against influenza Need for prophylactic vaccination and inoculation against influenza Chronic kidney failure, stage 3 (moderate) (Multi) Hypercholesterolemia Pure hypercholesterolemia Vitamin D deficiency Seborrheic dermatitis Unspecified seborrheic dermatitis documented in this encounter [facility] Work Phone: Evaluation note* Diagnosis Routine general medical examination at health care facility- Primary Routine general medical examination at a health care facility Chronic kidney failure, stage 3 (moderate) (Multi) Primary hypertension Unspecified essential hypertension Hypercholesterolemia Pure hypercholesterolemia Malignant neoplasm of prostate (Multi) Malignant neoplasm of prostate Right inguinal pain Abdominal pain, right lower quadrant documented in this encounter [facility] Work Phone: Evaluation note* Diagnosis Routine general medical examination at health care facility- Primary Routine general medical examination at a health care facility Chronic kidney failure, stage 3 (moderate) (Multi) Primary hypertension Unspecified essential hypertension Hypercholesterolemia Pure hypercholesterolemia Malignant neoplasm of prostate (Multi) Malignant neoplasm of prostate Right inguinal pain Abdominal pain, right lower quadrant Chronic kidney failure, stage 3 (moderate) (Multi)- Primary Primary hypertension Unspecified essential hypertension Vitamin D deficiency documented in this encounter [facility] Work Phone: History of Present illness Narrative* PT C/O left wrist pain no numbness no tingling * FOR a couple of month * SEVERITY: mild * CHARACTERISTIC: chronic * EXACERBATION FACTOR: none * RELIEVING FACTOR: none * ASSOCIATED SYMPTOMS: none * PRIOR TX: [facility] -[facility] Work Phone: History of [...] TAKE MEDS FOR IT * WELLNESS EXAM [facility] Work Phone: History of Present illness Narrative* HERE FOR F/U WITH LAB * FEELS FINE * POST ER, DID NOT HAVE PNEUMONIA JUST SCAR OF SARCOIDOSIS [facility] Work Phone: History of Present illness Narrative* PT C/O LBP WITH RADIATION TO THE RIGHT LE, AFTER RACKING * FOR 5 DAYS * SEVERITY: MODERATE * CHARACTERISTIC: ACUTE * EXACERBATION FACTOR: EXERTION * RELIEVING FACTOR: REST * ASSOCIATED SYMPTOMS:TINGLING RIGHT LE * PRIOR TX: TYLRNOL, ICEING [facility] Work Phone: History of Present illness NarrativeHERE FOR F/U FEELS BETTERSt[facility] Work Phone: History of Present illness Narrative* Abel Madrigal MD - 03/08/2023 4:00 PM EST Subjective Patient ID: Andrés Guevara is a [...] since it is a very mild erika rivka just watch Call me if worse documented in this [facility] Work Phone: Progress note Author Ana Laura Gonsalez tr [facility] April 13, 2023 4:47pm Note Date/Time April 13, 2023 4:47pm [facility] Medical Records Department [address] [place] [address] Progress Note - Nephrology 04/13/23 1643 MR#: [id number] Acct: [id number] Name: ANDRÉS GUEVARA Rep #:[id number] : 1950 72 From: Ana Laura shne MD PCP: Dr. Abel Madrigal MD Status: ADM IN Location: [place] [address] Subjective Subjective Following for KAROL and CKD. The patient is being discharged today. He denies chest pain or shortness of breath. He does complain of fatigue although he did just finish physical therapy. There is no nausea or vomiting. Objective Data Objective Data Vital Signs: Vital Signs Temp Pulse Resp BP Pulse Ox O2 Del Method O2 Flow Rate 98.0 F 72 16 140/67 H 92 Room Air 2 04/13/23 15:34 04/13/23 15:34 04/13/23 15:34 04/13/23 15:34 04/13/23 15:34 04/13/23 15:49 04/13/23 07:51 FiO2 30 04/11/23 06:00 Oxygen Flow Rate (L/min) 2 Oxygen Delivery Method Room Air Weight: 78.7 kg Body Mass Index (BMI) 24.9 Intake & Output: Intake and Output for Last 24 Hours 04/11/23 04/12/23 04/13/23 23:59 23:59 23:59 Intake Total 400 / 400 1450.5833 / 1450.5833 56.25 / 56.25 Output Total 1675 / 1675 4600 / 4600 1375 / 1375 Balance -1275 / -1275 -3149.4167 / -3149.4167 -1318.75 / -1318.75 Lab / Micro Data 04/13/23 06:40 04/13/23 06:40 Labs: Laboratory Results - last 24 hr 04/13/23 06:40: WBC 30.6 H*, RBC 3.22 L, Hgb 10.1 L, Hct 29.4 L, MCV 91.3, MCH 31.4, MCHC 34.4, RDW Std Deviation 49.1 H, RDW Coeff of Gaby 14.6, Plt Count 68 L, MPV 10.9, Immature Gran % (Auto) FOAM TANK LAMINATOR, Neut % (Auto) FOAM TANK LAMINATOR, Lymph % (Auto) FOAM TANK LAMINATOR, Fleming% (Auto) FOAM TANK LAMINATOR, Eos % (Auto) FOAM TANK LAMINATOR, Baso % (Auto) FOAM TANK LAMINATOR, Absolute Neuts (auto) 24.5 H, Absolute Lymphs (auto) 1.21, Total Counted 100, Neutrophils % (Manual) 87 H, Lymphocytes % (Manual) 4 L, Monocytes % (Manual) 8, Other Cells % 1, Nucleated RBC % 0.2, Differential Comment SCANNED, Diff Path Review June, Sodium 146 H, Potassium 3.9, Chloride 117 H, Carbon Dioxide 23.0, Anion Gap 6, BUN 59 H, Creatinine 1.70 H, Estim Creat Clear Calc 39.96, Est GFR (MDRD) Af Amer 51 L, Est GFR (MDRD) Non-Af 42 L, BUN/Creatinine Ratio 34.7 H, Glucose 99, Calcium 8.0L, Phosphorus 3.1, Total Bilirubin 1.20 H, AST 109 H, ALT 259 H, Alkaline Phosphatase 256 H, Total Protein 5.9 L, Albumin 1.9 L, Globulin 4.0, Albumin/Globulin Ratio 0.5 L Micro: Microbiology 04/08/23 22:36 Urine, Clean Catch Urine Culture - Final Escherichia coli 04/08/23 18:58 Blood Culture (Wb) - Anticubital Left Blood Culture - Final Escherichia coli 04/08/23 18:50 Blood Culture (Wb) - Anticubital Right Blood Culture - Preliminary 04/08/23 18:40 Stool Stool Occult Blood (ALFONSO) - Final Occult Blood Positive 04/08/23 18:30 Mucosa - Nose SARS-CoV-2, Influenza & RSV (PCR) - Final Physical Exam Narrative Alert awake oriented x 3 no obvious distress s1s2 no murmurs lungs clear anteriorly, diminished breath sounds posterior bases. On O2 2 L nasal cannula abdomen soft, nontender no edema gibbs + with pinkish-yellow urine in bag, no clots Assessment & Plan Assessment/Plan (1) KAROL (acute kidney injury): PLAN: - CKD stage IIIa, baseline creatinine around 1.5. Patient was admitted with severe septic shock. KAROL likely ATN in the setting of sepsis, hypotension. CT abdomen with left-sided hydronephrosis, he is s/p stenting 04/09. Clinicallyimproving. Off Levophed drip for few days. SCr 3.61mg/dL 04/09--> today Scr 1.70. There is no acute indication for BUREAU DIRECTOR. Patient has good urine output. Potassium is 3.9. -Discussed follow-up plan with the patient and his daughter. The patient shouldbe seen within a month of discharge. In regards to his hypokalemia and hypophosphatemia, his renal function is good enough that he should be able to drink milk to replace both. The patient had been complaining about the cost of Neutra-Phos. - Patient has a history of hypophosphatemia in past and was on phos supplements. However, the cause of Neutra-Phos was high recently. I think and get away with1 to 2 glasses of milk per day which is basically what is in Neutra-Phos. We will recheck phosphorus level along with renal function and potassium level prior to next visit. - Lactic acidosis. S/p IV fluid resuscitation. Off pressors. White count peaked at 44,000 yesterday, today 30.6. -Septic shock secondary to ecoli UTI, with obstructing stones; s/p ureteral stent placement. IV antibiotics changed from Zosyn to now on ceftriaxone. No further intervention per urology until sepsis resolved. - acute hypoxic respiratory failure; Required bipap, now on O2 nasal cannula at 3 L. Received dose lasix again yesterday. -Discussed nephrology plan with Dr. Martinez. (2) Stage III chronic kidney disease: QUALIFIERS: Chronic kidney disease stage 3 subtype: stage 3a (GFR 45-59) Qualified Code(s): N18.31 - Chronic kidney disease, stage 3a 04/13/23 [id number] <Electronically signed by Ana Laura Russell MD> Cosigner Signature (if applicable): CC: ~ Signed [facility] Work Phone: Reason for referral (narrative)No reason for referral information availableKeenan [facility] Hospital Work Phone: Summary Purpose Family History [...] neoplasm of skin: Father, Sister(V16.8, Z80.8) Status:Active Relationship Condition Age at Onset Recorded Date/T stefan father Hypertension Unknown Unknown Family Member Name Dates Details Family [...] Status:Active Advance Directives No Advanced Directives Records Found Advance Directive Response Recorded Date/ Time Advance Directives No October 4:35pm Living Will Yes July 07, 2019 1 :28pm Power of Biopharmaceutical Rep Yes July 07, 2019 1:28pm Advance Directive Response Recorded Date/ Time Name of Medical Power of Biopharmaceutical Rep CATHERINE FLOWER December 08, 2021 5:53am Advance Directives No October 3:35pm Living Will Yes December 08 5:53am Power of Biopharmaceutical Rep Yes December 08, 2021 5:53am Advance Directive Response Recorded Date/ Time Advance Directives No October 3:35pm Living Will Yes December 08 5:53am Power of Biopharmaceutical Rep Yes December 08, 2021 5:53am Advance Directive Response Recorded Date/ Time Advance Directives No October 4:35pm Living Will Yes December 08 6:53am Power of Biopharmaceutical Rep Yes December 08, 2021 6:53am Advance Directive Response Recorded Date/ Time Name of Medical Power of Biopharmaceutical Rep Catherine (daught er) April 08, 2023 10:49pm Advance Directives No October 3:35pm Living Will Yes April 08 10:49pm Power of Biopharmaceutical Rep Yes April 08, 2023 10:49pm Advance Directive Response Recorded Date/ Time Name of Medical Power of Biopharmaceutical Rep Catherine (daught er) April 08, 2023 11:49pm Advance Directives No October 4:35pm Living Will Yes April 08 11:49pm Power of Biopharmaceutical Rep Yes April 08, 2023 11:49pm Healthcare Agents on File Name Relationship Healthcare Agent Relationshi p Communication Catherinemoon Mirandaall Child Health Care Agent Healthcare Agents on File Name Relationship Healthcare Agent Relationshi p Communication Catherine [place] Child Health Care Agent Advance Directive Response Recorded Date/ Time Living Will Yes April 08 11:49pm Do you have a Healthcare Power of Biopharmaceutical Rep? Yes April 08, 2023 11:49pm Advance Directives No October 4:35pm Healthcare Agents on File Name Relationship Healthcare Agent Relationshi p Communication Catherine Crystal Child Health Care Agent Healthcare Agents on File Name Relationship Healthcare Agent Relationshi p Communication Catherine Crystal Child Health Care Agent Advance Directive Response Recorded Date/ Time Living Will Yes April 08 10:49pm Do you have a Healthcare Power of Biopharmaceutical Rep? Yes April 08, 2023 10:49pm Advance Directives No October 3:35pm Chief Complaint 6 MO F/U WITH LABS. C/O NEUROPATHY AND LT WRIST PAIN6 [facility] F/U LABS-[facility]; C/O LOW BACK PAIN AND B/L FOOT PAIN AND TINGLING AT TIMES6 MO FU LAB TODAY PT WAS SEEN IN ER FOR INDIGESTION BUT EVERYTHING CHECKED OUT OKC/O LOW BACK PAIN RADIATING INTO RT LEG.PT HERE TODAY TO F/U AFTER XRAY. PT STATES HE IS FEELING BETTER Chief Complaint and Reason for Visit Chief Complaint 1 Y FU Reason for Visit Essential (primary) hypertension History of coronary artery stent placement Chief Complaint 1 Y FU INDIGESTION INDIGESTION CHRONIC COUGH Reason for Visit Essential (primary) hypertension History of coronary artery stent placement Chief Complaint INDIGESTION INDIGESTION CHRONIC COUGH Chief Complaint CHRONIC COUGH SARCOIDOSIS Chief Complaint SARCOIDOSIS 2 ORDERING DOCTORS Chief Complaint 1 Y FU Reason for Visit Essential (primary) hypertension History of coronary artery stent placement Hyperlipidemia Chief Complaint SEPSIS WITH UTI SEPSIS UTI SEPSIS WITH UTI SEPSIS WITH UTI SEPSIS WITH UTI SEPSIS WITH UTI SEPSIS WITH UTI SEPSIS WITH UTI SEPSIS WITH UTI SEPSIS WITH UTI SEPSIS WITH UTI SEPSIS WITH UTI Reason for Visit KAROL (acute kidney in jury) Calculus of left kidney Sepsis associated hypotension Septic shock due to urinary tract infection UTI (urinary tract infection) 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 Chief Complaint SEPSIS WITH UTI SEPSIS UTI SEPSIS WITH UTI SEPSIS WITH UTI SEPSIS WITH UTI SEPSIS WITH UTI SEPSIS WITH UTI SEPSIS WITH UTI SEPSIS WITH UTI SEPSIS WITH UTI SEPSIS WITH UTI SEPSIS WITH UTI 2 ORDERING DOCTORS/SCANNED Reason for Visit KAROL (acute kidney in jury) Calculus of left kidney Sepsis associated hypotension Septic shock due to urinary tract infection UTI (urinary tract infection) Chief Complaint Admit Date 6 M FU March 31, 2024 3 :23pm CAD April 11, 2024 6:26am Coronary artery disease April 11, 2 025 5:05pm Reason for Visit Admit Date Atherosclerosis of coronary artery of [place] heart without angina pectoris March 31, 2024 3:23pm Essential (primary) hypertension 2024 3:23pm History of coronary artery stent placeme nt March 31, 2024 3:23pm Hyperlipidemia March 31, 2024 3 :23pm Chief Complaint Admit Date MODULITIS/HAMSTRING STRAIN. PT HAS RX Au 2024 8:00am 1 Y FU December 02, 2024 8: 54am Reason for Visit Admit Date Essential (primary) hypertension December 02, 2024 8:54am History of coronary artery stent placeme nt December 02, 2024 8:54am Hyperlipidemia December 02, 2024 8: 54am Additional Source Comments (unrecognized sect ion and content) No Status Records FoundNo Status Records FoundNo Status Records FoundNo Status Records FoundNo Status Records Found INFORMATION SOURCE (unrecogn ized section and content) DATE CREATED AUTHOR 05/07/2018 [facility] DATE CREATED AUTHOR AUTHOR'S ORGANIZ ATION 01/12/2022 [facility] DATE CREATED AUTHOR AUTHOR'S ORGANIZ ATION 01/12/2022 [employer] DATE CREATED AUTHOR AUTHOR'S ORGANIZ ATION 12/16/2024 [facility] DATE CREATED AUTHOR AUTHOR'S ORGANIZ ATION 01/02/2025 [facility] Goals (unrecognized section and content) Goals may be documented in a n alternate sectionGoals may be documented in an alternate sectionGoals may be documented in an alternate sectionGoals may be documented in an alternate sectionGoals may be documented in an alternate sectionGoals may be documented in an alternate sectionGoals may be documented in an alternate sectionGoals may be documented in an alternate sectionGoals may be documented in an alternate sectionGoals may be documented in an alternate sectionGoals may be documented in an alternate sectionGoals may be documented in an alternate sectionGoals may be documented in an alternate sectionGoals may be documented in an alternate section Care Teams (unrecognized sec tion and content) Team Status: Active Member Role Status Dates Dr. Abel Madrigal MD Family Provider Active Dr. Abel Madrigal MD Primary Care Provider Activ e Team Status: Inactive Member Role Status Dates Dr. Abel Madrigal MD Primary Care Provider, Atte nding Provider Active Team Status: Inactive Member Role Status Dates Dr. Abel Madrigal MD Primary Care Provider Activ e Dr. Dario Sanders MD Attending Provider, Maria De Jesus pack Provider Active Team Status: Inactive Member Role Status Dates Dr. Abel Madrigal MD Primary Care Provider Activ e LISETTE Guzmán Attending Provider, Maria De Jesus pack Provider Active Supervisor Intelligence Analyst Relationship Specialty Start Date End Date Abel Madrigal MD [address] [place] [address] PCP General 04/03/19 Abel Madrigal MD [address] [place] [address] PCP - [employer] Medicare Advantage PCP 03/29/21 Team Status: Inactive Member Role Status Dates Dr. Abel Madrigal MD Primary Care Provider Activ e Dr. Mau Acharya MD Attending Provider, Referri ng Provider Active Team Status: Inactive Member Role Status Dates Dr. Abel Madrigal MD Primary Care Provider, Refe rring Provider Active Phyllis Givens PA, PA Attending Provider Active Team Status: Inactive Member Role Status Dates Dr. Abel Madrigal MD Primary Care Provider, Attending Provider, Referring Provider Active Supervisor Intelligence Analyst Relationship Specialty Start Date End Date Abel Madrigal MD [address] [place] [address] [facility] General 04/03/19 Abel Madrigal MD [address] [place] [address] PCP - [employer] Medicare Advantage PCP 02/26/21 Team Status: Active Member Role Status Dates Dr. Abel Madrigal MD Primary Care Provider Activ e Dr. Fatmata Brower , Emergency Provider Active Dr. Rufus Lane MD Other Provider Active Dr. Bubba Youngblood MD Admit Provider, A ttending Provider, Other Provider Active Dr. Wenceslao Marquez MD Other Provider Active Dr. Teo Pelaez MD Other Provider Active Dr. Stephane Padilla , Other Provider Active Dr. Gil Disla MD Other Provider Active Dr. Sruthi Billings MD Other Provider Active Dr. Dennys Melgoza MD Other Provider Active Dr. Lori Gomes MD Other Provider Active Dr. Maynor Reaves MD Other Provider Active Dr. Patricio Amador MD Other Provider Active Dr. Roger Feng MD Other Provider Active Dr. Oscar Calix MD Other Provider Active Dr. Carlos Burgos MD Other Provider Active Dr. Mau Acharya MD Other Provider Active Team Status: Active Member Role Status Dates Dr. Abel Madrigal MD Primary Care Provider Activ e Dr. Fatmata Brower , DO Emergency Provider Active Dr. Rufus Lane MD Other Provider Active Dr. Bubba Youngblood MD Admit Provider, Other Provider Active Dr. Wenceslao Marquez MD Other Provider Active Dr. Teo Pelaez MD Attending Provider, Other Provid er Active Dr. Stephane Padilal , DO Other Provider Active Dr. Gil Disla MD Other Provider Active Dr. Sruthi Billings MD Other Provider Active Dr. Dennys Melgoza MD Other Provider Active Dr. Lori Gomes MD Other Provider Active Dr. Maynor Reaves MD Other Provider Active Dr. Patricio Amador MD Other Provider Active Dr. Roger Feng MD Other Provider Active Dr. Oscar Calix MD Other Provider Active Dr. Carlos Burgos MD Other Provider Active Dr. Mau Acharya MD Other Provider Active Dr. Wesley Martinez , Other Provider Active Team Status: Active Member Role Status Dates Dr. Abel Madrigal MD Primary Care Provider Activ e Dr. Fatmata Brower , DO Emergency Provider Active Dr. Rufus Lane MD Other Provider Active Dr. Bubba Youngblood MD Admit Provider, Other Provider Active Dr. Wenceslao Marquez MD Other Provider Active Dr. Teo Pelaez MD Other Provider Active Dr. Stephane Padilla , DO Other Provider Active Dr. Gil Disla MD Other Provider Active Dr. Sruthi Billings MD Other Provider Active Dr. Dennys Melgoza MD Other Provider Active Dr. Lori Gomes MD Other Provider Active Dr. Maynor Reaves MD Other Provider Active Dr. Patricio Amador MD Other Provider Active Dr. Roger Feng MD Other Provider Active Dr. Oscar Calix MD Other Provider Active Dr. Carlos Burgos MD Other Provider Active Dr. Mau Acharya MD Other Provider Active Dr. Wesley Martinez DO Attending Provider, Other Provid er Active Team Status: Active Member Role Status Dates Dr. Abel Madrigal MD Primary Care Provider Activ e Dr. Wesley Uriostegui MD Attending Provider Active Team Status: Active Member Role Status Dates Dr. Abel Madrigal MD Primary Care Provider Activ e Dr. Fatmata Brower , Emergency Provider Active Dr. Rufus Lane MD Other Provider Active Dr. Bubba Youngblood MD Admit Provider, Other Provider Active Dr. Wesley Martinez DO Other Provider Active Dr. Wenceslao Marquez MD Other Provider Active Dr. Teo Pelaez MD Attending Provider, Other Provid er Active Dr. Stephane Padilla , Other Provider Active Dr. Gil Disla MD Other Provider Active Dr. Sruthi Billings MD Other Provider Active Dr. Dennys Melgoza MD Other Provider Active Dr. Lori Gomes MD Other Provider Active Dr. Maynor Reaves MD Other Provider Active Dr. Patricio Amador MD Other Provider Active Dr. Roger Feng MD Other Provider Active Dr. Oscar Calix MD Other Provider Active Dr. Carlos Burgos MD Other Provider Active Dr. Mau Acharya MD Other Provider Active Team Status: Active Member Role Status Dates Dr. Abel Madrigal MD Primary Care Provider Activ e Dr. Fatmata Brower , Emergency Provider Active Dr. Rufus Lane MD Other Provider Active Dr. Bubba Youngblood MD Admit Provider, Other Provider Active Dr. Wesley Martinez DO Attending Provider, Other Provid er Active Dr. Wenceslao Marquez MD Other Provider Active Dr. Teo Pelaez MD Other Provider Active Dr. Stephane Padilla DO Other Provider Active Dr. Gil Disla MD Other Provider Active Dr. Sruthi Billings MD Other Provider Active Dr. Dennys Melgoza MD Other Provider Active Dr. Lroi Gomes MD Other Provider Active Dr. Maynor Reaves MD Other Provider Active Dr. Patricio Amador MD Other Provider Active Dr. Roger Feng MD Other Provider Active Dr. Oscar Calix MD Other Provider Active Dr. Carlos Burgos MD Other Provider Active Dr. Mau Acharya MD Other Provider Active Team Status: Inactive Member Role Status Dates Dr. Abel Madrigal MD Primary Care Provider Activ e Dr. Fatmata Brower , DO Emergency Provider Active Dr. Rufus Lane MD Other Provider Active Dr. Bubba Youngblood MD Admit Provider, Other Provider Active Dr. Wesley Martinez , DO Attending Provider Active Dr. Wenceslao Marquez MD Other Provider Active Dr. Teo Pelaez MD Other Provider Active Dr. Stephane Padilla , DO Other Provider Active Dr. Gil Disla MD Other Provider Active Dr. Sruthi Billings MD Other Provider Active Dr. Dennys Melgoza MD Other Provider Active Dr. Lori Gomes MD Other Provider Active Dr. Maynor Reaves MD Other Provider Active Dr. Patricio Amador MD Other Provider Active Dr. Rogre Feng MD Other Provider Active Dr. Oscar Calix MD Other Provider Active Dr. Carlos Burgos MD Other Provider Active Dr. Mau Acharya MD Other Provider Active Supervisor Intelligence Analyst Relationship Specialty Start Date End Date Abel Madrigal MD [address] [place] [address] PCP - General 04/03/19 Abel Madrigal MD [address] [place] [address] PCP - [employer] Medicare Advantage PCP 02/26/21 Amarilis Swanson, presser cotton ginningBank Analyst 04/16/23 Supervisor Intelligence Analyst Relationship Specialty Start Date End Date Abel Madrigal MD [address] [place] [address] PCP - General 04/03/19 Abel Madrigal MD [address] [place] [address] PCP - [employer] Medicare Advantage PCP 02/26/21 Amarilis Swanson, presser cotton ginningBank Analyst 04/16/23 Team Status: Active Member Role Status Dates Dr. Abel Madrigal MD Primary Care Provider Activ e Dr. Fatmata Brower , Emergency Provider Active Dr. Rufus Lane MD Other Provider Active Dr. Bubba Youngblood MD Admit Provider, Other Provider Active Dr. Wenceslao Marquez MD Other Provider Active Dr. Teo Pelaez MD Attending Provider, Other Provid er Active Dr. Stephane Padilla DO Other Provider Active Dr. Gil Disla MD Other Provider Active Dr. Sruthi Billings MD Other Provider Active Dr. Dennys Melgoza MD Other Provider Active Dr. Lori Gomes MD Other Provider Active Dr. Maynor Reaves MD Other Provider Active Dr. Patricio Amador MD Other Provider Active Dr. Roger Feng MD Other Provider Active Dr. Oscar Calix MD Other Provider Active Dr. Carlos Burgos MD Other Provider Active Dr. Mau Acharya MD Other Provider Active Dr. Wesley Martinez DO Referring Provider, Other Provid er Active Team Status: Active Member Role Status Dates Dr. Abel Madrigal MD Primary Care Provider Activ e Dr. Wesley Uriostegui MD Attending Provider Active Dr. Jeremy Melo , Referring Provider Active Team Status: Active Member Role Status Dates Dr. Abel Madrigal MD Primary Care Provider Activ e Dr. Fatmata Brower , Emergency Provider Active Dr. Rufus Lane MD Other Provider Active Dr. Bubba Youngblood MD Admit Provider, Other Provider Active Dr. Wesley Martinez DO Referring Provider, Other Provid er Active Dr. Wenceslao Marquez MD Other Provider Active Dr. Teo Pelaez MD Attending Provider, Other Provid er Active Dr. Stephane Padilla DO Other Provider Active Dr. Gil Disla MD Other Provider Active Dr. Sruthi Billings MD Other Provider Active Dr. Dennys Melgoza MD Other Provider Active Dr. Lori Gomes MD Other Provider Active Dr. Maynor Reaves MD Other Provider Active Dr. Patricio Amador MD Other Provider Active Dr. Roger Feng MD Other Provider Active Dr. Oscar Calix MD Other Provider Active Dr. Carlos Burgos MD Other Provider Active Dr. Mau Acharya MD Other Provider Active Team Status: Inactive Member Role Status Dates Dr. Abel Madrigal MD Primary Care Provider, Refe rring Provider Active Dr. Mau Acharya MD Attending Provider Active Dr. Rufus Lane MD Other Provider Active Supervisor Intelligence Analyst Relationship Specialty Start Date End Date Abel Madrigal MD [address] [place] [address] PCP - General 04/03/19 Abel Madrigal MD [address] [place] [address] PCP - A[employer] Medicare Advantage PCP 02/26/21 Amarilis Swanson RN Care Bank Analyst 04/16/23 Supervisor Intelligence Analyst Relationship Specialty Start Date End Date Abel Madrigal MD [address] [place] [address] PCP - General 04/03/19 Abel Madrigal MD [address] [place] [address] PCP - A[employer]na Medicare Advantage PCP 02/26/21 Team Status: Active Member Role Status Dates Dr. Abel Madrigal MD Primary Care Provider Activ e Team Status: Inactive Member Role Status Dates Dr. Abel Madrigal MD Primary Care Provider Activ e Start: March 31, 2024 End: March 31, 2024 Dr. Abel Madrigal MD Referring Provider Active Start: March 31, 2024 End: March 31, 2024 Phyllis Givens PA, PA Attending Provider Active Start: March 31, 2024 End: March 31, 2024 Team Status: Inactive Member Role Status Dates Dr. Abel Madrigal MD Primary Care Provider Activ e Start: April 11, 2024 End: April 11, 2024 Phyllis Givens PA, PA Attending Provider Active Start: April 11, 2024 End: April 11, 2024 Phyllis Givens PA, PA Referring Provider Active Start: April 11, 2024 End: April 11, 2024 Team Status: Active Member Role Status Dates Dr. Abel Madrigal MD Primary Care Provider Activ e Start: April 11, 2024 Phyllis Givens PA, PA Referring Provider Active Start: April 11, 2024 Phyllis Givens PA, PA Other Provider Active Start: April 11, 2024 Dr. Himanshu Koch MD Attending Provider Active S tart: April 11, 2024 Team Status: Inactive Member Role Status Dates Dr. Abel Madrigal MD Primary Care Provider Activ e Start: June 06, 2024 End: June 06, 2024 Dr. Abel Madrigal MD Attending Provider Active Start: June 06, 2024 End: June 06, 2024 Dr. Abel Madrigal MD Referring Provider Active Start: June 06, 2024 End: June 06, 2024 Supervisor Intelligence Analyst Relationship Specialty Start Date End Date Abel Madrigal MD [address] [place] [address] PCP - General 04/03/19 Abel Madrigal MD [address] [place] [address] PCP - A[employer]na Medicare Advantage PCP 02/26/21 Team Status: Inactive Member Role Status Dates Dr. Abel Madrigal MD Primary Care Provider Activ e Start: June 20, 2024 End: June 20, 2024 Dr. Abel Madrigal MD Attending Provider Active Start: June 20, 2024 End: June 20, 2024 Dr. Abel Madrigal MD Referring Provider Active Start: June 20, 2024 End: June 20, 2024 Team Status: Active Member Role/Relationship Status Dates Dr. Abel Madrigal MD Primary care physician Acti ve Team Status: Active Member Role/Relationship Status Dates Dr. Abel Madrigal MD Primary care physician Acti ve Start: September 29, 2024 EVE Saucedo Attending physician Active Star t: September 29, 2024 EVE Saucedo Referring Provider Active Start : September 29, 2024 Team Status: Active Member Role/Relationship Status Dates Dr. Abel Madrigal MD Primary care physician Acti ve Start: November 21, 2024 Dr. Abel Madrigal MD Attending physician Active Start: November 21, 2024 Dr. Abel Madrigal MD Referring Provider Active Start: November 21, 2024 Team Status: Inactive Member Role/Relationship Status Dates Dr. Abel Madrigal MD Primary care physician Acti ve Start: December 02, 2024 End: December 02, 2024 Dr. Abel Madrigal MD Referring Provider Active Start: December 02, 2024 End: December 02, 2024 Dr. Himanshu Koch MD Attending physician Active Start: December 02, 2024 End: December 02, 2024 Supervisor Intelligence Analyst Relationship Specialty Start Date End Date Abel Madrigal MD [address] [place] [address] PCP - General 04/03/19 Abel Madrigal MD [address] [place] [address] PCP - A[employer] Medicare Advantage PCP 02/26/21 Team Status: Inactive Member Role/Relationship Status Dates Dr. Abel Madrigal MD Primary care physician Acti ve Start: November 21, 2024 End: November 21, 2024 Dr. Abel Madrigal MD Attending physician Active Start: November 21, 2024 End: November 21, 2024 Dr. Abel Madrigal MD Referring Provider Active Start: November 21, 2024 End: November 21, 2024 Team Status: Inactive Member Role/Relationship Status Dates Dr. Abel Madrigal MD Primary care physician Acti ve Start: December 02, 2024 End: December 02, 2024 Dr. Himanshu Koch MD Attending physician Active Start: December 02, 2024 End: December 02, 2024 Dr. Himanshu Koch MD Referring Provider Active S tart: December 02, 2024 End: December 02, 2024 Reason for Visit (unrecogniz ed section and content) Reason Comments Follow-up Medicare wellness wi [facility] labs Reason Comments Follow-up Pt covid positive to day has cough some times a minor headache was taking airborne Reason Comments Follow-up Hospitals discharge for septic shock and kidney stone Reason Comments Follow-up 1 wk fu labs Reason Comments Follow-up Meddicare wellness 6 mo fu labs Reason Comments Follow-up 6 mo fu labs Reason Comments Follow-up Medicare wellness wi th labs Reason Comments 6 month follow up Review labs FOR RECORDS PERTAINING TO PATIENTS WHO ARE [...] BE BASED ON THE PRIMARY CLINICAL RECORDS. [employer] provides no warranty or guarantee of the accuracy or completeness of information in this document.
--- NOTE | 2025-01-23 07:15 | RAD_ITS ---
PROCEDURE: ABDOMEN SINGLE VIEW 01/23/2025 REASON FOR EXAM: CALCULUS OF KIDNEY TECHNIQUE: Procedure Code: RADABD Modality: DX Procedure: ABDOMEN SINGLE VIEW COMPARISON: KUB, 02/06/2024. FINDINGS: There is a nonobstructive bowel gas pattern. There is a 4 mm calcific density projected over the left renal outline consistent with a caliceal stone. There are no calcific densities projected over the right renal outline or along the path of either ureter. There are no significant bony abnormalities. RAD/Abdomen Single View IMPRESSION: Left nephrolithiasis does not appear significantly changed in position. Reading Location: [id number]
[2025-01-23 08:15] LABS: PSA,Total- Diagnostic < 0.02 ng/mL (0.00-4.00)
== END | disposition home or self-care (01) ==
LOC: LAB 07:10
PROVIDERS: PCP Internal Medicine; Referring Provider Nurse Practitioner; Visit Provider Nurse Practitioner
DX: C61 Malignant neoplasm of prostate (principal); N20.0 Calculus of kidney
CPT/HCPCS: 36415; 74018; 84153